=== PATIENT | female | born 1955 | race Hispanic/Latino ===

== ENCOUNTER → 2018-04-14 11:10 | Outpatient (CLI) | payer OTHER, SELFPAY ==
--- NOTE | 2018-04-14 | DI.MG.S_ITS ---
BILATERAL DIGITAL SCREENING MAMMOGRAM 3D/2D WITH CAD: 04/14/2018 CLINICAL: Routine screening. Comparison is made to exams dated: 08/08/2016 mammogram, 01/23/2011 mammogram, and 01/22/2010 mammogram - [facility]. There are scattered fibroglandular elements in both breasts. Current study was also evaluated with a Computer Aided Detection (CAD) system. No significant masses, calcifications, or other findings are seen in either breast. There has been no significant interval change. IMPRESSION: NEGATIVE There is no mammographic evidence of malignancy. A 1 year screening mammogram is recommended. This exam was interpreted at Station ID: [id number]. NOTE: For mammograms, a report in lay terms will be sent to the patient. Approximately 15% of breast malignancies will not be visualized mammographically. In the management of a palpable breast mass, a negative mammogram must not discourage biopsy of a clinically suspicious lesion. Electronically Signed By: Godwin sosa/penrad:04/14/2018 19:35:57 copy to: Henrique Gomes letter sent: Normal Exam ACR BI-RADS Category 1: Negative 3341F
== END ==
PROVIDERS: PCP Family Medicine; Visit Provider Family Medicine
DX: Z12.31 Encounter for screening mammogram for malignant neoplasm of breast (principal)
CPT/HCPCS: 77063; 77067

== ENCOUNTER → 2018-09-22 11:05 | Outpatient (CLI) | payer OTHER, SELFPAY ==
--- NOTE | 2018-09-22 | DI.US.S_ITS ---
ULTRASOUND OF RIGHT AXILLA: 09/22/2018 CLINICAL: Palpable right axilla lump. No prior exams were available for comparison. Ultrasound of the right axilla was performed. Large amounts of lipomatous tissue were seen, but no discrete lipoma. No suspicious lymph nodes or other axillary masses. IMPRESSION: NEGATIVE There is no sonographic evidence of malignancy. Lipomatous tissue corresponds to the patient's abnormality. Clinical followup is recommended. Return to annual mammogram screening schedule is recommended. Findings and recommendations conveyed to the patient. This exam was interpreted at Station ID: [id number]. Electronically Signed By: Donna forde/:09/22/2018 17:08:40 copy to: Henrique Gomes letter sent: Clinical Evaluation Ultrasound BI-RADS: 1 Negative
== END ==
PROVIDERS: PCP Family Medicine; Visit Provider Nurse Practitioner Family
DX: N63.31 Unspecified lump in axillary tail of the right breast (principal)
CPT/HCPCS: 76882

== ENCOUNTER 2018-10-29 09:54 | Day surgery (SDC) | payer OTHER, SELFPAY ==
[2018-10-15 09:27] VITALS: BMI 42.7
--- NOTE | 2018-10-29 | PATH_ITS ---
[facility] Accession Number: [id number] . 01 Material submitted: . breast - ECTOPIC BREAST TISSUE,RIGHT AXILLA . 02 Diagnosis: Ectopic Breast Tissue, Right Axilla (weight 255 grams): Skin with no significant histomorphologic abnormality. Fibroadipose tissue and benign breast parenchyma (13.5 cm in greatest dimension); negative for atypia or malignancy. MRV/11/02/2018 . 02 Electronically signed: . Kandace Osorio MD, Pathologist NPI- [id number] . 01 Gross description: . Received in formalin, labeled ectopic breast tissue right axilla, is an unoriented piece of adipose tissue (255 grams, 13.5 x 12.5 x 2.9 cm) with overlying garza smooth shiny unremarkable skin (12.3 x 8.0 cm). The adipose tissue has a garza-yellow homogeneous cut surface. No nodules, masses or lesions are identified. [employer] tissue submitted in cassettes A1 and A2. ([id number]) /MRV . 02 Pathologist provided ICD-10: D17.9 . 02 CPT . 679202 Performed at: 01 [facility] [address] [facility], [place], [place] [id number] MD Adriano Francois MD Phone: [phone] Performed at: 02 [facility] [address] [place], [place] [id number] MD Elizabet Hanna MD Phone: [phone]
[2018-10-29 10:35] VITALS: BP 147/88; PULSE 83; RESP 16; TEMP 36.7; O2SAT 95; BMI 42.7
[2018-10-29 10:48] VITALS: BMI 42.7
[2018-10-29] MEDS: CEFAZOLIN 2 GM/100 ML FROZ.PIGGY IV (12:30)
--- NOTE | 2018-10-29 12:32 | PM.PREOP ---
Pre-operative Note Interval Note History & Physical reviewed/Exam performed by Physician: Yes Changes to H&P: No H&P completed within 30 days and has changed as indicated here:: Please see office note from visit in September to my office for H&P.
--- NOTE | 2018-10-29 12:50 | SUR.OPER ---
Supine on padded OR bed, head on pillow, arms secured on padded arm boards at <90 degrees abduction, towel roll under scapula, pillow under right arm, legs uncrossed, safety belt at thigh, tape over blanket over lower legs.
[2018-10-29] MEDS: BUPIVACAINE 0.5% W/ EPI (PF) VIAL 30 ML INJ (13:30)
[2018-10-29 13:53] VITALS: BP 120/63; PULSE 79; RESP 10; TEMP 36.3; O2SAT 96
[2018-10-29 14:00] VITALS: BP 119/70; PULSE 88; RESP 17; O2SAT 93
[2018-10-29 14:05] VITALS: BP 116/62; PULSE 86; RESP 17; O2SAT 94
--- NOTE | 2018-10-29 14:09 | P.OP_ITS ---
Operative Date/Time/Diagnoses Date of procedure: 10/29/18 Time of procedure: 14:03 Pre-op diagnosis: LARGE AMOUNT OF RIGHT AXILLARY ECTOPIC BREAST TISSUE Post-op diagnosis: same Procedure & Clinicians Procedure: Excision of ectopic breast tissue Same procedure as scheduled: Yes Indications: Patient with a large amount of ectopic breast tissue in the right axilla. Becoming painful and interfering with movement of her arm. Surgeon: Alan Hopkins Click Yes if Unassisted: Yes Anesthesia Type: General Operative Notes Findings: Large amount of mostly fatty tissue in the right axilla. Measured a pproximately 15 x 10 x 7 cm Closure Type: primary Specimen(s): none sent Applied: drain(s) (7 mm Shabbir-Santos) Estimated Blood Loss (mL): 15 Blood products transfused: none Procedure in detail: Patient is placed supine on the operating table and underwent general LMA anesthesia. Roll was placed in the right flank the arm was supported on a pillow. She was prepped and draped in the usual fashion. Local anesthetic was infiltrated an elliptical incision made over this large mass in her right axilla. Incisions were carried down to the level of the axilla but we never entered the axilla. The tissue was excised. The patient had a Shabbir-Santos drain placed in the base. The deep fat was closed with interrupted 3 Vicryl. The subcu was closed with interrupted 3 0 Vicryl. Skin was closed with hari and a few interrupted 3 0 nylon sutures. Dressing was applied. Patient was awakened, extubated and taken recovery area in good condition. Complications: none Condition: stable Disposition: PACU Plan for aftercare: Follow-up in the office
[2018-10-29 14:10] VITALS: BP 124/68; PULSE 84; RESP 17; O2SAT 93
[2018-10-29 14:30] VITALS: BP 134/78; PULSE 82; RESP 18; TEMP 36.2; O2SAT 95
[2018-10-29] MEDS: HYDROCODONE/ACET 5/325 TABLET 1 TAB PO (14:51)
== END 2018-10-29 15:29 | disposition home or self-care (01) ==
PROVIDERS: PCP Family Medicine; Visit Provider Specialist
PROC: (CPT 19120; principal; 2018-10-29 11:15)
DX: Q83.8 Other congenital malformations of breast (principal)
CPT/HCPCS: 19120; J0690; J1100; J2250; J2405; J2704; J3010

== ENCOUNTER 2019-02-18 07:38 | Day surgery (SDC) | payer OTHER, SELFPAY ==
--- NOTE | 2019-02-18 | PATH_ITS ---
[facility] Accession Number: [id number] . 01 Material submitted: . cecum - CECAL BIOPSY . 02 Diagnosis: Cecum, Biopsy: Active colitis with ischemia-type changes. Please see comment. Negative for granulomas, dysplasia and malignancy. MRV 02/19/2019 1011 Local . 02 Comment: The differential diagnosis of ischemia-type change includes infection (i.e., enterohemorrhagic E. coli, C. difficile, etc.), true vascular ischemia, and trauma/prolapse. . 02 Electronically signed: . Elizabet Hanna MD, Pathologist NPI- [id number] . 01 Gross description: . CECAL BIOPSY: Received in formalin are 3 fragment(s) of garza, soft tissue measuring 0.1 x 0.1 x 0.1 cm to 0.2 x 0.1 x 0.1 cm which is entirely submitted and submitted entirely in 1 cassette(s) /[facility] 02/18/20191956 Local . 02 Pathologist provided ICD-10: K55.9 . 02 CPT . 368549 Performed at: 01 [facility] [address], [place], [place] [id number] MD Adriano Francois MD Phone: [phone] Performed at: 02 [facility] [address] [place], [place] [id number] MD Elizabet Hanna MD Phone: [phone]
[2019-02-18 07:59] VITALS: BMI 42.9
[2019-02-18 08:03] VITALS: BP 124/78; PULSE 73; RESP 20; TEMP 36.3; O2SAT 93
[2019-02-18] MEDS: SODIUM CHLORIDE 0.9% 1,000 ML 200 ML IV (08:09)
--- NOTE | 2019-02-18 08:42 | PM.HP.1 ---
History of Present Illness History of Present Illness Date Patient Seen: 02/18/19 Time Patient Seen: 08:42 Chief complaint: [id number] Narrative: The patient is a woman here for screening colonoscopy. Her last exam was over 10 years ago. No immediate family members with colon cancer though she did have an uncle and a dad side that she discovered recently has from colon cancer. Patient History Medical History (Updated 02/18/19 @ 08:43 by Alan Hopkins MD) Depression (Acute) Ectopic breast tissue (Acute) Surgical History History of (Resolved) Hx of Achilles tendon repair (Resolved ~2004) Family History Father Gallstones Diabetes mellitus Mother Diabetes mellitus Sister Diabetes mellitus Grandfather Heart disease Grandmother Heart disease Brother Heart disease Social History marital status: household members: spouse occupational status: previously employed Smoking Status: Never smoker alcohol intake: current substance use type: does not use Family & Social History Family History Father Gallstones Diabetes mellitus Mother Diabetes mellitus Sister Diabetes mellitus Grandfather Heart disease Grandmother Heart disease Brother Heart disease Social History: household members spouse Tobacco & Substance use: Smoking Status Never smoker alcohol intake current Substance Use Type does not use Meds Home Medications and Allergies Home Medications Medication Instructions Recorded Confirmed Type ibuprofen 600 mg tablet 600 mg PO BID 10/13/18 02/18/19 History Allergies Allergy/AdvReac Type Severity Reaction Status Date / Time codeine AdvReac Unknown Hallucinati Verified 02/18/19 07:58 ons Review of Systems Review of Systems ROS Unobtainable: All systems reviewed & are unremarkable except as noted in HPI and below Respiratory Comments: Has had asthma in the past. No cough at this time. Exam Vital Signs (past 8 hours): - 02/18/19 08:03 Temperature 97.4 F L Pulse Rate 73 Respiratory Rate 20 Blood Pressure 124/78 Pulse Oximetry 93 Oxygen Delivery Method Room Air Narrative Exam Narrative: Pleasant cooperative patient no apparent distress. Lungs are clear to auscultation. No rales or rhonchi. Heart regular rate and rhythm no murmur gallop. Abdomen is soft nontender without mass. No obvious hernias. Patient is alert and oriented x3. Assessment & Plan Assessment & Plan narrative: The patient for a screening colonoscopy. I have discussed the procedure with them. Risks of bleeding, perforation which would necessitate major operation, failure to find remove all lesions, the potential tattoo were all discussed. All questions were answered. They wished to proceed.
--- NOTE | 2019-02-18 08:44 | PM.PREOP ---
Pre-operative Note Interval Note History & Physical reviewed/Exam performed by Physician: Yes Changes to H&P: No ASA Class (for procedural sedation): I
[2019-02-18] MEDS: fentaNYL 250 MCG/5 ML INJ IV (08:49)
[2019-02-18] MEDS: MIDAZOLAM 5 MG/5 ML VIAL IV (08:50)
--- NOTE | 2019-02-18 09:13 | PM.OP.ENDO ---
Operative Date/Time/Diagnoses Date of procedure: 02/18/19 Time of procedure: 09:13 Pre-op diagnosis: Screening exam Post-op diagnosis: same (Inflammation around the appendiceal opening.) Procedure & Clinicians Study performed: Colonoscopy with cold biopsy Same procedure as scheduled: Yes Surgeon: Alan Hopkins Procedure Notes SCOAP/Timeout: Performed Procedure in detail: The patient was placed in the left lateral decubitus position and underwent IV sedation directed by the surgeon consisting of fentanyl and Versed. Digital exam was unremarkable. The scope was inserted and advanced through the rectum into the sigmoid, descending, transverse, and ascending colon. No lesions were seen.. The cecum was reached identified by the ileocecal valve and the appendiceal opening. When I initially entered the cecum the area around the appendix was bulged in as though there were mass and there was inflammation. However as I insufflated and the call cecum gradually expanded this area flattened but it remained inflamed. I took biopsies of the inflamed area. The ileocecal valve was briefly cannulated. The terminal ileum was normal in appearance. The scope was gradually brought out. No Polyps were found. The scope ultimately was retroflexed in the rectum. The appearance was normal go to the end. The scope was removed and the patient tolerated the procedure well. Prep was good. Scope withdrawal time: 8.5 minutes Sedation minutes: 20 Findings: other findings (Inflammation around the appendiceal opening) Specimen(s): other (Cecal biopsies) Post-procedure Recommendations: Colonscopy in 10 years Follow up: as needed Disposition: PACU
[2019-02-18 09:17] VITALS: BP 106/77; PULSE 78; RESP 18; TEMP 36.5; O2SAT 95
[2019-02-18 09:22] VITALS: BP 126/70; PULSE 75; RESP 14; O2SAT 93
[2019-02-18 09:27] VITALS: BP 121/81; PULSE 76; RESP 14; TEMP 36.8; O2SAT 97
[2019-02-18 09:36] VITALS: BP 139/81; PULSE 73; RESP 16; TEMP 36.5; O2SAT 95
== END 2019-02-18 09:55 | disposition home or self-care (01) ==
PROVIDERS: PCP Family Medicine; Visit Provider Specialist
PROC: 0DJD8ZZ Inspection of Lower Intestinal Tract, Via Natural or Artificial Opening Endoscopic (ICD-10-PCS; CPT 45378; principal; 2019-02-18 08:45)
DX: Z12.11 Encounter for screening for malignant neoplasm of colon (principal); K52.89 Other specified noninfective gastroenteritis and colitis
CPT/HCPCS: 45380; 99152; J2250; J3010

== ENCOUNTER → 2020-05-29 11:32 | Outpatient (CLI) | payer OTHER, SELFPAY ==
--- NOTE | 2020-05-29 | DI.MRI.S_ITS ---
PROCEDURE: MR LUMBAR SPINE WO CON INDICATIONS: Monoplegia of lower limb affecting TECHNIQUE: Noncontrast sagittal T1 spin echo and T2 fast echo, sagittal STIR, axial T1 and T2 fast spin echo through the lumbar spine. In cases with scoliosis, additional coronal T2 fast spin echo may be performed. COMPARISON: None. FINDINGS: Image quality: Excellent. Alignment and Curvature: There is normal bony alignment. Bone Marrow: Marrow is of normal overall signal. No acute vertebral body compression fractures. Spinal Cord: Conus medullaris terminates at the L1 level. Visualized cord demonstrates normal signal and size. Paraspinous Soft Tissues: No paravertebral masses. T12-L1: Disc bulge. Mild facet hypertrophy. No canal stenosis or foraminal stenosis. L1-L2: Disc bulge. Facet hypertrophy. No canal stenosis or foraminal stenosis. L2-L3: Disc bulge. Shallow associated minimal posterior disc extrusion behind superior portion of L3 without associated canal stenosis. Bilateral facet hypertrophy, right greater than left. Mild left foraminal narrowing. L3-L4: Moderate diffuse disc bulge. Facet and ligament hypertrophy. Mild canal stenosis. Mild bilateral foraminal stenosis. L4-L5: Moderate disc height loss. Moderate central posterior disc protrusion indenting on the thecal sac. Facet and ligament hypertrophy. Spiy-iu-gbeczyff canal stenosis. Mild left foraminal narrowing. L5-S1: Disc bulge. Bilateral facet hypertrophy. No significant canal stenosis. Mild bilateral foraminal narrowing. IMPRESSION: 1. Diffuse degenerative change. 2. Canal stenosis is mild at L3-L4 and yuel-bn-rreahjje at L4-L5. 3. Multilevel facet arthropathy. Dictated by: Jair Phillips M.D. on 05/29/2020 at 12:12 Approved by: Jair Phillips M.D. on 05/29/2020 at 12:17
== END ==
PROVIDERS: Referring Provider Nurse Practitioner Family; Visit Provider Nurse Practitioner Family
DX: G83.10 Monoplegia of lower limb affecting unspecified side (principal); M47.816 Spondylosis without myelopathy or radiculopathy, lumbar region; M48.061 Spinal stenosis, lumbar region without neurogenic claudication
CPT/HCPCS: 72148

== ENCOUNTER → 2021-03-29 09:09 | Outpatient (CLI) | payer MEDICARE, OTHER, SELFPAY ==
[2021-03-29 10:17] LABS: Add Manual Diff / Slide Review NO; Basophils Absolute Auto 100 /uL (0-100); Basophils Percent Auto 0.7 % (0-2); Eosinophils Absolute Auto 600 /uL (0-450); Eosinophils Percent Auto 7.6 % (2-4); Hematocrit 45.9 % (36-46); Hemoglobin 15.6 g/dL (12.0-16.0); Lymphocytes Absolute Auto 3000 /uL (1100-4500); Lymphocytes Percent Auto 36.8 % (25-40); Mean Corpuscular Hemoglobin 32.4 PG (26-34); Mean Corpuscular Volume 95.3 fL (80-100); Monocytes Absolute Auto 700 /uL (0-900); Neutrophils Absolute Auto 3700 /uL (1500-7000); Neutrophils Percent Auto 45.9 % (50-75); Platelet Count 179 X10^3/uL (150-400); Red Blood Cell Count 4.81 X10^6/uL (4.0-5.2); Red Cell Distribution Width 13.8 % (11.6-14.8); White Blood Cell Count 8.1 X10^3/uL (4.5-11.0)
[2021-03-29 11:02] LABS: Alanine Aminotransferase 57 IU/L (<35); Albumin 4.3 g/dL (3.5-5.0); Albumin Globulin Ratio 1.1 (1.0-2.8); Alkaline Phosphatase 100 U/L (38-126); Aspartate Aminotransferase 69 IU/L (14-36); BUN Creatinine Ratio 22.6 (6-22); Bilirubin Total 1.5 mg/dL (0.2-1.3); Blood Urea Nitrogen 14 mg/dL (7-17); Calcium 9.2 mg/dL (8.4-10.2); Carbon Dioxide 26 mmol/L (22-32); Chloride 107 mmol/L (98-107); Cholesterol 244 mg/dL (140-199); Estimated Glomerular Filt Rate > 60.0 mL/min (>60); Globulin 3.9 g/dL (1.7-4.1); Glucose 115 mg/dL (80-110); HDL Cholesterol 70 mg/dL (40-60); LDL Cholesterol Calculated 147 mg/dL (<100); Potassium 5.3 mmol/L (3.4-5.1); Sodium 141 mmol/L (137-145); Total Protein 8.2 g/dL (6.3-8.2); Triglycerides 133 mg/dL (35-150)
[2021-03-29 11:22] LABS: HEMOLYSIS 273 (0-50)
[2021-03-29 11:44] LABS: TSH w/ Reflex to FT4 4.03 uIU/mL (0.47-4.68)
[2021-03-29 15:59] LABS: Creatinine Urine Random 85.8 mg/dL
[2021-03-29 16:01] LABS: Microalbumin Urine Random < 0.6 mg/dL (0-1.6)
== END ==
PROVIDERS: Family Provider Family Medicine; PCP Family Medicine; Referring Provider Family Medicine; Visit Provider Family Medicine
DX: G89.29 Other chronic pain (principal); I10 Essential (primary) hypertension; M54.50 Low back pain, unspecified; R20.0 Anesthesia of skin
CPT/HCPCS: 36415; 80053; 80061; 82043; 82570; 84443; 85025

== ENCOUNTER → 2021-04-02 12:18 | Outpatient (CLI) | payer MEDICARE, OTHER, SELFPAY ==
--- NOTE | 2021-04-02 12:21 | DI.MRI.S_ITS ---
PROCEDURE: MR LUMBAR SPINE WO CON INDICATIONS: low back pain with left-sided numbness TECHNIQUE: Noncontrast sagittal T1 spin echo and T2 fast echo, sagittal STIR, axial T1 and T2 fast spin echo through the lumbar spine. In cases with scoliosis, additional coronal T2 fast spin echo may be performed. COMPARISON: [facility], , MR LUMBAR SPINE WO CON, 05/29/2020, 11:35. FINDINGS: Image quality: Excellent. Alignment and Curvature: No plain films are available for comparison, for numbering purposes. Thus, for the purposes of this examination, 5 lumbar type vertebral bodies will be presumed, as denoted on the montage panel. This should be confirmed and correlated with plain films, prior to any lumbar spinal intervention. There is mild, grade 1 retrolisthesis of T11 on T12, T12 on L1, L1 on L2, and L2 on L3. Bone Marrow: Marrow is of normal overall signal. No acute vertebral body compression fractures. Mild reactive signal throughout the endplates of the lumbar and lower thoracic spine. Spinal Cord: Conus medullaris terminates at the mid L1 level. Visualized cord demonstrates normal signal and size. Paraspinous Soft Tissues: No paravertebral masses. T12-L1: Moderate disc height loss and desiccation. Mild diffuse disc bulge with small superimposed central protrusion. Mild facet and ligamentum flavum hypertrophy. Mild canal stenosis. Mild bilateral foraminal stenosis. No significant change. L1-L2: Moderate disc height loss and desiccation. Mild diffuse disc bulge with superimposed broad-based left posterolateral protrusion. Mild facet and ligamentum flavum hypertrophy. Mild epidural lipomatosis. Mild canal stenosis. Mild left greater than right foraminal stenosis. No significant change. L2-L3: Moderate disc height loss and desiccation. Mild diffuse disc bulge with superimposed left paracentral disc extrusion which extends inferiorly within the left anterior epidural space, and is unchanged. There is a superimposed broad-based left far lateral protrusion, as before. Mild facet and ligamentum flavum hypertrophy. Mild epidural lipomatosis. Moderate canal stenosis. Mild left greater than right foraminal stenosis. No significant change. L3-L4: Moderate disc height loss and desiccation. Moderate diffuse disc bulge. Mild facet and ligamentum flavum hypertrophy. Mild epidural lipomatosis. Severe canal stenosis. Moderate right and mild left foraminal stenosis. No significant change. L4-L5: Severe disc height loss and desiccation. Moderate diffuse disc bulge with small superimposed central protrusion. Mild facet and ligamentum flavum hypertrophy. Mild epidural lipomatosis. Increased, severe canal stenosis. Increased, moderate bilateral foraminal stenosis. L5-S1: Moderate disc height loss and desiccation. Mild diffuse disc bulge. Mild bilateral facet hypertrophy. Mild canal stenosis. Moderate bilateral foraminal stenosis. No significant change. IMPRESSION: 1. Multilevel degenerative disc and facet disease, as well as ligamentum flavum hypertrophy and epidural lipomatosis. 2. Multilevel canal stenoses, worst at L3-L4 and L4-L5, where there is severe canal stenosis. 3. Multilevel foraminal stenoses, worst at L3-L4, L4-L5, and L5-S1, where there are moderate foraminal stenoses. Dictated by: Sharon Butcher M.D. on 04/02/2021 at 13:52 Approved by: Sharon Butcher M.D. on 04/02/2021 at 14:01
== END ==
PROVIDERS: Family Provider Family Medicine; PCP Family Medicine; Referring Provider Family Medicine; Visit Provider Family Medicine
DX: M51.36 Other intervertebral disc degeneration, lumbar region (principal); M54.50 Low back pain, unspecified; M51.37 Other intervertebral disc degeneration, lumbosacral region; M48.07 Spinal stenosis, lumbosacral region; M48.061 Spinal stenosis, lumbar region without neurogenic claudication; R20.0 Anesthesia of skin; G89.29 Other chronic pain; I10 Essential (primary) hypertension; E88.2 Lipomatosis, not elsewhere classified
CPT/HCPCS: 72148

== ENCOUNTER → 2021-04-12 12:07 | Outpatient (CLI) | payer MEDICARE, OTHER, SELFPAY ==
--- NOTE | 2021-04-12 12:09 | DI.MG.S_ITS ---
BILATERAL DIGITAL SCREENING MAMMOGRAM 3D/2D WITH CAD: 04/12/2021 CLINICAL: Routine screening. Comparison is made to exams dated: 04/14/2018 mammogram, 08/08/2016 mammogram, and 01/23/2011 mammogram - [facility]. There are scattered fibroglandular elements in both breasts. Current study was also evaluated with a Computer Aided Detection (CAD) system. No significant masses, calcifications, or other findings are seen in either breast. There has been no significant interval change. IMPRESSION: NEGATIVE There is no mammographic evidence of malignancy. A 1 year screening mammogram is recommended. This exam was interpreted at Station ID: [id number]. NOTE: For mammograms, a report in lay terms will be sent to the patient. Approximately 15% of breast malignancies will not be visualized mammographically. In the management of a palpable breast mass, a negative mammogram must not discourage biopsy of a clinically suspicious lesion. Electronically Signed By: Chivo Baum M.D. at/oskar:04/12/2021 12:59:47 copy to: Henrique Gomes letter sent: Normal Exam ACR BI-RADS Category 1: Negative 3341F
== END ==
PROVIDERS: Family Provider Family Medicine; PCP Family Medicine; Referring Provider Family Medicine; Visit Provider Family Medicine
DX: Z12.31 Encounter for screening mammogram for malignant neoplasm of breast (principal)
CPT/HCPCS: 77063; 77067

== ENCOUNTER → 2021-04-18 10:07 | Outpatient (CLI) | payer MEDICARE, OTHER, SELFPAY | PROVIDERS: Family Provider Family Medicine; PCP Family Medicine; Referring Provider Family Medicine; Visit Provider Family Medicine | DX: Z78.0 Asymptomatic menopausal state (principal); Z82.62 Family history of osteoporosis; Z13.820 Encounter for screening for osteoporosis; M85.852 Other specified disorders of bone density and structure, left thigh | CPT/HCPCS: 77080 ==

== ENCOUNTER → 2021-10-02 08:07 | Outpatient (CLI) | payer MEDICARE, OTHER, SELFPAY ==
[2021-10-02 09:45] LABS: Alanine Aminotransferase 46 IU/L (<35); Albumin 3.6 g/dL (3.5-5.0); Albumin Globulin Ratio 1.1 (1.0-2.8); Alkaline Phosphatase 118 U/L (38-126); Aspartate Aminotransferase 45 IU/L (14-36); BUN Creatinine Ratio 21.7 (6-22); Bilirubin Total 0.6 mg/dL (0.2-1.3); Blood Urea Nitrogen 15 mg/dL (7-17); Calcium 8.8 mg/dL (8.4-10.2); Carbon Dioxide 27 mmol/L (22-32); Chloride 109 mmol/L (98-107); Estimated Glomerular Filt Rate > 60 mL/min (>60); Globulin 3.3 g/dL (1.7-4.1); Glucose 115 mg/dL (80-110); HEMOLYSIS < 15 (0-50); Potassium 4.3 mmol/L (3.4-5.1); Sodium 141 mmol/L (137-145); Total Protein 6.9 g/dL (6.3-8.2)
== END ==
PROVIDERS: Family Provider Family Medicine; PCP Family Medicine; Referring Provider Family Medicine; Visit Provider Family Medicine
DX: R74.8 Abnormal levels of other serum enzymes (principal)
CPT/HCPCS: 36415; 80053

== ENCOUNTER → 2021-10-15 11:58 | Outpatient (CLI) | payer MEDICARE, OTHER, SELFPAY ==
--- NOTE | 2021-10-15 11:59 | DI.RAD.S_ITS ---
PROCEDURE: XR KNEE RT 3V INDICATIONS: bilateral knee pain TECHNIQUE: 3 views of the knee were acquired. COMPARISON: None. FINDINGS: Bones: No fractures or dislocations. No suspicious bony lesions. Mild medial compartment joint space loss. No osteophytosis. Soft tissues: No joint effusion. No suspicious soft tissue calcifications. IMPRESSION: Mild medial compartment joint space loss. No evidence acute bony abnormality of the right knee. If clinical suspicion and/or symptoms persist, further assessment with repeat plain films, or advanced imaging (e.g., CT, MRI, or bone scan) may be helpful for further assessment. Dictated by: Jair Phillips M.D. on 10/15/2021 at 14:48 Approved by: Jair Phillips M.D. on 10/15/2021 at 14:50
--- NOTE | 2021-10-15 11:59 | DI.RAD.S_ITS ---
PROCEDURE: XR KNEE LT 3V INDICATIONS: bilateral knee pain TECHNIQUE: 3 views of the knee were acquired. COMPARISON: None. FINDINGS: Bones: No fractures or dislocations. No suspicious bony lesions. Mild medial compartment joint space loss without osteophytosis. Soft tissues: No joint effusion. No suspicious soft tissue calcifications. IMPRESSION: Mild medial compartment joint space loss. No evidence acute bony abnormality of the left knee. If clinical suspicion and/or symptoms persist, further assessment with repeat plain films, or advanced imaging (e.g., CT, MRI, or bone scan) may be helpful for further assessment. Dictated by: Jair Phillips M.D. on 10/15/2021 at 14:47 Approved by: Jair Phillips M.D. on 10/15/2021 at 14:48
== END ==
PROVIDERS: Family Provider Family Medicine; PCP Family Medicine; Referring Provider Family Medicine; Visit Provider Family Medicine
DX: M25.561 Pain in right knee (principal); M25.562 Pain in left knee
CPT/HCPCS: 73562

== ENCOUNTER → 2021-12-18 07:45 | Outpatient (CLI) | payer MEDICARE, OTHER, SELFPAY ==
[2021-12-18 10:31] LABS: Alanine Aminotransferase 44 IU/L (<35); Albumin 3.7 g/dL (3.5-5.0); Albumin Globulin Ratio 1.2 (1.0-2.8); Alkaline Phosphatase 110 U/L (38-126); Aspartate Aminotransferase 40 IU/L (14-36); BUN Creatinine Ratio 20.3 (6-22); Bilirubin Total 0.5 mg/dL (0.2-1.3); Blood Urea Nitrogen 14 mg/dL (7-17); Calcium 8.9 mg/dL (8.4-10.2); Carbon Dioxide 26 mmol/L (22-32); Chloride 108 mmol/L (98-107); Estimated Glomerular Filt Rate > 60 mL/min (>60); Globulin 3.2 g/dL (1.7-4.1); Glucose 110 mg/dL (80-110); HEMOLYSIS < 15 (0-50); Potassium 4.4 mmol/L (3.4-5.1); Sodium 141 mmol/L (137-145); Total Protein 6.9 g/dL (6.3-8.2)
[2021-12-18 10:39] LABS: NT-proBNP (BNP-Adult 18+) 98 pg/mL (<125)
== END ==
PROVIDERS: Family Provider Family Medicine; PCP Family Medicine; Referring Provider Family Medicine; Visit Provider Family Medicine
DX: R60.0 Localized edema (principal); R01.1 Cardiac murmur, unspecified; R74.8 Abnormal levels of other serum enzymes
CPT/HCPCS: 36415; 80053; 83880

== ENCOUNTER → 2022-01-17 09:23 | Outpatient (CLI) | payer MEDICARE, OTHER, SELFPAY ==
--- NOTE | 2022-01-17 09:25 | DI.ECHO.S_ITS ---
[facility]---------+ [facility] +---------+ : : [address] : : : : [id number] : : : : Phone: [phone] Echocardiogram Report + + :Name: SAE NAGEL Study Date: 01/17/2022 Height: 60 in : :[facility] ReadingLocation: Weight: 190 lb : : Gender: Female BSA: 1.8 m2 : :: 1955 Age: 66 yrs BP: 156/109 mmHg: :Reason For Study: Murmur : :Ordering Physician: GUILLERMO, : :ANDRESSA Performed By: Fito Jefferson : :Referring: ANDRESSA LI : + + Interpretation Summary The left ventricle is normal in size. Left ventricular systolic function is normal. The ejection fraction is estimated to be 55-60%. There are no focal wall motion abnormalities. Diastolic parameters suggest a relaxation abnormality of the left ventricle, consistent with probable normal filling pressures. The right ventricle is normal in size and function. Pulmonary artery pressures cannot be estimated because of the lack of a measurable TR jet velocity. Both atria are normal in size. There is no significant valvular heart disease. The ascending aorta is mild-moderately enlarged. Procedure: A two-dimensional transthoracic echocardiogram with color flow and Doppler was performed. The study quality was technically adequate. There is no prior echocardiogram noted for this patient. The patient was in normal sinus rhythm during the exam. Left Ventricle: The left ventricle is normal in size. There is borderline concentric left ventricular hypertrophy. Left ventricular systolic function is normal. The ejection fraction is estimated to be 55-60%. There are no focal wall motion abnormalities. Diastolic parameters suggest a relaxation abnormality of the left ventricle, consistent with probable normal filling pressures. Right Ventricle: The right ventricle is normal in size and function. Atria: Both atria are normal in size. The interatrial septum grossly appears intact with no obvious evidence for an atrial septal defect. Mitral Valve: There is mild mitral annular calcification. There is no mitral regurgitation noted. Aortic Valve: The aortic valve is normal in structure and function. No aortic regurgitation is present. Tricuspid Valve: The tricuspid valve is normal in structure and function. There is a trace or physiologic amount of tricuspid regurgitation. Pulmonary artery pressures cannot be estimated because of the lack of a measurable TR jet velocity. Pulmonic Valve: The pulmonic valve is normal in structure and function. There is no pulmonic valvular regurgitation. There is no significant valvular heart disease. Great Vessels: The aortic root is normal size. The ascending aorta is mild- moderately enlarged. The IVC is of normal diameter and collapses greater than 50% with a sniff. This suggests a low right atrial pressure of 3 mm Hg. Pericardium/ Pleura There is no pericardial effusion. There is no pleural effusion. MMode/2D Measurements & Calculations LVIDd: 4.5 cm LVOT diam: 2.0 cm LVIDs: 3.0 cm Ao root diam: 2.9 cm FS: 33.5 % asc Aorta Diam: 4.0 cm IVSd: 1.2 cm LVPWd: 1.0 cm LV guerrero. diameter/BSA (cm/m^2): 2.5 LV sys. diameter/BSA (cm/m^2): 1.6 LA dimension: 3.5 cm RA long axis: 3.8 cm LA A2 area: 18.9 cm2 LA A4 area: 15.1 cm2 LA length (vol): 5.5 cm LA vol: 43.7 ml LA vol index: 23.9 ml/m2 TAPSE_phl: 1.9 cm Doppler Measurements & Calculations Ao V2 max: 175.0 cm/sec LVOT Max Mirza: 121.0 cm/sec Ao V2 mean: 114.0 cm/sec LV V1 max P.9 mmHg Ao max P.0 mmHg LV V1 VTI: 19.4 cm Ao mean P.0 mmHg KATY(I,D): 2.1 cm2 Ao V2 VTI: 28.9 cm KATY(V,D): 2.2 cm2 sev ratio: 0.67 KATY indexed to BSA (cm^2/m^2): 1.2 MV E max mirza: 52.3 cm/sec SV(LVOT): 60.9 ml MV A max mirza: 88.7 cm/sec MV E/A: 0.59 Med Peak E' Mirza: 5.3 cm/sec E/E' med: 9.8 Lat Peak E' Mirza: 8.2 cm/sec E/E' lat: 6.4 E/e' average: 8.1 MV dec time: 0.28 sec AV VR_phl: 0.69 MV P1/2t-pr_phl: 80.0 msec KATY(VTI)/BSA_phl: 1.1 Reading Physician:07:37 PM
== END ==
PROVIDERS: Family Provider Family Medicine; PCP Family Medicine; Referring Provider Family Medicine; Visit Provider Family Medicine
DX: I77.89 Other specified disorders of arteries and arterioles (principal); R01.1 Cardiac murmur, unspecified; R60.0 Localized edema
CPT/HCPCS: 93306

== ENCOUNTER 2022-03-07 14:12 | Outpatient (CLI) | payer MEDICARE, OTHER, SELFPAY ==
[2022-03-07] VITALS (8 sets, daily range): BP systolic 128–166; BP diastolic 63–85; PULSE 64–78; RESP 14–21; TEMP 36.3; O2SAT 95–96
--- NOTE | 2022-03-07 14:14 | DI.RAD.S_ITS ---
PROCEDURE: PAIN L/S TRANSFORAMINAL INJECT INDICATIONS: SPONDYLOSIS COMPARISON: None. FINDINGS: Fluoroscopic spot filming was performed to verify placement of spinal needles at the left L4-L5 level(s), as labeled on the films. IMPRESSION: As labeled on the films, left L4-L5 needle placement. Dictated by: Stuart Maddox M.D. on 03/07/2022 at 17:15 Approved by: Stuart Maddox M.D. on 03/07/2022 at 17:15
[2022-03-07] MEDS: BETAMETHASONE 30 MG/5 ML MDV 6 MG INJ (14:54)
[2022-03-07] MEDS: MIDAZOLAM 2 MG/2 ML VIAL 4 MG IV (14:54)
[2022-03-07] MEDS: BUPIVACAINE 0.25% (PF) VIAL 2 ML INJ (14:54)
[2022-03-07] MEDS: IOPAMIDOL 15 ML VIAL 3 ML INJ (14:54)
[2022-03-07] MEDS: DEXAMETHASONE 10 MG/ML VIAL 20 MG INJ (14:55)
--- NOTE | 2022-03-07 15:09 | P.PCN_ITS ---
Date/Time/Diagnoses Date of procedure: 03/07/22 Time of procedure: 15:09 Pre-procedure diagnosis: 1. FORAMINAL STENOSIS WITH LE SYMPTOMS Post-procedure diagnosis: same Procedure Notes Procedure: 1. FLUOROSCOPICALLY GUIDED CONTRAST CONTROLLED TRANSFORAMINAL EPIDURAL STEROID INJECTION - LEFT L4/5 Indications: Benita is referred by Dr. Menezes for treatment of Foraminal Stenosis with Left LE Symptoms Physician: Xavier Okeefe Total Fluoroscopy time (seconds): 9 Total sedation minutes: 9 Complications: none Procedure in detail & Post-procedure care: FINDINGS Foraminal Nerve Root Compression secondary to disc disease and facet hypertrophy DESCRIPTION OF PROCEDURE Following review of allergy and review of potential side effects and complications, including, but not necessarily limited to, infection, allergic reaction, local tissue breakdown, stroke, temporary or permanent nerve injury, paralysis, and possible , the patient indicated that the patient understood and agreed to proceed. An informed consent document was signed by the patient, witnessed by a nurse, and placed in the patient's chart. Additionally, other treatment options including medications, modalities, and physical therapy were reviewed with the patient. After review of previous anaesthesic history and IV conscious sedation the patient was deemed safe to proceed with today?s procedure with IV conscious sedation as ASA class II designation. Safety time-out was performed to confirm patient ID, procedure to be performed and site of procedure. IV sedation was accomplished with a combination of 4mg of Versed administered by the RN after DO order, titrated to patient comfort during the course of the procedure while the patient remained responsive to all verbal commands In the prone position following sterile prep and drape of the lumbar region, the left L4/5 posterior neuroforamen was identified fluoroscopically. The skin was anesthetized via a 25-gauge 1.5-inch needle with 1% lidocaine solution. At this point, a 22-gauge 5-inch spinal needle was atraumatically introduced and advanced under fluoroscopic guidance through the posterior left L4/5 neuroforamen to approximately the anterior aspect of the canal. Depth was confirmed on lateral view. Following negative aspiration, injection of approximately 1.5 cc of Isovue 200 under live fluoroscopy in the AP view confirmed excellent flow along the nerve root, into the epidural space without vascular or intrathecal uptake observed Radiological data, including multiple fluoroscopic views of the lumbosacral spine, reveal a spinal needle at the left L4/5 posterior neuroforamen. Subsequent views show flow of contrast material flowing superiorly and inferiorly along the nerve root confirming epidural flow. Subsequently, a test dose of 1.5 cc of 1% lidocaine solution was administered and patient was observed for two minutes for signs or symptoms of complications, including abdominal pain, shortness of breath, bilateral upper or lower extremity weakness, nausea and vomiting, prior to steroid injection. At this point, a total of 3cc or 20mg of dexamethasone and 6mg of betamethasone was injected without incident. The procedure tolerated the procedure well without signs or symptoms of complications prior to transfer to the recovery area continued monitoring without incident. The patient was then transferred to the recovery area where they were observed for an appropriate time after the injection. The patient reported a VAS score of 7 prior to the procedure and a post- procedure VAS of 0. POST OP INSTRUCTIONS The patient was provided a Pain Log to continue to record their response to the target-specific procedure prior to follow-up visit with their referring physician. Additionally, specific post-injection care instructions and a contact number to our office were provided if concerns arise regarding possible complications associated with the procedure are suspected.
== END 2022-03-07 15:32 | disposition home or self-care (01) ==
LOC: RAD 14:12
PROVIDERS: Family Provider Family Medicine; PCP Family Medicine; Referring Provider Physical Medicine & Rehabilitation; Visit Provider Physical Medicine & Rehabilitation
DX: M48.061 Spinal stenosis, lumbar region without neurogenic claudication (principal); M51.16 Intervertebral disc disorders with radiculopathy, lumbar region
CPT/HCPCS: 64483; J0702; J1100; J2250; J3490

== ENCOUNTER 2022-06-25 10:38 | Outpatient (CLI) | payer MEDICARE, OTHER, SELFPAY ==
[2022-06-25] VITALS (9 sets, daily range): BP systolic 129–172; BP diastolic 62–101; PULSE 71–88; RESP 16–22; TEMP 36.2; O2SAT 94–100
--- NOTE | 2022-06-25 10:40 | DI.RAD.S_ITS ---
PROCEDURE: PAIN L INTERLAMINAR/CAUDAL INJ INDICATIONS: SPONDYLOSIS COMPARISON: [facility], XA, PAIN L/S TRANSFORAMINAL INJECT, 03/07/2022, 14:54. [facility] [place], CR, XR LUMBAR SPINE WITH OBLIQUES, 04/17/2021, 10:38. FINDINGS: Fluoroscopic spot filming was performed to verify placement of spinal needles at the L4-L5 level(s), as labeled on the films. Appropriate location(s) of the needle tip(s) was confirmed by injection of iodinated contrast. IMPRESSION: Procedural imaging guidance provided. Dictated by: Priyank Cummings M.D. on 06/25/2022 at 12:46 Approved by: Priyank Cummings M.D. on 06/25/2022 at 12:47
[2022-06-25] MEDS: MIDAZOLAM 2 MG/2 ML VIAL IV (11:26)
[2022-06-25] MEDS: BETAMETHASONE 30 MG/5 ML MDV 6 MG INJ (11:31)
[2022-06-25] MEDS: IOPAMIDOL 15 ML VIAL 3 ML INJ (11:31)
[2022-06-25] MEDS: DEXAMETHASONE 10 MG/ML VIAL 20 MG INJ (11:32)
[2022-06-25] MEDS: BUPIVACAINE 0.25% (PF) VIAL 2 ML SUBCUT (11:32)
--- NOTE | 2022-06-25 11:39 | P.PCN_ITS ---
Date/Time/Diagnoses Date of procedure: 06/25/22 Time of procedure: 11:40 Pre-procedure diagnosis: 1. HNP WITH RADICULAR FEATURES, 2. MULTILEVEL CENTRAL STENOSIS, Post-procedure diagnosis: same Procedure Notes Procedure: 1. FLUOROSCOPICALLY GUIDED CONTRAST CONTROLLED INTERLAMINAR EPIDURAL STEROID INJECTION -L4/5 Indications: Benita is referred by Dr. Menezes for treatment of Bilateral Foraminal Stenosis R>L LE symptoms. Physician: Xavier Okeefe Total Fluoroscopy time (seconds): 6 Total sedation minutes: 8 Complications: none Procedure in detail & Post-procedure care: FINDINGS Multilevel Central Spinal Stenosis with Nerve Root Compression DESCRIPTION OF PROCEDURE Fluoroscopically guided, contrast-controlled L4/5 translaminar epidural steroid injection. Following review of allergy and review of potential side effects and complications, including, but not necessarily limited to, infection, allergic reaction, local tissue breakdown, temporary as well as permanent nerve injury, paralysis, stroke and possible , the patient indicated that the patient understood and agreed to proceed. An informed consent document was signed by the patient, witnessed by a nurse, and placed in the patient's chart. Additionally, other treatment options including modalities, medications, and physical therapy were reviewed with the patient. After review of previous anaesthesic history and IV conscious sedation the patient was deemed safe to proceed with today?s procedure with IV conscious sedation as ASA class II designation. Safety time-out was performed to confirm patient ID, procedure to be performed and site of procedure. IV sedation was accomplished with a combination of 2mg of Versed was administered by the RN after DO order, titrated to patient comfort during the course of the procedure while the patient remained responsive to all verbal commands In the prone position, following sterile prep and drape of the lumbar region, the L4/5 translaminar space was identified fluoroscopically. The skin was anesthetized via a 25-gauge, 1.5inch needle with 1% lidocaine solution. At this point, a 22-gauge short bevel spinal needle was atraumatically introduced and ad vanced under fluoroscopic guidance into the region of the L4/5 translaminar space. Depth was confirmed on lateral view. Radiological data, including multiple fluoroscopic views of the lumbar spine, reveal a spinal needle at the L4/5 translaminar space. Lateral views then show placement of the needle in the epidural space. Subsequent views show contrast material flowing superiorly and inferiorly in the epidural space. No vascular or intrathecal uptake is observed. At this point, using loss of resistance technique with saline and air, the epidural space was entered. This was confirmed following negative aspiration with injection of approximately 1.5cc of Isovue 200, showing excellent epidural flow without vascular or intrathecal uptake. At this point, 1cc of 1% lidocaine solution combined with 3cc or 20mg of dexamethasone and 6mg betamethasone was injected without incident. The patient tolerated the procedure well without signs or symptoms of complications prior to transfer to the recovery area continued monitoring without incident. The patient was then transferred to the recovery area where they were observed for an appropriate period of time after the injection. The patient reported a VAS score of 6 prior to the procedure and a post- procedure VAS of 0. POST OP INSTRUCTIONS The patient was provided a Pain Log to continue to record their response to the target-specific procedure prior to follow-up visit with their referring physician. Additionally, specific post-injection care instructions and a contact number to our office were provided if concerns arise regarding possible complications associated with the procedure are suspected.
== END 2022-06-25 12:05 | disposition home or self-care (01) ==
LOC: RAD 10:39
PROVIDERS: Family Provider Family Medicine; PCP Family Medicine; Referring Provider Physical Medicine & Rehabilitation; Visit Provider Physical Medicine & Rehabilitation
DX: M51.16 Intervertebral disc disorders with radiculopathy, lumbar region (principal); M48.061 Spinal stenosis, lumbar region without neurogenic claudication
CPT/HCPCS: 62323; J0702; J1100; J2250; J3490

== ENCOUNTER → 2022-07-17 12:09 | Outpatient (CLI) | payer MEDICARE, OTHER, SELFPAY ==
--- NOTE | 2022-07-17 12:10 | DI.RAD.S_ITS ---
PROCEDURE: XR LUMBAR SPINE MIN 4V INDICATIONS: BACK PAIN TECHNIQUE: 5 views of the lumbar spine were acquired, including bilateral oblique views. COMPARISON: None. FINDINGS: Bones: 5 nonrib-bearing vertebrae are present. Trace retrolisthesis L1 on L2. Severe disc height loss L4-5 and moderate disc height loss at other levels including T12-L1. Mild anterior endplate spurs, most prominent at L4-5. Multilevel facet hypertrophy and sclerosis from L3 through S1. No vertebral body compression fractures. No suspicious bony lesions. Soft tissues: Overlying bowel gas pattern is normal. No suspicious soft tissue calcifications. Oblique images: No pars defects. IMPRESSION: 1. Multilevel spondylosis. 2. Trace spondylolisthesis. Dictated by: Donna Rojas M.D. on 07/17/2022 at 13:15 Approved by: Donna Rojas M.D. on 07/17/2022 at 13:18
== END ==
PROVIDERS: Family Provider Family Medicine; PCP Family Medicine; Referring Provider Physical Medicine & Rehabilitation; Visit Provider Physical Medicine & Rehabilitation
DX: M48.061 Spinal stenosis, lumbar region without neurogenic claudication (principal); M51.16 Intervertebral disc disorders with radiculopathy, lumbar region; M47.26 Other spondylosis with radiculopathy, lumbar region; M47.27 Other spondylosis with radiculopathy, lumbosacral region
CPT/HCPCS: 72110

== ENCOUNTER → 2022-07-29 12:10 | Outpatient (CLI) | payer MEDICARE, OTHER, SELFPAY ==
--- NOTE | 2022-07-29 12:19 | DI.MRI.S_ITS ---
PROCEDURE: MR LUMBAR SPINE WO CON INDICATIONS: progressive Stenosis TECHNIQUE: Noncontrast sagittal T1 spin echo and T2 fast echo, coronal T2, sagittal STIR, and T2 fast spin echo through the lumbar spine. COMPARISON: [facility], MR, MR LUMBAR SPINE WO CON, 04/02/2021, 12:32. [facility], CR, XR LUMBAR SPINE MIN 4V, 07/17/2022, 12:07. FINDINGS: Image quality: Excellent. Alignment and Curvature: 5 lumbar type vertebral bodies are present by plain film. 2 mm of retrolisthesis of T11 on T12, T12 on L1, and L1 on L2. Bone Marrow: Marrow is of normal overall signal. No acute vertebral body compression fractures. Mild reactive signal throughout the endplates of the lumbar and lower thoracic spine. Spinal Cord: Conus medullaris terminates at the L1 level. Visualized cord demonstrates normal signal and size. Paraspinous Soft Tissues: No paravertebral masses. T12-L1: Moderate disc height loss and desiccation. Mild diffuse disc bulge with small superimposed central protrusion. Mild facet and ligamentum flavum hypertrophy. Mild canal stenosis. Mild bilateral foraminal stenosis. No significant change. L1-L2: Moderate disc height loss and desiccation. Mild diffuse disc bulge. Mild facet and ligamentum flavum hypertrophy. Mild epidural lipomatosis. Mild canal stenosis. Mild left greater than right foraminal stenosis. No significant change. L2-L3: Moderate disc height loss and desiccation. Mild diffuse disc bulge with superimposed left paracentral and left far lateral protrusions. Previously seen small left paracentral disc extrusion is unchanged. Mild facet and ligamentum flavum hypertrophy. Mild epidural lipomatosis. There is increased, severe canal stenosis. Increased, moderate left foraminal stenosis. No change in mild right foraminal stenosis. L3-L4: Moderate disc height loss and desiccation. Moderate diffuse disc bulge. Mild facet and ligamentum flavum hypertrophy. Mild epidural lipomatosis. Severe canal stenosis. Increased, moderate to severe right foraminal stenosis with right L3 nerve root compression. No change in mild left foraminal stenosis. L4-L5: Moderate disc height loss and desiccation. Moderate diffuse disc bulge. Moderate facet and ligamentum flavum hypertrophy. Mild epidural lipomatosis. Severe canal stenosis. Moderate bilateral foraminal stenosis. No significant change. L5-S1: Moderate disc height loss and desiccation. Mild diffuse disc bulge. Moderate bilateral facet hypertrophy. No significant canal stenosis. Moderate bilateral foraminal stenosis. No significant change. IMPRESSION: 1. Multilevel degenerative disc and facet disease, as well as ligamentum flavum hypertrophy and epidural lipomatosis. 2. Multilevel canal stenoses, worst at L2-L3, L3-L4, and L4-L5, where there are severe canal stenoses. 3. Multilevel foraminal stenoses, worst at L3-L4 where there is associated intraforaminal nerve root compression. Recommend correlation with clinical symptoms to ascertain relevance of this finding. Dictated by: Sharon Butcher M.D. on 07/29/2022 at 14:12 Transcribed by: FREDO on 07/29/2022 at 14:17 Approved by: Sharon Butcher M.D. on 07/29/2022 at 16:22
== END ==
PROVIDERS: Family Provider Family Medicine; PCP Family Medicine; Referring Provider Physical Medicine & Rehabilitation; Visit Provider Physical Medicine & Rehabilitation
DX: M48.07 Spinal stenosis, lumbosacral region (principal); M48.061 Spinal stenosis, lumbar region without neurogenic claudication; M51.26 Other intervertebral disc displacement, lumbar region; M47.816 Spondylosis without myelopathy or radiculopathy, lumbar region; M47.817 Spondylosis without myelopathy or radiculopathy, lumbosacral region; M51.36 Other intervertebral disc degeneration, lumbar region; M51.37 Other intervertebral disc degeneration, lumbosacral region
CPT/HCPCS: 72148

== ENCOUNTER → 2022-11-11 14:01 | Outpatient (CLI) | payer MEDICARE, OTHER, SELFPAY ==
--- NOTE | 2022-11-11 14:03 | DI.RAD.S_ITS ---
PROCEDURE: XR KNEE LT 3V INDICATIONS: bilateral knee pain TECHNIQUE: 3 views of the knee were acquired. COMPARISON: [facility], CR, XR KNEE LT 3V, 10/15/2021, 11:48. FINDINGS: Bones: No acute fractures or dislocations. No suspicious bony lesions. Moderate joint space narrowing is seen at the medial femorotibial compartment with small marginal osteophytes and subchondral sclerosis. There is mild joint space narrowing at the lateral and anterior compartments. Soft tissues: No joint effusion. Mild chondrocalcinosis. IMPRESSION: 1. 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 2. Chondrocalcinosis. Differential diagnosis includes but is not limited to CPPD, hyperparathyroidism, and hemochromatosis. Approved by: Gerry Johnson M.D. on 11/11/2022 at 16:46
--- NOTE | 2022-11-11 14:03 | DI.RAD.S_ITS ---
PROCEDURE: XR KNEE RT 3V INDICATIONS: bilateral knee pain TECHNIQUE: Three views each of the right and left knee were acquired. COMPARISON: [facility], CR, XR KNEE LT 3V, 10/15/2021, 11:48. FINDINGS: Bones: No acute fractures or dislocations. No suspicious bony lesions. Moderate to severe joint space narrowing is seen at the right medial femorotibial compartment with subchondral sclerosis and marginal osteophyte formation. Mild narrowing of the right lateral compartment and moderate narrowing of the right anterior compartment. Mild tricompartmental joint space narrowing is seen in the left knee. Soft tissues: No joint effusion. No suspicious soft tissue calcifications. IMPRESSION: Bilateral tricompartmental osteoarthrosis is most notable and moderate to severe at the right medial femorotibial compartment. Approved by: Gerry Johnson M.D. on 11/11/2022 at 16:40
== END ==
PROVIDERS: Family Provider Family Medicine; PCP Family Medicine; Referring Provider Family Medicine; Visit Provider Family Medicine
DX: M17.0 Bilateral primary osteoarthritis of knee (principal); M25.561 Pain in right knee; M25.562 Pain in left knee
CPT/HCPCS: 73562

== ENCOUNTER → 2023-03-27 12:41 | Outpatient (CLI) | payer MEDICARE, OTHER, SELFPAY ==
[2023-03-27 13:14] LABS: Add Manual Diff / Slide Review NO; Basophils Absolute Auto 100 /uL (0-100); Eosinophils Absolute Auto 500 /uL (0-450); Eosinophils Percent Auto 5.6 % (2-4); Hematocrit 43.6 % (36-46); Hemoglobin 14.7 g/dL (12.0-16.0); Lymphocytes Absolute Auto 2700 /uL (1100-4500); Lymphocytes Percent Auto 30.3 % (25-40); Mean Corpuscular HGB Conc 33.8 % (30-36); Mean Corpuscular Hemoglobin 33.7 PG (26-34); Mean Corpuscular Volume 99.6 fL (80-100); Monocytes Absolute Auto 800 /uL (0-900); Monocytes Percent Auto 8.7 % (3-14); Neutrophils Absolute Auto 4800 /uL (1500-7000); Neutrophils Percent Auto 54.4 % (50-75); Platelet Count 231 X10^3/uL (150-400); Red Blood Cell Count 4.37 X10^6/uL (4.0-5.2); White Blood Cell Count 8.8 X10^3/uL (4.5-11.0)
[2023-03-27 13:25] LABS: Hemoglobin A1C% w Est Avg Glu 5.6 % (4.0-6.0)
[2023-03-27 13:38] LABS: Blood Urea Nitrogen 11 mg/dL (7-17); Carbon Dioxide 25 mmol/L (22-32); Chloride 106 mmol/L (98-107); Estimated Glomerular Filt Rate > 60 mL/min (>60); Glucose 118 mg/dL (80-110); HEMOLYSIS < 15 (0-50); Potassium 4.1 mmol/L (3.4-5.1); Sodium 138 mmol/L (137-145)
[2023-03-27 13:43] LABS: Prealbumin 19.4 mg/dL (17.6-36.0)
[2023-03-27 15:48] LABS: Vitamin D 25 Hydroxy (D3) < 12.8 ng/mL (30.0-100.0)
[2023-03-27 21:32] LABS: Erythrocyte Sedimentation Rate 40 MM/HR (0-20)
== END ==
PROVIDERS: Family Provider Family Medicine; PCP Family Medicine; Referring Provider Orthopaedic Surgery Adult Reconstructive Orthopaedic Surgery; Visit Provider Orthopaedic Surgery Adult Reconstructive Orthopaedic Surgery
DX: Z01.818 Encounter for other preprocedural examination (principal); E55.9 Vitamin D deficiency, unspecified; R73.9 Hyperglycemia, unspecified; R77.0 Abnormality of albumin; Z01.812 Encounter for preprocedural laboratory examination; R70.0 Elevated erythrocyte sedimentation rate; R79.89 Other specified abnormal findings of blood chemistry
CPT/HCPCS: 36415; 80048; 82040; 82306; 83036; 84134; 85025; 85651; 86140; 93005

== ENCOUNTER 2023-04-18 06:24 | Day surgery (SDC) | payer MEDICARE, OTHER, SELFPAY ==
[2023-04-09 12:46] VITALS: BMI 43.9
[2023-04-18] VITALS (11 sets, daily range): BP systolic 120–164; BP diastolic 62–91; PULSE 46–75; RESP 12–22; TEMP 36.1–37.1; O2SAT 92–97; BMI 43.9
--- NOTE | 2023-04-18 06:00 | DI.RAD.S_ITS ---
PROCEDURE: XR KNEE LT 1TO2V INDICATIONS: TKA LEFT TECHNIQUE: 2 view(s) of the knee acquired. COMPARISON: [facility], CR, XR KNEE ARTHRITIC SERIES BI, 02/26/2023, 13:44. [facility], CR, XR KNEE LT 3V, 11/11/2022, 14:02. [facility], CR, XR KNEE RT 3V, 10/15/2021, 11:48. FINDINGS: Bones: Patient is status post knee joint arthroplasty. Hardware components are in expected positions. Visualized bony structures are intact. Soft tissues: Overlying postoperative changes are noted. IMPRESSION: Expected post-operative appearance of a knee arthroplasty. Dictated by: Kirk Quiroz M.D. on 04/18/2023 at 10:49 Approved by: Kirk Quiroz M.D. on 04/18/2023 at 10:50
[2023-04-18] MEDS: LACTATED RINGERS 1,000 ML 42 ML IV (06:48)
[2023-04-18] MEDS: ACETAMINOPHEN 325 MG TABLET 975 MG PO (06:48)
[2023-04-18] MEDS: MELOXICAM 7.5 MG TABLET PO (06:49)
--- NOTE | 2023-04-18 07:31 | PM.PREOP ---
Pre-operative Note Interval Note History & Physical reviewed/Exam performed by Physician: Yes Changes to H&P: No
--- NOTE | 2023-04-18 07:46 | SUR.PREOP ---
Block start time [0746] . Monitoring initiated and maintained throughout procedure. Oxygen and medications given per anesthesiologist instructions. Patient remained stable throughout procedure, no adverse reactions noted. Block end time [0750].
[2023-04-18] MEDS: TRANEXAMIC ACID 1,000 MG VIAL 1000 MG INJ ×2 (08:20→09:45)
[2023-04-18] MEDS: CEFAZOLIN 2 GM/100 ML PREMIX 100 ML IV (08:20)
--- NOTE | 2023-04-18 08:31 | SUR.OPER ---
Supine on padded OR bed. Pillow under head, arms secured on padded armboards <90 degree abduction. Safety belt across torso. Non-operative leg secured with tape over blanket over lower leg. Operative leg secured in Jay positioner. Foam padded brace at thigh of operative leg.
[2023-04-18] MEDS: ROPIVACAINE/EPI/CLONIDINE/KET 50 ML SYRINGE INJ (08:49)
--- NOTE | 2023-04-18 10:36 | PM.OP.1 ---
Operative Date/Time/Diagnoses Date of procedure: 04/18/23 Pre-op diagnosis: Left knee arthritis Post-op diagnosis: same Procedure & Clinicians Procedure: Left total knee arthroplasty Same procedure as scheduled: Yes Surgeon: Jorge Patton Welt Rougher: Mariposa Fong Anesthesia Type: General, Peripheral nerve block and Local Operative Notes Findings: Grade 3 changes throughout medial compartment with grade 2 changes throughout lateral compartment and meniscal tearing in both compartments. Minimal degenerative changes in the patellofemoral joint Prosthetic devices, grafts, tissues, transplants, or devices: Rc persona size 6 narrow femoral component with size C tibia with 14 by 30 stem extension and 10 mm medial congruent polyethylene insert Procedure in detail: This 67-year-old female patient was evaluated for left knee pain in clinic. She had significant impairment in activities of daily living secondary to her knee pain which correlated to degenerative changes in her knee. Risks and benefits of operative versus nonoperative management were discussed with her at length. She wished to proceed with operative management. She had exhausted prior nonoperative treatment. She used a cane and a walker because of this left knee pain. She was noted to have depression on a preoperative screening protocol and was started on an antidepressant by her primary care provider. Her BMI in clinic was measured at 38. During our check in for surgery her BMI was measured at 44, different by 6 from what we had measured preoperatively. Based on this difference I elected to use an incisional wound VAC as this change in BMI from our preoperative calculation to our day of surgery calculation does elevate her risk for wound complications. She and her family were met in the preoperative holding area. All questions were answered. The operative site was marked. Informed consent was signed. She was brought back to the operating room and general anesthesia was induced. She was given a peripheral nerve block in the form of an adductor canal block by anesthesia under ultrasound guidance. She was transferred to the operating table and prepped and draped in the usual sterile fashion. A time-out procedure was performed. The assistance of a physician business assistant was required throughout the case for soft tissue retraction, positioning, wound closure, room set up. Without the assistance of a skilled practitioner the surgery would have taken significantly longer. The tourniquet was inflated and a medial parapatellar approach to the knee was utilized. Flaps were elevated and the arthrotomy was marked 2 guide closure at the conclusion of the procedure. A medial release was performed off of the tibial joint line. Soft tissue was released from behind the patellar tendon to clear the lateral side of the tibia. The knee was brought into flexion and an opening Reamer was used to open the canal. A intramedullary guide was introduced. A 5 degree resection had been planned based off of the preoperative imaging. She is only 5 ft tall but had a mechanical axis anatomic axis difference of 5?. A +0 cut was planned and intersected the trochlea appropriately. This was resected. The knee was hyperflexed and externally rotated to allow access to the cruciates. These were resected. Retractors were placed on the tibia and a opening Reamer was used to open up the tibial canal. A ayse was introduced down the diaphysis and intramedullary resection for a +4 cut was planned. This was performed and a spacer block with a 10 mm spacer block allowed the knee to come into full extension. A forced cage screw wood pile driver operator was used on the fusion tensioner and the knee was noted to be approximately 3? tighter medially. Returning to flexion, I performed a posterior medial release. After the posterior medial release I returned to extension and found that the knee was 1 degree tighter medially than laterally and opened to 10 mm with 60 lb of force. Coming to flexion I applied 60 lb of force to the tensioner and the tensioner externally rotated to 5?. I pinned this for a 10 mm gap with 60 lb of force and a 5 degree external rotation. I measured the femoral size and it measured to a size 6. I placed the size 6 4 in 1 block and checked the notch point with an Jair wing. It was not going to notch. I placed the fusion block on the 4 in 1 block and opened it was 60 lb of force. This opened to 10 mm and neutral tension across the medial and lateral gaps. Being satisfied with the position of my 4 in 1 block both in terms of gap symmetry and gap balance I performed the 4 in 1 cuts while protecting the soft tissues with soft tissue retractors. The four in 1 block was removed and I sized the tibia. It was a size C. This was pinned in place. I placed a size 6 trial and a 10 mm medial congruent polyethylene. The knee achieved full extension, had minimal opening with either medial or lateral stress, had good passive knee flexion which allowed the heel to rest on the patient's buttock, had good patellar tracking, and had minimal lift-off with external and internal rotation at 90? of flexion. Being satisfied with this trial I planned to move forward with cementation. The tibia and femur were irrigated and dried. The cement was placed down the canal and impacted into the cut tibial surface. The tibial component was covered in cement and placed in the canal as it was guided in by the keel punch. Cement was removed from around the tibial component and a 2nd round of impaction was performed with a 2nd round of cement removal. The knee was flexed and the tibia was subluxed behind the femur. Cement was placed on the femur and the femoral component was impacted into place. Excess cement was removed from around the femur. A 10 mm cruciate retaining polyethylene insert was used for trialing to allow for easier polyethylene insertion and removal. The cement was allowed to cure while the knee remained in full extension. The soft tissues were bathed in a dilute mixture of Betadine and peroxide. The cement was allowed to fully cure and the tourniquet was taken down. Hemostasis was achieved. The knee was again trialed and I elected to move forward with implantation of a 10 mm medial congruent polyethylene. The knee was inspected for excess cement and some was removed. The 10 mm polyethylene was inserted. A dilute mixture of ropivacaine epinephrine clonidine and Toradol was injected throughout the wound including the MCL, posterior capsule on the medial side only, VMO, periosteum medially, periosteum laterally, patellar tendon. The wound was closed using a combination of Vicryl Stratafix and Monocryl sutures. Dermabond was applied. A robert dressing was applied due to the patient's high BMI. The knee was wrapped in an Boyd wrap and ice was applied prior to the patient leaving operating room. The patient was taken to the PACU where she awoke without complication. She was examined in the PACU and had intact plantar flexion and dorsiflexion of her hallux and ankle as well as a palpable DP pulse. Post-operative Plan for aftercare: Weightbearing as tolerated Aspirin 81 twice per day We will send a prescription for cefadroxil twice per day for 7 days given high BMI Prescription have previously been sent including oxycodone for pain control Anticipate mobilization with physical therapy today and discharge home either later today or tomorrow morning Follow up in my clinic in 2 weeks
[2023-04-18] MEDS: IBUPROFEN 600 MG TABLET PO (11:33)
[2023-04-18] MEDS: ACETAMINOPHEN 325 MG TABLET 650 MG PO (11:34)
[2023-04-18] MEDS: LACTATED RINGERS 1,000 ML 100 ML IV (11:34)
[2023-04-18] MEDS: OXYCODONE IR 5 MG TABLET PO ×2 (11:34→16:18)
--- NOTE | 2023-04-18 12:20 | P.PCN_ITS ---
Peripheral Nerve Block Note Pre-Procedure Reason for block: Attending surgeon request/order for post-op pain management Pre-procedure checklist: Patient examined and chart reviewed, Risks, benefits, alternatives of block discussed, questions answered, Verification of anti- coagulation status, Site confirmed, Timeout performed and Standard ASA monitors applied Consent obtained from: Patient Procedure Date of procedure: 04/18/23 Start Time: 07:45 End Time: 07:50 Performed by: Viv Garcia Sedation - enter dose in comment field: IV Midazolam (mg) (2) and IV Fentanyl (mcg) (100) Location: Pre-Op (Left adductor canal nerve block, single shot) Position: Supine Laterality: Left Sterile Technique: Sterile barrier maintained, Sterile gloves, Mask, Sterile drapes and Chloraprep Equipment Single injection - Needle brand, gauge, length: PAJUNK- 21G x 100mm Medications Medications - enter concentration (%) & mL in comment field: Ropivacaine (0.5%, 20mls) Incremental aspiration prior to injection: Yes Ultrasound Reason for Ultrasound: U/S guidance used for needle placement and U/S used to visualize spread of anesthetic Image printed/saved/archived: Yes Limited exam reveals no abnormal findings: Yes Vital signs VS: - 04/18/23 06:36 04/18/23 07:00 04/18/23 07:02 Temperature 97.9 F Pulse Rate 61 Respiratory Rate 22 Blood Pressure 124/70 Pulse Oximetry 96 Oxygen Delivery Method Nasal Cannula Nasal Cannula Room Air Oxygen Flow Rate 04/18/23 07:54 04/18/23 10:20 04/18/23 10:25 Temperature 97.2 F L Pulse Rate 50 L 72 73 Respiratory Rate 16 15 12 Blood Pressure 120/79 151/79 H 164/62 H Pulse Oximetry 92 95 94 Oxygen Delivery Method Nasal Cannula Room Air Room Air Oxygen Flow Rate 3 04/18/23 10:30 04/18/23 10:45 04/18/23 10:50 Temperature 97 F L 98.8 F Pulse Rate 75 71 71 Respiratory Rate 12 12 14 Blood Pressure 150/81 H 150/81 H 148/70 H Pulse Oximetry 94 93 97 Oxygen Delivery Method Room Air Room Air Oxygen Flow Rate 2 04/18/23 10:50 04/18/23 11:20 Temperature 98.8 F 98.5 F Pulse Rate 71 75 Respiratory Rate 14 14 Blood Pressure 148/70 H 151/73 H Pulse Oximetry 97 96 Oxygen Delivery Method Oxygen Flow Rate 2 2 Oxygen Delivery Method Room Air Oxygen Flow Rate 2 Events Nerve Block Events: Procedure uneventful
--- NOTE | 2023-04-18 13:30 | PT.IIE ---
Current Diagnoses Unilateral primary osteoarthritis, left knee (04/18/23) Surgery Performed Operation Date: 04/18/23 07:45 Actual Procedures p Total Knee Arthroplasty(Left) - Jorge Patton MD Surgical History (Last Reviewed 04/18/23 @ 06:47 by Hannah Vaca, RN) Anesthesia History of History of surgery (10/29/18) Hx of Achilles tendon repair (~2004) Medical History (Last Reviewed 04/18/23 @ 06:48 by Hannah Vaca, RN) Ankle pain Asthma Carpal tunnel syndrome Chicken pox Chronic back pain Chronic cough Degenerative joint disease of knee Depression Diabetes insipidus Ectopic breast tissue Elevated liver enzymes Facet arthropathy, lumbar Heavy menstrual period Herniated nucleus pulposus, L4-5 History of COVID-19 (~09/2022) Hypertension Leg numbness Lumbar radiculopathy Lumbar spinal stenosis Lumbar spondylosis Measles Neuroforaminal stenosis of lumbar spine Osteoarthritis Painful menstrual periods Shoulder bursitis Vertigo Physical Therapy Inpatient Evaluation/Re-Eval M1 PT/OT-IP Prior Functional Status Start: 04/18/23 16:23 Freq: NEEDED Status: Discharge Protocol: Document 04/18/23 13:30 AB (Rec: 04/18/23 16:40 AB [email or web address]) Medical Review Prior Functional Status Medical History Reviewed Yes Communication able to make needs known Mobility and Gait pt stated that she was modified independent with all mobilities and ambulation using a SPC Social History Household Members spouse,children Living Arrangements House Number of Floors (Floors) Two Floors Number of Stairs To Enter/Railing? pt stays on the main level of the house pt has a ramp to enter the house Home Environment Standard Height Toilet,Walk in Shower,Ramp Home Equipment Four Wheel Walker,Straight Cane,Shower Seat without Backrest,Grab Bars In Shower Additional Social History Comment pt will have her spouse and daughter to assist her at home M2 PT-IP Current Condition Start: 04/18/23 16:23 Freq: NEEDED Status: Discharge Protocol: Document 04/18/23 13:30 AB (Rec: 04/18/23 16:40 AB [email or web address]) Physical Therapy Current Condition Current Condition Evaluation Date 04/18/23 Treatment Diagnosis s/p L TKA; difficulty in walking Onset Date 04/18/23 M3 PT-IP Subjective Start: 04/18/23 16:23 Freq: NEEDED Status: Discharge Protocol: Document 04/18/23 13:30 AB (Rec: 04/18/23 16:40 AB [email or web address]) Subjective Physical Therapy Visit Type Type Initial Evaluation Visit Start Time 13:30 Visit Stop Time 15:04 Total Visit Minutes 94 Number of SLEEPING CAR PORTER Visits 0 Physical Therapy Visit Comments Patient Comments agreeable to do PT Therapy Pain Assessment Pain When Pain Assessed At Rest Pain Present Pain Present Pain Reported Location L knee Intensity 3 Scale Used Numeric (0 - 10) Pain Management Techniques Apply Cold,Distraction, Modification of Treatment,Re- positioning,Timing of Activity with Medications M4 PT-IP Mobility and Gait Start: 04/18/23 16:23 Freq: NEEDED Status: Discharge Protocol: Document 04/18/23 13:30 AB (Rec: 04/18/23 16:40 AB [email or web address]) PT-Bed Mobility Assessment Supine to Sit Supine to Sit Standby Assistance Sit to Supine Sit to Supine Standby Assistance PT-Transfer Assessment Sit to and From Stand Sit to and from Stand Contact Guard Assistance,1 Person Assistance,Use of Upper Extremities Equipment Transfer Assistive Device Gait Belt,Front Wheeled Walker Orthotic/Prosthetic Devices or Brace: No Transfers Transfer Destination Chair Transfer Technique ambulated Transfer Ability Level of Assist Contact Guard Assistance, Minimal Assistance,1 Person Assistance,Use of Upper Extremities Comments Mobility Comments pt supine in bed. spouse and daughter in room. obtained home set up and PLOF. pt has a 4WW to use and does not have a FWW. informed pt that she might need a FWW. spouse stepped out to buy a FWW for pt. BP in supine: 133/74. O2 sat: 95% at RA. pt completed supine to sit SBA. able to sit on EOB SBA. c/o slight dizziness but dissipated after a few minutes of sitting. BP in sittin/68. pt completed sit to stand min A and cues. able to stand using FWW for support CGA. Pt found to have voided in bed. instructed pt to sit back on EOB. positioned bedside commode next to pt. completed sit to stand CGA and completed step transfer to bedside commode CGA to min A and cues for safety. pt completed sit to stand from the bedside commode CGA and was able to maintain standing CGA while NAC assisted with hygiene care and brief management. pt able to take steps to chair using FWW CGA ~ 2 ft. Caregiver training conducted. educated pt's daughter on use of safety belt and how to assist pt. daughter was able to put safety belt on and assisted pt with sit to stand. daughter was able to assist pt with ambulation in room using FWW CGA ~ 40 ft. pt sat back on the chair. positioned pt on the chair. put ice machine back on knee. call light and table placed within reach. spouse came back and stated that he has brought the FWW back to their house. educated spouse on how to set up and adjust FWW for pt. pt and family without further concerns. nurse informed regarding pt's mobility and d/c. Gait Assessment Gait Gait Assistance Required: Contact Guard Assist Distance (Feet) 40 Able to Maintain Weight Bearing Status Yes During Gait Assistive Devices Assistive Device Gait Belt,Front Wheeled Walker Orthotic/Prosthetic Devices or Brace: No Gait Deviations General Gait Pattern Antalgic,Decreased Stride Length,Decreased Feet Clearance Factors Limiting Gait Function Factors Limiting Gait Function Decreased Activity Tolerance, Decreased Strength,Difficulty Following Directions,Limited Range of Motion,Pain,Poor Balance PT-Balance Assessment Sitting Balance and Reactions Static Sitting Balance Ability Normal Dynamic Sitting Balance Ability Good Standing Balance and Reactions Static Standing Balance Ability Fair Dynamic Standing Balance Ability Fair Device Used FWW M5 PT-IP Objective Assessments Start: 04/18/23 16:23 Freq: NEEDED Status: Discharge Protocol: Document 04/18/23 13:30 AB (Rec: 04/18/23 16:40 AB [email or web address]) Orientation Orientation/Cognition Level of Alertness Alert Orientation Name,Place,Situation Language Function Ability No Deficits Noted Safety Awareness Decreased Safety Awareness Memory Description No Deficits Noted Gross Range of Motion Lower Extremity ROM Assessment Left Impaired Impairments L knee flexion: ~ 60 deg L knee extension: ~ 10 deg less to 0 Strength Lower Extremity Strength Assessment Left Impaired Hip 4-/5 Knee 3+/5 Muscle Tone Muscle Tone WNL Yes M6 PT-IP Treatment Start: 04/18/23 16:23 Freq: NEEDED Status: Discharge Protocol: Document 04/18/23 13:30 AB (Rec: 04/18/23 16:40 AB [email or web address]) Physical Therapy Treatment Education Education Provided Precautions,Weight Bearing Status,Post-Op Packet,Safety M7 PT-IP Assessment and Plan Start: 04/18/23 16:23 Freq: NEEDED Status: Discharge Protocol: Document 04/18/23 13:30 AB (Rec: 04/18/23 16:40 AB [email or web address]) PT Summary Assessment and Plan Potential Rehabilitation Potential Fair Status of Condition at Evaluation Evolving Summary Impairments Pain,ROM,Strength,Balance, Coordination,Sensation,Tone, Cognition,Bed Mobility, Transfers,Gait,Activity Tolerance Assessment Summary pt is a 67 y/o F s/p L TKA POD 0. pt requiring CGA with mobility using FWW. Caregiver training conducted and daughter was able to safely assist pt with mobility. pt has outpt PT set up. Pt plans to go home and family to assist. Goals Bed Mobility Goal Independent Transfer Goal Independent,Front Wheeled Walker Gait Goal Independent,Front Wheel Walker Gait Distance 300 Other Goals improve transfers and ambulation using LRAD >300 ft mod I Days to Meet Goals 5 Frequency of Treatment Frequency Of Treatment Twice a Day Treatment Plan Physical Therapy Treatment Plan Bed Mobility Training,Transfer Training,Gait Training, Therapeutic Exercise,Balance Retraining,Post Op Education, Discharge Planning,Hot or Cold Pack,Neuromuscular Re-ed, Coordination Retraining,Manual Therapy Weight Bearing Status Weight Bearing Status Weight Bear as Tolerated Allowed Weight Bearing Amount (enter % LLE WBAT or #) (%) Recommendations To Nursing Amount of Assist Needed 1 Person Assist Discharge Recommendations PT Discharge Recommendations Home with Assistance, Outpatient PT Transportation Needs at Discharge Private Vehicle
--- NOTE | 2023-04-18 14:04 | PM.PNPO.1 ---
Subjective Subjective Interval history: [facility] inpatient primary joints protocol: ? Above all else the entire care team needs to communicate a clear and consistent message to the patient that this surgery was performed in order to regain motion in their effected leg. Movement represents the best avenue towards early postoperative recovery.??The patient should be encouraged to move their operative limb, spend time in a chair instead of the bed, and ambulate as much as possible ?? As soon as the patient arrives from the PACU on the floor they should immediately change out of their hospital gown into their own clothing? ?? Physical therapy should be conducted as soon as feasibly possible.??If due to logistic reasons a physical therapist is unable to ambulate with the patient following surgery because they are unavailable or the patient arrives on the floor after the physical therapists have left for the day, a CORRESPONDENCE TRANSCRIBER or nursing staff should help the patient ambulate in the halls?on the night of surgery ? The IV should be locked unless it is being used to administer postoperative antibiotics to allow the patient to ambulate without their IV tower. If the patient is ready to ambulate during a time when IV fluids or IV antibiotics are being administered, they can be paused to allow ambulation as ambulation is the most important aspect of their postoperative recovery?? ? All patients undergoing a primary joint replacement will discharge home.??There is very strong evidence indicating that discharge to a shelter facility is an independent risk factor for numerous complications including periprosthetic joint infection.??Discharge to a shelter facility should not be discussed with patients undergoing a primary joint replacement.?? ? Opioids should be limited as much as possible. Many patients will be able to go through their entire postoperative recovery without ever requiring a single dose of opioids.??This includes in the PACU.??Patient should not receive any opioids unless they are complaining of significant pain.??Numerous multimodal strategies are utilized for every patient in order to control their pain.??This includes nerve blocks, injection of local anesthetic throughout the entire surgical site, acetaminophen, NSAIDs, and cryotherapy.?Oxycodone 5 mg is ordered on all patients not on chronic opioids prior to surgery.??No IV opioids are ordered.??If a patient fails to achieve adequate pain control following administration of 5 mg oxycodone, a second 5 mg administration can be utilized but should not be given unless it has been an hour since they had their first dosage. IV opioids are associated with much more severe nausea, constipation, alterations in mental status and respiratory depression and should be avoided.? ?? Cryotherapy is an essential component of pain control.??The small ice bags provided by the hospital do not get the surgical site cold enough to actually provide any analgesic effect.??Patients can either utilize a cryotherapy device which provides continuous cold fluid to the surgical site or a patient-belongings bag can be filled with ice and placed directly on the surgical site.??Solidifier powder can be placed inside of this patient belongings bag to limit the amount of moisture which accumulates around it, however if this is not available then wet sheets are preferable to administering excessive opioids? - Patients should be rapidly mobilized the day of surgery with the intention of discharging home without staying overnight. Not all patients will be able to return home the same day as their procedure, however this is the goal for all patients undergoing a primary joint replacement Exam Vital Signs (past 8 hours): - 04/18/23 06:36 04/18/23 07:00 04/18/23 07:02 Temperature 97.9 F Pulse Rate 61 Respiratory Rate 22 Blood Pressure 124/70 Pulse Oximetry 96 Oxygen Delivery Method Nasal Cannula Nasal Cannula Room Air Oxygen Flow Rate 04/18/23 07:54 04/18/23 10:20 04/18/23 10:25 Temperature 97.2 F L Pulse Rate 50 L 72 73 Respiratory Rate 16 15 12 Blood Pressure 120/79 151/79 H 164/62 H Pulse Oximetry 92 95 94 Oxygen Delivery Method Nasal Cannula Room Air Room Air Oxygen Flow Rate 3 04/18/23 10:30 04/18/23 10:45 04/18/23 10:50 Temperature 97 F L 98.8 F Pulse Rate 75 71 71 Respiratory Rate 12 12 14 Blood Pressure 150/81 H 150/81 H 148/70 H Pulse Oximetry 94 93 97 Oxygen Delivery Method Room Air Room Air Oxygen Flow Rate 2 04/18/23 10:50 04/18/23 11:20 04/18/23 11:50 Temperature 98.8 F 98.5 F 97.8 F Pulse Rate 71 75 46 L Respiratory Rate 14 14 16 Blood Pressure 148/70 H 151/73 H 148/75 H Pulse Oximetry 97 96 93 Oxygen Delivery Method Oxygen Flow Rate 2 2 2 04/18/23 12:20 04/18/23 13:20 Temperature 97.8 F 97.8 F Pulse Rate 75 74 Respiratory Rate 16 16 Blood Pressure 156/91 H 136/75 Pulse Oximetry 94 Oxygen Delivery Method Oxygen Flow Rate 0 Oxygen Delivery Method Room Air Oxygen Flow Rate 0 PFSH Medical History History of COVID-19 (~09/2022) Osteoarthritis Facet arthropathy, lumbar Herniated nucleus pulposus, L4-5 Degenerative joint disease of knee Lumbar radiculopathy Lumbar spinal stenosis Elevated liver enzymes Neuroforaminal stenosis of lumbar spine Lumbar spondylosis Leg numbness Chronic cough Asthma Shoulder bursitis Chronic back pain Carpal tunnel syndrome Ankle pain Measles Chicken pox Vertigo Painful menstrual periods Heavy menstrual period Diabetes insipidus Hypertension Ectopic breast tissue Depression Surgical History History of surgery (10/29/18) Anesthesia Hx of Achilles tendon repair (~2004) History of Family History Father Gallstones Diabetes mellitus Mother Diabetes mellitus Hyperlipidemia Hypertension Mental health problem Sister Diabetes mellitus Heart disease Mental health problem Grandfather Heart disease Grandmother Heart disease Brother Heart disease Diabetes mellitus Hyperlipidemia Hypertension Family/Other Colorectal cancer Brother Cirrhosis Social History marital status: household members: spouse and children occupational status: previously employed Smoking Status: Never smoker alcohol intake: current substance use type: does not use Assessment & Plan Post-op Postoperative Procedures: Procedures Operation Date: 04/18/23 07:45 Actual Procedure Side Surgeon p Total Knee Arthroplasty Left Jorge Patton MD Quality VTE Deep Vein Thrombosis/Pulmonary Embolism Present on Admission: No
--- NOTE | 2023-05-02 10:24 | P.OP_ITS ---
Operative Date/Time/Diagnoses Date of procedure: 05/02/23 Pre-op diagnosis: Left knee arthritis Post-op diagnosis: same Procedure & Clinicians Procedure: Left total knee arthroplasty (CPT 68815) Same procedure as scheduled: Yes Surgeon: Jorge Patton Gas Controller: Mariposa Fong Anesthesia Type: Spinal, Peripheral nerve block and Local Operative Notes Prosthetic devices, grafts, tissues, transplants, or devices: Implants: Rc Persona [Medial Congruent] Total Knee Arthroplasty: - Size 6 narrow Cruciate Retaining Femoral Component - Size D Tibial Component with 14 mm x 30 mm stem extension - Size 14 [Medial Congruent] Polyethylene Insert - 32 mm Patella This patient was evaluated for knee pain which caused significant impairment in activities of daily living and correlated to degenerative changes in the knee. These symptoms were refractory to extensive attempts at nonoperative management. Risks and benefits of operative versus nonoperative management were discussed at length and the patient wished to proceed with operative management. The patient was met in the preoperative holding area. All questions were answered. The operative site was marked. Informed consent was signed. The patient was brought back to the operating room and anesthesia was induced. After being transferred to the operating table, the operative extremity was prepped and draped in the usual sterile fashion. A time-out procedure was performed. The assistance of a physician life enrichment assistant was required throughout the case for soft tissue retraction, positioning, wound closure, room set up. Without the assistance of a skilled practitioner the surgery would have taken significantly longer. The tourniquet was inflated and a medial parapatellar approach to the knee was utilized. Flaps were elevated and the arthrotomy was marked to guide closure at the conclusion of the procedure. A medial release was performed off of the tibial joint line. Soft tissue was released from behind the patellar tendon to clear the lateral side of the tibia. The knee was brought into flexion and an opening reamer was used to open the canal. An intramedullary guide was introduced. A 5 degree resection with a +1 cut had been planned based off of the preoperative imaging and assessment of the patient's preoperative passive knee extension. This was resected. The knee was hyperflexed and externally rotated to allow access to the cruciates. These were resected. Retractors were placed on the medial, posterior and lateral tibia and additional resection at the base of the PCL was used to allow the tibia to sublux anteriorly providing access to the tibia. A opening reamer was used to open up the tibial canal beginning at the ACL insertion. An intramedullary ayse was introduced down the diaphysis and a +4 cut was planned off of the medial side of the tibia. This was performed and the knee was brought back to full extension. A 12 mm spacer block allowed the knee to come into full extension. A force gauge screw route sales delivery drivers supervisor was used on the fusion tensioner and the knee was noted to be well balanced without any soft tissue releases. The knee was brought into flexion and the force gauge screwdriver was used to apply 30 pounds of force which balanced the rotation at 3 degrees. I pinned this in the 12 mm hole and sized using a measured resection sizer. After placing the corresponding 4-in-1 block I again checked the balance of the knee at 90 degrees of flexion with the Jyoti quintana nsioner and found it to be satisfactory. I checked the notch point with an paulo wing. Being satisfied with the position of my 4 in 1 block both in terms of gap symmetry and gap balance I performed the 4 in 1 cuts while protecting the soft tissues with soft tissue retractors. The four in 1 block was removed and corresponding trials were placed including a floating tibia. The knee achieved full extension, had minimal opening with either medial or lateral stress, had good passive knee flexion which allowed the heel to rest on the patient's buttock, had good patellar tracking, and had minimal lift-off with external and internal rotation at 90? of flexion. Being satisfied with this trial I planned to move forward with cementation. The tibia and femur were irrigated and dried. Portions of chamfer cuts were used as cement restrictors in the femur and tibia. The tibia was sized and prepped while cement was mixed. The cement was placed down the canal and pressurized into the cut tibial surface. The tibial component was covered in cement and placed in the canal as it was guided in by the keel punch. Cement was removed from around the tibial component and a second round of impaction was performed with a second round of cement removal. The knee was flexed and the tibia was reduced underneath the femur. Cement was placed on the femur and the femoral component was impacted into place. Excess cement was removed from around the femur. A trial insert was used for the cement curing process. The cement was allowed to cure while the knee remained in full extension with pressure on the heel. A 32 mm patellar insert was cemented in place. The soft tissues were bathed in a dilute mixture of Betadine and peroxide. The cement was allowed to fully cure and the polyethylene trial was removed. The posterior knee was inspected for excess cement and some was removed. The knee was again trialed and I elected to move forward with implantation of a 14 mm medial congruent polyethylene. The correspond polyethylene implant was inserted. The tourniquet was taken down. Hemostasis was achieved. A dilute mixture of ropivacaine epinephrine clonidine and ketorolac was injected throughout the wound including the MCL, posterior capsule on the medial side only, VMO, medial femoral periosteum, lateral femoral periosteum, patellar tendon and adductor canal to provide a low adductor canal block. The wound was closed using a combination of Vicryl Stratafix and Monocryl sutures. Dermabond was applied. A soft dressing was applied. The knee was wrapped in an Boyd wrap and ice was applied prior to the patient leaving operating room. The patient was transferred off of the operating table and taken to the PACU. Plan for aftercare: - Transfer to floor following recovery in PACU - Transition from hospital gown to regular clothing immediately upon arrival on floor - Weightbearing as tolerated - Mobilization as soon as the patient has recovered from anesthesia - [Aspirin 81 twice per day] for DVT prophylaxis - Multimodal pain regimen with no IV opioids ordered - Anticipate mobilization with physical therapy today and discharge home either later today or tomorrow morning - Follow up at [facility] in 2 weeks
== END 2023-04-18 16:25 | disposition home or self-care (01) ==
LOC: OR 06:26 → AC 06:27
PROVIDERS: Family Provider Family Medicine; PCP Family Medicine; Referring Provider Orthopaedic Surgery Adult Reconstructive Orthopaedic Surgery; Visit Provider Orthopaedic Surgery Adult Reconstructive Orthopaedic Surgery
PROC: 0SRD0JZ Replacement of Left Knee Joint with Synthetic Substitute, Open Approach (ICD-10-PCS; CPT 27447; principal; 2023-04-18 07:45)
DX: M17.12 Unilateral primary osteoarthritis, left knee (principal); G89.18 Other acute postprocedural pain
CPT/HCPCS: 27447; 64450; 73560; 97161; 97530; C1776; J0690; J1170; J2250; J2704; J3010

== ENCOUNTER 2023-10-24 13:45 | Outpatient (RCR) | payer MEDICARE, OTHER, SELFPAY ==
[2023-04-18 11:41] VITALS: BMI 43.9
--- NOTE | 2023-04-28 12:56 | PT.OIE ---
Current Diagnoses Unilateral primary osteoarthritis, left knee (04/28/23) Past Medical History (Last Reviewed 04/18/23 @ 06:48 by Hannah Vaca, RN) Ankle pain Asthma Carpal tunnel syndrome Chicken pox Chronic back pain Chronic cough Degenerative joint disease of knee Depression Diabetes insipidus Ectopic breast tissue Elevated liver enzymes Facet arthropathy, lumbar Heavy menstrual period Herniated nucleus pulposus, L4-5 History of COVID-19 (~09/2022) Hypertension Leg numbness Lumbar radiculopathy Lumbar spinal stenosis Lumbar spondylosis Measles Neuroforaminal stenosis of lumbar spine Osteoarthritis Painful menstrual periods Shoulder bursitis Vertigo Past Surgical History (Last Reviewed 04/18/23 @ 06:47 by Hannah Vaca, RN) Anesthesia History of History of surgery (10/29/18) Hx of Achilles tendon repair (~2004) Visit Care Team Role Provider Type Fletcher Menezes MD Family Provider Physician Primary Care Provider Specialty: Family Practice Address: [address] [place] [address], [facility] Email: [email or web address] Jorge Patton MD Attending Provider Physician Referring Provider Specialty: Orthopedics Orthopedic Surgery Address: [address] [place] [address], [id number] Email: [email or web address] Physical Therapy Initial Evaluation PT-OP-A Visit Information Start: 04/28/23 10:41 Freq: Status: Active Protocol: Document 04/28/23 10:42 NM (Rec: 04/28/23 11:40 NM [id number]) Out-Patient Physical Therapy Visit Information Visit Information Visit Type Initial Evaluation Visit Start Time 10:35 Visit Stop Time 11:20 Total Visit Minutes 45 Visit Number 1 Evaluation Information Evaluation Date 04/28/23 Precautions Precautions Post-op 04/18/23 (TKA) Fall risk PT-OP-B Current Condition Start: 04/28/23 10:41 Freq: Status: Active Protocol: Document 04/28/23 10:42 NM (Rec: 04/28/23 11:40 NM [id number]) Current Condition History of Current Condition Onset Date 04/18/23 Current Complaints pain, swelling, sleep History of Current Condition Pt presents to clinic with FWW s/p L TKA on 04/19. She is seeing Dr. Patton for her knee. Currently, pt still has her post-op dressings still on and is WBAT with a FWW. Pt has B knee OA, which led to the replacement. She had no pre-op PT. Prior to surgery, she was able to ambulate up to 1/4 mi due to pain, which is a decrease from her baseline which was 1 mi. She is planning on having the R knee replaced in a few months. Pt has steps leading up to her home which is covered by a ramp. She used a FWW for gait prior to surgery due to feeling like she had poor balance; she also has a spc that she uses occasional (not since surgery). Pt reports compliance with HEP from hospital, performing exercises 1-2x/day. She does report some tingling in her LLE down to her foot, but this was occuring prior to her TKA. Her main compliants are pain, weakness, swelling, stiffness, and poor sleep since her surgery. Future Testing and Treatments Planned Follow up 04/[address] Patton Treatment Goals Patient/Caregiver Goals Decrease pain, improve knee motion and strength, be able to sleep without discomfort Prior Functional Status Baseline Function- ADL's Independent Baseline Function- Mobility Independent Baseline Function- Gait FWW or spc for balance; up to 1/4 mi for gait distance Baseline Function- Recreation/Hobbies Gardening (hands and knees) Baseline Function- Other Stairs (no issue) Current Functional Impairments (Reported) Functional Limitations- Mobility/Gait No stairs due to limited motion and pain, no more than household ambulation Functional Limitations- Recreation/ Unable to garden Hobbies PT-OP-C Subjective Start: 04/28/23 10:41 Freq: Status: Active Protocol: Document 04/28/23 10:42 NM (Rec: 04/28/23 11:40 NM [id number]) Patient Questionnaires Lower Extremity Functional Scale LEFS Score 10/80 LEFS Impairment 80 to 99% Impaired (Score 1-16 ) OP-PT Pain Assessment Pain Assessment Grid Paper Pain Assessment Grid Completed Yes Location L knee Pain Location Details medial and lateral knee pain Intensity 6 Scale Used Numeric (0 - 10) Description Sharp Frequency Constant Radiating Location none Pain Aggravating Factors Position,Changing Position, Activity,Standing,Sitting, Walking Pain Alleviating Factors Cold,Elevation Other Pain Alleviating Factors best 4-10/02 Home Pain Medication Use Pain Medications Used Yes: Tylenol Pain Behaviors Pain Behaviors Facial Grimacing,Guarding, Holding Area PT-OP-D Balance Start: 04/28/23 10:41 Freq: Status: Active Protocol: Document 04/28/23 10:42 NM (Rec: 04/28/23 11:56 NM [id number]) OP-PT Balance Assessment Sitting Balance Static Sitting Balance Ability Normal Dynamic Sitting Balance Ability Normal Standing Balance Static Standing Balance Ability Good Dynamic Standing Balance Ability Fair Device Used FWW Standing Balance Comments Occasional CGA to steady during gait, changing JUVENCIO Denise Fall Scale Copyright Permission PT-OP-E Functional Tests Start: 04/28/23 10:41 Freq: Status: Active Protocol: Document 04/28/23 10:42 NM (Rec: 04/28/23 11:40 NM [id number]) Functional Tests Timed Up and Go (TUG) Score 41.5 sec Comments FWW, SBA PT-OP-F Manual Assessment Start: 04/28/23 10:41 Freq: Status: Active Protocol: Document 04/28/23 10:42 NM (Rec: 04/28/23 11:40 NM [id number]) Manual Assessments Soft Tissue Assessment Soft Tissue Mobility Assessment Soft tissue restrictions of L hamstring. Edema in L ankle, knee and calf. Will need scar mobilization to prevent adhesions once scar is closed and healed. Joint Mobility Assessment Joint Mobility Assessment Empty end feel with PROM, limited mobility PT-OP-G Mobility & Gait Start: 04/28/23 10:41 Freq: Status: Active Protocol: Document 04/28/23 10:42 NM (Rec: 04/28/23 11:40 NM [id number]) OP Gait Assessment Gait Gait Assistance Required: Standby Assistance Distance (Feet) 200 Able to Maintain Weight Bearing Status Yes During Gait Assistive Devices Assistive Device Gait Belt,Straight Cane,Front Wheeled Walker Gait Deviations General Gait Pattern Antalgic,Decreased Stride Length,Step-to Gait Factors Limiting Gait Function Factors Limiting Gait Function Decreased Activity Tolerance, Decreased Strength,Limited Range of Motion,Pain,Poor Balance Comments Gait Comments Primarily uses FWW for gait. Began using FWW for gait prior in Jun 2022 prior to surgery due to poor balance. PT-OP-H Neuro Start: 04/28/23 10:41 Freq: Status: Active Protocol: Document 04/28/23 10:42 NM (Rec: 04/28/23 11:40 NM [id number]) Sensation Evaluation Gross Sensation Gross Sensation WNL Comments Summary Comments LLE intact to light touch sensation in all dermatomes. PT-OP-J Posture/Palpation/Skin Start: 04/28/23 10:41 Freq: Status: Active Protocol: Document 04/28/23 10:42 NM (Rec: 04/28/23 11:40 NM [id number]) Posture Evaluation Position Standing Evaluation View Posterior Pelvis Posture Anteriorly Tilted Weight Distribution Weight Shifted Right,Decreased Wt.Bear on (L) Hip Posture (L) Externally Rotated Knee Posture (L) Genu Valgus,(R) Genu Valgus Patellar Posture (R) Superior Palpation Assessment Location L knee Palpation Location posterior knee, posterior calf , lateral and medial knee Palpation Findings Edema,Soft Tissue Tightness, Tenderness Palpation Details Tenderness and edema along posterior knee and calf. No sign of DVT Tenderness and edema along medial and lateral knee near patella, femoral condyles near joint line Skin Assessment Edema Assessment L ankle Edema Type Non-Pitting Edema Degree 2+ Edema Appearance Discolored,Puffy Circumference Measurement L knee Location 5 cm above patella (60cm), sub patella (51 cm), 10 cm below patella (49 cm) Comments L malleoli (27 cm) with excess on lateral side, at patella ( 56.5 cm) Incisional Assessment Incision Appearance/Comments Bandage is CDI. Still wrapped so could not formally assess incision. No signs of infection around bandage. Will assess further once bandage removed PT-OP-K Range of Motion Start: 04/28/23 10:41 Freq: Status: Active Protocol: Document 04/28/23 10:42 NM (Rec: 04/28/23 11:40 NM [id number]) Knee Goniometric Range of Motion Knee Right Knee ROM WFL No Patient Position Supine Flexion Active (degrees) 120 Flexion Passive (degrees) 125 Extension Active (degrees) 0 Left Knee ROM WFL No Patient Position Supine Flexion Active (degrees) 80 Flexion Passive (degrees) 80 Extension Active (degrees) 10 Comments lacking 10 deg of extension. Pain with knee flex and extension PT-OP-M Strength Start: 04/28/23 10:41 Freq: Status: Active Protocol: Document 04/28/23 10:42 NM (Rec: 04/28/23 11:40 NM [id number]) Hip Strength Hip Manual Muscle Testing Right Flexion (L2) 4- Good- Abduction 4- Good- Adduction 4- Good- External Rotation 3+ Fair+ Internal Rotation 3+ Fair+ Left Flexion (L2) 3+ Fair+ Abduction 3+ Fair+ External Rotation 3+ Fair+ Internal Rotation 3+ Fair+ Comments Assessed in sitting due to knee pain Knee Strength Knee Manual Muscle Testing Right Flexion (S2) 4 Good Extension (L3) 4+ Good+ Left Flexion (S2) 3 Fair Extension (L3) 3 Fair Comments No resistance with MMT due to pain with AROM against gravity . PT-OP-Q Treatments Start: 04/28/23 10:41 Freq: Status: Active Protocol: Document 04/28/23 10:42 NM (Rec: 04/28/23 11:40 NM [id number]) Therapeutic Exercises Supine Exercises Heel slides Side left Reps/Minutes x10 Comments cues for knee flex up to pain free range, 2-5 hold at knee flex ROM Sitting Exercises Knee ext selg-mobilization Sitting Exercise Name heel propped on ground with knee ext as much as possible Side left Equipment Used hand for mobilization at quad Reps/Minutes 5x5-10 as tolerated PT-OP-T Assessment and Plan Start: 04/28/23 10:41 Freq: Status: Active Protocol: Document 04/28/23 10:42 NM (Rec: 04/28/23 11:40 NM [id number]) Physical Therapy Assessment Rehab Potential Rehabilitation Potential Good Evaluation Complexity Number of Personal Factors/Comorbidities 1-2 Number of Body Systems Impaired 1-2 Clinical Presentation at Evaluation Stable Impairments Impairments Activity Tolerance,Balance, Edema,Functional Activities, Functional Mobility,Gait, Integument,Pain,Posture,ROM, Soft Tissue Mobility,Strength, Transfers Goals Seven Impairment gait Impairment Unable to complete 6 MWT at IE Short Term Goal (STG) Pt will be able to complete a 6 MWT using LRAD in order to demo improved gait mechanics and activity tolerance for community ambulation. STG Duration 6 weeks Engineering Technical Writer Goal (LTG) Pt will improve 6 MWT distance by at least 100 ft using LRAD in order to demo improved gait mechanics and activity tolerance for community ambulation. LTG Duration 12 weeks Six Impairment function Impairment LEFS 10/80 Short Term Goal (STG) Pt will improve LEFS score by at least 9 points (MCID) in order to demo improved activity tolerance and strength. STG Duration 6 weeks Engineering Technical Writer Goal (LTG) Pt will improve LEFS score by at least 18 points (2 MCID) in order to demo improved activity tolerance and strength. LTG Duration 12 weeks Five Impairment Balance, function Impairment TUG 41.5 sec wiht FWW Short Term Goal (STG) Pt will decrease TUG score time to at least 30 seconds or less using LRAD in order to demo improved balance during gait and transfers, to decrease fall risk. STG Duration 6 weeks Engineering Technical Writer Goal (LTG) Pt will decrease TUG score time to at least 15 seconds or less using LRAD in order to demo improved balance during gait and transfers, to decrease fall risk. LTG Duration 12 weeks Four Impairment strength Impairment Knee flex 3/5 Short Term Goal (STG) Pt will improve L knee flex strength to at least 4-/5 in order to perform stairs and for propulsion during gait. STG Duration 6 weeks Correction Goal (LTG) Pt will improve L knee flex strength to at least 4+/5 in order to perform stairs and for propulsion during gat. LTG Duration 12 weeks Three Impairment Strength Impairment Knee ext 3/5 Short Term Goal (STG) Pt will improve L knee ext strength to at least 4-/5 in order to demo improved quad control for stability and TKE for gait. STG Duration 6 weeks Correction Goal (LTG) Pt will improve L knee ext strength to at least 4+/5 in order to demo improved quad control for stability and TKE for gait. LTG Duration 12 weeks Two Impairment ROM Impairment Knee ext 10 deg AROM (lacking) Short Term Goal (STG) Pt will improve L knee ext to at least 5 deg AROM in order to reach terminal knee extension during gait and improve knee stability during stairs/gait. STG Duration 6 weeks Engineering Technical Writer Goal (LTG) Pt will improve L knee ext to at least 0 deg in order to reach terminal knee extension during gait and improve knee stabiltiy during stairs/gait. LTG Duration 12 weeks One Impairment ROM Impairment Knee flex 80 deg AROM Short Term Goal (STG) Pt will improve L knee flex to at least 100 deg AROM in order to demo improved knee flex ROM for stairs and gait. STG Duration 6 weeks Correction Goal (LTG) Pt will improve L knee flex to at least 115 deg AROM in order to demo improved knee flex ROM for stairs, gait, and to be comparable to RLE. LTG Duration 12 weeks Assessment Summary Assessment Pt is a 67 y.o. female presenting to clinic s/p L TKA . Surgery date 04/18/23. She is using a FWW and is WBAT. Pt has impairments in L knee ROM and strength. Her knee flexion AROM is most limited at 80 deg; she also has 10 deg of extension. She able to perform active knee flex and extension against gravity, but not against any resistance secondary to pain. Pt demos fair, palpable quad contraction. Her gait is antalgic with decrease L step length and L weight bearing; she also demos decreased quad- adverse gait with poor TKE and decreased knee stability. She is unable to ambulate greater than community distances (200 ft) at this time. Her TUG score is 41.5 sec with a FWW, which indicates decreased balance and a fall risk at this time. She is primarily limited by pain, especially during activity and when trying to sleep. Pt also demos no signs of infection; however, she has extensive edema in the LLE form her calf up to her knee. Pt issued HEP with heel slides and a seated knee ext mobilization to assist with gentle ROM. PT and pt discussed compression socks, ice, and elevation to help decrease knee swelling; PT and pt also discussed POC, tmt, and HEP. Pt would benefit from skilled PT in order to improve L knee ROM and strength, balance, gait mechanics, and endurance in order to return to PLOF, improve safety, decrease fall risk, and to increase activity tolerance. Physical Therapy Plan Frequency and Duration Frequency of Treatment 2x/Week Duration of treatment (weeks) 12 Plan of Care Start Date 04/28/23 Plan of Care End Date 07/21/23 Therapeutic Interventions Therapeutic Interventions Aquatic Therapy,Balance Training,Gait Training,Home Exercise Program,Joint Mobilizations,Manual Therapy, Neuromuscular Re-education, Patient/Caregiver Education, Self-Care/Home Management,Soft Tissue Mobilization,Taping, Therapeutic Activities, Therapeutic Exercises Modalities Cold Pack/Ice Massage,Electric Stimulation,Hot Packs, Iontophoresis,Ultrasound, Vasopneumatic Devices Next Visit Focus/Plan Next Note Type Treatment Note Next Visit Plan Gentle ROM, swelling management, quad control. Short gait distances
--- NOTE | 2023-05-01 11:44 | PT.OTN ---
Current Diagnoses Unilateral primary osteoarthritis, left knee (05/01/23) Physical Therapy Treatment Note PT-OP-A Visit Information Start: 04/28/23 10:41 Freq: Status: Active Protocol: Document 05/01/23 10:40 NM (Rec: 05/01/23 11:44 NM [id number]) Out-Patient Physical Therapy Visit Information Visit Information Visit Type Treatment Note Visit Start Time 10:30 Visit Stop Time 11:15 Total Visit Minutes 45 Visit Number 2 Evaluation Information Evaluation Date 04/28/23 PT-OP-B Current Condition Start: 04/28/23 10:41 Freq: Status: Active Protocol: Document 04/28/23 10:42 NM (Rec: 04/28/23 11:40 NM [id number]) Current Condition History of Current Condition Onset Date 04/18/23 Current Complaints pain, swelling, sleep History of Current Condition Pt presents to clinic with FWW s/p L TKA on 04/19. She is seeing Dr. Patton for her knee. Currently, pt still has her post-op dressings still on and is WBAT with a FWW. Pt has B knee OA, which led to the replacement. She had no pre-op PT. Prior to surgery, she was able to ambulate up to 1/4 mi due to pain, which is a decrease from her baseline which was 1 mi. She is planning on having the R knee replaced in a few months. Pt has steps leading up to her home which is covered by a ramp. She used a FWW for gait prior to surgery due to feeling like she had poor balance; she also has a spc that she uses occasional (not since surgery). Pt reports compliance with HEP from hospital, performing exercises 1-2x/day. She does report some tingling in her LLE down to her foot, but this was occuring prior to her TKA. Her main compliants are pain, weakness, swelling, stiffness, and poor sleep since her surgery. Future Testing and Treatments Planned Follow up 04/[address] Patton Treatment Goals Patient/Caregiver Goals Decrease pain, improve knee motion and strength, be able to sleep without discomfort Prior Functional Status Baseline Function- ADL's Independent Baseline Function- Mobility Independent Baseline Function- Gait FWW or spc for balance; up to 1/4 mi for gait distance Baseline Function- Recreation/Hobbies Gardening (hands and knees) Baseline Function- Other Stairs (no issue) Current Functional Impairments (Reported) Functional Limitations- Mobility/Gait No stairs due to limited motion and pain, no more than household ambulation Functional Limitations- Recreation/ Unable to garden Hobbies PT-OP-C Subjective Start: 04/28/23 10:41 Freq: Status: Active Protocol: Document 05/01/23 10:40 NM (Rec: 05/01/23 11:44 NM [id number]) OP-PT Subjective Patient Comments Patient Comments Pt reports 6/10 pain today in her L knee. She saw her surgeon yesterday who removed her dressings and she states he is pleased with progress so far. She has a follow up in 4 weeks. Pt reports compliance with HEP. PT-OP-D Balance Start: 04/28/23 10:41 Freq: Status: Active Protocol: Document 04/28/23 10:42 NM (Rec: 04/28/23 11:56 NM [id number]) OP-PT Balance Assessment Sitting Balance Static Sitting Balance Ability Normal Dynamic Sitting Balance Ability Normal Standing Balance Static Standing Balance Ability Good Dynamic Standing Balance Ability Fair Device Used FWW Standing Balance Comments Occasional CGA to steady during gait, changing JUVENCIO Denise Fall Scale Copyright Permission PT-OP-E Functional Tests Start: 04/28/23 10:41 Freq: Status: Active Protocol: Document 04/28/23 10:42 NM (Rec: 04/28/23 11:40 NM [id number]) Functional Tests Timed Up and Go (TUG) Score 41.5 sec Comments FWW, SBA PT-OP-F Manual Assessment Start: 04/28/23 10:41 Freq: Status: Active Protocol: Document 04/28/23 10:42 NM (Rec: 04/28/23 11:40 NM [id number]) Manual Assessments Soft Tissue Assessment Soft Tissue Mobility Assessment Soft tissue restrictions of L hamstring. Edema in L ankle, knee and calf. Will need scar mobilization to prevent adhesions once scar is closed and healed. Joint Mobility Assessment Joint Mobility Assessment Empty end feel with PROM, limited mobility PT-OP-G Mobility & Gait Start: 04/28/23 10:41 Freq: Status: Active Protocol: Document 04/28/23 10:42 NM (Rec: 04/28/23 11:40 NM [id number]) OP Gait Assessment Gait Gait Assistance Required: Standby Assistance Distance (Feet) 200 Able to Maintain Weight Bearing Status Yes During Gait Assistive Devices Assistive Device Gait Belt,Straight Cane,Front Wheeled Walker Gait Deviations General Gait Pattern Antalgic,Decreased Stride Length,Step-to Gait Factors Limiting Gait Function Factors Limiting Gait Function Decreased Activity Tolerance, Decreased Strength,Limited Range of Motion,Pain,Poor Balance Comments Gait Comments Primarily uses FWW for gait. Began using FWW for gait prior in Jun 2022 prior to surgery due to poor balance. PT-OP-H Neuro Start: 04/28/23 10:41 Freq: Status: Active Protocol: Document 04/28/23 10:42 NM (Rec: 04/28/23 11:40 NM [id number]) Sensation Evaluation Gross Sensation Gross Sensation WNL Comments Summary Comments LLE intact to light touch sensation in all dermatomes. PT-OP-J Posture/Palpation/Skin Start: 04/28/23 10:41 Freq: Status: Active Protocol: Document 04/28/23 10:42 NM (Rec: 04/28/23 11:40 NM [id number]) Posture Evaluation Position Standing Evaluation View Posterior Pelvis Posture Anteriorly Tilted Weight Distribution Weight Shifted Right,Decreased Wt.Bear on (L) Hip Posture (L) Externally Rotated Knee Posture (L) Genu Valgus,(R) Genu Valgus Patellar Posture (R) Superior Palpation Assessment Location L knee Palpation Location posterior knee, posterior calf , lateral and medial knee Palpation Findings Edema,Soft Tissue Tightness, Tenderness Palpation Details Tenderness and edema along posterior knee and calf. No sign of DVT Tenderness and edema along medial and lateral knee near patella, femoral condyles near joint line Skin Assessment Edema Assessment L ankle Edema Type Non-Pitting Edema Degree 2+ Edema Appearance Discolored,Puffy Circumference Measurement L knee Location 5 cm above patella (60cm), sub patella (51 cm), 10 cm below patella (49 cm) Comments L malleoli (27 cm) with excess on lateral side, at patella ( 56.5 cm) Incisional Assessment Incision Appearance/Comments Bandage is CDI. Still wrapped so could not formally assess incision. No signs of infection around bandage. Will assess further once bandage removed PT-OP-K Range of Motion Start: 04/28/23 10:41 Freq: Status: Active Protocol: Document 04/28/23 10:42 NM (Rec: 04/28/23 11:40 NM [id number]) Knee Goniometric Range of Motion Knee Right Knee ROM WFL No Patient Position Supine Flexion Active (degrees) 120 Flexion Passive (degrees) 125 Extension Active (degrees) 0 Left Knee ROM WFL No Patient Position Supine Flexion Active (degrees) 80 Flexion Passive (degrees) 80 Extension Active (degrees) 10 Comments lacking 10 deg of extension. Pain with knee flex and extension PT-OP-M Strength Start: 04/28/23 10:41 Freq: Status: Active Protocol: Document 04/28/23 10:42 NM (Rec: 04/28/23 11:40 NM [id number]) Hip Strength Hip Manual Muscle Testing Right Flexion (L2) 4- Good- Abduction 4- Good- Adduction 4- Good- External Rotation 3+ Fair+ Internal Rotation 3+ Fair+ Left Flexion (L2) 3+ Fair+ Abduction 3+ Fair+ External Rotation 3+ Fair+ Internal Rotation 3+ Fair+ Comments Assessed in sitting due to knee pain Knee Strength Knee Manual Muscle Testing Right Flexion (S2) 4 Good Extension (L3) 4+ Good+ Left Flexion (S2) 3 Fair Extension (L3) 3 Fair Comments No resistance with MMT due to pain with AROM against gravity . PT-OP-Q Treatments Start: 04/28/23 10:41 Freq: Status: Active Protocol: Document 05/01/23 10:40 NM (Rec: 05/01/23 11:44 NM [id number]) Therapeutic Exercises Supine Exercises Knee ext stretch Supine Exercise Name sustained hold with towel under ankle Side left Reps/Minutes 2 min Quad Set Supine Exercise Name e-stim next time for quad Side left Equipment Used towel under ankle Reps/Minutes 2x5x5 Comments tapping for facilitation of quad ~small activation Heel slides Supine Exercise Name AROM > AAROM Side left Equipment Used strap around foot Reps/Minutes 10x2 Comments Knee flex AROM 1st, then strap assist; up to 90 deg Sitting Exercises Knee Flexion Stretch Sitting Exercise Name sitting with foot on ground, on a pillow case, sliding heel back Side left Reps/Minutes 4 Comments up to 85 deg flex Knee ext selg-mobilization Sitting Exercise Name heel propped on ground with knee ext as much as possible Side left Equipment Used hand for mobilization at quad Reps/Minutes 5x5-10 as tolerated Gait Training Gait Activity Normal Gait Device Used FWW Level of Assistance IND Surface stable Distance/Duration 2x200 ft Treatment Focus normalize gait mechanics, TKE with quad activation, equal step length Comments WBAT about 75% per pt report Beginning of session: demos equal R&L step length, heel> toe, limited TKE, step-through pattern. Does not achieve TKE with L stance. Gait antalgic Manual Therapy Treatment Soft Tissue Mobilization L knee Body Location quads, hamstrings, adductors, lateral knee Mobilization Type Instrument Assisted,Rolling Intensity/Depth Superficial Body Position seated and supine Comments For pain relief and to limit soft tissue restrictions. Used rolling pin and hands. Pt has pain in supine after being in position for > 20 min in session > moved to sitting position to finish soft tissue mob. Self-Care/Home Management Treatment Education Patient Education Home Exercise Program,Pain Management,Safety Other Education HEP: ankle pumps, quad sets, knee ext stretch, supine heel slides, sitting heel slide> knee flex stretch Education: compression socks, frequent icing, gait as tolerated, HEP, sitting posture (no pillows under knee ) PT-OP-T Assessment and Plan Start: 04/28/23 10:41 Freq: Status: Active Protocol: Document 05/01/23 10:40 NM (Rec: 05/01/23 11:44 NM [id number]) Physical Therapy Assessment Rehab Potential Rehabilitation Potential Good Evaluation Complexity Number of Personal Factors/Comorbidities 1-2 Number of Body Systems Impaired 1-2 Clinical Presentation at Evaluation Stable Impairments Impairments Activity Tolerance,Balance, Edema,Functional Activities, Functional Mobility,Gait, Integument,Pain,Posture,ROM, Soft Tissue Mobility,Strength, Transfers Goals Seven Impairment gait Impairment Unable to complete 6 MWT at IE Short Term Goal (STG) Pt will be able to complete a 6 MWT using LRAD in order to demo improved gait mechanics and activity tolerance for community ambulation. STG Duration 6 weeks Care Home Goal (LTG) Pt will improve 6 MWT distance by at least 100 ft using LRAD in order to demo improved gait mechanics and activity tolerance for community ambulation. LTG Duration 12 weeks Six Impairment function Impairment LEFS 10/80 Short Term Goal (STG) Pt will improve LEFS score by at least 9 points (MCID) in order to demo improved activity tolerance and strength. STG Duration 6 weeks Client Analyst Goal (LTG) Pt will improve LEFS score by at least 18 points (2 MCID) in order to demo improved activity tolerance and strength. LTG Duration 12 weeks Five Impairment Balance, function Impairment TUG 41.5 sec with FWW Short Term Goal (STG) Pt will decrease TUG score time to at least 30 seconds or less using LRAD in order to demo improved balance during gait and transfers, to decrease fall risk. STG Duration 6 weeks Client Analyst Goal (LTG) Pt will decrease TUG score time to at least 15 seconds or less using LRAD in order to demo improved balance during gait and transfers, to decrease fall risk. LTG Duration 12 weeks Four Impairment strength Impairment Knee flex 3/5 Short Term Goal (STG) Pt will improve L knee flex strength to at least 4-/5 in order to perform stairs and for propulsion during gait. STG Duration 6 weeks Care Home Goal (LTG) Pt will improve L knee flex strength to at least 4+/5 in order to perform stairs and for propulsion during gat. LTG Duration 12 weeks Three Impairment Strength Impairment Knee ext 3/5 Short Term Goal (STG) Pt will improve L knee ext strength to at least 4-/5 in order to demo improved quad control for stability and TKE for gait. STG Duration 6 weeks Care Home Goal (LTG) Pt will improve L knee ext strength to at least 4+/5 in order to demo improved quad control for stability and TKE for gait. LTG Duration 12 weeks Two Impairment ROM Impairment Knee ext 10 deg AROM (lacking) Short Term Goal (STG) Pt will improve L knee ext to at least 5 deg AROM in order to reach terminal knee extension during gait and improve knee stability during stairs/gait. STG Duration 6 weeks Care Home Goal (LTG) Pt will improve L knee ext to at least 0 deg in order to reach terminal knee extension during gait and improve knee stabiltiy during stairs/gait. LTG Duration 12 weeks One Impairment ROM Impairment Knee flex 80 deg AROM Short Term Goal (STG) Pt will improve L knee flex to at least 100 deg AROM in order to demo improved knee flex ROM for stairs and gait. STG Duration 6 weeks Client Analyst Goal (LTG) Pt will improve L knee flex to at least 115 deg AROM in order to demo improved knee flex ROM for stairs, gait, and to be comparable to RLE. LTG Duration 12 weeks Assessment Summary Assessment Pt tolerated tmt well. Tmt focus today on gentle AROM, gentle stretching, gait mechanics, and initiating quad sets. Initiated seated heel slide> knee flex stretch ( unable to cross RLE over LLE for greater stretch); AROM up to 90 deg, but painful. Knee ext still 10 deg. She has trace quad activation with quad set; will begin e-stim next session to improve quad activation and encourage better knee extension ROM. During gait, she is able to take equal step length between BLE using a step-through pattern, demonstrating heel> toe. She does not achieve TKE and strongly offsets her WB with her UE on the FWW. PT educated pt on elevating LLE with pillows under calf/ankle vs under knee to prevent knee flexion contracture, compression socks, HEP. HEP with heel slides in supine & seated, quad set, knee ext stretch, ankle pumps. Will progress AROM and initiate hip strengthening to tolerance, begin gentle PROM next session . Pt reports tenderness along medial knee. Manual tmt to address soft tissue restrictions meidal/lateral knee, quad, calf, hamstring. She saw her surgeon yesterday, who removed dressings ( incision clean, intact, no infection signs) and has a follow up in 4 weeks. Pt would benefit from skilled PT in order to improve L knee ROM and strength, balance, gait mechanics, and endurance in order to return to PLOF, improve safety, decrease fall risk, and to increase activity tolerance. Physical Therapy Plan Frequency and Duration Frequency of Treatment 2x/Week Duration of treatment (weeks) 12 Plan of Care Start Date 04/28/23 Plan of Care End Date 07/21/23 Therapeutic Interventions Therapeutic Interventions Aquatic Therapy,Balance Training,Gait Training,Home Exercise Program,Joint Mobilizations,Manual Therapy, Neuromuscular Re-education, Patient/Caregiver Education, Self-Care/Home Management,Soft Tissue Mobilization,Taping, Therapeutic Activities, Therapeutic Exercises Modalities Cold Pack/Ice Massage,Electric Stimulation,Hot Packs, Iontophoresis,Ultrasound, Vasopneumatic Devices Next Visit Focus/Plan Next Note Type Treatment Note Next Visit Plan Gentle ROM, swelling mangament , begin e-stim with quad set ( heel elevated) Manual: soft tissue, no scar mgmt yet, gentle PROM Edu: scar tissue formation, sitting posture (no knee flex) - review
--- NOTE | 2023-05-05 13:20 | PT.OTN ---
Current Diagnoses Unilateral primary osteoarthritis, left knee (05/05/23) Physical Therapy Treatment Note PT-OP-A Visit Information Start: 04/28/23 10:41 Freq: Status: Active Protocol: Document 05/05/23 12:20 NM (Rec: 05/05/23 13:04 NM [id number]) Out-Patient Physical Therapy Visit Information Visit Information Visit Type Treatment Note Visit Note DOS: 04/18/23 Visit Start Time 13:18 Visit Stop Time 14:00 Total Visit Minutes 42 Visit Number 3 Evaluation Information Evaluation Date 04/28/23 Precautions Precautions Post-op 04/18/23 (TKA) Fall risk PT-OP-B Current Condition Start: 04/28/23 10:41 Freq: Status: Active Protocol: Document 04/28/23 10:42 NM (Rec: 04/28/23 11:40 NM [id number]) Current Condition History of Current Condition Onset Date 04/18/23 Current Complaints pain, swelling, sleep History of Current Condition Pt presents to clinic with FWW s/p L TKA on 04/19. She is seeing Dr. Patton for her knee. Currently, pt still has her post-op dressings still on and is WBAT with a FWW. Pt has B knee OA, which led to the replacement. She had no pre-op PT. Prior to surgery, she was able to ambulate up to 1/4 mi due to pain, which is a decrease from her baseline which was 1 mi. She is planning on having the R knee replaced in a few months. Pt has steps leading up to her home which is covered by a ramp. She used a FWW for gait prior to surgery due to feeling like she had poor balance; she also has a spc that she uses occasional (not since surgery). Pt reports compliance with HEP from hospital, performing exercises 1-2x/day. She does report some tingling in her LLE down to her foot, but this was occuring prior to her TKA. Her main compliants are pain, weakness, swelling, stiffness, and poor sleep since her surgery. Future Testing and Treatments Planned Follow up 04/[address] Patton Treatment Goals Patient/Caregiver Goals Decrease pain, improve knee motion and strength, be able to sleep without discomfort Prior Functional Status Baseline Function- ADL's Independent Baseline Function- Mobility Independent Baseline Function- Gait FWW or spc for balance; up to 1/4 mi for gait distance Baseline Function- Recreation/Hobbies Gardening (hands and knees) Baseline Function- Other Stairs (no issue) Current Functional Impairments (Reported) Functional Limitations- Mobility/Gait No stairs due to limited motion and pain, no more than household ambulation Functional Limitations- Recreation/ Unable to garden Hobbies PT-OP-C Subjective Start: 04/28/23 10:41 Freq: Status: Active Protocol: Document 05/05/23 12:20 NM (Rec: 05/05/23 13:04 NM [id number]) OP-PT Subjective Patient Comments Patient Comments Pt presents to clinic with 5/ 10 pain, reports soreness in her L knee and that she did not sleep well last night. She states that she feels she has had an improvement in her knee flex range of motion with heel slides. Compliant with HEP. PT-OP-D Balance Start: 04/28/23 10:41 Freq: Status: Active Protocol: Document 04/28/23 10:42 NM (Rec: 04/28/23 11:56 NM [id number]) OP-PT Balance Assessment Sitting Balance Static Sitting Balance Ability Normal Dynamic Sitting Balance Ability Normal Standing Balance Static Standing Balance Ability Good Dynamic Standing Balance Ability Fair Device Used FWW Standing Balance Comments Occasional CGA to steady during gait, changing JUVENCIO Denise Fall Scale Copyright Permission PT-OP-E Functional Tests Start: 04/28/23 10:41 Freq: Status: Active Protocol: Document 04/28/23 10:42 NM (Rec: 04/28/23 11:40 NM [id number]) Functional Tests Timed Up and Go (TUG) Score 41.5 sec Comments FWW, SBA PT-OP-F Manual Assessment Start: 04/28/23 10:41 Freq: Status: Active Protocol: Document 04/28/23 10:42 NM (Rec: 04/28/23 11:40 NM [id number]) Manual Assessments Soft Tissue Assessment Soft Tissue Mobility Assessment Soft tissue restrictions of L hamstring. Edema in L ankle, knee and calf. Will need scar mobilization to prevent adhesions once scar is closed and healed. Joint Mobility Assessment Joint Mobility Assessment Empty end feel with PROM, limited mobility PT-OP-G Mobility & Gait Start: 04/28/23 10:41 Freq: Status: Active Protocol: Document 04/28/23 10:42 NM (Rec: 04/28/23 11:40 NM [id number]) OP Gait Assessment Gait Gait Assistance Required: Standby Assistance Distance (Feet) 200 Able to Maintain Weight Bearing Status Yes During Gait Assistive Devices Assistive Device Gait Belt,Straight Cane,Front Wheeled Walker Gait Deviations General Gait Pattern Antalgic,Decreased Stride Length,Step-to Gait Factors Limiting Gait Function Factors Limiting Gait Function Decreased Activity Tolerance, Decreased Strength,Limited Range of Motion,Pain,Poor Balance Comments Gait Comments Primarily uses FWW for gait. Began using FWW for gait prior in Jun 2022 prior to surgery due to poor balance. PT-OP-H Neuro Start: 04/28/23 10:41 Freq: Status: Active Protocol: Document 04/28/23 10:42 NM (Rec: 04/28/23 11:40 NM [id number]) Sensation Evaluation Gross Sensation Gross Sensation WNL Comments Summary Comments LLE intact to light touch sensation in all dermatomes. PT-OP-J Posture/Palpation/Skin Start: 04/28/23 10:41 Freq: Status: Active Protocol: Document 04/28/23 10:42 NM (Rec: 04/28/23 11:40 NM [id number]) Posture Evaluation Position Standing Evaluation View Posterior Pelvis Posture Anteriorly Tilted Weight Distribution Weight Shifted Right,Decreased Wt.Bear on (L) Hip Posture (L) Externally Rotated Knee Posture (L) Genu Valgus,(R) Genu Valgus Patellar Posture (R) Superior Palpation Assessment Location L knee Palpation Location posterior knee, posterior calf , lateral and medial knee Palpation Findings Edema,Soft Tissue Tightness, Tenderness Palpation Details Tenderness and edema along posterior knee and calf. No sign of DVT Tenderness and edema along medial and lateral knee near patella, femoral condyles near joint line Skin Assessment Edema Assessment L ankle Edema Type Non-Pitting Edema Degree 2+ Edema Appearance Discolored,Puffy Circumference Measurement L knee Location 5 cm above patella (60cm), sub patella (51 cm), 10 cm below patella (49 cm) Comments L malleoli (27 cm) with excess on lateral side, at patella ( 56.5 cm) Incisional Assessment Incision Appearance/Comments Bandage is CDI. Still wrapped so could not formally assess incision. No signs of infection around bandage. Will assess further once bandage removed PT-OP-K Range of Motion Start: 04/28/23 10:41 Freq: Status: Active Protocol: Document 04/28/23 10:42 NM (Rec: 04/28/23 11:40 NM [id number]) Knee Goniometric Range of Motion Knee Right Knee ROM WFL No Patient Position Supine Flexion Active (degrees) 120 Flexion Passive (degrees) 125 Extension Active (degrees) 0 Left Knee ROM WFL No Patient Position Supine Flexion Active (degrees) 80 Flexion Passive (degrees) 80 Extension Active (degrees) 10 Comments lacking 10 deg of extension. Pain with knee flex and extension PT-OP-M Strength Start: 04/28/23 10:41 Freq: Status: Active Protocol: Document 04/28/23 10:42 NM (Rec: 04/28/23 11:40 NM [id number]) Hip Strength Hip Manual Muscle Testing Right Flexion (L2) 4- Good- Abduction 4- Good- Adduction 4- Good- External Rotation 3+ Fair+ Internal Rotation 3+ Fair+ Left Flexion (L2) 3+ Fair+ Abduction 3+ Fair+ External Rotation 3+ Fair+ Internal Rotation 3+ Fair+ Comments Assessed in sitting due to knee pain Knee Strength Knee Manual Muscle Testing Right Flexion (S2) 4 Good Extension (L3) 4+ Good+ Left Flexion (S2) 3 Fair Extension (L3) 3 Fair Comments No resistance with MMT due to pain with AROM against gravity . PT-OP-Q Treatments Start: 04/28/23 10:41 Freq: Status: Active Protocol: Document 05/05/23 12:20 NM (Rec: 05/05/23 13:04 NM [id number]) Therapeutic Exercises Supine Exercises TKE Supine Exercise Name for knee ext Side left Equipment Used teal ball behind knee, between wall Reps/Minutes 5x5 Comments for HEP Short arc quad Supine Exercise Name to improve quad activation, knee ext Side left Equipment Used teal ball under knee (small) Reps/Minutes 8x5 Comments tapping for quad facilitation Knee ext stretch Supine Exercise Name sustained hold with towel under ankle Side left Reps/Minutes 2 min Comments for knee ext Quad Set Supine Exercise Name e-stim next time (quad); move from -8 to -5 Side left Equipment Used towel under ankle Reps/Minutes 10x5 Comments better quad activation, still trace; tapping to facilitate quad Sidelying Exercises Clams Sidelying Exercise Name to begin hip strengthening with short lever arm Side bilateral Reps/Minutes 10x1 Comments cues for neutral hip placement , no rotation Standing Exercises TKE Standing Exercise Name for knee ext Side left Equipment Used teal ball behind knee (small) Reps/Minutes 5x5 Comments at end of session, for HEP Minisquat Standing Exercise Name for knee flex and glute strength Side bilateral Equipment Used //bars, chair behind for target Reps/Minutes 1x15 Manual Therapy Treatment Manual Techniques PROM Body Position Sitting, supine Reps/Duration 30x8 Comments Knee flex, stretching under table. Able to flex passively up to 95 deg before pain. Knee ext in supine, stretching with posterior force on femur and anterior force at L heel with quad contraction PT-OP-T Assessment and Plan Start: 04/28/23 10:41 Freq: Status: Active Protocol: Document 05/05/23 12:20 NM (Rec: 05/05/23 13:04 NM [id number]) Physical Therapy Assessment Goals Seven Impairment gait Impairment Unable to complete 6 MWT at IE Short Term Goal (STG) Pt will be able to complete a 6 MWT using LRAD in order to demo improved gait mechanics and activity tolerance for community ambulation. STG Duration 6 weeks Mcc Goal (LTG) Pt will improve 6 MWT distance by at least 100 ft using LRAD in order to demo improved gait mechanics and activity tolerance for community ambulation. LTG Duration 12 weeks Six Impairment function Impairment LEFS 10/80 Short Term Goal (STG) Pt will improve LEFS score by at least 9 points (MCID) in order to demo improved activity tolerance and strength. STG Duration 6 weeks Mcc Goal (LTG) Pt will improve LEFS score by at least 18 points (2 MCID) in order to demo improved activity tolerance and strength. LTG Duration 12 weeks Five Impairment Balance, function Impairment TUG 41.5 sec with FWW Short Term Goal (STG) Pt will decrease TUG score time to at least 30 seconds or less using LRAD in order to demo improved balance during gait and transfers, to decrease fall risk. STG Duration 6 weeks Painting Department Supervisor Goal (LTG) Pt will decrease TUG score time to at least 15 seconds or less using LRAD in order to demo improved balance during gait and transfers, to decrease fall risk. LTG Duration 12 weeks Four Impairment strength Impairment Knee flex 3/5 Short Term Goal (STG) Pt will improve L knee flex strength to at least 4-/5 in order to perform stairs and for propulsion during gait. STG Duration 6 weeks Mcc Goal (LTG) Pt will improve L knee flex strength to at least 4+/5 in order to perform stairs and for propulsion during gat. LTG Duration 12 weeks Three Impairment Strength Impairment Knee ext 3/5 Short Term Goal (STG) Pt will improve L knee ext strength to at least 4-/5 in order to demo improved quad control for stability and TKE for gait. STG Duration 6 weeks Painting Department Supervisor Goal (LTG) Pt will improve L knee ext strength to at least 4+/5 in order to demo improved quad control for stability and TKE for gait. LTG Duration 12 weeks Two Impairment ROM Impairment Knee ext 10 deg AROM (lacking) Short Term Goal (STG) Pt will improve L knee ext to at least 5 deg AROM in order to reach terminal knee extension during gait and improve knee stability during stairs/gait. STG Duration 6 weeks Painting Department Supervisor Goal (LTG) Pt will improve L knee ext to at least 0 deg in order to reach terminal knee extension during gait and improve knee stabiltiy during stairs/gait. LTG Duration 12 weeks One Impairment ROM Impairment Knee flex 80 deg AROM Short Term Goal (STG) Pt will improve L knee flex to at least 100 deg AROM in order to demo improved knee flex ROM for stairs and gait. STG Duration 6 weeks Mcc Goal (LTG) Pt will improve L knee flex to at least 115 deg AROM in order to demo improved knee flex ROM for stairs, gait, and to be comparable to RLE. LTG Duration 12 weeks Assessment Summary Assessment Pt tolerated tmt well with minimal increases in pain. Tmt focus on restoring knee flex and ext ROM, initiating hip and quad strengthening with clams/SAQs/standing TKE. Began mini-squats today with UE support to a chair in order to promote active knee flex and also strengthen her glutes for better stability during gait/ stairs. Pt has trace activation of L quad but it is improved since last session. PT tapping to facilitate quad during quad sets and SAQ. She is able to ext her L knee from -8 to -5 deg with her heel elevated during active quad contraction. Pt has knee flex to 95 deg passively and 90 deg AROM. Manual PROM to tolerance right now to prevent symptom flare and allow for maximum healing at knee joint. Will initate e-stim of her L quad in next session to maximize quad contraction. HEP issued: SAQ, ball TKE, sidelying clam, supported squats with chair behind. Pt would benefit from skilled PT to increase her L knee ROM and strength, improve gait and balance, manage pain, and decrease swelling in order to return to PLOF and decrease fall risk. Physical Therapy Plan Frequency and Duration Frequency of Treatment 2x/Week Duration of treatment (weeks) 12 Plan of Care Start Date 04/28/23 Plan of Care End Date 07/21/23 Therapeutic Interventions Therapeutic Interventions Aquatic Therapy,Balance Training,Gait Training,Home Exercise Program,Joint Mobilizations,Manual Therapy, Neuromuscular Re-education, Patient/Caregiver Education, Self-Care/Home Management,Soft Tissue Mobilization,Taping, Therapeutic Activities, Therapeutic Exercises Modalities Cold Pack/Ice Massage,Electric Stimulation,Hot Packs, Iontophoresis,Ultrasound, Vasopneumatic Devices Next Visit Focus/Plan Next Note Type Treatment Note Next Visit Plan Gentle ROM, swelling mgmt, begin e-stim with quad set ( heel elevated). Continue hip/ knee strengthening, squat Manual: soft tissue, no scar mgmt yet, gentle PROM with flex/ext Edu: scar tissue formation, sitting posture (no knee flex) - review
--- NOTE | 2023-05-05 13:51 | PT.OTN ---
Current Diagnoses Unilateral primary osteoarthritis, left knee (05/05/23) Physical Therapy Treatment Note PT-OP-A Visit Information Start: 04/28/23 10:41 Freq: Status: Active Protocol: Document 05/05/23 12:20 NM (Rec: 05/05/23 13:04 NM [id number]) Out-Patient Physical Therapy Visit Information Visit Information Visit Type Treatment Note Visit Note DOS: 04/18/23 Visit Start Time 12:18 Visit Stop Time 13:00 Total Visit Minutes 42 Visit Number 3 Evaluation Information Evaluation Date 04/28/23 Precautions Precautions Post-op 04/18/23 (TKA) Fall risk PT-OP-B Current Condition Start: 04/28/23 10:41 Freq: Status: Active Protocol: Document 04/28/23 10:42 NM (Rec: 04/28/23 11:40 NM [id number]) Current Condition History of Current Condition Onset Date 04/18/23 Current Complaints pain, swelling, sleep History of Current Condition Pt presents to clinic with FWW s/p L TKA on 04/19. She is seeing Dr. Patton for her knee. Currently, pt still has her post-op dressings still on and is WBAT with a FWW. Pt has B knee OA, which led to the replacement. She had no pre-op PT. Prior to surgery, she was able to ambulate up to 1/4 mi due to pain, which is a decrease from her baseline which was 1 mi. She is planning on having the R knee replaced in a few months. Pt has steps leading up to her home which is covered by a ramp. She used a FWW for gait prior to surgery due to feeling like she had poor balance; she also has a spc that she uses occasional (not since surgery). Pt reports compliance with HEP from hospital, performing exercises 1-2x/day. She does report some tingling in her LLE down to her foot, but this was occuring prior to her TKA. Her main compliants are pain, weakness, swelling, stiffness, and poor sleep since her surgery. Future Testing and Treatments Planned Follow up 04/[address] Patton Treatment Goals Patient/Caregiver Goals Decrease pain, improve knee motion and strength, be able to sleep without discomfort Prior Functional Status Baseline Function- ADL's Independent Baseline Function- Mobility Independent Baseline Function- Gait FWW or spc for balance; up to 1/4 mi for gait distance Baseline Function- Recreation/Hobbies Gardening (hands and knees) Baseline Function- Other Stairs (no issue) Current Functional Impairments (Reported) Functional Limitations- Mobility/Gait No stairs due to limited motion and pain, no more than household ambulation Functional Limitations- Recreation/ Unable to garden Hobbies PT-OP-C Subjective Start: 04/28/23 10:41 Freq: Status: Active Protocol: Document 05/05/23 12:20 NM (Rec: 05/05/23 13:04 NM [id number]) OP-PT Subjective Patient Comments Patient Comments Pt presents to clinic with 5/ 10 pain, reports soreness in her L knee and that she did not sleep well last night. She states that she feels she has had an improvement in her knee flex range of motion with heel slides. Compliant with HEP. PT-OP-D Balance Start: 04/28/23 10:41 Freq: Status: Active Protocol: Document 04/28/23 10:42 NM (Rec: 04/28/23 11:56 NM [id number]) OP-PT Balance Assessment Sitting Balance Static Sitting Balance Ability Normal Dynamic Sitting Balance Ability Normal Standing Balance Static Standing Balance Ability Good Dynamic Standing Balance Ability Fair Device Used FWW Standing Balance Comments Occasional CGA to steady during gait, changing JUVENCIO Denise Fall Scale Copyright Permission PT-OP-E Functional Tests Start: 04/28/23 10:41 Freq: Status: Active Protocol: Document 04/28/23 10:42 NM (Rec: 04/28/23 11:40 NM [id number]) Functional Tests Timed Up and Go (TUG) Score 41.5 sec Comments FWW, SBA PT-OP-F Manual Assessment Start: 04/28/23 10:41 Freq: Status: Active Protocol: Document 04/28/23 10:42 NM (Rec: 04/28/23 11:40 NM [id number]) Manual Assessments Soft Tissue Assessment Soft Tissue Mobility Assessment Soft tissue restrictions of L hamstring. Edema in L ankle, knee and calf. Will need scar mobilization to prevent adhesions once scar is closed and healed. Joint Mobility Assessment Joint Mobility Assessment Empty end feel with PROM, limited mobility PT-OP-G Mobility & Gait Start: 04/28/23 10:41 Freq: Status: Active Protocol: Document 04/28/23 10:42 NM (Rec: 04/28/23 11:40 NM [id number]) OP Gait Assessment Gait Gait Assistance Required: Standby Assistance Distance (Feet) 200 Able to Maintain Weight Bearing Status Yes During Gait Assistive Devices Assistive Device Gait Belt,Straight Cane,Front Wheeled Walker Gait Deviations General Gait Pattern Antalgic,Decreased Stride Length,Step-to Gait Factors Limiting Gait Function Factors Limiting Gait Function Decreased Activity Tolerance, Decreased Strength,Limited Range of Motion,Pain,Poor Balance Comments Gait Comments Primarily uses FWW for gait. Began using FWW for gait prior in Jun 2022 prior to surgery due to poor balance. PT-OP-H Neuro Start: 04/28/23 10:41 Freq: Status: Active Protocol: Document 04/28/23 10:42 NM (Rec: 04/28/23 11:40 NM [id number]) Sensation Evaluation Gross Sensation Gross Sensation WNL Comments Summary Comments LLE intact to light touch sensation in all dermatomes. PT-OP-J Posture/Palpation/Skin Start: 04/28/23 10:41 Freq: Status: Active Protocol: Document 04/28/23 10:42 NM (Rec: 04/28/23 11:40 NM [id number]) Posture Evaluation Position Standing Evaluation View Posterior Pelvis Posture Anteriorly Tilted Weight Distribution Weight Shifted Right,Decreased Wt.Bear on (L) Hip Posture (L) Externally Rotated Knee Posture (L) Genu Valgus,(R) Genu Valgus Patellar Posture (R) Superior Palpation Assessment Location L knee Palpation Location posterior knee, posterior calf , lateral and medial knee Palpation Findings Edema,Soft Tissue Tightness, Tenderness Palpation Details Tenderness and edema along posterior knee and calf. No sign of DVT Tenderness and edema along medial and lateral knee near patella, femoral condyles near joint line Skin Assessment Edema Assessment L ankle Edema Type Non-Pitting Edema Degree 2+ Edema Appearance Discolored,Puffy Circumference Measurement L knee Location 5 cm above patella (60cm), sub patella (51 cm), 10 cm below patella (49 cm) Comments L malleoli (27 cm) with excess on lateral side, at patella ( 56.5 cm) Incisional Assessment Incision Appearance/Comments Bandage is CDI. Still wrapped so could not formally assess incision. No signs of infection around bandage. Will assess further once bandage removed PT-OP-K Range of Motion Start: 04/28/23 10:41 Freq: Status: Active Protocol: Document 04/28/23 10:42 NM (Rec: 04/28/23 11:40 NM [id number]) Knee Goniometric Range of Motion Knee Right Knee ROM WFL No Patient Position Supine Flexion Active (degrees) 120 Flexion Passive (degrees) 125 Extension Active (degrees) 0 Left Knee ROM WFL No Patient Position Supine Flexion Active (degrees) 80 Flexion Passive (degrees) 80 Extension Active (degrees) 10 Comments lacking 10 deg of extension. Pain with knee flex and extension PT-OP-M Strength Start: 04/28/23 10:41 Freq: Status: Active Protocol: Document 04/28/23 10:42 NM (Rec: 04/28/23 11:40 NM [id number]) Hip Strength Hip Manual Muscle Testing Right Flexion (L2) 4- Good- Abduction 4- Good- Adduction 4- Good- External Rotation 3+ Fair+ Internal Rotation 3+ Fair+ Left Flexion (L2) 3+ Fair+ Abduction 3+ Fair+ External Rotation 3+ Fair+ Internal Rotation 3+ Fair+ Comments Assessed in sitting due to knee pain Knee Strength Knee Manual Muscle Testing Right Flexion (S2) 4 Good Extension (L3) 4+ Good+ Left Flexion (S2) 3 Fair Extension (L3) 3 Fair Comments No resistance with MMT due to pain with AROM against gravity . PT-OP-Q Treatments Start: 04/28/23 10:41 Freq: Status: Active Protocol: Document 05/05/23 12:20 NM (Rec: 05/05/23 13:04 NM [id number]) Therapeutic Exercises Supine Exercises TKE Supine Exercise Name for knee ext Side left Equipment Used teal ball behind knee, between wall Reps/Minutes 5x5 Comments for HEP Short arc quad Supine Exercise Name to improve quad activation, knee ext Side left Equipment Used teal ball under knee (small) Reps/Minutes 8x5 Comments tapping for quad facilitation Knee ext stretch Supine Exercise Name sustained hold with towel under ankle Side left Reps/Minutes 2 min Comments for knee ext Quad Set Supine Exercise Name e-stim next time (quad); move from -8 to -5 Side left Equipment Used towel under ankle Reps/Minutes 10x5 Comments better quad activation, still trace; tapping to facilitate quad Sidelying Exercises Clams Sidelying Exercise Name to begin hip strengthening with short lever arm Side bilateral Reps/Minutes 10x1 Comments cues for neutral hip placement , no rotation Standing Exercises TKE Standing Exercise Name for knee ext Side left Equipment Used teal ball behind knee (small) Reps/Minutes 5x5 Comments at end of session, for HEP Minisquat Standing Exercise Name for knee flex and glute strength Side bilateral Equipment Used //bars, chair behind for target Reps/Minutes 1x15 Manual Therapy Treatment Manual Techniques PROM Body Position Sitting, supine Reps/Duration 30x8 Comments Knee flex, stretching under table. Able to flex passively up to 95 deg before pain. Knee ext in supine, stretching with posterior force on femur and anterior force at L heel with quad contraction PT-OP-T Assessment and Plan Start: 04/28/23 10:41 Freq: Status: Active Protocol: Document 05/05/23 12:20 NM (Rec: 05/05/23 13:04 NM [id number]) Physical Therapy Assessment Goals Seven Impairment gait Impairment Unable to complete 6 MWT at IE Short Term Goal (STG) Pt will be able to complete a 6 MWT using LRAD in order to demo improved gait mechanics and activity tolerance for community ambulation. STG Duration 6 weeks Halfway Goal (LTG) Pt will improve 6 MWT distance by at least 100 ft using LRAD in order to demo improved gait mechanics and activity tolerance for community ambulation. LTG Duration 12 weeks Six Impairment function Impairment LEFS 10/80 Short Term Goal (STG) Pt will improve LEFS score by at least 9 points (MCID) in order to demo improved activity tolerance and strength. STG Duration 6 weeks Halfway Goal (LTG) Pt will improve LEFS score by at least 18 points (2 MCID) in order to demo improved activity tolerance and strength. LTG Duration 12 weeks Five Impairment Balance, function Impairment TUG 41.5 sec with FWW Short Term Goal (STG) Pt will decrease TUG score time to at least 30 seconds or less using LRAD in order to demo improved balance during gait and transfers, to decrease fall risk. STG Duration 6 weeks Support Dba Goal (LTG) Pt will decrease TUG score time to at least 15 seconds or less using LRAD in order to demo improved balance during gait and transfers, to decrease fall risk. LTG Duration 12 weeks Four Impairment strength Impairment Knee flex 3/5 Short Term Goal (STG) Pt will improve L knee flex strength to at least 4-/5 in order to perform stairs and for propulsion during gait. STG Duration 6 weeks Halfway Goal (LTG) Pt will improve L knee flex strength to at least 4+/5 in order to perform stairs and for propulsion during gat. LTG Duration 12 weeks Three Impairment Strength Impairment Knee ext 3/5 Short Term Goal (STG) Pt will improve L knee ext strength to at least 4-/5 in order to demo improved quad control for stability and TKE for gait. STG Duration 6 weeks Support Dba Goal (LTG) Pt will improve L knee ext strength to at least 4+/5 in order to demo improved quad control for stability and TKE for gait. LTG Duration 12 weeks Two Impairment ROM Impairment Knee ext 10 deg AROM (lacking) Short Term Goal (STG) Pt will improve L knee ext to at least 5 deg AROM in order to reach terminal knee extension during gait and improve knee stability during stairs/gait. STG Duration 6 weeks Support Dba Goal (LTG) Pt will improve L knee ext to at least 0 deg in order to reach terminal knee extension during gait and improve knee stabiltiy during stairs/gait. LTG Duration 12 weeks One Impairment ROM Impairment Knee flex 80 deg AROM Short Term Goal (STG) Pt will improve L knee flex to at least 100 deg AROM in order to demo improved knee flex ROM for stairs and gait. STG Duration 6 weeks Halfway Goal (LTG) Pt will improve L knee flex to at least 115 deg AROM in order to demo improved knee flex ROM for stairs, gait, and to be comparable to RLE. LTG Duration 12 weeks Assessment Summary Assessment Pt tolerated tmt well with minimal increases in pain. Tmt focus on restoring knee flex and ext ROM, initiating hip and quad strengthening with clams/SAQs/standing TKE. Began mini-squats today with UE support to a chair in order to promote active knee flex and also strengthen her glutes for better stability during gait/ stairs. Pt has trace activation of L quad but it is improved since last session. PT tapping to facilitate quad during quad sets and SAQ. She is able to ext her L knee from -8 to -5 deg with her heel elevated during active quad contraction. Pt has knee flex to 95 deg passively and 90 deg AROM. Manual PROM to tolerance right now to prevent symptom flare and allow for maximum healing at knee joint. Will initate e-stim of her L quad in next session to maximize quad contraction. HEP issued: SAQ, ball TKE, sidelying clam, supported squats with chair behind. Pt would benefit from skilled PT to increase her L knee ROM and strength, improve gait and balance, manage pain, and decrease swelling in order to return to PLOF and decrease fall risk. Physical Therapy Plan Frequency and Duration Frequency of Treatment 2x/Week Duration of treatment (weeks) 12 Plan of Care Start Date 04/28/23 Plan of Care End Date 07/21/23 Therapeutic Interventions Therapeutic Interventions Aquatic Therapy,Balance Training,Gait Training,Home Exercise Program,Joint Mobilizations,Manual Therapy, Neuromuscular Re-education, Patient/Caregiver Education, Self-Care/Home Management,Soft Tissue Mobilization,Taping, Therapeutic Activities, Therapeutic Exercises Modalities Cold Pack/Ice Massage,Electric Stimulation,Hot Packs, Iontophoresis,Ultrasound, Vasopneumatic Devices Next Visit Focus/Plan Next Note Type Treatment Note Next Visit Plan Gentle ROM, swelling mgmt, begin e-stim with quad set ( heel elevated). Continue hip/ knee strengthening, squat Manual: soft tissue, no scar mgmt yet, gentle PROM with flex/ext Edu: scar tissue formation, sitting posture (no knee flex) - review
--- NOTE | 2023-05-07 16:07 | PT.OTN ---
Current Diagnoses Unilateral primary osteoarthritis, left knee (05/07/23) Physical Therapy Treatment Note PT-OP-A Visit Information Start: 04/28/23 10:41 Freq: Status: Active Protocol: Document 05/07/23 12:15 NM (Rec: 05/07/23 13:02 NM [id number]) Out-Patient Physical Therapy Visit Information Visit Information Visit Type Treatment Note Visit Note DOS: 04/18/23 Visit Start Time 12:13 Visit Stop Time 12:58 Total Visit Minutes 45 Visit Number 4 Evaluation Information Evaluation Date 04/28/23 Precautions Precautions Post-op 04/18/23 (TKA) Fall risk PT-OP-B Current Condition Start: 04/28/23 10:41 Freq: Status: Active Protocol: Document 04/28/23 10:42 NM (Rec: 04/28/23 11:40 NM [id number]) Current Condition History of Current Condition Onset Date 04/18/23 Current Complaints pain, swelling, sleep History of Current Condition Pt presents to clinic with FWW s/p L TKA on 04/19. She is seeing Dr. Patton for her knee. Currently, pt still has her post-op dressings still on and is WBAT with a FWW. Pt has B knee OA, which led to the replacement. She had no pre-op PT. Prior to surgery, she was able to ambulate up to 1/4 mi due to pain, which is a decrease from her baseline which was 1 mi. She is planning on having the R knee replaced in a few months. Pt has steps leading up to her home which is covered by a ramp. She used a FWW for gait prior to surgery due to feeling like she had poor balance; she also has a spc that she uses occasional (not since surgery). Pt reports compliance with HEP from hospital, performing exercises 1-2x/day. She does report some tingling in her LLE down to her foot, but this was occuring prior to her TKA. Her main compliants are pain, weakness, swelling, stiffness, and poor sleep since her surgery. Future Testing and Treatments Planned Follow up 04/[address] Patton Treatment Goals Patient/Caregiver Goals Decrease pain, improve knee motion and strength, be able to sleep without discomfort Prior Functional Status Baseline Function- ADL's Independent Baseline Function- Mobility Independent Baseline Function- Gait FWW or spc for balance; up to 1/4 mi for gait distance Baseline Function- Recreation/Hobbies Gardening (hands and knees) Baseline Function- Other Stairs (no issue) Current Functional Impairments (Reported) Functional Limitations- Mobility/Gait No stairs due to limited motion and pain, no more than household ambulation Functional Limitations- Recreation/ Unable to garden Hobbies PT-OP-C Subjective Start: 04/28/23 10:41 Freq: Status: Active Protocol: Document 05/07/23 12:15 NM (Rec: 05/07/23 13:02 NM [id number]) OP-PT Subjective Patient Comments Patient Comments Pt presents to clinic with 5/ 10 L knee pain. She reports decreased swelling in her L knee and compliance with her exercises at home. She states that she just woke up so she is very tired. PT-OP-D Balance Start: 04/28/23 10:41 Freq: Status: Active Protocol: Document 04/28/23 10:42 NM (Rec: 04/28/23 11:56 NM [id number]) OP-PT Balance Assessment Sitting Balance Static Sitting Balance Ability Normal Dynamic Sitting Balance Ability Normal Standing Balance Static Standing Balance Ability Good Dynamic Standing Balance Ability Fair Device Used FWW Standing Balance Comments Occasional CGA to steady during gait, changing JUVENCIO Denise Fall Scale Copyright Permission PT-OP-E Functional Tests Start: 04/28/23 10:41 Freq: Status: Active Protocol: Document 04/28/23 10:42 NM (Rec: 04/28/23 11:40 NM [id number]) Functional Tests Timed Up and Go (TUG) Score 41.5 sec Comments FWW, SBA PT-OP-F Manual Assessment Start: 04/28/23 10:41 Freq: Status: Active Protocol: Document 04/28/23 10:42 NM (Rec: 04/28/23 11:40 NM [id number]) Manual Assessments Soft Tissue Assessment Soft Tissue Mobility Assessment Soft tissue restrictions of L hamstring. Edema in L ankle, knee and calf. Will need scar mobilization to prevent adhesions once scar is closed and healed. Joint Mobility Assessment Joint Mobility Assessment Empty end feel with PROM, limited mobility PT-OP-G Mobility & Gait Start: 04/28/23 10:41 Freq: Status: Active Protocol: Document 04/28/23 10:42 NM (Rec: 04/28/23 11:40 NM [id number]) OP Gait Assessment Gait Gait Assistance Required: Standby Assistance Distance (Feet) 200 Able to Maintain Weight Bearing Status Yes During Gait Assistive Devices Assistive Device Gait Belt,Straight Cane,Front Wheeled Walker Gait Deviations General Gait Pattern Antalgic,Decreased Stride Length,Step-to Gait Factors Limiting Gait Function Factors Limiting Gait Function Decreased Activity Tolerance, Decreased Strength,Limited Range of Motion,Pain,Poor Balance Comments Gait Comments Primarily uses FWW for gait. Began using FWW for gait prior in Jun 2022 prior to surgery due to poor balance. PT-OP-H Neuro Start: 04/28/23 10:41 Freq: Status: Active Protocol: Document 04/28/23 10:42 NM (Rec: 04/28/23 11:40 NM [id number]) Sensation Evaluation Gross Sensation Gross Sensation WNL Comments Summary Comments LLE intact to light touch sensation in all dermatomes. PT-OP-J Posture/Palpation/Skin Start: 04/28/23 10:41 Freq: Status: Active Protocol: Document 04/28/23 10:42 NM (Rec: 04/28/23 11:40 NM [id number]) Posture Evaluation Position Standing Evaluation View Posterior Pelvis Posture Anteriorly Tilted Weight Distribution Weight Shifted Right,Decreased Wt.Bear on (L) Hip Posture (L) Externally Rotated Knee Posture (L) Genu Valgus,(R) Genu Valgus Patellar Posture (R) Superior Palpation Assessment Location L knee Palpation Location posterior knee, posterior calf , lateral and medial knee Palpation Findings Edema,Soft Tissue Tightness, Tenderness Palpation Details Tenderness and edema along posterior knee and calf. No sign of DVT Tenderness and edema along medial and lateral knee near patella, femoral condyles near joint line Skin Assessment Edema Assessment L ankle Edema Type Non-Pitting Edema Degree 2+ Edema Appearance Discolored,Puffy Circumference Measurement L knee Location 5 cm above patella (60cm), sub patella (51 cm), 10 cm below patella (49 cm) Comments L malleoli (27 cm) with excess on lateral side, at patella ( 56.5 cm) Incisional Assessment Incision Appearance/Comments Bandage is CDI. Still wrapped so could not formally assess incision. No signs of infection around bandage. Will assess further once bandage removed PT-OP-K Range of Motion Start: 04/28/23 10:41 Freq: Status: Active Protocol: Document 04/28/23 10:42 NM (Rec: 04/28/23 11:40 NM [id number]) Knee Goniometric Range of Motion Knee Right Knee ROM WFL No Patient Position Supine Flexion Active (degrees) 120 Flexion Passive (degrees) 125 Extension Active (degrees) 0 Left Knee ROM WFL No Patient Position Supine Flexion Active (degrees) 80 Flexion Passive (degrees) 80 Extension Active (degrees) 10 Comments lacking 10 deg of extension. Pain with knee flex and extension PT-OP-M Strength Start: 04/28/23 10:41 Freq: Status: Active Protocol: Document 04/28/23 10:42 NM (Rec: 04/28/23 11:40 NM [id number]) Hip Strength Hip Manual Muscle Testing Right Flexion (L2) 4- Good- Abduction 4- Good- Adduction 4- Good- External Rotation 3+ Fair+ Internal Rotation 3+ Fair+ Left Flexion (L2) 3+ Fair+ Abduction 3+ Fair+ External Rotation 3+ Fair+ Internal Rotation 3+ Fair+ Comments Assessed in sitting due to knee pain Knee Strength Knee Manual Muscle Testing Right Flexion (S2) 4 Good Extension (L3) 4+ Good+ Left Flexion (S2) 3 Fair Extension (L3) 3 Fair Comments No resistance with MMT due to pain with AROM against gravity . PT-OP-Q Treatments Start: 04/28/23 10:41 Freq: Status: Active Protocol: Document 05/07/23 12:15 NM (Rec: 05/07/23 13:02 NM [id number]) Therapeutic Exercises Supine Exercises Short arc quad Supine Exercise Name to improve quad activation, knee ext Side left Equipment Used teal ball under knee (small) Reps/Minutes 15x5 Comments tapping for quad facilitation Knee ext stretch Supine Exercise Name sustained hold with towel under ankle Side left Reps/Minutes 2 min Comments for knee ext Quad Set Side left Equipment Used towel under knee Reps/Minutes 5x5, 3 sets Comments better quad activation, still trace; tapping to facilitate quad Sitting Exercises Knee flex Sitting Exercise Name AROM Side left Equipment Used elevated over ground, active contraction Reps/Minutes 1x15 Comments up to 85 deg actively Knee ext selg-mobilization Sitting Exercise Name heel propped on ground with knee ext as much as possible Side left Equipment Used hand for mobilization at quad Reps/Minutes 15x5 Standing Exercises Minisquat Standing Exercise Name for knee flex and glute strength Side bilateral Equipment Used //bar, chair behind for target (touching chair with buttocks ) Reps/Minutes 1x20 Comments cues for more hip ext and knee flex; up to 90 deg Manual Therapy Treatment Soft Tissue Mobilization L knee Body Location quads, hamstrings, adductors, lateral knee Mobilization Type Rolling Intensity/Depth Superficial Body Position seated and supine Comments For pain relief and to limit soft tissue restrictions. Joint Mobilizations Patella Direction superior/inferior, medial/ lateral Grade II Body Position Supine Reps/Duration 90 ea direction Comments To improve knee ext mobility Manual Techniques PROM Body Position Sitting, supine Reps/Duration 30x8 Comments Knee flex, stretching under table. Able to flex passively up to 95 deg before pain. Knee ext in supine, stretching with posterior force on femur and tibia with quad contraction to assist in extension mobilization. Able to get up to -4 deg ext PT-OP-T Assessment and Plan Start: 04/28/23 10:41 Freq: Status: Active Protocol: Document 05/07/23 12:15 NM (Rec: 05/07/23 13:02 NM [id number]) Physical Therapy Assessment Goals Seven Impairment gait Impairment Unable to complete 6 MWT at IE Short Term Goal (STG) Pt will be able to complete a 6 MWT using LRAD in order to demo improved gait mechanics and activity tolerance for community ambulation. STG Duration 6 weeks Prison Goal (LTG) Pt will improve 6 MWT distance by at least 100 ft using LRAD in order to demo improved gait mechanics and activity tolerance for community ambulation. LTG Duration 12 weeks Six Impairment function Impairment LEFS 10/80 Short Term Goal (STG) Pt will improve LEFS score by at least 9 points (MCID) in order to demo improved activity tolerance and strength. STG Duration 6 weeks Supply Clerk Goal (LTG) Pt will improve LEFS score by at least 18 points (2 MCID) in order to demo improved activity tolerance and strength. LTG Duration 12 weeks Five Impairment Balance, function Impairment TUG 41.5 sec with FWW Short Term Goal (STG) Pt will decrease TUG score time to at least 30 seconds or less using LRAD in order to demo improved balance during gait and transfers, to decrease fall risk. STG Duration 6 weeks Prison Goal (LTG) Pt will decrease TUG score time to at least 15 seconds or less using LRAD in order to demo improved balance during gait and transfers, to decrease fall risk. LTG Duration 12 weeks Four Impairment strength Impairment Knee flex 3/5 Short Term Goal (STG) Pt will improve L knee flex strength to at least 4-/5 in order to perform stairs and for propulsion during gait. STG Duration 6 weeks Prison Goal (LTG) Pt will improve L knee flex strength to at least 4+/5 in order to perform stairs and for propulsion during gat. LTG Duration 12 weeks Three Impairment Strength Impairment Knee ext 3/5 Short Term Goal (STG) Pt will improve L knee ext strength to at least 4-/5 in order to demo improved quad control for stability and TKE for gait. STG Duration 6 weeks Supply Clerk Goal (LTG) Pt will improve L knee ext strength to at least 4+/5 in order to demo improved quad control for stability and TKE for gait. LTG Duration 12 weeks Two Impairment ROM Impairment Knee ext 10 deg AROM (lacking) Short Term Goal (STG) Pt will improve L knee ext to at least 5 deg AROM in order to reach terminal knee extension during gait and improve knee stability during stairs/gait. STG Duration 6 weeks Supply Clerk Goal (LTG) Pt will improve L knee ext to at least 0 deg in order to reach terminal knee extension during gait and improve knee stabiltiy during stairs/gait. LTG Duration 12 weeks One Impairment ROM Impairment Knee flex 80 deg AROM Short Term Goal (STG) Pt will improve L knee flex to at least 100 deg AROM in order to demo improved knee flex ROM for stairs and gait. STG Duration 6 weeks Supply Clerk Goal (LTG) Pt will improve L knee flex to at least 115 deg AROM in order to demo improved knee flex ROM for stairs, gait, and to be comparable to RLE. LTG Duration 12 weeks Assessment Summary Assessment Pt tolerated tmt well with minimal increases in pain. Continued with TKE, SAQ, quad sets; will progress hip strengthening in next session. She continues to have limitations in active knee ext and activating her L quad. Her active knee ext is -8 deg. In this session, pt has begun to compensate for decreased quad activation with glute contraction. Pt has improved active knee flex, up to 90-95 deg consistently, but this is the most painful motion. She also continues to present with global swelling in her L knee . Manual tmt to focus on soft tissue to decrease edema, patellar mobilizations to improve knee ROM, and gentle knee flex/ext mobilizations to improve ROM without exacerbating pain. Pt tolerated mobilizations well, will continue in future sessions to improve mobility. PT and pt discussed continuing to ice, elevate her knee after PT (she has an iceman at home), and to trial compression socks to assist in swelling reduction. Pt would benefit from skilled PT to improve L knee ROM and strength impairments, gait and balance impairments to decrease fall risk, improve mobility, and return to PLOF. Physical Therapy Plan Frequency and Duration Frequency of Treatment 2x/Week Duration of treatment (weeks) 12 Plan of Care Start Date 04/28/23 Plan of Care End Date 07/21/23 Therapeutic Interventions Therapeutic Interventions Aquatic Therapy,Balance Training,Gait Training,Home Exercise Program,Joint Mobilizations,Manual Therapy, Neuromuscular Re-education, Patient/Caregiver Education, Self-Care/Home Management,Soft Tissue Mobilization,Taping, Therapeutic Activities, Therapeutic Exercises Modalities Cold Pack/Ice Massage,Electric Stimulation,Hot Packs, Iontophoresis,Ultrasound, Vasopneumatic Devices Next Visit Focus/Plan Next Note Type Treatment Note Next Visit Plan Gentle ROM, swelling mgmt, begin e-stim with quad set ( heel elevated). Continue hip/ knee strengthening, squat Manual: soft tissue, no scar mgmt yet, gentle PROM with flex/ext Edu: scar tissue formation, sitting posture (no knee flex) - review
--- NOTE | 2023-05-12 15:42 | PT.OTN ---
Current Diagnoses Unilateral primary osteoarthritis, left knee (05/12/23) Physical Therapy Treatment Note PT-OP-A Visit Information Start: 04/28/23 10:41 Freq: Status: Active Protocol: Document 05/12/23 12:18 NM (Rec: 05/12/23 12:59 NM [id number]) Out-Patient Physical Therapy Visit Information Visit Information Visit Type Treatment Note Visit Note DOS: 04/18/23 Visit Start Time 12:20 Visit Stop Time 13:00 Total Visit Minutes 40 Visit Number 5 Evaluation Information Evaluation Date 04/28/23 Precautions Precautions Post-op 04/18/23 (TKA) Fall risk PT-OP-B Current Condition Start: 04/28/23 10:41 Freq: Status: Active Protocol: Document 04/28/23 10:42 NM (Rec: 04/28/23 11:40 NM [id number]) Current Condition History of Current Condition Onset Date 04/18/23 Current Complaints pain, swelling, sleep History of Current Condition Pt presents to clinic with FWW s/p L TKA on 04/19. She is seeing Dr. Patton for her knee. Currently, pt still has her post-op dressings still on and is WBAT with a FWW. Pt has B knee OA, which led to the replacement. She had no pre-op PT. Prior to surgery, she was able to ambulate up to 1/4 mi due to pain, which is a decrease from her baseline which was 1 mi. She is planning on having the R knee replaced in a few months. Pt has steps leading up to her home which is covered by a ramp. She used a FWW for gait prior to surgery due to feeling like she had poor balance; she also has a spc that she uses occasional (not since surgery). Pt reports compliance with HEP from hospital, performing exercises 1-2x/day. She does report some tingling in her LLE down to her foot, but this was occuring prior to her TKA. Her main compliants are pain, weakness, swelling, stiffness, and poor sleep since her surgery. Future Testing and Treatments Planned Follow up 04/[address] Patton Treatment Goals Patient/Caregiver Goals Decrease pain, improve knee motion and strength, be able to sleep without discomfort Prior Functional Status Baseline Function- ADL's Independent Baseline Function- Mobility Independent Baseline Function- Gait FWW or spc for balance; up to 1/4 mi for gait distance Baseline Function- Recreation/Hobbies Gardening (hands and knees) Baseline Function- Other Stairs (no issue) Current Functional Impairments (Reported) Functional Limitations- Mobility/Gait No stairs due to limited motion and pain, no more than household ambulation Functional Limitations- Recreation/ Unable to garden Hobbies PT-OP-C Subjective Start: 04/28/23 10:41 Freq: Status: Active Protocol: Document 05/12/23 12:18 NM (Rec: 05/12/23 12:59 NM [id number]) OP-PT Subjective Patient Comments Patient Comments Pt presents to clinic with 5/ 10 L knee pain, but decreased swelling since last visit. She reports that she has been wearing compression socks for a couple of hours, which she reports has helped. She also reports that she can feel her quad contract more with her exercises. Patient Reported Progress Improving PT-OP-D Balance Start: 04/28/23 10:41 Freq: Status: Active Protocol: Document 04/28/23 10:42 NM (Rec: 04/28/23 11:56 NM [id number]) OP-PT Balance Assessment Sitting Balance Static Sitting Balance Ability Normal Dynamic Sitting Balance Ability Normal Standing Balance Static Standing Balance Ability Good Dynamic Standing Balance Ability Fair Device Used FWW Standing Balance Comments Occasional CGA to steady during gait, changing JUVENCIO Denise Fall Scale Copyright Permission PT-OP-E Functional Tests Start: 04/28/23 10:41 Freq: Status: Active Protocol: Document 04/28/23 10:42 NM (Rec: 04/28/23 11:40 NM [id number]) Functional Tests Timed Up and Go (TUG) Score 41.5 sec Comments FWW, SBA PT-OP-F Manual Assessment Start: 04/28/23 10:41 Freq: Status: Active Protocol: Document 04/28/23 10:42 NM (Rec: 04/28/23 11:40 NM [id number]) Manual Assessments Soft Tissue Assessment Soft Tissue Mobility Assessment Soft tissue restrictions of L hamstring. Edema in L ankle, knee and calf. Will need scar mobilization to prevent adhesions once scar is closed and healed. Joint Mobility Assessment Joint Mobility Assessment Empty end feel with PROM, limited mobility PT-OP-G Mobility & Gait Start: 04/28/23 10:41 Freq: Status: Active Protocol: Document 04/28/23 10:42 NM (Rec: 04/28/23 11:40 NM [id number]) OP Gait Assessment Gait Gait Assistance Required: Standby Assistance Distance (Feet) 200 Able to Maintain Weight Bearing Status Yes During Gait Assistive Devices Assistive Device Gait Belt,Straight Cane,Front Wheeled Walker Gait Deviations General Gait Pattern Antalgic,Decreased Stride Length,Step-to Gait Factors Limiting Gait Function Factors Limiting Gait Function Decreased Activity Tolerance, Decreased Strength,Limited Range of Motion,Pain,Poor Balance Comments Gait Comments Primarily uses FWW for gait. Began using FWW for gait prior in Jun 2022 prior to surgery due to poor balance. PT-OP-H Neuro Start: 04/28/23 10:41 Freq: Status: Active Protocol: Document 04/28/23 10:42 NM (Rec: 04/28/23 11:40 NM [id number]) Sensation Evaluation Gross Sensation Gross Sensation WNL Comments Summary Comments LLE intact to light touch sensation in all dermatomes. PT-OP-J Posture/Palpation/Skin Start: 04/28/23 10:41 Freq: Status: Active Protocol: Document 04/28/23 10:42 NM (Rec: 04/28/23 11:40 NM [id number]) Posture Evaluation Position Standing Evaluation View Posterior Pelvis Posture Anteriorly Tilted Weight Distribution Weight Shifted Right,Decreased Wt.Bear on (L) Hip Posture (L) Externally Rotated Knee Posture (L) Genu Valgus,(R) Genu Valgus Patellar Posture (R) Superior Palpation Assessment Location L knee Palpation Location posterior knee, posterior calf , lateral and medial knee Palpation Findings Edema,Soft Tissue Tightness, Tenderness Palpation Details Tenderness and edema along posterior knee and calf. No sign of DVT Tenderness and edema along medial and lateral knee near patella, femoral condyles near joint line Skin Assessment Edema Assessment L ankle Edema Type Non-Pitting Edema Degree 2+ Edema Appearance Discolored,Puffy Circumference Measurement L knee Location 5 cm above patella (60cm), sub patella (51 cm), 10 cm below patella (49 cm) Comments L malleoli (27 cm) with excess on lateral side, at patella ( 56.5 cm) Incisional Assessment Incision Appearance/Comments Bandage is CDI. Still wrapped so could not formally assess incision. No signs of infection around bandage. Will assess further once bandage removed PT-OP-K Range of Motion Start: 04/28/23 10:41 Freq: Status: Active Protocol: Document 04/28/23 10:42 NM (Rec: 04/28/23 11:40 NM [id number]) Knee Goniometric Range of Motion Knee Right Knee ROM WFL No Patient Position Supine Flexion Active (degrees) 120 Flexion Passive (degrees) 125 Extension Active (degrees) 0 Left Knee ROM WFL No Patient Position Supine Flexion Active (degrees) 80 Flexion Passive (degrees) 80 Extension Active (degrees) 10 Comments lacking 10 deg of extension. Pain with knee flex and extension PT-OP-M Strength Start: 04/28/23 10:41 Freq: Status: Active Protocol: Document 04/28/23 10:42 NM (Rec: 04/28/23 11:40 NM [id number]) Hip Strength Hip Manual Muscle Testing Right Flexion (L2) 4- Good- Abduction 4- Good- Adduction 4- Good- External Rotation 3+ Fair+ Internal Rotation 3+ Fair+ Left Flexion (L2) 3+ Fair+ Abduction 3+ Fair+ External Rotation 3+ Fair+ Internal Rotation 3+ Fair+ Comments Assessed in sitting due to knee pain Knee Strength Knee Manual Muscle Testing Right Flexion (S2) 4 Good Extension (L3) 4+ Good+ Left Flexion (S2) 3 Fair Extension (L3) 3 Fair Comments No resistance with MMT due to pain with AROM against gravity . PT-OP-Q Treatments Start: 04/28/23 10:41 Freq: Status: Active Protocol: Document 05/12/23 12:18 NM (Rec: 05/12/23 12:59 NM [id number]) Therapeutic Exercises Supine Exercises SLR Supine Exercise Name Trialed Side left Equipment Used pillow under foot (add 1 in) to assist with lift; quad set Reps/Minutes 1x5 Comments demos quad lag; PT assist with eccentric lower bridge Side bilateral Reps/Minutes 1x10x3 Comments cues to put weight through heels; RLE a little closer to buttocks Short arc quad Supine Exercise Name to improve quad activation, knee ext Side left Equipment Used large blue kickball under knee Reps/Minutes 10x3 Comments improved quad contraction Quad Set Side left Equipment Used shoes on Reps/Minutes 10x5 Comments improved quad contraction Sidelying Exercises Hip abduction Sidelying Exercise Name added to HEP Side left Reps/Minutes 1x10 Comments pillow under L leg to decrease distance; cues for toe down Sitting Exercises Knee Flexion Stretch Sitting Exercise Name RLE crossed over LLE to assist with stretch Side left Reps/Minutes 10x10 Comments added to HEP Standing Exercises March Side left Equipment Used //bars for UE support only Reps/Minutes 2x10, 1 pause at top Comments cues for knee flex and DF to promote knee flex Minisquat Standing Exercise Name for knee flex and glute strength Side bilateral Equipment Used //bar, chair behind for target (touching chair with buttocks ) Reps/Minutes 2x15 Comments cues for knee flex, sit back into chair Gait Training Gait Activity Normal Gait Device Used FWW Level of Assistance IND Surface stable Distance/Duration 500 ft Treatment Focus for normal gait mechanics Comments Pt cued to put more weight onto LLE and TKE, more knee flex with swing phase. Pt reports that she feels like she is almost at 100% WB on her LLE. Able to demo good heel strike, loading response. Continues to be limited in last few degrees of TKE. Decreased knee flex overall. Manual Therapy Treatment Joint Mobilizations Patella Direction superior/inferior, medial/ lateral Grade II Body Position Supine Reps/Duration 90 ea direction Comments To improve knee ext mobility Manual Techniques PROM Body Position Sitting, supine Reps/Duration 30x8 Comments Knee flex, stretching under table. Able to flex passively up to 95 deg before pain. Knee ext in supine, stretching with posterior force on femur and tibia with quad contraction to assist in extension mobilization. Able to get up to -4 deg ext PT-OP-T Assessment and Plan Start: 04/28/23 10:41 Freq: Status: Active Protocol: Document 05/12/23 12:18 NM (Rec: 05/12/23 12:59 NM [id number]) Physical Therapy Assessment Goals Seven Impairment gait Impairment Unable to complete 6 MWT at IE Short Term Goal (STG) Pt will be able to complete a 6 MWT using LRAD in order to demo improved gait mechanics and activity tolerance for community ambulation. STG Duration 6 weeks Longterm Goal (LTG) Pt will improve 6 MWT distance by at least 100 ft using LRAD in order to demo improved gait mechanics and activity tolerance for community ambulation. LTG Duration 12 weeks Six Impairment function Impairment LEFS 10/80 Short Term Goal (STG) Pt will improve LEFS score by at least 9 points (MCID) in order to demo improved activity tolerance and strength. STG Duration 6 weeks Longterm Goal (LTG) Pt will improve LEFS score by at least 18 points (2 MCID) in order to demo improved activity tolerance and strength. LTG Duration 12 weeks Five Impairment Balance, function Impairment TUG 41.5 sec with FWW Short Term Goal (STG) Pt will decrease TUG score time to at least 30 seconds or less using LRAD in order to demo improved balance during gait and transfers, to decrease fall risk. STG Duration 6 weeks Folded Towel Machine Operator Goal (LTG) Pt will decrease TUG score time to at least 15 seconds or less using LRAD in order to demo improved balance during gait and transfers, to decrease fall risk. LTG Duration 12 weeks Four Impairment strength Impairment Knee flex 3/5 Short Term Goal (STG) Pt will improve L knee flex strength to at least 4-/5 in order to perform stairs and for propulsion during gait. STG Duration 6 weeks Folded Towel Machine Operator Goal (LTG) Pt will improve L knee flex strength to at least 4+/5 in order to perform stairs and for propulsion during gat. LTG Duration 12 weeks Three Impairment Strength Impairment Knee ext 3/5 Short Term Goal (STG) Pt will improve L knee ext strength to at least 4-/5 in order to demo improved quad control for stability and TKE for gait. STG Duration 6 weeks Longterm Goal (LTG) Pt will improve L knee ext strength to at least 4+/5 in order to demo improved quad control for stability and TKE for gait. LTG Duration 12 weeks Two Impairment ROM Impairment Knee ext 10 deg AROM (lacking) Short Term Goal (STG) Pt will improve L knee ext to at least 5 deg AROM in order to reach terminal knee extension during gait and improve knee stability during stairs/gait. STG Duration 6 weeks Longterm Goal (LTG) Pt will improve L knee ext to at least 0 deg in order to reach terminal knee extension during gait and improve knee stabiltiy during stairs/gait. LTG Duration 12 weeks One Impairment ROM Impairment Knee flex 80 deg AROM Short Term Goal (STG) Pt will improve L knee flex to at least 100 deg AROM in order to demo improved knee flex ROM for stairs and gait. STG Duration 6 weeks Longterm Goal (LTG) Pt will improve L knee flex to at least 115 deg AROM in order to demo improved knee flex ROM for stairs, gait, and to be comparable to RLE. LTG Duration 12 weeks Assessment Summary Assessment Pt presents with decreased swelling in LLE compared to previous sessions. During gait , pt cued to put more weight onto LLE and TKE, more knee flex with swing phase. Pt reports that she feels like she is almost at 100% WB on her LLE. Added standing L hip/ knee flex, seated knee flex stretch, bridge, sidelying abduction. Added all to HEP. Progressed SAQ to larger ball to encourage more quad involvement and continued with squat (pt up to 90 deg knee flex); pt demos improved quad activation today compared to previous sessions. Will continue to progress LLE strengthening and ROM as tolerated. Manual tmt consisted of patellar glides, PROM knee flex and ext. Pt is able to actively reach -5 deg knee ext and 95 deg knee flex; will continue to address ROM in future sessions. Pt would benefit from skilled PT to address impairments in L knee ROM, strength, gait, balance, and endurance in order to return to PLOF. Physical Therapy Plan Frequency and Duration Frequency of Treatment 2x/Week Duration of treatment (weeks) 12 Plan of Care Start Date 04/28/23 Plan of Care End Date 07/21/23 Therapeutic Interventions Therapeutic Interventions Aquatic Therapy,Balance Training,Gait Training,Home Exercise Program,Joint Mobilizations,Manual Therapy, Neuromuscular Re-education, Patient/Caregiver Education, Self-Care/Home Management,Soft Tissue Mobilization,Taping, Therapeutic Activities, Therapeutic Exercises Modalities Cold Pack/Ice Massage,Electric Stimulation,Hot Packs, Iontophoresis,Ultrasound, Vasopneumatic Devices Next Visit Focus/Plan Next Note Type Treatment Note Next Visit Plan Gentle ROM, swelling mgmt, begin e-stim with quad set. Continue hip/knee strengthening, squat. Trial bike Manual: soft tissue, no scar mgmt yet, gentle PROM with flex/ext Edu: scar tissue formation, sitting posture (no knee flex) - review
--- NOTE | 2023-05-15 11:48 | PT.OTN ---
Current Diagnoses Unilateral primary osteoarthritis, left knee (05/15/23) Physical Therapy Treatment Note PT-OP-A Visit Information Start: 04/28/23 10:41 Freq: Status: Active Protocol: Document 05/15/23 10:35 NM (Rec: 05/15/23 11:46 NM [id number]) Out-Patient Physical Therapy Visit Information Visit Information Visit Type Treatment Note Visit Note DOS: 04/18/23 Visit Start Time 10:30 Visit Stop Time 11:15 Total Visit Minutes 45 Visit Number 6 Evaluation Information Evaluation Date 04/28/23 Precautions Precautions Post-op 04/18/23 (TKA) Fall risk PT-OP-B Current Condition Start: 04/28/23 10:41 Freq: Status: Active Protocol: Document 04/28/23 10:42 NM (Rec: 04/28/23 11:40 NM [id number]) Current Condition History of Current Condition Onset Date 04/18/23 Current Complaints pain, swelling, sleep History of Current Condition Pt presents to clinic with FWW s/p L TKA on 04/19. She is seeing Dr. Patton for her knee. Currently, pt still has her post-op dressings still on and is WBAT with a FWW. Pt has B knee OA, which led to the replacement. She had no pre-op PT. Prior to surgery, she was able to ambulate up to 1/4 mi due to pain, which is a decrease from her baseline which was 1 mi. She is planning on having the R knee replaced in a few months. Pt has steps leading up to her home which is covered by a ramp. She used a FWW for gait prior to surgery due to feeling like she had poor balance; she also has a spc that she uses occasional (not since surgery). Pt reports compliance with HEP from hospital, performing exercises 1-2x/day. She does report some tingling in her LLE down to her foot, but this was occuring prior to her TKA. Her main compliants are pain, weakness, swelling, stiffness, and poor sleep since her surgery. Future Testing and Treatments Planned Follow up 04/[address] Patton Treatment Goals Patient/Caregiver Goals Decrease pain, improve knee motion and strength, be able to sleep without discomfort Prior Functional Status Baseline Function- ADL's Independent Baseline Function- Mobility Independent Baseline Function- Gait FWW or spc for balance; up to 1/4 mi for gait distance Baseline Function- Recreation/Hobbies Gardening (hands and knees) Baseline Function- Other Stairs (no issue) Current Functional Impairments (Reported) Functional Limitations- Mobility/Gait No stairs due to limited motion and pain, no more than household ambulation Functional Limitations- Recreation/ Unable to garden Hobbies PT-OP-C Subjective Start: 04/28/23 10:41 Freq: Status: Active Protocol: Document 05/15/23 10:35 NM (Rec: 05/15/23 11:46 NM [id number]) OP-PT Subjective Patient Comments Patient Comments Pt presents with 5-6/10 L knee pain. She is having more soreness on medial to incision . Presents with more swelling than in previous sessions, but pt reports that she moved a lot in her sleep last night. She is now 4 weeks post op. PT-OP-D Balance Start: 04/28/23 10:41 Freq: Status: Active Protocol: Document 04/28/23 10:42 NM (Rec: 04/28/23 11:56 NM [id number]) OP-PT Balance Assessment Sitting Balance Static Sitting Balance Ability Normal Dynamic Sitting Balance Ability Normal Standing Balance Static Standing Balance Ability Good Dynamic Standing Balance Ability Fair Device Used FWW Standing Balance Comments Occasional CGA to steady during gait, changing JUVENCIO Denise Fall Scale Copyright Permission PT-OP-E Functional Tests Start: 04/28/23 10:41 Freq: Status: Active Protocol: Document 04/28/23 10:42 NM (Rec: 04/28/23 11:40 NM [id number]) Functional Tests Timed Up and Go (TUG) Score 41.5 sec Comments FWW, SBA PT-OP-F Manual Assessment Start: 04/28/23 10:41 Freq: Status: Active Protocol: Document 04/28/23 10:42 NM (Rec: 04/28/23 11:40 NM [id number]) Manual Assessments Soft Tissue Assessment Soft Tissue Mobility Assessment Soft tissue restrictions of L hamstring. Edema in L ankle, knee and calf. Will need scar mobilization to prevent adhesions once scar is closed and healed. Joint Mobility Assessment Joint Mobility Assessment Empty end feel with PROM, limited mobility PT-OP-G Mobility & Gait Start: 04/28/23 10:41 Freq: Status: Active Protocol: Document 04/28/23 10:42 NM (Rec: 04/28/23 11:40 NM [id number]) OP Gait Assessment Gait Gait Assistance Required: Standby Assistance Distance (Feet) 200 Able to Maintain Weight Bearing Status Yes During Gait Assistive Devices Assistive Device Gait Belt,Straight Cane,Front Wheeled Walker Gait Deviations General Gait Pattern Antalgic,Decreased Stride Length,Step-to Gait Factors Limiting Gait Function Factors Limiting Gait Function Decreased Activity Tolerance, Decreased Strength,Limited Range of Motion,Pain,Poor Balance Comments Gait Comments Primarily uses FWW for gait. Began using FWW for gait prior in Jun 2022 prior to surgery due to poor balance. PT-OP-H Neuro Start: 04/28/23 10:41 Freq: Status: Active Protocol: Document 04/28/23 10:42 NM (Rec: 04/28/23 11:40 NM [id number]) Sensation Evaluation Gross Sensation Gross Sensation WNL Comments Summary Comments LLE intact to light touch sensation in all dermatomes. PT-OP-J Posture/Palpation/Skin Start: 04/28/23 10:41 Freq: Status: Active Protocol: Document 04/28/23 10:42 NM (Rec: 04/28/23 11:40 NM [id number]) Posture Evaluation Position Standing Evaluation View Posterior Pelvis Posture Anteriorly Tilted Weight Distribution Weight Shifted Right,Decreased Wt.Bear on (L) Hip Posture (L) Externally Rotated Knee Posture (L) Genu Valgus,(R) Genu Valgus Patellar Posture (R) Superior Palpation Assessment Location L knee Palpation Location posterior knee, posterior calf , lateral and medial knee Palpation Findings Edema,Soft Tissue Tightness, Tenderness Palpation Details Tenderness and edema along posterior knee and calf. No sign of DVT Tenderness and edema along medial and lateral knee near patella, femoral condyles near joint line Skin Assessment Edema Assessment L ankle Edema Type Non-Pitting Edema Degree 2+ Edema Appearance Discolored,Puffy Circumference Measurement L knee Location 5 cm above patella (60cm), sub patella (51 cm), 10 cm below patella (49 cm) Comments L malleoli (27 cm) with excess on lateral side, at patella ( 56.5 cm) Incisional Assessment Incision Appearance/Comments Bandage is CDI. Still wrapped so could not formally assess incision. No signs of infection around bandage. Will assess further once bandage removed PT-OP-K Range of Motion Start: 04/28/23 10:41 Freq: Status: Active Protocol: Document 04/28/23 10:42 NM (Rec: 04/28/23 11:40 NM [id number]) Knee Goniometric Range of Motion Knee Right Knee ROM WFL No Patient Position Supine Flexion Active (degrees) 120 Flexion Passive (degrees) 125 Extension Active (degrees) 0 Left Knee ROM WFL No Patient Position Supine Flexion Active (degrees) 80 Flexion Passive (degrees) 80 Extension Active (degrees) 10 Comments lacking 10 deg of extension. Pain with knee flex and extension PT-OP-M Strength Start: 04/28/23 10:41 Freq: Status: Active Protocol: Document 04/28/23 10:42 NM (Rec: 04/28/23 11:40 NM [id number]) Hip Strength Hip Manual Muscle Testing Right Flexion (L2) 4- Good- Abduction 4- Good- Adduction 4- Good- External Rotation 3+ Fair+ Internal Rotation 3+ Fair+ Left Flexion (L2) 3+ Fair+ Abduction 3+ Fair+ External Rotation 3+ Fair+ Internal Rotation 3+ Fair+ Comments Assessed in sitting due to knee pain Knee Strength Knee Manual Muscle Testing Right Flexion (S2) 4 Good Extension (L3) 4+ Good+ Left Flexion (S2) 3 Fair Extension (L3) 3 Fair Comments No resistance with MMT due to pain with AROM against gravity . PT-OP-Q Treatments Start: 04/28/23 10:41 Freq: Status: Active Protocol: Document 05/15/23 10:35 NM (Rec: 05/15/23 11:46 NM [id number]) Cardio Equipment Recumbent Bicycle Duration (Minutes) 5 Resistance 0 Seat Position 5 Other full cycle, moves hip into ER to complete cycle; cues to prevent hip ER Therapeutic Exercises Supine Exercises bridge Side bilateral Reps/Minutes 2x10x3 Comments cues to put weight through heels; RLE a little closer to buttocks Quad Set Side left Equipment Used shoes off Reps/Minutes 10x5 Comments improved quad contraction; manual cue into PT hand Sitting Exercises LAQ Sitting Exercise Name Trialed Side left Reps/Minutes 1x10x2 Comments unable to reach TKE Knee Flexion Stretch Sitting Exercise Name RLE crossed over LLE to assist with stretch Side left Reps/Minutes 10x10 Comments added to HEP Manual Therapy Treatment Soft Tissue Mobilization Scar mobilization Body Location anterior knee Mobilization Type Cross-Friction,Myofascial Release,Rolling,Strumming Intensity/Depth Moderate Body Position sitting, supine Comments Mod scar adhesions to underlying skin and fascia. Scar mobilization with lifting , rolling, vertical/horizontal along scar, and twisting. PT instructed pt on use of lotion ., mobilizing at home. Joint Mobilizations Patella Direction superior/inferior, medial/ lateral Grade III Body Position Supine Reps/Duration 90 ea direction Comments To improve knee ext and flex mobility Manual Techniques PROM Body Position Supine Reps/Duration 30x8 Comments Knee flex in supine. Able to flex passively up to 110 deg, pt able to flex 100 actively. Knee ext in supine, stretching with posterior force on femur and tibia with quad contraction to assist in extension mobilization. Able to get up to -4 deg ext. Due to swelling, unable to ext further at this time. Pt able to tolerate with min-mod pain (<5/10) PT-OP-T Assessment and Plan Start: 04/28/23 10:41 Freq: Status: Active Protocol: Document 05/15/23 10:35 NM (Rec: 05/15/23 11:46 NM [id number]) Physical Therapy Assessment Goals Seven Impairment gait Impairment Unable to complete 6 MWT at IE Short Term Goal (STG) Pt will be able to complete a 6 MWT using LRAD in order to demo improved gait mechanics and activity tolerance for community ambulation. STG Duration 6 weeks Grain Sampler Goal (LTG) Pt will improve 6 MWT distance by at least 100 ft using LRAD in order to demo improved gait mechanics and activity tolerance for community ambulation. LTG Duration 12 weeks Six Impairment function Impairment LEFS 10/80 Short Term Goal (STG) Pt will improve LEFS score by at least 9 points (MCID) in order to demo improved activity tolerance and strength. STG Duration 6 weeks Grain Sampler Goal (LTG) Pt will improve LEFS score by at least 18 points (2 MCID) in order to demo improved activity tolerance and strength. LTG Duration 12 weeks Five Impairment Balance, function Impairment TUG 41.5 sec with FWW Short Term Goal (STG) Pt will decrease TUG score time to at least 30 seconds or less using LRAD in order to demo improved balance during gait and transfers, to decrease fall risk. STG Duration 6 weeks Grain Sampler Goal (LTG) Pt will decrease TUG score time to at least 15 seconds or less using LRAD in order to demo improved balance during gait and transfers, to decrease fall risk. LTG Duration 12 weeks Four Impairment strength Impairment Knee flex 3/5 Short Term Goal (STG) Pt will improve L knee flex strength to at least 4-/5 in order to perform stairs and for propulsion during gait. STG Duration 6 weeks Grain Sampler Goal (LTG) Pt will improve L knee flex strength to at least 4+/5 in order to perform stairs and for propulsion during gat. LTG Duration 12 weeks Three Impairment Strength Impairment Knee ext 3/5 Short Term Goal (STG) Pt will improve L knee ext strength to at least 4-/5 in order to demo improved quad control for stability and TKE for gait. STG Duration 6 weeks Snf Goal (LTG) Pt will improve L knee ext strength to at least 4+/5 in order to demo improved quad control for stability and TKE for gait. LTG Duration 12 weeks Two Impairment ROM Impairment Knee ext 10 deg AROM (lacking) Short Term Goal (STG) Pt will improve L knee ext to at least 5 deg AROM in order to reach terminal knee extension during gait and improve knee stability during stairs/gait. STG Duration 6 weeks Snf Goal (LTG) Pt will improve L knee ext to at least 0 deg in order to reach terminal knee extension during gait and improve knee stabiltiy during stairs/gait. LTG Duration 12 weeks One Impairment ROM Impairment Knee flex 80 deg AROM Short Term Goal (STG) Pt will improve L knee flex to at least 100 deg AROM in order to demo improved knee flex ROM for stairs and gait. STG Duration 6 weeks Snf Goal (LTG) Pt will improve L knee flex to at least 115 deg AROM in order to demo improved knee flex ROM for stairs, gait, and to be comparable to RLE. LTG Duration 12 weeks Assessment Summary Assessment Pt is now 4 weeks post-op. Compared to previous session, pt with increased swelling in L knee (patellar 51.5 cm, mid calf 47 cm, mid thigh 55 cm). She reports not sleeping well and tossing during the night. No increased redness, increased temperature, tenderness in post calf or thigh, or other signs of DVT. Pt educated again on DVT signs /symptoms and instructed to seek emergency care of symptoms appear. In last session, increased number of exercises and intensity, which may also contribute to increased swelling. Pt educated on elevating LLE under calf/foot, continued icing, compression socks during day to decreased swelling; pt reports that she just bought compression socks and will try them today. Trialed recumbent bike today; pt able to make full cycle with knee flex, however she ER at hip and was cued to keep hip in neutral. Also trialed LAQ, but pt demos ext lag due to decreased quad activation. Continued with bridges and reviewed seated knee flex stretch. Will continue to progress knee strength and ROM as tolerated. Majority of tmt session consisted of scar mobilization, patellar mobilization, and AROM/PROM into knee flex/ext. Pt with mod scar adhesions; educated on scar mobilization at home ( pt declined HO). She is able to actively reach 100 deg knee flex with pain, 110 deg passively with 5/10 pain; still -4 deg knee ext with quad activation. Pt would benefit from skilled PT to address impairments in L knee strength, ROM, endurance, gait , and balance in order to decrease fall risk, improve QOL, decrease pain symptoms, and return to PLOF. Physical Therapy Plan Frequency and Duration Frequency of Treatment 2x/Week Duration of treatment (weeks) 12 Plan of Care Start Date 04/28/23 Plan of Care End Date 07/21/23 Therapeutic Interventions Therapeutic Interventions Aquatic Therapy,Balance Training,Gait Training,Home Exercise Program,Joint Mobilizations,Manual Therapy, Neuromuscular Re-education, Patient/Caregiver Education, Self-Care/Home Management,Soft Tissue Mobilization,Taping, Therapeutic Activities, Therapeutic Exercises Modalities Cold Pack/Ice Massage,Electric Stimulation,Hot Packs, Iontophoresis,Ultrasound, Vasopneumatic Devices Next Visit Focus/Plan Next Note Type Treatment Note Next Visit Plan Gentle ROM, swelling mgmt, begin e-stim with quad set. Continue hip/knee strengthening, squat. Continue bike. Initiate gait with spc as tolerated Manual: soft tissue, no scar mgmt yet, gentle PROM with flex/ext Edu: scar tissue formation, sitting posture (no knee flex) - review
--- NOTE | 2023-05-21 12:13 | PT.OTN ---
Current Diagnoses Unilateral primary osteoarthritis, left knee (05/21/23) Physical Therapy Treatment Note PT-OP-A Visit Information Start: 04/28/23 10:41 Freq: Status: Active Protocol: Document 05/21/23 10:35 SW (Rec: 05/21/23 11:33 SW [id number]) Out-Patient Physical Therapy Visit Information Visit Information Visit Type Treatment Note Visit Note DOS: 04/18/23 Visit Start Time 10:32 Visit Stop Time 11:16 Total Visit Minutes 44 Visit Number 7 Number of DRAWER WAXER Visits 1 Precautions Precautions Post-op 04/18/23 (TKA) Fall risk PT-OP-B Current Condition Start: 04/28/23 10:41 Freq: Status: Active Protocol: Document 04/28/23 10:42 NM (Rec: 04/28/23 11:40 NM [id number]) Current Condition History of Current Condition Onset Date 04/18/23 Current Complaints pain, swelling, sleep History of Current Condition Pt presents to clinic with FWW s/p L TKA on 04/19. She is seeing Dr. Patton for her knee. Currently, pt still has her post-op dressings still on and is WBAT with a FWW. Pt has B knee OA, which led to the replacement. She had no pre-op PT. Prior to surgery, she was able to ambulate up to 1/4 mi due to pain, which is a decrease from her baseline which was 1 mi. She is planning on having the R knee replaced in a few months. Pt has steps leading up to her home which is covered by a ramp. She used a FWW for gait prior to surgery due to feeling like she had poor balance; she also has a spc that she uses occasional (not since surgery). Pt reports compliance with HEP from hospital, performing exercises 1-2x/day. She does report some tingling in her LLE down to her foot, but this was occuring prior to her TKA. Her main compliants are pain, weakness, swelling, stiffness, and poor sleep since her surgery. Future Testing and Treatments Planned Follow up 04/[address] Patton Treatment Goals Patient/Caregiver Goals Decrease pain, improve knee motion and strength, be able to sleep without discomfort Prior Functional Status Baseline Function- ADL's Independent Baseline Function- Mobility Independent Baseline Function- Gait FWW or spc for balance; up to 1/4 mi for gait distance Baseline Function- Recreation/Hobbies Gardening (hands and knees) Baseline Function- Other Stairs (no issue) Current Functional Impairments (Reported) Functional Limitations- Mobility/Gait No stairs due to limited motion and pain, no more than household ambulation Functional Limitations- Recreation/ Unable to garden Hobbies PT-OP-C Subjective Start: 04/28/23 10:41 Freq: Status: Active Protocol: Document 05/21/23 10:35 SW (Rec: 05/21/23 11:33 SW [id number]) OP-PT Subjective Patient Comments Patient Comments Pt reports about 95% weight bearing into L knee, a little bit of fear and a little bit of pain preventing the full weight bearing. pn 09/02 currently. PT-OP-D Balance Start: 04/28/23 10:41 Freq: Status: Active Protocol: Document 04/28/23 10:42 NM (Rec: 04/28/23 11:56 NM [id number]) OP-PT Balance Assessment Sitting Balance Static Sitting Balance Ability Normal Dynamic Sitting Balance Ability Normal Standing Balance Static Standing Balance Ability Good Dynamic Standing Balance Ability Fair Device Used FWW Standing Balance Comments Occasional CGA to steady during gait, changing JUVENCIO Denise Fall Scale Copyright Permission PT-OP-E Functional Tests Start: 04/28/23 10:41 Freq: Status: Active Protocol: Document 04/28/23 10:42 NM (Rec: 04/28/23 11:40 NM [id number]) Functional Tests Timed Up and Go (TUG) Score 41.5 sec Comments FWW, SBA PT-OP-F Manual Assessment Start: 04/28/23 10:41 Freq: Status: Active Protocol: Document 04/28/23 10:42 NM (Rec: 04/28/23 11:40 NM [id number]) Manual Assessments Soft Tissue Assessment Soft Tissue Mobility Assessment Soft tissue restrictions of L hamstring. Edema in L ankle, knee and calf. Will need scar mobilization to prevent adhesions once scar is closed and healed. Joint Mobility Assessment Joint Mobility Assessment Empty end feel with PROM, limited mobility PT-OP-G Mobility & Gait Start: 04/28/23 10:41 Freq: Status: Active Protocol: Document 04/28/23 10:42 NM (Rec: 04/28/23 11:40 NM [id number]) OP Gait Assessment Gait Gait Assistance Required: Standby Assistance Distance (Feet) 200 Able to Maintain Weight Bearing Status Yes During Gait Assistive Devices Assistive Device Gait Belt,Straight Cane,Front Wheeled Walker Gait Deviations General Gait Pattern Antalgic,Decreased Stride Length,Step-to Gait Factors Limiting Gait Function Factors Limiting Gait Function Decreased Activity Tolerance, Decreased Strength,Limited Range of Motion,Pain,Poor Balance Comments Gait Comments Primarily uses FWW for gait. Began using FWW for gait prior in Jun 2022 prior to surgery due to poor balance. PT-OP-H Neuro Start: 04/28/23 10:41 Freq: Status: Active Protocol: Document 04/28/23 10:42 NM (Rec: 04/28/23 11:40 NM [id number]) Sensation Evaluation Gross Sensation Gross Sensation WNL Comments Summary Comments LLE intact to light touch sensation in all dermatomes. PT-OP-J Posture/Palpation/Skin Start: 04/28/23 10:41 Freq: Status: Active Protocol: Document 04/28/23 10:42 NM (Rec: 04/28/23 11:40 NM [id number]) Posture Evaluation Position Standing Evaluation View Posterior Pelvis Posture Anteriorly Tilted Weight Distribution Weight Shifted Right,Decreased Wt.Bear on (L) Hip Posture (L) Externally Rotated Knee Posture (L) Genu Valgus,(R) Genu Valgus Patellar Posture (R) Superior Palpation Assessment Location L knee Palpation Location posterior knee, posterior calf , lateral and medial knee Palpation Findings Edema,Soft Tissue Tightness, Tenderness Palpation Details Tenderness and edema along posterior knee and calf. No sign of DVT Tenderness and edema along medial and lateral knee near patella, femoral condyles near joint line Skin Assessment Edema Assessment L ankle Edema Type Non-Pitting Edema Degree 2+ Edema Appearance Discolored,Puffy Circumference Measurement L knee Location 5 cm above patella (60cm), sub patella (51 cm), 10 cm below patella (49 cm) Comments L malleoli (27 cm) with excess on lateral side, at patella ( 56.5 cm) Incisional Assessment Incision Appearance/Comments Bandage is CDI. Still wrapped so could not formally assess incision. No signs of infection around bandage. Will assess further once bandage removed PT-OP-K Range of Motion Start: 04/28/23 10:41 Freq: Status: Active Protocol: Document 04/28/23 10:42 NM (Rec: 04/28/23 11:40 NM [id number]) Knee Goniometric Range of Motion Knee Right Knee ROM WFL No Patient Position Supine Flexion Active (degrees) 120 Flexion Passive (degrees) 125 Extension Active (degrees) 0 Left Knee ROM WFL No Patient Position Supine Flexion Active (degrees) 80 Flexion Passive (degrees) 80 Extension Active (degrees) 10 Comments lacking 10 deg of extension. Pain with knee flex and extension PT-OP-M Strength Start: 04/28/23 10:41 Freq: Status: Active Protocol: Document 04/28/23 10:42 NM (Rec: 04/28/23 11:40 NM [id number]) Hip Strength Hip Manual Muscle Testing Right Flexion (L2) 4- Good- Abduction 4- Good- Adduction 4- Good- External Rotation 3+ Fair+ Internal Rotation 3+ Fair+ Left Flexion (L2) 3+ Fair+ Abduction 3+ Fair+ External Rotation 3+ Fair+ Internal Rotation 3+ Fair+ Comments Assessed in sitting due to knee pain Knee Strength Knee Manual Muscle Testing Right Flexion (S2) 4 Good Extension (L3) 4+ Good+ Left Flexion (S2) 3 Fair Extension (L3) 3 Fair Comments No resistance with MMT due to pain with AROM against gravity . PT-OP-Q Treatments Start: 04/28/23 10:41 Freq: Status: Active Protocol: Document 05/21/23 10:35 SW (Rec: 05/21/23 11:33 SW [id number]) Cardio Equipment Recumbent Bicycle Duration (Minutes) 5 Resistance 0 Seat Position 5 Other back and forth; cues to push into max knee flex, prevent hip ER Therapeutic Exercises Supine Exercises SLR Side left Equipment Used pillow under foot (add 1 in) to assist with lift; quad set Reps/Minutes 1x10 bridge Side bilateral Reps/Minutes 2x10x3 Comments cues to put weight through heels; RLE a little closer to buttocks Short arc quad Supine Exercise Name to improve quad activation, knee ext Side left Equipment Used large blue kickball under knee Reps/Minutes 10x3 Comments improved quad contraction Knee ext stretch Supine Exercise Name sustained hold with bolster under ankle Side left Resistance 5# Equipment Used bolster under ankle Reps/Minutes 2 min Comments for knee ext Quad Set Side left Equipment Used heel propped on wedge Reps/Minutes 10x5 Comments improved quad contraction; tactile facilitation Sitting Exercises Knee Flexion Stretch Sitting Exercise Name Scoot into increased flexion Side left Reps/Minutes 3x30 Comments cues to breath into stretch for tissue relaxation Standing Exercises Step up Standing Exercise Name Step Up Side bilateral Equipment Used 4 step, [employer] Reps/Minutes x10 ea Comments cues for mechanics, weight bearing Manual Therapy Treatment Soft Tissue Mobilization Scar mobilization Body Location anterior knee Mobilization Type Cross-Friction,Myofascial Release,Rolling,Strumming Intensity/Depth Moderate Body Position sitting, supine Comments Mod scar adhesions to underlying skin and fascia. Scar mobilization with lifting , rolling, vertical/horizontal along scar, and twisting. PT instructed pt on use of lotion ., mobilizing at home. Joint Mobilizations Patella Direction superior/inferior, medial/ lateral Grade III Body Position Supine Reps/Duration 90 ea direction Comments To improve knee ext and flex mobility Self-Care/Home Management Treatment Education Patient Education Safety Caregiver Education Educated pt on Stability vs mobility with AD, and on pt safety to prevent fall. PT-OP-T Assessment and Plan Start: 04/28/23 10:41 Freq: Status: Active Protocol: Document 05/21/23 10:35 (Rec: 05/21/23 12:01 [id number]) Physical Therapy Assessment Goals Seven Impairment gait Impairment Unable to complete 6 MWT at IE Short Term Goal (STG) Pt will be able to complete a 6 MWT using LRAD in order to demo improved gait mechanics and activity tolerance for community ambulation. STG Duration 6 weeks Mcc Goal (LTG) Pt will improve 6 MWT distance by at least 100 ft using LRAD in order to demo improved gait mechanics and activity tolerance for community ambulation. LTG Duration 12 weeks Six Impairment function Impairment LEFS 10/80 Short Term Goal (STG) Pt will improve LEFS score by at least 9 points (MCID) in order to demo improved activity tolerance and strength. STG Duration 6 weeks Mcc Goal (LTG) Pt will improve LEFS score by at least 18 points (2 MCID) in order to demo improved activity tolerance and strength. LTG Duration 12 weeks Five Impairment Balance, function Impairment TUG 41.5 sec with FWW Short Term Goal (STG) Pt will decrease TUG score time to at least 30 seconds or less using LRAD in order to demo improved balance during gait and transfers, to decrease fall risk. STG Duration 6 weeks Senior Executive Compensation Analyst Goal (LTG) Pt will decrease TUG score time to at least 15 seconds or less using LRAD in order to demo improved balance during gait and transfers, to decrease fall risk. LTG Duration 12 weeks Four Impairment strength Impairment Knee flex 3/5 Short Term Goal (STG) Pt will improve L knee flex strength to at least 4-/5 in order to perform stairs and for propulsion during gait. STG Duration 6 weeks Senior Executive Compensation Analyst Goal (LTG) Pt will improve L knee flex strength to at least 4+/5 in order to perform stairs and for propulsion during gat. LTG Duration 12 weeks Three Impairment Strength Impairment Knee ext 3/5 Short Term Goal (STG) Pt will improve L knee ext strength to at least 4-/5 in order to demo improved quad control for stability and TKE for gait. STG Duration 6 weeks Senior Executive Compensation Analyst Goal (LTG) Pt will improve L knee ext strength to at least 4+/5 in order to demo improved quad control for stability and TKE for gait. LTG Duration 12 weeks Two Impairment ROM Impairment Knee ext 10 deg AROM (lacking) Short Term Goal (STG) Pt will improve L knee ext to at least 5 deg AROM in order to reach terminal knee extension during gait and improve knee stability during stairs/gait. STG Duration 6 weeks Senior Executive Compensation Analyst Goal (LTG) Pt will improve L knee ext to at least 0 deg in order to reach terminal knee extension during gait and improve knee stabiltiy during stairs/gait. LTG Duration 12 weeks One Impairment ROM Impairment Knee flex 80 deg AROM Short Term Goal (STG) Pt will improve L knee flex to at least 100 deg AROM in order to demo improved knee flex ROM for stairs and gait. STG Duration 6 weeks Senior Executive Compensation Analyst Goal (LTG) Pt will improve L knee flex to at least 115 deg AROM in order to demo improved knee flex ROM for stairs, gait, and to be comparable to RLE. LTG Duration 12 weeks Assessment Summary Assessment Continued scar mobilization to decrease adhesions and increase mobility. Pt unable to complete a full revolution on bike without hip ER compensation, switched to back and forth pushing into maximum knee flexion without compensation. Added step ups on 4 step today in PT to assist with functional strengthening in LLE, [employer] prn, close SBA, pt hesitant at first but improved mechanics with decreased fear with repetition, gait belt donned. Discussed stability vs mobility with AD, pt inquiring about 4ww at EOS today, may benefit from gait training next session to assess pt safety with AD. Pt tolerated session well, with decreased symptoms post therapeutic exercises. Pt plans to ice post PT session today to assist with swelling. Physical Therapy Plan Frequency and Duration Frequency of Treatment 2x/Week Duration of treatment (weeks) 12 Plan of Care Start Date 04/28/23 Plan of Care End Date 07/21/23 Therapeutic Interventions Therapeutic Interventions Aquatic Therapy,Balance Training,Gait Training,Home Exercise Program,Joint Mobilizations,Manual Therapy, Neuromuscular Re-education, Patient/Caregiver Education, Self-Care/Home Management,Soft Tissue Mobilization,Taping, Therapeutic Activities, Therapeutic Exercises Modalities Cold Pack/Ice Massage,Electric Stimulation,Hot Packs, Iontophoresis,Ultrasound, Vasopneumatic Devices Next Visit Focus/Plan Next Note Type Treatment Note Next Visit Plan Gentle ROM, swelling mgmt, begin e-stim with quad set. Continue hip/knee strengthening, squat. Continue bike. Initiate gait with spc as tolerated Manual: soft tissue, no scar mgmt yet, gentle PROM with flex/ext Edu: scar tissue formation, sitting posture (no knee flex) - review
--- NOTE | 2023-05-28 15:58 | PT.OTN ---
Current Diagnoses Unilateral primary osteoarthritis, left knee (05/28/23) Physical Therapy Treatment Note PT-OP-A Visit Information Start: 04/28/23 10:41 Freq: Status: Active Protocol: Document 05/28/23 12:58 SW (Rec: 05/28/23 13:47 SW [id number]) Out-Patient Physical Therapy Visit Information Visit Information Visit Type Treatment Note Visit Note DOS: 04/18/23 Visit Start Time 13:01 Visit Stop Time 13:45 Total Visit Minutes 44 Visit Number 8 Number of TIP TESTER Visits 2 Precautions Precautions Post-op 04/18/23 (TKA) Fall risk PT-OP-B Current Condition Start: 04/28/23 10:41 Freq: Status: Active Protocol: Document 04/28/23 10:42 NM (Rec: 04/28/23 11:40 NM [id number]) Current Condition History of Current Condition Onset Date 04/18/23 Current Complaints pain, swelling, sleep History of Current Condition Pt presents to clinic with FWW s/p L TKA on 04/19. She is seeing Dr. Patton for her knee. Currently, pt still has her post-op dressings still on and is WBAT with a FWW. Pt has B knee OA, which led to the replacement. She had no pre-op PT. Prior to surgery, she was able to ambulate up to 1/4 mi due to pain, which is a decrease from her baseline which was 1 mi. She is planning on having the R knee replaced in a few months. Pt has steps leading up to her home which is covered by a ramp. She used a FWW for gait prior to surgery due to feeling like she had poor balance; she also has a spc that she uses occasional (not since surgery). Pt reports compliance with HEP from hospital, performing exercises 1-2x/day. She does report some tingling in her LLE down to her foot, but this was occuring prior to her TKA. Her main compliants are pain, weakness, swelling, stiffness, and poor sleep since her surgery. Future Testing and Treatments Planned Follow up 04/[address] Patton Treatment Goals Patient/Caregiver Goals Decrease pain, improve knee motion and strength, be able to sleep without discomfort Prior Functional Status Baseline Function- ADL's Independent Baseline Function- Mobility Independent Baseline Function- Gait FWW or spc for balance; up to 1/4 mi for gait distance Baseline Function- Recreation/Hobbies Gardening (hands and knees) Baseline Function- Other Stairs (no issue) Current Functional Impairments (Reported) Functional Limitations- Mobility/Gait No stairs due to limited motion and pain, no more than household ambulation Functional Limitations- Recreation/ Unable to garden Hobbies PT-OP-C Subjective Start: 04/28/23 10:41 Freq: Status: Active Protocol: Document 05/28/23 12:58 SW (Rec: 05/28/23 13:47 SW [id number]) OP-PT Subjective Patient Comments Patient Comments Pt reports being able to turn over at night, less painful more uncomfortable. Pt reports able to get into house with two steps, easier going up then getting down. PT-OP-D Balance Start: 04/28/23 10:41 Freq: Status: Active Protocol: Document 04/28/23 10:42 NM (Rec: 04/28/23 11:56 NM [id number]) OP-PT Balance Assessment Sitting Balance Static Sitting Balance Ability Normal Dynamic Sitting Balance Ability Normal Standing Balance Static Standing Balance Ability Good Dynamic Standing Balance Ability Fair Device Used FWW Standing Balance Comments Occasional CGA to steady during gait, changing JUVENCIO Denise Fall Scale Copyright Permission PT-OP-E Functional Tests Start: 04/28/23 10:41 Freq: Status: Active Protocol: Document 04/28/23 10:42 NM (Rec: 04/28/23 11:40 NM [id number]) Functional Tests Timed Up and Go (TUG) Score 41.5 sec Comments FWW, SBA PT-OP-F Manual Assessment Start: 04/28/23 10:41 Freq: Status: Active Protocol: Document 04/28/23 10:42 NM (Rec: 04/28/23 11:40 NM [id number]) Manual Assessments Soft Tissue Assessment Soft Tissue Mobility Assessment Soft tissue restrictions of L hamstring. Edema in L ankle, knee and calf. Will need scar mobilization to prevent adhesions once scar is closed and healed. Joint Mobility Assessment Joint Mobility Assessment Empty end feel with PROM, limited mobility PT-OP-G Mobility & Gait Start: 04/28/23 10:41 Freq: Status: Active Protocol: Document 04/28/23 10:42 NM (Rec: 04/28/23 11:40 NM [id number]) OP Gait Assessment Gait Gait Assistance Required: Standby Assistance Distance (Feet) 200 Able to Maintain Weight Bearing Status Yes During Gait Assistive Devices Assistive Device Gait Belt,Straight Cane,Front Wheeled Walker Gait Deviations General Gait Pattern Antalgic,Decreased Stride Length,Step-to Gait Factors Limiting Gait Function Factors Limiting Gait Function Decreased Activity Tolerance, Decreased Strength,Limited Range of Motion,Pain,Poor Balance Comments Gait Comments Primarily uses FWW for gait. Began using FWW for gait prior in Jun 2022 prior to surgery due to poor balance. PT-OP-H Neuro Start: 04/28/23 10:41 Freq: Status: Active Protocol: Document 04/28/23 10:42 NM (Rec: 04/28/23 11:40 NM [id number]) Sensation Evaluation Gross Sensation Gross Sensation WNL Comments Summary Comments LLE intact to light touch sensation in all dermatomes. PT-OP-J Posture/Palpation/Skin Start: 04/28/23 10:41 Freq: Status: Active Protocol: Document 04/28/23 10:42 NM (Rec: 04/28/23 11:40 NM [id number]) Posture Evaluation Position Standing Evaluation View Posterior Pelvis Posture Anteriorly Tilted Weight Distribution Weight Shifted Right,Decreased Wt.Bear on (L) Hip Posture (L) Externally Rotated Knee Posture (L) Genu Valgus,(R) Genu Valgus Patellar Posture (R) Superior Palpation Assessment Location L knee Palpation Location posterior knee, posterior calf , lateral and medial knee Palpation Findings Edema,Soft Tissue Tightness, Tenderness Palpation Details Tenderness and edema along posterior knee and calf. No sign of DVT Tenderness and edema along medial and lateral knee near patella, femoral condyles near joint line Skin Assessment Edema Assessment L ankle Edema Type Non-Pitting Edema Degree 2+ Edema Appearance Discolored,Puffy Circumference Measurement L knee Location 5 cm above patella (60cm), sub patella (51 cm), 10 cm below patella (49 cm) Comments L malleoli (27 cm) with excess on lateral side, at patella ( 56.5 cm) Incisional Assessment Incision Appearance/Comments Bandage is CDI. Still wrapped so could not formally assess incision. No signs of infection around bandage. Will assess further once bandage removed PT-OP-K Range of Motion Start: 04/28/23 10:41 Freq: Status: Active Protocol: Document 04/28/23 10:42 NM (Rec: 04/28/23 11:40 NM [id number]) Knee Goniometric Range of Motion Knee Right Knee ROM WFL No Patient Position Supine Flexion Active (degrees) 120 Flexion Passive (degrees) 125 Extension Active (degrees) 0 Left Knee ROM WFL No Patient Position Supine Flexion Active (degrees) 80 Flexion Passive (degrees) 80 Extension Active (degrees) 10 Comments lacking 10 deg of extension. Pain with knee flex and extension PT-OP-M Strength Start: 04/28/23 10:41 Freq: Status: Active Protocol: Document 04/28/23 10:42 NM (Rec: 04/28/23 11:40 NM [id number]) Hip Strength Hip Manual Muscle Testing Right Flexion (L2) 4- Good- Abduction 4- Good- Adduction 4- Good- External Rotation 3+ Fair+ Internal Rotation 3+ Fair+ Left Flexion (L2) 3+ Fair+ Abduction 3+ Fair+ External Rotation 3+ Fair+ Internal Rotation 3+ Fair+ Comments Assessed in sitting due to knee pain Knee Strength Knee Manual Muscle Testing Right Flexion (S2) 4 Good Extension (L3) 4+ Good+ Left Flexion (S2) 3 Fair Extension (L3) 3 Fair Comments No resistance with MMT due to pain with AROM against gravity . PT-OP-Q Treatments Start: 04/28/23 10:41 Freq: Status: Active Protocol: Document 05/28/23 12:58 SW (Rec: 05/28/23 13:47 SW [id number]) Cardio Equipment Recumbent Bicycle Duration (Minutes) 5 Resistance 0 Seat Position 5 Other back and forth; cues to push into max knee flex, prevent hip ER Therapeutic Exercises Supine Exercises Short arc quad Supine Exercise Name to improve quad activation, knee ext Side left Equipment Used large blue kickball under knee Reps/Minutes 10x3 Comments improved quad contraction Knee ext stretch Supine Exercise Name sustained hold with bolster under ankle Side left Equipment Used bolster under ankle Reps/Minutes 2 min Comments for knee ext Quad Set Side left Equipment Used heel propped on wedge Reps/Minutes 10x5 Comments improved quad contraction; tactile facilitation Sitting Exercises LAQ Sitting Exercise Name Trialed Side left Reps/Minutes 1x10x2 Comments unable to reach TKE Knee Flexion Stretch Sitting Exercise Name Scoot into increased flexion Side left Reps/Minutes 3x30 Comments cues to breath into stretch for tissue relaxation Standing Exercises Step up Standing Exercise Name Step Up Side bilateral Equipment Used 6 step, COLD ROLL CATCHER Reps/Minutes x10 ea Comments cues for mechanics, weight bearing Other Exercises Sit to stand Other Exercise Name sit to stand- strengthening Gait Training Gait Activity FWW Description FWW>SPC Device Used FWW, SPC Level of Assistance SBA Surface Carpet Treatment Focus normalizing gait mechanics, AD training Manual Therapy Treatment Manual Techniques PROM Body Position Supine Reps/Duration 30x8 Comments Knee flex in supine. Knee ext in supine, stretching with posterior force on femur and tibia with quad contraction to assist in extension mobilization. PT-OP-T Assessment and Plan Start: 04/28/23 10:41 Freq: Status: Active Protocol: Document 05/28/23 12:58 SW (Rec: 05/28/23 13:47 SW [id number]) Physical Therapy Assessment Goals Seven Impairment gait Impairment Unable to complete 6 MWT at IE Short Term Goal (STG) Pt will be able to complete a 6 MWT using LRAD in order to demo improved gait mechanics and activity tolerance for community ambulation. STG Duration 6 weeks Physician Gynecologist Goal (LTG) Pt will improve 6 MWT distance by at least 100 ft using LRAD in order to demo improved gait mechanics and activity tolerance for community ambulation. LTG Duration 12 weeks Six Impairment function Impairment LEFS 10/80 Short Term Goal (STG) Pt will improve LEFS score by at least 9 points (MCID) in order to demo improved activity tolerance and strength. STG Duration 6 weeks Physician Gynecologist Goal (LTG) Pt will improve LEFS score by at least 18 points (2 MCID) in order to demo improved activity tolerance and strength. LTG Duration 12 weeks Five Impairment Balance, function Impairment TUG 41.5 sec with FWW Short Term Goal (STG) Pt will decrease TUG score time to at least 30 seconds or less using LRAD in order to demo improved balance during gait and transfers, to decrease fall risk. STG Duration 6 weeks Physician Gynecologist Goal (LTG) Pt will decrease TUG score time to at least 15 seconds or less using LRAD in order to demo improved balance during gait and transfers, to decrease fall risk. LTG Duration 12 weeks Four Impairment strength Impairment Knee flex 3/5 Short Term Goal (STG) Pt will improve L knee flex strength to at least 4-/5 in order to perform stairs and for propulsion during gait. STG Duration 6 weeks Physician Gynecologist Goal (LTG) Pt will improve L knee flex strength to at least 4+/5 in order to perform stairs and for propulsion during gat. LTG Duration 12 weeks Three Impairment Strength Impairment Knee ext 3/5 Short Term Goal (STG) Pt will improve L knee ext strength to at least 4-/5 in order to demo improved quad control for stability and TKE for gait. STG Duration 6 weeks Correction Goal (LTG) Pt will improve L knee ext strength to at least 4+/5 in order to demo improved quad control for stability and TKE for gait. LTG Duration 12 weeks Two Impairment ROM Impairment Knee ext 10 deg AROM (lacking) Short Term Goal (STG) Pt will improve L knee ext to at least 5 deg AROM in order to reach terminal knee extension during gait and improve knee stability during stairs/gait. STG Duration 6 weeks Physician Gynecologist Goal (LTG) Pt will improve L knee ext to at least 0 deg in order to reach terminal knee extension during gait and improve knee stabiltiy during stairs/gait. LTG Duration 12 weeks One Impairment ROM Impairment Knee flex 80 deg AROM Short Term Goal (STG) Pt will improve L knee flex to at least 100 deg AROM in order to demo improved knee flex ROM for stairs and gait. STG Duration 6 weeks Physician Gynecologist Goal (LTG) Pt will improve L knee flex to at least 115 deg AROM in order to demo improved knee flex ROM for stairs, gait, and to be comparable to RLE. LTG Duration 12 weeks Assessment Summary Assessment Progressed pt with sit to stands to address strengthening goals in a functional way. Continued stair training today to increase pt strength, pt now needs to ascend x 2 standard steps to get into home. Pt ambulated with improved gait mechanics with decreased reliance on FWW today, progressed pt with trial of gait with SPC, difficulty coordinating moving, antaligic gait present recommended pt continue to use walker for stability d/t lack of coordination and antalgic gait present with SPC and safety concern. Physical Therapy Plan Frequency and Duration Frequency of Treatment 2x/Week Duration of treatment (weeks) 12 Plan of Care Start Date 04/28/23 Plan of Care End Date 07/21/23 Therapeutic Interventions Therapeutic Interventions Aquatic Therapy,Balance Training,Gait Training,Home Exercise Program,Joint Mobilizations,Manual Therapy, Neuromuscular Re-education, Patient/Caregiver Education, Self-Care/Home Management,Soft Tissue Mobilization,Taping, Therapeutic Activities, Therapeutic Exercises Modalities Cold Pack/Ice Massage,Electric Stimulation,Hot Packs, Iontophoresis,Ultrasound, Vasopneumatic Devices Next Visit Focus/Plan Next Note Type Treatment Note Next Visit Plan Gentle ROM, swelling mgmt, begin e-stim with quad set. Continue hip/knee strengthening, squat. Continue bike. Initiate gait with spc as tolerated Manual: soft tissue, no scar mgmt yet, gentle PROM with flex/ext Edu: scar tissue formation, sitting posture (no knee flex) - review
--- NOTE | 2023-05-30 15:20 | PT.OTN ---
Current Diagnoses Unilateral primary osteoarthritis, left knee (05/30/23) Physical Therapy Treatment Note PT-OP-A Visit Information Start: 04/28/23 10:41 Freq: Status: Active Protocol: Document 05/30/23 13:54 NM (Rec: 05/30/23 15:00 NM [id number]) Out-Patient Physical Therapy Visit Information Visit Information Visit Type Progress Note Visit Note DOS: 04/18/23 Visit Start Time 13:45 Visit Stop Time 14:30 Total Visit Minutes 45 Visit Number 9 Evaluation Information Evaluation Date 04/28/23 Precautions Precautions Post-op 04/18/23 (TKA) Fall risk PT-OP-B Current Condition Start: 04/28/23 10:41 Freq: Status: Active Protocol: Document 04/28/23 10:42 NM (Rec: 04/28/23 11:40 NM [id number]) Current Condition History of Current Condition Onset Date 04/18/23 Current Complaints pain, swelling, sleep History of Current Condition Pt presents to clinic with FWW s/p L TKA on 04/19. She is seeing Dr. Patton for her knee. Currently, pt still has her post-op dressings still on and is WBAT with a FWW. Pt has B knee OA, which led to the replacement. She had no pre-op PT. Prior to surgery, she was able to ambulate up to 1/4 mi due to pain, which is a decrease from her baseline which was 1 mi. She is planning on having the R knee replaced in a few months. Pt has steps leading up to her home which is covered by a ramp. She used a FWW for gait prior to surgery due to feeling like she had poor balance; she also has a spc that she uses occasional (not since surgery). Pt reports compliance with HEP from hospital, performing exercises 1-2x/day. She does report some tingling in her LLE down to her foot, but this was occuring prior to her TKA. Her main compliants are pain, weakness, swelling, stiffness, and poor sleep since her surgery. Future Testing and Treatments Planned Follow up 04/[address] Patton Treatment Goals Patient/Caregiver Goals Decrease pain, improve knee motion and strength, be able to sleep without discomfort Prior Functional Status Baseline Function- ADL's Independent Baseline Function- Mobility Independent Baseline Function- Gait FWW or spc for balance; up to 1/4 mi for gait distance Baseline Function- Recreation/Hobbies Gardening (hands and knees) Baseline Function- Other Stairs (no issue) Current Functional Impairments (Reported) Functional Limitations- Mobility/Gait No stairs due to limited motion and pain, no more than household ambulation Functional Limitations- Recreation/ Unable to garden Hobbies PT-OP-C Subjective Start: 04/28/23 10:41 Freq: Status: Active Protocol: Document 05/30/23 13:54 NM (Rec: 05/30/23 15:00 NM [id number]) OP-PT Subjective Patient Comments Patient Comments Pt reports 3/10 L knee pain. She reports more soreness than pain. She has been compliant with HEP and scar massage. She sees her surgeon again on . PT-OP-D Balance Start: 04/28/23 10:41 Freq: Status: Active Protocol: Document 04/28/23 10:42 NM (Rec: 04/28/23 11:56 NM [id number]) OP-PT Balance Assessment Sitting Balance Static Sitting Balance Ability Normal Dynamic Sitting Balance Ability Normal Standing Balance Static Standing Balance Ability Good Dynamic Standing Balance Ability Fair Device Used FWW Standing Balance Comments Occasional CGA to steady during gait, changing JUVENCIO Denise Fall Scale Copyright Permission PT-OP-E Functional Tests Start: 04/28/23 10:41 Freq: Status: Active Protocol: Document 04/28/23 10:42 NM (Rec: 04/28/23 11:40 NM [id number]) Functional Tests Timed Up and Go (TUG) Score 41.5 sec Comments FWW, SBA PT-OP-F Manual Assessment Start: 04/28/23 10:41 Freq: Status: Active Protocol: Document 04/28/23 10:42 NM (Rec: 04/28/23 11:40 NM [id number]) Manual Assessments Soft Tissue Assessment Soft Tissue Mobility Assessment Soft tissue restrictions of L hamstring. Edema in L ankle, knee and calf. Will need scar mobilization to prevent adhesions once scar is closed and healed. Joint Mobility Assessment Joint Mobility Assessment Empty end feel with PROM, limited mobility PT-OP-G Mobility & Gait Start: 04/28/23 10:41 Freq: Status: Active Protocol: Document 04/28/23 10:42 NM (Rec: 04/28/23 11:40 NM [id number]) OP Gait Assessment Gait Gait Assistance Required: Standby Assistance Distance (Feet) 200 Able to Maintain Weight Bearing Status Yes During Gait Assistive Devices Assistive Device Gait Belt,Straight Cane,Front Wheeled Walker Gait Deviations General Gait Pattern Antalgic,Decreased Stride Length,Step-to Gait Factors Limiting Gait Function Factors Limiting Gait Function Decreased Activity Tolerance, Decreased Strength,Limited Range of Motion,Pain,Poor Balance Comments Gait Comments Primarily uses FWW for gait. Began using FWW for gait prior in Jun 2022 prior to surgery due to poor balance. PT-OP-H Neuro Start: 04/28/23 10:41 Freq: Status: Active Protocol: Document 04/28/23 10:42 NM (Rec: 04/28/23 11:40 NM [id number]) Sensation Evaluation Gross Sensation Gross Sensation WNL Comments Summary Comments LLE intact to light touch sensation in all dermatomes. PT-OP-J Posture/Palpation/Skin Start: 04/28/23 10:41 Freq: Status: Active Protocol: Document 04/28/23 10:42 NM (Rec: 04/28/23 11:40 NM [id number]) Posture Evaluation Position Standing Evaluation View Posterior Pelvis Posture Anteriorly Tilted Weight Distribution Weight Shifted Right,Decreased Wt.Bear on (L) Hip Posture (L) Externally Rotated Knee Posture (L) Genu Valgus,(R) Genu Valgus Patellar Posture (R) Superior Palpation Assessment Location L knee Palpation Location posterior knee, posterior calf , lateral and medial knee Palpation Findings Edema,Soft Tissue Tightness, Tenderness Palpation Details Tenderness and edema along posterior knee and calf. No sign of DVT Tenderness and edema along medial and lateral knee near patella, femoral condyles near joint line Skin Assessment Edema Assessment L ankle Edema Type Non-Pitting Edema Degree 2+ Edema Appearance Discolored,Puffy Circumference Measurement L knee Location 5 cm above patella (60cm), sub patella (51 cm), 10 cm below patella (49 cm) Comments L malleoli (27 cm) with excess on lateral side, at patella ( 56.5 cm) Incisional Assessment Incision Appearance/Comments Bandage is CDI. Still wrapped so could not formally assess incision. No signs of infection around bandage. Will assess further once bandage removed PT-OP-K Range of Motion Start: 04/28/23 10:41 Freq: Status: Active Protocol: Document 05/30/23 13:54 NM (Rec: 05/30/23 15:00 NM [id number]) Knee Goniometric Range of Motion Knee Left Knee ROM WFL No Patient Position Supine Flexion Active (degrees) 110 Flexion Passive (degrees) 112 Extension Active (degrees) 5 Extension Passive (degrees) 4 Comments 05/30/23: lacking 5 deg ext with active quad contraction @IE: flex 80 deg ext -10 deg PT-OP-M Strength Start: 04/28/23 10:41 Freq: Status: Active Protocol: Document 05/30/23 13:54 NM (Rec: 05/30/23 15:00 NM [id number]) Knee Strength Knee Manual Muscle Testing Left Flexion (S2) 4 Good Extension (L3) 4- Good- Comments @ IE: flex and ext 3/5 PT-OP-Q Treatments Start: 04/28/23 10:41 Freq: Status: Active Protocol: Document 05/30/23 13:54 NM (Rec: 05/30/23 15:00 NM [id number]) Therapeutic Exercises Supine Exercises Short arc quad Supine Exercise Name to improve quad activation, knee ext- during e-stim Side left Equipment Used large blue kickball under knee Reps/Minutes 2x12 with 5 hold Comments improved quad contraction Knee ext stretch Supine Exercise Name sustained hold with bolster under ankle Side left Equipment Used bolster under ankle Reps/Minutes 2 min Comments for knee ext Quad Set Supine Exercise Name with e-stim Side left Equipment Used small towel behind knee Reps/Minutes 2x12 with 5 hold Comments improved quad facilitation Sitting Exercises LAQ Sitting Exercise Name with e-stim Side left Resistance AROM Equipment Used sitting EOB Reps/Minutes 2x12 with 5 hold (2 min) Comments difficulty with TKE but improved quad contraction Knee Flexion Stretch Sitting Exercise Name Scoot into increased flexion Side left Reps/Minutes 3x30 Comments cues to breath into stretch for tissue relaxation Other Exercises Sit to stand Other Exercise Name no UE support from 20 plinth height Side bilateral Equipment Used FWW in front Reps/Minutes 2x8, rest between sets Comments cues for TKE in stance, fwd weight shift; demos improved glute strength Gait Training Gait Activity 6 MWT Device Used FWW Level of Assistance IND Surface stable- carpet, tile Distance/Duration 798 ft Treatment Focus endurance, nml gait, TKE Comments 1st attempt since IE. At beginning, demos decreased reliance on UE support using FWW, only for gait. Pt demos good heel > toe, available TKE , foot clearance. As pt fatigues, requires cues for equal step length, longer stance time LLE and L TKE. Normal Gait Device Used 4WW Level of Assistance close SBA Surface stable-carpet Distance/Duration 100 ft Treatment Focus decreased stability with AD ( trial) Comments Cues to keep 4WW closer to pt, also reminders to lock breaks prior to sit/stand for increased stability. Cont in future sessions Neuro Re-Education Treatment Other Activities TUG Details 21 seconds Comments using FWW PT-OP-R Modalities Start: 05/30/23 15:01 Freq: Status: Active Protocol: Document 05/30/23 13:54 NM (Rec: 05/30/23 15:07 NM [id number]) Electric Stimulation Electric Stimulation Biphasic Body Location L quad Duration (Minutes) 10 Intensity 18 Frequency 50 Pulse Width 300 Contraction Type Normal Ramp 1.0 Comments 5/5 cycle due to time to maximize contractions Performed in sitting (LAQ), supine (quad sets, SAQ). Skin normal color, intact/dry before, during, after tmt. Skin check after 3 min and at end of session. PT-OP-T Assessment and Plan Start: 04/28/23 10:41 Freq: Status: Active Protocol: Document 05/30/23 13:54 NM (Rec: 05/30/23 15:00 NM [id number]) Physical Therapy Assessment Goals Seven Impairment gait Impairment Unable to complete 6 MWT at IE Short Term Goal (STG) Pt will be able to complete a 6 MWT using LRAD in order to demo improved gait mechanics and activity tolerance for community ambulation. 05/30/23: 798 ft with FWW STG Duration 6 weeks MET Halfway Goal (LTG) Pt will improve 6 MWT distance by at least 100 ft using LRAD in order to demo improved gait mechanics and activity tolerance for community ambulation. LTG Duration 12 weeks Six Impairment function Impairment LEFS 1080 Short Term Goal (STG) Pt will improve LEFS score by at least 9 points (MCID) in order to demo improved activity tolerance and strength. 05/30/23: 53/80 STG Duration 6 weeks MET Hourly Sign Language Interpreter Goal (LTG) Pt will improve LEFS score by at least 18 points (2 MCID) in order to demo improved activity tolerance and strength. 05/30/23: 53/80 LTG Duration 12 weeks MET Five Impairment Balance, function Impairment TUG 41.5 sec with FWW Short Term Goal (STG) Pt will decrease TUG score time to at least 30 seconds or less using LRAD in order to demo improved balance during gait and transfers, to decrease fall risk. 05/30/23: 21 sec STG Duration 6 weeks MET Hourly Sign Language Interpreter Goal (LTG) Pt will decrease TUG score time to at least 15 seconds or less using LRAD in order to demo improved balance during gait and transfers, to decrease fall risk. LTG Duration 12 weeks Four Impairment strength Impairment Knee flex 3/5 Short Term Goal (STG) Pt will improve L knee flex strength to at least 4-/5 in order to perform stairs and for propulsion during gait. 05/30/23: 4/5 knee flex STG Duration 6 weeks MET Hourly Sign Language Interpreter Goal (LTG) Pt will improve L knee flex strength to at least 4+/5 in order to perform stairs and for propulsion during gat. LTG Duration 12 weeks Three Impairment Strength Impairment Knee ext 3/5 Short Term Goal (STG) Pt will improve L knee ext strength to at least 4-/5 in order to demo improved quad control for stability and TKE for gait. 05/30/23: 4-/5 MMT STG Duration 6 weeks MET Halfway Goal (LTG) Pt will improve L knee ext strength to at least 4+/5 in order to demo improved quad control for stability and TKE for gait. LTG Duration 12 weeks Two Impairment ROM Impairment Knee ext 10 deg AROM (lacking) Short Term Goal (STG) Pt will improve L knee ext to at least 5 deg AROM in order to reach terminal knee extension during gait and improve knee stability during stairs/gait. 05/30/23: -5 deg knee ext but demos decreased quad activation STG Duration 6 weeks MET Hourly Sign Language Interpreter Goal (LTG) Pt will improve L knee ext to at least 0 deg in order to reach terminal knee extension during gait and improve knee stabiltiy during stairs/gait. LTG Duration 12 weeks One Impairment ROM Impairment Knee flex 80 deg AROM Short Term Goal (STG) Pt will improve L knee flex to at least 100 deg AROM in order to demo improved knee flex ROM for stairs and gait. 05/30/23: 110 deg flex AROM STG Duration 6 weeks MET Halfway Goal (LTG) Pt will improve L knee flex to at least 115 deg AROM in order to demo improved knee flex ROM for stairs, gait, and to be comparable to RLE. LTG Duration 12 weeks Progress Towards Goals Progress Towards Goals Progressing Toward Goals Assessment Summary Assessment Continued with quad, glute, and hip strengthening. Trialed ambulating with 4WW today; pt demos good stability but requires cues to keep 4WW closer to body and reminders about using brakes. Pt able to complete 6MWT using FWW for 798 feet and decreased her TUG score by 20 sec. Pt knee flex AROM consistently 110 deg, but still lacking 5 deg of extension even with quad contraction. Trialed biphasic NMES today to improve quad contraction during quad sets, SAQ, LAQ. HEP: sit to stand from chair without UE support, LAQ AROM. Pt continues to have swelling in L knee. Pt has attended 8 sessions since IE. She is progressing toward her LTG, and has met several STG. She reports improvement in her ability to perform ADLs/IADLs. She continues to lack full knee flex/ext ROM and strength, but demos significant improvement since IE. Pt would benefit from skilled PT to address impairments in BLE strength and ROM, gait, balance, and endurance in order to decrease fall risk, improve functional strengthening, and return to PLOF. Physical Therapy Plan Frequency and Duration Frequency of Treatment 2x/Week Duration of treatment (weeks) 12 Plan of Care Start Date 04/28/23 Plan of Care End Date 07/21/23 Therapeutic Interventions Therapeutic Interventions Aquatic Therapy,Balance Training,Gait Training,Home Exercise Program,Joint Mobilizations,Manual Therapy, Neuromuscular Re-education, Patient/Caregiver Education, Self-Care/Home Management,Soft Tissue Mobilization,Taping, Therapeutic Activities, Therapeutic Exercises Modalities Cold Pack/Ice Massage,Electric Stimulation,Hot Packs, Iontophoresis,Ultrasound, Vasopneumatic Devices Next Visit Focus/Plan Next Note Type Treatment Note Next Visit Plan Next session: E-stim with quad set, SAQ, LAQ, SLR. Continue hip/knee strengthening, squat, stair training. Continue bike . Initiate gait with 4WW and spc as tolerated Manual: soft tissue, no scar mgmt yet, gentle PROM with flex/ext Edu: scar tissue formation, sitting posture (no knee flex) - review
--- NOTE | 2023-06-09 16:05 | PT.OTN ---
Current Diagnoses Unilateral primary osteoarthritis, left knee (06/09/23) Physical Therapy Treatment Note PT-OP-A Visit Information Start: 04/28/23 10:41 Freq: Status: Active Protocol: Document 06/09/23 12:17 NM (Rec: 06/09/23 13:01 NM [id number]) Out-Patient Physical Therapy Visit Information Visit Information Visit Type Treatment Note Visit Note DOS: 04/18/23 Visit Start Time 12:17 Visit Stop Time 13:00 Total Visit Minutes 43 Visit Number 10 Evaluation Information Evaluation Date 04/28/23 PT-OP-B Current Condition Start: 04/28/23 10:41 Freq: Status: Active Protocol: Document 04/28/23 10:42 NM (Rec: 04/28/23 11:40 NM [id number]) Current Condition History of Current Condition Onset Date 04/18/23 Current Complaints pain, swelling, sleep History of Current Condition Pt presents to clinic with FWW s/p L TKA on 04/19. She is seeing Dr. Patton for her knee. Currently, pt still has her post-op dressings still on and is WBAT with a FWW. Pt has B knee OA, which led to the replacement. She had no pre-op PT. Prior to surgery, she was able to ambulate up to 1/4 mi due to pain, which is a decrease from her baseline which was 1 mi. She is planning on having the R knee replaced in a few months. Pt has steps leading up to her home which is covered by a ramp. She used a FWW for gait prior to surgery due to feeling like she had poor balance; she also has a spc that she uses occasional (not since surgery). Pt reports compliance with HEP from hospital, performing exercises 1-2x/day. She does report some tingling in her LLE down to her foot, but this was occuring prior to her TKA. Her main compliants are pain, weakness, swelling, stiffness, and poor sleep since her surgery. Future Testing and Treatments Planned Follow up 04/[address] Patton Treatment Goals Patient/Caregiver Goals Decrease pain, improve knee motion and strength, be able to sleep without discomfort Prior Functional Status Baseline Function- ADL's Independent Baseline Function- Mobility Independent Baseline Function- Gait FWW or spc for balance; up to 1/4 mi for gait distance Baseline Function- Recreation/Hobbies Gardening (hands and knees) Baseline Function- Other Stairs (no issue) Current Functional Impairments (Reported) Functional Limitations- Mobility/Gait No stairs due to limited motion and pain, no more than household ambulation Functional Limitations- Recreation/ Unable to garden Hobbies PT-OP-C Subjective Start: 04/28/23 10:41 Freq: Status: Active Protocol: Document 06/09/23 12:17 NM (Rec: 06/09/23 13:01 NM [id number]) OP-PT Subjective Patient Comments Patient Comments Pt reports no knee pain, just soreness. She saw Dr. Patton on , and she reports that he is pleased with her ROM. She presents with FWW as she does not feel safe enough to attempt 4WW at home. PT-OP-D Balance Start: 04/28/23 10:41 Freq: Status: Active Protocol: Document 04/28/23 10:42 NM (Rec: 04/28/23 11:56 NM [id number]) OP-PT Balance Assessment Sitting Balance Static Sitting Balance Ability Normal Dynamic Sitting Balance Ability Normal Standing Balance Static Standing Balance Ability Good Dynamic Standing Balance Ability Fair Device Used FWW Standing Balance Comments Occasional CGA to steady during gait, changing JUVENCIO Denise Fall Scale Copyright Permission PT-OP-E Functional Tests Start: 04/28/23 10:41 Freq: Status: Active Protocol: Document 04/28/23 10:42 NM (Rec: 04/28/23 11:40 NM [id number]) Functional Tests Timed Up and Go (TUG) Score 41.5 sec Comments FWW, SBA PT-OP-F Manual Assessment Start: 04/28/23 10:41 Freq: Status: Active Protocol: Document 04/28/23 10:42 NM (Rec: 04/28/23 11:40 NM [id number]) Manual Assessments Soft Tissue Assessment Soft Tissue Mobility Assessment Soft tissue restrictions of L hamstring. Edema in L ankle, knee and calf. Will need scar mobilization to prevent adhesions once scar is closed and healed. Joint Mobility Assessment Joint Mobility Assessment Empty end feel with PROM, limited mobility PT-OP-G Mobility & Gait Start: 04/28/23 10:41 Freq: Status: Active Protocol: Document 04/28/23 10:42 NM (Rec: 04/28/23 11:40 NM [id number]) OP Gait Assessment Gait Gait Assistance Required: Standby Assistance Distance (Feet) 200 Able to Maintain Weight Bearing Status Yes During Gait Assistive Devices Assistive Device Gait Belt,Straight Cane,Front Wheeled Walker Gait Deviations General Gait Pattern Antalgic,Decreased Stride Length,Step-to Gait Factors Limiting Gait Function Factors Limiting Gait Function Decreased Activity Tolerance, Decreased Strength,Limited Range of Motion,Pain,Poor Balance Comments Gait Comments Primarily uses FWW for gait. Began using FWW for gait prior in Jun 2022 prior to surgery due to poor balance. PT-OP-H Neuro Start: 04/28/23 10:41 Freq: Status: Active Protocol: Document 04/28/23 10:42 NM (Rec: 04/28/23 11:40 NM [id number]) Sensation Evaluation Gross Sensation Gross Sensation WNL Comments Summary Comments LLE intact to light touch sensation in all dermatomes. PT-OP-J Posture/Palpation/Skin Start: 04/28/23 10:41 Freq: Status: Active Protocol: Document 04/28/23 10:42 NM (Rec: 04/28/23 11:40 NM [id number]) Posture Evaluation Position Standing Evaluation View Posterior Pelvis Posture Anteriorly Tilted Weight Distribution Weight Shifted Right,Decreased Wt.Bear on (L) Hip Posture (L) Externally Rotated Knee Posture (L) Genu Valgus,(R) Genu Valgus Patellar Posture (R) Superior Palpation Assessment Location L knee Palpation Location posterior knee, posterior calf , lateral and medial knee Palpation Findings Edema,Soft Tissue Tightness, Tenderness Palpation Details Tenderness and edema along posterior knee and calf. No sign of DVT Tenderness and edema along medial and lateral knee near patella, femoral condyles near joint line Skin Assessment Edema Assessment L ankle Edema Type Non-Pitting Edema Degree 2+ Edema Appearance Discolored,Puffy Circumference Measurement L knee Location 5 cm above patella (60cm), sub patella (51 cm), 10 cm below patella (49 cm) Comments L malleoli (27 cm) with excess on lateral side, at patella ( 56.5 cm) Incisional Assessment Incision Appearance/Comments Bandage is CDI. Still wrapped so could not formally assess incision. No signs of infection around bandage. Will assess further once bandage removed PT-OP-K Range of Motion Start: 04/28/23 10:41 Freq: Status: Active Protocol: Document 05/30/23 13:54 NM (Rec: 05/30/23 15:00 NM [id number]) Knee Goniometric Range of Motion Knee Left Knee ROM WFL No Patient Position Supine Flexion Active (degrees) 110 Flexion Passive (degrees) 112 Extension Active (degrees) 5 Extension Passive (degrees) 4 Comments 05/30/23: lacking 5 deg ext with active quad contraction @IE: flex 80 deg ext -10 deg PT-OP-M Strength Start: 04/28/23 10:41 Freq: Status: Active Protocol: Document 05/30/23 13:54 NM (Rec: 05/30/23 15:00 NM [id number]) Knee Strength Knee Manual Muscle Testing Left Flexion (S2) 4 Good Extension (L3) 4- Good- Comments @ IE: flex and ext 3/5 PT-OP-Q Treatments Start: 04/28/23 10:41 Freq: Status: Active Protocol: Document 06/09/23 12:17 NM (Rec: 06/09/23 13:01 NM [id number]) Cardio Equipment Recumbent Bicycle Duration (Minutes) 4 Resistance 0 Seat Position 5 Other full cycle; cues to prevent hip ER/abd with knee flex Therapeutic Exercises Supine Exercises SLR Supine Exercise Name trialed- with quad set Side left Reps/Minutes 1x10 Comments slight extensor lag; cued for quad contraction throughout ROM Sidelying Exercises Hip abduction Sidelying Exercise Name reviewed HEP Side left Reps/Minutes 2x8 Comments cues to prevent bwd trunk/hip rotation; hip IR Sitting Exercises LAQ Sitting Exercise Name 1. with 2# ankle weight, 2. 2# plus teal band Side left Resistance 2#, lvl 2 teal band Equipment Used sitting EOB Reps/Minutes 2x10 with2 hold at top Comments improved TKE; reports good activation of quad Knee flex Sitting Exercise Name HSC Side left Resistance 2# ankle weight with tb band Equipment Used sitting EOB Reps/Minutes 2x10 Comments reports good feedback of hamstrings Other Exercises Sit to stand Other Exercise Name no UE support from 20 plinth height Side bilateral Equipment Used FWW in front Reps/Minutes 1x12 Comments cues for TKE in stance, fwd weight shift; demos improved glute strength Manual Therapy Treatment Soft Tissue Mobilization Scar mobilization Body Location anterior knee Mobilization Type Cross-Friction,Myofascial Release,Rolling,Strumming Intensity/Depth Moderate Body Position sitting, supine Comments Mod scar adhesions to underlying skin and fascia. Scar mobilization with lifting , rolling, vertical/horizontal along scar, and twisting. PT instructed pt on use of lotion ., mobilizing at home. Joint Mobilizations L knee Joint A-P on tibia for ext, P-A on tibia for flex Grade III Body Position Supine Reps/Duration 1x10 ea Comments Grade III mobilizations to increase knee flex and knee ext ROM. Knee flex 112 deg, knee ext to -3 deg with quad set Patella Direction superior/inferior, medial/ lateral Grade III Body Position Supine Reps/Duration 90 ea direction Comments To improve knee ext and flex mobility Manual Techniques PROM Type L knee flex Body Position Sidelying Reps/Duration 15x3 Comments sidelying quad stretch and hip flexor stretch. Also seated knee flexion stretch under table, up to 110 deg PT-OP-R Modalities Start: 05/30/23 15:01 Freq: Status: Active Protocol: Document 05/30/23 13:54 NM (Rec: 05/30/23 15:07 NM [id number]) Electric Stimulation Electric Stimulation Biphasic Body Location L quad Duration (Minutes) 10 Intensity 18 Frequency 50 Pulse Width 300 Contraction Type Normal Ramp 1.0 Comments 5/5 cycle due to time to maximize contractions Performed in sitting (LAQ), supine (quad sets, SAQ). Skin normal color, intact/dry before, during, after tmt. Skin check after 3 min and at end of session. PT-OP-T Assessment and Plan Start: 04/28/23 10:41 Freq: Status: Active Protocol: Document 06/09/23 12:17 NM (Rec: 06/09/23 13:01 NM [id number]) Physical Therapy Assessment Goals Seven Impairment gait Impairment Unable to complete 6 MWT at IE Short Term Goal (STG) Pt will be able to complete a 6 MWT using LRAD in order to demo improved gait mechanics and activity tolerance for community ambulation. 05/30/23: 798 ft with FWW STG Duration 6 weeks [facility] Goal (LTG) Pt will improve 6 MWT distance by at least 100 ft using LRAD in order to demo improved gait mechanics and activity tolerance for community ambulation. LTG Duration 12 weeks Six Impairment function Impairment LEFS 10/80 Short Term Goal (STG) Pt will improve LEFS score by at least 9 points (MCID) in order to demo improved activity tolerance and strength. 05/30/23: 53/80 STG Duration 6 weeks [facility] Goal (LTG) Pt will improve LEFS score by at least 18 points (2 MCID) in order to demo improved activity tolerance and strength. 05/30/23: 53/80 LTG Duration 12 weeks MET Five Impairment Balance, function Impairment TUG 41.5 sec with FWW Short Term Goal (STG) Pt will decrease TUG score time to at least 30 seconds or less using LRAD in order to demo improved balance during gait and transfers, to decrease fall risk. 05/30/23: 21 sec STG Duration 6 weeks [facility] Goal (LTG) Pt will decrease TUG score time to at least 15 seconds or less using LRAD in order to demo improved balance during gait and transfers, to decrease fall risk. LTG Duration 12 weeks Four Impairment strength Impairment Knee flex 3/5 Short Term Goal (STG) Pt will improve L knee flex strength to at least 4-/5 in order to perform stairs and for propulsion during gait. 05/30/23: 4/5 knee flex STG Duration 6 weeks [facility] Goal (LTG) Pt will improve L knee flex strength to at least 4+/5 in order to perform stairs and for propulsion during gat. LTG Duration 12 weeks Three Impairment Strength Impairment Knee ext 3/5 Short Term Goal (STG) Pt will improve L knee ext strength to at least 4-/5 in order to demo improved quad control for stability and TKE for gait. 05/30/23: 4-/5 MMT STG Duration 6 weeks [facility] Goal (LTG) Pt will improve L knee ext strength to at least 4+/5 in order to demo improved quad control for stability and TKE for gait. LTG Duration 12 weeks Two Impairment ROM Impairment Knee ext 10 deg AROM (lacking) Short Term Goal (STG) Pt will improve L knee ext to at least 5 deg AROM in order to reach terminal knee extension during gait and improve knee stability during stairs/gait. 05/30/23: -5 deg knee ext but demos decreased quad activation STG Duration 6 weeks [facility] Goal (LTG) Pt will improve L knee ext to at least 0 deg in order to reach terminal knee extension during gait and improve knee stabiltiy during stairs/gait. LTG Duration 12 weeks One Impairment ROM Impairment Knee flex 80 deg AROM Short Term Goal (STG) Pt will improve L knee flex to at least 100 deg AROM in order to demo improved knee flex ROM for stairs and gait. 05/30/23: 110 deg flex AROM STG Duration 6 weeks [facility] Goal (LTG) Pt will improve L knee flex to at least 115 deg AROM in order to demo improved knee flex ROM for stairs, gait, and to be comparable to RLE. LTG Duration 12 weeks Assessment Summary Assessment Pt is currently 7.5 weeks post -op. Just had follow up with Dr. Patton last week. Treatment focus on targeting quads and glutes, progressively loading. Initiated resisted LAQ and HSC to address knee weakness. Improved sit to stand, stronger glute contraction and knee ext, with hip abduction band around thighs to prevent knee valgus. Requires cues for terminal knee ext. Also initiated straight leg raise; PT facilitating quad for better quad contraction, verbal cues to maintain quad set through entire ROM. Demos slight quad lag. During manual treatment, added sidelying quad stretch, patellar, and tibiofemoral mobilizations to promote increased knee ROM. Pt tolerates well without increased pain. Pt demos improved ROM, now to -3 deg ext, 112 deg flex after mobilization; limited due to pain. Scar mobility is improved since last treatment session. Pt would benefit from skilled PT to progressively strengthen LLE, increase L knee ROM, gait and balance training with a less stable AD in order to improve activity tolerance and mobility, in addition to QOL. Physical Therapy Plan Frequency and Duration Frequency of Treatment 2x/Week Duration of treatment (weeks) 12 Plan of Care Start Date 04/28/23 Plan of Care End Date 07/21/23 Therapeutic Interventions Therapeutic Interventions Aquatic Therapy,Balance Training,Gait Training,Home Exercise Program,Joint Mobilizations,Manual Therapy, Neuromuscular Re-education, Patient/Caregiver Education, Self-Care/Home Management,Soft Tissue Mobilization,Taping, Therapeutic Activities, Therapeutic Exercises Modalities Cold Pack/Ice Massage,Electric Stimulation,Hot Packs, Iontophoresis,Ultrasound, Vasopneumatic Devices Next Visit Focus/Plan Next Note Type Treatment Note Next Visit Plan Next session: Possibly e-stim Continue hip/knee strengthening, squat, stair training. Continue bike. Initiate gait with 4WW and spc as tolerated Manual: soft tissue, no scar mgmt yet, gentle PROM with flex/ext Edu: scar tissue formation, sitting posture (no knee flex) - review
--- NOTE | 2023-06-16 15:05 | PT.OTN ---
Current Diagnoses Unilateral primary osteoarthritis, left knee (06/16/23) Physical Therapy Treatment Note PT-OP-A Visit Information Start: 04/28/23 10:41 Freq: Status: Active Protocol: Document 06/16/23 12:20 NM (Rec: 06/16/23 13:04 NM [id number]) Out-Patient Physical Therapy Visit Information Visit Information Visit Type Treatment Note Visit Note DOS: 04/18/23 2 visits post PN Visit Start Time 12:16 Visit Stop Time 13:00 Total Visit Minutes 44 Visit Number 11 Evaluation Information Evaluation Date 04/28/23 Precautions Precautions Post-op 04/18/23 (TKA) Fall risk PT-OP-B Current Condition Start: 04/28/23 10:41 Freq: Status: Active Protocol: Document 04/28/23 10:42 NM (Rec: 04/28/23 11:40 NM [id number]) Current Condition History of Current Condition Onset Date 04/18/23 Current Complaints pain, swelling, sleep History of Current Condition Pt presents to clinic with FWW s/p L TKA on 04/19. She is seeing Dr. Patton for her knee. Currently, pt still has her post-op dressings still on and is WBAT with a FWW. Pt has B knee OA, which led to the replacement. She had no pre-op PT. Prior to surgery, she was able to ambulate up to 1/4 mi due to pain, which is a decrease from her baseline which was 1 mi. She is planning on having the R knee replaced in a few months. Pt has steps leading up to her home which is covered by a ramp. She used a FWW for gait prior to surgery due to feeling like she had poor balance; she also has a spc that she uses occasional (not since surgery). Pt reports compliance with HEP from hospital, performing exercises 1-2x/day. She does report some tingling in her LLE down to her foot, but this was occuring prior to her TKA. Her main compliants are pain, weakness, swelling, stiffness, and poor sleep since her surgery. Future Testing and Treatments Planned Follow up 04/[address] Patton Treatment Goals Patient/Caregiver Goals Decrease pain, improve knee motion and strength, be able to sleep without discomfort Prior Functional Status Baseline Function- ADL's Independent Baseline Function- Mobility Independent Baseline Function- Gait FWW or spc for balance; up to 1/4 mi for gait distance Baseline Function- Recreation/Hobbies Gardening (hands and knees) Baseline Function- Other Stairs (no issue) Current Functional Impairments (Reported) Functional Limitations- Mobility/Gait No stairs due to limited motion and pain, no more than household ambulation Functional Limitations- Recreation/ Unable to garden Hobbies PT-OP-C Subjective Start: 04/28/23 10:41 Freq: Status: Active Protocol: Document 06/16/23 12:20 NM (Rec: 06/16/23 13:04 NM [id number]) OP-PT Subjective Patient Comments Patient Comments Pt reports no knee pain today in her L knee. She is seeing Dr. Patton later this week for an injection on her R knee due to pain. She presents with FWW. Her is currently using the 4WW due to a fall. PT-OP-D Balance Start: 04/28/23 10:41 Freq: Status: Active Protocol: Document 04/28/23 10:42 NM (Rec: 04/28/23 11:56 NM [id number]) OP-PT Balance Assessment Sitting Balance Static Sitting Balance Ability Normal Dynamic Sitting Balance Ability Normal Standing Balance Static Standing Balance Ability Good Dynamic Standing Balance Ability Fair Device Used FWW Standing Balance Comments Occasional CGA to steady during gait, changing JUVENCIO Denise Fall Scale Copyright Permission PT-OP-E Functional Tests Start: 04/28/23 10:41 Freq: Status: Active Protocol: Document 04/28/23 10:42 NM (Rec: 04/28/23 11:40 NM [id number]) Functional Tests Timed Up and Go (TUG) Score 41.5 sec Comments FWW, SBA PT-OP-F Manual Assessment Start: 04/28/23 10:41 Freq: Status: Active Protocol: Document 04/28/23 10:42 NM (Rec: 04/28/23 11:40 NM [id number]) Manual Assessments Soft Tissue Assessment Soft Tissue Mobility Assessment Soft tissue restrictions of L hamstring. Edema in L ankle, knee and calf. Will need scar mobilization to prevent adhesions once scar is closed and healed. Joint Mobility Assessment Joint Mobility Assessment Empty end feel with PROM, limited mobility PT-OP-G Mobility & Gait Start: 04/28/23 10:41 Freq: Status: Active Protocol: Document 04/28/23 10:42 NM (Rec: 12/04/23 11:40 NM [id number]) OP Gait Assessment Gait Gait Assistance Required: Standby Assistance Distance (Feet) 200 Able to Maintain Weight Bearing Status Yes During Gait Assistive Devices Assistive Device Gait Belt,Straight Cane,Front Wheeled Walker Gait Deviations General Gait Pattern Antalgic,Decreased Stride Length,Step-to Gait Factors Limiting Gait Function Factors Limiting Gait Function Decreased Activity Tolerance, Decreased Strength,Limited Range of Motion,Pain,Poor Balance Comments Gait Comments Primarily uses FWW for gait. Began using FWW for gait prior in Jun 2022 prior to surgery due to poor balance. PT-OP-H Neuro Start: 04/28/23 10:41 Freq: Status: Active Protocol: Document 04/28/23 10:42 NM (Rec: 04/28/23 11:40 NM [id number]) Sensation Evaluation Gross Sensation Gross Sensation WNL Comments Summary Comments LLE intact to light touch sensation in all dermatomes. PT-OP-J Posture/Palpation/Skin Start: 04/28/23 10:41 Freq: Status: Active Protocol: Document 04/28/23 10:42 NM (Rec: 04/28/23 11:40 NM [id number]) Posture Evaluation Position Standing Evaluation View Posterior Pelvis Posture Anteriorly Tilted Weight Distribution Weight Shifted Right,Decreased Wt.Bear on (L) Hip Posture (L) Externally Rotated Knee Posture (L) Genu Valgus,(R) Genu Valgus Patellar Posture (R) Superior Palpation Assessment Location L knee Palpation Location posterior knee, posterior calf , lateral and medial knee Palpation Findings Edema,Soft Tissue Tightness, Tenderness Palpation Details Tenderness and edema along posterior knee and calf. No sign of DVT Tenderness and edema along medial and lateral knee near patella, femoral condyles near joint line Skin Assessment Edema Assessment L ankle Edema Type Non-Pitting Edema Degree 2+ Edema Appearance Discolored,Puffy Circumference Measurement L knee Location 5 cm above patella (60cm), sub patella (51 cm), 10 cm below patella (49 cm) Comments L malleoli (27 cm) with excess on lateral side, at patella ( 56.5 cm) Incisional Assessment Incision Appearance/Comments Bandage is CDI. Still wrapped so could not formally assess incision. No signs of infection around bandage. Will assess further once bandage removed PT-OP-K Range of Motion Start: 04/28/23 10:41 Freq: Status: Active Protocol: Document 05/30/23 13:54 NM (Rec: 05/30/23 15:00 NM [id number]) Knee Goniometric Range of Motion Knee Left Knee ROM WFL No Patient Position Supine Flexion Active (degrees) 110 Flexion Passive (degrees) 112 Extension Active (degrees) 5 Extension Passive (degrees) 4 Comments 05/30/23: lacking 5 deg ext with active quad contraction @IE: flex 80 deg ext -10 deg PT-OP-M Strength Start: 04/28/23 10:41 Freq: Status: Active Protocol: Document 05/30/23 13:54 NM (Rec: 05/30/23 15:00 NM [id number]) Knee Strength Knee Manual Muscle Testing Left Flexion (S2) 4 Good Extension (L3) 4- Good- Comments @ IE: flex and ext 3/5 PT-OP-Q Treatments Start: 04/28/23 10:41 Freq: Status: Active Protocol: Document 06/16/23 12:20 NM (Rec: 06/16/23 13:04 NM [id number]) Cardio Equipment Recumbent Bicycle Duration (Minutes) 4 Resistance 0 Seat Position 3 Other full cycle; cues to prevent hip ER at end range knee flex Therapeutic Exercises Supine Exercises SLR Supine Exercise Name with quad set Side left Equipment Used improved quad control/TKE but still lacking full ext Reps/Minutes 1x10 Comments slight extensor lag; cued for quad contraction throughout ROM Sitting Exercises LAQ Side left Resistance 2#, lvl 3 [place] band Equipment Used sitting EOB Reps/Minutes 2x10 with 3 hold Comments improved TKE; cue for good quad contraction with knee ext Standing Exercises Side steps Standing Exercise Name trial next time Step up Standing Exercise Name 1. 4 step, 2. 6 step Side left Equipment Used L hand rail used; L foot up, stay on step, R down first Reps/Minutes 1. 1x10 ea, 2. 1x5 (difficult- requires 2 hand UE) Comments cued for less UE support on stairs; for knee flex ROM, strengthening Other Exercises Sit to stand Other Exercise Name no UE support from 20 plinth height Side bilateral Equipment Used 4WW in front Reps/Minutes 1x12 Comments cues for TKE in stance, fwd weight shift; demos improved glute strength Gait Training Gait Activity 4WW Device Used 4WW Level of Assistance SBA with prn CGA for cues/to steady when outside Surface stable, unstable, curb, sidewalk, tile, carpet Treatment Focus normal gait mechanics, decreased stability with gait Comments Cue for heel>toe LLE, knee flex for increased foot clearance and to promote improved knee flex ROM during swing. Gait slightly antalgic, likely due to RLE pain. PT-OP-R Modalities Start: 05/30/23 15:01 Freq: Status: Active Protocol: Document 05/30/23 13:54 NM (Rec: 05/30/23 15:07 NM [id number]) Electric Stimulation Electric Stimulation Biphasic Body Location L quad Duration (Minutes) 10 Intensity 18 Frequency 50 Pulse Width 300 Contraction Type Normal Ramp 1.0 Comments 5/5 cycle due to time to maximize contractions Performed in sitting (LAQ), supine (quad sets, SAQ). Skin normal color, intact/dry before, during, after tmt. Skin check after 3 min and at end of session. PT-OP-T Assessment and Plan Start: 04/28/23 10:41 Freq: Status: Active Protocol: Document 06/16/23 12:20 NM (Rec: 06/16/23 13:04 NM [id number]) Physical Therapy Assessment Goals Seven Impairment gait Impairment Unable to complete 6 MWT at IE Short Term Goal (STG) Pt will be able to complete a 6 MWT using LRAD in order to demo improved gait mechanics and activity tolerance for community ambulation. 05/30/23: 798 ft with FWW STG Duration 6 weeks [facility] [employer]ded Software Developer Goal (LTG) Pt will improve 6 MWT distance by at least 100 ft using LRAD in order to demo improved gait mechanics and activity tolerance for community ambulation. LTG Duration 12 weeks Six Impairment function Impairment LEFS 10 Short Term Goal (STG) Pt will improve LEFS score by at least 9 points (MCID) in order to demo improved activity tolerance and strength. 05/30/23: 5380 STG Duration 6 weeks [facility] [employer] Goal (LTG) Pt will improve LEFS score by at least 18 points (2 MCID) in order to demo improved activity tolerance and strength. 05/30/23: 5380 LTG Duration 12 weeks MET Five Impairment Balance, function Impairment TUG 41.5 sec with FWW Short Term Goal (STG) Pt will decrease TUG score time to at least 30 seconds or less using LRAD in order to demo improved balance during gait and transfers, to decrease fall risk. 05/30/23: 21 sec STG Duration 6 weeks [facility] Goal (LTG) Pt will decrease TUG score time to at least 15 seconds or less using LRAD in order to demo improved balance during gait and transfers, to decrease fall risk. LTG Duration 12 weeks Four Impairment strength Impairment Knee flex 3/5 Short Term Goal (STG) Pt will improve L knee flex strength to at least 4-/5 in order to perform stairs and for propulsion during gait. 05/30/23: 4/5 knee flex STG Duration 6 weeks [employer] Software Developer Goal (LTG) Pt will improve L knee flex strength to at least 4+/5 in order to perform stairs and for propulsion during gat. LTG Duration 12 weeks Three Impairment Strength Impairment Knee ext 3/5 Short Term Goal (STG) Pt will improve L knee ext strength to at least 4-/5 in order to demo improved quad control for stability and TKE for gait. 05/30/23: 4-/5 MMT STG Duration 6 weeks [facility] Goal (LTG) Pt will improve L knee ext strength to at least 4+/5 in order to demo improved quad control for stability and TKE for gait. LTG Duration 12 weeks Two Impairment ROM Impairment Knee ext 10 deg AROM (lacking) Short Term Goal (STG) Pt will improve L knee ext to at least 5 deg AROM in order to reach terminal knee extension during gait and improve knee stability during stairs/gait. 05/30/23: -5 deg knee ext but demos decreased quad activation STG Duration 6 weeks [facility] [employer] Software Developer Goal (LTG) Pt will improve L knee ext to at least 0 deg in order to reach terminal knee extension during gait and improve knee stabiltiy during stairs/gait. LTG Duration 12 weeks One Impairment ROM Impairment Knee flex 80 deg AROM Short Term Goal (STG) Pt will improve L knee flex to at least 100 deg AROM in order to demo improved knee flex ROM for stairs and gait. 06/16/23: 115 deg flex AROM 05/30/23: 110 deg flex AROM STG Duration 6 weeks [employer] Software Developer Goal (LTG) Pt will improve L knee flex to at least 115 deg AROM in order to demo improved knee flex ROM for stairs, gait, and to be comparable to RLE. LTG Duration 12 weeks Assessment Summary Assessment Pt currently 8.5 weeks post-op . PT educated pt on improving knee flexion ROM, alex with riding bike; continues to require moderate cues to prevent hip ER compensation when performing knee flexion at her end range. Pt has been practicing with 4WW at home, so performed gait training with 4WW inside/outside. Pt able to perform over curbs, sidewalk, and changing surfaces with SBA and occasional CGA to cue for safety/steady for curbs. PT and pt discussed using 4WW at home, progressing to using in community as pt feels more comfortable. Progressed LAQ band resistance as pt demos improved TKE and quad activation during knee ext without facilitation. During straight leg raise, continues to have slight extensor lag but better control compared to previous attempt; pt cued to reset quad between reps in order to maximize quad activation. During step ups, able to perform on 4 step wtih 1 handrail assist for balance; requires 2 rails for 6 due to quad/glute weakness, pt using max UE assist to step up and CGA to balance. Cues for hip and knee flexion for foot clearance onto step. Currently 115 AROM knee flex, lacking 5 deg knee ext but is comparable to RLE. Pt would benefit from skilled PT for further BLE strengthening, R knee mobility, gait/stair/ balance training in order to improve activity tolerance, decrease fall risk, and return to PLOF. Physical Therapy Plan Frequency and Duration Frequency of Treatment 2x/Week Duration of treatment (weeks) 12 Plan of Care Start Date 04/28/23 Plan of Care End Date 07/21/23 Therapeutic Interventions Therapeutic Interventions Aquatic Therapy,Balance Training,Gait Training,Home Exercise Program,Joint Mobilizations,Manual Therapy, Neuromuscular Re-education, Patient/Caregiver Education, Self-Care/Home Management,Soft Tissue Mobilization,Taping, Therapeutic Activities, Therapeutic Exercises Modalities Cold Pack/Ice Massage,Electric Stimulation,Hot Packs, Iontophoresis,Ultrasound, Vasopneumatic Devices Next Visit Focus/Plan Next Note Type Treatment Note Next Visit Plan Next session: LAQ with 4# ankle wt vs cables, add knee flex mob with leg on step, trial mini-lunge and side steps; squat, step 4 with progress to 6. Continue bike if time. Review gait with 4WW and spc as tolerated Manual: soft tissue, no scar mgmt yet, gentle PROM with flex/ext Edu: scar tissue formation, sitting posture (no knee flex) - review
--- NOTE | 2023-06-19 12:16 | PT.OTN ---
Current Diagnoses Unilateral primary osteoarthritis, left knee (06/19/23) Physical Therapy Treatment Note PT-OP-A Visit Information Start: 04/28/23 10:41 Freq: Status: Active Protocol: Document 06/19/23 11:21 SW (Rec: 06/19/23 12:15 SW [id number]) Out-Patient Physical Therapy Visit Information Visit Information Visit Type Treatment Note Visit Note DOS: 04/18/23 2 visits post PN Visit Start Time 11:18 Visit Stop Time 11:59 Visit Number 12 PT-OP-B Current Condition Start: 04/28/23 10:41 Freq: Status: Active Protocol: Document 04/28/23 10:42 NM (Rec: 04/28/23 11:40 NM [id number]) Current Condition History of Current Condition Onset Date 04/18/23 Current Complaints pain, swelling, sleep History of Current Condition Pt presents to clinic with FWW s/p L TKA on 04/19. She is seeing Dr. Patton for her knee. Currently, pt still has her post-op dressings still on and is WBAT with a FWW. Pt has B knee OA, which led to the replacement. She had no pre-op PT. Prior to surgery, she was able to ambulate up to 1/4 mi due to pain, which is a decrease from her baseline which was 1 mi. She is planning on having the R knee replaced in a few months. Pt has steps leading up to her home which is covered by a ramp. She used a FWW for gait prior to surgery due to feeling like she had poor balance; she also has a spc that she uses occasional (not since surgery). Pt reports compliance with HEP from hospital, performing exercises 1-2x/day. She does report some tingling in her LLE down to her foot, but this was occuring prior to her TKA. Her main compliants are pain, weakness, swelling, stiffness, and poor sleep since her surgery. Future Testing and Treatments Planned Follow up 04/[address] Patton Treatment Goals Patient/Caregiver Goals Decrease pain, improve knee motion and strength, be able to sleep without discomfort Prior Functional Status Baseline Function- ADL's Independent Baseline Function- Mobility Independent Baseline Function- Gait FWW or spc for balance; up to 1/4 mi for gait distance Baseline Function- Recreation/Hobbies Gardening (hands and knees) Baseline Function- Other Stairs (no issue) Current Functional Impairments (Reported) Functional Limitations- Mobility/Gait No stairs due to limited motion and pain, no more than household ambulation Functional Limitations- Recreation/ Unable to garden Hobbies PT-OP-C Subjective Start: 04/28/23 10:41 Freq: Status: Active Protocol: Document 06/19/23 11:21 SW (Rec: 06/19/23 12:15 SW [id number]) OP-PT Subjective Patient Comments Patient Comments Pt reports doing pretty well, seeing doctor today, possibly getting shot in R knee for pain. Pt reports sore more in the L quad than in the knee, soreness has been present since surgery. PT-OP-D Balance Start: 04/28/23 10:41 Freq: Status: Active Protocol: Document 04/28/23 10:42 NM (Rec: 04/28/23 11:56 NM [id number]) OP-PT Balance Assessment Sitting Balance Static Sitting Balance Ability Normal Dynamic Sitting Balance Ability Normal Standing Balance Static Standing Balance Ability Good Dynamic Standing Balance Ability Fair Device Used FWW Standing Balance Comments Occasional CGA to steady during gait, changing JUVENCIO Denise Fall Scale Copyright Permission PT-OP-E Functional Tests Start: 04/28/23 10:41 Freq: Status: Active Protocol: Document 04/28/23 10:42 NM (Rec: 04/28/23 11:40 NM [id number]) Functional Tests Timed Up and Go (TUG) Score 41.5 sec Comments FWW, SBA PT-OP-F Manual Assessment Start: 04/28/23 10:41 Freq: Status: Active Protocol: Document 04/28/23 10:42 NM (Rec: 04/28/23 11:40 NM [id number]) Manual Assessments Soft Tissue Assessment Soft Tissue Mobility Assessment Soft tissue restrictions of L hamstring. Edema in L ankle, knee and calf. Will need scar mobilization to prevent adhesions once scar is closed and healed. Joint Mobility Assessment Joint Mobility Assessment Empty end feel with PROM, limited mobility PT-OP-G Mobility & Gait Start: 04/28/23 10:41 Freq: Status: Active Protocol: Document 04/28/23 10:42 NM (Rec: 04/28/23 11:40 NM [id number]) OP Gait Assessment Gait Gait Assistance Required: Standby Assistance Distance (Feet) 200 Able to Maintain Weight Bearing Status Yes During Gait Assistive Devices Assistive Device Gait Belt,Straight Cane,Front Wheeled Walker Gait Deviations General Gait Pattern Antalgic,Decreased Stride Length,Step-to Gait Factors Limiting Gait Function Factors Limiting Gait Function Decreased Activity Tolerance, Decreased Strength,Limited Range of Motion,Pain,Poor Balance Comments Gait Comments Primarily uses FWW for gait. Began using FWW for gait prior in Jun 2022 prior to surgery due to poor balance. PT-OP-H Neuro Start: 04/28/23 10:41 Freq: Status: Active Protocol: Document 04/28/23 10:42 NM (Rec: 04/28/23 11:40 NM [id number]) Sensation Evaluation Gross Sensation Gross Sensation WNL Comments Summary Comments LLE intact to light touch sensation in all dermatomes. PT-OP-J Posture/Palpation/Skin Start: 04/28/23 10:41 Freq: Status: Active Protocol: Document 04/28/23 10:42 NM (Rec: 04/28/23 11:40 NM [id number]) Posture Evaluation Position Standing Evaluation View Posterior Pelvis Posture Anteriorly Tilted Weight Distribution Weight Shifted Right,Decreased Wt.Bear on (L) Hip Posture (L) Externally Rotated Knee Posture (L) Genu Valgus,(R) Genu Valgus Patellar Posture (R) Superior Palpation Assessment Location L knee Palpation Location posterior knee, posterior calf , lateral and medial knee Palpation Findings Edema,Soft Tissue Tightness, Tenderness Palpation Details Tenderness and edema along posterior knee and calf. No sign of DVT Tenderness and edema along medial and lateral knee near patella, femoral condyles near joint line Skin Assessment Edema Assessment L ankle Edema Type Non-Pitting Edema Degree 2+ Edema Appearance Discolored,Puffy Circumference Measurement L knee Location 5 cm above patella (60cm), sub patella (51 cm), 10 cm below patella (49 cm) Comments L malleoli (27 cm) with excess on lateral side, at patella ( 56.5 cm) Incisional Assessment Incision Appearance/Comments Bandage is CDI. Still wrapped so could not formally assess incision. No signs of infection around bandage. Will assess further once bandage removed PT-OP-K Range of Motion Start: 04/28/23 10:41 Freq: Status: Active Protocol: Document 05/30/23 13:54 NM (Rec: 05/30/23 15:00 NM [id number]) Knee Goniometric Range of Motion Knee Left Knee ROM WFL No Patient Position Supine Flexion Active (degrees) 110 Flexion Passive (degrees) 112 Extension Active (degrees) 5 Extension Passive (degrees) 4 Comments 05/30/23: lacking 5 deg ext with active quad contraction @IE: flex 80 deg ext -10 deg PT-OP-M Strength Start: 04/28/23 10:41 Freq: Status: Active Protocol: Document 05/30/23 13:54 NM (Rec: 05/30/23 15:00 NM [id number]) Knee Strength Knee Manual Muscle Testing Left Flexion (S2) 4 Good Extension (L3) 4- Good- Comments @ IE: flex and ext 3/5 PT-OP-Q Treatments Start: 04/28/23 10:41 Freq: Status: Active Protocol: Document 06/19/23 11:21 SW (Rec: 06/19/23 12:15 SW [id number]) Cardio Equipment Recumbent Bicycle Duration (Minutes) 4 Resistance 0 Seat Position 3 Other full cycle; cues to prevent hip ER at end range knee flex Therapeutic Exercises Supine Exercises SLR Supine Exercise Name with quad set Side left Equipment Used improved quad control/TKE but still lacking full ext Reps/Minutes 1x10 Comments slight extensor lag; cued for quad contraction throughout ROM Sitting Exercises LAQ Sitting Exercise Name LAQ w/ mm tapping/min assist Side left Resistance lvl 3 ely [place] green band Equipment Used sitting EOB Reps/Minutes 2x10 with 3 hold Comments improved TKE; cue for good quad contraction with knee ext Standing Exercises Side steps Standing Exercise Name Side steps Side bilateral Resistance green TB Equipment Used ballet bar Reps/Minutes 2 ea x 20 ft Step up Standing Exercise Name 1. 4 step Side bilateral Equipment Used L handrail used; Reciprocal ascend; Descend R lead step to L lead reciproca Reps/Minutes x2 ascend/descend Comments cued for less UE support on stairs; for knee flex ROM, strengthening PT-OP-R Modalities Start: 05/30/23 15:01 Freq: Status: Active Protocol: Document 05/30/23 13:54 NM (Rec: 05/30/23 15:07 NM [id number]) Electric Stimulation Electric Stimulation Biphasic Body Location L quad Duration (Minutes) 10 Intensity 18 Frequency 50 Pulse Width 300 Contraction Type Normal Ramp 1.0 Comments 5/5 cycle due to time to maximize contractions Performed in sitting (LAQ), supine (quad sets, SAQ). Skin normal color, intact/dry before, during, after tmt. Skin check after 3 min and at end of session. PT-OP-T Assessment and Plan Start: 04/28/23 10:41 Freq: Status: Active Protocol: Document 06/19/23 11:21 SW (Rec: 06/19/23 12:15 SW [id number]) Physical Therapy Assessment Goals Seven Impairment gait Impairment Unable to complete 6 MWT at IE Short Term Goal (STG) Pt will be able to complete a 6 MWT using LRAD in order to demo improved gait mechanics and activity tolerance for community ambulation. 05/30/23: 798 ft with FWW STG Duration 6 weeks MET Ward Assistant Goal (LTG) Pt will improve 6 MWT distance by at least 100 ft using LRAD in order to demo improved gait mechanics and activity tolerance for community ambulation. LTG Duration 12 weeks Six Impairment function Impairment LEFS 10 Short Term Goal (STG) Pt will improve LEFS score by at least 9 points (MCID) in order to demo improved activity tolerance and strength. 05/30/23: 53/80 STG Duration 6 weeks MET Ward Assistant Goal (LTG) Pt will improve LEFS score by at least 18 points (2 MCID) in order to demo improved activity tolerance and strength. 05/30/23: 53/80 LTG Duration 12 weeks MET Five Impairment Balance, function Impairment TUG 41.5 sec with FWW Short Term Goal (STG) Pt will decrease TUG score time to at least 30 seconds or less using LRAD in order to demo improved balance during gait and transfers, to decrease fall risk. 05/30/23: 21 sec STG Duration 6 weeks MET [facility] Goal (LTG) Pt will decrease TUG score time to at least 15 seconds or less using LRAD in order to demo improved balance during gait and transfers, to decrease fall risk. LTG Duration 12 weeks Four Impairment strength Impairment Knee flex 3/5 Short Term Goal (STG) Pt will improve L knee flex strength to at least 4-/5 in order to perform stairs and for propulsion during gait. 05/30/23: 4/5 knee flex STG Duration 6 weeks [facility] Goal (LTG) Pt will improve L knee flex strength to at least 4+/5 in order to perform stairs and for propulsion during gat. LTG Duration 12 weeks Three Impairment Strength Impairment Knee ext 3/5 Short Term Goal (STG) Pt will improve L knee ext strength to at least 4-/5 in order to demo improved quad control for stability and TKE for gait. 05/30/23: 4-/5 MMT STG Duration 6 weeks [facility] Goal (LTG) Pt will improve L knee ext strength to at least 4+/5 in order to demo improved quad control for stability and TKE for gait. LTG Duration 12 weeks Two Impairment ROM Impairment Knee ext 10 deg AROM (lacking) Short Term Goal (STG) Pt will improve L knee ext to at least 5 deg AROM in order to reach terminal knee extension during gait and improve knee stability during stairs/gait. 05/30/23: -5 deg knee ext but demos decreased quad activation STG Duration 6 weeks MET [facility] Assistant Goal (LTG) Pt will improve L knee ext to at least 0 deg in order to reach terminal knee extension during gait and improve knee stabiltiy during stairs/gait. LTG Duration 12 weeks One Impairment ROM Impairment Knee flex 80 deg AROM Short Term Goal (STG) Pt will improve L knee flex to at least 100 deg AROM in order to demo improved knee flex ROM for stairs and gait. 06/16/23: 115 deg flex AROM 05/30/23: 110 deg flex AROM STG Duration 6 weeks MET Ward Assistant Goal (LTG) Pt will improve L knee flex to at least 115 deg AROM in order to demo improved knee flex ROM for stairs, gait, and to be comparable to RLE. LTG Duration 12 weeks Assessment Summary Assessment Continued LAQ, gentle assist and addition of mm tapping at end range to facilitate quad activation. Initiated side stepping for strengthening in hips toward patient balance and gait goals. Minimal cueing for L knee flexion and accepting weight into LLE. Pt improved knee flexion with revolutions on bike, minimal cues for hip compensation, good carryover. Physical Therapy Plan Frequency and Duration Frequency of Treatment 2x/Week Duration of treatment (weeks) 12 Plan of Care Start Date 04/28/23 Plan of Care End Date 07/21/23 Therapeutic Interventions Therapeutic Interventions Aquatic Therapy,Balance Training,Gait Training,Home Exercise Program,Joint Mobilizations,Manual Therapy, Neuromuscular Re-education, Patient/Caregiver Education, Self-Care/Home Management,Soft Tissue Mobilization,Taping, Therapeutic Activities, Therapeutic Exercises Modalities Cold Pack/Ice Massage,Electric Stimulation,Hot Packs, Iontophoresis,Ultrasound, Vasopneumatic Devices Next Visit Focus/Plan Next Note Type Treatment Note Next Visit Plan Next session: LAQ with 4# ankle wt vs cables, add knee flex mob with leg on step, trial mini-lunge and side steps; squat, step 4 with progress to 6. Continue bike if time. Review gait with 4WW and spc as tolerated Manual: soft tissue, no scar mgmt yet, gentle PROM with flex/ext Edu: scar tissue formation, sitting posture (no knee flex) - review
--- NOTE | 2023-06-23 11:35 | PT-OP ANOTE ---
Pt called late am to cancel pm appt, sick and unable to attend.
--- NOTE | 2023-06-26 13:14 | PT.OTN ---
Current Diagnoses Unilateral primary osteoarthritis, left knee (06/26/23) Physical Therapy Treatment Note PT-OP-A Visit Information Start: 04/28/23 10:41 Freq: Status: Active Protocol: Document 06/26/23 12:14 NM (Rec: 06/26/23 13:01 NM [id number]) Out-Patient Physical Therapy Visit Information Visit Information Visit Type Treatment Note Visit Note DOS: 04/18/23 4 visits post PN Visit Start Time 12:17 Visit Stop Time 12:57 Visit Number 13 Evaluation Information Evaluation Date 04/28/23 Precautions Precautions Post-op 04/18/23 (TKA) Fall risk PT-OP-B Current Condition Start: 04/28/23 10:41 Freq: Status: Active Protocol: Document 04/28/23 10:42 NM (Rec: 04/28/23 11:40 NM [id number]) Current Condition History of Current Condition Onset Date 04/18/23 Current Complaints pain, swelling, sleep History of Current Condition Pt presents to clinic with FWW s/p L TKA on 04/19. She is seeing Dr. Patton for her knee. Currently, pt still has her post-op dressings still on and is WBAT with a FWW. Pt has B knee OA, which led to the replacement. She had no pre-op PT. Prior to surgery, she was able to ambulate up to 1/4 mi due to pain, which is a decrease from her baseline which was 1 mi. She is planning on having the R knee replaced in a few months. Pt has steps leading up to her home which is covered by a ramp. She used a FWW for gait prior to surgery due to feeling like she had poor balance; she also has a spc that she uses occasional (not since surgery). Pt reports compliance with HEP from hospital, performing exercises 1-2x/day. She does report some tingling in her LLE down to her foot, but this was occuring prior to her TKA. Her main compliants are pain, weakness, swelling, stiffness, and poor sleep since her surgery. Future Testing and Treatments Planned Follow up 04/[address] Patton Treatment Goals Patient/Caregiver Goals Decrease pain, improve knee motion and strength, be able to sleep without discomfort Prior Functional Status Baseline Function- ADL's Independent Baseline Function- Mobility Independent Baseline Function- Gait FWW or spc for balance; up to 1/4 mi for gait distance Baseline Function- Recreation/Hobbies Gardening (hands and knees) Baseline Function- Other Stairs (no issue) Current Functional Impairments (Reported) Functional Limitations- Mobility/Gait No stairs due to limited motion and pain, no more than household ambulation Functional Limitations- Recreation/ Unable to garden Hobbies PT-OP-C Subjective Start: 04/28/23 10:41 Freq: Status: Active Protocol: Document 06/26/23 12:14 NM (Rec: 06/26/23 13:01 NM [id number]) OP-PT Subjective Patient Comments Patient Comments Pt reports that she is having some L quad tightness but no pain. Reports compliance with HEP PT-OP-D Balance Start: 04/28/23 10:41 Freq: Status: Active Protocol: Document 04/28/23 10:42 NM (Rec: 04/28/23 11:56 NM [id number]) OP-PT Balance Assessment Sitting Balance Static Sitting Balance Ability Normal Dynamic Sitting Balance Ability Normal Standing Balance Static Standing Balance Ability Good Dynamic Standing Balance Ability Fair Device Used FWW Standing Balance Comments Occasional CGA to steady during gait, changing JUVENCIO Denise Fall Scale Copyright Permission PT-OP-E Functional Tests Start: 04/28/23 10:41 Freq: Status: Active Protocol: Document 04/28/23 10:42 NM (Rec: 04/28/23 11:40 NM [id number]) Functional Tests Timed Up and Go (TUG) Score 41.5 sec Comments FWW, SBA PT-OP-F Manual Assessment Start: 04/28/23 10:41 Freq: Status: Active Protocol: Document 04/28/23 10:42 NM (Rec: 04/28/23 11:40 NM [id number]) Manual Assessments Soft Tissue Assessment Soft Tissue Mobility Assessment Soft tissue restrictions of L hamstring. Edema in L ankle, knee and calf. Will need scar mobilization to prevent adhesions once scar is closed and healed. Joint Mobility Assessment Joint Mobility Assessment Empty end feel with PROM, limited mobility PT-OP-G Mobility & Gait Start: 04/28/23 10:41 Freq: Status: Active Protocol: Document 04/28/23 10:42 NM (Rec: 04/28/23 11:40 NM [id number]) OP Gait Assessment Gait Gait Assistance Required: Standby Assistance Distance (Feet) 200 Able to Maintain Weight Bearing Status Yes During Gait Assistive Devices Assistive Device Gait Belt,Straight Cane,Front Wheeled Walker Gait Deviations General Gait Pattern Antalgic,Decreased Stride Length,Step-to Gait Factors Limiting Gait Function Factors Limiting Gait Function Decreased Activity Tolerance, Decreased Strength,Limited Range of Motion,Pain,Poor Balance Comments Gait Comments Primarily uses FWW for gait. Began using FWW for gait prior in Jun 2022 prior to surgery due to poor balance. PT-OP-H Neuro Start: 04/28/23 10:41 Freq: Status: Active Protocol: Document 04/28/23 10:42 NM (Rec: 04/28/23 11:40 NM [id number]) Sensation Evaluation Gross Sensation Gross Sensation WNL Comments Summary Comments LLE intact to light touch sensation in all dermatomes. PT-OP-J Posture/Palpation/Skin Start: 04/28/23 10:41 Freq: Status: Active Protocol: Document 04/28/23 10:42 NM (Rec: 04/28/23 11:40 NM [id number]) Posture Evaluation Position Standing Evaluation View Posterior Pelvis Posture Anteriorly Tilted Weight Distribution Weight Shifted Right,Decreased Wt.Bear on (L) Hip Posture (L) Externally Rotated Knee Posture (L) Genu Valgus,(R) Genu Valgus Patellar Posture (R) Superior Palpation Assessment Location L knee Palpation Location posterior knee, posterior calf , lateral and medial knee Palpation Findings Edema,Soft Tissue Tightness, Tenderness Palpation Details Tenderness and edema along posterior knee and calf. No sign of DVT Tenderness and edema along medial and lateral knee near patella, femoral condyles near joint line Skin Assessment Edema Assessment L ankle Edema Type Non-Pitting Edema Degree 2+ Edema Appearance Discolored,Puffy Circumference Measurement L knee Location 5 cm above patella (60cm), sub patella (51 cm), 10 cm below patella (49 cm) Comments L malleoli (27 cm) with excess on lateral side, at patella ( 56.5 cm) Incisional Assessment Incision Appearance/Comments Bandage is CDI. Still wrapped so could not formally assess incision. No signs of infection around bandage. Will assess further once bandage removed PT-OP-K Range of Motion Start: 04/28/23 10:41 Freq: Status: Active Protocol: Document 05/30/23 13:54 NM (Rec: 05/30/23 15:00 NM [id number]) Knee Goniometric Range of Motion Knee Left Knee ROM WFL No Patient Position Supine Flexion Active (degrees) 110 Flexion Passive (degrees) 112 Extension Active (degrees) 5 Extension Passive (degrees) 4 Comments 05/30/23: lacking 5 deg ext with active quad contraction @IE: flex 80 deg ext -10 deg PT-OP-M Strength Start: 04/28/23 10:41 Freq: Status: Active Protocol: Document 05/30/23 13:54 NM (Rec: 05/30/23 15:00 NM [id number]) Knee Strength Knee Manual Muscle Testing Left Flexion (S2) 4 Good Extension (L3) 4- Good- Comments @ IE: flex and ext 3/5 PT-OP-Q Treatments Start: 04/28/23 10:41 Freq: Status: Active Protocol: Document 06/26/23 12:14 NM (Rec: 06/26/23 13:01 NM [id number]) Therapeutic Exercises Standing Exercises HSC Side left Resistance 4# ankle weight Equipment Used //bar for UE support Reps/Minutes 2x10 Comments cue for no trunk flex, kick your butt Knee flexion mobilization/stretch Standing Exercise Name LLE elevated on 6 step, then fwd into knee flex stretch Side left Equipment Used 2nd step, B hand rail use Reps/Minutes 5x15 Comments cue for form; up to 120 deg knee flex Side steps Standing Exercise Name Side steps Side bilateral Resistance green TB Equipment Used //bar Reps/Minutes 3x10 ft Comments cued slight knee flex, bigger steps Step up Standing Exercise Name 4 step Side left Equipment Used L hand rail used, LLE leading; flat L hand on rail Reps/Minutes 2x10 Comments cued no R hip drop, less UE support Manual Therapy Treatment Soft Tissue Mobilization L knee Body Location quad, TFL Mobilization Type Instrument Assisted,Rolling, Sustained Pressure,Trigger Point Release Intensity/Depth Superficial Body Position Supine Comments For pain relief and to limit soft tissue restrictions. TFL/ RF very tender, trigger point at lateral quad near TFL. Decreased with sustained pressure. Instructed pt in rolling, massage, trigger point release for HEP Joint Mobilizations L knee Joint A-P on tibia for ext, P-A on tibia for flex Grade III Body Position Supine Reps/Duration 2x30 Comments Grade III mobilizations to increase knee flex and knee ext ROM. Knee flex 115 deg AROM, 118 deg after mobilization, knee ext to -1 deg with quad set Patella Direction superior/inferior, medial/ lateral Grade III Body Position Supine Reps/Duration 90 ea direction Comments To improve knee ext and flex mobility. Performed in various deg of knee flex Manual Techniques PROM Type L knee flex Body Position Supine Reps/Duration 10x10 Comments Supine quad stretch to pt tolerance (up to 120 deg, 118 deg consistently) Self-Care/Home Management Treatment Education Patient Education Home Exercise Program Other Education HEP: standing knee flexion stretch on stairs with family near and UE support, standing hamstring curl at counter with family near (add ankle wt). Educated on rolling/soft tissue mobilization to decrease soreness of L quad/ TFL; use of 4ww more frequently at home PT-OP-R Modalities Start: 05/30/23 15:01 Freq: Status: Active Protocol: Document 05/30/23 13:54 NM (Rec: 05/30/23 15:07 NM [id number]) Electric Stimulation Electric Stimulation Biphasic Body Location L quad Duration (Minutes) 10 Intensity 18 Frequency 50 Pulse Width 300 Contraction Type Normal Ramp 1.0 Comments 5/5 cycle due to time to maximize contractions Performed in sitting (LAQ), supine (quad sets, SAQ). Skin normal color, intact/dry before, during, after tmt. Skin check after 3 min and at end of session. PT-OP-T Assessment and Plan Start: 04/28/23 10:41 Freq: Status: Active Protocol: Document 06/26/23 12:14 NM (Rec: 06/26/23 13:01 NM [id number]) Physical Therapy Assessment Goals Seven Impairment gait Impairment Unable to complete 6 MWT at IE Short Term Goal (STG) Pt will be able to complete a 6 MWT using LRAD in order to demo improved gait mechanics and activity tolerance for community ambulation. 05/30/23: 798 ft with FWW STG Duration 6 weeks MET Halfway Goal (LTG) Pt will improve 6 MWT distance by at least 100 ft using LRAD in order to demo improved gait mechanics and activity tolerance for community ambulation. LTG Duration 12 weeks Six Impairment function Impairment LEFS 10 Short Term Goal (STG) Pt will improve LEFS score by at least 9 points (MCID) in order to demo improved activity tolerance and strength. 05/30/23: 53/80 STG Duration 6 weeks MET Halfway Goal (LTG) Pt will improve LEFS score by at least 18 points (2 MCID) in order to demo improved activity tolerance and strength. 05/30/23: 53/80 LTG Duration 12 weeks MET Five Impairment Balance, function Impairment TUG 41.5 sec with FWW Short Term Goal (STG) Pt will decrease TUG score time to at least 30 seconds or less using LRAD in order to demo improved balance during gait and transfers, to decrease fall risk. 05/30/23: 21 sec STG Duration 6 weeks MET Youth Accommodation Support Worker Goal (LTG) Pt will decrease TUG score time to at least 15 seconds or less using LRAD in order to demo improved balance during gait and transfers, to decrease fall risk. LTG Duration 12 weeks Four Impairment strength Impairment Knee flex 3/5 Short Term Goal (STG) Pt will improve L knee flex strength to at least 4-/5 in order to perform stairs and for propulsion during gait. 05/30/23: 4/5 knee flex STG Duration 6 weeks MET [employer]ommodation Support Worker Goal (LTG) Pt will improve L knee flex strength to at least 4+/5 in order to perform stairs and for propulsion during gat. LTG Duration 12 weeks Three Impairment Strength Impairment Knee ext 3/5 Short Term Goal (STG) Pt will improve L knee ext strength to at least 4-/5 in order to demo improved quad control for stability and TKE for gait. 05/30/23: 4-/5 MMT STG Duration 6 weeks MET Halfway Goal (LTG) Pt will improve L knee ext strength to at least 4+/5 in order to demo improved quad control for stability and TKE for gait. LTG Duration 12 weeks Two Impairment ROM Impairment Knee ext 10 deg AROM (lacking) Short Term Goal (STG) Pt will improve L knee ext to at least 5 deg AROM in order to reach terminal knee extension during gait and improve knee stability during stairs/gait. 05/30/23: -5 deg knee ext but demos decreased quad activation STG Duration 6 weeks MET [employer]ommodation Support Worker Goal (LTG) Pt will improve L knee ext to at least 0 deg in order to reach terminal knee extension during gait and improve knee stabiltiy during stairs/gait. 06/26/23: 1 deg with quad set, heel elevated due to calf LTG Duration 12 weeks One Impairment ROM Impairment Knee flex 80 deg AROM Short Term Goal (STG) Pt will improve L knee flex to at least 100 deg AROM in order to demo improved knee flex ROM for stairs and gait. 06/16/23: 115 deg flex AROM 05/30/23: 110 deg flex AROM STG Duration 6 weeks MET [employer]ommodation Support Worker Goal (LTG) Pt will improve L knee flex to at least 115 deg AROM in order to demo improved knee flex ROM for stairs, gait, and to be comparable to RLE. 06/26/23: MET- 115 deg AROM pre- mob 118 post-mob LTG Duration 12 weeks Assessment Summary Assessment Pt continues to have limitations in L knee flex mobility; however, consistently 115 deg AROM prior to mobilization, 118 post mobilization. Initiated standing knee flexion stretch, up to 120 deg knee flex. Manual treatment to address pt reports of tissue restriction of L quad and TFL; relaxed with trigger point release. Initiated standing hamstring curl and continued with 4 step ups; verbal cues to prevent opposite hip drop and prevent trunk flexion compensation. Pt has increased dependence on BUE for support , alex with standing exercises. She demos improved tolerance for exercise compared to previous sessions. Pt would benefit from skilled PT for L knee mobility and progressive strengthening, gait and balance training in order to improve activity tolerance and return to PLOF. Physical Therapy Plan Frequency and Duration Frequency of Treatment 2x/Week Duration of treatment (weeks) 12 Plan of Care Start Date 04/28/23 Plan of Care End Date 07/21/23 Therapeutic Interventions Therapeutic Interventions Aquatic Therapy,Balance Training,Gait Training,Home Exercise Program,Joint Mobilizations,Manual Therapy, Neuromuscular Re-education, Patient/Caregiver Education, Self-Care/Home Management,Soft Tissue Mobilization,Taping, Therapeutic Activities, Therapeutic Exercises Modalities Cold Pack/Ice Massage,Electric Stimulation,Hot Packs, Iontophoresis,Ultrasound, Vasopneumatic Devices Next Visit Focus/Plan Next Note Type Treatment Note Next Visit Plan Next session: gait training with cane, 4 step up, squat without UE, standing knee flex mob; LAQ with 4# ankle wt vs cables, add knee flex mob with leg on step, trial mini-lunge and side steps; squat, step 4 with progress to 6. Continue bike if time. Review gait with 4WW and spc as tolerated Manual: soft tissue, no scar mgmt yet, gentle PROM with flex/ext PN in 2 visits
--- NOTE | 2023-07-02 16:19 | PT.OTN ---
Current Diagnoses Unilateral primary osteoarthritis, left knee (07/02/23) Physical Therapy Treatment Note PT-OP-A Visit Information Start: 04/28/23 10:41 Freq: Status: Active Protocol: Document 07/02/23 13:02 SW (Rec: 07/02/23 13:46 SW [id number]) Out-Patient Physical Therapy Visit Information Visit Information Visit Type Treatment Note Visit Note DOS: 04/18/23 4 visits post PN Pt Late Visit Start Time 13:11 Visit Stop Time 14:40 Visit Number 14 PT-OP-B Current Condition Start: 04/28/23 10:41 Freq: Status: Active Protocol: Document 04/28/23 10:42 NM (Rec: 04/28/23 11:40 NM [id number]) Current Condition History of Current Condition Onset Date 04/18/23 Current Complaints pain, swelling, sleep History of Current Condition Pt presents to clinic with FWW s/p L TKA on 04/19. She is seeing Dr. Patton for her knee. Currently, pt still has her post-op dressings still on and is WBAT with a FWW. Pt has B knee OA, which led to the replacement. She had no pre-op PT. Prior to surgery, she was able to ambulate up to 1/4 mi due to pain, which is a decrease from her baseline which was 1 mi. She is planning on having the R knee replaced in a few months. Pt has steps leading up to her home which is covered by a ramp. She used a FWW for gait prior to surgery due to feeling like she had poor balance; she also has a spc that she uses occasional (not since surgery). Pt reports compliance with HEP from hospital, performing exercises 1-2x/day. She does report some tingling in her LLE down to her foot, but this was occuring prior to her TKA. Her main compliants are pain, weakness, swelling, stiffness, and poor sleep since her surgery. Future Testing and Treatments Planned Follow up 04/[address] Patton Treatment Goals Patient/Caregiver Goals Decrease pain, improve knee motion and strength, be able to sleep without discomfort Prior Functional Status Baseline Function- ADL's Independent Baseline Function- Mobility Independent Baseline Function- Gait FWW or spc for balance; up to 1/4 mi for gait distance Baseline Function- Recreation/Hobbies Gardening (hands and knees) Baseline Function- Other Stairs (no issue) Current Functional Impairments (Reported) Functional Limitations- Mobility/Gait No stairs due to limited motion and pain, no more than household ambulation Functional Limitations- Recreation/ Unable to garden Hobbies PT-OP-C Subjective Start: 04/28/23 10:41 Freq: Status: Active Protocol: Document 07/02/23 13:02 SW (Rec: 07/02/23 16:19 SW [id number]) OP-PT Subjective Patient Comments Patient Comments Pt reports has tried using 4ww more, but has not used today. PT-OP-D Balance Start: 04/28/23 10:41 Freq: Status: Active Protocol: Document 04/28/23 10:42 NM (Rec: 04/28/23 11:56 NM [id number]) OP-PT Balance Assessment Sitting Balance Static Sitting Balance Ability Normal Dynamic Sitting Balance Ability Normal Standing Balance Static Standing Balance Ability Good Dynamic Standing Balance Ability Fair Device Used FWW Standing Balance Comments Occasional CGA to steady during gait, changing JUVENCIO Denise Fall Scale Copyright Permission PT-OP-E Functional Tests Start: 04/28/23 10:41 Freq: Status: Active Protocol: Document 04/28/23 10:42 NM (Rec: 04/28/23 11:40 NM [id number]) Functional Tests Timed Up and Go (TUG) Score 41.5 sec Comments FWW, SBA PT-OP-F Manual Assessment Start: 04/28/23 10:41 Freq: Status: Active Protocol: Document 04/28/23 10:42 NM (Rec: 04/28/23 11:40 NM [id number]) Manual Assessments Soft Tissue Assessment Soft Tissue Mobility Assessment Soft tissue restrictions of L hamstring. Edema in L ankle, knee and calf. Will need scar mobilization to prevent adhesions once scar is closed and healed. Joint Mobility Assessment Joint Mobility Assessment Empty end feel with PROM, limited mobility PT-OP-G Mobility & Gait Start: 04/28/23 10:41 Freq: Status: Active Protocol: Document 04/28/23 10:42 NM (Rec: 04/28/23 11:40 NM [id number]) OP Gait Assessment Gait Gait Assistance Required: Standby Assistance Distance (Feet) 200 Able to Maintain Weight Bearing Status Yes During Gait Assistive Devices Assistive Device Gait Belt,Straight Cane,Front Wheeled Walker Gait Deviations General Gait Pattern Antalgic,Decreased Stride Length,Step-to Gait Factors Limiting Gait Function Factors Limiting Gait Function Decreased Activity Tolerance, Decreased Strength,Limited Range of Motion,Pain,Poor Balance Comments Gait Comments Primarily uses FWW for gait. Began using FWW for gait prior in Jun 2022 prior to surgery due to poor balance. PT-OP-H Neuro Start: 04/28/23 10:41 Freq: Status: Active Protocol: Document 04/28/23 10:42 NM (Rec: 04/28/23 11:40 NM [id number]) Sensation Evaluation Gross Sensation Gross Sensation WNL Comments Summary Comments LLE intact to light touch sensation in all dermatomes. PT-OP-J Posture/Palpation/Skin Start: 04/28/23 10:41 Freq: Status: Active Protocol: Document 04/28/23 10:42 NM (Rec: 04/28/23 11:40 NM [id number]) Posture Evaluation Position Standing Evaluation View Posterior Pelvis Posture Anteriorly Tilted Weight Distribution Weight Shifted Right,Decreased Wt.Bear on (L) Hip Posture (L) Externally Rotated Knee Posture (L) Genu Valgus,(R) Genu Valgus Patellar Posture (R) Superior Palpation Assessment Location L knee Palpation Location posterior knee, posterior calf , lateral and medial knee Palpation Findings Edema,Soft Tissue Tightness, Tenderness Palpation Details Tenderness and edema along posterior knee and calf. No sign of DVT Tenderness and edema along medial and lateral knee near patella, femoral condyles near joint line Skin Assessment Edema Assessment L ankle Edema Type Non-Pitting Edema Degree 2+ Edema Appearance Discolored,Puffy Circumference Measurement L knee Location 5 cm above patella (60cm), sub patella (51 cm), 10 cm below patella (49 cm) Comments L malleoli (27 cm) with excess on lateral side, at patella ( 56.5 cm) Incisional Assessment Incision Appearance/Comments Bandage is CDI. Still wrapped so could not formally assess incision. No signs of infection around bandage. Will assess further once bandage removed PT-OP-K Range of Motion Start: 04/28/23 10:41 Freq: Status: Active Protocol: Document 05/30/23 13:54 NM (Rec: 05/30/23 15:00 NM [id number]) Knee Goniometric Range of Motion Knee Left Knee ROM WFL No Patient Position Supine Flexion Active (degrees) 110 Flexion Passive (degrees) 112 Extension Active (degrees) 5 Extension Passive (degrees) 4 Comments 05/30/23: lacking 5 deg ext with active quad contraction @IE: flex 80 deg ext -10 deg PT-OP-M Strength Start: 04/28/23 10:41 Freq: Status: Active Protocol: Document 05/30/23 13:54 NM (Rec: 05/30/23 15:00 NM [id number]) Knee Strength Knee Manual Muscle Testing Left Flexion (S2) 4 Good Extension (L3) 4- Good- Comments @ IE: flex and ext 3/5 PT-OP-Q Treatments Start: 04/28/23 10:41 Freq: Status: Active Protocol: Document 07/02/23 13:02 SW (Rec: 07/02/23 13:46 SW [id number]) Therapeutic Exercises Standing Exercises HSC Side left Resistance 4# ankle weight Equipment Used Elevated mat table for UE support Reps/Minutes 2x10 Comments cue for no trunk flex, kick your butt Knee flexion mobilization/stretch Standing Exercise Name LLE elevated on 6 step, then fwd into knee flex stretch Side left Equipment Used 2nd step, B hand rail use Reps/Minutes 5x15 Comments cue for form; up to 120 deg knee flex Step up Standing Exercise Name 4 step Side left Equipment Used L hand rail used, LLE leading; flat L hand on rail Reps/Minutes 2x10 Comments cued no R hip drop, less UE support Gait Training Gait Activity SPC Description Gait Device Used SPC Level of Assistance close SBA Surface stable Distance/Duration 2 x 120 ft Treatment Focus gait mechanics with AD Comments fit SPC to pt, good coordination after initial cues, cues for equal step, weight bearing into LLE Manual Therapy Treatment Soft Tissue Mobilization L knee Body Location quad, TFL Mobilization Type Instrument Assisted,Rolling, Sustained Pressure,Trigger Point Release Intensity/Depth Superficial Body Position Supine Comments For pain relief and to limit soft tissue restrictions. TFL/ RF very tender, trigger point at lateral quad near TFL. Decreased with sustained pressure. Instructed pt in rolling, massage, trigger point release for HEP PT-OP-R Modalities Start: 05/30/23 15:01 Freq: Status: Active Protocol: Document 05/30/23 13:54 NM (Rec: 05/30/23 15:07 NM [id number]) Electric Stimulation Electric Stimulation Biphasic Body Location L quad Duration (Minutes) 10 Intensity 18 Frequency 50 Pulse Width 300 Contraction Type Normal Ramp 1.0 Comments 5/5 cycle due to time to maximize contractions Performed in sitting (LAQ), supine (quad sets, SAQ). Skin normal color, intact/dry before, during, after tmt. Skin check after 3 min and at end of session. PT-OP-T Assessment and Plan Start: 04/28/23 10:41 Freq: Status: Active Protocol: Document 07/02/23 13:02 SW (Rec: 07/02/23 13:46 SW [id number]) Physical Therapy Assessment Goals Seven Impairment gait Impairment Unable to complete 6 MWT at IE Short Term Goal (STG) Pt will be able to complete a 6 MWT using LRAD in order to demo improved gait mechanics and activity tolerance for community ambulation. 05/30/23: 798 ft with FWW STG Duration 6 weeks MET Assisted Goal (LTG) Pt will improve 6 MWT distance by at least 100 ft using LRAD in order to demo improved gait mechanics and activity tolerance for community ambulation. LTG Duration 12 weeks Six Impairment function Impairment LEFS 1080 Short Term Goal (STG) Pt will improve LEFS score by at least 9 points (MCID) in order to demo improved activity tolerance and strength. 05/30/23: 53/80 STG Duration 6 weeks MET Assisted Goal (LTG) Pt will improve LEFS score by at least 18 points (2 MCID) in order to demo improved activity tolerance and strength. 05/30/23: 53/80 LTG Duration 12 weeks MET Five Impairment Balance, function Impairment TUG 41.5 sec with FWW Short Term Goal (STG) Pt will decrease TUG score time to at least 30 seconds or less using LRAD in order to demo improved balance during gait and transfers, to decrease fall risk. 05/30/23: 21 sec STG Duration 6 weeks MET Assisted Goal (LTG) Pt will decrease TUG score time to at least 15 seconds or less using LRAD in order to demo improved balance during gait and transfers, to decrease fall risk. LTG Duration 12 weeks Four Impairment strength Impairment Knee flex 3/5 Short Term Goal (STG) Pt will improve L knee flex strength to at least 4-/5 in order to perform stairs and for propulsion during gait. 05/30/23: 4/5 knee flex STG Duration 6 weeks MET Business Analyst Goal (LTG) Pt will improve L knee flex strength to at least 4+/5 in order to perform stairs and for propulsion during gat. LTG Duration 12 weeks Three Impairment Strength Impairment Knee ext 3/5 Short Term Goal (STG) Pt will improve L knee ext strength to at least 4-/5 in order to demo improved quad control for stability and TKE for gait. 05/30/23: 4-/5 MMT STG Duration 6 weeks MET Assisted Goal (LTG) Pt will improve L knee ext strength to at least 4+/5 in order to demo improved quad control for stability and TKE for gait. LTG Duration 12 weeks Two Impairment ROM Impairment Knee ext 10 deg AROM (lacking) Short Term Goal (STG) Pt will improve L knee ext to at least 5 deg AROM in order to reach terminal knee extension during gait and improve knee stability during stairs/gait. 05/30/23: -5 deg knee ext but demos decreased quad activation STG Duration 6 weeks MET Assisted Goal (LTG) Pt will improve L knee ext to at least 0 deg in order to reach terminal knee extension during gait and improve knee stabiltiy during stairs/gait. 06/26/23: 1 deg with quad set, heel elevated due to calf LTG Duration 12 weeks One Impairment ROM Impairment Knee flex 80 deg AROM Short Term Goal (STG) Pt will improve L knee flex to at least 100 deg AROM in order to demo improved knee flex ROM for stairs and gait. 06/16/23: 115 deg flex AROM 05/30/23: 110 deg flex AROM STG Duration 6 weeks MET Assisted Goal (LTG) Pt will improve L knee flex to at least 115 deg AROM in order to demo improved knee flex ROM for stairs, gait, and to be comparable to RLE. 06/26/23: MET- 115 deg AROM pre- mob 118 post-mob LTG Duration 12 weeks Assessment Summary Assessment Initiated gait training this session with SPC, pt able to coordinate AD well after initial cues, cues for equal weight bearing in LLE and equal stepping, pt continues ambulating with antalgic gait and would benefit from continued gait training next session. Physical Therapy Plan Frequency and Duration Frequency of Treatment 2x/Week Duration of treatment (weeks) 12 Plan of Care Start Date 04/28/23 Plan of Care End Date 07/21/23 Therapeutic Interventions Therapeutic Interventions Aquatic Therapy,Balance Training,Gait Training,Home Exercise Program,Joint Mobilizations,Manual Therapy, Neuromuscular Re-education, Patient/Caregiver Education, Self-Care/Home Management,Soft Tissue Mobilization,Taping, Therapeutic Activities, Therapeutic Exercises Modalities Cold Pack/Ice Massage,Electric Stimulation,Hot Packs, Iontophoresis,Ultrasound, Vasopneumatic Devices Next Visit Focus/Plan Next Note Type Treatment Note Next Visit Plan Next session: gait training with cane, 4 step up, squat without UE, standing knee flex mob; LAQ with 4# ankle wt vs cables, add knee flex mob with leg on step, trial mini-lunge and side steps; squat, step 4 with progress to 6. Continue bike if time. Review gait with 4WW and spc as tolerated Manual: soft tissue, no scar mgmt yet, gentle PROM with flex/ext PN in 2 visits
--- NOTE | 2023-07-04 13:31 | PT.OTN ---
Current Diagnoses Unilateral primary osteoarthritis, left knee (07/04/23) Physical Therapy Treatment Note PT-OP-A Visit Information Start: 04/28/23 10:41 Freq: Status: Active Protocol: Document 07/04/23 12:16 NM (Rec: 07/04/23 13:28 NM [id number]) Out-Patient Physical Therapy Visit Information Visit Information Visit Type Progress Note Visit Note DOS: 04/18/23 Visit Start Time 12:16 Visit Stop Time 13:01 Visit Number 15 Evaluation Information Evaluation Date 04/28/23 Precautions Precautions Post-op 04/18/23 (TKA) Fall risk PT-OP-B Current Condition Start: 04/28/23 10:41 Freq: Status: Active Protocol: Document 04/28/23 10:42 NM (Rec: 04/28/23 11:40 NM [id number]) Current Condition History of Current Condition Onset Date 04/18/23 Current Complaints pain, swelling, sleep History of Current Condition Pt presents to clinic with FWW s/p L TKA on 04/19. She is seeing Dr. Patton for her knee. Currently, pt still has her post-op dressings still on and is WBAT with a FWW. Pt has B knee OA, which led to the replacement. She had no pre-op PT. Prior to surgery, she was able to ambulate up to 1/4 mi due to pain, which is a decrease from her baseline which was 1 mi. She is planning on having the R knee replaced in a few months. Pt has steps leading up to her home which is covered by a ramp. She used a FWW for gait prior to surgery due to feeling like she had poor balance; she also has a spc that she uses occasional (not since surgery). Pt reports compliance with HEP from hospital, performing exercises 1-2x/day. She does report some tingling in her LLE down to her foot, but this was occuring prior to her TKA. Her main compliants are pain, weakness, swelling, stiffness, and poor sleep since her surgery. Future Testing and Treatments Planned Follow up 04/[address] Patton Treatment Goals Patient/Caregiver Goals Decrease pain, improve knee motion and strength, be able to sleep without discomfort Prior Functional Status Baseline Function- ADL's Independent Baseline Function- Mobility Independent Baseline Function- Gait FWW or spc for balance; up to 1/4 mi for gait distance Baseline Function- Recreation/Hobbies Gardening (hands and knees) Baseline Function- Other Stairs (no issue) Current Functional Impairments (Reported) Functional Limitations- Mobility/Gait No stairs due to limited motion and pain, no more than household ambulation Functional Limitations- Recreation/ Unable to garden Hobbies PT-OP-C Subjective Start: 04/28/23 10:41 Freq: Status: Active Protocol: Document 07/04/23 12:16 NM (Rec: 07/04/23 13:28 NM [id number]) OP-PT Subjective Patient Comments Patient Comments Presents without any pain, just L knee soreness. She has been trying 4ww at home, but is scared to perform outside of the house due to fear it will move away too fast. She also reports tenderness along L lateral quad. Has been rolling out PT-OP-D Balance Start: 04/28/23 10:41 Freq: Status: Active Protocol: Document 04/28/23 10:42 NM (Rec: 04/28/23 11:56 NM [id number]) OP-PT Balance Assessment Sitting Balance Static Sitting Balance Ability Normal Dynamic Sitting Balance Ability Normal Standing Balance Static Standing Balance Ability Good Dynamic Standing Balance Ability Fair Device Used FWW Standing Balance Comments Occasional CGA to steady during gait, changing JUVENCIO Denise Fall Scale Copyright Permission PT-OP-E Functional Tests Start: 04/28/23 10:41 Freq: Status: Active Protocol: Document 04/28/23 10:42 NM (Rec: 04/28/23 11:40 NM [id number]) Functional Tests Timed Up and Go (TUG) Score 41.5 sec Comments FWW, SBA PT-OP-F Manual Assessment Start: 04/28/23 10:41 Freq: Status: Active Protocol: Document 04/28/23 10:42 NM (Rec: 04/28/23 11:40 NM [id number]) Manual Assessments Soft Tissue Assessment Soft Tissue Mobility Assessment Soft tissue restrictions of L hamstring. Edema in L ankle, knee and calf. Will need scar mobilization to prevent adhesions once scar is closed and healed. Joint Mobility Assessment Joint Mobility Assessment Empty end feel with PROM, limited mobility PT-OP-G Mobility & Gait Start: 04/28/23 10:41 Freq: Status: Active Protocol: Document 04/28/23 10:42 NM (Rec: 04/28/23 11:40 NM [id number]) OP Gait Assessment Gait Gait Assistance Required: Standby Assistance Distance (Feet) 200 Able to Maintain Weight Bearing Status Yes During Gait Assistive Devices Assistive Device Gait Belt,Straight Cane,Front Wheeled Walker Gait Deviations General Gait Pattern Antalgic,Decreased Stride Length,Step-to Gait Factors Limiting Gait Function Factors Limiting Gait Function Decreased Activity Tolerance, Decreased Strength,Limited Range of Motion,Pain,Poor Balance Comments Gait Comments Primarily uses FWW for gait. Began using FWW for gait prior in Jun 2022 prior to surgery due to poor balance. PT-OP-H Neuro Start: 04/28/23 10:41 Freq: Status: Active Protocol: Document 04/28/23 10:42 NM (Rec: 04/28/23 11:40 NM [id number]) Sensation Evaluation Gross Sensation Gross Sensation WNL Comments Summary Comments LLE intact to light touch sensation in all dermatomes. PT-OP-J Posture/Palpation/Skin Start: 04/28/23 10:41 Freq: Status: Active Protocol: Document 04/28/23 10:42 NM (Rec: 04/28/23 11:40 NM [id number]) Posture Evaluation Position Standing Evaluation View Posterior Pelvis Posture Anteriorly Tilted Weight Distribution Weight Shifted Right,Decreased Wt.Bear on (L) Hip Posture (L) Externally Rotated Knee Posture (L) Genu Valgus,(R) Genu Valgus Patellar Posture (R) Superior Palpation Assessment Location L knee Palpation Location posterior knee, posterior calf , lateral and medial knee Palpation Findings Edema,Soft Tissue Tightness, Tenderness Palpation Details Tenderness and edema along posterior knee and calf. No sign of DVT Tenderness and edema along medial and lateral knee near patella, femoral condyles near joint line Skin Assessment Edema Assessment L ankle Edema Type Non-Pitting Edema Degree 2+ Edema Appearance Discolored,Puffy Circumference Measurement L knee Location 5 cm above patella (60cm), sub patella (51 cm), 10 cm below patella (49 cm) Comments L malleoli (27 cm) with excess on lateral side, at patella ( 56.5 cm) Incisional Assessment Incision Appearance/Comments Bandage is CDI. Still wrapped so could not formally assess incision. No signs of infection around bandage. Will assess further once bandage removed PT-OP-K Range of Motion Start: 04/28/23 10:41 Freq: Status: Active Protocol: Document 07/04/23 12:16 NM (Rec: 07/04/23 13:28 NM [id number]) Knee Goniometric Range of Motion Knee Left Knee ROM WFL No Patient Position Supine Flexion Active (degrees) 110 Flexion Passive (degrees) 112 Extension Active (degrees) 5 Extension Passive (degrees) 4 Comments 07/04/23: lacks 3 deg ext with active quad contraction; 115 AROM knee flex 05/30/23: lacking 5 deg ext with active quad contraction @IE: flex 80 deg ext -10 deg PT-OP-M Strength Start: 04/28/23 10:41 Freq: Status: Active Protocol: Document 07/04/23 12:16 NM (Rec: 07/04/23 13:28 NM [id number]) Hip Strength Hip Manual Muscle Testing Right Flexion (L2) 4- Good- Abduction 4- Good- Adduction 4- Good- External Rotation 3+ Fair+ Internal Rotation 3+ Fair+ Left Flexion (L2) 3+ Fair+ Abduction 3+ Fair+ External Rotation 3+ Fair+ Internal Rotation 3+ Fair+ Comments Assessed in sitting due to knee pain 07/04/23: 4-/5 for all motions, no pain Knee Strength Knee Manual Muscle Testing Left Flexion (S2) 4 Good Extension (L3) 4- Good- Comments 07/24/23: 4/5 @ IE: flex and ext 3/5 PT-OP-Q Treatments Start: 04/28/23 10:41 Freq: Status: Active Protocol: Document 07/04/23 12:16 NM (Rec: 07/04/23 13:28 NM [id number]) Therapeutic Exercises Standing Exercises Lunge Standing Exercise Name Mini lunge (both knees flexing ) Side bilateral Resistance AROM Equipment Used ballet bar 1 UE support for balance Reps/Minutes 2x8 ea Comments fatiguing; cued for L knee flex Knee flexion mobilization/stretch Standing Exercise Name LLE elevated on 6 step, then fwd into knee flex stretch Side left Equipment Used 2nd step, B hand rail use Reps/Minutes 3x10 Comments cue for form; up to 120 deg knee flex Step up Standing Exercise Name 4 step, 6 step (re-trialed) Side left Equipment Used L flat hand rail Reps/Minutes 2x8, 1x5 on 6 step Comments cont to require inc UE support on 6; improved level hips 4 Gait Training Gait Activity SPC Description Gait Device Used SPC Level of Assistance close SBA Surface stable Distance/Duration 250 ft Treatment Focus gait mechanics with AD Comments Using spc, pt ambulating around gym to normalize mechanics. Demos R trunk lean with L stance, quad avoidant stance phase on LLE. Cued for soft knee during L stance for improved stability, heel strike to promote knee flex during swing and allow for improved weight acceptance. Performs 2 pt pattern with minimal cues for coordination Manual Therapy Treatment Soft Tissue Mobilization L knee Body Location quad, TFL Mobilization Type Instrument Assisted,Myofascial Release,Rolling,Sustained Pressure,Trigger Point Release Intensity/Depth Superficial Body Position Supine Comments For pain relief and to limit soft tissue restrictions. TFL very tender, trigger point at lateral quad. Decreased with sustained pressure, instrument assisted myofascial release. Pt reports improvement in symptoms s/p manual treatment. Instructed pt to trial heat at area for muscle relaxation Joint Mobilizations L knee Joint A-P on tibia for ext, P-A on tibia for flex Grade III Body Position Supine Reps/Duration 2x30 Comments Grade III mobilizations to increase knee flex and knee ext ROM. Knee flex 115 deg AROM, 118 deg after mobilization, knee ext to -1 deg with quad set Patella Direction superior/inferior, medial/ lateral Grade III Body Position Supine Reps/Duration 90 ea direction Comments To improve knee ext and flex mobility. Performed in various deg of knee flex Manual Techniques PROM Type L knee flex Body Position Supine Reps/Duration 10x10 Comments Supine quad stretch to pt tolerance (up to 120 deg, 118 deg consistently) Neuro Re-Education Treatment Balance Activities Narrow JUVENCIO Details no UE support Surface stable surface Comments Stance for time, 2x30 Other Activities TUG Details IND, using FWW Reps/Duration 1 rep Comments 18.4 seconds Self-Care/Home Management Treatment Education Patient Education Home Exercise Program Other Education HEP: lunge with UE support, STS with weight (light) PT-OP-R Modalities Start: 05/30/23 15:01 Freq: Status: Active Protocol: Document 05/30/23 13:54 NM (Rec: 05/30/23 15:07 NM [id number]) Electric Stimulation Electric Stimulation Biphasic Body Location L quad Duration (Minutes) 10 Intensity 18 Frequency 50 Pulse Width 300 Contraction Type Normal Ramp 1.0 Comments 5/5 cycle due to time to maximize contractions Performed in sitting (LAQ), supine (quad sets, SAQ). Skin normal color, intact/dry before, during, after tmt. Skin check after 3 min and at end of session. PT-OP-T Assessment and Plan Start: 04/28/23 10:41 Freq: Status: Active Protocol: Document 07/04/23 12:16 NM (Rec: 07/04/23 13:28 NM [id number]) Physical Therapy Assessment Goals Seven Impairment gait Impairment Unable to complete 6 MWT at IE Short Term Goal (STG) Pt will be able to complete a 6 MWT using LRAD in order to demo improved gait mechanics and activity tolerance for community ambulation. 05/30/23: 798 ft with FWW STG Duration 6 weeks MET [employer] Goal (LTG) Pt will improve 6 MWT distance by at least 100 ft using LRAD in order to demo improved gait mechanics and activity tolerance for community ambulation. LTG Duration 12 weeks Six Impairment function Impairment LEFS 10 Short Term Goal (STG) Pt will improve LEFS score by at least 9 points (MCID) in order to demo improved activity tolerance and strength. 05/30/23: 53/80 STG Duration 6 weeks MET Care Home Goal (LTG) Pt will improve LEFS score by at least 18 points (2 MCID) in order to demo improved activity tolerance and strength. 05/30/23: 53/80 LTG Duration 12 weeks MET Five Impairment Balance, function Impairment TUG 41.5 sec with FWW Short Term Goal (STG) Pt will decrease TUG score time to at least 30 seconds or less using LRAD in order to demo improved balance during gait and transfers, to decrease fall risk. 07/04/23: 18.4 sec 05/30/23: 21 sec STG Duration 6 weeks MET [employer] Goal (LTG) Pt will decrease TUG score time to at least 15 seconds or less using LRAD in order to demo improved balance during gait and transfers, to decrease fall risk. 07/04/23: 18.4 sec LTG Duration 12 weeks PROGRESSING Four Impairment strength Impairment Knee flex 3/5 Short Term Goal (STG) Pt will improve L knee flex strength to at least 4-/5 in order to perform stairs and for propulsion during gait. 05/30/23: 4/5 knee flex STG Duration 6 weeks MET [employer] Goal (LTG) Pt will improve L knee flex strength to at least 4+/5 in order to perform stairs and for propulsion during gait. 07/04/23: 4/5 knee flex MMT LTG Duration 12 weeks PROGRESSING Three Impairment Strength Impairment Knee ext 3/5 Short Term Goal (STG) Pt will improve L knee ext strength to at least 4-/5 in order to demo improved quad control for stability and TKE for gait. 05/30/23: 4-/5 MMT STG Duration 6 weeks MET Care Home Goal (LTG) Pt will improve L knee ext strength to at least 4+/5 in order to demo improved quad control for stability and TKE for gait. 07/04/24: 4/5 knee ext MMT LTG Duration 12 weeks PROGRESSING Two Impairment ROM Impairment Knee ext 10 deg AROM (lacking) Short Term Goal (STG) Pt will improve L knee ext to at least 5 deg AROM in order to reach terminal knee extension during gait and improve knee stability during stairs/gait. 05/30/23: -5 deg knee ext but demos decreased quad activation STG Duration 6 weeks MET [employer] Goal (LTG) Pt will improve L knee ext to at least 0 deg in order to reach terminal knee extension during gait and improve knee stabiltiy during stairs/gait. 07/04/23: 3 with quad set 06/26/23: 1 deg with quad set, heel elevated due to calf LTG Duration 12 weeks PROGRESSING One Impairment ROM Impairment Knee flex 80 deg AROM Short Term Goal (STG) Pt will improve L knee flex to at least 100 deg AROM in order to demo improved knee flex ROM for stairs and gait. 06/16/23: 115 deg flex AROM 05/30/23: 110 deg flex AROM STG Duration 6 weeks MET [employer] Goal (LTG) Pt will improve L knee flex to at least 115 deg AROM in order to demo improved knee flex ROM for stairs, gait, and to be comparable to RLE. 07/04/23: 115 AROM 06/26/23: MET- 115 deg AROM pre- mob 118 post-mob LTG Duration 12 weeks MET Progress Towards Goals Progress Towards Goals Progressing Toward Goals,Goals Met Progress Comments Progressing toward ROM, gait, strength, balance goals. Met STGs for ROM, strength. Assessment Summary Assessment Pt is consistently using FWW for ambulation, tries using the 4ww at home but does not feel comfortable using for community ambulation yet. PT and pt discussed having pt transition more fully to 4ww over next few weeks as pt begins to become more comfortable and with further gait training. During session, pt using spc with 2 pt gait pattern and close SBA. Demos R trunk lean due to poor weight acceptance on LLE during stance, quicker stance time. Pt cued for normal mechanics, smaller step to allow for longer L stance. Pt decreased TUG time to 18 seconds using fww. Initiated standing minilunges with UE support to promote knee flexion and improve quad/glute strength. Pt continues to be most limited in quad and glute strength, which affects her ability to ambulate using less stable AD or perform stairs. Manual treatment to decrease pain symptoms at L lateral quad near TFL. Pt compliant with HEP and progressing toward strength goals. Pt has been seen since April 2023 s/p L TKA. She is progressing toward goals and continues to demonstrate improvements in L knee ROM and strength. Currently 115 deg knee flexion consistently. Progressing at 4/5 L knee flex MMT. She has decreased her TUG time, but continues to use FWW despite ability to safely use 4ww. Pt will be progressed safely to 4ww then spc as tolerated. She would benefit from further LLE strengthening, balance and gait training to improve activity tolerance, decrease fall risk, and return to PLOF. Physical Therapy Plan Frequency and Duration Frequency of Treatment 2x/Week Duration of treatment (weeks) 12 Plan of Care Start Date 04/28/23 Plan of Care End Date 07/21/23 Therapeutic Interventions Therapeutic Interventions Aquatic Therapy,Balance Training,Gait Training,Home Exercise Program,Joint Mobilizations,Manual Therapy, Neuromuscular Re-education, Patient/Caregiver Education, Self-Care/Home Management,Soft Tissue Mobilization,Taping, Therapeutic Activities, Therapeutic Exercises Modalities Cold Pack/Ice Massage,Electric Stimulation,Hot Packs, Iontophoresis,Ultrasound, Vasopneumatic Devices Next Visit Focus/Plan Next Note Type Treatment Note Next Visit Plan Next session: gait training with cane, 4 step up, Leg press, standing knee flex mob; progress LAQ with 4# ankle wt vs cables, add knee flex mob with leg on step, trial mini- lunge and side steps; squat, step 4 with progress to 6. Continue bike if time. Review gait with 4WW and spc as tolerated Manual: soft tissue, no scar mgmt yet, gentle PROM with flex/ext PN in on 07/14
--- NOTE | 2023-07-08 13:00 | PT.OTN ---
Current Diagnoses Unilateral primary osteoarthritis, left knee (07/08/23) Physical Therapy Treatment Note PT-OP-A Visit Information Start: 04/28/23 10:41 Freq: Status: Active Protocol: Document 07/08/23 12:16 SP (Rec: 07/08/23 13:04 SP [id number]) Out-Patient Physical Therapy Visit Information Visit Information Visit Type Treatment Note Visit Note DOS: 04/18/23 2/10 post PN Visit Start Time 12:16 Visit Stop Time 13:00 Visit Number 16 Number of NUT STEAMER Visits 1 Evaluation Information Evaluation Date 04/28/23 Precautions Precautions Post-op 04/18/23 (TKA) Fall risk PT-OP-B Current Condition Start: 04/28/23 10:41 Freq: Status: Active Protocol: Document 04/28/23 10:42 NM (Rec: 04/28/23 11:40 NM [id number]) Current Condition History of Current Condition Onset Date 04/18/23 Current Complaints pain, swelling, sleep History of Current Condition Pt presents to clinic with FWW s/p L TKA on 04/19. She is seeing Dr. Patton for her knee. Currently, pt still has her post-op dressings still on and is WBAT with a FWW. Pt has B knee OA, which led to the replacement. She had no pre-op PT. Prior to surgery, she was able to ambulate up to 1/4 mi due to pain, which is a decrease from her baseline which was 1 mi. She is planning on having the R knee replaced in a few months. Pt has steps leading up to her home which is covered by a ramp. She used a FWW for gait prior to surgery due to feeling like she had poor balance; she also has a spc that she uses occasional (not since surgery). Pt reports compliance with HEP from hospital, performing exercises 1-2x/day. She does report some tingling in her LLE down to her foot, but this was occuring prior to her TKA. Her main compliants are pain, weakness, swelling, stiffness, and poor sleep since her surgery. Future Testing and Treatments Planned Follow up 04/[address] Patton Treatment Goals Patient/Caregiver Goals Decrease pain, improve knee motion and strength, be able to sleep without discomfort Prior Functional Status Baseline Function- ADL's Independent Baseline Function- Mobility Independent Baseline Function- Gait FWW or spc for balance; up to 1/4 mi for gait distance Baseline Function- Recreation/Hobbies Gardening (hands and knees) Baseline Function- Other Stairs (no issue) Current Functional Impairments (Reported) Functional Limitations- Mobility/Gait No stairs due to limited motion and pain, no more than household ambulation Functional Limitations- Recreation/ Unable to garden Hobbies PT-OP-C Subjective Start: 04/28/23 10:41 Freq: Status: Active Protocol: Document 07/08/23 12:16 SP (Rec: 07/08/23 13:04 SP [id number]) OP-PT Subjective Patient Comments Patient Comments Pt reports felt good after last tx working on use of SPC. PT-OP-D Balance Start: 04/28/23 10:41 Freq: Status: Active Protocol: Document 04/28/23 10:42 NM (Rec: 04/28/23 11:56 NM [id number]) OP-PT Balance Assessment Sitting Balance Static Sitting Balance Ability Normal Dynamic Sitting Balance Ability Normal Standing Balance Static Standing Balance Ability Good Dynamic Standing Balance Ability Fair Device Used FWW Standing Balance Comments Occasional CGA to steady during gait, changing JUVENCIO Denise Fall Scale Copyright Permission PT-OP-E Functional Tests Start: 04/28/23 10:41 Freq: Status: Active Protocol: Document 04/28/23 10:42 NM (Rec: 04/28/23 11:40 NM [id number]) Functional Tests Timed Up and Go (TUG) Score 41.5 sec Comments FWW, SBA PT-OP-F Manual Assessment Start: 04/28/23 10:41 Freq: Status: Active Protocol: Document 04/28/23 10:42 NM (Rec: 04/28/23 11:40 NM [id number]) Manual Assessments Soft Tissue Assessment Soft Tissue Mobility Assessment Soft tissue restrictions of L hamstring. Edema in L ankle, knee and calf. Will need scar mobilization to prevent adhesions once scar is closed and healed. Joint Mobility Assessment Joint Mobility Assessment Empty end feel with PROM, limited mobility PT-OP-G Mobility & Gait Start: 04/28/23 10:41 Freq: Status: Active Protocol: Document 04/28/23 10:42 NM (Rec: 04/28/23 11:40 NM [id number]) OP Gait Assessment Gait Gait Assistance Required: Standby Assistance Distance (Feet) 200 Able to Maintain Weight Bearing Status Yes During Gait Assistive Devices Assistive Device Gait Belt,Straight Cane,Front Wheeled Walker Gait Deviations General Gait Pattern Antalgic,Decreased Stride Length,Step-to Gait Factors Limiting Gait Function Factors Limiting Gait Function Decreased Activity Tolerance, Decreased Strength,Limited Range of Motion,Pain,Poor Balance Comments Gait Comments Primarily uses FWW for gait. Began using FWW for gait prior in Jun 2022 prior to surgery due to poor balance. PT-OP-H Neuro Start: 04/28/23 10:41 Freq: Status: Active Protocol: Document 04/28/23 10:42 NM (Rec: 04/28/23 11:40 NM [id number]) Sensation Evaluation Gross Sensation Gross Sensation WNL Comments Summary Comments LLE intact to light touch sensation in all dermatomes. PT-OP-J Posture/Palpation/Skin Start: 04/28/23 10:41 Freq: Status: Active Protocol: Document 04/28/23 10:42 NM (Rec: 04/28/23 11:40 NM [id number]) Posture Evaluation Position Standing Evaluation View Posterior Pelvis Posture Anteriorly Tilted Weight Distribution Weight Shifted Right,Decreased Wt.Bear on (L) Hip Posture (L) Externally Rotated Knee Posture (L) Genu Valgus,(R) Genu Valgus Patellar Posture (R) Superior Palpation Assessment Location L knee Palpation Location posterior knee, posterior calf , lateral and medial knee Palpation Findings Edema,Soft Tissue Tightness, Tenderness Palpation Details Tenderness and edema along posterior knee and calf. No sign of DVT Tenderness and edema along medial and lateral knee near patella, femoral condyles near joint line Skin Assessment Edema Assessment L ankle Edema Type Non-Pitting Edema Degree 2+ Edema Appearance Discolored,Puffy Circumference Measurement L knee Location 5 cm above patella (60cm), sub patella (51 cm), 10 cm below patella (49 cm) Comments L malleoli (27 cm) with excess on lateral side, at patella ( 56.5 cm) Incisional Assessment Incision Appearance/Comments Bandage is CDI. Still wrapped so could not formally assess incision. No signs of infection around bandage. Will assess further once bandage removed PT-OP-K Range of Motion Start: 04/28/23 10:41 Freq: Status: Active Protocol: Document 07/04/23 12:16 NM (Rec: 07/04/23 13:28 NM [id number]) Knee Goniometric Range of Motion Knee Left Knee ROM WFL No Patient Position Supine Flexion Active (degrees) 110 Flexion Passive (degrees) 112 Extension Active (degrees) 5 Extension Passive (degrees) 4 Comments 07/04/23: lacks 3 deg ext with active quad contraction; 115 AROM knee flex 05/30/23: lacking 5 deg ext with active quad contraction @IE: flex 80 deg ext -10 deg PT-OP-M Strength Start: 04/28/23 10:41 Freq: Status: Active Protocol: Document 07/04/23 12:16 NM (Rec: 07/04/23 13:28 NM [id number]) Hip Strength Hip Manual Muscle Testing Right Flexion (L2) 4- Good- Abduction 4- Good- Adduction 4- Good- External Rotation 3+ Fair+ Internal Rotation 3+ Fair+ Left Flexion (L2) 3+ Fair+ Abduction 3+ Fair+ External Rotation 3+ Fair+ Internal Rotation 3+ Fair+ Comments Assessed in sitting due to knee pain 07/04/23: 4-/5 for all motions, no pain Knee Strength Knee Manual Muscle Testing Left Flexion (S2) 4 Good Extension (L3) 4- Good- Comments 07/24/23: 4/5 @ IE: flex and ext 3/5 PT-OP-Q Treatments Start: 04/28/23 10:41 Freq: Status: Active Protocol: Document 07/08/23 12:16 SP (Rec: 07/08/23 13:04 SP [id number]) Cardio Equipment Recumbent Bicycle Duration (Minutes) 5 Resistance 3 Seat Position in 3 (feels perfect)- warm up Other full cycle; cues to allow ankle ROM- 0.93 miles Gym Equipment Shuttle Recovery Unilateral Squats Details uni squat Resistance 50 # 2 teal bands Shuttle Recovery Platform Stable Reps/Time L 12, 15, R 15 Bilateral Squats Details B squats- 104* (sled can't go further down at wedge pos) Resistance 87#> 75 teal bands Shuttle Recovery Platform Stable Reps/Time x20 Gait Training Gait Activity SPC Description Gait Device Used SPC Level of Assistance close SBA Surface stable Distance/Duration 80 ft Treatment Focus gait mechanics with SPC Comments Using spc in RUE 2pt gait, pt ambulating around gym to normalize mechanics. cued L foot DF clearance, slower R heel strike for core/ L hip abd graded albert walking. Manual Therapy Treatment Soft Tissue Mobilization Scar mobilization Body Location scar Mobilization Type Cross-Friction,Myofascial Release Intensity/Depth Moderate Body Position shuttle recovery Comments good feedback but sensitiving multidirectional L knee Body Location quad, ITB Mobilization Type Cross-Friction,Myofascial Release Intensity/Depth Moderate Body Position shuttle recovery Comments MF glide superiorly Neuro Re-Education Treatment Balance Activities hurdles Details fwd 2 laps ,lateral 1 lap Surface floor Equipment near rail: prn x3 Reps/Duration 6 hurdles Comments cued elongation, rhomboid fac, wt shift over stance LE PT-OP-R Modalities Start: 05/30/23 15:01 Freq: Status: Active Protocol: Document 05/30/23 13:54 NM (Rec: 05/30/23 15:07 NM [id number]) Electric Stimulation Electric Stimulation Biphasic Body Location L quad Duration (Minutes) 10 Intensity 18 Frequency 50 Pulse Width 300 Contraction Type Normal Ramp 1.0 Comments 5/5 cycle due to time to maximize contractions Performed in sitting (LAQ), supine (quad sets, SAQ). Skin normal color, intact/dry before, during, after tmt. Skin check after 3 min and at end of session. PT-OP-T Assessment and Plan Start: 04/28/23 10:41 Freq: Status: Active Protocol: Document 07/08/23 12:16 SP (Rec: 07/08/23 13:04 SP [id number]) Physical Therapy Assessment Goals Seven Impairment gait Impairment Unable to complete 6 MWT at IE Short Term Goal (STG) Pt will be able to complete a 6 MWT using LRAD in order to demo improved gait mechanics and activity tolerance for community ambulation. 05/30/23: 798 ft with FWW STG Duration 6 weeks MET Sand Mill Grinder Goal (LTG) Pt will improve 6 MWT distance by at least 100 ft using LRAD in order to demo improved gait mechanics and activity tolerance for community ambulation. LTG Duration 12 weeks Six Impairment function Impairment LEFS 10 Short Term Goal (STG) Pt will improve LEFS score by at least 9 points (MCID) in order to demo improved activity tolerance and strength. 05/30/23: 53/80 STG Duration 6 weeks MET [employer]inder Goal (LTG) Pt will improve LEFS score by at least 18 points (2 MCID) in order to demo improved activity tolerance and strength. 05/30/23: 53/80 LTG Duration 12 weeks MET Five Impairment Balance, function Impairment TUG 41.5 sec with FWW Short Term Goal (STG) Pt will decrease TUG score time to at least 30 seconds or less using LRAD in order to demo improved balance during gait and transfers, to decrease fall risk. 07/04/23: 18.4 sec 05/30/23: 21 sec STG Duration 6 weeks MET [employer]inder Goal (LTG) Pt will decrease TUG score time to at least 15 seconds or less using LRAD in order to demo improved balance during gait and transfers, to decrease fall risk. 07/04/23: 18.4 sec LTG Duration 12 weeks PROGRESSING Four Impairment strength Impairment Knee flex 3/5 Short Term Goal (STG) Pt will improve L knee flex strength to at least 4-/5 in order to perform stairs and for propulsion during gait. 05/30/23: 4/5 knee flex STG Duration 6 weeks MET [employer]inder Goal (LTG) Pt will improve L knee flex strength to at least 4+/5 in order to perform stairs and for propulsion during gait. 07/04/23: 4/5 knee flex MMT LTG Duration 12 weeks PROGRESSING Three Impairment Strength Impairment Knee ext 3/5 Short Term Goal (STG) Pt will improve L knee ext strength to at least 4-/5 in order to demo improved quad control for stability and TKE for gait. 05/30/23: 4-/5 MMT STG Duration 6 weeks MET [employer]inder Goal (LTG) Pt will improve L knee ext strength to at least 4+/5 in order to demo improved quad control for stability and TKE for gait. 07/04/24: 4/5 knee ext MMT LTG Duration 12 weeks PROGRESSING Two Impairment ROM Impairment Knee ext 10 deg AROM (lacking) Short Term Goal (STG) Pt will improve L knee ext to at least 5 deg AROM in order to reach terminal knee extension during gait and improve knee stability during stairs/gait. 05/30/23: -5 deg knee ext but demos decreased quad activation STG Duration 6 weeks MET [employer]inder Goal (LTG) Pt will improve L knee ext to at least 0 deg in order to reach terminal knee extension during gait and improve knee stabiltiy during stairs/gait. 07/04/23: 3 with quad set 06/26/23: 1 deg with quad set, heel elevated due to calf LTG Duration 12 weeks PROGRESSING One Impairment ROM Impairment Knee flex 80 deg AROM Short Term Goal (STG) Pt will improve L knee flex to at least 100 deg AROM in order to demo improved knee flex ROM for stairs and gait. 06/16/23: 115 deg flex AROM 05/30/23: 110 deg flex AROM STG Duration 6 weeks MET [employer]inder Goal (LTG) Pt will improve L knee flex to at least 115 deg AROM in order to demo improved knee flex ROM for stairs, gait, and to be comparable to RLE. 07/04/23: 115 AROM 06/26/23: MET- 115 deg AROM pre- mob 118 post-mob LTG Duration 12 weeks MET Assessment Summary Assessment Pt improved more L knee flexion and eccentric RLE heel strike even albert post hurdles and cues during gait / c SPC for normalizing gait phases. Physical Therapy Plan Frequency and Duration Frequency of Treatment 2x/Week Duration of treatment (weeks) 12 Plan of Care Start Date 04/28/23 Plan of Care End Date 07/21/23 Therapeutic Interventions Therapeutic Interventions Aquatic Therapy,Balance Training,Gait Training,Home Exercise Program,Joint Mobilizations,Manual Therapy, Neuromuscular Re-education, Patient/Caregiver Education, Self-Care/Home Management,Soft Tissue Mobilization,Taping, Therapeutic Activities, Therapeutic Exercises Modalities Cold Pack/Ice Massage,Electric Stimulation,Hot Packs, Iontophoresis,Ultrasound, Vasopneumatic Devices Next Visit Focus/Plan Next Note Type Treatment Note Next Visit Plan Next session: gait training with cane, 4 step up, Leg press, standing knee flex mob; progress LAQ with 4# ankle wt vs cables, add knee flex mob with leg on step, trial mini- lunge and side steps; squat, step 4 with progress to 6. Continue bike if time. Review gait with 4WW and spc as tolerated Manual: soft tissue, no scar mgmt yet, gentle PROM with flex/ext PN in on 07/14
--- NOTE | 2023-07-10 16:27 | PT.OTN ---
Current Diagnoses Unilateral primary osteoarthritis, left knee (07/10/23) Physical Therapy Treatment Note PT-OP-A Visit Information Start: 04/28/23 10:41 Freq: Status: Active Protocol: Document 07/10/23 13:07 SW (Rec: 07/10/23 13:47 SW [id number]) Out-Patient Physical Therapy Visit Information Visit Information Visit Type Treatment Note Visit Note DOS: 04/18/23 3/10 post PN Visit Start Time 13:03 Visit Stop Time 13:43 Visit Number 17 Number of [employer] Visits 2 Precautions Precautions Post-op 04/18/23 (TKA) Fall risk PT-OP-B Current Condition Start: 04/28/23 10:41 Freq: Status: Active Protocol: Document 04/28/23 10:42 NM (Rec: 04/28/23 11:40 NM [id number]) Current Condition History of Current Condition Onset Date 04/18/23 Current Complaints pain, swelling, sleep History of Current Condition Pt presents to clinic with FWW s/p L TKA on 04/19. She is seeing Dr. Patton for her knee. Currently, pt still has her post-op dressings still on and is WBAT with a FWW. Pt has B knee OA, which led to the replacement. She had no pre-op PT. Prior to surgery, she was able to ambulate up to 1/4 mi due to pain, which is a decrease from her baseline which was 1 mi. She is planning on having the R knee replaced in a few months. Pt has steps leading up to her home which is covered by a ramp. She used a FWW for gait prior to surgery due to feeling like she had poor balance; she also has a spc that she uses occasional (not since surgery). Pt reports compliance with HEP from hospital, performing exercises 1-2x/day. She does report some tingling in her LLE down to her foot, but this was occuring prior to her TKA. Her main compliants are pain, weakness, swelling, stiffness, and poor sleep since her surgery. Future Testing and Treatments Planned Follow up 04/[address] Patton Treatment Goals Patient/Caregiver Goals Decrease pain, improve knee motion and strength, be able to sleep without discomfort Prior Functional Status Baseline Function- ADL's Independent Baseline Function- Mobility Independent Baseline Function- Gait FWW or spc for balance; up to 1/4 mi for gait distance Baseline Function- Recreation/Hobbies Gardening (hands and knees) Baseline Function- Other Stairs (no issue) Current Functional Impairments (Reported) Functional Limitations- Mobility/Gait No stairs due to limited motion and pain, no more than household ambulation Functional Limitations- Recreation/ Unable to garden Hobbies PT-OP-C Subjective Start: 04/28/23 10:41 Freq: Status: Active Protocol: Document 07/10/23 13:07 SW (Rec: 07/10/23 13:47 SW [id number]) OP-PT Subjective Patient Comments Patient Comments Pt reports sore after last session. Pt reports still discomfort in L quad. Pt worried about numbness and tingling from hip to ankle that has been present from prior to surgery. PT-OP-D Balance Start: 04/28/23 10:41 Freq: Status: Active Protocol: Document 04/28/23 10:42 NM (Rec: 04/28/23 11:56 NM [id number]) OP-PT Balance Assessment Sitting Balance Static Sitting Balance Ability Normal Dynamic Sitting Balance Ability Normal Standing Balance Static Standing Balance Ability Good Dynamic Standing Balance Ability Fair Device Used FWW Standing Balance Comments Occasional CGA to steady during gait, changing JUVENCIO Denise Fall Scale Copyright Permission PT-OP-E Functional Tests Start: 04/28/23 10:41 Freq: Status: Active Protocol: Document 04/28/23 10:42 NM (Rec: 04/28/23 11:40 NM [id number]) Functional Tests Timed Up and Go (TUG) Score 41.5 sec Comments FWW, SBA PT-OP-F Manual Assessment Start: 04/28/23 10:41 Freq: Status: Active Protocol: Document 04/28/23 10:42 NM (Rec: 04/28/23 11:40 NM [id number]) Manual Assessments Soft Tissue Assessment Soft Tissue Mobility Assessment Soft tissue restrictions of L hamstring. Edema in L ankle, knee and calf. Will need scar mobilization to prevent adhesions once scar is closed and healed. Joint Mobility Assessment Joint Mobility Assessment Empty end feel with PROM, limited mobility PT-OP-G Mobility & Gait Start: 04/28/23 10:41 Freq: Status: Active Protocol: Document 04/28/23 10:42 NM (Rec: 04/28/23 11:40 NM [id number]) OP Gait Assessment Gait Gait Assistance Required: Standby Assistance Distance (Feet) 200 Able to Maintain Weight Bearing Status Yes During Gait Assistive Devices Assistive Device Gait Belt,Straight Cane,Front Wheeled Walker Gait Deviations General Gait Pattern Antalgic,Decreased Stride Length,Step-to Gait Factors Limiting Gait Function Factors Limiting Gait Function Decreased Activity Tolerance, Decreased Strength,Limited Range of Motion,Pain,Poor Balance Comments Gait Comments Primarily uses FWW for gait. Began using FWW for gait prior in Jun 2022 prior to surgery due to poor balance. PT-OP-H Neuro Start: 04/28/23 10:41 Freq: Status: Active Protocol: Document 04/28/23 10:42 NM (Rec: 04/28/23 11:40 NM [id number]) Sensation Evaluation Gross Sensation Gross Sensation WNL Comments Summary Comments LLE intact to light touch sensation in all dermatomes. PT-OP-J Posture/Palpation/Skin Start: 04/28/23 10:41 Freq: Status: Active Protocol: Document 04/28/23 10:42 NM (Rec: 04/28/23 11:40 NM [id number]) Posture Evaluation Position Standing Evaluation View Posterior Pelvis Posture Anteriorly Tilted Weight Distribution Weight Shifted Right,Decreased Wt.Bear on (L) Hip Posture (L) Externally Rotated Knee Posture (L) Genu Valgus,(R) Genu Valgus Patellar Posture (R) Superior Palpation Assessment Location L knee Palpation Location posterior knee, posterior calf , lateral and medial knee Palpation Findings Edema,Soft Tissue Tightness, Tenderness Palpation Details Tenderness and edema along posterior knee and calf. No sign of DVT Tenderness and edema along medial and lateral knee near patella, femoral condyles near joint line Skin Assessment Edema Assessment L ankle Edema Type Non-Pitting Edema Degree 2+ Edema Appearance Discolored,Puffy Circumference Measurement L knee Location 5 cm above patella (60cm), sub patella (51 cm), 10 cm below patella (49 cm) Comments L malleoli (27 cm) with excess on lateral side, at patella ( 56.5 cm) Incisional Assessment Incision Appearance/Comments Bandage is CDI. Still wrapped so could not formally assess incision. No signs of infection around bandage. Will assess further once bandage removed PT-OP-K Range of Motion Start: 04/28/23 10:41 Freq: Status: Active Protocol: Document 07/04/23 12:16 NM (Rec: 07/04/23 13:28 NM [id number]) Knee Goniometric Range of Motion Knee Left Knee ROM WFL No Patient Position Supine Flexion Active (degrees) 110 Flexion Passive (degrees) 112 Extension Active (degrees) 5 Extension Passive (degrees) 4 Comments 07/04/23: lacks 3 deg ext with active quad contraction; 115 AROM knee flex 05/30/23: lacking 5 deg ext with active quad contraction @IE: flex 80 deg ext -10 deg PT-OP-M Strength Start: 04/28/23 10:41 Freq: Status: Active Protocol: Document 07/04/23 12:16 NM (Rec: 07/04/23 13:28 NM [id number]) Hip Strength Hip Manual Muscle Testing Right Flexion (L2) 4- Good- Abduction 4- Good- Adduction 4- Good- External Rotation 3+ Fair+ Internal Rotation 3+ Fair+ Left Flexion (L2) 3+ Fair+ Abduction 3+ Fair+ External Rotation 3+ Fair+ Internal Rotation 3+ Fair+ Comments Assessed in sitting due to knee pain 07/04/23: 4-/5 for all motions, no pain Knee Strength Knee Manual Muscle Testing Left Flexion (S2) 4 Good Extension (L3) 4- Good- Comments 07/24/23: 4/5 @ IE: flex and ext 3/5 PT-OP-Q Treatments Start: 04/28/23 10:41 Freq: Status: Active Protocol: Document 07/10/23 13:07 SW (Rec: 07/10/23 13:47 SW [id number]) Cardio Equipment Recumbent Bicycle Duration (Minutes) 5 Resistance 3 Seat Position 4 warm up Other full cycle; cues to allow ankle ROM- 0.93 miles Therapeutic Exercises Sitting Exercises LAQ Sitting Exercise Name LAQ Side left Resistance 4# ankle weight Equipment Used sitting Reps/Minutes 3x10 Comments improved TKE; cue for good quad contraction with knee ext Standing Exercises Lunge Standing Exercise Name Mini lunge (both knees flexing ) Side bilateral Resistance AROM Equipment Used ballet bar 1 UE support for balance Reps/Minutes 2x8 ea Comments fatiguing; cued for L knee flex Knee flexion mobilization/stretch Standing Exercise Name LLE elevated on 6 step, then fwd into knee flex stretch Side left Equipment Used 2nd step, B hand rail use Reps/Minutes 3x10 Comments cue for form; up to 120 deg knee flex Gait Training Gait Activity SPC Description Gait Device Used SPC Level of Assistance close SBA Surface stable Distance/Duration 80 ft Treatment Focus gait mechanics with SPC, endurance, strength Comments Using spc in RUE 2pt gait, pt ambulating around gym to normalize mechanics. cued L foot DF clearance, slower R heel strike for core/ L hip abd graded albert walking. Manual Therapy Treatment Soft Tissue Mobilization Scar mobilization Body Location scar Mobilization Type Cross-Friction,Myofascial Release Intensity/Depth Moderate Body Position shuttle recovery Comments good feedback but sensitiving multidirectional L knee Body Location quad, ITB Mobilization Type Cross-Friction,Myofascial Release Intensity/Depth Moderate Body Position Supine Joint Mobilizations Patella Direction superior/inferior, medial/ lateral Grade III Body Position Supine Reps/Duration 90 ea direction Comments To improve knee ext and flex mobility. Performed in various deg of knee flex PT-OP-R Modalities Start: 05/30/23 15:01 Freq: Status: Active Protocol: Document 05/30/23 13:54 NM (Rec: 05/30/23 15:07 NM [id number]) Electric Stimulation Electric Stimulation Biphasic Body Location L quad Duration (Minutes) 10 Intensity 18 Frequency 50 Pulse Width 300 Contraction Type Normal Ramp 1.0 Comments 5/5 cycle due to time to maximize contractions Performed in sitting (LAQ), supine (quad sets, SAQ). Skin normal color, intact/dry before, during, after tmt. Skin check after 3 min and at end of session. PT-OP-T Assessment and Plan Start: 04/28/23 10:41 Freq: Status: Active Protocol: Document 07/10/23 13:07 SW (Rec: 07/10/23 13:47 SW [id number]) Physical Therapy Assessment Goals Seven Impairment gait Impairment Unable to complete 6 MWT at IE Short Term Goal (STG) Pt will be able to complete a 6 MWT using LRAD in order to demo improved gait mechanics and activity tolerance for community ambulation. 05/30/23: 798 ft with FWW STG Duration 6 weeks MET Prison Goal (LTG) Pt will improve 6 MWT distance by at least 100 ft using LRAD in order to demo improved gait mechanics and activity tolerance for community ambulation. LTG Duration 12 weeks Six Impairment function Impairment LEFS 10/80 Short Term Goal (STG) Pt will improve LEFS score by at least 9 points (MCID) in order to demo improved activity tolerance and strength. 05/30/23: 53/80 STG Duration 6 weeks MET Preflight Mechanic Goal (LTG) Pt will improve LEFS score by at least 18 points (2 MCID) in order to demo improved activity tolerance and strength. 05/30/23: 53/80 LTG Duration 12 weeks MET Five Impairment Balance, function Impairment TUG 41.5 sec with FWW Short Term Goal (STG) Pt will decrease TUG score time to at least 30 seconds or less using LRAD in order to demo improved balance during gait and transfers, to decrease fall risk. 07/04/23: 18.4 sec 05/30/23: 21 sec STG Duration 6 weeks MET Preflight Mechanic Goal (LTG) Pt will decrease TUG score time to at least 15 seconds or less using LRAD in order to demo improved balance during gait and transfers, to decrease fall risk. 07/04/23: 18.4 sec LTG Duration 12 weeks PROGRESSING Four Impairment strength Impairment Knee flex 3/5 Short Term Goal (STG) Pt will improve L knee flex strength to at least 4-/5 in order to perform stairs and for propulsion during gait. 05/30/23: 4/5 knee flex STG Duration 6 weeks MET Preflight Mechanic Goal (LTG) Pt will improve L knee flex strength to at least 4+/5 in order to perform stairs and for propulsion during gait. 07/04/23: 4/5 knee flex MMT LTG Duration 12 weeks PROGRESSING Three Impairment Strength Impairment Knee ext 3/5 Short Term Goal (STG) Pt will improve L knee ext strength to at least 4-/5 in order to demo improved quad control for stability and TKE for gait. 05/30/23: 4-/5 MMT STG Duration 6 weeks MET Prison Goal (LTG) Pt will improve L knee ext strength to at least 4+/5 in order to demo improved quad control for stability and TKE for gait. 07/04/24: 4/5 knee ext MMT LTG Duration 12 weeks PROGRESSING Two Impairment ROM Impairment Knee ext 10 deg AROM (lacking) Short Term Goal (STG) Pt will improve L knee ext to at least 5 deg AROM in order to reach terminal knee extension during gait and improve knee stability during stairs/gait. 05/30/23: -5 deg knee ext but demos decreased quad activation STG Duration 6 weeks MET Preflight Mechanic Goal (LTG) Pt will improve L knee ext to at least 0 deg in order to reach terminal knee extension during gait and improve knee stabiltiy during stairs/gait. 07/04/23: 3 with quad set 06/26/23: 1 deg with quad set, heel elevated due to calf LTG Duration 12 weeks PROGRESSING One Impairment ROM Impairment Knee flex 80 deg AROM Short Term Goal (STG) Pt will improve L knee flex to at least 100 deg AROM in order to demo improved knee flex ROM for stairs and gait. 06/16/23: 115 deg flex AROM 05/30/23: 110 deg flex AROM STG Duration 6 weeks MET Preflight Mechanic Goal (LTG) Pt will improve L knee flex to at least 115 deg AROM in order to demo improved knee flex ROM for stairs, gait, and to be comparable to RLE. 07/04/23: 115 AROM 06/26/23: MET- 115 deg AROM pre- mob 118 post-mob LTG Duration 12 weeks MET Assessment Summary Assessment Pt quick to fatigue in R quad this session, rest breaks between strength. Progressed pt with weight with LAQ tolerated well able to reach TKE, instructed pt to increase reps at home with the head trimmer weight pt has to progress strength in the left quad. Pt had increased difficulty on bike today during warm up, increased hip ER cued pt for neutral alignment, improved with revolutions but had to move seat back 1 position today. Continued focus on gait training with SPC, decreased stance time on LLE and lateral trunk lean with onset of fatigue, improved with cues, though continued to compensate with increased faitgue. Physical Therapy Plan Frequency and Duration Frequency of Treatment 2x/Week Duration of treatment (weeks) 12 Plan of Care Start Date 04/28/23 Plan of Care End Date 07/21/23 Therapeutic Interventions Therapeutic Interventions Aquatic Therapy,Balance Training,Gait Training,Home Exercise Program,Joint Mobilizations,Manual Therapy, Neuromuscular Re-education, Patient/Caregiver Education, Self-Care/Home Management,Soft Tissue Mobilization,Taping, Therapeutic Activities, Therapeutic Exercises Modalities Cold Pack/Ice Massage,Electric Stimulation,Hot Packs, Iontophoresis,Ultrasound, Vasopneumatic Devices Next Visit Focus/Plan Next Note Type Treatment Note Next Visit Plan Next session: gait training with cane, 4 step up, Leg press, standing knee flex mob; progress LAQ with 4# ankle wt vs cables, add knee flex mob with leg on step, trial mini- lunge and side steps; squat, step 4 with progress to 6. Continue bike if time. Review gait with 4WW and spc as tolerated Manual: soft tissue, no scar mgmt yet, gentle PROM with flex/ext PN in on 07/14
--- NOTE | 2023-07-14 16:45 | PT.OTN ---
Current Diagnoses Unilateral primary osteoarthritis, left knee (07/14/23) Physical Therapy Treatment Note PT-OP-A Visit Information Start: 04/28/23 10:41 Freq: Status: Active Protocol: Document 07/14/23 12:21 NM (Rec: 07/14/23 13:01 NM [id number]) Out-Patient Physical Therapy Visit Information Visit Information Visit Type Progress Note Visit Note DOS: 04/18/23 extend POC Visit Start Time 12:17 Visit Stop Time 13:00 Visit Number 18 Evaluation Information Evaluation Date 04/28/23 Precautions Precautions Post-op 04/18/23 (TKA) Fall risk PT-OP-B Current Condition Start: 04/28/23 10:41 Freq: Status: Active Protocol: Document 04/28/23 10:42 NM (Rec: 04/28/23 11:40 NM [id number]) Current Condition History of Current Condition Onset Date 04/18/23 Current Complaints pain, swelling, sleep History of Current Condition Pt presents to clinic with FWW s/p L TKA on 04/19. She is seeing Dr. Patton for her knee. Currently, pt still has her post-op dressings still on and is WBAT with a FWW. Pt has B knee OA, which led to the replacement. She had no pre-op PT. Prior to surgery, she was able to ambulate up to 1/4 mi due to pain, which is a decrease from her baseline which was 1 mi. She is planning on having the R knee replaced in a few months. Pt has steps leading up to her home which is covered by a ramp. She used a FWW for gait prior to surgery due to feeling like she had poor balance; she also has a spc that she uses occasional (not since surgery). Pt reports compliance with HEP from hospital, performing exercises 1-2x/day. She does report some tingling in her LLE down to her foot, but this was occuring prior to her TKA. Her main compliants are pain, weakness, swelling, stiffness, and poor sleep since her surgery. Future Testing and Treatments Planned Follow up 04/[address] Patton Treatment Goals Patient/Caregiver Goals Decrease pain, improve knee motion and strength, be able to sleep without discomfort Prior Functional Status Baseline Function- ADL's Independent Baseline Function- Mobility Independent Baseline Function- Gait FWW or spc for balance; up to 1/4 mi for gait distance Baseline Function- Recreation/Hobbies Gardening (hands and knees) Baseline Function- Other Stairs (no issue) Current Functional Impairments (Reported) Functional Limitations- Mobility/Gait No stairs due to limited motion and pain, no more than household ambulation Functional Limitations- Recreation/ Unable to garden Hobbies PT-OP-C Subjective Start: 04/28/23 10:41 Freq: Status: Active Protocol: Document 07/14/23 12:21 NM (Rec: 07/14/23 13:01 NM [id number]) OP-PT Subjective Patient Comments Patient Comments Pt reports no L knee pain. She was very sore in her quads after using the leg press last session. She has been using heat on her L quad. She presents with the FWW but has been trying the spc and her 4ww at home more frequently PT-OP-D Balance Start: 04/28/23 10:41 Freq: Status: Active Protocol: Document 04/28/23 10:42 NM (Rec: 04/28/23 11:56 NM [id number]) OP-PT Balance Assessment Sitting Balance Static Sitting Balance Ability Normal Dynamic Sitting Balance Ability Normal Standing Balance Static Standing Balance Ability Good Dynamic Standing Balance Ability Fair Device Used FWW Standing Balance Comments Occasional CGA to steady during gait, changing JUVENCIO Denise Fall Scale Copyright Permission PT-OP-E Functional Tests Start: 04/28/23 10:41 Freq: Status: Active Protocol: Document 04/28/23 10:42 NM (Rec: 04/28/23 11:40 NM [id number]) Functional Tests Timed Up and Go (TUG) Score 41.5 sec Comments FWW, SBA PT-OP-F Manual Assessment Start: 04/28/23 10:41 Freq: Status: Active Protocol: Document 04/28/23 10:42 NM (Rec: 04/28/23 11:40 NM [id number]) Manual Assessments Soft Tissue Assessment Soft Tissue Mobility Assessment Soft tissue restrictions of L hamstring. Edema in L ankle, knee and calf. Will need scar mobilization to prevent adhesions once scar is closed and healed. Joint Mobility Assessment Joint Mobility Assessment Empty end feel with PROM, limited mobility PT-OP-G Mobility & Gait Start: 04/28/23 10:41 Freq: Status: Active Protocol: Document 04/28/23 10:42 NM (Rec: 04/28/23 11:40 NM [id number]) OP Gait Assessment Gait Gait Assistance Required: Standby Assistance Distance (Feet) 200 Able to Maintain Weight Bearing Status Yes During Gait Assistive Devices Assistive Device Gait Belt,Straight Cane,Front Wheeled Walker Gait Deviations General Gait Pattern Antalgic,Decreased Stride Length,Step-to Gait Factors Limiting Gait Function Factors Limiting Gait Function Decreased Activity Tolerance, Decreased Strength,Limited Range of Motion,Pain,Poor Balance Comments Gait Comments Primarily uses FWW for gait. Began using FWW for gait prior in Jun 2022 prior to surgery due to poor balance. PT-OP-H Neuro Start: 04/28/23 10:41 Freq: Status: Active Protocol: Document 04/28/23 10:42 NM (Rec: 04/28/23 11:40 NM [id number]) Sensation Evaluation Gross Sensation Gross Sensation WNL Comments Summary Comments LLE intact to light touch sensation in all dermatomes. PT-OP-J Posture/Palpation/Skin Start: 04/28/23 10:41 Freq: Status: Active Protocol: Document 04/28/23 10:42 NM (Rec: 04/28/23 11:40 NM [id number]) Posture Evaluation Position Standing Evaluation View Posterior Pelvis Posture Anteriorly Tilted Weight Distribution Weight Shifted Right,Decreased Wt.Bear on (L) Hip Posture (L) Externally Rotated Knee Posture (L) Genu Valgus,(R) Genu Valgus Patellar Posture (R) Superior Palpation Assessment Location L knee Palpation Location posterior knee, posterior calf , lateral and medial knee Palpation Findings Edema,Soft Tissue Tightness, Tenderness Palpation Details Tenderness and edema along posterior knee and calf. No sign of DVT Tenderness and edema along medial and lateral knee near patella, femoral condyles near joint line Skin Assessment Edema Assessment L ankle Edema Type Non-Pitting Edema Degree 2+ Edema Appearance Discolored,Puffy Circumference Measurement L knee Location 5 cm above patella (60cm), sub patella (51 cm), 10 cm below patella (49 cm) Comments L malleoli (27 cm) with excess on lateral side, at patella ( 56.5 cm) Incisional Assessment Incision Appearance/Comments Bandage is CDI. Still wrapped so could not formally assess incision. No signs of infection around bandage. Will assess further once bandage removed PT-OP-K Range of Motion Start: 12/04/23 10:41 Freq: Status: Active Protocol: Document 07/14/23 12:21 NM (Rec: 07/14/23 13:01 NM [id number]) Knee Goniometric Range of Motion Knee Left Knee ROM WFL No Patient Position Supine Flexion Active (degrees) 115 Flexion Passive (degrees) 115 Extension Active (degrees) 2 Extension Passive (degrees) 1 Comments 07/14/23: 115 deg flex, 2 deg ext lacking 07/04/23: lacks 3 deg ext with active quad contraction; 115 AROM knee flex 05/30/23: 110 deg flex AROM, 5 deg ext AROM 05/30/23: lacking 5 deg ext with active quad contraction @IE: flex 80 deg ext -10 deg PT-OP-M Strength Start: 04/28/23 10:41 Freq: Status: Active Protocol: Document 07/14/23 12:21 NM (Rec: 07/14/23 13:01 NM [id number]) Hip Strength Hip Manual Muscle Testing Left Flexion (L2) 3+ Fair+ Abduction 3+ Fair+ External Rotation 3+ Fair+ Internal Rotation 3+ Fair+ Comments Assessed in sitting due to knee pain 07/14/23, 07/04/23: 4-/5 for all motions, no pain Knee Strength Knee Manual Muscle Testing Left Flexion (S2) 4 Good Extension (L3) 4 Good Comments 07/04/23: 4/5, no pain with resisted motion 05/30/23: 4/5 flex, 4-/5 ext @ IE: flex and ext 3/5 PT-OP-Q Treatments Start: 04/28/23 10:41 Freq: Status: Active Protocol: Document 07/14/23 12:21 NM (Rec: 07/14/23 13:01 NM [id number]) Therapeutic Exercises Standing Exercises lateral lunge Standing Exercise Name trialed: mini-lateral lunge Side bilateral Resistance AROM Equipment Used 2 hand support (flat hands) on ballet bar for balance Reps/Minutes 2x8 Comments cued for knee flex, execution Lunge Standing Exercise Name Mini lunge (both knees flexing ) Side bilateral Resistance AROM Equipment Used ballet bar 1 UE support for balance Reps/Minutes 2x8 ea Comments fatiguing; cued for L knee flex TKE Standing Exercise Name for knee ext Side left Resistance [place] tb lvl 3 Equipment Used PT holding band, cueing for only knee flex Reps/Minutes 2x10 with 3 hold Comments at end of session, for HEP with band Other Exercises Sit to stand Other Exercise Name no UE support from 20 plinth height Side bilateral Equipment Used 4WW in front Reps/Minutes 2x5 Comments cues for TKE in stance, fwd weight shift; demos improved glute strength Gait Training Gait Activity SPC Description Gait Device Used SPC Level of Assistance close SBA Surface stable, outside sidewalk, curb Distance/Duration 150 ft, various distances around clinic Treatment Focus gait mechanics with SPC, endurance, strength Comments 2pt gait pattern. Trialed outdoor ambulation as pt wanting to transition toward spc more frequently. Hesistant with stepping down curb. PT cueing for correct execution, CGA>min A to steady while stepping down, x2 reps. Cued for correct execution when stepping up on curb, CGA to steady. Overall, cued for heel >toe, soft L knee stance as fatigues 6 MWT Device Used spc Level of Assistance close SBA Surface stable- carpet, tile Distance/Duration 646 ft Treatment Focus endurance, nml gait, TKE Comments Cued heel > toe, increased toe off into swing, soft L knee into stance. As pt fatigues, demos decreased gait speed, stiffer L stance. Requires 2 standing rest breaks up to 10 sec. Very fatigued by end of test Neuro Re-Education Treatment Other Activities TUG Comments 1. FWW, IND- 16 sec 2. spc, close SBA - 18 sec Self-Care/Home Management Treatment Education Patient Education Home Exercise Program,Joint Protection,Safety Other Education 8 minutes- Educated on use of AD at home, transitioning to less stable AD in order to decrease UE reliance and increase BLE use/strength/ balance. Pt to bring spc and 4ww to sessions with goal of transitioning toward spc as able. HEP: lunges with UE support, TKE using with UE support. Instructed to get assistance to set up band for TKE, use stable surfaces for balance. Discussed Pt POC, extending for continued strengthening and balance training PT-OP-R Modalities Start: 05/30/23 15:01 Freq: Status: Active Protocol: Document 05/30/23 13:54 NM (Rec: 05/30/23 15:07 NM [id number]) Electric Stimulation Electric Stimulation Biphasic Body Location L quad Duration (Minutes) 10 Intensity 18 Frequency 50 Pulse Width 300 Contraction Type Normal Ramp 1.0 Comments 5/5 cycle due to time to maximize contractions Performed in sitting (LAQ), supine (quad sets, SAQ). Skin normal color, intact/dry before, during, after tmt. Skin check after 3 min and at end of session. PT-OP-T Assessment and Plan Start: 04/28/23 10:41 Freq: Status: Active Protocol: Document 07/14/23 12:21 NM (Rec: 07/14/23 13:01 NM [id number]) Physical Therapy Assessment Goals Seven Impairment gait Impairment Unable to complete 6 MWT at IE Short Term Goal (STG) Pt will be able to complete a 6 MWT using LRAD in order to demo improved gait mechanics and activity tolerance for community ambulation. 05/30/23: 798 ft with FWW STG Duration 6 weeks MET Geoscience Technician Goal (LTG) Pt will improve 6 MWT distance by at least 100 ft using LRAD in order to demo improved gait mechanics and activity tolerance for community ambulation. 07/14/23: 646 ft with spc, 2 standing rest breaks LTG Duration 12 weeks PROGRESSING, NOT MET Six Impairment function Impairment LEFS 1080 Short Term Goal (STG) Pt will improve LEFS score by at least 9 points (MCID) in order to demo improved activity tolerance and strength. 05/30/23: 53/80 STG Duration 6 weeks MET Custodial Goal (LTG) Pt will improve LEFS score by at least 18 points (2 MCID) in order to demo improved activity tolerance and strength. 05/30/23: 53/80 LTG Duration 12 weeks MET Five Impairment Balance, function Impairment TUG 41.5 sec with FWW Short Term Goal (STG) Pt will decrease TUG score time to at least 30 seconds or less using LRAD in order to demo improved balance during gait and transfers, to decrease fall risk. 07/04/23: 18.4 sec 05/30/23: 21 sec STG Duration 6 weeks MET Geoscience Technician Goal (LTG) Pt will decrease TUG score time to at least 15 seconds or less using LRAD in order to demo improved balance during gait and transfers, to decrease fall risk. 07/14/23: 16 sec FWW, 18 sec spc 07/04/23: 18.4 sec LTG Duration 12 weeks PROGRESSING, NOT MET Four Impairment strength Impairment Knee flex 3/5 Short Term Goal (STG) Pt will improve L knee flex strength to at least 4-/5 in order to perform stairs and for propulsion during gait. 05/30/23: 4/5 knee flex STG Duration 6 weeks MET Geoscience Technician Goal (LTG) Pt will improve L knee flex strength to at least 4+/5 in order to perform stairs and for propulsion during gait. 07/14/23, 07/04/23: 4/5 knee flex MMT LTG Duration 12 weeks PROGRESSING, NOT MET Three Impairment Strength Impairment Knee ext 3/5 Short Term Goal (STG) Pt will improve L knee ext strength to at least 4-/5 in order to demo improved quad control for stability and TKE for gait. 05/30/23: 4-/5 MMT STG Duration 6 weeks MET Geoscience Technician Goal (LTG) Pt will improve L knee ext strength to at least 4+/5 in order to demo improved quad control for stability and TKE for gait. 07/14/23, 07/04/24: 4/5 knee ext MMT; functionally limited during step up, squat LTG Duration 12 weeks PROGRESSING, NOT MET Two Impairment ROM Impairment Knee ext 10 deg AROM (lacking) Short Term Goal (STG) Pt will improve L knee ext to at least 5 deg AROM in order to reach terminal knee extension during gait and improve knee stability during stairs/gait. 05/30/23: -5 deg knee ext but demos decreased quad activation STG Duration 6 weeks MET Custodial Goal (LTG) Pt will improve L knee ext to at least 1 deg in order to reach terminal knee extension during gait and improve knee stabiltiy during stairs/gait. 07/14/23: lacking 2 deg ext with quad set, heel elevated 07/04/23: 3 with quad set 06/26/23: 1 deg with quad set, heel elevated due to calf LTG Duration 12 weeks PROGRESSING; goal updated One Impairment ROM Impairment Knee flex 80 deg AROM Short Term Goal (STG) Pt will improve L knee flex to at least 100 deg AROM in order to demo improved knee flex ROM for stairs and gait. 06/16/23: 115 deg flex AROM 05/30/23: 110 deg flex AROM STG Duration 6 weeks MET Custodial Goal (LTG) Pt will improve L knee flex to > 115 deg AROM in order to demo improved knee flex ROM for stairs, gait, and to be comparable to RLE. 07/04/23: 115 AROM MET; updated to > 115 deg 06/26/23: MET- 115 deg AROM pre- mob 118 post-mob LTG Duration 12 weeks MET; goal updated Progress Towards Goals Progress Towards Goals Progressing Toward Goals,Goals Met Progress Comments Pt progressing toward LLE strength goals, gait goals. Met AROM goals; goals updated. Assessment Summary Assessment Pt fatigues quickly, but reports no knee pain with activity. Performed 6 MWT using spc, ambulating 646 ft. PT cued pt for soft L knee during stance and spc placement more in front of pt. Requires 2 standing rest breaks as pt has decreased activity tolerance. Pt demos improved sequencing and gait mechanics with repetitions, but is used to relying on UE support with FWW for gait. Pt wanting to transition to spc, so PT and pt discussed transitioning to fww then spc. Gait training using spc outside. Pt challenged by 4 curb with spc, requiring CGA with moderate cuing for correct execution in addition to cues for safety. Demos decreased TUG times. Continued with glute/quad strengthening using lunges and TKE with band. Initiated lateral lunges for hip abductor activation. PT educated pt on HEP, safety during AD use at home, goal to transition to less stable AD as pt progresses, and exam findings. Pt and PT in agreement about extending POC. Pt has been seen since April 2023 s/p L TKA. She is currently 12.5 weeks post- op. Pt continues to lack a few degrees of L knee extension, currently 115 deg L knee flexion AROM. Pt currently 4/5 for L hip and knee strength on MMT. Functionally, pt continues to struggle with step up, squat, lunge, and movements requiring increased glute and quad activation. Pt progressing toward strength goals, 6 MWT distance goals, balance goals. Pt also progressing with TUG testing using both FWW and spc, but has not met goals. Pt reports that she continues to have limitations in ability to participate in ADL/IADL, although she has had significant improvement since IE. Pt would benefit from skilled PT for further LLE strengthening, gait and balance training in order to progress to less stable AD, improve activity tolerance, L knee AROM, and QOL in order to return to PLOF. Physical Therapy Plan Frequency and Duration Frequency of Treatment 2x/Week Duration of treatment (weeks) 8 Plan of Care Start Date 07/14/23 Plan of Care End Date 09/12/23 Therapeutic Interventions Therapeutic Interventions Aquatic Therapy,Balance Training,Gait Training,Home Exercise Program,Joint Mobilizations,Manual Therapy, Neuromuscular Re-education, Patient/Caregiver Education, Self-Care/Home Management,Soft Tissue Mobilization,Taping, Therapeutic Activities, Therapeutic Exercises Modalities Cold Pack/Ice Massage,Electric Stimulation,Hot Packs, Iontophoresis,Ultrasound, Vasopneumatic Devices Next Visit Focus/Plan Next Note Type Treatment Note Next Visit Plan Next session: gait training with cane and use of 4ww if not spc, continue step up, leg press, strengthening hip abd/ glutes/quad. Balance training Continue bike if time. Manual: soft tissue, no scar mgmt yet, gentle PROM with flex/ext
--- NOTE | 2023-07-14 16:47 | PT.OPPOC ---
Physical, Occupational & Speech Therapy At [facility] Current Diagnoses Unilateral primary osteoarthritis, left knee (07/14/23) Visit Care Team Role Provider Type Fletcher Menezes MD Family Provider Physician Primary Care Provider Specialty: Family Practice Address: [address] [place] [address], [id number] Email: [email or web address] Jorge Patton MD Attending Provider Physician Referring Provider Specialty: Orthopedics Orthopedic Surgery Address: [address] [place] [address], [id number] Email: [email or web address] Plan Of Care PT-OP-T Assessment and Plan Start: 04/28/23 10:41 Freq: Status: Active Protocol: Document 07/14/23 12:21 NM (Rec: 07/14/23 13:01 NM [id number]) Physical Therapy Assessment Goals Seven Impairment gait Impairment Unable to complete 6 MWT at IE Short Term Goal (STG) Pt will be able to complete a 6 MWT using LRAD in order to demo improved gait mechanics and activity tolerance for community ambulation. 05/30/23: 798 ft with FWW STG Duration 6 weeks MET College Sports Coach Goal (LTG) Pt will improve 6 MWT distance by at least 100 ft using LRAD in order to demo improved gait mechanics and activity tolerance for community ambulation. 07/14/23: 646 ft with spc, 2 standing rest breaks LTG Duration 12 weeks PROGRESSING, NOT MET Six Impairment function Impairment LEFS 10/80 Short Term Goal (STG) Pt will improve LEFS score by at least 9 points (MCID) in order to demo improved activity tolerance and strength. 05/30/23: 53/80 STG Duration 6 weeks MET College Sports Coach Goal (LTG) Pt will improve LEFS score by at least 18 points (2 MCID) in order to demo improved activity tolerance and strength. 05/30/23: 53/80 LTG Duration 12 weeks MET Five Impairment Balance, function Impairment TUG 41.5 sec with FWW Short Term Goal (STG) Pt will decrease TUG score time to at least 30 seconds or less using LRAD in order to demo improved balance during gait and transfers, to decrease fall risk. 07/04/23: 18.4 sec 05/30/23: 21 sec STG Duration 6 weeks MET College Sports Coach Goal (LTG) Pt will decrease TUG score time to at least 15 seconds or less using LRAD in order to demo improved balance during gait and transfers, to decrease fall risk. 07/14/23: 16 sec FWW, 18 sec spc 07/04/23: 18.4 sec LTG Duration 12 weeks PROGRESSING, NOT MET Four Impairment strength Impairment Knee flex 3/5 Short Term Goal (STG) Pt will improve L knee flex strength to at least 4-/5 in order to perform stairs and for propulsion during gait. 05/30/23: 4/5 knee flex STG Duration 6 weeks MET College Sports Coach Goal (LTG) Pt will improve L knee flex strength to at least 4+/5 in order to perform stairs and for propulsion during gait. 07/14/23, 07/04/23: 4/5 knee flex MMT LTG Duration 12 weeks PROGRESSING, NOT MET Three Impairment Strength Impairment Knee ext 3/5 Short Term Goal (STG) Pt will improve L knee ext strength to at least 4-/5 in order to demo improved quad control for stability and TKE for gait. 05/30/23: 4-/5 MMT STG Duration 6 weeks MET Senior Living Goal (LTG) Pt will improve L knee ext strength to at least 4+/5 in order to demo improved quad control for stability and TKE for gait. 07/14/23, 07/04/24: 4/5 knee ext MMT; functionally limited during step up, squat LTG Duration 12 weeks PROGRESSING, NOT MET Two Impairment ROM Impairment Knee ext 10 deg AROM (lacking) Short Term Goal (STG) Pt will improve L knee ext to at least 5 deg AROM in order to reach terminal knee extension during gait and improve knee stability during stairs/gait. 05/30/23: -5 deg knee ext but demos decreased quad activation STG Duration 6 weeks MET College Sports Coach Goal (LTG) Pt will improve L knee ext to at least 1 deg in order to reach terminal knee extension during gait and improve knee stabiltiy during stairs/gait. 07/14/23: lacking 2 deg ext with quad set, heel elevated 07/04/23: 3 with quad set 06/26/23: 1 deg with quad set, heel elevated due to calf LTG Duration 12 weeks PROGRESSING; goal updated One Impairment ROM Impairment Knee flex 80 deg AROM Short Term Goal (STG) Pt will improve L knee flex to at least 100 deg AROM in order to demo improved knee flex ROM for stairs and gait. 06/16/23: 115 deg flex AROM 05/30/23: 110 deg flex AROM STG Duration 6 weeks MET College Sports Coach Goal (LTG) Pt will improve L knee flex to > 115 deg AROM in order to demo improved knee flex ROM for stairs, gait, and to be comparable to RLE. 07/04/23: 115 AROM MET; updated to > 115 deg 06/26/23: MET- 115 deg AROM pre- mob 118 post-mob LTG Duration 12 weeks MET; goal updated Progress Towards Goals Progress Towards Goals Progressing Toward Goals,Goals Met Progress Comments Pt progressing toward LLE strength goals, gait goals. Met AROM goals; goals updated. Assessment Summary Assessment Pt fatigues quickly, but reports no knee pain with activity. Performed 6 MWT using spc, ambulating 646 ft. PT cued pt for soft L knee during stance and spc placement more in front of pt. Requires 2 standing rest breaks as pt has decreased activity tolerance. Pt demos improved sequencing and gait mechanics with repetitions, but is used to relying on UE support with FWW for gait. Pt wanting to transition to spc, so PT and pt discussed transitioning to fww then spc. Gait training using spc outside. Pt challenged by 4 curb with spc, requiring CGA with moderate cuing for correct execution in addition to cues for safety. Demos decreased TUG times. Continued with glute/quad strengthening using lunges and TKE with band. Initiated lateral lunges for hip abductor activation. PT educated pt on HEP, safety during AD use at home, goal to transition to less stable AD as pt progresses, and exam findings. Pt and PT in agreement about extending POC. Pt has been seen since April 2023 s/p L TKA. She is currently 12.5 weeks post- op. Pt continues to lack a few degrees of L knee extension, currently 115 deg L knee flexion AROM. Pt currently 4/5 for L hip and knee strength on MMT. Functionally, pt continues to struggle with step up, squat, lunge, and movements requiring increased glute and quad activation. Pt progressing toward strength goals, 6 MWT distance goals, balance goals. Pt also progressing with TUG testing using both FWW and spc, but has not met goals. Pt reports that she continues to have limitations in ability to participate in ADL/IADL, although she has had significant improvement since IE. Pt would benefit from skilled PT for further LLE strengthening, gait and balance training in order to progress to less stable AD, improve activity tolerance, L knee AROM, and QOL in order to return to PLOF. Physical Therapy Plan Frequency and Duration Frequency of Treatment 2x/Week Duration of treatment (weeks) 8 Plan of Care Start Date 07/14/23 Plan of Care End Date 09/12/23 Therapeutic Interventions Therapeutic Interventions Aquatic Therapy,Balance Training,Gait Training,Home Exercise Program,Joint Mobilizations,Manual Therapy, Neuromuscular Re-education, Patient/Caregiver Education, Self-Care/Home Management,Soft Tissue Mobilization,Taping, Therapeutic Activities, Therapeutic Exercises Modalities Cold Pack/Ice Massage,Electric Stimulation,Hot Packs, Iontophoresis,Ultrasound, Vasopneumatic Devices Next Visit Focus/Plan Next Note Type Treatment Note Next Visit Plan Next session: gait training with cane and use of 4ww if not spc, continue step up, leg press, strengthening hip abd/ glutes/quad. Balance training Continue bike if time. Manual: soft tissue, no scar mgmt yet, gentle PROM with flex/ext Plan of Care Dates Plan of Care Start Date 07/14/23 Plan of Care End Date 09/12/23 Electronically Signed by: Enid Cunningham, PT 07/14/23 [id number] If you are in agreement with this Plan of Care, please return a signed and dated copy. I have reviewed this Plan of Care and certify that the skilled therapy services above are required to meet the patient?s needs. Physician Signature Date Printed Name and Credentials Clinical Instructor Signature Printed Name and Credentials
--- NOTE | 2023-07-23 16:22 | PT.OTN ---
Current Diagnoses Unilateral primary osteoarthritis, left knee (07/23/23) Physical Therapy Treatment Note PT-OP-A Visit Information Start: 04/28/23 10:41 Freq: Status: Active Protocol: Document 07/23/23 12:57 SW (Rec: 07/23/23 13:50 SW [id number]) Out-Patient Physical Therapy Visit Information Visit Information Visit Type Treatment Note Visit Note DOS: 04/18/23 Visit Start Time 13:00 Visit Stop Time 13:40 Visit Number 19 Number of GRAVURE PRINTING MACHINIST Visits 1 Precautions Precautions Post-op 04/18/23 (TKA) Fall risk PT-OP-B Current Condition Start: 04/28/23 10:41 Freq: Status: Active Protocol: Document 04/28/23 10:42 NM (Rec: 04/28/23 11:40 NM [id number]) Current Condition History of Current Condition Onset Date 04/18/23 Current Complaints pain, swelling, sleep History of Current Condition Pt presents to clinic with FWW s/p L TKA on 04/19. She is seeing Dr. Patton for her knee. Currently, pt still has her post-op dressings still on and is WBAT with a FWW. Pt has B knee OA, which led to the replacement. She had no pre-op PT. Prior to surgery, she was able to ambulate up to 1/4 mi due to pain, which is a decrease from her baseline which was 1 mi. She is planning on having the R knee replaced in a few months. Pt has steps leading up to her home which is covered by a ramp. She used a FWW for gait prior to surgery due to feeling like she had poor balance; she also has a spc that she uses occasional (not since surgery). Pt reports compliance with HEP from hospital, performing exercises 1-2x/day. She does report some tingling in her LLE down to her foot, but this was occuring prior to her TKA. Her main compliants are pain, weakness, swelling, stiffness, and poor sleep since her surgery. Future Testing and Treatments Planned Follow up 04/[address] Patton Treatment Goals Patient/Caregiver Goals Decrease pain, improve knee motion and strength, be able to sleep without discomfort Prior Functional Status Baseline Function- ADL's Independent Baseline Function- Mobility Independent Baseline Function- Gait FWW or spc for balance; up to 1/4 mi for gait distance Baseline Function- Recreation/Hobbies Gardening (hands and knees) Baseline Function- Other Stairs (no issue) Current Functional Impairments (Reported) Functional Limitations- Mobility/Gait No stairs due to limited motion and pain, no more than household ambulation Functional Limitations- Recreation/ Unable to garden Hobbies PT-OP-C Subjective Start: 04/28/23 10:41 Freq: Status: Active Protocol: Document 07/23/23 12:57 SW (Rec: 07/23/23 13:50 SW [id number]) OP-PT Subjective Patient Comments Patient Comments Pt reports not feeling well last session, had to cancel, reports doing much better now but feels weaker from being sick. PT-OP-D Balance Start: 04/28/23 10:41 Freq: Status: Active Protocol: Document 04/28/23 10:42 NM (Rec: 04/28/23 11:56 NM [id number]) OP-PT Balance Assessment Sitting Balance Static Sitting Balance Ability Normal Dynamic Sitting Balance Ability Normal Standing Balance Static Standing Balance Ability Good Dynamic Standing Balance Ability Fair Device Used FWW Standing Balance Comments Occasional CGA to steady during gait, changing JUVENCIO Denise Fall Scale Copyright Permission PT-OP-E Functional Tests Start: 04/28/23 10:41 Freq: Status: Active Protocol: Document 04/28/23 10:42 NM (Rec: 04/28/23 11:40 NM [id number]) Functional Tests Timed Up and Go (TUG) Score 41.5 sec Comments FWW, SBA PT-OP-F Manual Assessment Start: 04/28/23 10:41 Freq: Status: Active Protocol: Document 04/28/23 10:42 NM (Rec: 04/28/23 11:40 NM [id number]) Manual Assessments Soft Tissue Assessment Soft Tissue Mobility Assessment Soft tissue restrictions of L hamstring. Edema in L ankle, knee and calf. Will need scar mobilization to prevent adhesions once scar is closed and healed. Joint Mobility Assessment Joint Mobility Assessment Empty end feel with PROM, limited mobility PT-OP-G Mobility & Gait Start: 04/28/23 10:41 Freq: Status: Active Protocol: Document 04/28/23 10:42 NM (Rec: 04/28/23 11:40 NM [id number]) OP Gait Assessment Gait Gait Assistance Required: Standby Assistance Distance (Feet) 200 Able to Maintain Weight Bearing Status Yes During Gait Assistive Devices Assistive Device Gait Belt,Straight Cane,Front Wheeled Walker Gait Deviations General Gait Pattern Antalgic,Decreased Stride Length,Step-to Gait Factors Limiting Gait Function Factors Limiting Gait Function Decreased Activity Tolerance, Decreased Strength,Limited Range of Motion,Pain,Poor Balance Comments Gait Comments Primarily uses FWW for gait. Began using FWW for gait prior in Jun 2022 prior to surgery due to poor balance. PT-OP-H Neuro Start: 04/28/23 10:41 Freq: Status: Active Protocol: Document 04/28/23 10:42 NM (Rec: 04/28/23 11:40 NM [id number]) Sensation Evaluation Gross Sensation Gross Sensation WNL Comments Summary Comments LLE intact to light touch sensation in all dermatomes. PT-OP-J Posture/Palpation/Skin Start: 04/28/23 10:41 Freq: Status: Active Protocol: Document 04/28/23 10:42 NM (Rec: 04/28/23 11:40 NM [id number]) Posture Evaluation Position Standing Evaluation View Posterior Pelvis Posture Anteriorly Tilted Weight Distribution Weight Shifted Right,Decreased Wt.Bear on (L) Hip Posture (L) Externally Rotated Knee Posture (L) Genu Valgus,(R) Genu Valgus Patellar Posture (R) Superior Palpation Assessment Location L knee Palpation Location posterior knee, posterior calf , lateral and medial knee Palpation Findings Edema,Soft Tissue Tightness, Tenderness Palpation Details Tenderness and edema along posterior knee and calf. No sign of DVT Tenderness and edema along medial and lateral knee near patella, femoral condyles near joint line Skin Assessment Edema Assessment L ankle Edema Type Non-Pitting Edema Degree 2+ Edema Appearance Discolored,Puffy Circumference Measurement L knee Location 5 cm above patella (60cm), sub patella (51 cm), 10 cm below patella (49 cm) Comments L malleoli (27 cm) with excess on lateral side, at patella ( 56.5 cm) Incisional Assessment Incision Appearance/Comments Bandage is CDI. Still wrapped so could not formally assess incision. No signs of infection around bandage. Will assess further once bandage removed PT-OP-K Range of Motion Start: 04/28/23 10:41 Freq: Status: Active Protocol: Document 07/14/23 12:21 NM (Rec: 07/14/23 13:01 NM [id number]) Knee Goniometric Range of Motion Knee Left Knee ROM WFL No Patient Position Supine Flexion Active (degrees) 115 Flexion Passive (degrees) 115 Extension Active (degrees) 2 Extension Passive (degrees) 1 Comments 07/14/23: 115 deg flex, 2 deg ext lacking 07/04/23: lacks 3 deg ext with active quad contraction; 115 AROM knee flex 05/30/23: 110 deg flex AROM, 5 deg ext AROM 05/30/23: lacking 5 deg ext with active quad contraction @IE: flex 80 deg ext -10 deg PT-OP-M Strength Start: 04/28/23 10:41 Freq: Status: Active Protocol: Document 07/14/23 12:21 NM (Rec: 07/14/23 13:01 NM [id number]) Hip Strength Hip Manual Muscle Testing Left Flexion (L2) 3+ Fair+ Abduction 3+ Fair+ External Rotation 3+ Fair+ Internal Rotation 3+ Fair+ Comments Assessed in sitting due to knee pain 07/14/23, 07/04/23: 4-/5 for all motions, no pain Knee Strength Knee Manual Muscle Testing Left Flexion (S2) 4 Good Extension (L3) 4 Good Comments 07/04/23: 4/5, no pain with resisted motion 05/30/23: 4/5 flex, 4-/5 ext @ IE: flex and ext 3/5 PT-OP-Q Treatments Start: 04/28/23 10:41 Freq: Status: Active Protocol: Document 07/23/23 12:57 SW (Rec: 07/23/23 13:50 SW [id number]) Therapeutic Exercises Standing Exercises Hip Extension Standing Exercise Name Standing hip extension Side bilateral Resistance blue TB Equipment Used @ rail Reps/Minutes 2 x 10 lateral lunge Standing Exercise Name mini-lateral lunge Side bilateral Resistance AROM Equipment Used 2 hand support (flat hands) on ballet bar for balance Reps/Minutes 2x8 Comments cued for knee flex, execution Lunge Standing Exercise Name Mini lunge (both knees flexing ) Side bilateral Resistance AROM Equipment Used ballet bar 1 UE support for balance Reps/Minutes x10 Comments fatiguing; cued for L knee flex Step up Standing Exercise Name 4 Handrail>SPC (trialed 6, heavy compensation BUE) Side left Equipment Used L flat hand rail>SPC Reps/Minutes 2x8, 1x5 on 6 step Comments cont to require inc UE support on 6; improved level hips 4 TKE Standing Exercise Name for knee ext Side left Resistance tanana green tb lvl 3 Equipment Used PT holding band, cueing for only knee flex Reps/Minutes 2x10 with 3 hold Comments at end of session, for HEP with band Other Exercises Sit to stand Other Exercise Name chair Side bilateral Equipment Used 4WW in front Reps/Minutes x15 Comments cues for TKE in stance, fwd weight shift; demos improved glute strength Gait Training Gait Activity SPC Description Gait Device Used SPC Level of Assistance close SBA Surface stable, outside sidewalk, curb Distance/Duration 150 ft, various distances around clinic Treatment Focus gait mechanics with SPC, endurance, strength Comments 2pt gait pattern. Trialed outdoor ambulation as pt wanting to transition toward spc more frequently. Hesistant with stepping down curb. PT cueing for correct execution, CGA>min A to steady while stepping down, x2 reps. Cued for correct execution when stepping up on curb, CGA to steady. Overall, cued for heel >toe, soft L knee stance as fatigues PT-OP-R Modalities Start: 05/30/23 15:01 Freq: Status: Active Protocol: Document 05/30/23 13:54 NM (Rec: 05/30/23 15:07 NM [id number]) Electric Stimulation Electric Stimulation Biphasic Body Location L quad Duration (Minutes) 10 Intensity 18 Frequency 50 Pulse Width 300 Contraction Type Normal Ramp 1.0 Comments 5/5 cycle due to time to maximize contractions Performed in sitting (LAQ), supine (quad sets, SAQ). Skin normal color, intact/dry before, during, after tmt. Skin check after 3 min and at end of session. PT-OP-T Assessment and Plan Start: 04/28/23 10:41 Freq: Status: Active Protocol: Document 07/23/23 12:57 SW (Rec: 07/23/23 13:50 SW [id number]) Physical Therapy Assessment Goals Seven Impairment gait Impairment Unable to complete 6 MWT at IE Short Term Goal (STG) Pt will be able to complete a 6 MWT using LRAD in order to demo improved gait mechanics and activity tolerance for community ambulation. 05/30/23: 798 ft with FWW STG Duration 6 weeks MET Fiber Worker Goal (LTG) Pt will improve 6 MWT distance by at least 100 ft using LRAD in order to demo improved gait mechanics and activity tolerance for community ambulation. 07/14/23: 646 ft with spc, 2 standing rest breaks LTG Duration 12 weeks PROGRESSING Six Impairment function Impairment LEFS 1080 Short Term Goal (STG) Pt will improve LEFS score by at least 9 points (MCID) in order to demo improved activity tolerance and strength. 05/30/23: 53/80 STG Duration 6 weeks MET Fiber Worker Goal (LTG) Pt will improve LEFS score by at least 18 points (2 MCID) in order to demo improved activity tolerance and strength. 05/30/23: 53/80 LTG Duration 12 weeks MET Five Impairment Balance, function Impairment TUG 41.5 sec with FWW Short Term Goal (STG) Pt will decrease TUG score time to at least 30 seconds or less using LRAD in order to demo improved balance during gait and transfers, to decrease fall risk. 07/04/23: 18.4 sec 05/30/23: 21 sec STG Duration 6 weeks MET Fiber Worker Goal (LTG) Pt will decrease TUG score time to at least 15 seconds or less using LRAD in order to demo improved balance during gait and transfers, to decrease fall risk. 07/14/23: 16 sec FWW, 18 sec spc 07/04/23: 18.4 sec LTG Duration 12 weeks PROGRESSING Four Impairment strength Impairment Knee flex 3/5 Short Term Goal (STG) Pt will improve L knee flex strength to at least 4-/5 in order to perform stairs and for propulsion during gait. 05/30/23: 4/5 knee flex STG Duration 6 weeks MET Detention Goal (LTG) Pt will improve L knee flex strength to at least 4+/5 in order to perform stairs and for propulsion during gait. 07/14/23, 07/04/23: 4/5 knee flex MMT LTG Duration 12 weeks PROGRESSING Three Impairment Strength Impairment Knee ext 3/5 Short Term Goal (STG) Pt will improve L knee ext strength to at least 4-/5 in order to demo improved quad control for stability and TKE for gait. 05/30/23: 4-/5 MMT STG Duration 6 weeks MET Fiber Worker Goal (LTG) Pt will improve L knee ext strength to at least 4+/5 in order to demo improved quad control for stability and TKE for gait. 07/14/23, 07/04/24: 4/5 knee ext MMT; functionally limited during step up, squat LTG Duration 12 weeks PROGRESSING Two Impairment ROM Impairment Knee ext 10 deg AROM (lacking) Short Term Goal (STG) Pt will improve L knee ext to at least 5 deg AROM in order to reach terminal knee extension during gait and improve knee stability during stairs/gait. 05/30/23: -5 deg knee ext but demos decreased quad activation STG Duration 6 weeks MET Detention Goal (LTG) Pt will improve L knee ext to at least 1 deg in order to reach terminal knee extension during gait and improve knee stabiltiy during stairs/gait. 07/14/23: lacking 2 deg ext with quad set, heel elevated 07/04/23: 3 with quad set 06/26/23: 1 deg with quad set, heel elevated due to calf LTG Duration 12 weeks PROGRESSING; goal updated One Impairment ROM Impairment Knee flex 80 deg AROM Short Term Goal (STG) Pt will improve L knee flex to at least 100 deg AROM in order to demo improved knee flex ROM for stairs and gait. 06/16/23: 115 deg flex AROM 05/30/23: 110 deg flex AROM STG Duration 6 weeks MET Detention Goal (LTG) Pt will improve L knee flex to > 115 deg AROM in order to demo improved knee flex ROM for stairs, gait, and to be comparable to RLE. 07/04/23: 115 AROM MET; updated to > 115 deg 06/26/23: MET- 115 deg AROM pre- mob 118 post-mob LTG Duration 12 weeks MET; goal updated Assessment Summary Assessment Pt ambulated into session today with 4WW, pt has now discontinued FWW and is now using 4WW for community ambulation and home, using SPC intermittently at home only. Continued SPC ambulation around gym today, pt continues to compensate with onset of fatgue, though improved with self corrections with distance . Initiated Step up onto large 4 step using SPC, pt quick to fatigue, heavy compensation with UE into SPC, cued for flexion and increased weight bearing into LLE, pt may benefit from continued stair training to progress strength and increase pt confidence with AD. Physical Therapy Plan Frequency and Duration Frequency of Treatment 2x/Week Duration of treatment (weeks) 8 Plan of Care Start Date 07/14/23 Plan of Care End Date 09/12/23 Therapeutic Interventions Therapeutic Interventions Aquatic Therapy,Balance Training,Gait Training,Home Exercise Program,Joint Mobilizations,Manual Therapy, Neuromuscular Re-education, Patient/Caregiver Education, Self-Care/Home Management,Soft Tissue Mobilization,Taping, Therapeutic Activities, Therapeutic Exercises Modalities Cold Pack/Ice Massage,Electric Stimulation,Hot Packs, Iontophoresis,Ultrasound, Vasopneumatic Devices Next Visit Focus/Plan Next Note Type Treatment Note Next Visit Plan Next session: gait training with cane and use of 4ww if not spc, continue step up, leg press, strengthening hip abd/ glutes/quad. Balance training Continue bike if time. Manual: soft tissue, no scar mgmt yet, gentle PROM with flex/ext
--- NOTE | 2023-07-29 11:16 | PT.OTN ---
Current Diagnoses Unilateral primary osteoarthritis, left knee (07/29/23) Physical Therapy Treatment Note PT-OP-A Visit Information Start: 04/28/23 10:41 Freq: Status: Active Protocol: Document 07/29/23 10:41 SP (Rec: 07/29/23 11:18 SP [id number]) Out-Patient Physical Therapy Visit Information Visit Information Visit Type Treatment Note Visit Note DOS: 04/18/23 3/10 post PN Visit Start Time 10:41 Visit Stop Time 11:16 Visit Number 20 Number of DATA PROCESSING CONTROL CLERK Visits 2 Evaluation Information Evaluation Date 04/28/23 Precautions Precautions Post-op 04/18/23 (TKA) Fall risk PT-OP-B Current Condition Start: 04/28/23 10:41 Freq: Status: Active Protocol: Document 04/28/23 10:42 NM (Rec: 04/28/23 11:40 NM [id number]) Current Condition History of Current Condition Onset Date 04/18/23 Current Complaints pain, swelling, sleep History of Current Condition Pt presents to clinic with FWW s/p L TKA on 04/19. She is seeing Dr. Patton for her knee. Currently, pt still has her post-op dressings still on and is WBAT with a FWW. Pt has B knee OA, which led to the replacement. She had no pre-op PT. Prior to surgery, she was able to ambulate up to 1/4 mi due to pain, which is a decrease from her baseline which was 1 mi. She is planning on having the R knee replaced in a few months. Pt has steps leading up to her home which is covered by a ramp. She used a FWW for gait prior to surgery due to feeling like she had poor balance; she also has a spc that she uses occasional (not since surgery). Pt reports compliance with HEP from hospital, performing exercises 1-2x/day. She does report some tingling in her LLE down to her foot, but this was occuring prior to her TKA. Her main compliants are pain, weakness, swelling, stiffness, and poor sleep since her surgery. Future Testing and Treatments Planned Follow up 04/[address] Patton Treatment Goals Patient/Caregiver Goals Decrease pain, improve knee motion and strength, be able to sleep without discomfort Prior Functional Status Baseline Function- ADL's Independent Baseline Function- Mobility Independent Baseline Function- Gait FWW or spc for balance; up to 1/4 mi for gait distance Baseline Function- Recreation/Hobbies Gardening (hands and knees) Baseline Function- Other Stairs (no issue) Current Functional Impairments (Reported) Functional Limitations- Mobility/Gait No stairs due to limited motion and pain, no more than household ambulation Functional Limitations- Recreation/ Unable to garden Hobbies PT-OP-C Subjective Start: 04/28/23 10:41 Freq: Status: Active Protocol: Document 07/29/23 10:41 SP (Rec: 07/29/23 11:18 SP [id number]) OP-PT Subjective Patient Comments Patient Comments Pt reports sees Dr Patton on 08/06. She reports using SPC around home now. PT-OP-D Balance Start: 04/28/23 10:41 Freq: Status: Active Protocol: Document 04/28/23 10:42 NM (Rec: 04/28/23 11:56 NM [id number]) OP-PT Balance Assessment Sitting Balance Static Sitting Balance Ability Normal Dynamic Sitting Balance Ability Normal Standing Balance Static Standing Balance Ability Good Dynamic Standing Balance Ability Fair Device Used FWW Standing Balance Comments Occasional CGA to steady during gait, changing JUVENCIO Denise Fall Scale Copyright Permission PT-OP-E Functional Tests Start: 04/28/23 10:41 Freq: Status: Active Protocol: Document 04/28/23 10:42 NM (Rec: 04/28/23 11:40 NM [id number]) Functional Tests Timed Up and Go (TUG) Score 41.5 sec Comments FWW, SBA PT-OP-F Manual Assessment Start: 04/28/23 10:41 Freq: Status: Active Protocol: Document 04/28/23 10:42 NM (Rec: 04/28/23 11:40 NM [id number]) Manual Assessments Soft Tissue Assessment Soft Tissue Mobility Assessment Soft tissue restrictions of L hamstring. Edema in L ankle, knee and calf. Will need scar mobilization to prevent adhesions once scar is closed and healed. Joint Mobility Assessment Joint Mobility Assessment Empty end feel with PROM, limited mobility PT-OP-G Mobility & Gait Start: 04/28/23 10:41 Freq: Status: Active Protocol: Document 04/28/23 10:42 NM (Rec: 04/28/23 11:40 NM [id number]) OP Gait Assessment Gait Gait Assistance Required: Standby Assistance Distance (Feet) 200 Able to Maintain Weight Bearing Status Yes During Gait Assistive Devices Assistive Device Gait Belt,Straight Cane,Front Wheeled Walker Gait Deviations General Gait Pattern Antalgic,Decreased Stride Length,Step-to Gait Factors Limiting Gait Function Factors Limiting Gait Function Decreased Activity Tolerance, Decreased Strength,Limited Range of Motion,Pain,Poor Balance Comments Gait Comments Primarily uses FWW for gait. Began using FWW for gait prior in Jun 2022 prior to surgery due to poor balance. PT-OP-H Neuro Start: 04/28/23 10:41 Freq: Status: Active Protocol: Document 04/28/23 10:42 NM (Rec: 04/28/23 11:40 NM [id number]) Sensation Evaluation Gross Sensation Gross Sensation WNL Comments Summary Comments LLE intact to light touch sensation in all dermatomes. PT-OP-J Posture/Palpation/Skin Start: 04/28/23 10:41 Freq: Status: Active Protocol: Document 04/28/23 10:42 NM (Rec: 04/28/23 11:40 NM [id number]) Posture Evaluation Position Standing Evaluation View Posterior Pelvis Posture Anteriorly Tilted Weight Distribution Weight Shifted Right,Decreased Wt.Bear on (L) Hip Posture (L) Externally Rotated Knee Posture (L) Genu Valgus,(R) Genu Valgus Patellar Posture (R) Superior Palpation Assessment Location L knee Palpation Location posterior knee, posterior calf , lateral and medial knee Palpation Findings Edema,Soft Tissue Tightness, Tenderness Palpation Details Tenderness and edema along posterior knee and calf. No sign of DVT Tenderness and edema along medial and lateral knee near patella, femoral condyles near joint line Skin Assessment Edema Assessment L ankle Edema Type Non-Pitting Edema Degree 2+ Edema Appearance Discolored,Puffy Circumference Measurement L knee Location 5 cm above patella (60cm), sub patella (51 cm), 10 cm below patella (49 cm) Comments L malleoli (27 cm) with excess on lateral side, at patella ( 56.5 cm) Incisional Assessment Incision Appearance/Comments Bandage is CDI. Still wrapped so could not formally assess incision. No signs of infection around bandage. Will assess further once bandage removed PT-OP-K Range of Motion Start: 04/28/23 10:41 Freq: Status: Active Protocol: Document 07/14/23 12:21 NM (Rec: 07/14/23 13:01 NM [id number]) Knee Goniometric Range of Motion Knee Left Knee ROM WFL No Patient Position Supine Flexion Active (degrees) 115 Flexion Passive (degrees) 115 Extension Active (degrees) 2 Extension Passive (degrees) 1 Comments 07/14/23: 115 deg flex, 2 deg ext lacking 07/04/23: lacks 3 deg ext with active quad contraction; 115 AROM knee flex 05/30/23: 110 deg flex AROM, 5 deg ext AROM 05/30/23: lacking 5 deg ext with active quad contraction @IE: flex 80 deg ext -10 deg PT-OP-M Strength Start: 04/28/23 10:41 Freq: Status: Active Protocol: Document 07/14/23 12:21 NM (Rec: 07/14/23 13:01 NM [id number]) Hip Strength Hip Manual Muscle Testing Left Flexion (L2) 3+ Fair+ Abduction 3+ Fair+ External Rotation 3+ Fair+ Internal Rotation 3+ Fair+ Comments Assessed in sitting due to knee pain 07/14/23, 07/04/23: 4-/5 for all motions, no pain Knee Strength Knee Manual Muscle Testing Left Flexion (S2) 4 Good Extension (L3) 4 Good Comments 07/04/23: 4/5, no pain with resisted motion 05/30/23: 4/5 flex, 4-/5 ext @ IE: flex and ext 3/5 PT-OP-Q Treatments Start: 04/28/23 10:41 Freq: Status: Active Protocol: Document 07/29/23 10:41 SP (Rec: 07/29/23 11:18 SP [id number]) Gym Equipment Shuttle Recovery Unilateral Squats Details uni squat (116*) 7 wedge from top/heel 1 off bottom platform Resistance 50 # 2 teal bands Shuttle Recovery Platform Stable Reps/Time L 10, ; R 20 then ROM measurements Bilateral Squats Details B squats- 104* (sled can't go further down at wedge pos) Resistance 75 teal bands Shuttle Recovery Platform Stable Reps/Time x20 Therapeutic Exercises Standing Exercises Lunge Standing Exercise Name Mini lunge (both knees flexing ) Side bilateral Resistance AROM ( Equipment Used ballet bar 1 UE support for balance/opp LE fwd Reps/Minutes x12 R ft bwd, 8 reps L ft bwd Comments fatiguing; cued for L knee flex in back position Other Exercises Sit to stand Other Exercise Name 1. STS 2. eccentric taps Side bilateral Equipment Used 4WW in front, mesh chair Reps/Minutes 5 reps each Comments good form, slight R knee twinge last rep coming to stand Gait Training Gait Activity SPC Description Gait Device Used SPC Level of Assistance close SBA Surface stable, outside sidewalk, curb Distance/Duration 150 ft Treatment Focus gait mechanics with SPC, endurance, strength Comments 2pt gait pattern. Hesistant with stepping down curb. PT cueing for correct execution, CGA>min A to steady while stepping down, x2 reps. Cued for correct execution when stepping up on curb, CGA to steady. Overall, cued for heel >toe, soft L knee stance as fatigues Normal Gait Description fwd/bwd front mirror Device Used 0. light contact either elbow Distance/Duration 20 ft Comments cued rhomboid fac Neuro Re-Education Treatment Balance Activities hurdles Equipment 6 hurdles, //bar 1support Comments 1. Fwd/bwd ROM- light contact rail 2. step to 2 lengthe (15% per pt ) 3. step over step PT-OP-R Modalities Start: 05/30/23 15:01 Freq: Status: Active Protocol: Document 05/30/23 13:54 NM (Rec: 05/30/23 15:07 NM [id number]) Electric Stimulation Electric Stimulation Biphasic Body Location L quad Duration (Minutes) 10 Intensity 18 Frequency 50 Pulse Width 300 Contraction Type Normal Ramp 1.0 Comments 5/5 cycle due to time to maximize contractions Performed in sitting (LAQ), supine (quad sets, SAQ). Skin normal color, intact/dry before, during, after tmt. Skin check after 3 min and at end of session. PT-OP-T Assessment and Plan Start: 04/28/23 10:41 Freq: Status: Active Protocol: Document 07/29/23 10:41 SP (Rec: 07/29/23 11:18 SP [id number]) Physical Therapy Assessment Goals Seven Impairment gait Impairment Unable to complete 6 MWT at IE Short Term Goal (STG) Pt will be able to complete a 6 MWT using LRAD in order to demo improved gait mechanics and activity tolerance for community ambulation. 05/30/23: 798 ft with FWW STG Duration 6 weeks MET Snf Goal (LTG) Pt will improve 6 MWT distance by at least 100 ft using LRAD in order to demo improved gait mechanics and activity tolerance for community ambulation. 07/14/23: 646 ft with spc, 2 standing rest breaks LTG Duration 12 weeks PROGRESSING Six Impairment function Impairment LEFS 10/80 Short Term Goal (STG) Pt will improve LEFS score by at least 9 points (MCID) in order to demo improved activity tolerance and strength. 05/30/23: 53/80 STG Duration 6 weeks MET Snf Goal (LTG) Pt will improve LEFS score by at least 18 points (2 MCID) in order to demo improved activity tolerance and strength. 05/30/23: 53/80 LTG Duration 12 weeks MET Five Impairment Balance, function Impairment TUG 41.5 sec with FWW Short Term Goal (STG) Pt will decrease TUG score time to at least 30 seconds or less using LRAD in order to demo improved balance during gait and transfers, to decrease fall risk. 07/04/23: 18.4 sec 05/30/23: 21 sec STG Duration 6 weeks MET Ob Tech Goal (LTG) Pt will decrease TUG score time to at least 15 seconds or less using LRAD in order to demo improved balance during gait and transfers, to decrease fall risk. 07/14/23: 16 sec FWW, 18 sec spc 07/04/23: 18.4 sec LTG Duration 12 weeks PROGRESSING Four Impairment strength Impairment Knee flex 3/5 Short Term Goal (STG) Pt will improve L knee flex strength to at least 4-/5 in order to perform stairs and for propulsion during gait. 05/30/23: 4/5 knee flex STG Duration 6 weeks MET Ob Tech Goal (LTG) Pt will improve L knee flex strength to at least 4+/5 in order to perform stairs and for propulsion during gait. 07/14/23, 07/04/23: 4/5 knee flex MMT LTG Duration 12 weeks PROGRESSING Three Impairment Strength Impairment Knee ext 3/5 Short Term Goal (STG) Pt will improve L knee ext strength to at least 4-/5 in order to demo improved quad control for stability and TKE for gait. 05/30/23: 4-/5 MMT STG Duration 6 weeks MET Snf Goal (LTG) Pt will improve L knee ext strength to at least 4+/5 in order to demo improved quad control for stability and TKE for gait. 07/14/23, 07/04/24: 4/5 knee ext MMT; functionally limited during step up, squat LTG Duration 12 weeks PROGRESSING Two Impairment ROM Impairment Knee ext 10 deg AROM (lacking) Short Term Goal (STG) Pt will improve L knee ext to at least 5 deg AROM in order to reach terminal knee extension during gait and improve knee stability during stairs/gait. 05/30/23: -5 deg knee ext but demos decreased quad activation STG Duration 6 weeks MET Ob Tech Goal (LTG) Pt will improve L knee ext to at least 1 deg in order to reach terminal knee extension during gait and improve knee stabiltiy during stairs/gait. 07/14/23: lacking 2 deg ext with quad set, heel elevated 07/04/23: 3 with quad set 06/26/23: 1 deg with quad set, heel elevated due to calf LTG Duration 12 weeks PROGRESSING; goal updated One Impairment ROM Impairment Knee flex 80 deg AROM Short Term Goal (STG) Pt will improve L knee flex to at least 100 deg AROM in order to demo improved knee flex ROM for stairs and gait. 06/16/23: 115 deg flex AROM 05/30/23: 110 deg flex AROM STG Duration 6 weeks MET Snf Goal (LTG) Pt will improve L knee flex to > 115 deg AROM in order to demo improved knee flex ROM for stairs, gait, and to be comparable to RLE. 07/04/23: 115 AROM MET; updated to > 115 deg 06/26/23: MET- 115 deg AROM pre- mob 118 post-mob LTG Duration 12 weeks MET; goal updated Assessment Summary Assessment Pt improved more midline trunk front mirror during gait no AD with cues for tall/rhomboid fac, awareness of LLE TKE during midstance phase able to complete fwd/bwd close SBA- light CGA as needed. Ed for WB RUE on SPC needed carryover to allow progression into stability and strengthening L LE stance time gait, reduce concern L knee buckling. Pt good form ther ex lunges and sit/stand chair taps without UE support today. Improved L knee ROM use hurdles, able receiprocal stepping with very light hand glide on rail, trail foot caught at times but self recovery on rail. Physical Therapy Plan Frequency and Duration Frequency of Treatment 2x/Week Duration of treatment (weeks) 8 Plan of Care Start Date 07/14/23 Plan of Care End Date 09/12/23 Therapeutic Interventions Therapeutic Interventions Aquatic Therapy,Balance Training,Gait Training,Home Exercise Program,Joint Mobilizations,Manual Therapy, Neuromuscular Re-education, Patient/Caregiver Education, Self-Care/Home Management,Soft Tissue Mobilization,Taping, Therapeutic Activities, Therapeutic Exercises Modalities Cold Pack/Ice Massage,Electric Stimulation,Hot Packs, Iontophoresis,Ultrasound, Vasopneumatic Devices Next Visit Focus/Plan Next Note Type Treatment Note Next Visit Plan Next session: gait training with cane continue step up, leg press, strengthening hip abd/glutes/quad. Balance training. Continue bike if time. Initiate knee/ankle mobility on step for gain self AAROM LAndrae Hurdles with SPC vs //bar. Manual: soft tissue, no scar mgmt yet, gentle PROM with flex/ext
--- NOTE | 2023-08-05 16:20 | PT.OTN ---
Current Diagnoses Unilateral primary osteoarthritis, left knee (08/05/23) Physical Therapy Treatment Note PT-OP-A Visit Information Start: 04/28/23 10:41 Freq: Status: Active Protocol: Document 08/05/23 12:55 SW (Rec: 08/05/23 13:46 SW [id number]) Out-Patient Physical Therapy Visit Information Visit Information Visit Type Treatment Note Visit Note DOS: 04/18/23 4/10 post PN Visit Start Time 13:00 Visit Stop Time 13:40 Visit Number 21 Number of CONTINUOUS MINER Visits 3 Precautions Precautions Post-op 04/18/23 (TKA) Fall risk PT-OP-B Current Condition Start: 04/28/23 10:41 Freq: Status: Active Protocol: Document 04/28/23 10:42 NM (Rec: 04/28/23 11:40 NM [id number]) Current Condition History of Current Condition Onset Date 04/18/23 Current Complaints pain, swelling, sleep History of Current Condition Pt presents to clinic with FWW s/p L TKA on 04/19. She is seeing Dr. Patton for her knee. Currently, pt still has her post-op dressings still on and is WBAT with a FWW. Pt has B knee OA, which led to the replacement. She had no pre-op PT. Prior to surgery, she was able to ambulate up to 1/4 mi due to pain, which is a decrease from her baseline which was 1 mi. She is planning on having the R knee replaced in a few months. Pt has steps leading up to her home which is covered by a ramp. She used a FWW for gait prior to surgery due to feeling like she had poor balance; she also has a spc that she uses occasional (not since surgery). Pt reports compliance with HEP from hospital, performing exercises 1-2x/day. She does report some tingling in her LLE down to her foot, but this was occuring prior to her TKA. Her main compliants are pain, weakness, swelling, stiffness, and poor sleep since her surgery. Future Testing and Treatments Planned Follow up 04/[address] Patton Treatment Goals Patient/Caregiver Goals Decrease pain, improve knee motion and strength, be able to sleep without discomfort Prior Functional Status Baseline Function- ADL's Independent Baseline Function- Mobility Independent Baseline Function- Gait FWW or spc for balance; up to 1/4 mi for gait distance Baseline Function- Recreation/Hobbies Gardening (hands and knees) Baseline Function- Other Stairs (no issue) Current Functional Impairments (Reported) Functional Limitations- Mobility/Gait No stairs due to limited motion and pain, no more than household ambulation Functional Limitations- Recreation/ Unable to garden Hobbies PT-OP-C Subjective Start: 04/28/23 10:41 Freq: Status: Active Protocol: Document 08/05/23 12:55 SW (Rec: 08/05/23 13:46 SW [id number]) OP-PT Subjective Patient Comments Patient Comments Pt reports feeling more confident, using SPC more at home. Pt repots pulling in L hip/LB are during sitting and with some motions. PT-OP-D Balance Start: 04/28/23 10:41 Freq: Status: Active Protocol: Document 04/28/23 10:42 NM (Rec: 04/28/23 11:56 NM [id number]) OP-PT Balance Assessment Sitting Balance Static Sitting Balance Ability Normal Dynamic Sitting Balance Ability Normal Standing Balance Static Standing Balance Ability Good Dynamic Standing Balance Ability Fair Device Used FWW Standing Balance Comments Occasional CGA to steady during gait, changing JUVENCIO Denise Fall Scale Copyright Permission PT-OP-E Functional Tests Start: 04/28/23 10:41 Freq: Status: Active Protocol: Document 04/28/23 10:42 NM (Rec: 04/28/23 11:40 NM [id number]) Functional Tests Timed Up and Go (TUG) Score 41.5 sec Comments FWW, SBA PT-OP-F Manual Assessment Start: 04/28/23 10:41 Freq: Status: Active Protocol: Document 04/28/23 10:42 NM (Rec: 04/28/23 11:40 NM [id number]) Manual Assessments Soft Tissue Assessment Soft Tissue Mobility Assessment Soft tissue restrictions of L hamstring. Edema in L ankle, knee and calf. Will need scar mobilization to prevent adhesions once scar is closed and healed. Joint Mobility Assessment Joint Mobility Assessment Empty end feel with PROM, limited mobility PT-OP-G Mobility & Gait Start: 04/28/23 10:41 Freq: Status: Active Protocol: Document 04/28/23 10:42 NM (Rec: 04/28/23 11:40 NM [id number]) OP Gait Assessment Gait Gait Assistance Required: Standby Assistance Distance (Feet) 200 Able to Maintain Weight Bearing Status Yes During Gait Assistive Devices Assistive Device Gait Belt,Straight Cane,Front Wheeled Walker Gait Deviations General Gait Pattern Antalgic,Decreased Stride Length,Step-to Gait Factors Limiting Gait Function Factors Limiting Gait Function Decreased Activity Tolerance, Decreased Strength,Limited Range of Motion,Pain,Poor Balance Comments Gait Comments Primarily uses FWW for gait. Began using FWW for gait prior in Jun 2022 prior to surgery due to poor balance. PT-OP-H Neuro Start: 04/28/23 10:41 Freq: Status: Active Protocol: Document 04/28/23 10:42 NM (Rec: 04/28/23 11:40 NM [id number]) Sensation Evaluation Gross Sensation Gross Sensation WNL Comments Summary Comments LLE intact to light touch sensation in all dermatomes. PT-OP-J Posture/Palpation/Skin Start: 04/28/23 10:41 Freq: Status: Active Protocol: Document 04/28/23 10:42 NM (Rec: 04/28/23 11:40 NM [id number]) Posture Evaluation Position Standing Evaluation View Posterior Pelvis Posture Anteriorly Tilted Weight Distribution Weight Shifted Right,Decreased Wt.Bear on (L) Hip Posture (L) Externally Rotated Knee Posture (L) Genu Valgus,(R) Genu Valgus Patellar Posture (R) Superior Palpation Assessment Location L knee Palpation Location posterior knee, posterior calf , lateral and medial knee Palpation Findings Edema,Soft Tissue Tightness, Tenderness Palpation Details Tenderness and edema along posterior knee and calf. No sign of DVT Tenderness and edema along medial and lateral knee near patella, femoral condyles near joint line Skin Assessment Edema Assessment L ankle Edema Type Non-Pitting Edema Degree 2+ Edema Appearance Discolored,Puffy Circumference Measurement L knee Location 5 cm above patella (60cm), sub patella (51 cm), 10 cm below patella (49 cm) Comments L malleoli (27 cm) with excess on lateral side, at patella ( 56.5 cm) Incisional Assessment Incision Appearance/Comments Bandage is CDI. Still wrapped so could not formally assess incision. No signs of infection around bandage. Will assess further once bandage removed PT-OP-K Range of Motion Start: 04/28/23 10:41 Freq: Status: Active Protocol: Document 07/14/23 12:21 NM (Rec: 07/14/23 13:01 NM [id number]) Knee Goniometric Range of Motion Knee Left Knee ROM WFL No Patient Position Supine Flexion Active (degrees) 115 Flexion Passive (degrees) 115 Extension Active (degrees) 2 Extension Passive (degrees) 1 Comments 07/14/23: 115 deg flex, 2 deg ext lacking 07/04/23: lacks 3 deg ext with active quad contraction; 115 AROM knee flex 05/30/23: 110 deg flex AROM, 5 deg ext AROM 05/30/23: lacking 5 deg ext with active quad contraction @IE: flex 80 deg ext -10 deg PT-OP-M Strength Start: 04/28/23 10:41 Freq: Status: Active Protocol: Document 07/14/23 12:21 NM (Rec: 07/14/23 13:01 NM [id number]) Hip Strength Hip Manual Muscle Testing Left Flexion (L2) 3+ Fair+ Abduction 3+ Fair+ External Rotation 3+ Fair+ Internal Rotation 3+ Fair+ Comments Assessed in sitting due to knee pain 07/14/23, 07/04/23: 4-/5 for all motions, no pain Knee Strength Knee Manual Muscle Testing Left Flexion (S2) 4 Good Extension (L3) 4 Good Comments 07/04/23: 4/5, no pain with resisted motion 05/30/23: 4/5 flex, 4-/5 ext @ IE: flex and ext 3/5 PT-OP-Q Treatments Start: 04/28/23 10:41 Freq: Status: Active Protocol: Document 08/05/23 12:55 SW (Rec: 08/05/23 13:46 SW [id number]) Gym Equipment Shuttle Recovery Unilateral Squats Details uni squat (116*) 7 wedge from top/heel 1 off bottom platform Resistance 50 # 2 teal bands Shuttle Recovery Platform Stable Reps/Time Left 2x10 Bilateral Squats Details B squats- (118*) Resistance 75 teal bands Shuttle Recovery Platform Stable Reps/Time 2x15 Therapeutic Exercises Standing Exercises Gastroc stretch Standing Exercise Name Standing gastroc stretch> sitting (issued HEP) Equipment Used @ rail Reps/Minutes 3 x 30 lateral lunge Standing Exercise Name lateral lunge Side bilateral Resistance AROM Equipment Used 2 hand support (flat hands) on ballet bar for balance Reps/Minutes 2x10 Comments cued for knee flex, execution Lunge Standing Exercise Name Mini lunge (both knees flexing ) Side bilateral Resistance AROM ( Equipment Used ballet bar 1 UE support for balance/opp LE fwd Reps/Minutes x10 R ft bwd, x10 reps L ft bwd Comments fatiguing; cued for L knee flex in back position Other Exercises Sit to stand Other Exercise Name 1. STS 2. eccentric taps Side bilateral Equipment Used 4WW in front, mesh chair Reps/Minutes x5, 2x10 Comments good form, slight R knee twinge last rep coming to stand Gait Training Gait Activity SPC Description Gait Device Used SPC Level of Assistance close SBA Surface stable Distance/Duration 120 ft Treatment Focus gait mechanics with SPC, endurance, strength Comments 2pt gait pattern. Heel>toe strike, mechanics PT-OP-R Modalities Start: 05/30/23 15:01 Freq: Status: Active Protocol: Document 05/30/23 13:54 NM (Rec: 05/30/23 15:07 NM [id number]) Electric Stimulation Electric Stimulation Biphasic Body Location L quad Duration (Minutes) 10 Intensity 18 Frequency 50 Pulse Width 300 Contraction Type Normal Ramp 1.0 Comments 5/5 cycle due to time to maximize contractions Performed in sitting (LAQ), supine (quad sets, SAQ). Skin normal color, intact/dry before, during, after tmt. Skin check after 3 min and at end of session. PT-OP-T Assessment and Plan Start: 04/28/23 10:41 Freq: Status: Active Protocol: Document 08/05/23 12:55 SW (Rec: 08/05/23 13:46 SW [id number]) Physical Therapy Assessment Goals Seven Impairment gait Impairment Unable to complete 6 MWT at IE Short Term Goal (STG) Pt will be able to complete a 6 MWT using LRAD in order to demo improved gait mechanics and activity tolerance for community ambulation. 05/30/23: 798 ft with FWW STG Duration 6 weeks MET Credit Risk Associate Goal (LTG) Pt will improve 6 MWT distance by at least 100 ft using LRAD in order to demo improved gait mechanics and activity tolerance for community ambulation. 07/14/23: 646 ft with spc, 2 standing rest breaks LTG Duration 12 weeks PROGRESSING Six Impairment function Impairment LEFS 10/80 Short Term Goal (STG) Pt will improve LEFS score by at least 9 points (MCID) in order to demo improved activity tolerance and strength. 05/30/23: 53/80 STG Duration 6 weeks MET Residential Goal (LTG) Pt will improve LEFS score by at least 18 points (2 MCID) in order to demo improved activity tolerance and strength. 05/30/23: 53/80 LTG Duration 12 weeks MET Five Impairment Balance, function Impairment TUG 41.5 sec with FWW Short Term Goal (STG) Pt will decrease TUG score time to at least 30 seconds or less using LRAD in order to demo improved balance during gait and transfers, to decrease fall risk. 07/04/23: 18.4 sec 05/30/23: 21 sec STG Duration 6 weeks MET Credit Risk Associate Goal (LTG) Pt will decrease TUG score time to at least 15 seconds or less using LRAD in order to demo improved balance during gait and transfers, to decrease fall risk. 07/14/23: 16 sec FWW, 18 sec spc 07/04/23: 18.4 sec LTG Duration 12 weeks PROGRESSING Four Impairment strength Impairment Knee flex 3/5 Short Term Goal (STG) Pt will improve L knee flex strength to at least 4-/5 in order to perform stairs and for propulsion during gait. 05/30/23: 4/5 knee flex STG Duration 6 weeks MET Credit Risk Associate Goal (LTG) Pt will improve L knee flex strength to at least 4+/5 in order to perform stairs and for propulsion during gait. 07/14/23, 07/04/23: 4/5 knee flex MMT LTG Duration 12 weeks PROGRESSING Three Impairment Strength Impairment Knee ext 3/5 Short Term Goal (STG) Pt will improve L knee ext strength to at least 4-/5 in order to demo improved quad control for stability and TKE for gait. 05/30/23: 4-/5 MMT STG Duration 6 weeks MET Residential Goal (LTG) Pt will improve L knee ext strength to at least 4+/5 in order to demo improved quad control for stability and TKE for gait. 07/14/23, 07/04/24: 4/5 knee ext MMT; functionally limited during step up, squat LTG Duration 12 weeks PROGRESSING Two Impairment ROM Impairment Knee ext 10 deg AROM (lacking) Short Term Goal (STG) Pt will improve L knee ext to at least 5 deg AROM in order to reach terminal knee extension during gait and improve knee stability during stairs/gait. 05/30/23: -5 deg knee ext but demos decreased quad activation STG Duration 6 weeks MET Residential Goal (LTG) Pt will improve L knee ext to at least 1 deg in order to reach terminal knee extension during gait and improve knee stabiltiy during stairs/gait. 07/14/23: lacking 2 deg ext with quad set, heel elevated 07/04/23: 3 with quad set 06/26/23: 1 deg with quad set, heel elevated due to calf LTG Duration 12 weeks PROGRESSING; goal updated One Impairment ROM Impairment Knee flex 80 deg AROM Short Term Goal (STG) Pt will improve L knee flex to at least 100 deg AROM in order to demo improved knee flex ROM for stairs and gait. 06/16/23: 115 deg flex AROM 05/30/23: 110 deg flex AROM STG Duration 6 weeks MET Residential Goal (LTG) Pt will improve L knee flex to > 115 deg AROM in order to demo improved knee flex ROM for stairs, gait, and to be comparable to RLE. 07/04/23: 115 AROM MET; updated to > 115 deg 06/26/23: MET- 115 deg AROM pre- mob 118 post-mob LTG Duration 12 weeks MET; goal updated Assessment Summary Assessment Progressed pt with increased reps during strengthening exercises this session, pt fatigued by EOS, tolerated well with no discomfort reported. Initiated and issued HEP HO for gastrocnemius stretch to assist with L knee extension. Pt is now using SPC at home more, and reports feeling more confident. Physical Therapy Plan Frequency and Duration Frequency of Treatment 2x/Week Duration of treatment (weeks) 8 Plan of Care Start Date 07/14/23 Plan of Care End Date 09/12/23 Therapeutic Interventions Therapeutic Interventions Aquatic Therapy,Balance Training,Gait Training,Home Exercise Program,Joint Mobilizations,Manual Therapy, Neuromuscular Re-education, Patient/Caregiver Education, Self-Care/Home Management,Soft Tissue Mobilization,Taping, Therapeutic Activities, Therapeutic Exercises Modalities Cold Pack/Ice Massage,Electric Stimulation,Hot Packs, Iontophoresis,Ultrasound, Vasopneumatic Devices Next Visit Focus/Plan Next Note Type Treatment Note Next Visit Plan Next session: gait training with cane continue step up, leg press, strengthening hip abd/glutes/quad. Balance training. Continue bike if time. Initiate knee/ankle mobility on step for gain self AAROM L. Hurdles with SPC vs //bar. Manual: soft tissue, no scar mgmt yet, gentle PROM with flex/ext
--- NOTE | 2023-08-13 12:16 | PT.OTN ---
Current Diagnoses Unilateral primary osteoarthritis, left knee (08/13/23) Physical Therapy Treatment Note PT-OP-A Visit Information Start: 04/28/23 10:41 Freq: Status: Active Protocol: Document 08/13/23 11:17 NM (Rec: 08/13/23 12:16 NM [id number]) Out-Patient Physical Therapy Visit Information Visit Information Visit Type Progress Note Visit Note DOS: 04/18/23 Visit Start Time 11:17 Visit Stop Time 12:00 Visit Number 22 Evaluation Information Evaluation Date 04/28/23 Precautions Precautions Post-op 04/18/23 (TKA) Fall risk PT-OP-B Current Condition Start: 04/28/23 10:41 Freq: Status: Active Protocol: Document 04/28/23 10:42 NM (Rec: 04/28/23 11:40 NM [id number]) Current Condition History of Current Condition Onset Date 04/18/23 Current Complaints pain, swelling, sleep History of Current Condition Pt presents to clinic with FWW s/p L TKA on 04/19. She is seeing Dr. Patton for her knee. Currently, pt still has her post-op dressings still on and is WBAT with a FWW. Pt has B knee OA, which led to the replacement. She had no pre-op PT. Prior to surgery, she was able to ambulate up to 1/4 mi due to pain, which is a decrease from her baseline which was 1 mi. She is planning on having the R knee replaced in a few months. Pt has steps leading up to her home which is covered by a ramp. She used a FWW for gait prior to surgery due to feeling like she had poor balance; she also has a spc that she uses occasional (not since surgery). Pt reports compliance with HEP from hospital, performing exercises 1-2x/day. She does report some tingling in her LLE down to her foot, but this was occuring prior to her TKA. Her main compliants are pain, weakness, swelling, stiffness, and poor sleep since her surgery. Future Testing and Treatments Planned Follow up 04/[address] Patton Treatment Goals Patient/Caregiver Goals Decrease pain, improve knee motion and strength, be able to sleep without discomfort Prior Functional Status Baseline Function- ADL's Independent Baseline Function- Mobility Independent Baseline Function- Gait FWW or spc for balance; up to 1/4 mi for gait distance Baseline Function- Recreation/Hobbies Gardening (hands and knees) Baseline Function- Other Stairs (no issue) Current Functional Impairments (Reported) Functional Limitations- Mobility/Gait No stairs due to limited motion and pain, no more than household ambulation Functional Limitations- Recreation/ Unable to garden Hobbies PT-OP-C Subjective Start: 04/28/23 10:41 Freq: Status: Active Protocol: Document 08/13/23 11:17 NM (Rec: 08/13/23 12:16 NM [id number]) OP-PT Subjective Patient Comments Patient Comments Pt reports that she has occasionally L stiffness and quad discomfort. PT-OP-D Balance Start: 04/28/23 10:41 Freq: Status: Active Protocol: Document 04/28/23 10:42 NM (Rec: 04/28/23 11:56 NM [id number]) OP-PT Balance Assessment Sitting Balance Static Sitting Balance Ability Normal Dynamic Sitting Balance Ability Normal Standing Balance Static Standing Balance Ability Good Dynamic Standing Balance Ability Fair Device Used FWW Standing Balance Comments Occasional CGA to steady during gait, changing JUVENCIO Denise Fall Scale Copyright Permission PT-OP-E Functional Tests Start: 04/28/23 10:41 Freq: Status: Active Protocol: Document 04/28/23 10:42 NM (Rec: 04/28/23 11:40 NM [id number]) Functional Tests Timed Up and Go (TUG) Score 41.5 sec Comments FWW, SBA PT-OP-F Manual Assessment Start: 04/28/23 10:41 Freq: Status: Active Protocol: Document 04/28/23 10:42 NM (Rec: 04/28/23 11:40 NM [id number]) Manual Assessments Soft Tissue Assessment Soft Tissue Mobility Assessment Soft tissue restrictions of L hamstring. Edema in L ankle, knee and calf. Will need scar mobilization to prevent adhesions once scar is closed and healed. Joint Mobility Assessment Joint Mobility Assessment Empty end feel with PROM, limited mobility PT-OP-G Mobility & Gait Start: 04/28/23 10:41 Freq: Status: Active Protocol: Document 04/28/23 10:42 NM (Rec: 04/28/23 11:40 NM [id number]) OP Gait Assessment Gait Gait Assistance Required: Standby Assistance Distance (Feet) 200 Able to Maintain Weight Bearing Status Yes During Gait Assistive Devices Assistive Device Gait Belt,Straight Cane,Front Wheeled Walker Gait Deviations General Gait Pattern Antalgic,Decreased Stride Length,Step-to Gait Factors Limiting Gait Function Factors Limiting Gait Function Decreased Activity Tolerance, Decreased Strength,Limited Range of Motion,Pain,Poor Balance Comments Gait Comments Primarily uses FWW for gait. Began using FWW for gait prior in Jun 2022 prior to surgery due to poor balance. PT-OP-H Neuro Start: 04/28/23 10:41 Freq: Status: Active Protocol: Document 04/28/23 10:42 NM (Rec: 04/28/23 11:40 NM [id number]) Sensation Evaluation Gross Sensation Gross Sensation WNL Comments Summary Comments LLE intact to light touch sensation in all dermatomes. PT-OP-J Posture/Palpation/Skin Start: 04/28/23 10:41 Freq: Status: Active Protocol: Document 04/28/23 10:42 NM (Rec: 04/28/23 11:40 NM [id number]) Posture Evaluation Position Standing Evaluation View Posterior Pelvis Posture Anteriorly Tilted Weight Distribution Weight Shifted Right,Decreased Wt.Bear on (L) Hip Posture (L) Externally Rotated Knee Posture (L) Genu Valgus,(R) Genu Valgus Patellar Posture (R) Superior Palpation Assessment Location L knee Palpation Location posterior knee, posterior calf , lateral and medial knee Palpation Findings Edema,Soft Tissue Tightness, Tenderness Palpation Details Tenderness and edema along posterior knee and calf. No sign of DVT Tenderness and edema along medial and lateral knee near patella, femoral condyles near joint line Skin Assessment Edema Assessment L ankle Edema Type Non-Pitting Edema Degree 2+ Edema Appearance Discolored,Puffy Circumference Measurement L knee Location 5 cm above patella (60cm), sub patella (51 cm), 10 cm below patella (49 cm) Comments L malleoli (27 cm) with excess on lateral side, at patella ( 56.5 cm) Incisional Assessment Incision Appearance/Comments Bandage is CDI. Still wrapped so could not formally assess incision. No signs of infection around bandage. Will assess further once bandage removed PT-OP-K Range of Motion Start: 04/28/23 10:41 Freq: Status: Active Protocol: Document 08/13/23 11:17 NM (Rec: 08/13/23 12:16 NM [id number]) Knee Goniometric Range of Motion Knee Left Knee ROM WFL No Patient Position Supine Flexion Active (degrees) 115 Flexion Passive (degrees) 115 Extension Active (degrees) 2 Extension Passive (degrees) 1 Comments 08/13/23: 116 flexion, 0 deg extension 07/14/23: 115 deg flex, 2 deg ext lacking 07/04/23: lacks 3 deg ext with active quad contraction; 115 AROM knee flex 05/30/23: 110 deg flex AROM, 5 deg ext AROM 05/30/23: lacking 5 deg ext with active quad contraction @IE: flex 80 deg ext -10 deg PT-OP-M Strength Start: 04/28/23 10:41 Freq: Status: Active Protocol: Document 08/13/23 11:17 NM (Rec: 08/13/23 12:16 NM [id number]) Hip Strength Hip Manual Muscle Testing Left Flexion (L2) 3+ Fair+ Abduction 3+ Fair+ External Rotation 3+ Fair+ Internal Rotation 3+ Fair+ Comments Assessed in sitting due to knee pain 08/13/23: 4/5 for all 07/14/23, 07/04/23: 4-/5 for all motions, no pain Knee Strength Knee Manual Muscle Testing Left Flexion (S2) 4 Good Extension (L3) 4 Good Comments 08/13/23: 4+/5 for flex, 4/5 ext 07/04/23: 4/5, no pain with resisted motion 05/30/23: 4/5 flex, 4-/5 ext @ IE: flex and ext 3/5 PT-OP-Q Treatments Start: 04/28/23 10:41 Freq: Status: Active Protocol: Document 08/13/23 11:17 NM (Rec: 08/13/23 12:16 NM [id number]) Therapeutic Exercises Sitting Exercises hip abduction Sitting Exercise Name 1. seated, 2. isometric Side bilateral Resistance lvl 3 [place] tb Equipment Used feet flat Reps/Minutes 1. 2x10, 2. 1x60 Comments I like how this feels, good feedback for Standing Exercises Lunge Standing Exercise Name Mini lunge (both knees flexing ) Side bilateral Resistance AROM ( Equipment Used ballet bar 1 UE flat support for balance/opp LE fwd Reps/Minutes 1x10 ea Comments improved B knee flex, cued neutral toes Side steps Standing Exercise Name Side steps Side bilateral Resistance green TB at ankles Equipment Used ballet bar Reps/Minutes 2x10 ft Comments cued slight knee flex, bigger steps Step up Standing Exercise Name 6 steps Side left Equipment Used 1 rail use, flat hand Reps/Minutes 1x5, end of session Comments fatiguing; cue limit fwd trunk flex, use strong glute for step Gait Training Gait Activity SPC Description Gait Device Used SPC Level of Assistance close SBA Surface stable Distance/Duration 200 ft Treatment Focus gait mechanics with SPC, endurance, strength Comments 2pt gait pattern. Heel>toe strike, mechanics, knee flexion during swing phase with improved weight acceptance using quad over locking L knee, spc placement closer to body 6 MWT Device Used spc Level of Assistance close SBA Surface stable- carpet, tile Distance/Duration 588 ft Treatment Focus endurance, nml gait, TKE Comments Cued heel > toe, increased toe off into swing, soft L knee into stance. As pt fatigues, demos decreased gait speed, stiffer L stance. Requires 2 standing rest breaks up to 10 sec. Very fatigued by end of test Manual Therapy Treatment Joint Mobilizations L knee Joint P-A on tibia for flex Grade III Body Position Supine Reps/Duration 2x30 Comments Grade III mobilizations to increase knee flex ROM, no pain with mobilization Patella Direction superior/inferior, medial/ lateral Grade III Body Position Supine Reps/Duration 1x10 ea direction Comments To improve knee flex mobility. Performed in various deg of knee flex Manual Techniques PROM Type L knee flex Body Position Supine Reps/Duration 10x10 Comments Supine quad stretch to pt tolerance PT-OP-R Modalities Start: 05/30/23 15:01 Freq: Status: Active Protocol: Document 05/30/23 13:54 NM (Rec: 05/30/23 15:07 NM [id number]) Electric Stimulation Electric Stimulation Biphasic Body Location L quad Duration (Minutes) 10 Intensity 18 Frequency 50 Pulse Width 300 Contraction Type Normal Ramp 1.0 Comments 5/5 cycle due to time to maximize contractions Performed in sitting (LAQ), supine (quad sets, SAQ). Skin normal color, intact/dry before, during, after tmt. Skin check after 3 min and at end of session. PT-OP-T Assessment and Plan Start: 04/28/23 10:41 Freq: Status: Active Protocol: Document 08/13/23 11:17 NM (Rec: 08/13/23 12:16 NM [id number]) Physical Therapy Assessment Goals Seven Impairment gait Impairment Unable to complete 6 MWT at IE Short Term Goal (STG) Pt will be able to complete a 6 MWT using LRAD in order to demo improved gait mechanics and activity tolerance for community ambulation. 05/30/23: 798 ft with FWW STG Duration 6 weeks MET Shelter Goal (LTG) Pt will improve 6 MWT distance by at least 100 ft using LRAD in order to demo improved gait mechanics and activity tolerance for community ambulation. 07/14/23: 646 ft with spc, 2 standing rest breaks 08/13/23: 588 ft with spc, reports feels more stiff LTG Duration 12 weeks PROGRESSING Six Impairment function Impairment LEFS Short Term Goal (STG) Pt will improve LEFS score by at least 9 points (MCID) in order to demo improved activity tolerance and strength. 05/30/23: 53 STG Duration 6 weeks MET Farm Mechanic Goal (LTG) Pt will improve LEFS score by at least 18 points (2 MCID) in order to demo improved activity tolerance and strength. 05/30/23: 5380 LTG Duration 12 weeks MET Five Impairment Balance, function Impairment TUG 41.5 sec with FWW Short Term Goal (STG) Pt will decrease TUG score time to at least 30 seconds or less using LRAD in order to demo improved balance during gait and transfers, to decrease fall risk. 07/04/23: 18.4 sec 05/30/23: 21 sec STG Duration 6 weeks MET Shelter Goal (LTG) Pt will decrease TUG score time to at least 15 seconds or less using LRAD in order to demo improved balance during gait and transfers, to decrease fall risk. 08/13/23: 18 sec, 17 sec, 16 sec 07/14/23: 16 sec FWW, 18 sec spc 07/04/23: 18.4 sec LTG Duration 12 weeks PROGRESSING Four Impairment strength Impairment Knee flex 07/28 Short Term Goal (STG) Pt will improve L knee flex strength to at least 4-/5 in order to perform stairs and for propulsion during gait. 05/30/23: 4/5 knee flex STG Duration 6 weeks MET Shelter Goal (LTG) Pt will improve L knee flex strength to at least 4+/5 in order to perform stairs and for propulsion during gait. 08/13/23: 4+/5 knee flexion 07/14/23, 07/04/23: 4/5 knee flex MMT LTG Duration 12 weeks MET Three Impairment Strength Impairment Knee ext 3/5 Short Term Goal (STG) Pt will improve L knee ext strength to at least 4-/5 in order to demo improved quad control for stability and TKE for gait. 05/30/23: 4-/5 MMT STG Duration 6 weeks MET Shelter Goal (LTG) Pt will improve L knee ext strength to at least 4+/5 in order to demo improved quad control for stability and TKE for gait. 08/13/23: 4/5 knee extension 07/14/23, 07/04/24: 4/5 knee ext MMT; functionally limited during step up, squat LTG Duration 12 weeks PROGRESSING Two Impairment ROM Impairment Knee ext 10 deg AROM (lacking) Short Term Goal (STG) Pt will improve L knee ext to at least 5 deg AROM in order to reach terminal knee extension during gait and improve knee stability during stairs/gait. 05/30/23: -5 deg knee ext but demos decreased quad activation STG Duration 6 weeks MET Shelter Goal (LTG) Pt will improve L knee ext to at least 1 deg in order to reach terminal knee extension during gait and improve knee stabiltiy during stairs/gait. 08/13/23: 0 deg extension 07/14/23: lacking 2 deg ext with quad set, heel elevated 07/04/23: 3 with quad set 06/26/23: 1 deg with quad set, heel elevated due to calf LTG Duration 12 weeks MET One Impairment ROM Impairment Knee flex 80 deg AROM Short Term Goal (STG) Pt will improve L knee flex to at least 100 deg AROM in order to demo improved knee flex ROM for stairs and gait. 06/16/23: 115 deg flex AROM 05/30/23: 110 deg flex AROM STG Duration 6 weeks MET Shelter Goal (LTG) Pt will improve L knee flex to > 115 deg AROM in order to demo improved knee flex ROM for stairs, gait, and to be comparable to RLE. 08/13/23: 116 deg knee flexion 07/04/23: 115 AROM MET; updated to > 115 deg 06/26/23: MET- 115 deg AROM pre- mob 118 post-mob LTG Duration 12 weeks MET; goal updated Progress Towards Goals Progress Towards Goals Progressing Toward Goals,Slow Progress due to Activity Tolerance,Slow Progress due to Attendance Issues Assessment Summary Assessment Pt tolerated treatment well but continues to be limited by poor activity tolerance. Pt has not been able to attend many PT sessions, so did not make as much progress toward goals since last PN. Continued with gait training using spc. Pt with improved sequencing with spc during 6MWT, but decreased distance. Requires cues for spc placement closer to body and for gait mechanics as pt continues to limit quad use during gait. Added hip abduction in sitting and increased resistance with side steps in order improve glute medius strength for increased stability in gait and stairs. Pt continues to lack glute and quad strength needed for step up onto 6 step, relying extensively on UE support to assist onto step. Pt is now 3.5 months post L TKA. Pt is now using spc and 4ww for balance, similar to pre TKA. However, she continues to rely extensively on UE for support due to decrease quad and glute strength. Pt is progressing toward goals related to balance, gait, and strength. Her L knee extension is full and R knee flexion AROM is now 116 deg. She is progressing with 6 MWT distance and TUG time, but has not met either goal. However, demos improvements. Pt would benefit from skilled PT for L knee strength and mobility, in addition to gait training in order to improve activity tolerance. Physical Therapy Plan Frequency and Duration Frequency of Treatment 2x/Week Duration of treatment (weeks) 8 Plan of Care Start Date 07/14/23 Plan of Care End Date 09/12/23 Therapeutic Interventions Therapeutic Interventions Aquatic Therapy,Balance Training,Gait Training,Home Exercise Program,Joint Mobilizations,Manual Therapy, Neuromuscular Re-education, Patient/Caregiver Education, Self-Care/Home Management,Soft Tissue Mobilization,Taping, Therapeutic Activities, Therapeutic Exercises Modalities Cold Pack/Ice Massage,Electric Stimulation,Hot Packs, Iontophoresis,Ultrasound, Vasopneumatic Devices Next Visit Focus/Plan Next Note Type Treatment Note Next Visit Plan Next session: gait training with cane, continue 4-6 step up, leg press, strengthening hip abd/glutes/quad with band. Balance training. Initiate knee/ankle mobility on step for gain self AAROM L. Hurdles with SPC vs //bar. Manual: soft tissue, no scar mgmt yet, gentle PROM with flex/ext
--- NOTE | 2023-08-18 16:06 | PT.OTN ---
Current Diagnoses Unilateral primary osteoarthritis, left knee (08/18/23) Physical Therapy Treatment Note PT-OP-A Visit Information Start: 04/28/23 10:41 Freq: Status: Active Protocol: Document 08/18/23 12:59 NM (Rec: 08/18/23 13:45 NM [id number]) Out-Patient Physical Therapy Visit Information Visit Information Visit Type Treatment Note Visit Note DOS: 04/18/23 Visit Start Time 13:00 Visit Stop Time 13:43 Visit Number 23 Evaluation Information Evaluation Date 04/28/23 Precautions Precautions Post-op 04/18/23 (TKA) Fall risk PT-OP-B Current Condition Start: 04/28/23 10:41 Freq: Status: Active Protocol: Document 04/28/23 10:42 NM (Rec: 04/28/23 11:40 NM [id number]) Current Condition History of Current Condition Onset Date 04/18/23 Current Complaints pain, swelling, sleep History of Current Condition Pt presents to clinic with FWW s/p L TKA on 04/19. She is seeing Dr. Patton for her knee. Currently, pt still has her post-op dressings still on and is WBAT with a FWW. Pt has B knee OA, which led to the replacement. She had no pre-op PT. Prior to surgery, she was able to ambulate up to 1/4 mi due to pain, which is a decrease from her baseline which was 1 mi. She is planning on having the R knee replaced in a few months. Pt has steps leading up to her home which is covered by a ramp. She used a FWW for gait prior to surgery due to feeling like she had poor balance; she also has a spc that she uses occasional (not since surgery). Pt reports compliance with HEP from hospital, performing exercises 1-2x/day. She does report some tingling in her LLE down to her foot, but this was occuring prior to her TKA. Her main compliants are pain, weakness, swelling, stiffness, and poor sleep since her surgery. Future Testing and Treatments Planned Follow up 04/[address] Patton Treatment Goals Patient/Caregiver Goals Decrease pain, improve knee motion and strength, be able to sleep without discomfort Prior Functional Status Baseline Function- ADL's Independent Baseline Function- Mobility Independent Baseline Function- Gait FWW or spc for balance; up to 1/4 mi for gait distance Baseline Function- Recreation/Hobbies Gardening (hands and knees) Baseline Function- Other Stairs (no issue) Current Functional Impairments (Reported) Functional Limitations- Mobility/Gait No stairs due to limited motion and pain, no more than household ambulation Functional Limitations- Recreation/ Unable to garden Hobbies PT-OP-C Subjective Start: 04/28/23 10:41 Freq: Status: Active Protocol: Document 08/18/23 12:59 NM (Rec: 08/18/23 13:45 NM [id number]) OP-PT Subjective Patient Comments Patient Comments Pt reports that she feels stiff today, has L quad discomfort PT-OP-D Balance Start: 04/28/23 10:41 Freq: Status: Active Protocol: Document 04/28/23 10:42 NM (Rec: 04/28/23 11:56 NM [id number]) OP-PT Balance Assessment Sitting Balance Static Sitting Balance Ability Normal Dynamic Sitting Balance Ability Normal Standing Balance Static Standing Balance Ability Good Dynamic Standing Balance Ability Fair Device Used FWW Standing Balance Comments Occasional CGA to steady during gait, changing JUVENCIO Denise Fall Scale Copyright Permission PT-OP-E Functional Tests Start: 04/28/23 10:41 Freq: Status: Active Protocol: Document 04/28/23 10:42 NM (Rec: 04/28/23 11:40 NM [id number]) Functional Tests Timed Up and Go (TUG) Score 41.5 sec Comments FWW, SBA PT-OP-F Manual Assessment Start: 04/28/23 10:41 Freq: Status: Active Protocol: Document 04/28/23 10:42 NM (Rec: 04/28/23 11:40 NM [id number]) Manual Assessments Soft Tissue Assessment Soft Tissue Mobility Assessment Soft tissue restrictions of L hamstring. Edema in L ankle, knee and calf. Will need scar mobilization to prevent adhesions once scar is closed and healed. Joint Mobility Assessment Joint Mobility Assessment Empty end feel with PROM, limited mobility PT-OP-G Mobility & Gait Start: 04/28/23 10:41 Freq: Status: Active Protocol: Document 04/28/23 10:42 NM (Rec: 04/28/23 11:40 NM [id number]) OP Gait Assessment Gait Gait Assistance Required: Standby Assistance Distance (Feet) 200 Able to Maintain Weight Bearing Status Yes During Gait Assistive Devices Assistive Device Gait Belt,Straight Cane,Front Wheeled Walker Gait Deviations General Gait Pattern Antalgic,Decreased Stride Length,Step-to Gait Factors Limiting Gait Function Factors Limiting Gait Function Decreased Activity Tolerance, Decreased Strength,Limited Range of Motion,Pain,Poor Balance Comments Gait Comments Primarily uses FWW for gait. Began using FWW for gait prior in Jun 2022 prior to surgery due to poor balance. PT-OP-H Neuro Start: 04/28/23 10:41 Freq: Status: Active Protocol: Document 04/28/23 10:42 NM (Rec: 04/28/23 11:40 NM [id number]) Sensation Evaluation Gross Sensation Gross Sensation WNL Comments Summary Comments LLE intact to light touch sensation in all dermatomes. PT-OP-J Posture/Palpation/Skin Start: 04/28/23 10:41 Freq: Status: Active Protocol: Document 04/28/23 10:42 NM (Rec: 04/28/23 11:40 NM [id number]) Posture Evaluation Position Standing Evaluation View Posterior Pelvis Posture Anteriorly Tilted Weight Distribution Weight Shifted Right,Decreased Wt.Bear on (L) Hip Posture (L) Externally Rotated Knee Posture (L) Genu Valgus,(R) Genu Valgus Patellar Posture (R) Superior Palpation Assessment Location L knee Palpation Location posterior knee, posterior calf , lateral and medial knee Palpation Findings Edema,Soft Tissue Tightness, Tenderness Palpation Details Tenderness and edema along posterior knee and calf. No sign of DVT Tenderness and edema along medial and lateral knee near patella, femoral condyles near joint line Skin Assessment Edema Assessment L ankle Edema Type Non-Pitting Edema Degree 2+ Edema Appearance Discolored,Puffy Circumference Measurement L knee Location 5 cm above patella (60cm), sub patella (51 cm), 10 cm below patella (49 cm) Comments L malleoli (27 cm) with excess on lateral side, at patella ( 56.5 cm) Incisional Assessment Incision Appearance/Comments Bandage is CDI. Still wrapped so could not formally assess incision. No signs of infection around bandage. Will assess further once bandage removed PT-OP-K Range of Motion Start: 04/28/23 10:41 Freq: Status: Active Protocol: Document 08/13/23 11:17 NM (Rec: 08/13/23 12:16 NM [id number]) Knee Goniometric Range of Motion Knee Left Knee ROM WFL No Patient Position Supine Flexion Active (degrees) 115 Flexion Passive (degrees) 115 Extension Active (degrees) 2 Extension Passive (degrees) 1 Comments 08/13/23: 116 flexion, 0 deg extension 07/14/23: 115 deg flex, 2 deg ext lacking 07/04/23: lacks 3 deg ext with active quad contraction; 115 AROM knee flex 05/30/23: 110 deg flex AROM, 5 deg ext AROM 05/30/23: lacking 5 deg ext with active quad contraction @IE: flex 80 deg ext -10 deg PT-OP-M Strength Start: 04/28/23 10:41 Freq: Status: Active Protocol: Document 08/13/23 11:17 NM (Rec: 08/13/23 12:16 NM [id number]) Hip Strength Hip Manual Muscle Testing Left Flexion (L2) 3+ Fair+ Abduction 3+ Fair+ External Rotation 3+ Fair+ Internal Rotation 3+ Fair+ Comments Assessed in sitting due to knee pain 08/13/23: 4/5 for all 07/14/23, 07/04/23: 4-/5 for all motions, no pain Knee Strength Knee Manual Muscle Testing Left Flexion (S2) 4 Good Extension (L3) 4 Good Comments 08/13/23: 4+/5 for flex, 4/5 ext 07/04/23: 4/5, no pain with resisted motion 05/30/23: 4/5 flex, 4-/5 ext @ IE: flex and ext 3/5 PT-OP-Q Treatments Start: 04/28/23 10:41 Freq: Status: Active Protocol: Document 08/18/23 12:59 NM (Rec: 08/18/23 13:45 NM [id number]) Cardio Equipment Recumbent Bicycle Duration (Minutes) 3 Resistance 0 Seat Position 2 Other warm up to decrease stiffness; demos no hip ER compensation Gym Equipment Shuttle Recovery Bilateral Squats Details B squats Resistance 75# (2 navy) Shuttle Recovery Platform Stable Reps/Time 2x15 Therapeutic Exercises Sitting Exercises LAQ Sitting Exercise Name LAQ Side left Resistance 4# ankle weight Equipment Used sitting Reps/Minutes 2x10 Comments good TKE, following manual Standing Exercises side step up Standing Exercise Name 4 step Side left Equipment Used 1 flat hand support on rail Reps/Minutes 2x5 Comments cued no opp hip drop, strong glute/quad, min RLE assist Knee flexion mobilization/stretch Standing Exercise Name LLE elevated on 6 step, then fwd into knee flex stretch Side left Equipment Used 2nd step, B hand rail use Reps/Minutes 1x10 w/ brief hold Step up Standing Exercise Name 6 steps Side left Equipment Used 1 rail use, flat hand Reps/Minutes 1x5, 1x10, 1x10 Comments cued for hip hinge, strong glute/quad, DF on RLE, full step on LLE Other Exercises Sit to stand Other Exercise Name eccentric taps Side bilateral Equipment Used 4WW in front for stability prn Reps/Minutes 2x12 Comments cued for hip hinge Manual Therapy Treatment Soft Tissue Mobilization L knee Body Location quad, hip flexors Mobilization Type Instrument Assisted,Rolling Intensity/Depth Moderate Body Position Sidelying Comments To decrease tenderness along L quad, hip flexors. Reports decrease in tightness, tenderness with rolling. Manual Techniques PROM Type L knee flexion Body Position Sidelying Reps/Duration 4x30 Comments reports relief with stretch Self-Care/Home Management Treatment Education Patient Education Home Exercise Program Caregiver Education Educate on how to perform sidelying quad stretch Other Education HEP: chair taps, step up with rail for balance, sidelying quad stretch. Educated on L quad: soft tissue mobilization , stretching, and strengthening progression for pain reduction and to improve strneght for mechanics PT-OP-R Modalities Start: 05/30/23 15:01 Freq: Status: Active Protocol: Document 05/30/23 13:54 NM (Rec: 05/30/23 15:07 NM [id number]) Electric Stimulation Electric Stimulation Biphasic Body Location L quad Duration (Minutes) 10 Intensity 18 Frequency 50 Pulse Width 300 Contraction Type Normal Ramp 1.0 Comments 5/5 cycle due to time to maximize contractions Performed in sitting (LAQ), supine (quad sets, SAQ). Skin normal color, intact/dry before, during, after tmt. Skin check after 3 min and at end of session. PT-OP-T Assessment and Plan Start: 04/28/23 10:41 Freq: Status: Active Protocol: Document 08/18/23 12:59 NM (Rec: 08/18/23 13:45 NM [id number]) Physical Therapy Assessment Goals Seven Impairment gait Impairment Unable to complete 6 MWT at IE Short Term Goal (STG) Pt will be able to complete a 6 MWT using LRAD in order to demo improved gait mechanics and activity tolerance for community ambulation. 05/30/23: 798 ft with FWW STG Duration 6 weeks MET Engine Lathe Tender Goal (LTG) Pt will improve 6 MWT distance by at least 100 ft using LRAD in order to demo improved gait mechanics and activity tolerance for community ambulation. 07/14/23: 646 ft with spc, 2 standing rest breaks 08/13/23: 588 ft with spc, reports feels more stiff LTG Duration 12 weeks PROGRESSING Six Impairment function Impairment LEFS Short Term Goal (STG) Pt will improve LEFS score by at least 9 points (MCID) in order to demo improved activity tolerance and strength. 05/30/23: STG Duration 6 weeks MET Half-Way Goal (LTG) Pt will improve LEFS score by at least 18 points (2 MCID) in order to demo improved activity tolerance and strength. 05/30/23: 53 LTG Duration 12 weeks MET Five Impairment Balance, function Impairment TUG 41.5 sec with FWW Short Term Goal (STG) Pt will decrease TUG score time to at least 30 seconds or less using LRAD in order to demo improved balance during gait and transfers, to decrease fall risk. 07/04/23: 18.4 sec 05/30/23: 21 sec STG Duration 6 weeks MET Engine Lathe Tender Goal (LTG) Pt will decrease TUG score time to at least 15 seconds or less using LRAD in order to demo improved balance during gait and transfers, to decrease fall risk. 08/13/23: 18 sec, 17 sec, 16 sec 07/14/23: 16 sec FWW, 18 sec spc 07/04/23: 18.4 sec LTG Duration 12 weeks PROGRESSING Four Impairment strength Impairment Knee flex 3/5 Short Term Goal (STG) Pt will improve L knee flex strength to at least 4-/5 in order to perform stairs and for propulsion during gait. 05/30/23: 4/5 knee flex STG Duration 6 weeks MET Engine Lathe Tender Goal (LTG) Pt will improve L knee flex strength to at least 4+/5 in order to perform stairs and for propulsion during gait. 08/13/23: 4+/5 knee flexion 07/14/23, 07/04/23: 4/5 knee flex MMT LTG Duration 12 weeks MET Three Impairment Strength Impairment Knee ext 3/5 Short Term Goal (STG) Pt will improve L knee ext strength to at least 4-/5 in order to demo improved quad control for stability and TKE for gait. 05/30/23: 4-/5 MMT STG Duration 6 weeks MET Engine Lathe Tender Goal (LTG) Pt will improve L knee ext strength to at least 4+/5 in order to demo improved quad control for stability and TKE for gait. 08/13/23: 4/5 knee extension 07/14/23, 07/04/24: 4/5 knee ext MMT; functionally limited during step up, squat LTG Duration 12 weeks PROGRESSING Two Impairment ROM Impairment Knee ext 10 deg AROM (lacking) Short Term Goal (STG) Pt will improve L knee ext to at least 5 deg AROM in order to reach terminal knee extension during gait and improve knee stability during stairs/gait. 05/30/23: -5 deg knee ext but demos decreased quad activation STG Duration 6 weeks MET Engine Lathe Tender Goal (LTG) Pt will improve L knee ext to at least 1 deg in order to reach terminal knee extension during gait and improve knee stabiltiy during stairs/gait. 08/13/23: 0 deg extension 07/14/23: lacking 2 deg ext with quad set, heel elevated 07/04/23: 3 with quad set 06/26/23: 1 deg with quad set, heel elevated due to calf LTG Duration 12 weeks MET One Impairment ROM Impairment Knee flex 80 deg AROM Short Term Goal (STG) Pt will improve L knee flex to at least 100 deg AROM in order to demo improved knee flex ROM for stairs and gait. 06/16/23: 115 deg flex AROM 05/30/23: 110 deg flex AROM STG Duration 6 weeks MET Engine Lathe Tender Goal (LTG) Pt will improve L knee flex to > 115 deg AROM in order to demo improved knee flex ROM for stairs, gait, and to be comparable to RLE. 08/13/23: 116 deg knee flexion 07/04/23: 115 AROM MET; updated to > 115 deg 06/26/23: MET- 115 deg AROM pre- mob 118 post-mob LTG Duration 12 weeks MET; goal updated Assessment Summary Assessment Pt tolerated treatment well. She continues to have L quad discomfort and presents with increased stiffness. Manual treatment to decrease L quad restrictions; pain reduction with soft tissue mobilization, stretching, and strengthening . Pt reports significant improvement in symptoms post manual treatment. Pt progressed both resistance and number of reps on leg press for B squat. Pt demos improved fwd step up ontp 6 step today with cueing for hip hinge and ankle dorsiflexion, requiring less assist from UE and RLE. She continues to demonstrate quad and glute weakness with trunk compensations; however, pt demos improvement in stability and control with hip hinge. Initiated lateral step up on 4 for increased hip abduction strengthening and knee stabilization within new plane . Pt is using spc more frequently, but continues to rely on 4WW for gait outside of household ambulation. Pt would benefit from skilled PT for progressive BLE hip/knee strengthening, gait and balance training in order to improve activity tolerance and QOL. Physical Therapy Plan Frequency and Duration Frequency of Treatment 2x/Week Duration of treatment (weeks) 8 Plan of Care Start Date 07/14/23 Plan of Care End Date 09/12/23 Therapeutic Interventions Therapeutic Interventions Aquatic Therapy,Balance Training,Gait Training,Home Exercise Program,Joint Mobilizations,Manual Therapy, Neuromuscular Re-education, Patient/Caregiver Education, Self-Care/Home Management,Soft Tissue Mobilization,Taping, Therapeutic Activities, Therapeutic Exercises Modalities Cold Pack/Ice Massage,Electric Stimulation,Hot Packs, Iontophoresis,Ultrasound, Vasopneumatic Devices Next Visit Focus/Plan Next Note Type Treatment Note Next Visit Plan Next session: gait training with cane, continue 6 step up with hinge and lateral, leg press, strengthening hip abd/ glutes/quad with band. Balance training. Initiate knee/ankle mobility on step for gain self AAROM L. Hurdles with SPC vs //bar. Manual: soft tissue of quad
--- NOTE | 2023-08-20 16:36 | PT.OTN ---
Current Diagnoses Unilateral primary osteoarthritis, left knee (08/20/23) Physical Therapy Treatment Note PT-OP-A Visit Information Start: 04/28/23 10:41 Freq: Status: Active Protocol: Document 08/20/23 12:53 AB (Rec: 08/20/23 14:32 AB [id number]) Out-Patient Physical Therapy Visit Information Visit Information Visit Type Treatment Note Visit Note DOS: 04/18/23 Visit Start Time 13:48 Visit Stop Time 14:30 Visit Number 24 Number of SPRING INTERN Visits 1 Precautions Precautions Post-op 04/18/23 (TKA) Fall risk PT-OP-B Current Condition Start: 04/28/23 10:41 Freq: Status: Active Protocol: Document 04/28/23 10:42 NM (Rec: 04/28/23 11:40 NM [id number]) Current Condition History of Current Condition Onset Date 04/18/23 Current Complaints pain, swelling, sleep History of Current Condition Pt presents to clinic with FWW s/p L TKA on 04/19. She is seeing Dr. Patton for her knee. Currently, pt still has her post-op dressings still on and is WBAT with a FWW. Pt has B knee OA, which led to the replacement. She had no pre-op PT. Prior to surgery, she was able to ambulate up to 1/4 mi due to pain, which is a decrease from her baseline which was 1 mi. She is planning on having the R knee replaced in a few months. Pt has steps leading up to her home which is covered by a ramp. She used a FWW for gait prior to surgery due to feeling like she had poor balance; she also has a spc that she uses occasional (not since surgery). Pt reports compliance with HEP from hospital, performing exercises 1-2x/day. She does report some tingling in her LLE down to her foot, but this was occuring prior to her TKA. Her main compliants are pain, weakness, swelling, stiffness, and poor sleep since her surgery. Future Testing and Treatments Planned Follow up 04/[address] Patton Treatment Goals Patient/Caregiver Goals Decrease pain, improve knee motion and strength, be able to sleep without discomfort Prior Functional Status Baseline Function- ADL's Independent Baseline Function- Mobility Independent Baseline Function- Gait FWW or spc for balance; up to 1/4 mi for gait distance Baseline Function- Recreation/Hobbies Gardening (hands and knees) Baseline Function- Other Stairs (no issue) Current Functional Impairments (Reported) Functional Limitations- Mobility/Gait No stairs due to limited motion and pain, no more than household ambulation Functional Limitations- Recreation/ Unable to garden Hobbies PT-OP-C Subjective Start: 04/28/23 10:41 Freq: Status: Active Protocol: Document 08/20/23 12:53 AB (Rec: 08/20/23 14:32 AB [id number]) OP-PT Subjective Patient Comments Patient Comments Patient reports she is pretty much the same, reports the exercises are going ok. SLS 2 seconds start of session left LE. PT-OP-D Balance Start: 04/28/23 10:41 Freq: Status: Active Protocol: Document 04/28/23 10:42 NM (Rec: 04/28/23 11:56 NM [id number]) OP-PT Balance Assessment Sitting Balance Static Sitting Balance Ability Normal Dynamic Sitting Balance Ability Normal Standing Balance Static Standing Balance Ability Good Dynamic Standing Balance Ability Fair Device Used FWW Standing Balance Comments Occasional CGA to steady during gait, changing JUVENCIO Denise Fall Scale Copyright Permission PT-OP-E Functional Tests Start: 04/28/23 10:41 Freq: Status: Active Protocol: Document 04/28/23 10:42 NM (Rec: 04/28/23 11:40 NM [id number]) Functional Tests Timed Up and Go (TUG) Score 41.5 sec Comments FWW, SBA PT-OP-F Manual Assessment Start: 04/28/23 10:41 Freq: Status: Active Protocol: Document 04/28/23 10:42 NM (Rec: 04/28/23 11:40 NM [id number]) Manual Assessments Soft Tissue Assessment Soft Tissue Mobility Assessment Soft tissue restrictions of L hamstring. Edema in L ankle, knee and calf. Will need scar mobilization to prevent adhesions once scar is closed and healed. Joint Mobility Assessment Joint Mobility Assessment Empty end feel with PROM, limited mobility PT-OP-G Mobility & Gait Start: 04/28/23 10:41 Freq: Status: Active Protocol: Document 04/28/23 10:42 NM (Rec: 04/28/23 11:40 NM [id number]) OP Gait Assessment Gait Gait Assistance Required: Standby Assistance Distance (Feet) 200 Able to Maintain Weight Bearing Status Yes During Gait Assistive Devices Assistive Device Gait Belt,Straight Cane,Front Wheeled Walker Gait Deviations General Gait Pattern Antalgic,Decreased Stride Length,Step-to Gait Factors Limiting Gait Function Factors Limiting Gait Function Decreased Activity Tolerance, Decreased Strength,Limited Range of Motion,Pain,Poor Balance Comments Gait Comments Primarily uses FWW for gait. Began using FWW for gait prior in Jun 2022 prior to surgery due to poor balance. PT-OP-H Neuro Start: 04/28/23 10:41 Freq: Status: Active Protocol: Document 04/28/23 10:42 NM (Rec: 04/28/23 11:40 NM [id number]) Sensation Evaluation Gross Sensation Gross Sensation WNL Comments Summary Comments LLE intact to light touch sensation in all dermatomes. PT-OP-J Posture/Palpation/Skin Start: 04/28/23 10:41 Freq: Status: Active Protocol: Document 04/28/23 10:42 NM (Rec: 04/28/23 11:40 NM [id number]) Posture Evaluation Position Standing Evaluation View Posterior Pelvis Posture Anteriorly Tilted Weight Distribution Weight Shifted Right,Decreased Wt.Bear on (L) Hip Posture (L) Externally Rotated Knee Posture (L) Genu Valgus,(R) Genu Valgus Patellar Posture (R) Superior Palpation Assessment Location L knee Palpation Location posterior knee, posterior calf , lateral and medial knee Palpation Findings Edema,Soft Tissue Tightness, Tenderness Palpation Details Tenderness and edema along posterior knee and calf. No sign of DVT Tenderness and edema along medial and lateral knee near patella, femoral condyles near joint line Skin Assessment Edema Assessment L ankle Edema Type Non-Pitting Edema Degree 2+ Edema Appearance Discolored,Puffy Circumference Measurement L knee Location 5 cm above patella (60cm), sub patella (51 cm), 10 cm below patella (49 cm) Comments L malleoli (27 cm) with excess on lateral side, at patella ( 56.5 cm) Incisional Assessment Incision Appearance/Comments Bandage is CDI. Still wrapped so could not formally assess incision. No signs of infection around bandage. Will assess further once bandage removed PT-OP-K Range of Motion Start: 04/28/23 10:41 Freq: Status: Active Protocol: Document 08/13/23 11:17 NM (Rec: 08/13/23 12:16 NM [id number]) Knee Goniometric Range of Motion Knee Left Knee ROM WFL No Patient Position Supine Flexion Active (degrees) 115 Flexion Passive (degrees) 115 Extension Active (degrees) 2 Extension Passive (degrees) 1 Comments 08/13/23: 116 flexion, 0 deg extension 07/14/23: 115 deg flex, 2 deg ext lacking 07/04/23: lacks 3 deg ext with active quad contraction; 115 AROM knee flex 05/30/23: 110 deg flex AROM, 5 deg ext AROM 05/30/23: lacking 5 deg ext with active quad contraction @IE: flex 80 deg ext -10 deg PT-OP-M Strength Start: 04/28/23 10:41 Freq: Status: Active Protocol: Document 08/13/23 11:17 NM (Rec: 08/13/23 12:16 NM [id number]) Hip Strength Hip Manual Muscle Testing Left Flexion (L2) 3+ Fair+ Abduction 3+ Fair+ External Rotation 3+ Fair+ Internal Rotation 3+ Fair+ Comments Assessed in sitting due to knee pain 08/13/23: 4/5 for all 07/14/23, 07/04/23: 4-/5 for all motions, no pain Knee Strength Knee Manual Muscle Testing Left Flexion (S2) 4 Good Extension (L3) 4 Good Comments 08/13/23: 4+/5 for flex, 4/5 ext 07/04/23: 4/5, no pain with resisted motion 05/30/23: 4/5 flex, 4-/5 ext @ IE: flex and ext 3/5 PT-OP-Q Treatments Start: 04/28/23 10:41 Freq: Status: Active Protocol: Document 08/20/23 12:53 AB (Rec: 08/20/23 14:32 AB [id number]) Therapeutic Exercises Supine Exercises long arc quad Side left Reps/Minutes 2X10 hamstring stretch with strap Side left Reps/Minutes 60 seconds X 2 Comments verbal cues knee flexion with feet on ball Reps/Minutes 2 min Comments post manual therapy Sidelying Exercises Hip abduction Sidelying Exercise Name reviewed HEP Side left Reps/Minutes 2x8 Comments cues to prevent bwd trunk/hip rotation; hip IR Clams Sidelying Exercise Name to begin hip strengthening with short lever arm Side bilateral Reps/Minutes 10x1 Comments cues for neutral hip placement , no rotation Sitting Exercises hip abduction Sitting Exercise Name 1. seated, 2. isometric Side bilateral Resistance lvl 3 [place] [facility] Equipment Used feet flat Reps/Minutes 1. 2x10, 2. 1x60 Comments Pt ed rationale of one minute hold for activation LAQ Side left Reps/Minutes 2X10 Manual Therapy Treatment Soft Tissue Mobilization Scar mobilization Body Location scar Mobilization Type Cross-Friction,Other Intensity/Depth Moderate Body Position Hooklying Comments good feedback but sensitiving multidirectional L knee Body Location quad for swelling, hip flexors Mobilization Type Cross-Friction,Rolling Intensity/Depth Moderate Body Position Sidelying Neuro Re-Education Treatment Balance Activities SLS left LE Surface floor Reps/Duration X6 Comments CGA Self-Care/Home Management Treatment Activities Self-Care/Home Management Activities calf stretch with strap seated changed to hamstring stretch hooklying with strap to allow for calf and hamstring stretch in one stretch. PT-OP-R Modalities Start: 05/30/23 15:01 Freq: Status: Active Protocol: Document 05/30/23 13:54 NM (Rec: 05/30/23 15:07 NM [id number]) Electric Stimulation Electric Stimulation Biphasic Body Location L quad Duration (Minutes) 10 Intensity 18 Frequency 50 Pulse Width 300 Contraction Type Normal Ramp 1.0 Comments 5/5 cycle due to time to maximize contractions Performed in sitting (LAQ), supine (quad sets, SAQ). Skin normal color, intact/dry before, during, after tmt. Skin check after 3 min and at end of session. PT-OP-T Assessment and Plan Start: 04/28/23 10:41 Freq: Status: Active Protocol: Document 08/20/23 12:53 AB (Rec: 08/20/23 14:32 AB [id number]) Physical Therapy Assessment Goals Seven Impairment gait Impairment Unable to complete 6 MWT at IE Short Term Goal (STG) Pt will be able to complete a 6 MWT using LRAD in order to demo improved gait mechanics and activity tolerance for community ambulation. 05/30/23: 798 ft with FWW STG Duration 6 weeks MET Residential Goal (LTG) Pt will improve 6 MWT distance by at least 100 ft using LRAD in order to demo improved gait mechanics and activity tolerance for community ambulation. 07/14/23: 646 ft with spc, 2 standing rest breaks 08/13/23: 588 ft with spc, reports feels more stiff LTG Duration 12 weeks PROGRESSING Six Impairment function Impairment LEFS Short Term Goal (STG) Pt will improve LEFS score by at least 9 points (MCID) in order to demo improved activity tolerance and strength. 05/30/23: 5380 STG Duration 6 weeks MET Residential Goal (LTG) Pt will improve LEFS score by at least 18 points (2 MCID) in order to demo improved activity tolerance and strength. 05/30/23: 53 LTG Duration 12 weeks MET Five Impairment Balance, function Impairment TUG 41.5 sec with FWW Short Term Goal (STG) Pt will decrease TUG score time to at least 30 seconds or less using LRAD in order to demo improved balance during gait and transfers, to decrease fall risk. 07/04/23: 18.4 sec 05/30/23: 21 sec STG Duration 6 weeks MET Residential Goal (LTG) Pt will decrease TUG score time to at least 15 seconds or less using LRAD in order to demo improved balance during gait and transfers, to decrease fall risk. 08/13/23: 18 sec, 17 sec, 16 sec 07/14/23: 16 sec FWW, 18 sec spc 07/04/23: 18.4 sec LTG Duration 12 weeks PROGRESSING Four Impairment strength Impairment Knee flex 3 Short Term Goal (STG) Pt will improve L knee flex strength to at least 4-/5 in order to perform stairs and for propulsion during gait. 05/30/23: 4/5 knee flex STG Duration 6 weeks MET Superintendent Goal (LTG) Pt will improve L knee flex strength to at least 4+/5 in order to perform stairs and for propulsion during gait. 08/13/23: 4+/5 knee flexion 07/14/23, 07/04/23: 4/5 knee flex MMT LTG Duration 12 weeks MET Three Impairment Strength Impairment Knee ext 3 Short Term Goal (STG) Pt will improve L knee ext strength to at least 4-/5 in order to demo improved quad control for stability and TKE for gait. 05/30/23: 4-/5 MMT STG Duration 6 weeks MET Residential Goal (LTG) Pt will improve L knee ext strength to at least 4+/5 in order to demo improved quad control for stability and TKE for gait. 08/13/23: 4/5 knee extension 07/14/23, 07/04/24: 4/5 knee ext MMT; functionally limited during step up, squat LTG Duration 12 weeks PROGRESSING Two Impairment ROM Impairment Knee ext 10 deg AROM (lacking) Short Term Goal (STG) Pt will improve L knee ext to at least 5 deg AROM in order to reach terminal knee extension during gait and improve knee stability during stairs/gait. 05/30/23: -5 deg knee ext but demos decreased quad activation STG Duration 6 weeks MET Superintendent Goal (LTG) Pt will improve L knee ext to at least 1 deg in order to reach terminal knee extension during gait and improve knee stabiltiy during stairs/gait. 08/13/23: 0 deg extension 07/14/23: lacking 2 deg ext with quad set, heel elevated 07/04/23: 3 with quad set 06/26/23: 1 deg with quad set, heel elevated due to calf LTG Duration 12 weeks MET One Impairment ROM Impairment Knee flex 80 deg AROM Short Term Goal (STG) Pt will improve L knee flex to at least 100 deg AROM in order to demo improved knee flex ROM for stairs and gait. 06/16/23: 115 deg flex AROM 05/30/23: 110 deg flex AROM STG Duration 6 weeks MET Residential Goal (LTG) Pt will improve L knee flex to > 115 deg AROM in order to demo improved knee flex ROM for stairs, gait, and to be comparable to RLE. 08/13/23: 116 deg knee flexion 07/04/23: 115 AROM MET; updated to > 115 deg 06/26/23: MET- 115 deg AROM pre- mob 118 post-mob LTG Duration 12 weeks MET; goal updated Assessment Summary Assessment SLS left LE without UE use incresed to 4-5 seconds post manual therapy and exercise/ end of session. Patient with good return demonstration for exercises this session and comments she will make sure to perform the glute med activation daily. Physical Therapy Plan Frequency and Duration Frequency of Treatment 2x/Week Duration of treatment (weeks) 8 Plan of Care Start Date 07/14/23 Plan of Care End Date 09/12/23 Next Visit Focus/Plan Next Visit Plan Next session: gait training with cane, continue 6 step up with hinge and lateral, leg press, strengthening hip abd/ glutes/quad with band. Balance training. Initiate knee/ankle mobility on step for gain self DA Mojicas with SPC vs //bar. Manual: soft tissue of quad
--- NOTE | 2023-08-27 16:08 | PT.OTN ---
Current Diagnoses Unilateral primary osteoarthritis, left knee (08/27/23) Physical Therapy Treatment Note PT-OP-A Visit Information Start: 04/28/23 10:41 Freq: Status: Active Protocol: Document 08/27/23 13:00 NM (Rec: 08/27/23 13:47 NM [id number]) Out-Patient Physical Therapy Visit Information Visit Information Visit Type Treatment Note Visit Note DOS: 04/18/23 Visit Start Time 13:00 Visit Stop Time 13:40 Visit Number 25 PT-OP-B Current Condition Start: 04/28/23 10:41 Freq: Status: Active Protocol: Document 04/28/23 10:42 NM (Rec: 04/28/23 11:40 NM [id number]) Current Condition History of Current Condition Onset Date 04/18/23 Current Complaints pain, swelling, sleep History of Current Condition Pt presents to clinic with FWW s/p L TKA on 04/19. She is seeing Dr. Patton for her knee. Currently, pt still has her post-op dressings still on and is WBAT with a FWW. Pt has B knee OA, which led to the replacement. She had no pre-op PT. Prior to surgery, she was able to ambulate up to 1/4 mi due to pain, which is a decrease from her baseline which was 1 mi. She is planning on having the R knee replaced in a few months. Pt has steps leading up to her home which is covered by a ramp. She used a FWW for gait prior to surgery due to feeling like she had poor balance; she also has a spc that she uses occasional (not since surgery). Pt reports compliance with HEP from hospital, performing exercises 1-2x/day. She does report some tingling in her LLE down to her foot, but this was occuring prior to her TKA. Her main compliants are pain, weakness, swelling, stiffness, and poor sleep since her surgery. Future Testing and Treatments Planned Follow up 04/[address] Patton Treatment Goals Patient/Caregiver Goals Decrease pain, improve knee motion and strength, be able to sleep without discomfort Prior Functional Status Baseline Function- ADL's Independent Baseline Function- Mobility Independent Baseline Function- Gait FWW or spc for balance; up to 1/4 mi for gait distance Baseline Function- Recreation/Hobbies Gardening (hands and knees) Baseline Function- Other Stairs (no issue) Current Functional Impairments (Reported) Functional Limitations- Mobility/Gait No stairs due to limited motion and pain, no more than household ambulation Functional Limitations- Recreation/ Unable to garden Hobbies PT-OP-C Subjective Start: 04/28/23 10:41 Freq: Status: Active Protocol: Document 08/27/23 13:00 NM (Rec: 08/27/23 13:47 NM [id number]) OP-PT Subjective Patient Comments Patient Comments Pt reports that she is having a lot of L quad tenderness, soreness. It is impacting her gait, standing. She sees Dr. Patton on 09/07. PT-OP-D Balance Start: 04/28/23 10:41 Freq: Status: Active Protocol: Document 04/28/23 10:42 NM (Rec: 04/28/23 11:56 NM [id number]) OP-PT Balance Assessment Sitting Balance Static Sitting Balance Ability Normal Dynamic Sitting Balance Ability Normal Standing Balance Static Standing Balance Ability Good Dynamic Standing Balance Ability Fair Device Used FWW Standing Balance Comments Occasional CGA to steady during gait, changing JUVENCIO Denise Fall Scale Copyright Permission PT-OP-E Functional Tests Start: 04/28/23 10:41 Freq: Status: Active Protocol: Document 04/28/23 10:42 NM (Rec: 04/28/23 11:40 NM [id number]) Functional Tests Timed Up and Go (TUG) Score 41.5 sec Comments FWW, SBA PT-OP-F Manual Assessment Start: 04/28/23 10:41 Freq: Status: Active Protocol: Document 04/28/23 10:42 NM (Rec: 04/28/23 11:40 NM [id number]) Manual Assessments Soft Tissue Assessment Soft Tissue Mobility Assessment Soft tissue restrictions of L hamstring. Edema in L ankle, knee and calf. Will need scar mobilization to prevent adhesions once scar is closed and healed. Joint Mobility Assessment Joint Mobility Assessment Empty end feel with PROM, limited mobility PT-OP-G Mobility & Gait Start: 04/28/23 10:41 Freq: Status: Active Protocol: Document 04/28/23 10:42 NM (Rec: 04/28/23 11:40 NM [id number]) OP Gait Assessment Gait Gait Assistance Required: Standby Assistance Distance (Feet) 200 Able to Maintain Weight Bearing Status Yes During Gait Assistive Devices Assistive Device Gait Belt,Straight Cane,Front Wheeled Walker Gait Deviations General Gait Pattern Antalgic,Decreased Stride Length,Step-to Gait Factors Limiting Gait Function Factors Limiting Gait Function Decreased Activity Tolerance, Decreased Strength,Limited Range of Motion,Pain,Poor Balance Comments Gait Comments Primarily uses FWW for gait. Began using FWW for gait prior in Jun 2022 prior to surgery due to poor balance. PT-OP-H Neuro Start: 04/28/23 10:41 Freq: Status: Active Protocol: Document 04/28/23 10:42 NM (Rec: 04/28/23 11:40 NM [id number]) Sensation Evaluation Gross Sensation Gross Sensation WNL Comments Summary Comments LLE intact to light touch sensation in all dermatomes. PT-OP-J Posture/Palpation/Skin Start: 04/28/23 10:41 Freq: Status: Active Protocol: Document 04/28/23 10:42 NM (Rec: 04/28/23 11:40 NM [id number]) Posture Evaluation Position Standing Evaluation View Posterior Pelvis Posture Anteriorly Tilted Weight Distribution Weight Shifted Right,Decreased Wt.Bear on (L) Hip Posture (L) Externally Rotated Knee Posture (L) Genu Valgus,(R) Genu Valgus Patellar Posture (R) Superior Palpation Assessment Location L knee Palpation Location posterior knee, posterior calf , lateral and medial knee Palpation Findings Edema,Soft Tissue Tightness, Tenderness Palpation Details Tenderness and edema along posterior knee and calf. No sign of DVT Tenderness and edema along medial and lateral knee near patella, femoral condyles near joint line Skin Assessment Edema Assessment L ankle Edema Type Non-Pitting Edema Degree 2+ Edema Appearance Discolored,Puffy Circumference Measurement L knee Location 5 cm above patella (60cm), sub patella (51 cm), 10 cm below patella (49 cm) Comments L malleoli (27 cm) with excess on lateral side, at patella ( 56.5 cm) Incisional Assessment Incision Appearance/Comments Bandage is CDI. Still wrapped so could not formally assess incision. No signs of infection around bandage. Will assess further once bandage removed PT-OP-K Range of Motion Start: 04/28/23 10:41 Freq: Status: Active Protocol: Document 08/13/23 11:17 NM (Rec: 08/13/23 12:16 NM [id number]) Knee Goniometric Range of Motion Knee Left Knee ROM WFL No Patient Position Supine Flexion Active (degrees) 115 Flexion Passive (degrees) 115 Extension Active (degrees) 2 Extension Passive (degrees) 1 Comments 08/13/23: 116 flexion, 0 deg extension 07/14/23: 115 deg flex, 2 deg ext lacking 07/04/23: lacks 3 deg ext with active quad contraction; 115 AROM knee flex 05/30/23: 110 deg flex AROM, 5 deg ext AROM 05/30/23: lacking 5 deg ext with active quad contraction @IE: flex 80 deg ext -10 deg PT-OP-M Strength Start: 04/28/23 10:41 Freq: Status: Active Protocol: Document 08/13/23 11:17 NM (Rec: 08/13/23 12:16 NM [id number]) Hip Strength Hip Manual Muscle Testing Left Flexion (L2) 3+ Fair+ Abduction 3+ Fair+ External Rotation 3+ Fair+ Internal Rotation 3+ Fair+ Comments Assessed in sitting due to knee pain 08/13/23: 4/5 for all 07/14/23, 07/04/23: 4-/5 for all motions, no pain Knee Strength Knee Manual Muscle Testing Left Flexion (S2) 4 Good Extension (L3) 4 Good Comments 08/13/23: 4+/5 for flex, 4/5 ext 07/04/23: 4/5, no pain with resisted motion 05/30/23: 4/5 flex, 4-/5 ext @ IE: flex and ext 3/5 PT-OP-Q Treatments Start: 04/28/23 10:41 Freq: Status: Active Protocol: Document 08/27/23 13:00 NM (Rec: 08/27/23 13:47 NM [id number]) Therapeutic Exercises Supine Exercises SLR Supine Exercise Name with hip IR for TFL Side left Resistance AROM Reps/Minutes 1x8 Comments post manual; pain free, but difficult Sitting Exercises LAQ Sitting Exercise Name LAQ Side left Resistance 5# ankle weight Reps/Minutes 2x10 Comments post manual treatment; good TKE, pain free Standing Exercises Step up Standing Exercise Name 6 step up Side left Equipment Used 1 rail use, flat hand Reps/Minutes 1x12 Comments cued for hip hinge, strong glute/quad, DF on RLE, full step on LLE Gait Training Gait Activity stairs Device Used 1 hand rail (R), flat hand Level of Assistance CGA Distance/Duration 2 sets x 4 stairs Treatment Focus reciprocal pattern, knee flexion, foot clearance Comments cued for DF for foot clearance , hip hinge for glute. No pain with descent but hesitant to descend. 1 instance of knee flex, not buckle or LOB but decreased stability. Requires increased time SPC Description Gait Device Used SPC Level of Assistance close SBA Surface stable Distance/Duration 500 ft Treatment Focus gait mechanics with SPC, endurance, strength Comments 2pt gait pattern. Heel>toe strike with good push off, mechanics, knee flexion during swing phase with improved weight acceptance using quad over locking L knee, spc placement closer to body. Appears stiff with gait, lateral lean L Manual Therapy Treatment Soft Tissue Mobilization L knee Body Location hip flexors, ADD, quad, HS, TFL, ITB, sartorius Mobilization Type Rolling,Strumming Intensity/Depth Moderate Body Position Sidelying Comments Tenderness of entire L thigh, alex quad and sartorius. Manual rolling, strumming muscles. Improved soft tissue tenderness, less restriction post mobilization and stretching Manual Techniques manual stretch Comments 1. quad in sidelying, 1x60. PT blocking at hip, with knee flex to pt tolerance 2. contract-relax with HS, 1x60 total with 5 contraction, pt knee on PT shoulder Improved muscle length, pt reported muscle relaxation after, alex quad. No pain with stretching PT-OP-R Modalities Start: 05/30/23 15:01 Freq: Status: Active Protocol: Document 05/30/23 13:54 NM (Rec: 05/30/23 15:07 NM [id number]) Electric Stimulation Electric Stimulation Biphasic Body Location L quad Duration (Minutes) 10 Intensity 18 Frequency 50 Pulse Width 300 Contraction Type Normal Ramp 1.0 Comments 5/5 cycle due to time to maximize contractions Performed in sitting (LAQ), supine (quad sets, SAQ). Skin normal color, intact/dry before, during, after tmt. Skin check after 3 min and at end of session. PT-OP-T Assessment and Plan Start: 04/28/23 10:41 Freq: Status: Active Protocol: Document 08/27/23 13:00 NM (Rec: 08/27/23 13:47 NM [id number]) Physical Therapy Assessment Goals Seven Impairment gait Impairment Unable to complete 6 MWT at IE Short Term Goal (STG) Pt will be able to complete a 6 MWT using LRAD in order to demo improved gait mechanics and activity tolerance for community ambulation. 05/30/23: 798 ft with FWW STG Duration 6 weeks MET Mcfp Goal (LTG) Pt will improve 6 MWT distance by at least 100 ft using LRAD in order to demo improved gait mechanics and activity tolerance for community ambulation. 07/14/23: 646 ft with spc, 2 standing rest breaks 08/13/23: 588 ft with spc, reports feels more stiff LTG Duration 12 weeks PROGRESSING Six Impairment function Impairment LEFS Short Term Goal (STG) Pt will improve LEFS score by at least 9 points (MCID) in order to demo improved activity tolerance and strength. 05/30/23: 53 STG Duration 6 weeks MET Mcfp Goal (LTG) Pt will improve LEFS score by at least 18 points (2 MCID) in order to demo improved activity tolerance and strength. 05/30/23: 53 LTG Duration 12 weeks MET Five Impairment Balance, function Impairment TUG 41.5 sec with FWW Short Term Goal (STG) Pt will decrease TUG score time to at least 30 seconds or less using LRAD in order to demo improved balance during gait and transfers, to decrease fall risk. 07/04/23: 18.4 sec 05/30/23: 21 sec STG Duration 6 weeks MET Branch [employer]ental Manager Goal (LTG) Pt will decrease TUG score time to at least 15 seconds or less using LRAD in order to demo improved balance during gait and transfers, to decrease fall risk. 08/13/23: 18 sec, 17 sec, 16 sec 07/14/23: 16 sec FWW, 18 sec spc 07/04/23: 18.4 sec LTG Duration 12 weeks PROGRESSING Four Impairment strength Impairment Knee flex 3/5 Short Term Goal (STG) Pt will improve L knee flex strength to at least 4-/5 in order to perform stairs and for propulsion during gait. 05/30/23: 4/5 knee flex STG Duration 6 weeks MET Mcfp Goal (LTG) Pt will improve L knee flex strength to at least 4+/5 in order to perform stairs and for propulsion during gait. 08/13/23: 4+/5 knee flexion 07/14/23, 07/04/23: 4/5 knee flex MMT LTG Duration 12 weeks MET Three Impairment Strength Impairment Knee ext 3/5 Short Term Goal (STG) Pt will improve L knee ext strength to at least 4-/5 in order to demo improved quad control for stability and TKE for gait. 05/30/23: 4-/5 MMT STG Duration 6 weeks MET Mcfp Goal (LTG) Pt will improve L knee ext strength to at least 4+/5 in order to demo improved quad control for stability and TKE for gait. 08/13/23: 4/5 knee extension 07/14/23, 07/04/24: 4/5 knee ext MMT; functionally limited during step up, squat LTG Duration 12 weeks PROGRESSING Two Impairment ROM Impairment Knee ext 10 deg AROM (lacking) Short Term Goal (STG) Pt will improve L knee ext to at least 5 deg AROM in order to reach terminal knee extension during gait and improve knee stability during stairs/gait. 05/30/23: -5 deg knee ext but demos decreased quad activation STG Duration 6 weeks MET [employer]ental Manager Goal (LTG) Pt will improve L knee ext to at least 1 deg in order to reach terminal knee extension during gait and improve knee stabiltiy during stairs/gait. 08/13/23: 0 deg extension 07/14/23: lacking 2 deg ext with quad set, heel elevated 07/04/23: 3 with quad set 06/26/23: 1 deg with quad set, heel elevated due to calf LTG Duration 12 weeks MET One Impairment ROM Impairment Knee flex 80 deg AROM Short Term Goal (STG) Pt will improve L knee flex to at least 100 deg AROM in order to demo improved knee flex ROM for stairs and gait. 06/16/23: 115 deg flex AROM 05/30/23: 110 deg flex AROM STG Duration 6 weeks MET Branch Rental Manager Goal (LTG) Pt will improve L knee flex to > 115 deg AROM in order to demo improved knee flex ROM for stairs, gait, and to be comparable to RLE. 08/13/23: 116 deg knee flexion 07/04/23: 115 AROM MET; updated to > 115 deg 06/26/23: MET- 115 deg AROM pre- mob 118 post-mob LTG Duration 12 weeks MET; goal updated Assessment Summary Assessment Pt with improved pain levels in L quad post session. Emphasis on gait training with spc to improve weight acceptance, foot clearance, propulsion, and 2pt pattern. Pt cued extensively for SPC placement nearer body, corrected height of AD. Demos quad avoidance, stiffness with gait even with cueing. Educated pt to continue with 4ww at home for safety. Trialed stairs with 1 hand rail use; demos increased UE reliance and hesitation upon descent, cued for hip hinge to facilitate stronger glute. Demos full knee flexion, but lack glute/quad strength to safely control descent. Requires increased time for stairs, gait, activity. Pt currently also has lumbar stenosis and R knee pain, which likely affects activity tolerance as well. Continued with manual stretching, soft tissue mobilization of L quad/ hip flexors to improve soft tissue length and decrease pain symptoms; reports complete relief post manual treatment. Pt educated on stretching, self soft tissue mobilization at home to limit tightness; she verbalizes agreement. Pt would benefit from skilled PT for L knee strengthening/mobility in order to improve activity tolerance and decrease fall risk during gait/ADLs. Physical Therapy Plan Frequency and Duration Frequency of Treatment 2x/Week Duration of treatment (weeks) 8 Plan of Care Start Date 07/14/23 Plan of Care End Date 09/12/23 Therapeutic Interventions Therapeutic Interventions Aquatic Therapy,Balance Training,Gait Training,Home Exercise Program,Joint Mobilizations,Manual Therapy, Neuromuscular Re-education, Patient/Caregiver Education, Self-Care/Home Management,Soft Tissue Mobilization,Taping, Therapeutic Activities, Therapeutic Exercises Modalities Cold Pack/Ice Massage,Electric Stimulation,Hot Packs, Iontophoresis,Ultrasound, Vasopneumatic Devices Next Visit Focus/Plan Next Note Type Treatment Note Next Visit Plan Next session: gait training with cane, continue 6 step up with hinge and lateral, leg press, strengthening hip abd/ glutes/quad with band. Balance training. Manual: soft tissue of quad, joint mobilizations prn, check ROM (knee flex) update HEP
--- NOTE | 2023-09-01 15:11 | PT.OTN ---
Current Diagnoses Unilateral primary osteoarthritis, left knee (09/01/23) Physical Therapy Treatment Note PT-OP-A Visit Information Start: 04/28/23 10:41 Freq: Status: Active Protocol: Document 09/01/23 13:01 NM (Rec: 09/01/23 13:46 NM [id number]) Out-Patient Physical Therapy Visit Information Visit Information Visit Type Treatment Note Visit Start Time 13:02 Visit Stop Time 13:45 Visit Number 26 Evaluation Information Evaluation Date 04/28/23 Precautions Precautions Post-op 04/18/23 (TKA) Fall risk PT-OP-B Current Condition Start: 04/28/23 10:41 Freq: Status: Active Protocol: Document 04/28/23 10:42 NM (Rec: 04/28/23 11:40 NM [id number]) Current Condition History of Current Condition Onset Date 04/18/23 Current Complaints pain, swelling, sleep History of Current Condition Pt presents to clinic with FWW s/p L TKA on 04/19. She is seeing Dr. Patton for her knee. Currently, pt still has her post-op dressings still on and is WBAT with a FWW. Pt has B knee OA, which led to the replacement. She had no pre-op PT. Prior to surgery, she was able to ambulate up to 1/4 mi due to pain, which is a decrease from her baseline which was 1 mi. She is planning on having the R knee replaced in a few months. Pt has steps leading up to her home which is covered by a ramp. She used a FWW for gait prior to surgery due to feeling like she had poor balance; she also has a spc that she uses occasional (not since surgery). Pt reports compliance with HEP from hospital, performing exercises 1-2x/day. She does report some tingling in her LLE down to her foot, but this was occuring prior to her TKA. Her main compliants are pain, weakness, swelling, stiffness, and poor sleep since her surgery. Future Testing and Treatments Planned Follow up 04/[address] Patton Treatment Goals Patient/Caregiver Goals Decrease pain, improve knee motion and strength, be able to sleep without discomfort Prior Functional Status Baseline Function- ADL's Independent Baseline Function- Mobility Independent Baseline Function- Gait FWW or spc for balance; up to 1/4 mi for gait distance Baseline Function- Recreation/Hobbies Gardening (hands and knees) Baseline Function- Other Stairs (no issue) Current Functional Impairments (Reported) Functional Limitations- Mobility/Gait No stairs due to limited motion and pain, no more than household ambulation Functional Limitations- Recreation/ Unable to garden Hobbies PT-OP-C Subjective Start: 04/28/23 10:41 Freq: Status: Active Protocol: Document 09/01/23 13:01 NM (Rec: 09/01/23 13:46 NM [id number]) OP-PT Subjective Patient Comments Patient Comments Pt sees Dr. Saavedra tomorrow for back pain, numbness of L thigh (new symptom- has lumbar stenosis), possible injection. She follows up with Dr. Patton for R knee next week. she reports compliance with HEP PT-OP-D Balance Start: 04/28/23 10:41 Freq: Status: Active Protocol: Document 04/28/23 10:42 NM (Rec: 04/28/23 11:56 NM [id number]) OP-PT Balance Assessment Sitting Balance Static Sitting Balance Ability Normal Dynamic Sitting Balance Ability Normal Standing Balance Static Standing Balance Ability Good Dynamic Standing Balance Ability Fair Device Used FWW Standing Balance Comments Occasional CGA to steady during gait, changing JUVENCIO Denise Fall Scale Copyright Permission PT-OP-E Functional Tests Start: 04/28/23 10:41 Freq: Status: Active Protocol: Document 04/28/23 10:42 NM (Rec: 04/28/23 11:40 NM [id number]) Functional Tests Timed Up and Go (TUG) Score 41.5 sec Comments FWW, SBA PT-OP-F Manual Assessment Start: 04/28/23 10:41 Freq: Status: Active Protocol: Document 04/28/23 10:42 NM (Rec: 04/28/23 11:40 NM [id number]) Manual Assessments Soft Tissue Assessment Soft Tissue Mobility Assessment Soft tissue restrictions of L hamstring. Edema in L ankle, knee and calf. Will need scar mobilization to prevent adhesions once scar is closed and healed. Joint Mobility Assessment Joint Mobility Assessment Empty end feel with PROM, limited mobility PT-OP-G Mobility & Gait Start: 04/28/23 10:41 Freq: Status: Active Protocol: Document 04/28/23 10:42 NM (Rec: 04/28/23 11:40 NM [id number]) OP Gait Assessment Gait Gait Assistance Required: Standby Assistance Distance (Feet) 200 Able to Maintain Weight Bearing Status Yes During Gait Assistive Devices Assistive Device Gait Belt,Straight Cane,Front Wheeled Walker Gait Deviations General Gait Pattern Antalgic,Decreased Stride Length,Step-to Gait Factors Limiting Gait Function Factors Limiting Gait Function Decreased Activity Tolerance, Decreased Strength,Limited Range of Motion,Pain,Poor Balance Comments Gait Comments Primarily uses FWW for gait. Began using FWW for gait prior in Jun 2022 prior to surgery due to poor balance. PT-OP-H Neuro Start: 04/28/23 10:41 Freq: Status: Active Protocol: Document 04/28/23 10:42 NM (Rec: 04/28/23 11:40 NM [id number]) Sensation Evaluation Gross Sensation Gross Sensation WNL Comments Summary Comments LLE intact to light touch sensation in all dermatomes. PT-OP-J Posture/Palpation/Skin Start: 04/28/23 10:41 Freq: Status: Active Protocol: Document 04/28/23 10:42 NM (Rec: 04/28/23 11:40 NM [id number]) Posture Evaluation Position Standing Evaluation View Posterior Pelvis Posture Anteriorly Tilted Weight Distribution Weight Shifted Right,Decreased Wt.Bear on (L) Hip Posture (L) Externally Rotated Knee Posture (L) Genu Valgus,(R) Genu Valgus Patellar Posture (R) Superior Palpation Assessment Location L knee Palpation Location posterior knee, posterior calf , lateral and medial knee Palpation Findings Edema,Soft Tissue Tightness, Tenderness Palpation Details Tenderness and edema along posterior knee and calf. No sign of DVT Tenderness and edema along medial and lateral knee near patella, femoral condyles near joint line Skin Assessment Edema Assessment L ankle Edema Type Non-Pitting Edema Degree 2+ Edema Appearance Discolored,Puffy Circumference Measurement L knee Location 5 cm above patella (60cm), sub patella (51 cm), 10 cm below patella (49 cm) Comments L malleoli (27 cm) with excess on lateral side, at patella ( 56.5 cm) Incisional Assessment Incision Appearance/Comments Bandage is CDI. Still wrapped so could not formally assess incision. No signs of infection around bandage. Will assess further once bandage removed PT-OP-K Range of Motion Start: 04/28/23 10:41 Freq: Status: Active Protocol: Document 08/13/23 11:17 NM (Rec: 08/13/23 12:16 NM [id number]) Knee Goniometric Range of Motion Knee Left Knee ROM WFL No Patient Position Supine Flexion Active (degrees) 115 Flexion Passive (degrees) 115 Extension Active (degrees) 2 Extension Passive (degrees) 1 Comments 08/13/23: 116 flexion, 0 deg extension 07/14/23: 115 deg flex, 2 deg ext lacking 07/04/23: lacks 3 deg ext with active quad contraction; 115 AROM knee flex 05/30/23: 110 deg flex AROM, 5 deg ext AROM 05/30/23: lacking 5 deg ext with active quad contraction @IE: flex 80 deg ext -10 deg PT-OP-M Strength Start: 04/28/23 10:41 Freq: Status: Active Protocol: Document 08/13/23 11:17 NM (Rec: 08/13/23 12:16 NM [id number]) Hip Strength Hip Manual Muscle Testing Left Flexion (L2) 3+ Fair+ Abduction 3+ Fair+ External Rotation 3+ Fair+ Internal Rotation 3+ Fair+ Comments Assessed in sitting due to knee pain 08/13/23: 4/5 for all 07/14/23, 07/04/23: 4-/5 for all motions, no pain Knee Strength Knee Manual Muscle Testing Left Flexion (S2) 4 Good Extension (L3) 4 Good Comments 08/13/23: 4+/5 for flex, 4/5 ext 07/04/23: 4/5, no pain with resisted motion 05/30/23: 4/5 flex, 4-/5 ext @ IE: flex and ext 3/5 PT-OP-Q Treatments Start: 04/28/23 10:41 Freq: Status: Active Protocol: Document 09/01/23 13:01 NM (Rec: 09/01/23 13:46 NM [id number]) Gym Equipment Shuttle Recovery Bilateral Squats Details B squats Resistance 75# (2 navy) Shuttle Recovery Platform Stable Reps/Time 3x10 Therapeutic Exercises Standing Exercises hip 3 way Side bilateral Resistance lvl 2 teal tb around thighs Equipment Used 1 hand support on //bar for balance Reps/Minutes 1x8 ea Comments fatiguing; pain free but requires increased time; cued heel tap Lunge Standing Exercise Name lunge (both knees flexing) Side bilateral Resistance AROM Equipment Used ballet bar 1 UE flat support for balance/opp LE fwd Reps/Minutes 1x12 ea Comments improved B knee flex, cued neutral toes; requires increased time Gait Training Gait Activity stairs Device Used 1 hand rail (R), flat hand Level of Assistance CGA (almost SBA) Distance/Duration 3 sets x 4 stairs Treatment Focus reciprocal pattern, knee flexion, foot clearance Comments cued for DF for foot clearance , hip hinge for glute. No pain with descent due to knee flexion, less hesitantancy to descend today with cueing for spc. Cued spc sequencing. Improved stepping up, less reliant on UE to ascend SPC Description Gait Device Used SPC Level of Assistance close SBA Surface stable Distance/Duration around clinic Treatment Focus gait mechanics with SPC, endurance, strength, toe off Comments 2pt gait pattern. Cued Heel> toe strike with good push off, mechanics, knee flexion with ankle DF during swing phase, less leaning laterally with spc compared to previous but slower gait and fatiguing 6 MWT Device Used spc Level of Assistance close SBA Surface stable- carpet, tile Distance/Duration 640 ft Treatment Focus endurance, nml gait, TKE Comments Cued heel > toe, increased toe off into swing, softer L knee into stance to reduce stiffness. As pt fatigues, demos decreased gait speed, stiffer L stance. Requires 1 standing rest break ~5 seconds . Very fatigued by end of test Manual Therapy Treatment Soft Tissue Mobilization L knee Body Location hip flexors, ADD, quad, HS, TFL, ITB, sartorius Mobilization Type Instrument Assisted,Rolling, Strumming Intensity/Depth Moderate Body Position Sidelying Comments Tenderness of entire L thigh, alex quad and sartorius. Manual rolling, strumming muscles. Less TFL tenderness but still contains palpable tender nodule. Improved soft tissue tenderness, less restriction post mobilization and stretching Joint Mobilizations L knee Joint P-A on tibia for flex Grade III Body Position Supine Reps/Duration 2x30 Comments Grade III mobilizations to increase knee flex ROM, no pain with mobilization. 120 deg flex post mobilization Manual Techniques manual stretch Comments quad in sidelying, 1x60. PT blocking at hip, with knee flex to pt tolerance Improved muscle length, pt reported muscle relaxation after, alex quad. No pain with stretching PT-OP-R Modalities Start: 05/30/23 15:01 Freq: Status: Active Protocol: Document 05/30/23 13:54 NM (Rec: 05/30/23 15:07 NM [id number]) Electric Stimulation Electric Stimulation Biphasic Body Location L quad Duration (Minutes) 10 Intensity 18 Frequency 50 Pulse Width 300 Contraction Type Normal Ramp 1.0 Comments 5/5 cycle due to time to maximize contractions Performed in sitting (LAQ), supine (quad sets, SAQ). Skin normal color, intact/dry before, during, after tmt. Skin check after 3 min and at end of session. PT-OP-T Assessment and Plan Start: 04/28/23 10:41 Freq: Status: Active Protocol: Document 09/01/23 13:01 NM (Rec: 09/01/23 13:46 NM [id number]) Physical Therapy Assessment Goals Seven Impairment gait Impairment Unable to complete 6 MWT at IE Short Term Goal (STG) Pt will be able to complete a 6 MWT using LRAD in order to demo improved gait mechanics and activity tolerance for community ambulation. 05/30/23: 798 ft with FWW STG Duration 6 weeks MET Bore Miner Operator Goal (LTG) Pt will improve 6 MWT distance by at least 100 ft using LRAD in order to demo improved gait mechanics and activity tolerance for community ambulation. 07/14/23: 646 ft with spc, 2 standing rest breaks 08/13/23: 588 ft with spc, reports feels more stiff 09/01/23: 640 ft with spc, 1 standing rest break LTG Duration 12 weeks PROGRESSING Six Impairment function Impairment LEFS 10/80 Short Term Goal (STG) Pt will improve LEFS score by at least 9 points (MCID) in order to demo improved activity tolerance and strength. 05/30/23: 53/80 STG Duration 6 weeks MET Skilled Nursing Goal (LTG) Pt will improve LEFS score by at least 18 points (2 MCID) in order to demo improved activity tolerance and strength. 05/30/23: 53/80 LTG Duration 12 weeks MET Five Impairment Balance, function Impairment TUG 41.5 sec with FWW Short Term Goal (STG) Pt will decrease TUG score time to at least 30 seconds or less using LRAD in order to demo improved balance during gait and transfers, to decrease fall risk. 07/04/23: 18.4 sec 05/30/23: 21 sec STG Duration 6 weeks MET Bore Miner Operator Goal (LTG) Pt will decrease TUG score time to at least 15 seconds or less using LRAD in order to demo improved balance during gait and transfers, to decrease fall risk. 08/13/23: 18 sec, 17 sec, 16 sec 07/14/23: 16 sec FWW, 18 sec spc 07/04/23: 18.4 sec LTG Duration 12 weeks PROGRESSING Four Impairment strength Impairment Knee flex 3/5 Short Term Goal (STG) Pt will improve L knee flex strength to at least 4-/5 in order to perform stairs and for propulsion during gait. 05/30/23: 4/5 knee flex STG Duration 6 weeks MET Skilled Nursing Goal (LTG) Pt will improve L knee flex strength to at least 4+/5 in order to perform stairs and for propulsion during gait. 08/13/23: 4+/5 knee flexion 07/14/23, 07/04/23: 4/5 knee flex MMT LTG Duration 12 weeks MET Three Impairment Strength Impairment Knee ext 3/5 Short Term Goal (STG) Pt will improve L knee ext strength to at least 4-/5 in order to demo improved quad control for stability and TKE for gait. 05/30/23: 4-/5 MMT STG Duration 6 weeks MET Bore Miner Operator Goal (LTG) Pt will improve L knee ext strength to at least 4+/5 in order to demo improved quad control for stability and TKE for gait. 08/13/23: 4/5 knee extension 07/14/23, 07/04/24: 4/5 knee ext MMT; functionally limited during step up, squat LTG Duration 12 weeks PROGRESSING Two Impairment ROM Impairment Knee ext 10 deg AROM (lacking) Short Term Goal (STG) Pt will improve L knee ext to at least 5 deg AROM in order to reach terminal knee extension during gait and improve knee stability during stairs/gait. 05/30/23: -5 deg knee ext but demos decreased quad activation STG Duration 6 weeks MET Skilled Nursing Goal (LTG) Pt will improve L knee ext to at least 1 deg in order to reach terminal knee extension during gait and improve knee stabiltiy during stairs/gait. 08/13/23: 0 deg extension 07/14/23: lacking 2 deg ext with quad set, heel elevated 07/04/23: 3 with quad set 06/26/23: 1 deg with quad set, heel elevated due to calf LTG Duration 12 weeks MET One Impairment ROM Impairment Knee flex 80 deg AROM Short Term Goal (STG) Pt will improve L knee flex to at least 100 deg AROM in order to demo improved knee flex ROM for stairs and gait. 06/16/23: 115 deg flex AROM 05/30/23: 110 deg flex AROM STG Duration 6 weeks MET Skilled Nursing Goal (LTG) Pt will improve L knee flex to > 115 deg AROM in order to demo improved knee flex ROM for stairs, gait, and to be comparable to RLE. 08/13/23: 116 deg knee flexion 07/04/23: 115 AROM MET; updated to > 115 deg 06/26/23: MET- 115 deg AROM pre- mob 118 post-mob LTG Duration 12 weeks MET; goal updated Assessment Summary Assessment Pt tolerated session well but demos decreased activity tolerance. She continues to lack L quad/glute strength during gait and functional tasks (e.g. stairs). During 6 MWT distance, pt able to perform 640 ft with spc; demos decreased toe off, knee flexion into swing. Pt less stiff when weight bearing on LLE, but continues to fatigue quickly and ambulates at slower speed. Further gait training during session to improve propulsion with LLE. Initiated hip [address] for continued hip strengthening; cued heel tap to promote greater glute activation, 1 hand only for balance to decrease UE reliance. Improved B knee flexion with leg press and lunges; unable to progress resistance or reps as pt requires increased time with activity and fatigues quickly. Pt tolerated well without pain; cued for hip hinge, limit UE assistance. Educated on use of spc at home more frequently to improve confidence and mobility. Continued stair training with spc, PT providing cues for sequencing with spc and safety . She demos less hesitancy during descent compared to previous sessions, but does not perform stairs smoothly and heavily relies on upper extremity support to maintain stability. Pt has less quad tenderness and soft tissue restrictions limiting knee flexion this session. Continues to have tenderness of R quad near TFL. Educated on heat, soft tissue mobilization, stretching, and strengthening progression to assist with pain reduction. Pt would benefit from skilled PT for L quad/glute strengthening, gait and balance training in order to improve activity tolerance and return to PLOF. Physical Therapy Plan Frequency and Duration Frequency of Treatment 2x/Week Duration of treatment (weeks) 8 Plan of Care Start Date 07/14/23 Plan of Care End Date 09/12/23 Therapeutic Interventions Therapeutic Interventions Aquatic Therapy,Balance Training,Gait Training,Home Exercise Program,Joint Mobilizations,Manual Therapy, Neuromuscular Re-education, Patient/Caregiver Education, Self-Care/Home Management,Soft Tissue Mobilization,Taping, Therapeutic Activities, Therapeutic Exercises Modalities Cold Pack/Ice Massage,Electric Stimulation,Hot Packs, Iontophoresis,Ultrasound, Vasopneumatic Devices Next Visit Focus/Plan Next Note Type Treatment Note Next Visit Plan Next session: step ups 6, squats, lunges, LAQ (cables), HSC, leg press POC: gait training with cane prn (hurdles), continue 6 step up with hinge and lateral , leg press, strengthening hip abd/glutes/quad with band. Balance training. Manual: soft tissue of quad, joint mobilizations prn, check ROM (knee flex) update HEP PN to extend POC on 09/08 update poc 09/08
--- NOTE | 2023-09-04 15:08 | PT.OTN ---
Current Diagnoses Unilateral primary osteoarthritis, left knee (09/04/23) Physical Therapy Treatment Note PT-OP-A Visit Information Start: 04/28/23 10:41 Freq: Status: Active Protocol: Document 09/04/23 09:40 AB (Rec: 09/04/23 12:59 AB [id number]) Out-Patient Physical Therapy Visit Information Visit Information Visit Type Treatment Note Visit Note DOS: 04/18/23 Access Code [email or web address] Visit Start Time 10:34 Visit Stop Time 11:17 Visit Number 27 Number of MACHINERY RIGGER Visits 1 Evaluation Information Evaluation Date 04/28/23 Precautions Precautions Post-op 04/18/23 (TKA) Fall risk PT-OP-B Current Condition Start: 04/28/23 10:41 Freq: Status: Active Protocol: Document 04/28/23 10:42 NM (Rec: 04/28/23 11:40 NM [id number]) Current Condition History of Current Condition Onset Date 04/18/23 Current Complaints pain, swelling, sleep History of Current Condition Pt presents to clinic with FWW s/p L TKA on 04/19. She is seeing Dr. Patton for her knee. Currently, pt still has her post-op dressings still on and is WBAT with a FWW. Pt has B knee OA, which led to the replacement. She had no pre-op PT. Prior to surgery, she was able to ambulate up to 1/4 mi due to pain, which is a decrease from her baseline which was 1 mi. She is planning on having the R knee replaced in a few months. Pt has steps leading up to her home which is covered by a ramp. She used a FWW for gait prior to surgery due to feeling like she had poor balance; she also has a spc that she uses occasional (not since surgery). Pt reports compliance with HEP from hospital, performing exercises 1-2x/day. She does report some tingling in her LLE down to her foot, but this was occuring prior to her TKA. Her main compliants are pain, weakness, swelling, stiffness, and poor sleep since her surgery. Future Testing and Treatments Planned Follow up 04/[address] Patton Treatment Goals Patient/Caregiver Goals Decrease pain, improve knee motion and strength, be able to sleep without discomfort Prior Functional Status Baseline Function- ADL's Independent Baseline Function- Mobility Independent Baseline Function- Gait FWW or spc for balance; up to 1/4 mi for gait distance Baseline Function- Recreation/Hobbies Gardening (hands and knees) Baseline Function- Other Stairs (no issue) Current Functional Impairments (Reported) Functional Limitations- Mobility/Gait No stairs due to limited motion and pain, no more than household ambulation Functional Limitations- Recreation/ Unable to garden Hobbies PT-OP-C Subjective Start: 04/28/23 10:41 Freq: Status: Active Protocol: Document 09/04/23 09:40 AB (Rec: 09/04/23 12:59 AB [id number]) OP-PT Subjective Patient Comments Patient Comments Patient reports she is going injection for her back, but will not know date for 7-10 days. Patient reports her appointment for the knee is . 2,2,2 seconds SLS left LE without UE use start of session PT-OP-D Balance Start: 04/28/23 10:41 Freq: Status: Active Protocol: Document 04/28/23 10:42 NM (Rec: 04/28/23 11:56 NM [id number]) OP-PT Balance Assessment Sitting Balance Static Sitting Balance Ability Normal Dynamic Sitting Balance Ability Normal Standing Balance Static Standing Balance Ability Good Dynamic Standing Balance Ability Fair Device Used FWW Standing Balance Comments Occasional CGA to steady during gait, changing JUVENCIO Denise Fall Scale Copyright Permission PT-OP-E Functional Tests Start: 04/28/23 10:41 Freq: Status: Active Protocol: Document 04/28/23 10:42 NM (Rec: 04/28/23 11:40 NM [id number]) Functional Tests Timed Up and Go (TUG) Score 41.5 sec Comments FWW, SBA PT-OP-F Manual Assessment Start: 04/28/23 10:41 Freq: Status: Active Protocol: Document 04/28/23 10:42 NM (Rec: 04/28/23 11:40 NM [id number]) Manual Assessments Soft Tissue Assessment Soft Tissue Mobility Assessment Soft tissue restrictions of L hamstring. Edema in L ankle, knee and calf. Will need scar mobilization to prevent adhesions once scar is closed and healed. Joint Mobility Assessment Joint Mobility Assessment Empty end feel with PROM, limited mobility PT-OP-G Mobility & Gait Start: 04/28/23 10:41 Freq: Status: Active Protocol: Document 04/28/23 10:42 NM (Rec: 04/28/23 11:40 NM [id number]) OP Gait Assessment Gait Gait Assistance Required: Standby Assistance Distance (Feet) 200 Able to Maintain Weight Bearing Status Yes During Gait Assistive Devices Assistive Device Gait Belt,Straight Cane,Front Wheeled Walker Gait Deviations General Gait Pattern Antalgic,Decreased Stride Length,Step-to Gait Factors Limiting Gait Function Factors Limiting Gait Function Decreased Activity Tolerance, Decreased Strength,Limited Range of Motion,Pain,Poor Balance Comments Gait Comments Primarily uses FWW for gait. Began using FWW for gait prior in Jun 2022 prior to surgery due to poor balance. PT-OP-H Neuro Start: 04/28/23 10:41 Freq: Status: Active Protocol: Document 04/28/23 10:42 NM (Rec: 04/28/23 11:40 NM [id number]) Sensation Evaluation Gross Sensation Gross Sensation WNL Comments Summary Comments LLE intact to light touch sensation in all dermatomes. PT-OP-J Posture/Palpation/Skin Start: 04/28/23 10:41 Freq: Status: Active Protocol: Document 04/28/23 10:42 NM (Rec: 04/28/23 11:40 NM [id number]) Posture Evaluation Position Standing Evaluation View Posterior Pelvis Posture Anteriorly Tilted Weight Distribution Weight Shifted Right,Decreased Wt.Bear on (L) Hip Posture (L) Externally Rotated Knee Posture (L) Genu Valgus,(R) Genu Valgus Patellar Posture (R) Superior Palpation Assessment Location L knee Palpation Location posterior knee, posterior calf , lateral and medial knee Palpation Findings Edema,Soft Tissue Tightness, Tenderness Palpation Details Tenderness and edema along posterior knee and calf. No sign of DVT Tenderness and edema along medial and lateral knee near patella, femoral condyles near joint line Skin Assessment Edema Assessment L ankle Edema Type Non-Pitting Edema Degree 2+ Edema Appearance Discolored,Puffy Circumference Measurement L knee Location 5 cm above patella (60cm), sub patella (51 cm), 10 cm below patella (49 cm) Comments L malleoli (27 cm) with excess on lateral side, at patella ( 56.5 cm) Incisional Assessment Incision Appearance/Comments Bandage is CDI. Still wrapped so could not formally assess incision. No signs of infection around bandage. Will assess further once bandage removed PT-OP-K Range of Motion Start: 04/28/23 10:41 Freq: Status: Active Protocol: Document 08/13/23 11:17 NM (Rec: 08/13/23 12:16 NM [id number]) Knee Goniometric Range of Motion Knee Left Knee ROM WFL No Patient Position Supine Flexion Active (degrees) 115 Flexion Passive (degrees) 115 Extension Active (degrees) 2 Extension Passive (degrees) 1 Comments 08/13/23: 116 flexion, 0 deg extension 07/14/23: 115 deg flex, 2 deg ext lacking 07/04/23: lacks 3 deg ext with active quad contraction; 115 AROM knee flex 05/30/23: 110 deg flex AROM, 5 deg ext AROM 05/30/23: lacking 5 deg ext with active quad contraction @IE: flex 80 deg ext -10 deg PT-OP-M Strength Start: 04/28/23 10:41 Freq: Status: Active Protocol: Document 08/13/23 11:17 NM (Rec: 08/13/23 12:16 NM [id number]) Hip Strength Hip Manual Muscle Testing Left Flexion (L2) 3+ Fair+ Abduction 3+ Fair+ External Rotation 3+ Fair+ Internal Rotation 3+ Fair+ Comments Assessed in sitting due to knee pain 08/13/23: 4/5 for all 07/14/23, 07/04/23: 4-/5 for all motions, no pain Knee Strength Knee Manual Muscle Testing Left Flexion (S2) 4 Good Extension (L3) 4 Good Comments 08/13/23: 4+/5 for flex, 4/5 ext 07/04/23: 4/5, no pain with resisted motion 05/30/23: 4/5 flex, 4-/5 ext @ IE: flex and ext 3/5 PT-OP-Q Treatments Start: 04/28/23 10:41 Freq: Status: Active Protocol: Document 09/04/23 09:40 AB (Rec: 09/04/23 12:59 AB [id number]) Therapeutic Exercises Supine Exercises Heel slides Side left Reps/Minutes 10 Comments post manual therapy Sitting Exercises hip abduction Sitting Exercise Name 1. seated, 2. isometric Side bilateral Resistance lvl 3 [place] tb (level one and 3 for one minute holds Equipment Used feet flat Reps/Minutes 1. 2x10, 2. 2x60 Comments Pt ed rationale of one minute hold for activation Standing Exercises bilateral heel raise Standing Exercise Name with UE support Reps/Minutes 2X[address] Side bilateral Resistance lvl 2 teal tb around thighs Equipment Used 1 hand support on //bar for balance Reps/Minutes 1x8 ea Comments fatiguing; pain free but requires increased time; cued heel tap Step up Standing Exercise Name 6 step up Side left Equipment Used 1 rail use, flat hand Reps/Minutes 1x12 Comments cued for hip hinge, strong glute/quad, DF on RLE, full step on LLE Manual Therapy Treatment Soft Tissue Mobilization left knee Body Location for swelling and to areas of increased density peripatllar and lateral Scar mobilization Body Location scar Mobilization Type Cross-Friction,Other Intensity/Depth Moderate Body Position Hooklying Comments good feedback but sensitiving multidirectional L knee Body Location quad, peripatellar area and for swelling Mobilization Type Cross-Friction,Rolling,Other Intensity/Depth Moderate Body Position Hooklying Neuro Re-Education Treatment Balance Activities step up taps Details hands above parallel bars Reps/Duration X10 Comments CGA marching on blue cushion Details hands above parallel bars Reps/Duration X12 Comments CGA retro stepping Details hands above parallel bars Reps/Duration X10 X 3 tandem stepping Details hands above parallel bars Reps/Duration 10 feet X3 Comments CGA SLS left LE Details hands above parallel bars Surface floor Reps/Duration X5 Comments CGA PT-OP-R Modalities Start: 05/30/23 15:01 Freq: Status: Active Protocol: Document 05/30/23 13:54 NM (Rec: 05/30/23 15:07 NM [id number]) Electric Stimulation Electric Stimulation Biphasic Body Location L quad Duration (Minutes) 10 Intensity 18 Frequency 50 Pulse Width 300 Contraction Type Normal Ramp 1.0 Comments 5/5 cycle due to time to maximize contractions Performed in sitting (LAQ), supine (quad sets, SAQ). Skin normal color, intact/dry before, during, after tmt. Skin check after 3 min and at end of session. PT-OP-T Assessment and Plan Start: 04/28/23 10:41 Freq: Status: Active Protocol: Document 09/04/23 09:40 AB (Rec: 09/04/23 12:59 AB [id number]) Physical Therapy Assessment Goals Seven Impairment gait Impairment Unable to complete 6 MWT at IE Short Term Goal (STG) Pt will be able to complete a 6 MWT using LRAD in order to demo improved gait mechanics and activity tolerance for community ambulation. 05/30/23: 798 ft with FWW STG Duration 6 weeks MET Rn Camp Goal (LTG) Pt will improve 6 MWT distance by at least 100 ft using LRAD in order to demo improved gait mechanics and activity tolerance for community ambulation. 07/14/23: 646 ft with spc, 2 standing rest breaks 08/13/23: 588 ft with spc, reports feels more stiff 09/01/23: 640 ft with spc, 1 standing rest break LTG Duration 12 weeks PROGRESSING Six Impairment function Impairment LEFS Short Term Goal (STG) Pt will improve LEFS score by at least 9 points (MCID) in order to demo improved activity tolerance and strength. 05/30/23: 53 STG Duration 6 weeks MET Halfway Goal (LTG) Pt will improve LEFS score by at least 18 points (2 MCID) in order to demo improved activity tolerance and strength. 05/30/23: 53 LTG Duration 12 weeks MET Five Impairment Balance, function Impairment TUG 41.5 sec with FWW Short Term Goal (STG) Pt will decrease TUG score time to at least 30 seconds or less using LRAD in order to demo improved balance during gait and transfers, to decrease fall risk. 07/04/23: 18.4 sec 05/30/23: 21 sec STG Duration 6 weeks MET Halfway Goal (LTG) Pt will decrease TUG score time to at least 15 seconds or less using LRAD in order to demo improved balance during gait and transfers, to decrease fall risk. 08/13/23: 18 sec, 17 sec, 16 sec 07/14/23: 16 sec FWW, 18 sec spc 07/04/23: 18.4 sec LTG Duration 12 weeks PROGRESSING Four Impairment strength Impairment Knee flex 07/28 Short Term Goal (STG) Pt will improve L knee flex strength to at least 4-/5 in order to perform stairs and for propulsion during gait. 05/30/23: 4/5 knee flex STG Duration 6 weeks MET Rn Camp Goal (LTG) Pt will improve L knee flex strength to at least 4+/5 in order to perform stairs and for propulsion during gait. 08/13/23: 4+/5 knee flexion 07/14/23, 07/04/23: 4/5 knee flex MMT LTG Duration 12 weeks MET Three Impairment Strength Impairment Knee ext 3 Short Term Goal (STG) Pt will improve L knee ext strength to at least 4-/5 in order to demo improved quad control for stability and TKE for gait. 05/30/23: 4-/5 MMT STG Duration 6 weeks MET Rn Camp Goal (LTG) Pt will improve L knee ext strength to at least 4+/5 in order to demo improved quad control for stability and TKE for gait. 08/13/23: 4/5 knee extension 07/14/23, 07/04/24: 4/5 knee ext MMT; functionally limited during step up, squat LTG Duration 12 weeks PROGRESSING Two Impairment ROM Impairment Knee ext 10 deg AROM (lacking) Short Term Goal (STG) Pt will improve L knee ext to at least 5 deg AROM in order to reach terminal knee extension during gait and improve knee stability during stairs/gait. 05/30/23: -5 deg knee ext but demos decreased quad activation STG Duration 6 weeks MET Halfway Goal (LTG) Pt will improve L knee ext to at least 1 deg in order to reach terminal knee extension during gait and improve knee stabiltiy during stairs/gait. 08/13/23: 0 deg extension 07/14/23: lacking 2 deg ext with quad set, heel elevated 07/04/23: 3 with quad set 06/26/23: 1 deg with quad set, heel elevated due to calf LTG Duration 12 weeks MET One Impairment ROM Impairment Knee flex 80 deg AROM Short Term Goal (STG) Pt will improve L knee flex to at least 100 deg AROM in order to demo improved knee flex ROM for stairs and gait. 06/16/23: 115 deg flex AROM 05/30/23: 110 deg flex AROM STG Duration 6 weeks MET Rn Camp Goal (LTG) Pt will improve L knee flex to > 115 deg AROM in order to demo improved knee flex ROM for stairs, gait, and to be comparable to RLE. 08/13/23: 116 deg knee flexion 07/04/23: 115 AROM MET; updated to > 115 deg 06/26/23: MET- 115 deg AROM pre- mob 118 post-mob LTG Duration 12 weeks MET; goal updated Assessment Summary Assessment left ankle AROM 111 deg flexion post balance and strengthening exercises, to 113 deg flexion, reports the knee feels pretty good end of session. Physical Therapy Plan Frequency and Duration Frequency of Treatment 2x/Week Duration of treatment (weeks) 8 Plan of Care Start Date 07/14/23 Plan of Care End Date 09/12/23 Next Visit Focus/Plan Next Note Type Progress Note Next Visit Plan Next session: step ups 6, squats, lunges, LAQ (cables), HSC, leg press POC: gait training with cane prn (hurdles), continue 6 step up with hinge and lateral , leg press, strengthening hip abd/glutes/quad with band. Balance training. Manual: soft tissue of quad, joint mobilizations prn, check ROM (knee flex) update HEP PN to extend POC on 09/08 update poc 09/08
--- NOTE | 2023-09-09 15:25 | PT.OTN ---
Current Diagnoses Unilateral primary osteoarthritis, left knee (09/09/23) Physical Therapy Treatment Note PT-OP-A Visit Information Start: 04/28/23 10:41 Freq: Status: Active Protocol: Document 09/09/23 11:18 NM (Rec: 09/09/23 12:06 NM [id number]) Out-Patient Physical Therapy Visit Information Visit Information Visit Type Progress Note Visit Start Time 11:18 Visit Stop Time 12:00 Visit Number 28 Evaluation Information Evaluation Date 04/28/23 Precautions Precautions Post-op 04/18/23 (TKA) Fall risk PT-OP-B Current Condition Start: 04/28/23 10:41 Freq: Status: Active Protocol: Document 04/28/23 10:42 NM (Rec: 04/28/23 11:40 NM [id number]) Current Condition History of Current Condition Onset Date 04/18/23 Current Complaints pain, swelling, sleep History of Current Condition Pt presents to clinic with FWW s/p L TKA on 04/19. She is seeing Dr. Patton for her knee. Currently, pt still has her post-op dressings still on and is WBAT with a FWW. Pt has B knee OA, which led to the replacement. She had no pre-op PT. Prior to surgery, she was able to ambulate up to 1/4 mi due to pain, which is a decrease from her baseline which was 1 mi. She is planning on having the R knee replaced in a few months. Pt has steps leading up to her home which is covered by a ramp. She used a FWW for gait prior to surgery due to feeling like she had poor balance; she also has a spc that she uses occasional (not since surgery). Pt reports compliance with HEP from hospital, performing exercises 1-2x/day. She does report some tingling in her LLE down to her foot, but this was occuring prior to her TKA. Her main compliants are pain, weakness, swelling, stiffness, and poor sleep since her surgery. Future Testing and Treatments Planned Follow up 04/[address] Patton Treatment Goals Patient/Caregiver Goals Decrease pain, improve knee motion and strength, be able to sleep without discomfort Prior Functional Status Baseline Function- ADL's Independent Baseline Function- Mobility Independent Baseline Function- Gait FWW or spc for balance; up to 1/4 mi for gait distance Baseline Function- Recreation/Hobbies Gardening (hands and knees) Baseline Function- Other Stairs (no issue) Current Functional Impairments (Reported) Functional Limitations- Mobility/Gait No stairs due to limited motion and pain, no more than household ambulation Functional Limitations- Recreation/ Unable to garden Hobbies PT-OP-C Subjective Start: 04/28/23 10:41 Freq: Status: Active Protocol: Document 09/09/23 11:18 NM (Rec: 09/09/23 12:06 NM [id number]) OP-PT Subjective Patient Comments Patient Comments Pt reports L quad soreness but no knee pain. Had R knee injection yesterday and is in 5/10 pain, having difficulty with walking. Pt reports improvements in L knee strength, mobility, and ability to perform ADLs. However, she is still switching between spc and 4ww, as she does not feel safe or balanced to ambulate with spc in community similar to PLOF due to decreased strength and balance PT-OP-D Balance Start: 04/28/23 10:41 Freq: Status: Active Protocol: Document 04/28/23 10:42 NM (Rec: 04/28/23 11:56 NM [id number]) OP-PT Balance Assessment Sitting Balance Static Sitting Balance Ability Normal Dynamic Sitting Balance Ability Normal Standing Balance Static Standing Balance Ability Good Dynamic Standing Balance Ability Fair Device Used FWW Standing Balance Comments Occasional CGA to steady during gait, changing JUVENCIO Denise Fall Scale Copyright Permission PT-OP-E Functional Tests Start: 04/28/23 10:41 Freq: Status: Active Protocol: Document 04/28/23 10:42 NM (Rec: 04/28/23 11:40 NM [id number]) Functional Tests Timed Up and Go (TUG) Score 41.5 sec Comments FWW, SBA PT-OP-F Manual Assessment Start: 04/28/23 10:41 Freq: Status: Active Protocol: Document 04/28/23 10:42 NM (Rec: 04/28/23 11:40 NM [id number]) Manual Assessments Soft Tissue Assessment Soft Tissue Mobility Assessment Soft tissue restrictions of L hamstring. Edema in L ankle, knee and calf. Will need scar mobilization to prevent adhesions once scar is closed and healed. Joint Mobility Assessment Joint Mobility Assessment Empty end feel with PROM, limited mobility PT-OP-G Mobility & Gait Start: 12/04/23 10:41 Freq: Status: Active Protocol: Document 04/28/23 10:42 NM (Rec: 04/28/23 11:40 NM [id number]) OP Gait Assessment Gait Gait Assistance Required: Standby Assistance Distance (Feet) 200 Able to Maintain Weight Bearing Status Yes During Gait Assistive Devices Assistive Device Gait Belt,Straight Cane,Front Wheeled Walker Gait Deviations General Gait Pattern Antalgic,Decreased Stride Length,Step-to Gait Factors Limiting Gait Function Factors Limiting Gait Function Decreased Activity Tolerance, Decreased Strength,Limited Range of Motion,Pain,Poor Balance Comments Gait Comments Primarily uses FWW for gait. Began using FWW for gait prior in Jun 2022 prior to surgery due to poor balance. PT-OP-H Neuro Start: 04/28/23 10:41 Freq: Status: Active Protocol: Document 04/28/23 10:42 NM (Rec: 04/28/23 11:40 NM [id number]) Sensation Evaluation Gross Sensation Gross Sensation WNL Comments Summary Comments LLE intact to light touch sensation in all dermatomes. PT-OP-J Posture/Palpation/Skin Start: 04/28/23 10:41 Freq: Status: Active Protocol: Document 04/28/23 10:42 NM (Rec: 04/28/23 11:40 NM [id number]) Posture Evaluation Position Standing Evaluation View Posterior Pelvis Posture Anteriorly Tilted Weight Distribution Weight Shifted Right,Decreased Wt.Bear on (L) Hip Posture (L) Externally Rotated Knee Posture (L) Genu Valgus,(R) Genu Valgus Patellar Posture (R) Superior Palpation Assessment Location L knee Palpation Location posterior knee, posterior calf , lateral and medial knee Palpation Findings Edema,Soft Tissue Tightness, Tenderness Palpation Details Tenderness and edema along posterior knee and calf. No sign of DVT Tenderness and edema along medial and lateral knee near patella, femoral condyles near joint line Skin Assessment Edema Assessment L ankle Edema Type Non-Pitting Edema Degree 2+ Edema Appearance Discolored,Puffy Circumference Measurement L knee Location 5 cm above patella (60cm), sub patella (51 cm), 10 cm below patella (49 cm) Comments L malleoli (27 cm) with excess on lateral side, at patella ( 56.5 cm) Incisional Assessment Incision Appearance/Comments Bandage is CDI. Still wrapped so could not formally assess incision. No signs of infection around bandage. Will assess further once bandage removed PT-OP-K Range of Motion Start: 04/28/23 10:41 Freq: Status: Active Protocol: Document 09/09/23 11:18 NM (Rec: 09/09/23 16:14 NM [id number]) Knee Goniometric Range of Motion Knee Left Knee ROM WFL No Patient Position Supine Flexion Active (degrees) 115 Flexion Passive (degrees) 115 Extension Active (degrees) 2 Extension Passive (degrees) 1 Comments 09/09/23: 118 deg flexion 08/13/23: 116 flexion, 0 deg extension 07/14/23: 115 deg flex, 2 deg ext lacking 07/04/23: lacks 3 deg ext with active quad contraction; 115 AROM knee flex 05/30/23: 110 deg flex AROM, 5 deg ext AROM 05/30/23: lacking 5 deg ext with active quad contraction @IE: flex 80 deg ext -10 deg PT-OP-M Strength Start: 04/28/23 10:41 Freq: Status: Active Protocol: Document 09/09/23 11:18 NM (Rec: 09/09/23 16:14 NM [id number]) Knee Strength Knee Manual Muscle Testing Left Flexion (S2) 4+ Good+ Extension (L3) 4 Good Comments 09/09/23: 4/5 knee ext, 4+/5 knee flex 08/13/23: 4+/5 for flex, 4/5 ext 07/04/23: 4/5, no pain with resisted motion 05/30/23: 4/5 flex, 4-/5 ext @ IE: flex and ext 3/5 PT-OP-Q Treatments Start: 04/28/23 10:41 Freq: Status: Active Protocol: Document 09/09/23 11:18 NM (Rec: 09/09/23 12:06 NM [id number]) Gym Equipment Cable Column (Body Solid) knee extension Details L only; challenging Resistance 1 plate Reps/Time 2x10 HS curl Details L only; challenging Resistance 2 plate Reps/Time 2x10 Shuttle Recovery Unilateral Squats Details L knee Resistance 50 # 2 navy Shuttle Recovery Platform Stable Reps/Time 2x15 Bilateral Squats Details B squats Resistance 75# (3 navy) Shuttle Recovery Platform Stable Reps/Time 2x15; medium hard Therapeutic Exercises Standing Exercises hip 3 way Side bilateral Resistance lvl 2 teal tb around thighs Equipment Used 1 hand support on //bar for balance Reps/Minutes 1x10 ea Comments pain free; added to HEP Gait Training Gait Activity 6 MWT Device Used 4WW Level of Assistance close SBA Surface stable- carpet, tile Distance/Duration 796 ft Treatment Focus endurance, nml gait, TKE Comments Cued heel > toe, increased toe off into swing, softer L knee into stance to reduce stiffness. As pt fatigues, demos decreased gait speed, stiffer L stance. Requires 1 standing rest break ~5 seconds . Very fatigued by end of test Self-Care/Home Management Treatment Education Patient Education Home Exercise Program Other Education HEP: 3 way hip with support, LAQ PT-OP-R Modalities Start: 05/30/23 15:01 Freq: Status: Active Protocol: Document 05/30/23 13:54 NM (Rec: 05/30/23 15:07 NM [id number]) Electric Stimulation Electric Stimulation Biphasic Body Location L quad Duration (Minutes) 10 Intensity 18 Frequency 50 Pulse Width 300 Contraction Type Normal Ramp 1.0 Comments 5/5 cycle due to time to maximize contractions Performed in sitting (LAQ), supine (quad sets, SAQ). Skin normal color, intact/dry before, during, after tmt. Skin check after 3 min and at end of session. PT-OP-T Assessment and Plan Start: 04/28/23 10:41 Freq: Status: Active Protocol: Document 09/09/23 11:18 NM (Rec: 09/09/23 12:06 NM [id number]) Physical Therapy Assessment Goals Seven Impairment gait Impairment Unable to complete 6 MWT at IE Short Term Goal (STG) Pt will be able to complete a 6 MWT using LRAD in order to demo improved gait mechanics and activity tolerance for community ambulation. 05/30/23: 798 ft with FWW STG Duration 6 weeks MET Client Services Vice President Goal (LTG) Pt will improve 6 MWT distance >800 ft using LRAD in order to demo improved gait mechanics and activity tolerance for community ambulation. 07/14/23: 646 ft with spc, 2 standing rest breaks 08/13/23: 588 ft with spc, reports feels more stiff 09/01/23: 640 ft with spc, 1 standing rest break 09/08/23: 796 ft 4WW, no rest breaks LTG Duration 12 weeks NOT MET; goal updated Six Impairment function Impairment LEFS Short Term Goal (STG) Pt will improve LEFS score by at least 9 points (MCID) in order to demo improved activity tolerance and strength. 05/30/23: 5380 STG Duration 6 weeks MET Client Services Vice President Goal (LTG) Pt will improve LEFS score by at least 18 points (2 MCID) in order to demo improved activity tolerance and strength. 05/30/23: 5309/09/23: 50/80 LTG Duration 12 weeks MET Five Impairment Balance, function Impairment TUG 41.5 sec with FWW Short Term Goal (STG) Pt will decrease TUG score time to at least 30 seconds or less using LRAD in order to demo improved balance during gait and transfers, to decrease fall risk. 07/04/23: 18.4 sec 05/30/23: 21 sec STG Duration 6 weeks MET Client Services Vice President Goal (LTG) Pt will decrease TUG score time to at least 15 seconds or less using LRAD in order to demo improved balance during gait and transfers, to decrease fall risk. 08/13/23: 18 sec, 17 sec, 16 sec 07/14/23: 16 sec FWW, 18 sec spc 07/04/23: 18.4 sec 09/09/23: 15.8 and 13.6 sec with 4WW, 18 and 16 and 15 sec with spc LTG Duration 12 weeks MET Four Impairment strength Impairment Knee flex 3/5 Short Term Goal (STG) Pt will improve L knee flex strength to at least 4-/5 in order to perform stairs and for propulsion during gait. 05/30/23: 4/5 knee flex STG Duration 6 weeks MET Long-Term Goal (LTG) Pt will improve L knee flex strength to at least 4+/5 in order to perform stairs and for propulsion during gait. 08/13/23: 4+/5 knee flexion 07/14/23, 07/04/23: 4/5 knee flex MMT LTG Duration 12 weeks MET Three Impairment Strength Impairment Knee ext 3/5 Short Term Goal (STG) Pt will improve L knee ext strength to at least 4-/5 in order to demo improved quad control for stability and TKE for gait. 05/30/23: 4-/5 MMT STG Duration 6 weeks MET Client Services Vice President Goal (LTG) Pt will improve L knee ext strength to at least 4+/5 in order to demo improved quad control for stability and TKE for gait. 09/09/23: 4/5 knee extension MMT 08/13/23: 4/5 knee extension 07/14/23, 07/04/24: 4/5 knee ext MMT; functionally limited during step up, squat LTG Duration 12 weeks PROGRESSING, NOT MET Two Impairment ROM Impairment Knee ext 10 deg AROM (lacking) Short Term Goal (STG) Pt will improve L knee ext to at least 5 deg AROM in order to reach terminal knee extension during gait and improve knee stability during stairs/gait. 05/30/23: -5 deg knee ext but demos decreased quad activation STG Duration 6 weeks MET Client Services Vice President Goal (LTG) Pt will improve L knee ext to at least 1 deg in order to reach terminal knee extension during gait and improve knee stabiltiy during stairs/gait. 08/13/23: 0 deg extension 07/14/23: lacking 2 deg ext with quad set, heel elevated 07/04/23: 3 with quad set 06/26/23: 1 deg with quad set, heel elevated due to calf LTG Duration 12 weeks MET One Impairment ROM Impairment Knee flex 80 deg AROM Short Term Goal (STG) Pt will improve L knee flex to at least 100 deg AROM in order to demo improved knee flex ROM for stairs and gait. 06/16/23: 115 deg flex AROM 05/30/23: 110 deg flex AROM STG Duration 6 weeks MET Long-Term Goal (LTG) Pt will improve L knee flex to > 115 deg AROM in order to demo improved knee flex ROM for stairs, gait, and to be comparable to RLE. 09/09/23:; 118 deg flexion 08/13/23: 116 deg knee flexion 07/04/23: 115 AROM MET; updated to > 115 deg 06/26/23: MET- 115 deg AROM pre- mob 118 post-mob LTG Duration 12 weeks MET; goal updated Progress Towards Goals Progress Towards Goals Progressing Toward Goals,Goals Met Progress Comments Met all goals except 6 MWT distance (updated), knee extension strength. Reports decreased 50/80 vs last measured 53/80 LEFS score Assessment Summary Assessment Pt tolerated session well despite increased R knee pain post injection and L quad soreness. Her 6 MWT distance with 4ww is 796 ft, a slightly lower amount since last tested with 4WW in May. Continued with glute and L knee strengthening. Pt able to progress resistance of leg press, LAQ and HSC to cables. Pt demos improved balance and ability to take larger step with hip 3 way into all directions compared to previous session, relying less on trunk to compensate. Pt demos improved ability to perform TUG using both spc and 4ww, meeting goal using both devices with multiple reps. However, still demos increased trunk sway with turns and when using spc vs 4ww. Physical Therapy Plan Frequency and Duration Frequency of Treatment 2x/Week Duration of treatment (weeks) 8 Plan of Care Start Date 09/09/23 Plan of Care End Date 11/07/23 Therapeutic Interventions Therapeutic Interventions Aquatic Therapy,Balance Training,Gait Training,Home Exercise Program,Joint Mobilizations,Manual Therapy, Neuromuscular Re-education, Patient/Caregiver Education, Self-Care/Home Management,Soft Tissue Mobilization,Taping, Therapeutic Activities, Therapeutic Exercises Modalities Cold Pack/Ice Massage,Electric Stimulation,Hot Packs, Iontophoresis,Ultrasound, Vasopneumatic Devices Next Visit Focus/Plan Next Note Type Treatment Note Next Visit Plan cable LAQ (L only), standing HSC, hip 3 way update HEP Next session: step ups 6, squats, lunges, LAQ (cables), HSC, leg press POC: gait training with cane prn (hurdles), continue 6 step up with hinge and lateral , leg press, strengthening hip abd/glutes/quad with band. Balance training. Manual: soft tissue of quad, joint mobilizations prn, check ROM (knee flex) update HEP PN to extend POC on 09/08 update poc 09/08
--- NOTE | 2023-09-09 15:27 | PT.OPPOC ---
Physical, Occupational & Speech Therapy At [facility] Current Diagnoses Unilateral primary osteoarthritis, left knee (09/09/23) Visit Care Team Role Provider Type Fletcher Menezes MD Family Provider Physician Primary Care Provider Specialty: Family Practice Address: [address] [place] [address], [id number] Email: [email or web address] Jorge Patton MD Attending Provider Physician Referring Provider Specialty: Orthopedics Orthopedic Surgery Address: [address] [place] [address], [id number] Email: [email or web address] Plan Of Care PT-OP-T Assessment and Plan Start: 04/28/23 10:41 Freq: Status: Active Protocol: Document 09/09/23 11:18 NM (Rec: 09/09/23 12:06 NM [id number]) Physical Therapy Assessment Goals Seven Impairment gait Impairment Unable to complete 6 MWT at IE Short Term Goal (STG) Pt will be able to complete a 6 MWT using LRAD in order to demo improved gait mechanics and activity tolerance for community ambulation. 05/30/23: 798 ft with FWW STG Duration 6 weeks MET Hydroelectric Plant Maintainer Goal (LTG) Pt will improve 6 MWT distance >800 ft using LRAD in order to demo improved gait mechanics and activity tolerance for community ambulation. 07/14/23: 646 ft with spc, 2 standing rest breaks 08/13/23: 588 ft with spc, reports feels more stiff 09/01/23: 640 ft with spc, 1 standing rest break 09/08/23: 796 ft 4WW, no rest breaks LTG Duration 12 weeks NOT MET; goal updated Six Impairment function Impairment LEFS 10 Short Term Goal (STG) Pt will improve LEFS score by at least 9 points (MCID) in order to demo improved activity tolerance and strength. 05/30/23: 53/80 STG Duration 6 weeks MET Retirement Goal (LTG) Pt will improve LEFS score by at least 18 points (2 MCID) in order to demo improved activity tolerance and strength. 05/30/23: 53/80 09/09/23: 50/80 LTG Duration 12 weeks MET Five Impairment Balance, function Impairment TUG 41.5 sec with FWW Short Term Goal (STG) Pt will decrease TUG score time to at least 30 seconds or less using LRAD in order to demo improved balance during gait and transfers, to decrease fall risk. 07/04/23: 18.4 sec 05/30/23: 21 sec STG Duration 6 weeks MET Hydroelectric Plant Maintainer Goal (LTG) Pt will decrease TUG score time to at least 15 seconds or less using LRAD in order to demo improved balance during gait and transfers, to decrease fall risk. 08/13/23: 18 sec, 17 sec, 16 sec 07/14/23: 16 sec FWW, 18 sec spc 07/04/23: 18.4 sec 09/09/23: 15.8 and 13.6 sec with 4WW, 18 and 16 and 15 sec with spc LTG Duration 12 weeks MET Four Impairment strength Impairment Knee flex 3/5 Short Term Goal (STG) Pt will improve L knee flex strength to at least 4-/5 in order to perform stairs and for propulsion during gait. 05/30/23: 4/5 knee flex STG Duration 6 weeks MET Hydroelectric Plant Maintainer Goal (LTG) Pt will improve L knee flex strength to at least 4+/5 in order to perform stairs and for propulsion during gait. 08/13/23: 4+/5 knee flexion 07/14/23, 07/04/23: 4/5 knee flex MMT LTG Duration 12 weeks MET Three Impairment Strength Impairment Knee ext 3/5 Short Term Goal (STG) Pt will improve L knee ext strength to at least 4-/5 in order to demo improved quad control for stability and TKE for gait. 05/30/23: 4-/5 MMT STG Duration 6 weeks MET Hydroelectric Plant Maintainer Goal (LTG) Pt will improve L knee ext strength to at least 4+/5 in order to demo improved quad control for stability and TKE for gait. 09/09/23: 4/5 knee extension MMT 08/13/23: 4/5 knee extension 07/14/23, 07/04/24: 4/5 knee ext MMT; functionally limited during step up, squat LTG Duration 12 weeks PROGRESSING, NOT MET Two Impairment ROM Impairment Knee ext 10 deg AROM (lacking) Short Term Goal (STG) Pt will improve L knee ext to at least 5 deg AROM in order to reach terminal knee extension during gait and improve knee stability during stairs/gait. 05/30/23: -5 deg knee ext but demos decreased quad activation STG Duration 6 weeks MET Retirement Goal (LTG) Pt will improve L knee ext to at least 1 deg in order to reach terminal knee extension during gait and improve knee stabiltiy during stairs/gait. 08/13/23: 0 deg extension 07/14/23: lacking 2 deg ext with quad set, heel elevated 07/04/23: 3 with quad set 06/26/23: 1 deg with quad set, heel elevated due to calf LTG Duration 12 weeks MET One Impairment ROM Impairment Knee flex 80 deg AROM Short Term Goal (STG) Pt will improve L knee flex to at least 100 deg AROM in order to demo improved knee flex ROM for stairs and gait. 06/16/23: 115 deg flex AROM 05/30/23: 110 deg flex AROM STG Duration 6 weeks MET Hydroelectric Plant Maintainer Goal (LTG) Pt will improve L knee flex to > 115 deg AROM in order to demo improved knee flex ROM for stairs, gait, and to be comparable to RLE. 09/09/23:; 118 deg flexion 08/13/23: 116 deg knee flexion 07/04/23: 115 AROM MET; updated to > 115 deg 06/26/23: MET- 115 deg AROM pre- mob 118 post-mob LTG Duration 12 weeks MET; goal updated Progress Towards Goals Progress Towards Goals Progressing Toward Goals,Goals Met Progress Comments Met all goals except 6 MWT distance (updated), knee extension strength. Reports decreased 50/80 vs last measured 53/80 LEFS score Assessment Summary Assessment Pt has been seen April 2023 s/p L TKA. She is currently 4 .5 months post op. Pt continues to make improvments in B knee and hip strength. Her current knee flexion AROM is 118 deg; has full knee extension. Pt continues to be limited in ability to ambulate with less UE assistance when using 4ww or spc. Her 6 MWT distance is below both age and gender related norms (1765 ft ); pt able to ambulate faster and further with 4ww than spc, and is more stable. Her balance has improved, with a TUG score <15 seconds, indicating decreased fall risk . However, pt demonstrates poor single leg balance and strength with gait and stairs, indicating continued need for functional balance training. Pt continues to demonstrate limitations in BLE strength, particularly glute strength and knee extension. Pt has recently been having low back pain and has history of stenosis, which may be impacting her strength further . Pt would benefit from additional skilled PT for progressive BLE strengthening, gait and balance training in order to maximize independence , decrease fall risk, and improve ability to perform ADLs. Physical Therapy Plan Frequency and Duration Frequency of Treatment 2x/Week Duration of treatment (weeks) 8 Plan of Care Start Date 09/09/23 Plan of Care End Date 11/07/23 Therapeutic Interventions Therapeutic Interventions Aquatic Therapy,Balance Training,Gait Training,Home Exercise Program,Joint Mobilizations,Manual Therapy, Neuromuscular Re-education, Patient/Caregiver Education, Self-Care/Home Management,Soft Tissue Mobilization,Taping, Therapeutic Activities, Therapeutic Exercises Modalities Cold Pack/Ice Massage,Electric Stimulation,Hot Packs, Iontophoresis,Ultrasound, Vasopneumatic Devices Next Visit Focus/Plan Next Note Type Treatment Note Next Visit Plan cable LAQ (L only), standing HSC, hip 3 way update HEP Next session: step ups 6, squats, lunges, LAQ (cables), HSC, leg press POC: gait training with cane prn (hurdles), continue 6 step up with hinge and lateral , leg press, strengthening hip abd/glutes/quad with band. Balance training. Manual: soft tissue of quad, joint mobilizations prn, check ROM (knee flex) update HEP PN to extend POC on 09/08 update poc 09/08 Plan of Care Dates Plan of Care Start Date 09/09/23 Plan of Care End Date 11/07/23 Electronically Signed by: Enid Cunningham, PT 09/10/23 0939 If you are in agreement with this Plan of Care, please return a signed and dated copy. I have reviewed this Plan of Care and certify that the skilled therapy services above are required to meet the patient?s needs. Physician Signature Date Printed Name and Credentials Clinical Instructor Signature Printed Name and Credentials
--- NOTE | 2023-09-11 16:19 | PT.OTN ---
Current Diagnoses Unilateral primary osteoarthritis, left knee (09/11/23) Physical Therapy Treatment Note PT-OP-A Visit Information Start: 04/28/23 10:41 Freq: Status: Active Protocol: Document 09/11/23 13:04 SW (Rec: 09/11/23 13:53 SW [id number]) Out-Patient Physical Therapy Visit Information Visit Information Visit Start Time 13:02 Visit Stop Time 13:42 Visit Number 29 Number of ADMINISTRATIVE AIDE Visits 1 PT-OP-B Current Condition Start: 04/28/23 10:41 Freq: Status: Active Protocol: Document 04/28/23 10:42 NM (Rec: 04/28/23 11:40 NM [id number]) Current Condition History of Current Condition Onset Date 04/18/23 Current Complaints pain, swelling, sleep History of Current Condition Pt presents to clinic with FWW s/p L TKA on 04/19. She is seeing Dr. Patton for her knee. Currently, pt still has her post-op dressings still on and is WBAT with a FWW. Pt has B knee OA, which led to the replacement. She had no pre-op PT. Prior to surgery, she was able to ambulate up to 1/4 mi due to pain, which is a decrease from her baseline which was 1 mi. She is planning on having the R knee replaced in a few months. Pt has steps leading up to her home which is covered by a ramp. She used a FWW for gait prior to surgery due to feeling like she had poor balance; she also has a spc that she uses occasional (not since surgery). Pt reports compliance with HEP from hospital, performing exercises 1-2x/day. She does report some tingling in her LLE down to her foot, but this was occuring prior to her TKA. Her main compliants are pain, weakness, swelling, stiffness, and poor sleep since her surgery. Future Testing and Treatments Planned Follow up 04/[address] Patton Treatment Goals Patient/Caregiver Goals Decrease pain, improve knee motion and strength, be able to sleep without discomfort Prior Functional Status Baseline Function- ADL's Independent Baseline Function- Mobility Independent Baseline Function- Gait FWW or spc for balance; up to 1/4 mi for gait distance Baseline Function- Recreation/Hobbies Gardening (hands and knees) Baseline Function- Other Stairs (no issue) Current Functional Impairments (Reported) Functional Limitations- Mobility/Gait No stairs due to limited motion and pain, no more than household ambulation Functional Limitations- Recreation/ Unable to garden Hobbies PT-OP-C Subjective Start: 04/28/23 10:41 Freq: Status: Active Protocol: Document 09/11/23 13:04 SW (Rec: 09/11/23 13:53 SW [id number]) OP-PT Subjective Patient Comments Patient Comments Pt reports seeing doctor for injection in R knee, helped some. Pt saw Dr. Freedman about getting injection in back for numbness. Pain still present in L quad. PT-OP-D Balance Start: 04/28/23 10:41 Freq: Status: Active Protocol: Document 04/28/23 10:42 NM (Rec: 04/28/23 11:56 NM [id number]) OP-PT Balance Assessment Sitting Balance Static Sitting Balance Ability Normal Dynamic Sitting Balance Ability Normal Standing Balance Static Standing Balance Ability Good Dynamic Standing Balance Ability Fair Device Used FWW Standing Balance Comments Occasional CGA to steady during gait, changing JUVENCIO Denise Fall Scale Copyright Permission PT-OP-E Functional Tests Start: 04/28/23 10:41 Freq: Status: Active Protocol: Document 04/28/23 10:42 NM (Rec: 04/28/23 11:40 NM [id number]) Functional Tests Timed Up and Go (TUG) Score 41.5 sec Comments FWW, SBA PT-OP-F Manual Assessment Start: 04/28/23 10:41 Freq: Status: Active Protocol: Document 04/28/23 10:42 NM (Rec: 04/28/23 11:40 NM [id number]) Manual Assessments Soft Tissue Assessment Soft Tissue Mobility Assessment Soft tissue restrictions of L hamstring. Edema in L ankle, knee and calf. Will need scar mobilization to prevent adhesions once scar is closed and healed. Joint Mobility Assessment Joint Mobility Assessment Empty end feel with PROM, limited mobility PT-OP-G Mobility & Gait Start: 04/28/23 10:41 Freq: Status: Active Protocol: Document 04/28/23 10:42 NM (Rec: 04/28/23 11:40 NM [id number]) OP Gait Assessment Gait Gait Assistance Required: Standby Assistance Distance (Feet) 200 Able to Maintain Weight Bearing Status Yes During Gait Assistive Devices Assistive Device Gait Belt,Straight Cane,Front Wheeled Walker Gait Deviations General Gait Pattern Antalgic,Decreased Stride Length,Step-to Gait Factors Limiting Gait Function Factors Limiting Gait Function Decreased Activity Tolerance, Decreased Strength,Limited Range of Motion,Pain,Poor Balance Comments Gait Comments Primarily uses FWW for gait. Began using FWW for gait prior in Jun 2022 prior to surgery due to poor balance. PT-OP-H Neuro Start: 04/28/23 10:41 Freq: Status: Active Protocol: Document 04/28/23 10:42 NM (Rec: 04/28/23 11:40 NM [id number]) Sensation Evaluation Gross Sensation Gross Sensation WNL Comments Summary Comments LLE intact to light touch sensation in all dermatomes. PT-OP-J Posture/Palpation/Skin Start: 04/28/23 10:41 Freq: Status: Active Protocol: Document 04/28/23 10:42 NM (Rec: 04/28/23 11:40 NM [id number]) Posture Evaluation Position Standing Evaluation View Posterior Pelvis Posture Anteriorly Tilted Weight Distribution Weight Shifted Right,Decreased Wt.Bear on (L) Hip Posture (L) Externally Rotated Knee Posture (L) Genu Valgus,(R) Genu Valgus Patellar Posture (R) Superior Palpation Assessment Location L knee Palpation Location posterior knee, posterior calf , lateral and medial knee Palpation Findings Edema,Soft Tissue Tightness, Tenderness Palpation Details Tenderness and edema along posterior knee and calf. No sign of DVT Tenderness and edema along medial and lateral knee near patella, femoral condyles near joint line Skin Assessment Edema Assessment L ankle Edema Type Non-Pitting Edema Degree 2+ Edema Appearance Discolored,Puffy Circumference Measurement L knee Location 5 cm above patella (60cm), sub patella (51 cm), 10 cm below patella (49 cm) Comments L malleoli (27 cm) with excess on lateral side, at patella ( 56.5 cm) Incisional Assessment Incision Appearance/Comments Bandage is CDI. Still wrapped so could not formally assess incision. No signs of infection around bandage. Will assess further once bandage removed PT-OP-K Range of Motion Start: 04/28/23 10:41 Freq: Status: Active Protocol: Document 09/09/23 11:18 NM (Rec: 09/09/23 16:14 NM [id number]) Knee Goniometric Range of Motion Knee Left Knee ROM WFL No Patient Position Supine Flexion Active (degrees) 115 Flexion Passive (degrees) 115 Extension Active (degrees) 2 Extension Passive (degrees) 1 Comments 09/09/23: 118 deg flexion 08/13/23: 116 flexion, 0 deg extension 07/14/23: 115 deg flex, 2 deg ext lacking 07/04/23: lacks 3 deg ext with active quad contraction; 115 AROM knee flex 05/30/23: 110 deg flex AROM, 5 deg ext AROM 05/30/23: lacking 5 deg ext with active quad contraction @IE: flex 80 deg ext -10 deg PT-OP-M Strength Start: 04/28/23 10:41 Freq: Status: Active Protocol: Document 09/09/23 11:18 NM (Rec: 09/09/23 16:14 NM [id number]) Knee Strength Knee Manual Muscle Testing Left Flexion (S2) 4+ Good+ Extension (L3) 4 Good Comments 09/09/23: 4/5 knee ext, 4+/5 knee flex 08/13/23: 4+/5 for flex, 4/5 ext 07/04/23: 4/5, no pain with resisted motion 05/30/23: 4/5 flex, 4-/5 ext @ IE: flex and ext 3/5 PT-OP-Q Treatments Start: 04/28/23 10:41 Freq: Status: Active Protocol: Document 09/11/23 13:04 SW (Rec: 09/11/23 13:53 SW [id number]) Gym Equipment Cable Column (Body Solid) knee extension Details L only; challenging Resistance 1 plate Reps/Time 2x10 HS curl Details L only; challenging Resistance 2 plate Reps/Time 2x10 Shuttle Recovery Unilateral Squats Details L knee Resistance 50 # 2 navy Shuttle Recovery Platform Stable Reps/Time 2x15 Bilateral Squats Details B squats Resistance 75# (3 navy) Shuttle Recovery Platform Stable Reps/Time 2x15; medium hard Therapeutic Exercises Standing Exercises hip 3 way Side bilateral Resistance lvl 2 teal tb around thighs Equipment Used 1 hand support on //bar for balance Reps/Minutes 1x10 ea Comments pain free; added to HEP Neuro Re-Education Treatment Balance Activities Foam ambulation Equipment Foam pads, w/ airex at end and black theraband pad at end Comments Foam Ambulation, balance on foam EC at end, marching w/ arms across chest marching on blue cushion Details hands above parallel bars Reps/Duration X12 Comments CGA tandem stepping Details hands above parallel bars Reps/Duration 10 feet X3 Comments CGA SLS left LE Details hands above parallel bars Surface floor Reps/Duration X5 Comments CGA PT-OP-R Modalities Start: 05/30/23 15:01 Freq: Status: Active Protocol: Document 05/30/23 13:54 NM (Rec: 05/30/23 15:07 NM [id number]) Electric Stimulation Electric Stimulation Biphasic Body Location L quad Duration (Minutes) 10 Intensity 18 Frequency 50 Pulse Width 300 Contraction Type Normal Ramp 1.0 Comments 5/5 cycle due to time to maximize contractions Performed in sitting (LAQ), supine (quad sets, SAQ). Skin normal color, intact/dry before, during, after tmt. Skin check after 3 min and at end of session. PT-OP-T Assessment and Plan Start: 04/28/23 10:41 Freq: Status: Active Protocol: Document 09/11/23 13:04 SW (Rec: 09/11/23 13:53 SW [id number]) Physical Therapy Assessment Goals Seven Impairment gait Impairment Unable to complete 6 MWT at IE Short Term Goal (STG) Pt will be able to complete a 6 MWT using LRAD in order to demo improved gait mechanics and activity tolerance for community ambulation. 05/30/23: 798 ft with FWW STG Duration 6 weeks MET Auditing Control Clerk Goal (LTG) Pt will improve 6 MWT distance >800 ft using LRAD in order to demo improved gait mechanics and activity tolerance for community ambulation. 07/14/23: 646 ft with spc, 2 standing rest breaks 08/13/23: 588 ft with spc, reports feels more stiff 09/01/23: 640 ft with spc, 1 standing rest break 09/08/23: 796 ft 4WW, no rest breaks LTG Duration 12 weeks NOT MET; goal updated Six Impairment function Impairment LEFS Short Term Goal (STG) Pt will improve LEFS score by at least 9 points (MCID) in order to demo improved activity tolerance and strength. 05/30/23: 53/80 STG Duration 6 weeks MET [facility] Living Goal (LTG) Pt will improve LEFS score by at least 18 points (2 MCID) in order to demo improved activity tolerance and strength. 05/30/23: 53/80 09/09/23: 50/80 LTG Duration 12 weeks MET Five Impairment Balance, function Impairment TUG 41.5 sec with FWW Short Term Goal (STG) Pt will decrease TUG score time to at least 30 seconds or less using LRAD in order to demo improved balance during gait and transfers, to decrease fall risk. 07/04/23: 18.4 sec 05/30/23: 21 sec STG Duration 6 weeks MET Auditing Control Clerk Goal (LTG) Pt will decrease TUG score time to at least 15 seconds or less using LRAD in order to demo improved balance during gait and transfers, to decrease fall risk. 08/13/23: 18 sec, 17 sec, 16 sec 07/14/23: 16 sec FWW, 18 sec spc 07/04/23: 18.4 sec 09/09/23: 15.8 and 13.6 sec with 4WW, 18 and 16 and 15 sec with spc LTG Duration 12 weeks MET Four Impairment strength Impairment Knee flex 35 Short Term Goal (STG) Pt will improve L knee flex strength to at least 4-/5 in order to perform stairs and for propulsion during gait. 05/30/23: 4/5 knee flex STG Duration 6 weeks MET [facility] Goal (LTG) Pt will improve L knee flex strength to at least 4+/5 in order to perform stairs and for propulsion during gait. 08/13/23: 4+/5 knee flexion 07/14/23, 07/04/23: 4/5 knee flex MMT LTG Duration 12 weeks MET Three Impairment Strength Impairment Knee ext 3/5 Short Term Goal (STG) Pt will improve L knee ext strength to at least 4-/5 in order to demo improved quad control for stability and TKE for gait. 05/30/23: 4-/5 MMT STG Duration 6 weeks MET Auditing Control Clerk Goal (LTG) Pt will improve L knee ext strength to at least 4+/5 in order to demo improved quad control for stability and TKE for gait. 09/09/23: 4/5 knee extension MMT 08/13/23: 4/5 knee extension 07/14/23, 07/04/24: 4/5 knee ext MMT; functionally limited during step up, squat LTG Duration 12 weeks PROGRESSING, NOT MET Two Impairment ROM Impairment Knee ext 10 deg AROM (lacking) Short Term Goal (STG) Pt will improve L knee ext to at least 5 deg AROM in order to reach terminal knee extension during gait and improve knee stability during stairs/gait. 05/30/23: -5 deg knee ext but demos decreased quad activation STG Duration 6 weeks MET [facility] Goal (LTG) Pt will improve L knee ext to at least 1 deg in order to reach terminal knee extension during gait and improve knee stabiltiy during stairs/gait. 08/13/23: 0 deg extension 07/14/23: lacking 2 deg ext with quad set, heel elevated 07/04/23: 3 with quad set 06/26/23: 1 deg with quad set, heel elevated due to calf LTG Duration 12 weeks MET One Impairment ROM Impairment Knee flex 80 deg AROM Short Term Goal (STG) Pt will improve L knee flex to at least 100 deg AROM in order to demo improved knee flex ROM for stairs and gait. 06/16/23: 115 deg flex AROM 05/30/23: 110 deg flex AROM STG Duration 6 weeks MET [facility] Living Goal (LTG) Pt will improve L knee flex to > 115 deg AROM in order to demo improved knee flex ROM for stairs, gait, and to be comparable to RLE. 09/09/23:; 118 deg flexion 08/13/23: 116 deg knee flexion 07/04/23: 115 AROM MET; updated to > 115 deg 06/26/23: MET- 115 deg AROM pre- mob 118 post-mo LTG Duration 12 weeks MET; goal updated Assessment Summary Assessment Continued focus on strengthening this session, pt continues to be challenged with cable and leg press strength, denies pain. Pt quick to fatigue, seat rest breaks for mm recovery throughout session. Pt continues to have pain in L quad, pt continues to do STM with rolling pin at home, reports it helps a little, but not alot. Patient tolerated session well, pt reports feeling better and looser post session. Physical Therapy Plan Frequency and Duration Frequency of Treatment 2x/Week Duration of treatment (weeks) 8 Plan of Care Start Date 09/09/23 Plan of Care End Date 11/07/23 Therapeutic Interventions Therapeutic Interventions Aquatic Therapy,Balance Training,Gait Training,Home Exercise Program,Joint Mobilizations,Manual Therapy, Neuromuscular Re-education, Patient/Caregiver Education, Self-Care/Home Management,Soft Tissue Mobilization,Taping, Therapeutic Activities, Therapeutic Exercises Modalities Cold Pack/Ice Massage,Electric Stimulation,Hot Packs, Iontophoresis,Ultrasound, Vasopneumatic Devices Next Visit Focus/Plan Next Note Type Treatment Note Next Visit Plan cable LAQ (L only), standing HSC, hip 3 way update HEP Next session: step ups 6, squats, lunges, LAQ (cables), HSC, leg press POC: gait training with cane prn (hurdles), continue 6 step up with hinge and lateral , leg press, strengthening hip abd/glutes/quad with band. Balance training. Manual: soft tissue of quad, joint mobilizations prn, check ROM (knee flex) update HEP PN to extend POC on 09/08 update poc 09/08
--- NOTE | 2023-09-15 15:33 | PT.OTN ---
Current Diagnoses Unilateral primary osteoarthritis, left knee (09/15/23) Physical Therapy Treatment Note PT-OP-A Visit Information Start: 04/28/23 10:41 Freq: Status: Active Protocol: Document 09/15/23 14:29 NM (Rec: 09/15/23 15:33 NM [id number]) Out-Patient Physical Therapy Visit Information Visit Information Visit Type Treatment Note Visit Start Time 14:30 Visit Stop Time 15:15 Visit Number 30 Evaluation Information Evaluation Date 04/28/23 PT-OP-B Current Condition Start: 04/28/23 10:41 Freq: Status: Active Protocol: Document 04/28/23 10:42 NM (Rec: 04/28/23 11:40 NM [id number]) Current Condition History of Current Condition Onset Date 04/18/23 Current Complaints pain, swelling, sleep History of Current Condition Pt presents to clinic with FWW s/p L TKA on 04/19. She is seeing Dr. Patton for her knee. Currently, pt still has her post-op dressings still on and is WBAT with a FWW. Pt has B knee OA, which led to the replacement. She had no pre-op PT. Prior to surgery, she was able to ambulate up to 1/4 mi due to pain, which is a decrease from her baseline which was 1 mi. She is planning on having the R knee replaced in a few months. Pt has steps leading up to her home which is covered by a ramp. She used a FWW for gait prior to surgery due to feeling like she had poor balance; she also has a spc that she uses occasional (not since surgery). Pt reports compliance with HEP from hospital, performing exercises 1-2x/day. She does report some tingling in her LLE down to her foot, but this was occuring prior to her TKA. Her main compliants are pain, weakness, swelling, stiffness, and poor sleep since her surgery. Future Testing and Treatments Planned Follow up 04/[address] Patton Treatment Goals Patient/Caregiver Goals Decrease pain, improve knee motion and strength, be able to sleep without discomfort Prior Functional Status Baseline Function- ADL's Independent Baseline Function- Mobility Independent Baseline Function- Gait FWW or spc for balance; up to 1/4 mi for gait distance Baseline Function- Recreation/Hobbies Gardening (hands and knees) Baseline Function- Other Stairs (no issue) Current Functional Impairments (Reported) Functional Limitations- Mobility/Gait No stairs due to limited motion and pain, no more than household ambulation Functional Limitations- Recreation/ Unable to garden Hobbies PT-OP-C Subjective Start: 04/28/23 10:41 Freq: Status: Active Protocol: Document 09/15/23 14:29 NM (Rec: 09/15/23 15:33 NM [id number]) OP-PT Subjective Patient Comments Patient Comments Pt reports L quad is still tight, sore. States waiting to see Dr. Saavedra for back injection. Continues to have numbness/tingling LLE (entire leg). Performing HEP without issues PT-OP-D Balance Start: 04/28/23 10:41 Freq: Status: Active Protocol: Document 04/28/23 10:42 NM (Rec: 04/28/23 11:56 NM [id number]) OP-PT Balance Assessment Sitting Balance Static Sitting Balance Ability Normal Dynamic Sitting Balance Ability Normal Standing Balance Static Standing Balance Ability Good Dynamic Standing Balance Ability Fair Device Used FWW Standing Balance Comments Occasional CGA to steady during gait, changing JUVENCIO Denise Fall Scale Copyright Permission PT-OP-E Functional Tests Start: 04/28/23 10:41 Freq: Status: Active Protocol: Document 04/28/23 10:42 NM (Rec: 04/28/23 11:40 NM [id number]) Functional Tests Timed Up and Go (TUG) Score 41.5 sec Comments FWW, SBA PT-OP-F Manual Assessment Start: 04/28/23 10:41 Freq: Status: Active Protocol: Document 04/28/23 10:42 NM (Rec: 04/28/23 11:40 NM [id number]) Manual Assessments Soft Tissue Assessment Soft Tissue Mobility Assessment Soft tissue restrictions of L hamstring. Edema in L ankle, knee and calf. Will need scar mobilization to prevent adhesions once scar is closed and healed. Joint Mobility Assessment Joint Mobility Assessment Empty end feel with PROM, limited mobility PT-OP-G Mobility & Gait Start: 04/28/23 10:41 Freq: Status: Active Protocol: Document 04/28/23 10:42 NM (Rec: 04/28/23 11:40 NM [id number]) OP Gait Assessment Gait Gait Assistance Required: Standby Assistance Distance (Feet) 200 Able to Maintain Weight Bearing Status Yes During Gait Assistive Devices Assistive Device Gait Belt,Straight Cane,Front Wheeled Walker Gait Deviations General Gait Pattern Antalgic,Decreased Stride Length,Step-to Gait Factors Limiting Gait Function Factors Limiting Gait Function Decreased Activity Tolerance, Decreased Strength,Limited Range of Motion,Pain,Poor Balance Comments Gait Comments Primarily uses FWW for gait. Began using FWW for gait prior in Jun 2022 prior to surgery due to poor balance. PT-OP-H Neuro Start: 04/28/23 10:41 Freq: Status: Active Protocol: Document 04/28/23 10:42 NM (Rec: 04/28/23 11:40 NM [id number]) Sensation Evaluation Gross Sensation Gross Sensation WNL Comments Summary Comments LLE intact to light touch sensation in all dermatomes. PT-OP-J Posture/Palpation/Skin Start: 04/28/23 10:41 Freq: Status: Active Protocol: Document 04/28/23 10:42 NM (Rec: 04/28/23 11:40 NM [id number]) Posture Evaluation Position Standing Evaluation View Posterior Pelvis Posture Anteriorly Tilted Weight Distribution Weight Shifted Right,Decreased Wt.Bear on (L) Hip Posture (L) Externally Rotated Knee Posture (L) Genu Valgus,(R) Genu Valgus Patellar Posture (R) Superior Palpation Assessment Location L knee Palpation Location posterior knee, posterior calf , lateral and medial knee Palpation Findings Edema,Soft Tissue Tightness, Tenderness Palpation Details Tenderness and edema along posterior knee and calf. No sign of DVT Tenderness and edema along medial and lateral knee near patella, femoral condyles near joint line Skin Assessment Edema Assessment L ankle Edema Type Non-Pitting Edema Degree 2+ Edema Appearance Discolored,Puffy Circumference Measurement L knee Location 5 cm above patella (60cm), sub patella (51 cm), 10 cm below patella (49 cm) Comments L malleoli (27 cm) with excess on lateral side, at patella ( 56.5 cm) Incisional Assessment Incision Appearance/Comments Bandage is CDI. Still wrapped so could not formally assess incision. No signs of infection around bandage. Will assess further once bandage removed PT-OP-K Range of Motion Start: 04/28/23 10:41 Freq: Status: Active Protocol: Document 09/09/23 11:18 NM (Rec: 09/09/23 16:14 NM [id number]) Knee Goniometric Range of Motion Knee Left Knee ROM WFL No Patient Position Supine Flexion Active (degrees) 115 Flexion Passive (degrees) 115 Extension Active (degrees) 2 Extension Passive (degrees) 1 Comments 09/09/23: 118 deg flexion 08/13/23: 116 flexion, 0 deg extension 07/14/23: 115 deg flex, 2 deg ext lacking 07/04/23: lacks 3 deg ext with active quad contraction; 115 AROM knee flex 05/30/23: 110 deg flex AROM, 5 deg ext AROM 05/30/23: lacking 5 deg ext with active quad contraction @IE: flex 80 deg ext -10 deg PT-OP-M Strength Start: 04/28/23 10:41 Freq: Status: Active Protocol: Document 09/09/23 11:18 NM (Rec: 09/09/23 16:14 NM [id number]) Knee Strength Knee Manual Muscle Testing Left Flexion (S2) 4+ Good+ Extension (L3) 4 Good Comments 09/09/23: 4/5 knee ext, 4+/5 knee flex 08/13/23: 4+/5 for flex, 4/5 ext 07/04/23: 4/5, no pain with resisted motion 05/30/23: 4/5 flex, 4-/5 ext @ IE: flex and ext 3/5 PT-OP-Q Treatments Start: 04/28/23 10:41 Freq: Status: Active Protocol: Document 09/15/23 14:29 NM (Rec: 09/15/23 15:33 NM [id number]) Cardio Equipment Recumbent Bicycle Duration (Minutes) 4 Resistance 0 Seat Position 2 Other warm up Gym Equipment Shuttle Recovery Bilateral Squats Details B squats Resistance 87# (3 navy) Shuttle Recovery Platform Stable Reps/Time 3x10; medium-hard Therapeutic Exercises Standing Exercises Lunge Standing Exercise Name moving lunge (both knees flexing) Side bilateral Resistance AROM Equipment Used ballet bar 1 UE flat support for balance/opp LE fwd Reps/Minutes 1x10 ea Comments improved B knee flex, cued neutral toes Step up Standing Exercise Name 1. 6 step up fwd/bwd, 2. 4 lateral step up Side left Equipment Used 1 rail use, flat hand R Reps/Minutes 2x10 ea Comments cued for hip hinge, strong glute/quad, DF on RLE, full step on LLE Manual Therapy Treatment Soft Tissue Mobilization L knee Body Location quad, peripatellar area and for swelling Mobilization Type Cross-Friction,Rolling,Other Intensity/Depth Moderate Body Position Hooklying Comments Decreased tenderness of quad/ hip flexors, compared to previous sessions. 120 deg knee flexion after stretching quad Manual Techniques manual stretch Comments Quad in sidelying, 2x60. PT blocking at hip, with knee flex to pt tolerance. Pain free, reports feels good Neuro Re-Education Treatment Balance Activities squats Details close SBA Equipment airex pad Reps/Duration 2 finger support ea hand Comments 1x10 Pain free, requires increased time. Cued more hip hinge and knee flexion lateral lunge Details close SBA Surface moving LE onto foam pad Equipment airex pad Reps/Duration 2 hand support (flat hand) Comments 1x10 ea Pain free. Cued more hip hinge , step on/off marching on blue cushion Details hands above parallel bars Equipment foam airex pad Reps/Duration 1x12 ea Comments CGA Challenged with weight shift onto stance LE while maintaining JUVENCIO PT-OP-R Modalities Start: 05/30/23 15:01 Freq: Status: Active Protocol: Document 05/30/23 13:54 NM (Rec: 05/30/23 15:07 NM [id number]) Electric Stimulation Electric Stimulation Biphasic Body Location L quad Duration (Minutes) 10 Intensity 18 Frequency 50 Pulse Width 300 Contraction Type Normal Ramp 1.0 Comments 5/5 cycle due to time to maximize contractions Performed in sitting (LAQ), supine (quad sets, SAQ). Skin normal color, intact/dry before, during, after tmt. Skin check after 3 min and at end of session. PT-OP-T Assessment and Plan Start: 04/28/23 10:41 Freq: Status: Active Protocol: Document 09/15/23 14:29 NM (Rec: 09/15/23 15:33 NM [id number]) Physical Therapy Assessment Goals Seven Impairment gait Impairment Unable to complete 6 MWT at IE Short Term Goal (STG) Pt will be able to complete a 6 MWT using LRAD in order to demo improved gait mechanics and activity tolerance for community ambulation. 05/30/23: 798 ft with FWW STG Duration 6 weeks MET Fdc Goal (LTG) Pt will improve 6 MWT distance >800 ft using LRAD in order to demo improved gait mechanics and activity tolerance for community ambulation. 07/14/23: 646 ft with spc, 2 standing rest breaks 08/13/23: 588 ft with spc, reports feels more stiff 09/01/23: 640 ft with spc, 1 standing rest break 09/08/23: 796 ft 4WW, no rest breaks LTG Duration 12 weeks NOT MET; goal updated Six Impairment function Impairment LEFS Short Term Goal (STG) Pt will improve LEFS score by at least 9 points (MCID) in order to demo improved activity tolerance and strength. 05/30/23: 5380 STG Duration 6 weeks MET Fdc Goal (LTG) Pt will improve LEFS score by at least 18 points (2 MCID) in order to demo improved activity tolerance and strength. 05/30/23: 5309/09/23: 50/80 LTG Duration 12 weeks MET Five Impairment Balance, function Impairment TUG 41.5 sec with FWW Short Term Goal (STG) Pt will decrease TUG score time to at least 30 seconds or less using LRAD in order to demo improved balance during gait and transfers, to decrease fall risk. 07/04/23: 18.4 sec 05/30/23: 21 sec STG Duration 6 weeks MET Fdc Goal (LTG) Pt will decrease TUG score time to at least 15 seconds or less using LRAD in order to demo improved balance during gait and transfers, to decrease fall risk. 08/13/23: 18 sec, 17 sec, 16 sec 07/14/23: 16 sec FWW, 18 sec spc 07/04/23: 18.4 sec 09/09/23: 15.8 and 13.6 sec with 4WW, 18 and 16 and 15 sec with spc LTG Duration 12 weeks MET Four Impairment strength Impairment Knee flex 3/5 Short Term Goal (STG) Pt will improve L knee flex strength to at least 4-/5 in order to perform stairs and for propulsion during gait. 05/30/23: 4/5 knee flex STG Duration 6 weeks MET Resource Engineer Goal (LTG) Pt will improve L knee flex strength to at least 4+/5 in order to perform stairs and for propulsion during gait. 08/13/23: 4+/5 knee flexion 07/14/23, 07/04/23: 4/5 knee flex MMT LTG Duration 12 weeks MET Three Impairment Strength Impairment Knee ext 3/5 Short Term Goal (STG) Pt will improve L knee ext strength to at least 4-/5 in order to demo improved quad control for stability and TKE for gait. 05/30/23: 4-/5 MMT STG Duration 6 weeks MET Fdc Goal (LTG) Pt will improve L knee ext strength to at least 4+/5 in order to demo improved quad control for stability and TKE for gait. 09/09/23: 4/5 knee extension MMT 08/13/23: 4/5 knee extension 07/14/23, 07/04/24: 4/5 knee ext MMT; functionally limited during step up, squat LTG Duration 12 weeks PROGRESSING, NOT MET Two Impairment ROM Impairment Knee ext 10 deg AROM (lacking) Short Term Goal (STG) Pt will improve L knee ext to at least 5 deg AROM in order to reach terminal knee extension during gait and improve knee stability during stairs/gait. 05/30/23: -5 deg knee ext but demos decreased quad activation STG Duration 6 weeks MET Fdc Goal (LTG) Pt will improve L knee ext to at least 1 deg in order to reach terminal knee extension during gait and improve knee stabiltiy during stairs/gait. 08/13/23: 0 deg extension 07/14/23: lacking 2 deg ext with quad set, heel elevated 07/04/23: 3 with quad set 06/26/23: 1 deg with quad set, heel elevated due to calf LTG Duration 12 weeks MET One Impairment ROM Impairment Knee flex 80 deg AROM Short Term Goal (STG) Pt will improve L knee flex to at least 100 deg AROM in order to demo improved knee flex ROM for stairs and gait. 06/16/23: 115 deg flex AROM 05/30/23: 110 deg flex AROM STG Duration 6 weeks MET Fdc Goal (LTG) Pt will improve L knee flex to > 115 deg AROM in order to demo improved knee flex ROM for stairs, gait, and to be comparable to RLE. 09/15/23: 120 deg flexion 09/09/23:; 118 deg flexion 08/13/23: 116 deg knee flexion 07/04/23: 115 AROM MET; updated to > 115 deg 06/26/23: MET- 115 deg AROM pre- mob 118 post-mo LTG Duration 12 weeks MET; goal updated Assessment Summary Assessment Pt with good effort and activity tolerance this session. Requires increased time with activity. Currently, L knee flexion 120 deg. Pt continues to report improvement in L quad tightness and tenderness with stretching and soft tissue mobilization. Trialed standing hip flexor stretch at stairs for further stretching of hip flexors as part of HEP. Progressed B squat resistance on leg press and number of reps; pt tolerated well without any increased LLE discomfort. Progressed to stepping forward lunge for both balance progression and hip/quad strengthening. Pt continues to require at least 1 hand assistance with lunge or step up. However, demos improved glute strength, upright posture, and less UE assistance with 6 step up and 4 lateral step up. Cued less UE support, hip hinge for glute activation. During balance training, pt challenged by unstable surface and performing weight shifts while maintaining stable JUVENCIO. Able to perform squats and lateral lunges with unstable surface and moving JUVENCIO with close SBA only and UE support. PT and pt discussed pt using spc more frequently at home vs 4ww as that is her goal to return to during ambulation and she feels safe. Pt would benefit from skilled PT for progressive BLE strengthening, balance, and gait training in order to improve activity tolerance, decrease fall risk, and improve ability to perform ADLs. Physical Therapy Plan Frequency and Duration Frequency of Treatment 2x/Week Duration of treatment (weeks) 8 Plan of Care Start Date 09/09/23 Plan of Care End Date 11/07/23 Therapeutic Interventions Therapeutic Interventions Aquatic Therapy,Balance Training,Gait Training,Home Exercise Program,Joint Mobilizations,Manual Therapy, Neuromuscular Re-education, Patient/Caregiver Education, Self-Care/Home Management,Soft Tissue Mobilization,Taping, Therapeutic Activities, Therapeutic Exercises Modalities Cold Pack/Ice Massage,Electric Stimulation,Hot Packs, Iontophoresis,Ultrasound, Vasopneumatic Devices Next Visit Focus/Plan Next Note Type Treatment Note Next Visit Plan Plan of care: continue with glute/quad strengthening and functional balance. Progress exercises and update HEP. Goal - independent and confident with spc, stairs Continue: leg press, cable LAQ (L only), hip 3 way (trial foam or slider), 6 step up, lateral 4 step up, functional balance training. Manual STM/ mobilization prn POC: gait training with cane prn (hurdles), continue 6 step up with hinge and lateral , leg press, strengthening hip abd/glutes/quad with band. Balance training.
--- NOTE | 2023-09-19 16:52 | PT.OTN ---
Current Diagnoses Unilateral primary osteoarthritis, left knee (09/19/23) Physical Therapy Treatment Note PT-OP-A Visit Information Start: 04/28/23 10:41 Freq: Status: Active Protocol: Document 09/19/23 15:22 NBM (Rec: 09/19/23 16:52 NBM [id number]) Out-Patient Physical Therapy Visit Information Visit Information Visit Type Treatment Note Visit Start Time 15:22 Visit Stop Time 16:02 Visit Number 31 Number of EMPLOYEE BENEFITS INSURANCE AGENT Visits 1 Evaluation Information Evaluation Date 04/28/23 PT-OP-B Current Condition Start: 04/28/23 10:41 Freq: Status: Active Protocol: Document 04/28/23 10:42 NM (Rec: 04/28/23 11:40 NM [id number]) Current Condition History of Current Condition Onset Date 04/18/23 Current Complaints pain, swelling, sleep History of Current Condition Pt presents to clinic with FWW s/p L TKA on 04/19. She is seeing Dr. Patton for her knee. Currently, pt still has her post-op dressings still on and is WBAT with a FWW. Pt has B knee OA, which led to the replacement. She had no pre-op PT. Prior to surgery, she was able to ambulate up to 1/4 mi due to pain, which is a decrease from her baseline which was 1 mi. She is planning on having the R knee replaced in a few months. Pt has steps leading up to her home which is covered by a ramp. She used a FWW for gait prior to surgery due to feeling like she had poor balance; she also has a spc that she uses occasional (not since surgery). Pt reports compliance with HEP from hospital, performing exercises 1-2x/day. She does report some tingling in her LLE down to her foot, but this was occuring prior to her TKA. Her main compliants are pain, weakness, swelling, stiffness, and poor sleep since her surgery. Future Testing and Treatments Planned Follow up 04/[address] Patton Treatment Goals Patient/Caregiver Goals Decrease pain, improve knee motion and strength, be able to sleep without discomfort Prior Functional Status Baseline Function- ADL's Independent Baseline Function- Mobility Independent Baseline Function- Gait FWW or spc for balance; up to 1/4 mi for gait distance Baseline Function- Recreation/Hobbies Gardening (hands and knees) Baseline Function- Other Stairs (no issue) Current Functional Impairments (Reported) Functional Limitations- Mobility/Gait No stairs due to limited motion and pain, no more than household ambulation Functional Limitations- Recreation/ Unable to garden Hobbies PT-OP-C Subjective Start: 04/28/23 10:41 Freq: Status: Active Protocol: Document 09/19/23 15:22 NBM (Rec: 09/19/23 16:52 NBM [id number]) OP-PT Subjective Patient Comments Patient Comments Benita reports she's had L thigh pain for about a month that feels constant, tight and heavy. She's getting a steroid injection to spine . Knee is really feeling better and she suspects the L leg pain is related to the spinal stenosis. She did ex's today and helps with rolling pin and quad stretch. She thinks the STM is very helpful. PT-OP-D Balance Start: 04/28/23 10:41 Freq: Status: Active Protocol: Document 04/28/23 10:42 NM (Rec: 04/28/23 11:56 NM [id number]) OP-PT Balance Assessment Sitting Balance Static Sitting Balance Ability Normal Dynamic Sitting Balance Ability Normal Standing Balance Static Standing Balance Ability Good Dynamic Standing Balance Ability Fair Device Used FWW Standing Balance Comments Occasional CGA to steady during gait, changing JUVENCIO Denise Fall Scale Copyright Permission PT-OP-E Functional Tests Start: 04/28/23 10:41 Freq: Status: Active Protocol: Document 04/28/23 10:42 NM (Rec: 04/28/23 11:40 NM [id number]) Functional Tests Timed Up and Go (TUG) Score 41.5 sec Comments FWW, SBA PT-OP-F Manual Assessment Start: 04/28/23 10:41 Freq: Status: Active Protocol: Document 04/28/23 10:42 NM (Rec: 04/28/23 11:40 NM [id number]) Manual Assessments Soft Tissue Assessment Soft Tissue Mobility Assessment Soft tissue restrictions of L hamstring. Edema in L ankle, knee and calf. Will need scar mobilization to prevent adhesions once scar is closed and healed. Joint Mobility Assessment Joint Mobility Assessment Empty end feel with PROM, limited mobility PT-OP-G Mobility & Gait Start: 04/28/23 10:41 Freq: Status: Active Protocol: Document 04/28/23 10:42 NM (Rec: 04/28/23 11:40 NM [id number]) OP Gait Assessment Gait Gait Assistance Required: Standby Assistance Distance (Feet) 200 Able to Maintain Weight Bearing Status Yes During Gait Assistive Devices Assistive Device Gait Belt,Straight Cane,Front Wheeled Walker Gait Deviations General Gait Pattern Antalgic,Decreased Stride Length,Step-to Gait Factors Limiting Gait Function Factors Limiting Gait Function Decreased Activity Tolerance, Decreased Strength,Limited Range of Motion,Pain,Poor Balance Comments Gait Comments Primarily uses FWW for gait. Began using FWW for gait prior in Jun 2022 prior to surgery due to poor balance. PT-OP-H Neuro Start: 04/28/23 10:41 Freq: Status: Active Protocol: Document 04/28/23 10:42 NM (Rec: 04/28/23 11:40 NM [id number]) Sensation Evaluation Gross Sensation Gross Sensation WNL Comments Summary Comments LLE intact to light touch sensation in all dermatomes. PT-OP-J Posture/Palpation/Skin Start: 04/28/23 10:41 Freq: Status: Active Protocol: Document 04/28/23 10:42 NM (Rec: 04/28/23 11:40 NM [id number]) Posture Evaluation Position Standing Evaluation View Posterior Pelvis Posture Anteriorly Tilted Weight Distribution Weight Shifted Right,Decreased Wt.Bear on (L) Hip Posture (L) Externally Rotated Knee Posture (L) Genu Valgus,(R) Genu Valgus Patellar Posture (R) Superior Palpation Assessment Location L knee Palpation Location posterior knee, posterior calf , lateral and medial knee Palpation Findings Edema,Soft Tissue Tightness, Tenderness Palpation Details Tenderness and edema along posterior knee and calf. No sign of DVT Tenderness and edema along medial and lateral knee near patella, femoral condyles near joint line Skin Assessment Edema Assessment L ankle Edema Type Non-Pitting Edema Degree 2+ Edema Appearance Discolored,Puffy Circumference Measurement L knee Location 5 cm above patella (60cm), sub patella (51 cm), 10 cm below patella (49 cm) Comments L malleoli (27 cm) with excess on lateral side, at patella ( 56.5 cm) Incisional Assessment Incision Appearance/Comments Bandage is CDI. Still wrapped so could not formally assess incision. No signs of infection around bandage. Will assess further once bandage removed PT-OP-K Range of Motion Start: 04/28/23 10:41 Freq: Status: Active Protocol: Document 09/09/23 11:18 NM (Rec: 09/09/23 16:14 NM [id number]) Knee Goniometric Range of Motion Knee Left Knee ROM WFL No Patient Position Supine Flexion Active (degrees) 115 Flexion Passive (degrees) 115 Extension Active (degrees) 2 Extension Passive (degrees) 1 Comments 09/09/23: 118 deg flexion 08/13/23: 116 flexion, 0 deg extension 07/14/23: 115 deg flex, 2 deg ext lacking 07/04/23: lacks 3 deg ext with active quad contraction; 115 AROM knee flex 05/30/23: 110 deg flex AROM, 5 deg ext AROM 05/30/23: lacking 5 deg ext with active quad contraction @IE: flex 80 deg ext -10 deg PT-OP-M Strength Start: 04/28/23 10:41 Freq: Status: Active Protocol: Document 09/09/23 11:18 NM (Rec: 09/09/23 16:14 NM [id number]) Knee Strength Knee Manual Muscle Testing Left Flexion (S2) 4+ Good+ Extension (L3) 4 Good Comments 09/09/23: 4/5 knee ext, 4+/5 knee flex 08/13/23: 4+/5 for flex, 4/5 ext 07/04/23: 4/5, no pain with resisted motion 05/30/23: 4/5 flex, 4-/5 ext @ IE: flex and ext 3/5 PT-OP-Q Treatments Start: 04/28/23 10:41 Freq: Status: Active Protocol: Document 09/19/23 15:22 NBM (Rec: 09/19/23 16:52 NBM [id number]) Cardio Equipment Recumbent Bicycle Duration (Minutes) 4 Resistance 0 Seat Position 2 Other warm up Therapeutic Exercises Standing Exercises hip 3 way Standing Exercise Name HEP review Side bilateral Resistance lvl 2 teal tb below knees Equipment Used UE support on plinth Reps/Minutes 1x10 ea Comments pain free; cues for form Other Exercises Sit to stand Other Exercise Name eccentric taps Side bilateral Equipment Used 4WW in front for stability prn Reps/Minutes 2x10 Comments cued for hip hinge, slower pacing, full range w/ fatigue Manual Therapy Treatment Soft Tissue Mobilization L knee Body Location quad, peripatellar area and Mobilization Type Cross-Friction,Instrument Assisted,Rolling,Other Intensity/Depth Moderate Body Position Hooklying Comments -Cupping to proximal scar, distal quads and TFL. -light edema massage for knee swelling -Decreased tenderness of quad Manual Techniques manual stretch Type w/ breathwork Comments Quad in sidelying, 2x60. PT blocking at hip, with knee flex to pt tolerance. Pain free, reports feels really good PT-OP-R Modalities Start: 05/30/23 15:01 Freq: Status: Active Protocol: Document 05/30/23 13:54 NM (Rec: 05/30/23 15:07 NM [id number]) Electric Stimulation Electric Stimulation Biphasic Body Location L quad Duration (Minutes) 10 Intensity 18 Frequency 50 Pulse Width 300 Contraction Type Normal Ramp 1.0 Comments 5/5 cycle due to time to maximize contractions Performed in sitting (LAQ), supine (quad sets, SAQ). Skin normal color, intact/dry before, during, after tmt. Skin check after 3 min and at end of session. PT-OP-T Assessment and Plan Start: 04/28/23 10:41 Freq: Status: Active Protocol: Document 09/19/23 15:22 NBM (Rec: 09/19/23 16:52 NBM [id number]) Physical Therapy Assessment Goals Seven Impairment gait Impairment Unable to complete 6 MWT at IE Short Term Goal (STG) Pt will be able to complete a 6 MWT using LRAD in order to demo improved gait mechanics and activity tolerance for community ambulation. 05/30/23: 798 ft with FWW STG Duration 6 weeks MET Accounting Technician Goal (LTG) Pt will improve 6 MWT distance >800 ft using LRAD in order to demo improved gait mechanics and activity tolerance for community ambulation. 07/14/23: 646 ft with spc, 2 standing rest breaks 08/13/23: 588 ft with spc, reports feels more stiff 09/01/23: 640 ft with spc, 1 standing rest break 09/08/23: 796 ft 4WW, no rest breaks LTG Duration 12 weeks NOT MET; goal updated Six Impairment function Impairment LEFS Short Term Goal (STG) Pt will improve LEFS score by at least 9 points (MCID) in order to demo improved activity tolerance and strength. 05/30/23: 53/80 STG Duration 6 weeks MET Care Home Goal (LTG) Pt will improve LEFS score by at least 18 points (2 MCID) in order to demo improved activity tolerance and strength. 05/30/23: 53/80 09/09/23: 50/80 LTG Duration 12 weeks MET Five Impairment Balance, function Impairment TUG 41.5 sec with FWW Short Term Goal (STG) Pt will decrease TUG score time to at least 30 seconds or less using LRAD in order to demo improved balance during gait and transfers, to decrease fall risk. 07/04/23: 18.4 sec 05/30/23: 21 sec STG Duration 6 weeks MET Accounting Technician Goal (LTG) Pt will decrease TUG score time to at least 15 seconds or less using LRAD in order to demo improved balance during gait and transfers, to decrease fall risk. 08/13/23: 18 sec, 17 sec, 16 sec 07/14/23: 16 sec FWW, 18 sec spc 07/04/23: 18.4 sec 09/09/23: 15.8 and 13.6 sec with 4WW, 18 and 16 and 15 sec with spc LTG Duration 12 weeks MET Four Impairment strength Impairment Knee flex 3 Short Term Goal (STG) Pt will improve L knee flex strength to at least 4-/5 in order to perform stairs and for propulsion during gait. 05/30/23: 4/5 knee flex STG Duration 6 weeks MET Care Home Goal (LTG) Pt will improve L knee flex strength to at least 4+/5 in order to perform stairs and for propulsion during gait. 08/13/23: 4+/5 knee flexion 07/14/23, 07/04/23: 4/5 knee flex MMT LTG Duration 12 weeks MET Three Impairment Strength Impairment Knee ext 3/5 Short Term Goal (STG) Pt will improve L knee ext strength to at least 4-/5 in order to demo improved quad control for stability and TKE for gait. 05/30/23: 4-/5 MMT STG Duration 6 weeks MET Care Home Goal (LTG) Pt will improve L knee ext strength to at least 4+/5 in order to demo improved quad control for stability and TKE for gait. 09/09/23: 4/5 knee extension MMT 08/13/23: 4/5 knee extension 07/14/23, 07/04/24: 4/5 knee ext MMT; functionally limited during step up, squat LTG Duration 12 weeks PROGRESSING, NOT MET Two Impairment ROM Impairment Knee ext 10 deg AROM (lacking) Short Term Goal (STG) Pt will improve L knee ext to at least 5 deg AROM in order to reach terminal knee extension during gait and improve knee stability during stairs/gait. 05/30/23: -5 deg knee ext but demos decreased quad activation STG Duration 6 weeks MET Accounting Technician Goal (LTG) Pt will improve L knee ext to at least 1 deg in order to reach terminal knee extension during gait and improve knee stabiltiy during stairs/gait. 08/13/23: 0 deg extension 07/14/23: lacking 2 deg ext with quad set, heel elevated 07/04/23: 3 with quad set 06/26/23: 1 deg with quad set, heel elevated due to calf LTG Duration 12 weeks MET One Impairment ROM Impairment Knee flex 80 deg AROM Short Term Goal (STG) Pt will improve L knee flex to at least 100 deg AROM in order to demo improved knee flex ROM for stairs and gait. 06/16/23: 115 deg flex AROM 05/30/23: 110 deg flex AROM STG Duration 6 weeks MET Accounting Technician Goal (LTG) Pt will improve L knee flex to > 115 deg AROM in order to demo improved knee flex ROM for stairs, gait, and to be comparable to RLE. 09/15/23: 120 deg flexion 09/09/23:; 118 deg flexion 08/13/23: 116 deg knee flexion 07/04/23: 115 AROM MET; updated to > 115 deg 06/26/23: MET- 115 deg AROM pre- mob 118 post-mo LTG Duration 12 weeks MET; goal updated Assessment Summary Assessment Treatment focus on HEP review and STM. Benita requires cues w / 3-way hip ex for form and small range to reduce trunk compensations, and cues for hip hinge and slower pacing w/ fatigue for chair taps, and demos improved form and self- awareness w/ cueing and repetition for each. Palpable tension in L knee proximal scar, distal quads and TFL improves w/ STM focus and cupping. Physical Therapy Plan Frequency and Duration Frequency of Treatment 2x/Week Duration of treatment (weeks) 8 Plan of Care Start Date 09/09/23 Plan of Care End Date 11/07/23 Therapeutic Interventions Therapeutic Interventions Aquatic Therapy,Balance Training,Gait Training,Home Exercise Program,Joint Mobilizations,Manual Therapy, Neuromuscular Re-education, Patient/Caregiver Education, Self-Care/Home Management,Soft Tissue Mobilization,Taping, Therapeutic Activities, Therapeutic Exercises Modalities Cold Pack/Ice Massage,Electric Stimulation,Hot Packs, Iontophoresis,Ultrasound, Vasopneumatic Devices Next Visit Focus/Plan Next Note Type Treatment Note Next Visit Plan Assess response to cupping. Plan of care: continue with glute/quad strengthening and functional balance. Progress exercises and update HEP. Goal - independent and confident with spc, stairs Continue: leg press, cable LAQ (L only), hip 3 way (trial foam or slider), 6 step up, lateral 4 step up, functional balance training. Manual STM/ mobilization prn POC: gait training with cane prn (hurdles), continue 6 step up with hinge and lateral , leg press, strengthening hip abd/glutes/quad with band. Balance training.
--- NOTE | 2023-10-09 16:16 | PT.OTN ---
Current Diagnoses Unilateral primary osteoarthritis, left knee (10/09/23) Physical Therapy Treatment Note PT-OP-A Visit Information Start: 04/28/23 10:41 Freq: Status: Active Protocol: Document 10/09/23 12:08 AB (Rec: 10/09/23 14:31 AB [id number]) Out-Patient Physical Therapy Visit Information Visit Information Visit Type Treatment Note Visit Start Time 13:49 Visit Stop Time 14:30 Visit Number 33 Number of DISTRICT SUPERVISOR Visits 3 Evaluation Information Evaluation Date 04/28/23 Precautions Precautions Post-op 04/18/23 (TKA) Fall risk PT-OP-B Current Condition Start: 04/28/23 10:41 Freq: Status: Active Protocol: Document 04/28/23 10:42 NM (Rec: 04/28/23 11:40 NM [id number]) Current Condition History of Current Condition Onset Date 04/18/23 Current Complaints pain, swelling, sleep History of Current Condition Pt presents to clinic with FWW s/p L TKA on 04/19. She is seeing Dr. Patton for her knee. Currently, pt still has her post-op dressings still on and is WBAT with a FWW. Pt has B knee OA, which led to the replacement. She had no pre-op PT. Prior to surgery, she was able to ambulate up to 1/4 mi due to pain, which is a decrease from her baseline which was 1 mi. She is planning on having the R knee replaced in a few months. Pt has steps leading up to her home which is covered by a ramp. She used a FWW for gait prior to surgery due to feeling like she had poor balance; she also has a spc that she uses occasional (not since surgery). Pt reports compliance with HEP from hospital, performing exercises 1-2x/day. She does report some tingling in her LLE down to her foot, but this was occuring prior to her TKA. Her main compliants are pain, weakness, swelling, stiffness, and poor sleep since her surgery. Future Testing and Treatments Planned Follow up 04/[address] Patton Treatment Goals Patient/Caregiver Goals Decrease pain, improve knee motion and strength, be able to sleep without discomfort Prior Functional Status Baseline Function- ADL's Independent Baseline Function- Mobility Independent Baseline Function- Gait FWW or spc for balance; up to 1/4 mi for gait distance Baseline Function- Recreation/Hobbies Gardening (hands and knees) Baseline Function- Other Stairs (no issue) Current Functional Impairments (Reported) Functional Limitations- Mobility/Gait No stairs due to limited motion and pain, no more than household ambulation Functional Limitations- Recreation/ Unable to garden Hobbies PT-OP-C Subjective Start: 04/28/23 10:41 Freq: Status: Active Protocol: Document 10/09/23 12:08 AB (Rec: 10/09/23 14:31 AB [id number]) OP-PT Subjective Patient Comments Patient Comments Benita reports she was sore for a day and a half post cupping , comments she would like to try with larger cups. Pt reports she will be getting an injection in her back as the quad is numb and tingling. Patient reports the knee joint has been good. Patient reports her knee is stiff and painful when she is getting started, but better when she warms up. Benita complains of knee feeling heavy when she gets out of bed in the morning . Patient reports the exercises are going well. lacking 10 deg extension to 113 deg flexion. PT-OP-D Balance Start: 04/28/23 10:41 Freq: Status: Active Protocol: Document 04/28/23 10:42 NM (Rec: 04/28/23 11:56 NM [id number]) OP-PT Balance Assessment Sitting Balance Static Sitting Balance Ability Normal Dynamic Sitting Balance Ability Normal Standing Balance Static Standing Balance Ability Good Dynamic Standing Balance Ability Fair Device Used FWW Standing Balance Comments Occasional CGA to steady during gait, changing JUVENCIO Denise Fall Scale Copyright Permission PT-OP-E Functional Tests Start: 04/28/23 10:41 Freq: Status: Active Protocol: Document 04/28/23 10:42 NM (Rec: 04/28/23 11:40 NM [id number]) Functional Tests Timed Up and Go (TUG) Score 41.5 sec Comments FWW, SBA PT-OP-F Manual Assessment Start: 04/28/23 10:41 Freq: Status: Active Protocol: Document 04/28/23 10:42 NM (Rec: 04/28/23 11:40 NM [id number]) Manual Assessments Soft Tissue Assessment Soft Tissue Mobility Assessment Soft tissue restrictions of L hamstring. Edema in L ankle, knee and calf. Will need scar mobilization to prevent adhesions once scar is closed and healed. Joint Mobility Assessment Joint Mobility Assessment Empty end feel with PROM, limited mobility PT-OP-G Mobility & Gait Start: 04/28/23 10:41 Freq: Status: Active Protocol: Document 04/28/23 10:42 NM (Rec: 04/28/23 11:40 NM [id number]) OP Gait Assessment Gait Gait Assistance Required: Standby Assistance Distance (Feet) 200 Able to Maintain Weight Bearing Status Yes During Gait Assistive Devices Assistive Device Gait Belt,Straight Cane,Front Wheeled Walker Gait Deviations General Gait Pattern Antalgic,Decreased Stride Length,Step-to Gait Factors Limiting Gait Function Factors Limiting Gait Function Decreased Activity Tolerance, Decreased Strength,Limited Range of Motion,Pain,Poor Balance Comments Gait Comments Primarily uses FWW for gait. Began using FWW for gait prior in Jun 2022 prior to surgery due to poor balance. PT-OP-H Neuro Start: 04/28/23 10:41 Freq: Status: Active Protocol: Document 04/28/23 10:42 NM (Rec: 04/28/23 11:40 NM [id number]) Sensation Evaluation Gross Sensation Gross Sensation WNL Comments Summary Comments LLE intact to light touch sensation in all dermatomes. PT-OP-J Posture/Palpation/Skin Start: 04/28/23 10:41 Freq: Status: Active Protocol: Document 04/28/23 10:42 NM (Rec: 04/28/23 11:40 NM [id number]) Posture Evaluation Position Standing Evaluation View Posterior Pelvis Posture Anteriorly Tilted Weight Distribution Weight Shifted Right,Decreased Wt.Bear on (L) Hip Posture (L) Externally Rotated Knee Posture (L) Genu Valgus,(R) Genu Valgus Patellar Posture (R) Superior Palpation Assessment Location L knee Palpation Location posterior knee, posterior calf , lateral and medial knee Palpation Findings Edema,Soft Tissue Tightness, Tenderness Palpation Details Tenderness and edema along posterior knee and calf. No sign of DVT Tenderness and edema along medial and lateral knee near patella, femoral condyles near joint line Skin Assessment Edema Assessment L ankle Edema Type Non-Pitting Edema Degree 2+ Edema Appearance Discolored,Puffy Circumference Measurement L knee Location 5 cm above patella (60cm), sub patella (51 cm), 10 cm below patella (49 cm) Comments L malleoli (27 cm) with excess on lateral side, at patella ( 56.5 cm) Incisional Assessment Incision Appearance/Comments Bandage is CDI. Still wrapped so could not formally assess incision. No signs of infection around bandage. Will assess further once bandage removed PT-OP-K Range of Motion Start: 04/28/23 10:41 Freq: Status: Active Protocol: Document 09/09/23 11:18 NM (Rec: 09/09/23 16:14 NM [id number]) Knee Goniometric Range of Motion Knee Left Knee ROM WFL No Patient Position Supine Flexion Active (degrees) 115 Flexion Passive (degrees) 115 Extension Active (degrees) 2 Extension Passive (degrees) 1 Comments 09/09/23: 118 deg flexion 08/13/23: 116 flexion, 0 deg extension 07/14/23: 115 deg flex, 2 deg ext lacking 07/04/23: lacks 3 deg ext with active quad contraction; 115 AROM knee flex 05/30/23: 110 deg flex AROM, 5 deg ext AROM 05/30/23: lacking 5 deg ext with active quad contraction @IE: flex 80 deg ext -10 deg PT-OP-M Strength Start: 04/28/23 10:41 Freq: Status: Active Protocol: Document 09/09/23 11:18 NM (Rec: 09/09/23 16:14 NM [id number]) Knee Strength Knee Manual Muscle Testing Left Flexion (S2) 4+ Good+ Extension (L3) 4 Good Comments 09/09/23: 4/5 knee ext, 4+/5 knee flex 08/13/23: 4+/5 for flex, 4/5 ext 07/04/23: 4/5, no pain with resisted motion 05/30/23: 4/5 flex, 4-/5 ext @ IE: flex and ext 3/5 PT-OP-Q Treatments Start: 04/28/23 10:41 Freq: Status: Active Protocol: Document 10/09/23 12:08 AB (Rec: 10/09/23 14:31 AB [id number]) Therapeutic Exercises Supine Exercises hamstring stretch from hooklying Side left Reps/Minutes 60 sec X 3 SLR Side left Resistance AROM Reps/Minutes X10 post hamstring stretch Quad Set Side left Equipment Used small towel behind knee Reps/Minutes X5 with 5 hold Heel slides Side left Reps/Minutes 10 Comments post manual therapy Standing Exercises Knee flexion mobilization/stretch Standing Exercise Name LLE elevated on 6 step, then fwd into knee flex stretch Side left Equipment Used 2nd step, B hand rail use Reps/Minutes 60 seconds hold X 3 Step up Standing Exercise Name 6 inch step Side left Equipment Used 1 rail use, flat hand R Reps/Minutes 2x10 ea Comments post hamstring stretch Manual Therapy Treatment Soft Tissue Mobilization left knee Body Location quad, hamstring, peropatellar, med and lat left knee Joint Mobilizations Patella Direction superior/inferior, medial/ lateral, CW and CCW Grade III Body Position Supine Reps/Duration 1x10 ea direction Comments To improve knee flex mobility. Performed in various deg of knee flex PT-OP-R Modalities Start: 05/30/23 15:01 Freq: Status: Active Protocol: Document 05/30/23 13:54 NM (Rec: 05/30/23 15:07 NM [id number]) Electric Stimulation Electric Stimulation Biphasic Body Location L quad Duration (Minutes) 10 Intensity 18 Frequency 50 Pulse Width 300 Contraction Type Normal Ramp 1.0 Comments 5/5 cycle due to time to maximize contractions Performed in sitting (LAQ), supine (quad sets, SAQ). Skin normal color, intact/dry before, during, after tmt. Skin check after 3 min and at end of session. PT-OP-T Assessment and Plan Start: 04/28/23 10:41 Freq: Status: Active Protocol: Document 10/09/23 12:08 AB (Rec: 10/09/23 14:31 AB [id number]) Physical Therapy Assessment Goals Seven Impairment gait Impairment Unable to complete 6 MWT at IE Short Term Goal (STG) Pt will be able to complete a 6 MWT using LRAD in order to demo improved gait mechanics and activity tolerance for community ambulation. 05/30/23: 798 ft with FWW STG Duration 6 weeks MET Turnaround Planner Goal (LTG) Pt will improve 6 MWT distance >800 ft using LRAD in order to demo improved gait mechanics and activity tolerance for community ambulation. 07/14/23: 646 ft with spc, 2 standing rest breaks 08/13/23: 588 ft with spc, reports feels more stiff 09/01/23: 640 ft with spc, 1 standing rest break 09/08/23: 796 ft 4WW, no rest breaks LTG Duration 12 weeks NOT MET; goal updated Six Impairment function Impairment LEFS Short Term Goal (STG) Pt will improve LEFS score by at least 9 points (MCID) in order to demo improved activity tolerance and strength. 05/30/23: 5380 STG Duration 6 weeks MET Turnaround Planner Goal (LTG) Pt will improve LEFS score by at least 18 points (2 MCID) in order to demo improved activity tolerance and strength. 05/30/23: 5309/09/23: 50/80 LTG Duration 12 weeks MET Five Impairment Balance, function Impairment TUG 41.5 sec with FWW Short Term Goal (STG) Pt will decrease TUG score time to at least 30 seconds or less using LRAD in order to demo improved balance during gait and transfers, to decrease fall risk. 07/04/23: 18.4 sec 05/30/23: 21 sec STG Duration 6 weeks MET Turnaround Planner Goal (LTG) Pt will decrease TUG score time to at least 15 seconds or less using LRAD in order to demo improved balance during gait and transfers, to decrease fall risk. 08/13/23: 18 sec, 17 sec, 16 sec 07/14/23: 16 sec FWW, 18 sec spc 07/04/23: 18.4 sec 09/09/23: 15.8 and 13.6 sec with 4WW, 18 and 16 and 15 sec with spc LTG Duration 12 weeks MET Four Impairment strength Impairment Knee flex 3/5 Short Term Goal (STG) Pt will improve L knee flex strength to at least 4-/5 in order to perform stairs and for propulsion during gait. 05/30/23: 4/5 knee flex STG Duration 6 weeks MET Correction Goal (LTG) Pt will improve L knee flex strength to at least 4+/5 in order to perform stairs and for propulsion during gait. 08/13/23: 4+/5 knee flexion 07/14/23, 07/04/23: 4/5 knee flex MMT LTG Duration 12 weeks MET Three Impairment Strength Impairment Knee ext 3/5 Short Term Goal (STG) Pt will improve L knee ext strength to at least 4-/5 in order to demo improved quad control for stability and TKE for gait. 05/30/23: 4-/5 MMT STG Duration 6 weeks MET Turnaround Planner Goal (LTG) Pt will improve L knee ext strength to at least 4+/5 in order to demo improved quad control for stability and TKE for gait. 09/09/23: 4/5 knee extension MMT 08/13/23: 4/5 knee extension 07/14/23, 07/04/24: 4/5 knee ext MMT; functionally limited during step up, squat LTG Duration 12 weeks PROGRESSING, NOT MET Two Impairment ROM Impairment Knee ext 10 deg AROM (lacking) Short Term Goal (STG) Pt will improve L knee ext to at least 5 deg AROM in order to reach terminal knee extension during gait and improve knee stability during stairs/gait. 05/30/23: -5 deg knee ext but demos decreased quad activation STG Duration 6 weeks MET Correction Goal (LTG) Pt will improve L knee ext to at least 1 deg in order to reach terminal knee extension during gait and improve knee stabiltiy during stairs/gait. 08/13/23: 0 deg extension 07/14/23: lacking 2 deg ext with quad set, heel elevated 07/04/23: 3 with quad set 06/26/23: 1 deg with quad set, heel elevated due to calf LTG Duration 12 weeks MET One Impairment ROM Impairment Knee flex 80 deg AROM Short Term Goal (STG) Pt will improve L knee flex to at least 100 deg AROM in order to demo improved knee flex ROM for stairs and gait. 06/16/23: 115 deg flex AROM 05/30/23: 110 deg flex AROM STG Duration 6 weeks MET Correction Goal (LTG) Pt will improve L knee flex to > 115 deg AROM in order to demo improved knee flex ROM for stairs, gait, and to be comparable to RLE. 09/15/23: 120 deg flexion 09/09/23:; 118 deg flexion 08/13/23: 116 deg knee flexion 07/04/23: 115 AROM MET; updated to > 115 deg 06/26/23: MET- 115 deg AROM pre- mob 118 post-mo LTG Duration 12 weeks MET; goal updated Assessment Summary Assessment lacking 6 deg ext to 115 AROM left knee end of session with patient commenting the knee feels fine, but the groin feels tight on the right. Physical Therapy Plan Frequency and Duration Frequency of Treatment 2x/Week Duration of treatment (weeks) 8 Plan of Care Start Date 09/09/23 Plan of Care End Date 11/07/23 Next Visit Focus/Plan Next Note Type Treatment Note Next Visit Plan Plan of care:Balance, continue with glute/quad strengthening and functional balance. Progress exercises and update HEP. Goal- independent and confident with spc, stairs Continue: leg press, cable LAQ (L only), hip 3 way (trial foam or slider), 6 step up, lateral 4 step up, functional balance training. Manual STM/ mobilization prn POC: gait training with cane prn (hurdles), continue 6 step up with hinge and lateral , leg press, strengthening hip abd/glutes/quad with band. Balance training.
--- NOTE | 2023-10-16 15:51 | PT.OTN ---
Current Diagnoses Unilateral primary osteoarthritis, left knee (10/16/23) Physical Therapy Treatment Note PT-OP-A Visit Information Start: 04/28/23 10:41 Freq: Status: Active Protocol: Document 10/16/23 13:50 NM (Rec: 10/16/23 14:33 NM [id number]) Out-Patient Physical Therapy Visit Information Visit Information Visit Type Progress Note Visit Start Time 13:50 Visit Stop Time 14:30 Visit Number [id number] Evaluation Information Evaluation Date 04/28/23 PT-OP-B Current Condition Start: 04/28/23 10:41 Freq: Status: Active Protocol: Document 04/28/23 10:42 NM (Rec: 04/28/23 11:40 NM [id number]) Current Condition History of Current Condition Onset Date 04/18/23 Current Complaints pain, swelling, sleep History of Current Condition Pt presents to clinic with FWW s/p L TKA on 04/19. She is seeing Dr. Patton for her knee. Currently, pt still has her post-op dressings still on and is WBAT with a FWW. Pt has B knee OA, which led to the replacement. She had no pre-op PT. Prior to surgery, she was able to ambulate up to 1/4 mi due to pain, which is a decrease from her baseline which was 1 mi. She is planning on having the R knee replaced in a few months. Pt has steps leading up to her home which is covered by a ramp. She used a FWW for gait prior to surgery due to feeling like she had poor balance; she also has a spc that she uses occasional (not since surgery). Pt reports compliance with HEP from hospital, performing exercises 1-2x/day. She does report some tingling in her LLE down to her foot, but this was occuring prior to her TKA. Her main compliants are pain, weakness, swelling, stiffness, and poor sleep since her surgery. Future Testing and Treatments Planned Follow up 04/[address] Patton Treatment Goals Patient/Caregiver Goals Decrease pain, improve knee motion and strength, be able to sleep without discomfort Prior Functional Status Baseline Function- ADL's Independent Baseline Function- Mobility Independent Baseline Function- Gait FWW or spc for balance; up to 1/4 mi for gait distance Baseline Function- Recreation/Hobbies Gardening (hands and knees) Baseline Function- Other Stairs (no issue) Current Functional Impairments (Reported) Functional Limitations- Mobility/Gait No stairs due to limited motion and pain, no more than household ambulation Functional Limitations- Recreation/ Unable to garden Hobbies PT-OP-C Subjective Start: 04/28/23 10:41 Freq: Status: Active Protocol: Document 10/16/23 13:50 NM (Rec: 10/16/23 14:33 NM [id number]) OP-PT Subjective Patient Comments Patient Comments Pt reports that she got an injection, which helps her L leg and quad considerably. She reports that she is doing better with the cane and only uses walker prn. Her is experiencing more health problems that will take priority soon, so pt is wanting to discharge to maintenance HEP in several sessions as she feels she is doing much better and has been compliant with HEP PT-OP-D Balance Start: 04/28/23 10:41 Freq: Status: Active Protocol: Document 04/28/23 10:42 NM (Rec: 04/28/23 11:56 NM [id number]) OP-PT Balance Assessment Sitting Balance Static Sitting Balance Ability Normal Dynamic Sitting Balance Ability Normal Standing Balance Static Standing Balance Ability Good Dynamic Standing Balance Ability Fair Device Used FWW Standing Balance Comments Occasional CGA to steady during gait, changing JUVENCIO Denise Fall Scale Copyright Permission PT-OP-E Functional Tests Start: 04/28/23 10:41 Freq: Status: Active Protocol: Document 04/28/23 10:42 NM (Rec: 04/28/23 11:40 NM [id number]) Functional Tests Timed Up and Go (TUG) Score 41.5 sec Comments FWW, SBA PT-OP-F Manual Assessment Start: 04/28/23 10:41 Freq: Status: Active Protocol: Document 04/28/23 10:42 NM (Rec: 04/28/23 11:40 NM [id number]) Manual Assessments Soft Tissue Assessment Soft Tissue Mobility Assessment Soft tissue restrictions of L hamstring. Edema in L ankle, knee and calf. Will need scar mobilization to prevent adhesions once scar is closed and healed. Joint Mobility Assessment Joint Mobility Assessment Empty end feel with PROM, limited mobility PT-OP-G Mobility & Gait Start: 04/28/23 10:41 Freq: Status: Active Protocol: Document 04/28/23 10:42 NM (Rec: 04/28/23 11:40 NM [id number]) OP Gait Assessment Gait Gait Assistance Required: Standby Assistance Distance (Feet) 200 Able to Maintain Weight Bearing Status Yes During Gait Assistive Devices Assistive Device Gait Belt,Straight Cane,Front Wheeled Walker Gait Deviations General Gait Pattern Antalgic,Decreased Stride Length,Step-to Gait Factors Limiting Gait Function Factors Limiting Gait Function Decreased Activity Tolerance, Decreased Strength,Limited Range of Motion,Pain,Poor Balance Comments Gait Comments Primarily uses FWW for gait. Began using FWW for gait prior in Jun 2022 prior to surgery due to poor balance. PT-OP-H Neuro Start: 04/28/23 10:41 Freq: Status: Active Protocol: Document 04/28/23 10:42 NM (Rec: 04/28/23 11:40 NM [id number]) Sensation Evaluation Gross Sensation Gross Sensation WNL Comments Summary Comments LLE intact to light touch sensation in all dermatomes. PT-OP-J Posture/Palpation/Skin Start: 04/28/23 10:41 Freq: Status: Active Protocol: Document 04/28/23 10:42 NM (Rec: 04/28/23 11:40 NM [id number]) Posture Evaluation Position Standing Evaluation View Posterior Pelvis Posture Anteriorly Tilted Weight Distribution Weight Shifted Right,Decreased Wt.Bear on (L) Hip Posture (L) Externally Rotated Knee Posture (L) Genu Valgus,(R) Genu Valgus Patellar Posture (R) Superior Palpation Assessment Location L knee Palpation Location posterior knee, posterior calf , lateral and medial knee Palpation Findings Edema,Soft Tissue Tightness, Tenderness Palpation Details Tenderness and edema along posterior knee and calf. No sign of DVT Tenderness and edema along medial and lateral knee near patella, femoral condyles near joint line Skin Assessment Edema Assessment L ankle Edema Type Non-Pitting Edema Degree 2+ Edema Appearance Discolored,Puffy Circumference Measurement L knee Location 5 cm above patella (60cm), sub patella (51 cm), 10 cm below patella (49 cm) Comments L malleoli (27 cm) with excess on lateral side, at patella ( 56.5 cm) Incisional Assessment Incision Appearance/Comments Bandage is CDI. Still wrapped so could not formally assess incision. No signs of infection around bandage. Will assess further once bandage removed PT-OP-K Range of Motion Start: 04/28/23 10:41 Freq: Status: Active Protocol: Document 10/16/23 13:50 NM (Rec: 10/16/23 14:33 NM [id number]) Knee Goniometric Range of Motion Knee Left Knee ROM WFL No Patient Position Supine Flexion Active (degrees) 118 Flexion Passive (degrees) 120 Extension Active (degrees) 2 Extension Passive (degrees) 1 Comments 10/16/23: 118 deg flexion, -2 deg ext 09/09/23: 118 deg flexion 08/13/23: 116 flexion, 0 deg extension 07/14/23: 115 deg flex, 2 deg ext lacking 07/04/23: lacks 3 deg ext with active quad contraction; 115 AROM knee flex 05/30/23: 110 deg flex AROM, 5 deg ext AROM 05/30/23: lacking 5 deg ext with active quad contraction @IE: flex 80 deg, ext -10 deg PT-OP-M Strength Start: 04/28/23 10:41 Freq: Status: Active Protocol: Document 10/16/23 13:50 NM (Rec: 10/16/23 14:33 NM [id number]) Hip Strength Hip Manual Muscle Testing Left Flexion (L2) 4 Good Extension (S1) 4+ Good+ Abduction 4+ Good+ External Rotation 4+ Good+ Internal Rotation 4+ Good+ Comments Assessed in sitting due to knee pain 10/16/23: 4+/5 for flex/ext, 4/ 5 for flex 08/13/23: 4/5 for all 07/14/23, 07/04/23: 4-/5 for all motions, no pain IE: 3+/5 for all Knee Strength Knee Manual Muscle Testing Left Flexion (S2) 4+ Good+ Extension (L3) 4+ Good+ Comments 10/16/23: 4+/5 09/09/23: 4/5 knee ext, 4+/5 knee flex 08/13/23: 4+/5 for flex, 4/5 ext 07/04/23: 4/5, no pain with resisted motion 05/30/23: 4/5 flex, 4-/5 ext @ IE: flex and ext 3/5 PT-OP-Q Treatments Start: 04/28/23 10:41 Freq: Status: Active Protocol: Document 10/16/23 13:50 NM (Rec: 10/16/23 14:33 NM [id number]) Therapeutic Exercises Supine Exercises knee flexion mobilization Supine Exercise Name self mob with towel Side left Reps/Minutes 2x10 Comments hip flex assist with lvl 5 tband; reports feels good Heel slides Supine Exercise Name AROM Side left Reps/Minutes 2x10 Comments post manual therapy Standing Exercises lateral lunge Standing Exercise Name foot elevatd on 4 step Side bilateral Equipment Used 1 hand support on rail for balance Reps/Minutes 1x10 ea Comments increased knee flex, Feels good Lunge Standing Exercise Name front foot elevated 4 step Side bilateral Equipment Used 1 hand support on rail for balance Reps/Minutes 1x10 ea Comments improved L knee flex; cued knee over toe Gait Training Gait Activity stairs Level of Assistance 2 flat hands on B rails Distance/Duration 2 sets x 4 stairs Treatment Focus endurance, form, knee flexion Comments Reports feels good but fatiguing. Demos improved knee flex with descent, no valgus but limited ankle DF 6 MWT Device Used spc Level of Assistance IND Surface stable Distance/Duration 818 ft Treatment Focus endurance, speed Comments No rest breaks. Cued for strong LLE propulsion, relax L shoulder. Improved gait speed and endurance Manual Therapy Treatment Joint Mobilizations L knee Direction A-P Grade III Comments for knee flexion, pain free; improved from 115 deg to 118 deg post mobilization Patella Direction inferior Grade III Body Position Supine Comments with knee flexion mobilization PT-OP-R Modalities Start: 05/30/23 15:01 Freq: Status: Active Protocol: Document 05/30/23 13:54 NM (Rec: 05/30/23 15:07 NM [id number]) Electric Stimulation Electric Stimulation Biphasic Body Location L quad Duration (Minutes) 10 Intensity 18 Frequency 50 Pulse Width 300 Contraction Type Normal Ramp 1.0 Comments 5/5 cycle due to time to maximize contractions Performed in sitting (LAQ), supine (quad sets, SAQ). Skin normal color, intact/dry before, during, after tmt. Skin check after 3 min and at end of session. PT-OP-T Assessment and Plan Start: 04/28/23 10:41 Freq: Status: Active Protocol: Document 10/16/23 13:50 NM (Rec: 10/16/23 14:33 NM [id number]) Physical Therapy Assessment Goals Seven Impairment gait Impairment Unable to complete 6 MWT at IE Short Term Goal (STG) Pt will be able to complete a 6 MWT using LRAD in order to demo improved gait mechanics and activity tolerance for community ambulation. 05/30/23: 798 ft with FWW STG Duration 6 weeks MET [employer] Member Goal (LTG) Pt will improve 6 MWT distance >800 ft using LRAD in order to demo improved gait mechanics and activity tolerance for community ambulation. 07/14/23: 646 ft with spc, 2 standing rest breaks 08/13/23: 588 ft with spc, reports feels more stiff 09/01/23: 640 ft with spc, 1 standing rest break 09/08/23: 796 ft 4WW, no rest breaks 10/16/23: 818 ft with spc LTG Duration 12 weeks MET updated goal 10/15 Six Impairment function Impairment LEFS Short Term Goal (STG) Pt will improve LEFS score by at least 9 points (MCID) in order to demo improved activity tolerance and strength. 05/30/23: 53/80 STG Duration 6 weeks MET Jail Goal (LTG) Pt will improve LEFS score by at least 18 points (2 MCID) in order to demo improved activity tolerance and strength. 05/30/23: 53/80 09/09/23: 50/80 LTG Duration 12 weeks MET Five Impairment Balance, function Impairment TUG 41.5 sec with FWW Short Term Goal (STG) Pt will decrease TUG score time to at least 30 seconds or less using LRAD in order to demo improved balance during gait and transfers, to decrease fall risk. 07/04/23: 18.4 sec 05/30/23: 21 sec STG Duration 6 weeks MET [employer] Goal (LTG) Pt will decrease TUG score time to at least 15 seconds or less using LRAD in order to demo improved balance during gait and transfers, to decrease fall risk. 08/13/23: 18 sec, 17 sec, 16 sec 07/14/23: 16 sec FWW, 18 sec spc 07/04/23: 18.4 sec 09/09/23: 15.8 and 13.6 sec with 4WW, 18 and 16 and 15 sec with spc LTG Duration 12 weeks MET Four Impairment strength Impairment Knee flex 3 Short Term Goal (STG) Pt will improve L knee flex strength to at least 4-/5 in order to perform stairs and for propulsion during gait. 05/30/23: 4/5 knee flex STG Duration 6 weeks MET [employer] Goal (LTG) Pt will improve L knee flex strength to at least 4+/5 in order to perform stairs and for propulsion during gait. 08/13/23: 4+/5 knee flexion 07/14/23, 07/04/23: 4/5 knee flex MMT LTG Duration 12 weeks MET Three Impairment Strength Impairment Knee ext 3/5 Short Term Goal (STG) Pt will improve L knee ext strength to at least 4-/5 in order to demo improved quad control for stability and TKE for gait. 05/30/23: 4-/5 MMT STG Duration 6 weeks MET [employer] Goal (LTG) Pt will improve L knee ext strength to at least 4+/5 in order to demo improved quad control for stability and TKE for gait. 10/16/23: 4+/5 09/09/23: 4/5 knee extension MMT 08/13/23: 4/5 knee extension 07/14/23, 07/04/24: 4/5 knee ext MMT; functionally limited during step up, squat LTG Duration 12 weeks MET Two Impairment ROM Impairment Knee ext 10 deg AROM (lacking) Short Term Goal (STG) Pt will improve L knee ext to at least 5 deg AROM in order to reach terminal knee extension during gait and improve knee stability during stairs/gait. 05/30/23: -5 deg knee ext but demos decreased quad activation STG Duration 6 weeks MET Jail Goal (LTG) Pt will improve L knee ext to at least 1 deg in order to reach terminal knee extension during gait and improve knee stabiltiy during stairs/gait. 10/16/23: -2 deg ext 08/13/23: 0 deg extension 07/14/23: lacking 2 deg ext with quad set, heel elevated 07/04/23: 3 with quad set 06/26/23: 1 deg with quad set, heel elevated due to calf LTG Duration 12 weeks MET One Impairment ROM Impairment Knee flex 80 deg AROM Short Term Goal (STG) Pt will improve L knee flex to at least 100 deg AROM in order to demo improved knee flex ROM for stairs and gait. 06/16/23: 115 deg flex AROM 05/30/23: 110 deg flex AROM STG Duration 6 weeks MET [employer] Goal (LTG) Pt will improve L knee flex to > 115 deg AROM in order to demo improved knee flex ROM for stairs, gait, and to be comparable to RLE. 10/16/23: 115 premamual to 118 deg post manual 09/15/23: 120 deg flexion 09/09/23:; 118 deg flexion 08/13/23: 116 deg knee flexion 07/04/23: 115 AROM MET; updated to > 115 deg 06/26/23: MET- 115 deg AROM pre- mob 118 post-mo LTG Duration 12 weeks MET; goal updated Progress Towards Goals Progress Towards Goals Progressing Toward Goals,Goals Met Assessment Summary Assessment Pt tolerated session well, demonstrating improvement in both endurance during gait and knee extension ROM. She recently had injection in her lumbar spine, which has significantly improved her pain levels, LLE strength, and overall mobility. During gait , pt continues to require cues for L propulsion during toe off and relax shoulder with spc in order to improve overall quality of gait; demos improved gait speed, mechanics without rest breaks. Improved form with stairs, hand support only for balance today; pt less dependent on use of UE to assist with ascent. Progressed lunges to onto 4 step to improve knee flexion. Manual therapy emphasis on improving L knee flexion. Pt tends to maximize ROM at 118 deg Physical Therapy Plan Frequency and Duration Frequency of Treatment 2x/Week Duration of treatment (weeks) 8 Plan of Care Start Date 09/09/23 Plan of Care End Date 11/07/23 Therapeutic Interventions Therapeutic Interventions Aquatic Therapy,Balance Training,Gait Training,Home Exercise Program,Joint Mobilizations,Manual Therapy, Neuromuscular Re-education, Patient/Caregiver Education, Self-Care/Home Management,Soft Tissue Mobilization,Taping, Therapeutic Activities, Therapeutic Exercises Modalities Cold Pack/Ice Massage,Electric Stimulation,Hot Packs, Iontophoresis,Ultrasound, Vasopneumatic Devices Next Visit Focus/Plan Next Note Type Treatment Note Next Visit Plan Next session: balance and HEP review for maintenance program . planned D/c in 2 visits Plan of care:Balance, continue with glute/quad strengthening and functional balance. Progress exercises and update HEP. Goal- independent and confident with spc, stairs Continue: leg press, cable LAQ (L only), hip 3 way (trial foam or slider), 6 step up, lateral 4 step up, functional balance training. Manual STM/ mobilization prn POC: gait training with cane prn (hurdles), continue 6 step up with hinge and lateral , leg press, strengthening hip abd/glutes/quad with band. Balance training.
--- NOTE | 2023-10-21 14:30 | PT.OTN ---
Current Diagnoses Unilateral primary osteoarthritis, left knee (10/21/23) Physical Therapy Treatment Note PT-OP-A Visit Information Start: 04/28/23 10:41 Freq: Status: Active Protocol: Document 10/21/23 12:57 AB (Rec: 10/21/23 14:30 AB [id number]) Out-Patient Physical Therapy Visit Information Visit Information Visit Type Treatment Note Visit Start Time 13:48 Visit Stop Time 14:28 Visit Number 35 Number of OFFICE ADMINISTRATOR Visits 1 Evaluation Information Evaluation Date 04/28/23 Precautions Precautions Post-op 04/18/23 (TKA) Fall risk PT-OP-B Current Condition Start: 04/28/23 10:41 Freq: Status: Active Protocol: Document 04/28/23 10:42 NM (Rec: 04/28/23 11:40 NM [id number]) Current Condition History of Current Condition Onset Date 04/18/23 Current Complaints pain, swelling, sleep History of Current Condition Pt presents to clinic with FWW s/p L TKA on 04/19. She is seeing Dr. Patton for her knee. Currently, pt still has her post-op dressings still on and is WBAT with a FWW. Pt has B knee OA, which led to the replacement. She had no pre-op PT. Prior to surgery, she was able to ambulate up to 1/4 mi due to pain, which is a decrease from her baseline which was 1 mi. She is planning on having the R knee replaced in a few months. Pt has steps leading up to her home which is covered by a ramp. She used a FWW for gait prior to surgery due to feeling like she had poor balance; she also has a spc that she uses occasional (not since surgery). Pt reports compliance with HEP from hospital, performing exercises 1-2x/day. She does report some tingling in her LLE down to her foot, but this was occuring prior to her TKA. Her main compliants are pain, weakness, swelling, stiffness, and poor sleep since her surgery. Future Testing and Treatments Planned Follow up 04/[address] Patton Treatment Goals Patient/Caregiver Goals Decrease pain, improve knee motion and strength, be able to sleep without discomfort Prior Functional Status Baseline Function- ADL's Independent Baseline Function- Mobility Independent Baseline Function- Gait FWW or spc for balance; up to 1/4 mi for gait distance Baseline Function- Recreation/Hobbies Gardening (hands and knees) Baseline Function- Other Stairs (no issue) Current Functional Impairments (Reported) Functional Limitations- Mobility/Gait No stairs due to limited motion and pain, no more than household ambulation Functional Limitations- Recreation/ Unable to garden Hobbies PT-OP-C Subjective Start: 04/28/23 10:41 Freq: Status: Active Protocol: Document 10/21/23 12:57 AB (Rec: 10/21/23 14:30 AB [id number]) OP-PT Subjective Patient Comments Patient Comments Patient reports having no pain start of session, reports the knee is getting better, but she doesn't have all her motion. Lacking 4 deg extension to 118 deg AROM left knee post warm up exercises start of session. PT-OP-D Balance Start: 04/28/23 10:41 Freq: Status: Active Protocol: Document 04/28/23 10:42 NM (Rec: 04/28/23 11:56 NM [id number]) OP-PT Balance Assessment Sitting Balance Static Sitting Balance Ability Normal Dynamic Sitting Balance Ability Normal Standing Balance Static Standing Balance Ability Good Dynamic Standing Balance Ability Fair Device Used FWW Standing Balance Comments Occasional CGA to steady during gait, changing JUVENCIO Denise Fall Scale Copyright Permission PT-OP-E Functional Tests Start: 04/28/23 10:41 Freq: Status: Active Protocol: Document 04/28/23 10:42 NM (Rec: 04/28/23 11:40 NM [id number]) Functional Tests Timed Up and Go (TUG) Score 41.5 sec Comments FWW, SBA PT-OP-F Manual Assessment Start: 04/28/23 10:41 Freq: Status: Active Protocol: Document 04/28/23 10:42 NM (Rec: 04/28/23 11:40 NM [id number]) Manual Assessments Soft Tissue Assessment Soft Tissue Mobility Assessment Soft tissue restrictions of L hamstring. Edema in L ankle, knee and calf. Will need scar mobilization to prevent adhesions once scar is closed and healed. Joint Mobility Assessment Joint Mobility Assessment Empty end feel with PROM, limited mobility PT-OP-G Mobility & Gait Start: 04/28/23 10:41 Freq: Status: Active Protocol: Document 04/28/23 10:42 NM (Rec: 04/28/23 11:40 NM [id number]) OP Gait Assessment Gait Gait Assistance Required: Standby Assistance Distance (Feet) 200 Able to Maintain Weight Bearing Status Yes During Gait Assistive Devices Assistive Device Gait Belt,Straight Cane,Front Wheeled Walker Gait Deviations General Gait Pattern Antalgic,Decreased Stride Length,Step-to Gait Factors Limiting Gait Function Factors Limiting Gait Function Decreased Activity Tolerance, Decreased Strength,Limited Range of Motion,Pain,Poor Balance Comments Gait Comments Primarily uses FWW for gait. Began using FWW for gait prior in Jun 2022 prior to surgery due to poor balance. PT-OP-H Neuro Start: 04/28/23 10:41 Freq: Status: Active Protocol: Document 04/28/23 10:42 NM (Rec: 04/28/23 11:40 NM [id number]) Sensation Evaluation Gross Sensation Gross Sensation WNL Comments Summary Comments LLE intact to light touch sensation in all dermatomes. PT-OP-J Posture/Palpation/Skin Start: 04/28/23 10:41 Freq: Status: Active Protocol: Document 04/28/23 10:42 NM (Rec: 04/28/23 11:40 NM [id number]) Posture Evaluation Position Standing Evaluation View Posterior Pelvis Posture Anteriorly Tilted Weight Distribution Weight Shifted Right,Decreased Wt.Bear on (L) Hip Posture (L) Externally Rotated Knee Posture (L) Genu Valgus,(R) Genu Valgus Patellar Posture (R) Superior Palpation Assessment Location L knee Palpation Location posterior knee, posterior calf , lateral and medial knee Palpation Findings Edema,Soft Tissue Tightness, Tenderness Palpation Details Tenderness and edema along posterior knee and calf. No sign of DVT Tenderness and edema along medial and lateral knee near patella, femoral condyles near joint line Skin Assessment Edema Assessment L ankle Edema Type Non-Pitting Edema Degree 2+ Edema Appearance Discolored,Puffy Circumference Measurement L knee Location 5 cm above patella (60cm), sub patella (51 cm), 10 cm below patella (49 cm) Comments L malleoli (27 cm) with excess on lateral side, at patella ( 56.5 cm) Incisional Assessment Incision Appearance/Comments Bandage is CDI. Still wrapped so could not formally assess incision. No signs of infection around bandage. Will assess further once bandage removed PT-OP-K Range of Motion Start: 04/28/23 10:41 Freq: Status: Active Protocol: Document 10/16/23 13:50 NM (Rec: 10/16/23 14:33 NM [id number]) Knee Goniometric Range of Motion Knee Left Knee ROM WFL No Patient Position Supine Flexion Active (degrees) 118 Flexion Passive (degrees) 120 Extension Active (degrees) 2 Extension Passive (degrees) 1 Comments 10/16/23: 118 deg flexion, -2 deg ext 09/09/23: 118 deg flexion 08/13/23: 116 flexion, 0 deg extension 07/14/23: 115 deg flex, 2 deg ext lacking 07/04/23: lacks 3 deg ext with active quad contraction; 115 AROM knee flex 05/30/23: 110 deg flex AROM, 5 deg ext AROM 05/30/23: lacking 5 deg ext with active quad contraction @IE: flex 80 deg, ext -10 deg PT-OP-M Strength Start: 04/28/23 10:41 Freq: Status: Active Protocol: Document 10/16/23 13:50 NM (Rec: 10/16/23 14:33 NM [id number]) Hip Strength Hip Manual Muscle Testing Left Flexion (L2) 4 Good Extension (S1) 4+ Good+ Abduction 4+ Good+ External Rotation 4+ Good+ Internal Rotation 4+ Good+ Comments Assessed in sitting due to knee pain 10/16/23: 4+/5 for flex/ext, 4/ 5 for flex 08/13/23: 4/5 for all 07/14/23, 07/04/23: 4-/5 for all motions, no pain IE: 3+/5 for all Knee Strength Knee Manual Muscle Testing Left Flexion (S2) 4+ Good+ Extension (L3) 4+ Good+ Comments 10/16/23: 4+/5 09/09/23: 4/5 knee ext, 4+/5 knee flex 08/13/23: 4+/5 for flex, 4/5 ext 07/04/23: 4/5, no pain with resisted motion 05/30/23: 4/5 flex, 4-/5 ext @ IE: flex and ext 3/5 PT-OP-Q Treatments Start: 04/28/23 10:41 Freq: Status: Active Protocol: Document 10/21/23 12:57 AB (Rec: 10/21/23 14:30 AB [id number]) Cardio Equipment Recumbent Elliptical ([email or web address]) Duration (Minutes) 7 Resistance 5 Seat Position 6 Other LE and UE: Gym Equipment Shuttle Balance red Details 4's and stagger stance positions Reps/Duration 3 min Comments with and without visual scanning and head turns Therapeutic Exercises Supine Exercises long arc quad Side left Reps/Minutes 2X10 hamstring stretch with strap Supine Exercise Name from hooklying no strap Side left Reps/Minutes 60 seconds X 2 Comments verbal cues SLR Side left Resistance AROM Reps/Minutes X10 post hamstring stretch Heel slides Supine Exercise Name AROM Side left Reps/Minutes 10 Comments post manual therapy Sitting Exercises hip abduction Sitting Exercise Name 1. seated, 2. isometric Side bilateral Resistance level 4 blue band Equipment Used feet flat Reps/Minutes 1. 2x10, 2. 2x60 Comments Pt ed rationale of one minute hold for activation Standing Exercises Knee flexion mobilization/stretch Standing Exercise Name LLE elevated on 6 step, then fwd into knee flex stretch Side left Equipment Used 2nd step, B hand rail use Reps/Minutes 60 seconds hold X 3 Neuro Re-Education Treatment Balance Activities step up taps Details hands above parallel bars Reps/Duration X12 Comments CGA marching on blue cushion Details hands above parallel bars Equipment foam airex pad Reps/Duration 1x12 ea Comments CGA tandem stepping Details hands above parallel bars Reps/Duration 10 feet X6 Comments CGA PT-OP-R Modalities Start: 05/30/23 15:01 Freq: Status: Active Protocol: Document 05/30/23 13:54 NM (Rec: 05/30/23 15:07 NM [id number]) Electric Stimulation Electric Stimulation Biphasic Body Location L quad Duration (Minutes) 10 Intensity 18 Frequency 50 Pulse Width 300 Contraction Type Normal Ramp 1.0 Comments 5/5 cycle due to time to maximize contractions Performed in sitting (LAQ), supine (quad sets, SAQ). Skin normal color, intact/dry before, during, after tmt. Skin check after 3 min and at end of session. PT-OP-T Assessment and Plan Start: 04/28/23 10:41 Freq: Status: Active Protocol: Document 10/21/23 12:57 AB (Rec: 10/21/23 14:30 AB [id number]) Physical Therapy Assessment Goals Seven Impairment gait Impairment Unable to complete 6 MWT at IE Short Term Goal (STG) Pt will be able to complete a 6 MWT using LRAD in order to demo improved gait mechanics and activity tolerance for community ambulation. 05/30/23: 798 ft with FWW STG Duration 6 weeks MET Flight Engineer Instructor Goal (LTG) Pt will improve 6 MWT distance >800 ft using LRAD in order to demo improved gait mechanics and activity tolerance for community ambulation. 07/14/23: 646 ft with spc, 2 standing rest breaks 08/13/23: 588 ft with spc, reports feels more stiff 09/01/23: 640 ft with spc, 1 standing rest break 09/08/23: 796 ft 4WW, no rest breaks 10/16/23: 818 ft with spc LTG Duration 12 weeks MET updated goal 10/15 Six Impairment function Impairment LEFS Short Term Goal (STG) Pt will improve LEFS score by at least 9 points (MCID) in order to demo improved activity tolerance and strength. 05/30/23: 53/80 STG Duration 6 weeks MET Flight Engineer Instructor Goal (LTG) Pt will improve LEFS score by at least 18 points (2 MCID) in order to demo improved activity tolerance and strength. 05/30/23: 53/80 09/09/23: 50/80 LTG Duration 12 weeks MET Five Impairment Balance, function Impairment TUG 41.5 sec with FWW Short Term Goal (STG) Pt will decrease TUG score time to at least 30 seconds or less using LRAD in order to demo improved balance during gait and transfers, to decrease fall risk. 07/04/23: 18.4 sec 05/30/23: 21 sec STG Duration 6 weeks MET Flight Engineer Instructor Goal (LTG) Pt will decrease TUG score time to at least 15 seconds or less using LRAD in order to demo improved balance during gait and transfers, to decrease fall risk. 08/13/23: 18 sec, 17 sec, 16 sec 07/14/23: 16 sec FWW, 18 sec spc 07/04/23: 18.4 sec 09/09/23: 15.8 and 13.6 sec with 4WW, 18 and 16 and 15 sec with spc LTG Duration 12 weeks MET Four Impairment strength Impairment Knee flex 3 Short Term Goal (STG) Pt will improve L knee flex strength to at least 4-/5 in order to perform stairs and for propulsion during gait. 05/30/23: 4/5 knee flex STG Duration 6 weeks MET Flight Engineer Instructor Goal (LTG) Pt will improve L knee flex strength to at least 4+/5 in order to perform stairs and for propulsion during gait. 08/13/23: 4+/5 knee flexion 07/14/23, 07/04/23: 4/5 knee flex MMT LTG Duration 12 weeks MET Three Impairment Strength Impairment Knee ext 3/5 Short Term Goal (STG) Pt will improve L knee ext strength to at least 4-/5 in order to demo improved quad control for stability and TKE for gait. 05/30/23: 4-/5 MMT STG Duration 6 weeks MET Retirement Goal (LTG) Pt will improve L knee ext strength to at least 4+/5 in order to demo improved quad control for stability and TKE for gait. 10/16/23: 4+/5 09/09/23: 4/5 knee extension MMT 08/13/23: 4/5 knee extension 07/14/23, 07/04/24: 4/5 knee ext MMT; functionally limited during step up, squat LTG Duration 12 weeks MET Two Impairment ROM Impairment Knee ext 10 deg AROM (lacking) Short Term Goal (STG) Pt will improve L knee ext to at least 5 deg AROM in order to reach terminal knee extension during gait and improve knee stability during stairs/gait. 05/30/23: -5 deg knee ext but demos decreased quad activation STG Duration 6 weeks MET Retirement Goal (LTG) Pt will improve L knee ext to at least 1 deg in order to reach terminal knee extension during gait and improve knee stabiltiy during stairs/gait. 10/16/23: -2 deg ext 08/13/23: 0 deg extension 07/14/23: lacking 2 deg ext with quad set, heel elevated 07/04/23: 3 with quad set 06/26/23: 1 deg with quad set, heel elevated due to calf LTG Duration 12 weeks MET One Impairment ROM Impairment Knee flex 80 deg AROM Short Term Goal (STG) Pt will improve L knee flex to at least 100 deg AROM in order to demo improved knee flex ROM for stairs and gait. 06/16/23: 115 deg flex AROM 05/30/23: 110 deg flex AROM STG Duration 6 weeks MET Flight Engineer Instructor Goal (LTG) Pt will improve L knee flex to > 115 deg AROM in order to demo improved knee flex ROM for stairs, gait, and to be comparable to RLE. 10/16/23: 115 premamual to 118 deg post manual 09/15/23: 120 deg flexion 09/09/23:; 118 deg flexion 08/13/23: 116 deg knee flexion 07/04/23: 115 AROM MET; updated to > 115 deg 06/26/23: MET- 115 deg AROM pre- mob 118 post-mo LTG Duration 12 weeks MET; goal updated Assessment Summary Assessment Issued level blue band/sandeep level 4 blue band for seated hip abduction. Patient advised trial of every other day for HEP. Patient reports it feels good end of session. Physical Therapy Plan Frequency and Duration Frequency of Treatment 2x/Week Duration of treatment (weeks) 8 Plan of Care Start Date 09/09/23 Plan of Care End Date 11/07/23 Next Visit Focus/Plan Next Note Type Discharge Summary Next Visit Plan Next session: balance and HEP review for maintenance program . planned D/c in 1 visit Plan of care:Balance, continue with glute/quad strengthening and functional balance. Progress exercises and update HEP. Goal- independent and confident with spc, stairs Continue: leg press, cable LAQ (L only), hip 3 way (trial foam or slider), 6 step up, lateral 4 step up, functional balance training. Manual STM/ mobilization prn POC: gait training with cane prn (hurdles), continue 6 step up with hinge and lateral , leg press, strengthening quad with band. Balance training.
--- NOTE | 2023-10-24 14:52 | PT.OTN ---
Current Diagnoses Unilateral primary osteoarthritis, left knee (10/24/23) Physical Therapy Treatment Note PT-OP-A Visit Information Start: 04/28/23 10:41 Freq: Status: Active Protocol: Document 10/24/23 13:50 NM (Rec: 10/24/23 14:51 NM [id number]) Out-Patient Physical Therapy Visit Information Visit Information Visit Type Discharge Summary Visit Start Time 13:50 Visit Stop Time 14:30 Visit Number [id number] Evaluation Information Evaluation Date 04/28/23 PT-OP-B Current Condition Start: 04/28/23 10:41 Freq: Status: Active Protocol: Document 04/28/23 10:42 NM (Rec: 04/28/23 11:40 NM [id number]) Current Condition History of Current Condition Onset Date 04/18/23 Current Complaints pain, swelling, sleep History of Current Condition Pt presents to clinic with FWW s/p L TKA on 04/19. She is seeing Dr. Patton for her knee. Currently, pt still has her post-op dressings still on and is WBAT with a FWW. Pt has B knee OA, which led to the replacement. She had no pre-op PT. Prior to surgery, she was able to ambulate up to 1/4 mi due to pain, which is a decrease from her baseline which was 1 mi. She is planning on having the R knee replaced in a few months. Pt has steps leading up to her home which is covered by a ramp. She used a FWW for gait prior to surgery due to feeling like she had poor balance; she also has a spc that she uses occasional (not since surgery). Pt reports compliance with HEP from hospital, performing exercises 1-2x/day. She does report some tingling in her LLE down to her foot, but this was occuring prior to her TKA. Her main compliants are pain, weakness, swelling, stiffness, and poor sleep since her surgery. Future Testing and Treatments Planned Follow up 04/[address] Patton Treatment Goals Patient/Caregiver Goals Decrease pain, improve knee motion and strength, be able to sleep without discomfort Prior Functional Status Baseline Function- ADL's Independent Baseline Function- Mobility Independent Baseline Function- Gait FWW or spc for balance; up to 1/4 mi for gait distance Baseline Function- Recreation/Hobbies Gardening (hands and knees) Baseline Function- Other Stairs (no issue) Current Functional Impairments (Reported) Functional Limitations- Mobility/Gait No stairs due to limited motion and pain, no more than household ambulation Functional Limitations- Recreation/ Unable to garden Hobbies PT-OP-C Subjective Start: 04/28/23 10:41 Freq: Status: Active Protocol: Document 10/24/23 13:50 NM (Rec: 10/24/23 14:51 NM [id number]) OP-PT Subjective Patient Comments Patient Comments Pt reports that she is feeling very well and is wanting to discharge today. Reports she feels much stronger. She states she will miss PT. PT-OP-D Balance Start: 04/28/23 10:41 Freq: Status: Active Protocol: Document 04/28/23 10:42 NM (Rec: 04/28/23 11:56 NM [id number]) OP-PT Balance Assessment Sitting Balance Static Sitting Balance Ability Normal Dynamic Sitting Balance Ability Normal Standing Balance Static Standing Balance Ability Good Dynamic Standing Balance Ability Fair Device Used FWW Standing Balance Comments Occasional CGA to steady during gait, changing JUVENCIO Denise Fall Scale Copyright Permission PT-OP-E Functional Tests Start: 04/28/23 10:41 Freq: Status: Active Protocol: Document 04/28/23 10:42 NM (Rec: 04/28/23 11:40 NM [id number]) Functional Tests Timed Up and Go (TUG) Score 41.5 sec Comments FWW, SBA PT-OP-F Manual Assessment Start: 04/28/23 10:41 Freq: Status: Active Protocol: Document 04/28/23 10:42 NM (Rec: 04/28/23 11:40 NM [id number]) Manual Assessments Soft Tissue Assessment Soft Tissue Mobility Assessment Soft tissue restrictions of L hamstring. Edema in L ankle, knee and calf. Will need scar mobilization to prevent adhesions once scar is closed and healed. Joint Mobility Assessment Joint Mobility Assessment Empty end feel with PROM, limited mobility PT-OP-G Mobility & Gait Start: 04/28/23 10:41 Freq: Status: Active Protocol: Document 04/28/23 10:42 NM (Rec: 04/28/23 11:40 NM [id number]) OP Gait Assessment Gait Gait Assistance Required: Standby Assistance Distance (Feet) 200 Able to Maintain Weight Bearing Status Yes During Gait Assistive Devices Assistive Device Gait Belt,Straight Cane,Front Wheeled Walker Gait Deviations General Gait Pattern Antalgic,Decreased Stride Length,Step-to Gait Factors Limiting Gait Function Factors Limiting Gait Function Decreased Activity Tolerance, Decreased Strength,Limited Range of Motion,Pain,Poor Balance Comments Gait Comments Primarily uses FWW for gait. Began using FWW for gait prior in Jun 2022 prior to surgery due to poor balance. PT-OP-H Neuro Start: 04/28/23 10:41 Freq: Status: Active Protocol: Document 04/28/23 10:42 NM (Rec: 04/28/23 11:40 NM [id number]) Sensation Evaluation Gross Sensation Gross Sensation WNL Comments Summary Comments LLE intact to light touch sensation in all dermatomes. PT-OP-J Posture/Palpation/Skin Start: 04/28/23 10:41 Freq: Status: Active Protocol: Document 04/28/23 10:42 NM (Rec: 04/28/23 11:40 NM [id number]) Posture Evaluation Position Standing Evaluation View Posterior Pelvis Posture Anteriorly Tilted Weight Distribution Weight Shifted Right,Decreased Wt.Bear on (L) Hip Posture (L) Externally Rotated Knee Posture (L) Genu Valgus,(R) Genu Valgus Patellar Posture (R) Superior Palpation Assessment Location L knee Palpation Location posterior knee, posterior calf , lateral and medial knee Palpation Findings Edema,Soft Tissue Tightness, Tenderness Palpation Details Tenderness and edema along posterior knee and calf. No sign of DVT Tenderness and edema along medial and lateral knee near patella, femoral condyles near joint line Skin Assessment Edema Assessment L ankle Edema Type Non-Pitting Edema Degree 2+ Edema Appearance Discolored,Puffy Circumference Measurement L knee Location 5 cm above patella (60cm), sub patella (51 cm), 10 cm below patella (49 cm) Comments L malleoli (27 cm) with excess on lateral side, at patella ( 56.5 cm) Incisional Assessment Incision Appearance/Comments Bandage is CDI. Still wrapped so could not formally assess incision. No signs of infection around bandage. Will assess further once bandage removed PT-OP-K Range of Motion Start: 04/28/23 10:41 Freq: Status: Active Protocol: Document 10/24/23 13:50 NM (Rec: 10/24/23 14:51 NM [id number]) Knee Goniometric Range of Motion Knee Left Knee ROM WFL No Patient Position Supine Flexion Active (degrees) 118 Flexion Passive (degrees) 120 Extension Active (degrees) 2 Extension Passive (degrees) 1 Comments 10/24/23: -2 deg ext, 119 deg flex 10/16/23: 118 deg flexion, -2 deg ext 09/09/23: 118 deg flexion 08/13/23: 116 flexion, 0 deg extension 07/14/23: 115 deg flex, 2 deg ext lacking 07/04/23: lacks 3 deg ext with active quad contraction; 115 AROM knee flex 05/30/23: 110 deg flex AROM, 5 deg ext AROM 05/30/23: lacking 5 deg ext with active quad contraction @IE: flex 80 deg, ext -10 deg PT-OP-M Strength Start: 04/28/23 10:41 Freq: Status: Active Protocol: Document 10/24/23 13:50 NM (Rec: 10/24/23 14:51 NM [id number]) Hip Strength Hip Manual Muscle Testing Left Flexion (L2) 4 Good Extension (S1) 4+ Good+ Abduction 4+ Good+ External Rotation 4+ Good+ Internal Rotation 4+ Good+ Comments Assessed in sitting due to knee pain 10/24/23, 10/16/23: 4+/5 for flex/ext, 4/5 for flex 08/13/23: 4/5 for all 07/14/23, 07/04/23: 4-/5 for all motions, no pain IE: 3+/5 for all Knee Strength Knee Manual Muscle Testing Left Flexion (S2) 4+ Good+ Extension (L3) 4+ Good+ Comments 10/24/23, 10/16/23: 4+/5 09/09/23: 4/5 knee ext, 4+/5 knee flex 08/13/23: 4+/5 for flex, 4/5 ext 07/04/23: 4/5, no pain with resisted motion 05/30/23: 4/5 flex, 4-/5 ext @ IE: flex and ext 35 PT-OP-Q Treatments Start: 04/28/23 10:41 Freq: Status: Active Protocol: Document 10/24/23 13:50 NM (Rec: 10/24/23 14:51 NM [id number]) Gym Equipment Shuttle Recovery Bilateral Squats Details B squats Resistance 87# (3 navy) Shuttle Recovery Platform Stable Reps/Time 3x12; medium-hard Therapeutic Exercises Supine Exercises Heel slides Supine Exercise Name AROM Side left Reps/Minutes 2x10 Comments post manual therapy Standing Exercises hip 3 way Side bilateral Resistance lvl 2 band around thighs Equipment Used close SBA Reps/Minutes 1x10 ea Comments pain free, end of session, requires increased time Step up Standing Exercise Name 6 inch step Side left Equipment Used 1 rail use, flat hand R Reps/Minutes 2x10 ea Manual Therapy Treatment Soft Tissue Mobilization left knee Body Location quad Mobilization Type Rolling Intensity/Depth Moderate Body Position Hooklying Joint Mobilizations L knee Direction A-P with small tibial distraction Grade III Reps/Duration 6x30 Comments for knee flexion, pain free. Pt reports I really like this one 115 pre, 119 deg post Manual Techniques manual stretch Type w/ breathwork Comments Quad in sidelying, 1x60. PT blocking at hip, with knee flex to pt tolerance. Pain free, reports feels really good Neuro Re-Education Treatment Balance Activities hurdles Equipment 6 hurdles Reps/Duration prn hand support for balance Comments 1. fwd with 2 feet between ea chanel, 2 sets 2. lateral with 2 feet between ea chanel, 2 sets 3. fwd and bwd step overs, 10 rep ea foor CGA with 1 instance of min A to assist to prevent fall. Challenging for pt. Cued to maintain ankle DF for foot clearance Narrow JUVENCIO Details carioca Surface stable Equipment prn hand support for balance Reps/Duration 2x10 ft Comments Coordination challenging. More difficult for crossing leg in front vs behind pt Self-Care/Home Management Treatment Education Patient Education Home Exercise Program Other Education HEP: reviewed maintenance HEP, established ambulation program 3-5x/wk PT-OP-R Modalities Start: 05/30/23 15:01 Freq: Status: Active Protocol: Document 05/30/23 13:54 NM (Rec: 05/30/23 15:07 NM [id number]) Electric Stimulation Electric Stimulation Biphasic Body Location L quad Duration (Minutes) 10 Intensity 18 Frequency 50 Pulse Width 300 Contraction Type Normal Ramp 1.0 Comments 5/5 cycle due to time to maximize contractions Performed in sitting (LAQ), supine (quad sets, SAQ). Skin normal color, intact/dry before, during, after tmt. Skin check after 3 min and at end of session. PT-OP-T Assessment and Plan Start: 04/28/23 10:41 Freq: Status: Active Protocol: Document 10/24/23 13:50 NM (Rec: 10/24/23 14:51 NM [id number]) Physical Therapy Assessment Goals Seven Impairment gait Impairment Unable to complete 6 MWT at IE Short Term Goal (STG) Pt will be able to complete a 6 MWT using LRAD in order to demo improved gait mechanics and activity tolerance for community ambulation. 05/30/23: 798 ft with FWW STG Duration 6 weeks MET Nursing Home Goal (LTG) Pt will improve 6 MWT distance >800 ft using LRAD in order to demo improved gait mechanics and activity tolerance for community ambulation. 07/14/23: 646 ft with spc, 2 standing rest breaks 08/13/23: 588 ft with spc, reports feels more stiff 09/01/23: 640 ft with spc, 1 standing rest break 09/08/23: 796 ft 4WW, no rest breaks 10/16/23: 818 ft with spc LTG Duration 12 weeks MET updated goal 10/15 Six Impairment function Impairment LEFS 10 Short Term Goal (STG) Pt will improve LEFS score by at least 9 points (MCID) in order to demo improved activity tolerance and strength. 05/30/23: 53/80 STG Duration 6 weeks MET [facility] Goal (LTG) Pt will improve LEFS score by at least 18 points (2 MCID) in order to demo improved activity tolerance and strength. 05/30/23: 53/80 09/09/23: 50/80 10/24/23: 58/80 LTG Duration 12 weeks MET Five Impairment Balance, function Impairment TUG 41.5 sec with FWW Short Term Goal (STG) Pt will decrease TUG score time to at least 30 seconds or less using LRAD in order to demo improved balance during gait and transfers, to decrease fall risk. 07/04/23: 18.4 sec 05/30/23: 21 sec STG Duration 6 weeks MET Nursing Home Goal (LTG) Pt will decrease TUG score time to at least 15 seconds or less using LRAD in order to demo improved balance during gait and transfers, to decrease fall risk. 08/13/23: 18 sec, 17 sec, 16 sec 07/14/23: 16 sec FWW, 18 sec spc 07/04/23: 18.4 sec 09/09/23: 15.8 and 13.6 sec with 4WW, 18 and 16 and 15 sec with spc LTG Duration 12 weeks MET Four Impairment strength Impairment Knee flex 3/5 Short Term Goal (STG) Pt will improve L knee flex strength to at least 4-/5 in order to perform stairs and for propulsion during gait. 05/30/23: 4/5 knee flex STG Duration 6 weeks MET [facility] Goal (LTG) Pt will improve L knee flex strength to at least 4+/5 in order to perform stairs and for propulsion during gait. 08/13/23: 4+/5 knee flexion 07/14/23, 07/04/23: 4/5 knee flex MMT LTG Duration 12 weeks MET Three Impairment Strength Impairment Knee ext 3/5 Short Term Goal (STG) Pt will improve L knee ext strength to at least 4-/5 in order to demo improved quad control for stability and TKE for gait. 05/30/23: 4-/5 MMT STG Duration 6 weeks MET [facility] Goal (LTG) Pt will improve L knee ext strength to at least 4+/5 in order to demo improved quad control for stability and TKE for gait. 10/16/23: 4+/5 09/09/23: 4/5 knee extension MMT 08/13/23: 4/5 knee extension 07/14/23, 07/04/24: 4/5 knee ext MMT; functionally limited during step up, squat LTG Duration 12 weeks MET Two Impairment ROM Impairment Knee ext 10 deg AROM (lacking) Short Term Goal (STG) Pt will improve L knee ext to at least 5 deg AROM in order to reach terminal knee extension during gait and improve knee stability during stairs/gait. 05/30/23: -5 deg knee ext but demos decreased quad activation STG Duration 6 weeks MET Nursing Home Goal (LTG) Pt will improve L knee ext to at least 1 deg in order to reach terminal knee extension during gait and improve knee stabiltiy during stairs/gait. 10/16/23: -2 deg ext 08/13/23: 0 deg extension 07/14/23: lacking 2 deg ext with quad set, heel elevated 07/04/23: 3 with quad set 06/26/23: 1 deg with quad set, heel elevated due to calf LTG Duration 12 weeks MET One Impairment ROM Impairment Knee flex 80 deg AROM Short Term Goal (STG) Pt will improve L knee flex to at least 100 deg AROM in order to demo improved knee flex ROM for stairs and gait. 06/16/23: 115 deg flex AROM 05/30/23: 110 deg flex AROM STG Duration 6 weeks MET [facility] Goal (LTG) Pt will improve L knee flex to > 115 deg AROM in order to demo improved knee flex ROM for stairs, gait, and to be comparable to RLE. 10/16/23: 115 premamual to 118 deg post manual 09/15/23: 120 deg flexion 09/09/23:; 118 deg flexion 08/13/23: 116 deg knee flexion 07/04/23: 115 AROM MET; updated to > 115 deg 06/26/23: MET- 115 deg AROM pre- mob 118 post-mo LTG Duration 12 weeks MET; goal updated Progress Towards Goals Progress Towards Goals Goals Met Assessment Summary Assessment Pt tolerated session well. Session emphasis on reviewing and establishing maintenance HEP. Pt able to progress number of reps on leg press with improved form and tolerance. Pt significantly less discomfort in L quad for several sessions, but continues to have some tightness. Quad tightness reduced with soft tissue mobilization, stretching, and heel slides. Left knee flexion improved from 115 to 119 deg post manual treatment. During hurdles for balance training, pt is CGA with 1 instance of min A to prevent fall. Pt able to catch self after catching toes on chanel. Cued extensively for ankle dorsiflexion for improved foot clearance. Physical Therapy Plan Frequency and Duration Frequency of Treatment 2x/Week Duration of treatment (weeks) 8 Plan of Care Start Date 09/09/23 Plan of Care End Date 11/07/23 Therapeutic Interventions Therapeutic Interventions Aquatic Therapy,Balance Training,Gait Training,Home Exercise Program,Joint Mobilizations,Manual Therapy, Neuromuscular Re-education, Patient/Caregiver Education, Self-Care/Home Management,Soft Tissue Mobilization,Taping, Therapeutic Activities, Therapeutic Exercises Modalities Cold Pack/Ice Massage,Electric Stimulation,Hot Packs, Iontophoresis,Ultrasound, Vasopneumatic Devices Discharge Physical Therapy Discharge Reasons Goals Met Discharge Comments Pt has met all PT goals. She is requesting to discharge to [facility] due to good progression recently and her 's health issues. PT in agreement Next Visit Focus/Plan Next Visit Plan Discharge from PT
== END 2023-10-27 13:58 | disposition home or self-care (01) ==
LOC: PHYS 13:45
PROVIDERS: Family Provider Family Medicine; PCP Family Medicine; Referring Provider Orthopaedic Surgery Adult Reconstructive Orthopaedic Surgery; Visit Provider Orthopaedic Surgery Adult Reconstructive Orthopaedic Surgery
DX: M17.12 Unilateral primary osteoarthritis, left knee (principal)
CPT/HCPCS: 97032; 97110; 97112; 97116; 97140; 97161; 97535

== ENCOUNTER → 2024-04-13 14:39 | Outpatient (CLI) | payer MEDICARE, OTHER, SELFPAY ==
[2023-04-18 11:41] VITALS: BMI 43.9
--- NOTE | 2024-04-13 14:41 | DI.MG.S_ITS ---
BILATERAL DIGITAL SCREENING MAMMOGRAM 3D/2D WITH CAD: 04/13/2024 CLINICAL: Routine screening. Comparison is made to exams dated: 04/12/2021 mammogram, 04/14/2018 mammogram, and 08/08/2016 mammogram - [facility]. There are scattered areas of fibroglandular density (category b / 25%-50% glandular tissue). Current study was also evaluated with a Computer Aided Detection (CAD) system. No significant masses, calcifications, or other findings are seen in either breast. There has been no significant interval change. IMPRESSION: NEGATIVE There is no mammographic evidence of malignancy. A 1 year screening mammogram is recommended. Based on the Tyrer Cuzick model (a risk assessment model) the patient's lifetime risk is 5.1% and her 10 year risk is 2.8%. According to the ACR, ACS, and NCCN guidelines, an annual breast MRI exam along with mammogram is recommended if the patient's lifetime risk is 20% or greater. This exam was interpreted at Station ID: [id number]. NOTE: For mammograms, a report in lay terms will be sent to the patient. Approximately 15% of breast malignancies will not be visualized mammographically. In the management of a palpable breast mass, a negative mammogram must not discourage biopsy of a clinically suspicious lesion. Electronically Signed By: Jennifer Urbina M.D., Ph.D. andressa/oskar:04/15/2024 22:08:05 copy to: Henrique Gomes letter sent: Normal Exam ACR BI-RADS Category 1: Negative
== END ==
LOC: MAMMO 14:40
PROVIDERS: Family Provider Family Medicine; PCP Family Medicine; Referring Provider Family Medicine; Visit Provider Family Medicine
DX: Z12.31 Encounter for screening mammogram for malignant neoplasm of breast (principal)
CPT/HCPCS: 77063; 77067

== ENCOUNTER → 2024-05-28 09:12 | Outpatient (CLI) | payer MEDICARE, OTHER, SELFPAY ==
[2023-04-18 11:41] VITALS: BMI 43.9
[2024-05-28 09:58] LABS: Influenza A - CEPHEID Flu A NEGATIVE (NEGATIVE); Influenza B - CEPHEID Flu B NEGATIVE (NEGATIVE); Respiratory Syncytial Virus POSITIVE (Negative)
[2024-05-28 10:01] LABS: COVID-19 CEPHEID 4-PLEX PCR Negative (Negative)
== END ==
PROVIDERS: Family Provider Family Medicine; PCP Family Medicine; Visit Provider Nurse Practitioner Family
DX: R05.9 Cough, unspecified (principal)
CPT/HCPCS: 0241U

== ENCOUNTER 2024-11-05 13:21 | Inpatient (IN) | payer MEDICARE, SELFPAY ==
[2023-04-18 11:41] VITALS: BMI 43.9
[2024-11-05] VITALS (14 sets, daily range): BP systolic 104–146; BP diastolic 56–77; PULSE 52–87; RESP 19–342; TEMP 36.2–37; O2SAT 91–97; BMI 37.0
--- NOTE | 2024-11-05 13:33 | DI.RAD.S_ITS ---
PROCEDURE: XR CHEST 1V INDICATIONS: Shortness of breath TECHNIQUE: One view of the chest was acquired. COMPARISON: None. FINDINGS: Surgical changes and devices: None. Lungs and pleura: Extensive airspace opacity are noted scattered in right hemithorax. Small right pleural effusion is also likely present. No pneumothorax. Left lung is clear. Mediastinum: Mediastinal contours appear normal. Heart size is normal. Bones and chest wall: No suspicious bony lesions. Overlying soft tissues appear unremarkable. IMPRESSION: Finding is suggestive of extensive right-sided pulmonary infiltrates and small right pleural effusion. No pneumothorax. Dictated by: Pineda Reddy M.D. on 11/05/2024 at 14:16 Approved by: Pineda Reddy M.D. on 11/05/2024 at 14:16
--- NOTE | 2024-11-05 13:42 | EKG_ITS ---
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
--- NOTE | 2024-11-05 13:56 | PC.NURSE ---
lower extremity swelling with mild pitting edema. Pt reports heart is healthy and no issues. pt states she has had slight mucus when she coughs but states she feels like it is getting caught in her throat. diminished breath sounds posteriorly. pt on 2L NC satting approx 91% in ER. States she is not on oxygen at home. Pt states she was seen at [facility] and states breathing treatments felt like they helped. Pt reports she has no cp.
[2024-11-05 14:00] LABS: Add Manual Diff / Slide Review NO; Basophils Absolute Auto 100 /uL (0-100); Basophils Percent Auto 1.1 % (0-2); Eosinophils Absolute Auto 200 /uL (0-450); Eosinophils Percent Auto 1.8 % (2-4); Hematocrit 44.7 % (36-46); Hemoglobin 15.1 g/dL (12.0-16.0); Lymphocytes Absolute Auto 1100 /uL (1100-4500); Lymphocytes Percent Auto 8.9 % (25-40); Mean Corpuscular HGB Conc 33.9 % (30-36); Mean Corpuscular Hemoglobin 32.2 PG (26-34); Mean Corpuscular Volume 95.1 fL (80-100); Monocytes Absolute Auto 600 /uL (0-900); Monocytes Percent Auto 4.7 % (3-14); Neutrophils Absolute Auto 10600 /uL (1500-7000); Neutrophils Percent Auto 83.5 % (50-75); Platelet Count 308 X10^3/uL (150-400); Red Cell Distribution Width 15.2 % (11.6-14.8); White Blood Cell Count 12.7 X10^3/uL (4.5-11.0)
[2024-11-05 14:06] LABS: INR 1.2 (0.9-1.3); Prothrombin Time 13.9 SECONDS (9.4-12.5)
[2024-11-05 14:11] LABS: Alanine Aminotransferase 25 IU/L (<35); Albumin 2.9 g/dL (3.5-5.0); Albumin Globulin Ratio 0.7 (1.0-2.8); Alkaline Phosphatase 288 U/L (38-126); Aspartate Aminotransferase 52 IU/L (14-36); BUN Creatinine Ratio 25.5 (6-22); Bilirubin Total 0.7 mg/dL (0.2-1.3); Blood Urea Nitrogen 13 mg/dL (7-17); Calcium 8.5 mg/dL (8.4-10.2); Carbon Dioxide 24 mmol/L (22-32); Chloride 106 mmol/L (98-107); Estimated Glomerular Filt Rate > 60 mL/min (>60); Glucose 125 mg/dL (70-99); HEMOLYSIS < 15 (0-50); Lactate (Lactic Acid) 3.2 mmol/L (0.7-2.1); Potassium 3.5 mmol/L (3.4-5.1); Sodium 139 mmol/L (137-145); Total Protein 6.9 g/dL (6.3-8.2)
[2024-11-05 14:23] LABS: NT-proBNP (BNP-Adult 18+) 465 pg/mL (<125); Troponin I < 0.012 ng/mL (0.01-0.034)
--- NOTE | 2024-11-05 14:59 | ED_ITS ---
HPI - SOB/Dyspnea General Chief Complaint: Shortness of Breath/Dyspnea Stated Complaint: SOB low oxygen cough sent by walk in Time Seen by Provider: 11/05/24 14:29 Source: patient, RN notes reviewed and old records reviewed Mode of arrival: Wheelchair Limitations: no limitations History of Present Illness HPI Narrative: 69-year-old female history of depression denies any other medical issues states for the past week and a half developed initially little bit of a cough that has been nonproductive and then became increasingly short of breath initially with exertion and now even at rest. Patient states no chest pain but it was has a little tightness. She states cough has not become productive. No hemoptysis. She was felt flushed at times but no fevers that she was aware. She states little bit of nasal congestion. Denies any abdominal back or flank pain. No issues with bowel movements such as diarrhea or constipation. No new swelling in extremities. No new urinary symptoms. Patient states he takes medication for depression and sometimes CBD pills for pain secondary to a prior knee replacement. States no hypertension, no diabetes, no dyslipidemia no prior strokes or heart attacks. States her knee surgery was a year and a half ago. No tobacco, has a 1 or 2 beers daily, no recreational drugs. Dr. Menezes is her primary care physician. Patient states no long distance travel. No estrogen. Related Data Previous Rx's ?Medication ?Instructions ?Recorded cholecalciferol (vitamin D3) 125 125 mcg PO DAILY #90 tabs 04/01/23 mcg (5,000 unit) tablet sertraline 50 mg tablet (Zoloft) 75 mg (1.5 x 50 mg) P O DAILY #135 01/07/24 tabs benzonatate 200 mg capsule 200 mg PO TID #30 caps 01/17 Allergies Allergy/AdvReac Type Severity Reaction Status Date / Time codeine AdvReac Intermediate Hallucinati Verified 11/05/24 13:24 ons hyaluronate sodium, AdvReac Mild made me Verified 11/05/24 13:24 stabilized freak out Review of Systems Review of Systems ROS Unobtainable: All systems reviewed & are unremarkable except as noted in HPI and below Patient History Medical History History of COVID-19 (~09/2022) Osteoarthritis Facet arthropathy, lumbar Herniated nucleus pulposus, L4-5 Degenerative joint disease of knee Lumbar radiculopathy Lumbar spinal stenosis Elevated liver enzymes Neuroforaminal stenosis of lumbar spine Lumbar spondylosis Leg numbness Chronic cough Asthma Shoulder bursitis Chronic back pain Carpal tunnel syndrome Ankle pain Measles Chicken pox Vertigo Painful menstrual periods Heavy menstrual period Diabetes insipidus Hypertension Ectopic breast tissue Depression Surgical History History of surgery (10/29/18) Anesthesia Hx of Achilles tendon repair (~2004) History of Family History Father Gallstones Diabetes mellitus Mother Diabetes mellitus Hyperlipidemia Hypertension Mental health problem Sister Diabetes mellitus Heart disease Mental health problem Grandfather Heart disease Grandmother Heart disease Brother Heart disease Diabetes mellitus Hyperlipidemia Hypertension Family/Other Colorectal cancer Brother Cirrhosis Social History marital status: household members: spouse and children occupational status: previously employed Smoking Status: Never smoker alcohol intake: current substance use type: does not use Smoking Status: Never smoker alcohol intake frequency: a few times a week Exam Narrative Exam Narrative: GENERAL: Alert and oriented x three, female in bvle-tl-bopmjaes distress. HEENT: Head normocephalic, atraumatic, EOMI, pupils reactive, face symmetric, moist mucous membranes NECK: Supple, full range of motion CARDIOVASCULAR: Regular rate and rhythm without murmurs, rubs or gallops. No JVD. No edema bilateral lower extremities. RESPIRATORY: Breath sounds equal bilaterally, no wheeze on exam, patient was crackles in the right, less appreciated in the left. Mild tachypnea. No accessory muscle use. Patient is on 2 L nasal cannula which he states has been very helpful. ABDOMEN: Soft, nontender. Normoactive bowel sounds all 4 quadrants. No guarding or rebound, rigidity, no mass : No CVA tenderness EXTREMITIES: Normal range of motion, no clubbing or edema. Neurovascularly intact NEUROLOGICAL: Cranial nerves II through XII grossly intact. Moving all extremities SKIN: Warm, dry, no petechiae, no rashes or lesions. Initial Vital Signs Initial Vital Signs: Vital Signs Temperature 98.6 F 11/05/24 13:24 Pulse Rate 79 11/05/24 13:24 Respiratory Rate 24 11/05/24 13:24 Blood Pressure 112/58 L 11/05/24 13:24 Pulse Oximetry 91 11/05/24 13:24 Oxygen Delivery Method Nasal Cannula 11/05/24 13:24 Oxygen Flow Rate 2 11/05/24 13:24 Course Orders Ordered: ED Orders 11/05/24 13:33 XR chest 1V Stat EKG-12 Lead Stat Measure peak expiratory flow STAT RT Consult Eval and Treat STAT 11/05/24 13:47 Complete Blood Count AUTO DIFF Stat Comprehensive Metabolic Panel Stat Lactate (Lactic Acid) Stat NT-proBNP (BNP-Adult 18+) Stat Prothrombin Time INR Stat Troponin I Stat Acetaminophen (Acetaminophen 325 Mg Tablet) 650 mg PO Q6H PRN PRN Reason: Fever/Mild Pain (1-3) Bisacodyl (Bisacodyl 10 Mg Supp) 10 mg TX DAILY PRN PRN Reason: Constipation Heparin Sodium (Porcine) (Heparin 5,000 Unit/Ml Vial) 5,000 unit SUBCUT BID LYUBOV Piperacillin Sod/Tazobactam (Sod 4.5 gm/ Sodium Chloride) 100 mls @ 25 mls/hr IV Q8H LYUBOV Magnesium Hydroxide (Magnesium Hydroxide 30 Ml Udc) 30 ml PO DAILY PRN PRN Reason: Constipation Naloxone HCl (Naloxone 0.4 Mg/Ml Vial) 0.2 mg IV Q2MIN PRN PRN Reason: Opiate Reversal Ondansetron HCl (Ondansetron 4 Mg/2 Ml Inj) 4 mg IV Q8HR PRN PRN Reason: Nausea And Vomiting Discontinued Medications Ceftriaxone Sodium 1,000 mg/ (Sodium Chloride) 100 mls @ 200 mls/hr IV NOW ONE Stop: 11/05/24 15:08 Last Admin: 11/05/24 15:23 Dose: 200 mls/hr Azithromycin 500 mg/ Dextrose 250 mls @ 250 mls/hr IV NOW ONE Stop: 11/05/24 15:08 Vital Signs Vital signs: Vital Signs - 8 hr 11/05/24 13:24 11/05/24 13:43 11/05/24 13:50 Temperature 98.6 F Pulse Rate 79 78 Respiratory Rate 24 Blood Pressure 112/58 L 138/76 Pulse Oximetry 91 93 Oxygen Delivery Method Nasal Cannula Oxygen Flow Rate 2 11/05/24 13:50 11/05/24 14:00 11/05/24 14:00 Temperature Pulse Rate 79 70 Respiratory Rate 342 H 24 Blood Pressure 128/61 Pulse Oximetry 93 92 Oxygen Delivery Method Oxygen Flow Rate 11/05/24 14:30 11/05/24 14:30 Temperature Pulse Rate 64 Respiratory Rate 20 Blood Pressure 128/62 Pulse Oximetry 93 Oxygen Delivery Method Oxygen Flow Rate MDM - SOB/Dyspnea Lab Data 11/05/24 13:47 11/05/24 13:47 Labs: Lab Results 11/05/24 Range/Units 13:47 WBC 12.7 H (4.5-11.0) X10^3/uL RBC 4.70 (4.0-5.2) X10^6/uL Hgb 15.1 (12.0-16.0) g/dL Hct 44.7 (36-46) % MCV 95.1 (80-100) fL MCH 32.2 (26-34) PG MCHC 33.9 (30-36) % RDW 15.2 H (11.6-14.8) % Plt Count 308 (150-400) X10^3/uL Neut % (Auto) 83.5 H (50-75) % Lymph % (Auto) 8.9 L (25-40) % [place] % (Auto) 4.7 (3-14) % Eos % (Auto) 1.8 L (2-4) % Baso % (Auto) 1.1 (0-2) % Neut # (Auto) 04169 H (5586-9893) /uL Lymph # (Auto) 1100 (2716-1246) /uL [place] # (Auto) 600 (0-900) /uL Eos # (Auto) 200 (0-450) /uL Baso # (Auto) 100 (0-100) /uL PT 13.9 H (9.4-12.5) SECONDS INR 1.2 (0.9-1.3) Sodium 139 (137-145) mmol/L Potassium 3.5 (3.4-5.1) mmol/L Chloride 106 (98-107) mmol/L Carbon Dioxide 24 (22-32) mmol/L BUN 13 (7-17) mg/dL Creatinine 0.51 L (0.52-1.04) mg/dL Estimated GFR > 60 (>60) mL/min BUN/Creatinine Ratio 25.5 H (6-22) Glucose 125 H (70-99) mg/dL Lactate 3.2 H (0.7-2.1) mmol/L Calcium 8.5 (8.4-10.2) mg/dL Total Bilirubin 0.7 (0.2-1.3) mg/dL AST 52 H (14-36) IU/L ALT 25 (<35) IU/L Alkaline Phosphatase 288 H (38-126) U/L Troponin I < 0.012 (0.01-0.034) ng/mL NT-Pro-B Natriuret Pep 465 H (<125) pg/mL Total Protein 6.9 (6.3-8.2) g/dL Albumin 2.9 L (3.5-5.0) g/dL Globulin 4.0 (1.7-4.1) g/dL Albumin/Globulin Ratio 0.7 L (1.0-2.8) ECG Data Attestation: I personally reviewed and interpreted this ECG as follows: Interpretation: Sinus rhythm rate of 78 TX 168 QRS [address] No acute [address] elevation or depression. Patient was prior from 03/27/2023 which shows sinus rhythm, no acute ST changes appreciated. [facility] Narrative Medical decision making narrative: EKG sinus rhythm no acute ST changes appears similar to prior White count of 12 7 hemoglobin of 15 platelets of 308, INR is 1.2 electrolytes are normal BUN and creatinine are normal, glucose is 125 lactate is 3 2 troponins less than 0.012 with a BNP of 465, LFTs are negative. Chest x-ray shows extensive right-sided pulmonary infiltrate small right pleural effusion. Patient's history is workup concerning for community-acquired pneumonia, was started on IV antibiotics. Based on age, patient does not appear to meet septic criteria did not receive a 30 cc/kilos bolus. Spoke with the hospitalist Dr. Lunsford at [phone] accepts for admission. Discharge Plan Departure Patient Disposition: Admitted As Inpatient Clinical Impression: Pneumonia, Acute hypoxemic respiratory failure Admit Date/Time: 11/05/24 15:27 Admit Provider: Porter Lunsford
[2024-11-05] MEDS: cefTRIAXone 1,000 MG in SODIUM CHLORIDE 0.9% 100 ML 200 MG IV (15:23)
[2024-11-05 15:29] LABS: Reflexed Lactate in 2 Hours Y
[2024-11-05] MEDS: AZITHROMYCIN 500 MG in DEXTROSE 5% IN WATER 250 ML 250 MG IV (16:14)
[2024-11-05 16:18] LABS: Lactate 2HR (Lactic Acid Rflx) 1.6 mmol/L (0.7-2.1)
--- NOTE | 2024-11-05 17:52 | P.HP_ITS ---
History of Present Illness History of Present Illness Date Patient Seen: 11/05/24 Chief complaint: SOB low oxygen cough sent by walk in Narrative: Chief complaint: Cough dyspnea on exertion and hypoxic respiratory failure secondary to right- sided pneumonia with lactic acidosis History of present illness: 11/05: 69-year-old female history of depression denies any other medical issues states for the past week and a half developed initially little bit of a cough that has been nonproductive and then became increasingly short of breath initially with exertion and now even at rest. Patient states no chest pain but it was has a little tightness. She states cough has not become productive. No hemoptysis. She was felt flushed at times but no fevers that she was aware. She states little bit of nasal congestion. Denies any abdominal back or flank pain. No issues with bowel movements such as diarrhea or constipation. No new swelling in extremities. No new urinary symptoms. Patient states he takes medication for depression and sometimes CBD pills for pain secondary to a prior knee replacement. States no hypertension, no diabetes, no dyslipidemia no prior strokes or heart attacks. States her knee surgery was a year and a half ago. No tobacco, has a 1 or 2 beers daily, no recreational drugs. Dr. Menezes is her primary care physician. Patient states no long distance travel. No estrogen. Past medical, past surgical, family, social history, medications please see bottom of the note Review of systems: No headache diplopia blurred vision No chest pains palpitations No nausea vomiting diarrhea No urinary symptoms Physical exam: Elderly female very pleasant HEENT unremarkable Lungs with coarse rales throughout right lung field left is clear Heart sounds distant no murmurs appreciated Abdomen nondistended nontender Extremities no edema Neuro nonfocal Objective lab and imaging please see bottom of the note Assessment and plan: Extensive right-sided pneumonia with leukocytosis and lactic acidosis and acute hypoxic respiratory failure * Blood culture, sputum culture, initial antibiotics Zosyn consider deescalating depending on further history to high-dose ceftriaxone and azithromycin * Supplemental oxygen * Pulmonary toilet * IV fluid resuscitation and serial lactic acid DVT prophylaxis * Subcutaneous heparin Code status: * Full code [facility] Medical History History of COVID-19 (~09/2022) Osteoarthritis Facet arthropathy, lumbar Herniated nucleus pulposus, L4-5 Degenerative joint disease of knee Lumbar radiculopathy Lumbar spinal stenosis Elevated liver enzymes Neuroforaminal stenosis of lumbar spine Lumbar spondylosis Leg numbness Chronic cough Asthma Shoulder bursitis Chronic back pain Carpal tunnel syndrome Ankle pain Measles Chicken pox Vertigo Painful menstrual periods Heavy menstrual period Diabetes insipidus Hypertension Ectopic breast tissue Depression Surgical History History of surgery (10/29/18) Anesthesia Hx of Achilles tendon repair (~2004) History of Family History Father Gallstones Diabetes mellitus Mother Diabetes mellitus Hyperlipidemia Hypertension Mental health problem Sister Diabetes mellitus Heart disease Mental health problem Grandfather Heart disease Grandmother Heart disease Brother Heart disease Diabetes mellitus Hyperlipidemia Hypertension Family/Other Colorectal cancer Brother Cirrhosis Social History marital status: household members: spouse and children occupational status: previously employed Smoking Status: Never smoker alcohol intake: current substance use type: does not use Meds Home Medications and Allergies Home Medications ?Medication ?Instructions ?Recorded ?Confirmed ?Type cholecalciferol (vitamin D3) 125 125 mcg PO DAILY #90 tabs 04/01/23 11/05/24 Rx mcg (5,000 unit) tablet sertraline 50 mg tablet (Zoloft) 75 mg (1.5 x 50 mg) P O DAILY #135 01/07/24 11/05/24 Rx tabs ibuprofen 600 mg tablet (IBU) 600 mg PO Q6-8H PRN feve r or pain 11/05/24 11/05/24 History Allergies Allergy/AdvReac Type Severity Reaction Status Date / Time codeine AdvReac Intermediate Hallucinati Verified 11/05/24 13:24 ons hyaluronate sodium, AdvReac Mild made me Verified 11/05/24 13:24 stabilized freak out Exam Vital Signs (past 8 hours): - 11/05/24 13:24 11/05/24 13:43 11/05/24 13:50 Temperature 98.6 F Pulse Rate 79 78 Respiratory Rate 24 Blood Pressure 112/58 L 138/76 Pulse Oximetry 91 93 Oxygen Delivery Method Nasal Cannula Oxygen Flow Rate 2 11/05/24 13:50 11/05/24 14:00 11/05/24 14:00 Temperature Pulse Rate 79 70 Respiratory Rate 342 H 24 Blood Pressure 128/61 Pulse Oximetry 93 92 Oxygen Delivery Method Oxygen Flow Rate 11/05/24 14:30 11/05/24 14:30 11/05/24 15:00 Temperature Pulse Rate 64 61 Respiratory Rate 20 26 H Blood Pressure 128/62 Pulse Oximetry 93 93 Oxygen Delivery Method Nasal Cannula Oxygen Flow Rate 2 11/05/24 15:01 11/05/24 15:01 11/05/24 15:30 Temperature Pulse Rate 59 L Respiratory Rate 25 H Blood Pressure 118/56 L 128/69 Pulse Oximetry 93 Oxygen Delivery Method Oxygen Flow Rate 11/05/24 15:30 11/05/24 16:00 11/05/24 16:00 Temperature Pulse Rate 69 70 Respiratory Rate 30 H 28 H Blood Pressure 134/67 Pulse Oximetry 93 93 Oxygen Delivery Method Nasal Cannula Oxygen Flow Rate 2 11/05/24 16:30 11/05/24 16:30 Temperature Pulse Rate 62 Respiratory Rate 25 H Blood Pressure 119/57 L Pulse Oximetry 93 Oxygen Delivery Method Nasal Cannula Oxygen Flow Rate 2 Oxygen Delivery Method Nasal Cannula Oxygen Flow Rate 2 Objective Labs 11/05/24 13:47 11/05/24 13:47 Labs: Laboratory Results - last 24 hr 11/05/24 11/05/24 13:47 16:00 WBC 12.7 H RBC 4.70 Hgb 15.1 Hct 44.7 MCV 95.1 MCH 32.2 MCHC 33.9 RDW 15.2 H Plt Count 308 Neut % (Auto) 83.5 H Lymph % (Auto) 8.9 L [place] % (Auto) 4.7 Eos % (Auto) 1.8 L Baso % (Auto) 1.1 Neut # (Auto) 52924 H Lymph # (Auto) 1100 [place] # (Auto) 600 Eos # (Auto) 200 Baso # (Auto) 100 PT 13.9 H INR 1.2 Sodium 139 Potassium 3.5 Chloride 106 Carbon Dioxide 24 BUN 13 Creatinine 0.51 L Estimated GFR > 60 BUN/Creatinine Ratio 25.5 H Glucose 125 H Lactate 3.2 H 1.6 Calcium 8.5 Total Bilirubin 0.7 AST 52 H ALT 25 Alkaline Phosphatase 288 H Troponin I < 0.012 NT-Pro-B Natriuret Pep 465 H Total Protein 6.9 Albumin 2.9 L Globulin 4.0 Albumin/Globulin Ratio 0.7 L Assessment & Plan Time-Based Coding :: 55 minutes spent with patient and on the chart (including review of chart, obtaining history, exam, reviewing outside data, placing orders, documenting exam and treatment plan, and counseling patient). Quality VTE Deep Vein Thrombosis/Pulmonary Embolism Present on Admission: No MIPS - Admit I confirm the patient?s Advance Care Plan is present, Code status is documented, Surrogate decision maker is in patient?s record [If Yes, STOP here]: Yes MIPS - Meds 'Current medications' to include all prescriptions, [id number] products, herbals, cannabis/cannabidiol products, and vitamin/mineral/dietary (nutritional) supplements. I have utilized all available resources to obtain, update, or review the patient?s current medications. [If Yes, STOP here]: Yes
[2024-11-05] MEDS: LACTATED RINGERS 861.83 ML IV (18:00)
[2024-11-05] MEDS: ACETAMINOPHEN 325 MG TABLET 650 MG PO (18:07)
[2024-11-05] MEDS: PIPERACILLIN/TAZO 4.5 GM in SODIUM CHLORIDE 0.9% 100 ML IV (18:12)
[2024-11-05] MEDS: HEPARIN 5,000 UNIT/ML VIAL 5000 UNIT SUBCUT (20:36)
[2024-11-05 23:42] LABS: Lactate (Lactic Acid) 1.6 mmol/L (0.7-2.1)
[2024-11-06] MEDS: PIPERACILLIN/TAZO 4.5 GM in SODIUM CHLORIDE 0.9% 100 ML IV ×4 (00:12→23:57)
[2024-11-06 00:32] VITALS: BP 128/64; PULSE 53; RESP 16; TEMP 36.5; O2SAT 92
[2024-11-06 06:00] VITALS: BP 128/87; PULSE 73; RESP 19; TEMP 36.7; O2SAT 90
[2024-11-06] MEDS: ACETAMINOPHEN 325 MG TABLET 650 MG PO ×2 (07:57→20:32)
[2024-11-06] MEDS: HEPARIN 5,000 UNIT/ML VIAL 5000 UNIT SUBCUT ×2 (08:33→20:31)
[2024-11-06] MEDS: CHOLECALCIFEROL (VITAMIN D3) 5,000 UNIT TABLET 5000 UNIT PO (08:33)
[2024-11-06] MEDS: SERTRALINE 50 MG TABLET 75 MG PO (08:34)
--- NOTE | 2024-11-06 09:00 | CM.DANOTE ---
Initial DCP Assessment Visit Note Reviewed EMR and team rounds for pt's medical status and updates. Met with pt at bedside to introduce self and role, pt was found to be alert/oriented, able to share her plan for home d/c with spouse's assistance once she's medically stable. Pt resides modified independently with spouse in their own home in [place]. Her spouse will transport her home at d/c. No CM d/c assistance or resource needs are indicated at this time. Payor: [employer] PCP: Dr. Menezes Pt is a 69 year-old F who presented to the ED yesterday afternoon with c/o worsening cough/SOB over the last week. Chest x-ray confirmed extensive R-sided pneumonia and effusion. She was started on IV antibiotics and admitted for further tx and evaluation. DCP will continue to monitor for any further d/c resource or assistance needs. Discharge Planning/Care Management CM Discharge Assessment Start: 11/05/24 16:56 Freq: Status: Active Protocol: Document 11/06/24 08:56 DPL (Rec: 11/06/24 08:59 DPL [id number]) Discharge Planning Assessment Assigned Discharge ISA Zuniga [employer] Advance Directives? No History Provided By Patient,Medical Record Has Patient been No admitted in last 30 days? Prior Living House Arrangements Household Members spouse,children Type of Drives own vehicle transporation used prior to admit Independent with ADL No: modified independent with walker or cane 's Is patient alert and Yes oriented? DME Already Rented / FWW / Walker,Cane Owned Comment No identified home d/c needs at this time. Barriers to No Discharge Discharge Plan Home Referrals Initiated None needed Whiteboard Updated Yes in Patient Room with name and ext. # of [employer] Specialist Review Status In Process Please Provide Date 11/06/24 Initial DC Assessment Was Performed
[2024-11-06 12:00] VITALS: BP 132/66; PULSE 62; RESP 18; TEMP 36.1; O2SAT 90
[2024-11-06 13:32] LABS: Add Manual Diff / Slide Review NO; Basophils Absolute Auto 100 /uL (0-100); Basophils Percent Auto 0.6 % (0-2); Eosinophils Absolute Auto 100 /uL (0-450); Eosinophils Percent Auto 1.1 % (2-4); Hematocrit 39.6 % (36-46); Hemoglobin 13.6 g/dL (12.0-16.0); Lymphocytes Absolute Auto 1300 /uL (1100-4500); Lymphocytes Percent Auto 12.9 % (25-40); Mean Corpuscular HGB Conc 34.3 % (30-36); Mean Corpuscular Hemoglobin 32.6 PG (26-34); Mean Corpuscular Volume 95.1 fL (80-100); Monocytes Absolute Auto 600 /uL (0-900); Monocytes Percent Auto 6.3 % (3-14); Neutrophils Absolute Auto 8000 /uL (1500-7000); Neutrophils Percent Auto 79.1 % (50-75); Platelet Count 253 X10^3/uL (150-400); Red Blood Cell Count 4.16 X10^6/uL (4.0-5.2); White Blood Cell Count 10.2 X10^3/uL (4.5-11.0)
--- NOTE | 2024-11-06 16:04 | P.PN_ITS ---
Subjective Subjective Date Patient Seen: 11/06/24 Interval history: Chief complaint: Cough dyspnea on exertion and hypoxic respiratory failure secondary to right- sided pneumonia with lactic acidosis History of present illness: 11/05: 69-year-old female history of depression denies any other medical issues states for the past week and a half developed initially little bit of a cough that has been nonproductive and then became increasingly short of breath initially with exertion and now even at rest. Patient states no chest pain but it was has a little tightness. She states cough has not become productive. No hemoptysis. She was felt flushed at times but no fevers that she was aware. She states little bit of nasal congestion. Denies any abdominal back or flank pain. No issues with bowel movements such as diarrhea or constipation. No new swelling in extremities. No new urinary symptoms. Patient states he takes medication for depression and sometimes CBD pills for pain secondary to a prior knee replacement. States no hypertension, no diabetes, no dyslipidemia no prior strokes or heart attacks. States her knee surgery was a year and a half ago. No tobacco, has a 1 or 2 beers daily, no recreational drugs. Dr. Menezes is her primary care physician. Patient states no long distance travel. No estrogen. Hospital course: 11/06: Patient is slept fairly well still feeling short of breath and not feeling quite well still coughing sputum is nonproductive poor appetite oxygen requirement as unchanged Review of systems: No headache diplopia blurred vision No chest pains palpitations No nausea vomiting diarrhea No urinary symptoms Physical exam: Elderly female very pleasant HEENT unremarkable Lungs with coarse rales throughout right lung field left is clear Heart sounds distant no murmurs appreciated Abdomen nondistended nontender Extremities no edema Neuro nonfocal Objective lab and imaging please see bottom of the note Assessment and plan: Extensive right-sided pneumonia with leukocytosis and lactic acidosis and acute hypoxic respiratory failure * Blood culture, sputum culture, initial antibiotics Zosyn consider deescalating depending on further history to high-dose ceftriaxone and azithromycin * Supplemental oxygen * Pulmonary toilet * IV fluid resuscitation and serial lactic acid DVT prophylaxis * Subcutaneous heparin Code status: * Full code Time-Based Coding :: 35 minutes spent with patient and on the chart (including review of chart, obtaining history, exam, reviewing outside data, placing orders, documenting exam and treatment plan, and counseling patient). Exam Vital Signs (past 8 hours): - 11/06/24 12:00 Temperature 97 F L Pulse Rate 62 Respiratory Rate 18 Blood Pressure 132/66 Pulse Oximetry 90 L Oxygen Flow Rate 2 Oxygen Delivery Method Nasal Cannula Oxygen Flow Rate 2 Objective Labs 11/06/24 12:53 11/05/24 13:47 Labs: Laboratory Results - last 24 hr 11/05/24 11/05/24 11/06/24 16:00 23:15 12:53 WBC 10.2 RBC 4.16 Hgb 13.6 Hct 39.6 MCV 95.1 MCH 32.6 MCHC 34.3 RDW 15.0 H Plt Count 253 Neut % (Auto) 79.1 H Lymph % (Auto) 12.9 L [place] % (Auto) 6.3 Eos % (Auto) 1.1 L Baso % (Auto) 0.6 Neut # (Auto) 8000 H Lymph # (Auto) 1300 [place] # (Auto) 600 Eos # (Auto) 100 Baso # (Auto) 100 Lactate 1.6 1.6 PFSH Medical History History of COVID-19 (~09/2022) Osteoarthritis Facet arthropathy, lumbar Herniated nucleus pulposus, L4-5 Degenerative joint disease of knee Lumbar radiculopathy Lumbar spinal stenosis Elevated liver enzymes Neuroforaminal stenosis of lumbar spine Lumbar spondylosis Leg numbness Chronic cough Asthma Shoulder bursitis Chronic back pain Carpal tunnel syndrome Ankle pain Measles Chicken pox Vertigo Painful menstrual periods Heavy menstrual period Diabetes insipidus Hypertension Ectopic breast tissue Depression Surgical History History of surgery (10/29/18) Anesthesia Hx of Achilles tendon repair (~2004) History of Family History Father Gallstones Diabetes mellitus Mother Diabetes mellitus Hyperlipidemia Hypertension Mental health problem Sister Diabetes mellitus Heart disease Mental health problem Grandfather Heart disease Grandmother Heart disease Brother Heart disease Diabetes mellitus Hyperlipidemia Hypertension Family/Other Colorectal cancer Brother Cirrhosis Social History marital status: household members: spouse and children occupational status: previously employed Smoking Status: Never smoker alcohol intake: current substance use type: does not use Assessment & Plan Time-Based Coding :: [TOTAL MINUTES] spent with patient and on the chart (including review of chart, obtaining history, exam, reviewing outside data, placing orders, documenting exam and treatment plan, and counseling patient) on [DATE]. Quality VTE Deep Vein Thrombosis/Pulmonary Embolism Present on Admission: No
[2024-11-06 18:00] VITALS: BP 128/65; PULSE 68; RESP 18; TEMP 36.6; O2SAT 91
[2024-11-06 18:21] LABS: Add Manual Diff / Slide Review NO; Basophils Absolute Auto 100 /uL (0-100); Eosinophils Absolute Auto 200 /uL (0-450); Hematocrit 41.2 % (36-46); Hemoglobin 13.8 g/dL (12.0-16.0); Lymphocytes Absolute Auto 1900 /uL (1100-4500); Mean Corpuscular HGB Conc 33.5 % (30-36); Mean Corpuscular Hemoglobin 32.4 PG (26-34); Mean Corpuscular Volume 96.7 fL (80-100); Monocytes Absolute Auto 800 /uL (0-900); Monocytes Percent Auto 7.9 % (3-14); Neutrophils Absolute Auto 6700 /uL (1500-7000); Neutrophils Percent Auto 69.1 % (50-75); Platelet Count 275 X10^3/uL (150-400); Red Blood Cell Count 4.26 X10^6/uL (4.0-5.2); Red Cell Distribution Width 15.4 % (11.6-14.8); White Blood Cell Count 9.7 X10^3/uL (4.5-11.0)
[2024-11-06 18:27] LABS: Alanine Aminotransferase 22 IU/L (<35); Albumin 2.5 g/dL (3.5-5.0); Albumin Globulin Ratio 0.7 (1.0-2.8); Alkaline Phosphatase 252 U/L (38-126); Aspartate Aminotransferase 49 IU/L (14-36); Bilirubin Total 0.5 mg/dL (0.2-1.3); Blood Urea Nitrogen 12 mg/dL (7-17); Calcium 8.1 mg/dL (8.4-10.2); Carbon Dioxide 33 mmol/L (22-32); Chloride 106 mmol/L (98-107); Estimated Glomerular Filt Rate > 60 mL/min (>60); Globulin 3.7 g/dL (1.7-4.1); Glucose 119 mg/dL (70-99); HEMOLYSIS < 15 (0-50); Potassium 3.9 mmol/L (3.4-5.1); Sodium 140 mmol/L (137-145); Total Protein 6.2 g/dL (6.3-8.2)
[2024-11-06 20:45] VITALS: O2SAT 98
[2024-11-07] VITALS: BP 132/53; PULSE 69; RESP 20; TEMP 36.7; O2SAT 91
[2024-11-07 06:00] VITALS: BP 120/66; PULSE 53; RESP 21; TEMP 36.4; O2SAT 90
[2024-11-07] MEDS: PIPERACILLIN/TAZO 3.375 GM in SODIUM CHLORIDE 0.9% 100 ML IV (07:37)
[2024-11-07] MEDS: HEPARIN 5,000 UNIT/ML VIAL 5000 UNIT SUBCUT ×2 (08:52→21:53)
[2024-11-07] MEDS: SERTRALINE 50 MG TABLET 75 MG PO (08:52)
[2024-11-07 08:59] LABS: Add Manual Diff / Slide Review NO; Basophils Absolute Auto 100 /uL (0-100); Eosinophils Absolute Auto 200 /uL (0-450); Eosinophils Percent Auto 1.6 % (2-4); Hematocrit 38.7 % (36-46); Hemoglobin 13.2 g/dL (12.0-16.0); Lymphocytes Absolute Auto 1400 /uL (1100-4500); Lymphocytes Percent Auto 14.9 % (25-40); Mean Corpuscular HGB Conc 34.2 % (30-36); Mean Corpuscular Hemoglobin 32.4 PG (26-34); Mean Corpuscular Volume 94.9 fL (80-100); Monocytes Absolute Auto 600 /uL (0-900); Monocytes Percent Auto 6.6 % (3-14); Neutrophils Absolute Auto 7300 /uL (1500-7000); Neutrophils Percent Auto 75.9 % (50-75); Platelet Count 260 X10^3/uL (150-400); Red Blood Cell Count 4.07 X10^6/uL (4.0-5.2); Red Cell Distribution Width 15.4 % (11.6-14.8); White Blood Cell Count 9.6 X10^3/uL (4.5-11.0)
--- NOTE | 2024-11-07 09:14 | P.PN_ITS ---
Subjective Subjective Date Patient Seen: 11/07/24 Interval history: Chief complaint: Cough dyspnea on exertion and hypoxic respiratory failure secondary to right- sided pneumonia, RSV positive and possible superinfection bacteria with lactic acidosis History of present illness: 11/05: 69-year-old female history of depression denies any other medical issues states for the past week and a half developed initially little bit of a cough that has been nonproductive and then became increasingly short of breath initially with exertion and now even at rest. Patient states no chest pain but it was has a little tightness. She states cough has not become productive. No hemoptysis. She was felt flushed at times but no fevers that she was aware. She states little bit of nasal congestion. Denies any abdominal back or flank pain. No issues with bowel movements such as diarrhea or constipation. No new swelling in extremities. No new urinary symptoms. Patient states he takes medication for depression and sometimes CBD pills for pain secondary to a prior knee replacement. States no hypertension, no diabetes, no dyslipidemia no prior strokes or heart attacks. States her knee surgery was a year and a half ago. No tobacco, has a 1 or 2 beers daily, no recreational drugs. Dr. Menezes is her primary care physician. Patient states no long distance travel. No estrogen. Hospital course: 11/06: Patient is slept fairly well still feeling short of breath and not feeling quite well still coughing sputum is nonproductive poor appetite oxygen requirement as unchanged 11/07: RSV screening came back positive. Patient is feeling better less short of breath slept well overnight no fevers or chills lungs have better air movement today and better vesicular breath sounds bilaterally placed on droplet and contact precautions Review of systems: No headache diplopia blurred vision No chest pains palpitations No nausea vomiting diarrhea No urinary symptoms Physical exam: Elderly female very pleasant HEENT unremarkable Lungs with light rales throughout right lung with better air movement field left is clear Heart sounds distant no murmurs appreciated Abdomen nondistended nontender Extremities no edema Neuro nonfocal Objective lab and imaging please see bottom of the note Assessment and plan: Extensive right-sided pneumonia RSV positive and possible superinfection with bacteria with leukocytosis and lactic acidosis and acute hypoxic respiratory failure * Blood culture, sputum culture, initial antibiotics Zosyn 11/07 deescalating to high-dose ceftriaxone and azithromycin 11/07 * Supplemental oxygen * Pulmonary toilet * IV fluid resuscitation and serial lactic acid completed and resolved * Droplet and contact precautions DVT prophylaxis * Subcutaneous heparin Code status: * Full code Time-Based Coding :: 35 minutes spent with patient and on the chart (including review of chart, obtaining history, exam, reviewing outside data, placing orders, documenting exam and treatment plan, and counseling patient). Exam Vital Signs (past 8 hours): - 11/07/24 06:00 Temperature 97.6 F Pulse Rate 53 L Respiratory Rate 21 Blood Pressure 120/66 Pulse Oximetry 90 L Oxygen Flow Rate 2 Fraction of Inspired Oxygen 28 SaO2/FiO2 Ratio 350 Oxygen Delivery Method Nasal Cannula Oxygen Flow Rate 2 Objective Labs 11/07/24 08:47 11/06/24 18:08 Labs: Laboratory Results - last 24 hr 11/06/24 11/06/24 11/07/24 12:53 18:08 08:47 WBC 10.2 9.7 9.6 RBC 4.16 4.26 4.07 Hgb 13.6 13.8 13.2 Hct 39.6 41.2 38.7 MCV 95.1 96.7 94.9 MCH 32.6 32.4 32.4 MCHC 34.3 33.5 34.2 RDW 15.0 H 15.4 H 15.4 H Plt Count 253 275 260 Neut % (Auto) 79.1 H 69.1 75.9 H Lymph % (Auto) 12.9 L 20.0 L 14.9 L Dent % (Auto) 6.3 7.9 6.6 Eos % (Auto) 1.1 L 2.0 1.6 L Baso % (Auto) 0.6 1.0 1.0 Neut # (Auto) 8000 H 6700 7300 H Lymph # (Auto) 1300 1900 1400 Dent # (Auto) 600 800 600 Eos # (Auto) 100 200 200 Baso # (Auto) 100 100 100 Sodium 140 Potassium 3.9 Chloride 106 Carbon Dioxide 33 H BUN 12 Creatinine 0.60 Estimated GFR > 60 BUN/Creatinine Ratio 20.0 Glucose 119 H Calcium 8.1 L Total Bilirubin 0.5 AST 49 H ALT 22 Alkaline Phosphatase 252 H Total Protein 6.2 L Albumin 2.5 L Globulin 3.7 Albumin/Globulin Ratio 0.7 L [facility] Medical History History of COVID-19 (~09/2022) Osteoarthritis Facet arthropathy, lumbar Herniated nucleus pulposus, L4-5 Degenerative joint disease of knee Lumbar radiculopathy Lumbar spinal stenosis Elevated liver enzymes Neuroforaminal stenosis of lumbar spine Lumbar spondylosis Leg numbness Chronic cough Asthma Shoulder bursitis Chronic back pain Carpal tunnel syndrome Ankle pain Measles Chicken pox Vertigo Painful menstrual periods Heavy menstrual period Diabetes insipidus Hypertension Ectopic breast tissue Depression Surgical History History of surgery (10/29/18) Anesthesia Hx of Achilles tendon repair (~2004) History of Family History Father Gallstones Diabetes mellitus Mother Diabetes mellitus Hyperlipidemia Hypertension Mental health problem Sister Diabetes mellitus Heart disease Mental health problem Grandfather Heart disease Grandmother Heart disease Brother Heart disease Diabetes mellitus Hyperlipidemia Hypertension Family/Other Colorectal cancer Brother Cirrhosis Social History marital status: household members: spouse and children occupational status: previously employed Smoking Status: Never smoker alcohol intake: current substance use type: does not use Assessment & Plan Time-Based Coding :: [TOTAL MINUTES] spent with patient and on the chart (including review of chart, obtaining history, exam, reviewing outside data, placing orders, documenting exam and treatment plan, and counseling patient) on [DATE]. Quality VTE Deep Vein Thrombosis/Pulmonary Embolism Present on Admission: No
[2024-11-07] MEDS: CHOLECALCIFEROL (VITAMIN D3) 5,000 UNIT TABLET 5000 UNIT PO (09:20)
[2024-11-07] MEDS: AZITHROMYCIN 250 MG TABLET 500 MG PO (09:39)
[2024-11-07] MEDS: cefTRIAXone 2,000 MG in SODIUM CHLORIDE 0.9% 100 ML 200 MG IV (10:02)
--- NOTE | 2024-11-07 10:57 | CM.DPC ---
DCP Cont: Per MD, pt RSV+ and to have chest xray and anticipate another 2-3 days for improvement before discharge. Per RN, pt currently on 2LO2 and SBA in room and no concerns currently noted. ISA Tee
[2024-11-07 12:00] VITALS: BP 117/69; PULSE 66; RESP 17; TEMP 36.4; O2SAT 92
--- NOTE | 2024-11-07 15:36 | PC.NURSE ---
Pt resting at intervals T/O day/ Lungs w/ exp wheeze noted bilaterally. Bases decreased bilaterally O2 2L per cannula Denies discomfort. Call light w/in reach, pt calls appropriately for needs. Continue w/plan of care.
[2024-11-07 18:00] VITALS: BP 130/61; PULSE 59; RESP 17; TEMP 36.3; O2SAT 90
[2024-11-07 18:05] LABS: Add Manual Diff / Slide Review NO; Basophils Absolute Auto 0 /uL (0-100); Basophils Percent Auto 0.6 % (0-2); Eosinophils Absolute Auto 200 /uL (0-450); Eosinophils Percent Auto 1.8 % (2-4); Lymphocytes Absolute Auto 1500 /uL (1100-4500); Lymphocytes Percent Auto 17.2 % (25-40); Mean Corpuscular HGB Conc 33.4 % (30-36); Mean Corpuscular Volume 95.7 fL (80-100); Monocytes Absolute Auto 800 /uL (0-900); Monocytes Percent Auto 9.3 % (3-14); Neutrophils Absolute Auto 6100 /uL (1500-7000); Neutrophils Percent Auto 71.1 % (50-75); Platelet Count 254 X10^3/uL (150-400); Red Blood Cell Count 4.07 X10^6/uL (4.0-5.2); Red Cell Distribution Width 15.4 % (11.6-14.8); White Blood Cell Count 8.5 X10^3/uL (4.5-11.0)
[2024-11-07 18:17] LABS: Alanine Aminotransferase 22 IU/L (<35); Albumin 2.5 g/dL (3.5-5.0); Albumin Globulin Ratio 0.7 (1.0-2.8); Alkaline Phosphatase 268 U/L (38-126); Aspartate Aminotransferase 48 IU/L (14-36); Bilirubin Total 0.4 mg/dL (0.2-1.3); Blood Urea Nitrogen 12 mg/dL (7-17); Calcium 8.1 mg/dL (8.4-10.2); Carbon Dioxide 30 mmol/L (22-32); Chloride 106 mmol/L (98-107); Estimated Glomerular Filt Rate > 60 mL/min (>60); Globulin 3.7 g/dL (1.7-4.1); Glucose 152 mg/dL (70-99); HEMOLYSIS < 15 (0-50); Potassium 3.8 mmol/L (3.4-5.1); Sodium 138 mmol/L (137-145); Total Protein 6.2 g/dL (6.3-8.2)
[2024-11-08] VITALS (9 sets, daily range): BP systolic 118–137; BP diastolic 58–80; PULSE 56–74; RESP 18–21; TEMP 36.6–37.2; O2SAT 85–92
[2024-11-08] MEDS: ACETAMINOPHEN 325 MG TABLET 650 MG PO (06:34)
[2024-11-08 08:36] LABS: Add Manual Diff / Slide Review NO; Basophils Absolute Auto 100 /uL (0-100); Basophils Percent Auto 0.8 % (0-2); Eosinophils Absolute Auto 100 /uL (0-450); Eosinophils Percent Auto 1.5 % (2-4); Hematocrit 38.7 % (36-46); Lymphocytes Absolute Auto 1600 /uL (1100-4500); Lymphocytes Percent Auto 18.5 % (25-40); Mean Corpuscular HGB Conc 33.6 % (30-36); Mean Corpuscular Hemoglobin 32.1 PG (26-34); Mean Corpuscular Volume 95.5 fL (80-100); Monocytes Absolute Auto 900 /uL (0-900); Monocytes Percent Auto 10.5 % (3-14); Neutrophils Absolute Auto 5900 /uL (1500-7000); Neutrophils Percent Auto 68.7 % (50-75); Platelet Count 255 X10^3/uL (150-400); Red Blood Cell Count 4.05 X10^6/uL (4.0-5.2); Red Cell Distribution Width 15.5 % (11.6-14.8); White Blood Cell Count 8.5 X10^3/uL (4.5-11.0)
[2024-11-08] MEDS: cefTRIAXone 2,000 MG in SODIUM CHLORIDE 0.9% 100 ML 200 MG IV (09:37)
[2024-11-08] MEDS: HEPARIN 5,000 UNIT/ML VIAL 5000 UNIT SUBCUT ×2 (09:38→20:45)
[2024-11-08] MEDS: SERTRALINE 50 MG TABLET 75 MG PO (09:38)
[2024-11-08] MEDS: AZITHROMYCIN 250 MG TABLET 500 MG PO (09:38)
[2024-11-08] MEDS: CHOLECALCIFEROL (VITAMIN D3) 5,000 UNIT TABLET 5000 UNIT PO (09:49)
--- NOTE | 2024-11-08 14:55 | P.PN_ITS ---
Subjective Subjective Date Patient Seen: 11/08/24 Interval history: Chief complaint: Cough dyspnea on exertion and hypoxic respiratory failure secondary to right- sided pneumonia, RSV positive and possible superinfection bacteria with lactic acidosis History of present illness: 11/05: 69-year-old female history of depression denies any other medical issues states for the past week and a half developed initially little bit of a cough that has been nonproductive and then became increasingly short of breath initially with exertion and now even at rest. Patient states no chest pain but it was has a little tightness. She states cough has not become productive. No hemoptysis. She was felt flushed at times but no fevers that she was aware. She states little bit of nasal congestion. Denies any abdominal back or flank pain. No issues with bowel movements such as diarrhea or constipation. No new swelling in extremities. No new urinary symptoms. Patient states he takes medication for depression and sometimes CBD pills for pain secondary to a prior knee replacement. States no hypertension, no diabetes, no dyslipidemia no prior strokes or heart attacks. States her knee surgery was a year and a half ago. No tobacco, has a 1 or 2 beers daily, no recreational drugs. Dr. Menezes is her primary care physician. Patient states no long distance travel. No estrogen. Hospital course: 11/06: Patient is slept fairly well still feeling short of breath and not feeling quite well still coughing sputum is nonproductive poor appetite oxygen requirement as unchanged 11/07: RSV screening came back positive. Patient is feeling better less short of breath slept well overnight no fevers or chills lungs have better air movement today and better vesicular breath sounds bilaterally placed on droplet and contact precautions 11/08: Patient is still having significant respiratory symptoms nonproductive cough dyspnea with any type of activity she is still having mildly labored respirations today Review of systems: No headache diplopia blurred vision No chest pains palpitations No nausea vomiting diarrhea No urinary symptoms Physical exam: Elderly female very pleasant HEENT unremarkable Lungs shortened inspiratory and expiratory phases with tight wheezing with light rales throughout right lung with better air movement field left is clear Heart sounds distant no murmurs appreciated Abdomen nondistended nontender Extremities no edema Neuro nonfocal Objective lab and imaging please see bottom of the note Assessment and plan: Extensive right-sided pneumonia RSV positive and possible superinfection with bacteria with leukocytosis and lactic acidosis and acute hypoxic respiratory failure * Blood culture, sputum culture, initial antibiotics Zosyn 11/07 deescalated to high-dose ceftriaxone and azithromycin 11/07 * Supplemental oxygen * Pulmonary toilet * IV fluid resuscitation and serial lactic acid completed and resolved * Droplet and contact precautions * Solu-Medrol 125 x 1 and 40 mg IV Q 8 hours DVT prophylaxis * Subcutaneous heparin Code status: * Full code Time-Based Coding :: 35 minutes spent with patient and on the chart (including review of chart, obtaining history, exam, reviewing outside data, placing orders, documenting exam and treatment plan, and counseling patient). Exam Vital Signs (past 8 hours): - 11/08/24 12:00 Temperature 97.8 F Pulse Rate 56 L Respiratory Rate 18 Blood Pressure 118/58 L Pulse Oximetry 92 Oxygen Flow Rate 2 Fraction of Inspired Oxygen 28 SaO2/FiO2 Ratio 350 Oxygen Delivery Method Nasal Cannula Oxygen Flow Rate 2 Objective Labs 11/08/24 08:21 11/07/24 18:00 Labs: Laboratory Results - last 24 hr 11/07/24 11/08/24 18:00 08:21 WBC 8.5 8.5 RBC 4.07 4.05 Hgb 13.0 13.0 Hct 39.0 38.7 MCV 95.7 95.5 MCH 32.0 32.1 MCHC 33.4 33.6 RDW 15.4 H 15.5 H Plt Count 254 255 Neut % (Auto) 71.1 68.7 Lymph % (Auto) 17.2 L 18.5 L Mcdonald % (Auto) 9.3 10.5 Eos % (Auto) 1.8 L 1.5 L Baso % (Auto) 0.6 0.8 Neut # (Auto) 6100 5900 Lymph # (Auto) 1500 1600 Mcdonald # (Auto) 800 900 Eos # (Auto) 200 100 Baso # (Auto) 0 100 Sodium 138 Potassium 3.8 Chloride 106 Carbon Dioxide 30 BUN 12 Creatinine 0.48 L Estimated GFR > 60 BUN/Creatinine Ratio 25.0 H Glucose 152 H Calcium 8.1 L Total Bilirubin 0.4 AST 48 H ALT 22 Alkaline Phosphatase 268 H Total Protein 6.2 L Albumin 2.5 L Globulin 3.7 Albumin/Globulin Ratio 0.7 L [facility] Medical History History of COVID-19 (~09/2022) Osteoarthritis Facet arthropathy, lumbar Herniated nucleus pulposus, L4-5 Degenerative joint disease of knee Lumbar radiculopathy Lumbar spinal stenosis Elevated liver enzymes Neuroforaminal stenosis of lumbar spine Lumbar spondylosis Leg numbness Chronic cough Asthma Shoulder bursitis Chronic back pain Carpal tunnel syndrome Ankle pain Measles Chicken pox Vertigo Painful menstrual periods Heavy menstrual period Diabetes insipidus Hypertension Ectopic breast tissue Depression Surgical History History of surgery (10/29/18) Anesthesia Hx of Achilles tendon repair (~2004) History of Family History Father Gallstones Diabetes mellitus Mother Diabetes mellitus Hyperlipidemia Hypertension Mental health problem Sister Diabetes mellitus Heart disease Mental health problem Grandfather Heart disease Grandmother Heart disease Brother Heart disease Diabetes mellitus Hyperlipidemia Hypertension Family/Other Colorectal cancer Brother Cirrhosis Social History marital status: household members: spouse and children occupational status: previously employed Smoking Status: Never smoker alcohol intake: current substance use type: does not use Assessment & Plan Time-Based Coding :: [TOTAL MINUTES] spent with patient and on the chart (including review of chart, obtaining history, exam, reviewing outside data, placing orders, documenting exam and treatment plan, and counseling patient) on [DATE]. Quality VTE Deep Vein Thrombosis/Pulmonary Embolism Present on Admission: No
--- NOTE | 2024-11-08 14:58 | DI.RAD.S_ITS ---
PROCEDURE: XR CHEST 1V INDICATIONS: Pneumonia TECHNIQUE: One view of the chest was acquired. COMPARISON: [facility], CR, XR CHEST 1V, 11/05/2024, 13:32. FINDINGS: Surgical changes and devices: None. Lungs and pleura: Moderate right pleural effusion increased compared to previous study. Hazy airspace opacities are noted throughout right hemithorax. Left lung is clear. No pneumothorax. Mediastinum: Mediastinal contours appear normal. Heart size is normal. Bones and chest wall: No suspicious bony lesions. Overlying soft tissues appear unremarkable. IMPRESSION: Finding is suggestive of moderate right pleural effusion and extensive right- sided pulmonary infiltrates. No pneumothorax. Left lung is clear. Dictated by: Pineda Reddy M.D. on 11/08/2024 at 16:41 Approved by: Pineda Reddy M.D. on 11/08/2024 at 16:47
[2024-11-08] MEDS: methylPREDNISolone 125 MG/2 ML VIAL IV (16:29)
[2024-11-08] MEDS: CEFEPIME 2 GM in SODIUM CHLORIDE 0.9% 100 ML IV (16:29)
[2024-11-08] MEDS: FUROSEMIDE 40 MG/4 ML VIAL 20 MG IV (16:29)
[2024-11-08 18:31] LABS: Add Manual Diff / Slide Review NO; Basophils Absolute Auto 100 /uL (0-100); Basophils Percent Auto 0.8 % (0-2); Eosinophils Absolute Auto 100 /uL (0-450); Eosinophils Percent Auto 1.4 % (2-4); Hematocrit 39.3 % (36-46); Hemoglobin 13.5 g/dL (12.0-16.0); Lymphocytes Absolute Auto 900 /uL (1100-4500); Lymphocytes Percent Auto 10.3 % (25-40); Mean Corpuscular HGB Conc 34.5 % (30-36); Mean Corpuscular Hemoglobin 32.6 PG (26-34); Mean Corpuscular Volume 94.6 fL (80-100); Monocytes Absolute Auto 600 /uL (0-900); Monocytes Percent Auto 6.5 % (3-14); Neutrophils Absolute Auto 7100 /uL (1500-7000); Platelet Count 266 X10^3/uL (150-400); Red Blood Cell Count 4.15 X10^6/uL (4.0-5.2); Red Cell Distribution Width 15.5 % (11.6-14.8); White Blood Cell Count 8.8 X10^3/uL (4.5-11.0)
[2024-11-08 18:45] LABS: Alanine Aminotransferase 24 IU/L (<35); Albumin 2.7 g/dL (3.5-5.0); Albumin Globulin Ratio 0.7 (1.0-2.8); Alkaline Phosphatase 281 U/L (38-126); Aspartate Aminotransferase 51 IU/L (14-36); BUN Creatinine Ratio 18.4 (6-22); Bilirubin Total 0.5 mg/dL (0.2-1.3); Blood Urea Nitrogen 9 mg/dL (7-17); Calcium 8.1 mg/dL (8.4-10.2); Carbon Dioxide 32 mmol/L (22-32); Chloride 104 mmol/L (98-107); Estimated Glomerular Filt Rate > 60 mL/min (>60); Globulin 4.1 g/dL (1.7-4.1); Glucose 171 mg/dL (70-99); HEMOLYSIS < 15 (0-50); Sodium 140 mmol/L (137-145); Total Protein 6.8 g/dL (6.3-8.2)
--- NOTE | 2024-11-08 20:00 | PC.NURSE ---
SHift summary: Patient alert and oriented, pleasant and cooperative. Patient denies pain. States she slept a little better last night, and is starting to feel better. 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 Noted at upper 80's by GANTRY CRANE OPERATOR when patient was back in bed and this RN was notified and saw patient, patient required 5L NC for a few minutes for recovery breathing and then back to 2L NC at 92% o2 sat. Patient encouraged to use the BSC with assistance for less work at this time. Patient wears brief for urinary stress incontinence. Patient tolerated her meals, though states she does not have much appetite, denies sore throat. Patient had intermittent dry cough, though at end of the shift states her cough is now much productive, sputum noted as garza with a blood streak. Bed alarm on for safety, with call light withi nreach. Patient has been calling appropriately and able to make needs known.
[2024-11-08] MEDS: SODIUM CHLORIDE 0.9% FLUSH 10 ML IV ×2 (20:45→22:22)
--- NOTE | 2024-11-08 23:55 | PC.NURSE ---
Patient is alert and oriented. Breath sounds with inspiratory/expiratory crackles in right LL. Oxygen at 2L/min per NC with sat of 91% at start of shift. Gotten up to BSC and sat dropped to 80% with the activity and is slow to recover once back in bed but states she felt less SOB than upon admission. At rest her sat varies 91-93%. She does have a sometimes productive cough and expectorated small amount of yellow sputum with blood tinge. HRR w/rate of 57. Denied nausea. BT present and reports having had BM earlier today. Has been incontinent of urine due to coughing but also urinates when up to BSC. Is assisted out of bed with use of walker and 1 assist to get feet out/back into bed. Declines use of SCD's at night as she finds it difficult to sleep with them on; reminded to ankle wave when awake. Denied any pain. Is on droplet precautions due to RSV diagnosis. Fall risk score is high and bed alarm is activated.
[2024-11-09] VITALS: BP 130/71; PULSE 62; RESP 20; TEMP 36.8; O2SAT 91
[2024-11-09] MEDS: CEFEPIME 2 GM in SODIUM CHLORIDE 0.9% 100 ML IV ×2 (04:06→18:28)
[2024-11-09] MEDS: SODIUM CHLORIDE 0.9% FLUSH 10 ML IV ×5 (04:07→22:17)
[2024-11-09 06:00] VITALS: BP 120/74; PULSE 82; RESP 22; TEMP 36.4; O2SAT 90
--- NOTE | 2024-11-09 08:15 | P.PN_ITS ---
Subjective Subjective Date Patient Seen: 11/09/24 Interval history: Chief complaint: Cough dyspnea on exertion and hypoxic respiratory failure secondary to right- sided pneumonia, RSV positive and possible superinfection bacteria with lactic acidosis History of present illness: 11/05: 69-year-old female history of depression denies any other medical issues states for the past week and a half developed initially little bit of a cough that has been nonproductive and then became increasingly short of breath initially with exertion and now even at rest. Patient states no chest pain but it was has a little tightness. She states cough has not become productive. No hemoptysis. She was felt flushed at times but no fevers that she was aware. She states little bit of nasal congestion. Denies any abdominal back or flank pain. No issues with bowel movements such as diarrhea or constipation. No new swelling in extremities. No new urinary symptoms. Patient states he takes medication for depression and sometimes CBD pills for pain secondary to a prior knee replacement. States no hypertension, no diabetes, no dyslipidemia no prior strokes or heart attacks. States her knee surgery was a year and a half ago. No tobacco, has a 1 or 2 beers daily, no recreational drugs. Dr. Menezes is her primary care physician. Patient states no long distance travel. No estrogen. Hospital course: 11/06: Patient is slept fairly well still feeling short of breath and not feeling quite well still coughing sputum is nonproductive poor appetite oxygen requirement as unchanged 11/07: RSV screening came back positive. Patient is feeling better less short of breath slept well overnight no fevers or chills lungs have better air movement today and better vesicular breath sounds bilaterally placed on droplet and contact precautions 11/08: Patient is still having significant respiratory symptoms nonproductive cough dyspnea with any type of activity she is still having mildly labored respirations today 11/09: Feeling somewhat better today better air movement and more airway sounds today than yesterday CT of the chest: Lungs and Pleura: Relative decrease in volume of the right hemithorax. Multifocal infiltrates throughout the right lung, both peripherally and in a central bronchovascular distribution. Ground-glass opacity and air bronchograms are present throughout the remainder of the right lung. There is circumferential right apical pleural thickening. Trace right pleural effusion or dependent posterior pleural thickening. Airways remain patent. No visible mucous plugging. No significant bronchial wall thickening. Minimal peripheral posterior upper lobe ground-glass opacities in the left lung, most likely gravitational. Left lung is otherwise clear. 11/09: Sputum culture positive for Staphylococcus aureus sensitivity to follow vancomycin added discussed with pharmacy Review of systems: No headache diplopia blurred vision No chest pains palpitations No nausea vomiting diarrhea No urinary symptoms Physical exam: Elderly female very pleasant HEENT unremarkable Lungs shortened inspiratory and expiratory phases with tight wheezing with light rales throughout right lung with better air movement field left is clear Heart sounds distant no murmurs appreciated Abdomen nondistended nontender Extremities no edema Neuro nonfocal Objective lab and imaging please see bottom of the note Assessment and plan: Extensive right-sided pneumonia RSV positive and possible superinfection with bacteria with leukocytosis and lactic acidosis and acute hypoxic respiratory failure * Blood culture negative, sputum culture, positive for Staphylococcus aureus initial antibiotics Zosyn 11/07 deescalated to high-dose ceftriaxone and azithromycin 11/07 * Vancomycin added discussed with pharmacy until sensitivities back * Supplemental oxygen * Pulmonary toilet * IV fluid resuscitation and serial lactic acid completed and resolved * Droplet and contact precautions * Solu-Medrol 125 x 1 and 40 mg IV Q 8 hours DVT prophylaxis * Subcutaneous heparin Code status: * Full code Time-Based Coding :: 35 minutes spent with patient and on the chart (including review of chart, obtaining history, exam, reviewing outside data, placing orders, documenting exam and treatment plan, and counseling patient). Exam Vital Signs (past 8 hours): - 11/09/24 06:00 Temperature 97.5 F L Pulse Rate 82 Respiratory Rate 22 Blood Pressure 120/74 Pulse Oximetry 90 L Oxygen Flow Rate 2 Fraction of Inspired Oxygen 28 SaO2/FiO2 Ratio 350 Oxygen Delivery Method Nasal Cannula Oxygen Flow Rate 2 Objective Labs 11/09/24 09:16 11/09/24 09:16 Labs: Laboratory Results - last 24 hr 11/08/24 11/08/24 08:21 18:20 WBC 8.5 8.8 RBC 4.05 4.15 Hgb 13.0 13.5 Hct 38.7 39.3 MCV 95.5 94.6 MCH 32.1 32.6 MCHC 33.6 34.5 RDW 15.5 H 15.5 H Plt Count 255 266 Neut % (Auto) 68.7 81.0 H Lymph % (Auto) 18.5 L 10.3 L Mcmullen % (Auto) 10.5 6.5 Eos % (Auto) 1.5 L 1.4 L Baso % (Auto) 0.8 0.8 Neut # (Auto) 5900 7100 H Lymph # (Auto) 1600 900 L Mcmullen # (Auto) 900 600 Eos # (Auto) 100 100 Baso # (Auto) 100 100 Sodium 140 Potassium 4.0 Chloride 104 Carbon Dioxide 32 BUN 9 Creatinine 0.49 L Estimated GFR > 60 BUN/Creatinine Ratio 18.4 Glucose 171 H Calcium 8.1 L Total Bilirubin 0.5 AST 51 H ALT 24 Alkaline Phosphatase 281 H Total Protein 6.8 Albumin 2.7 L Globulin 4.1 Albumin/Globulin Ratio 0.7 L PFSH Medical History History of COVID-19 (~09/2022) Osteoarthritis Facet arthropathy, lumbar Herniated nucleus pulposus, L4-5 Degenerative joint disease of knee Lumbar radiculopathy Lumbar spinal stenosis Elevated liver enzymes Neuroforaminal stenosis of lumbar spine Lumbar spondylosis Leg numbness Chronic cough Asthma Shoulder bursitis Chronic back pain Carpal tunnel syndrome Ankle pain Measles Chicken pox Vertigo Painful menstrual periods Heavy menstrual period Diabetes insipidus Hypertension Ectopic breast tissue Depression Surgical History History of surgery (10/29/18) Anesthesia Hx of Achilles tendon repair (~2004) History of Family History Father Gallstones Diabetes mellitus Mother Diabetes mellitus Hyperlipidemia Hypertension Mental health problem Sister Diabetes mellitus Heart disease Mental health problem Grandfather Heart disease Grandmother Heart disease Brother Heart disease Diabetes mellitus Hyperlipidemia Hypertension Family/Other Colorectal cancer Brother Cirrhosis Social History marital status: household members: spouse and children occupational status: previously employed Smoking Status: Never smoker alcohol intake: current substance use type: does not use Assessment & Plan Time-Based Coding :: [TOTAL MINUTES] spent with patient and on the chart (including review of chart, obtaining history, exam, reviewing outside data, placing orders, documenting exam and treatment plan, and counseling patient) on [DATE]. Quality VTE Deep Vein Thrombosis/Pulmonary Embolism Present on Admission: No
--- NOTE | 2024-11-09 08:20 | DI.CT.S_ITS ---
PROCEDURE: CT CHEST WO CON INDICATIONS: Pneumonia TECHNIQUE: Noncontrast 5 mm thick sections acquired from the pulmonary apices to the posterior costophrenic angles. 1 mm lung window, 5 mm thick coronal and sagittal and 7 mm axial MIP reformats were then acquired. For radiation dose reduction, the following was used: automated exposure control, adjustment of mA and/or kV according to patient size. COMPARISON: [facility], CR, XR CHEST 1V, 11/08/2024, 14:56. [facility], CR, XR CHEST 1V, 11/05/2024, 13:32. FINDINGS: Image quality: Diagnostic. Lungs and Pleura: Relative decrease in volume of the right hemithorax. Multifocal infiltrates throughout the right lung, both peripherally and in a central bronchovascular distribution. Ground-glass opacity and air bronchograms are present throughout the remainder of the right lung. There is circumferential right apical pleural thickening. Trace right pleural effusion or dependent posterior pleural thickening. Airways remain patent. No visible mucous plugging. No significant bronchial wall thickening. Minimal peripheral posterior upper lobe ground-glass opacities in the left lung, most likely gravitational. Left lung is otherwise clear. Lower Neck: Right lower neck enlarged lymph node. Thyroid: Diminutive. Axillae: No enlarged lymph nodes. Chest Wall: Mild body wall anasarca in the lower chest. Bones: No suspicious bone lesion. Mild degenerative changes in the spine. Thoracic Vessels: Ectatic ascending thoracic aorta. Pulmonary arteries are normal caliber. Mediastinum and Adelita: There is bulky mediastinal adenopathy, predominantly right-sided. A right paratracheal lymph node measures 1.7 cm short axis. Right hilar nodes are not well seen due to lack of IV contrast. Heart: Heart size is normal. No pericardial effusion. Esophagus: No wall thickening. No hiatal hernia. Upper Abdomen: Visualized upper abdomen solid organs and bowel loops appear normal. IMPRESSION: Extensive airspace disease with mixed ground-glass and consolidative changes throughout the right lung. There is pleural thickening without a significant pleural effusion. Reactive adenopathy is noted. Dictated by: Donna Rojas M.D. on 11/09/2024 at 9:40 Approved by: Donna Rojas M.D. on 11/09/2024 at 9:49
[2024-11-09] MEDS: AZITHROMYCIN 250 MG TABLET 500 MG PO (08:57)
[2024-11-09] MEDS: SERTRALINE 50 MG TABLET 75 MG PO (08:57)
[2024-11-09] MEDS: HEPARIN 5,000 UNIT/ML VIAL 5000 UNIT SUBCUT ×2 (08:58→22:17)
[2024-11-09] MEDS: CHOLECALCIFEROL (VITAMIN D3) 5,000 UNIT TABLET 5000 UNIT PO (09:00)
[2024-11-09 09:31] LABS: Add Manual Diff / Slide Review NO; Basophils Absolute Auto 0 /uL (0-100); Basophils Percent Auto 0.5 % (0-2); Eosinophils Absolute Auto 0 /uL (0-450); Hematocrit 40.9 % (36-46); Hemoglobin 13.7 g/dL (12.0-16.0); Lymphocytes Absolute Auto 800 /uL (1100-4500); Lymphocytes Percent Auto 14.2 % (25-40); Mean Corpuscular HGB Conc 33.5 % (30-36); Mean Corpuscular Hemoglobin 31.9 PG (26-34); Mean Corpuscular Volume 95.3 fL (80-100); Monocytes Absolute Auto 100 /uL (0-900); Neutrophils Absolute Auto 5000 /uL (1500-7000); Neutrophils Percent Auto 83.3 % (50-75); Platelet Count 272 X10^3/uL (150-400); Red Cell Distribution Width 15.3 % (11.6-14.8); White Blood Cell Count 5.9 X10^3/uL (4.5-11.0)
[2024-11-09 09:47] LABS: Alanine Aminotransferase 26 IU/L (<35); Albumin 2.7 g/dL (3.5-5.0); Albumin Globulin Ratio 0.7 (1.0-2.8); Alkaline Phosphatase 294 U/L (38-126); Aspartate Aminotransferase 44 IU/L (14-36); BUN Creatinine Ratio 23.4 (6-22); Bilirubin Total 0.6 mg/dL (0.2-1.3); Blood Urea Nitrogen 11 mg/dL (7-17); Calcium 8.4 mg/dL (8.4-10.2); Carbon Dioxide 31 mmol/L (22-32); Chloride 105 mmol/L (98-107); Estimated Glomerular Filt Rate > 60 mL/min (>60); Globulin 3.7 g/dL (1.7-4.1); Glucose 198 mg/dL (70-99); HEMOLYSIS < 15 (0-50); Lactate (Lactic Acid) 1.9 mmol/L (0.7-2.1); Potassium 4.2 mmol/L (3.4-5.1); Sodium 141 mmol/L (137-145); Total Protein 6.4 g/dL (6.3-8.2)
[2024-11-09 09:52] VITALS: BP 114/86; PULSE 66; RESP 26; TEMP 36.2; O2SAT 91
[2024-11-09 10:01] LABS: Base Excess VBG 7.2 mmol/L (0-4); HCO3 VBG 33 mmol/L (24-28); Oxygen Saturation VBG 55 % (70-75); PCO2 VBG 51.3 mmHg (45-50); PO2 VBG 29 mmHg (35-45); Total CO2 VBG 32 mmol/L (24-29); pH VBG 7.42 (7.33-7.43)
--- NOTE | 2024-11-09 12:15 | CM.DPC ---
DCP Cont. Reviewed EMR and team rounds for pt's medical status and updates. Per Hospitalist, pt's pneumonia has worsened. He will start additional breathing and steroid treatments today, likely another 3-days before she will be medically stable for home d/c. Monitoring for any further evolving needs.
[2024-11-09] MEDS: ALBUTEROL 2.5 MG/3 ML NEB (ADULT) INH ×2 (14:20→20:31)
[2024-11-09 14:25] VITALS: O2SAT 91
[2024-11-09] MEDS: VANCOMYCIN 2,000 MG/400 ML PIGGYBACK 200 MG IV (16:09)
[2024-11-09 17:30] LABS: MRSA (Nasal) PCR NOT DETECTED (Not Detect)
[2024-11-09 18:00] VITALS: BP 120/70; PULSE 69; RESP 26; TEMP 36.6; O2SAT 90
[2024-11-09 18:15] LABS: Add Manual Diff / Slide Review NO; Basophils Absolute Auto 0 /uL (0-100); Basophils Percent Auto 0.4 % (0-2); Eosinophils Absolute Auto 0 /uL (0-450); Eosinophils Percent Auto 0.1 % (2-4); Hematocrit 38.8 % (36-46); Hemoglobin 13.1 g/dL (12.0-16.0); Lymphocytes Absolute Auto 800 /uL (1100-4500); Lymphocytes Percent Auto 8.9 % (25-40); Mean Corpuscular HGB Conc 33.7 % (30-36); Mean Corpuscular Hemoglobin 32.1 PG (26-34); Mean Corpuscular Volume 95.3 fL (80-100); Monocytes Absolute Auto 600 /uL (0-900); Monocytes Percent Auto 6.7 % (3-14); Neutrophils Absolute Auto 7700 /uL (1500-7000); Neutrophils Percent Auto 83.9 % (50-75); Platelet Count 248 X10^3/uL (150-400); Red Blood Cell Count 4.07 X10^6/uL (4.0-5.2); Red Cell Distribution Width 15.1 % (11.6-14.8); White Blood Cell Count 9.1 X10^3/uL (4.5-11.0)
[2024-11-09 18:39] LABS: Alanine Aminotransferase 26 IU/L (<35); Albumin 2.8 g/dL (3.5-5.0); Albumin Globulin Ratio 0.7 (1.0-2.8); Alkaline Phosphatase 245 U/L (38-126); Aspartate Aminotransferase 43 IU/L (14-36); Bilirubin Total 0.5 mg/dL (0.2-1.3); Blood Urea Nitrogen 13 mg/dL (7-17); Calcium 8.5 mg/dL (8.4-10.2); Carbon Dioxide 30 mmol/L (22-32); Chloride 105 mmol/L (98-107); Estimated Glomerular Filt Rate > 60 mL/min (>60); Globulin 3.8 g/dL (1.7-4.1); Glucose 213 mg/dL (70-99); HEMOLYSIS 43 (0-50); Sodium 138 mmol/L (137-145); Total Protein 6.6 g/dL (6.3-8.2)
[2024-11-09 20:31] VITALS: PULSE 60; RESP 20; O2SAT 93
[2024-11-10] VITALS: BP 161/83; PULSE 71; RESP 24; TEMP 36.8; O2SAT 91
[2024-11-10] MEDS: VANCOMYCIN 1,500 MG/300 ML PIGGYBACK 200 MG IV (04:26)
[2024-11-10 06:00] VITALS: BP 126/72; PULSE 72; RESP 20; TEMP 36.6; O2SAT 93
[2024-11-10] MEDS: CEFEPIME 2 GM in SODIUM CHLORIDE 0.9% 100 ML IV ×2 (06:42→18:33)
[2024-11-10 08:36] VITALS: BP 142/79; PULSE 68; RESP 22; TEMP 36.1; O2SAT 90
[2024-11-10] MEDS: ALBUTEROL 2.5 MG/3 ML NEB (ADULT) INH ×3 (09:24→20:18)
[2024-11-10 09:29] VITALS: O2SAT 92
[2024-11-10] MEDS: SODIUM CHLORIDE 0.9% FLUSH 10 ML IV ×2 (10:00→21:58)
[2024-11-10 12:00] VITALS: BP 111/47; PULSE 66; RESP 24; TEMP 36.2; O2SAT 92
[2024-11-10] MEDS: HEPARIN 5,000 UNIT/ML VIAL 5000 UNIT SUBCUT ×2 (12:03→21:58)
[2024-11-10] MEDS: SERTRALINE 50 MG TABLET 75 MG PO (12:05)
[2024-11-10] MEDS: CHOLECALCIFEROL (VITAMIN D3) 5,000 UNIT TABLET 5000 UNIT PO (12:06)
--- NOTE | 2024-11-10 13:22 | DIET.CONS ---
Dietary Consultation Note Admission Date: 11/05/2024 15:27 Assessment: 69 y F admitted for pneumonia. Dietitian screened for LOS. Met with pt at bedside who reports a decrease in appetite for about a week before admission, eating only around 25% of 3 meals daily. The smell of meat has been making patient feel sick since admission, so has been avoiding meat. Appetite is improving now and started get protein smoothie 1x/day yesterday to support protein intake without meat/chk at meals. Reviewed other non-meat protein options on menu. Reports stable weight within last 6 months. Ht: 152.4 cm Wt: 86.183 kg BMI: 37.0 UBW: 190 lb (86kg) per pt in last 6 months Last BM: 11/10/24 (11/10/24 11:34) MNA: Alonso Score: 20 Diet: 11/05/24 Dinner General (Regular) Diet Diet Modifications: Nutrition Percent Meal Consumed 100% 11/09/24 18:01 Percent Meal Consumed 100% 11/09/24 13:50 Percent Meal Consumed 50% 11/09/24 09:32 Percent Meal Consumed 50% 11/08/24 18:01 Labs: RBC 4.07 X10^6/uL (4.0-5.2) 11/09/24 18:05 Hgb 13.1 g/dL (12.0-16.0) 11/09/24 18:05 Hct 38.8 % (36-46) 11/09/24 18:05 Creatinine 0.42 mg/dL (0.52-1.04) L 11/09/24 18:05 Lactate 1.9 mmol/L (0.7-2.1) 11/09/24 09:16 NT-Pro-B Natriuret Pep 465 pg/mL (<125) H 11/05/24 13:47 Nutrition Diagnosis: Resolved: Inadequate oral intakes r/t decreased appetite aeb <25% PO intakes for 1 weeks before admission Improved recent PO intakes, getting non-meat protein source. Monitoring/Evaluations: PO intakes Electronically Signed by: Nell Edmond 11/10/24 13:22 Clinical Dietitian [address] [id number]
--- NOTE | 2024-11-10 13:38 | P.PN_ITS ---
Subjective Subjective Date Patient Seen: 11/09/24 Interval history: Chief complaint: Cough dyspnea on exertion and hypoxic respiratory failure secondary to right- sided pneumonia, RSV positive and possible superinfection bacteria with lactic acidosis History of present illness: 11/05: 69-year-old female history of depression denies any other medical issues states for the past week and a half developed initially little bit of a cough that has been nonproductive and then became increasingly short of breath initially with exertion and now even at rest. Patient states no chest pain but it was has a little tightness. She states cough has not become productive. No hemoptysis. She was felt flushed at times but no fevers that she was aware. She states little bit of nasal congestion. Denies any abdominal back or flank pain. No issues with bowel movements such as diarrhea or constipation. No new swelling in extremities. No new urinary symptoms. Patient states he takes medication for depression and sometimes CBD pills for pain secondary to a prior knee replacement. States no hypertension, no diabetes, no dyslipidemia no prior strokes or heart attacks. States her knee surgery was a year and a half ago. No tobacco, has a 1 or 2 beers daily, no recreational drugs. Dr. Menezes is her primary care physician. Patient states no long distance travel. No estrogen. Hospital course: 11/06: Patient is slept fairly well still feeling short of breath and not feeling quite well still coughing sputum is nonproductive poor appetite oxygen requirement as unchanged 11/07: RSV screening came back positive. Patient is feeling better less short of breath slept well overnight no fevers or chills lungs have better air movement today and better vesicular breath sounds bilaterally placed on droplet and contact precautions 11/08: Patient is still having significant respiratory symptoms nonproductive cough dyspnea with any type of activity she is still having mildly labored respirations today 11/09: Feeling somewhat better today better air movement and more airway sounds today than yesterday CT of the chest: Lungs and Pleura: Relative decrease in volume of the right hemithorax. Multifocal infiltrates throughout the right lung, both peripherally and in a central bronchovascular distribution. Ground-glass opacity and air bronchograms are present throughout the remainder of the right lung. There is circumferential right apical pleural thickening. Trace right pleural effusion or dependent posterior pleural thickening. Airways remain patent. No visible mucous plugging. No significant bronchial wall thickening. Minimal peripheral posterior upper lobe ground-glass opacities in the left lung, most likely gravitational. Left lung is otherwise clear. 11/09: Sputum culture positive for Staphylococcus aureus sensitivity to follow vancomycin added discussed with pharmacy 11/10: Sputum culture with MSSA, vancomycin discontinued. Patient feels improved but still remains on 3-4 L of O2 today. Exam Vital Signs (past 8 hours): - 11/10/24 06:00 11/10/24 08:36 11/10/24 09:29 Temperature 97.9 F 97.0 F L Pulse Rate 72 68 Respiratory Rate 20 22 Blood Pressure 126/72 142/79 H Pulse Oximetry 93 90 L 92 Oxygen Delivery Method Nasal Cannula Oxygen Flow Rate 3.5 3.5 4.5 Fraction of Inspired Oxygen 38 11/10/24 12:00 Temperature 97.1 F L Pulse Rate 66 Respiratory Rate 24 Blood Pressure 111/47 L Pulse Oximetry 92 Oxygen Delivery Method Oxygen Flow Rate 3.5 Fraction of Inspired Oxygen Fraction of Inspired Oxygen 38 SaO2/FiO2 Ratio 242 Oxygen Delivery Method Nasal Cannula Oxygen Flow Rate 3.5 Narrative Exam Narrative: Elderly female very pleasant, mildly ill appearing, obese BMI 37.1 HEENT unremarkable Lungs shortened inspiratory and expiratory phases with tight wheezing with light rales throughout right lung with better air movement field left is clear Heart sounds distant no murmurs appreciated Abdomen nondistended nontender Extremities no edema Neuro nonfocal Objective Labs 11/09/24 18:05 11/09/24 18:05 Labs: Laboratory Results - last 24 hr 11/09/24 11/09/24 16:11 18:05 WBC 9.1 D RBC 4.07 Hgb 13.1 Hct 38.8 MCV 95.3 MCH 32.1 MCHC 33.7 RDW 15.1 H Plt Count 248 Neut % (Auto) 83.9 H Lymph % (Auto) 8.9 L [place] % (Auto) 6.7 Eos % (Auto) 0.1 L Baso % (Auto) 0.4 Neut # (Auto) 7700 H Lymph # (Auto) 800 L [place] # (Auto) 600 Eos # (Auto) 0 Baso # (Auto) 0 Sodium 138 Potassium 4.0 Chloride 105 Carbon Dioxide 30 BUN 13 Creatinine 0.42 L Estimated GFR > 60 BUN/Creatinine Ratio 31.0 H Glucose 213 H Calcium 8.5 Total Bilirubin 0.5 AST 43 H ALT 26 Alkaline Phosphatase 245 H Total Protein 6.6 Albumin 2.8 L Globulin 3.8 Albumin/Globulin Ratio 0.7 L Nasal Screen MRSA (PCR) Not detected [facility] Medical History History of COVID-19 (~09/2022) Osteoarthritis Facet arthropathy, lumbar Herniated nucleus pulposus, L4-5 Degenerative joint disease of knee Lumbar radiculopathy Lumbar spinal stenosis Elevated liver enzymes Neuroforaminal stenosis of lumbar spine Lumbar spondylosis Leg numbness Chronic cough Asthma Shoulder bursitis Chronic back pain Carpal tunnel syndrome Ankle pain Measles Chicken pox Vertigo Painful menstrual periods Heavy menstrual period Diabetes insipidus Hypertension Ectopic breast tissue Depression Surgical History History of surgery (10/29/18) Anesthesia Hx of Achilles tendon repair (~2004) History of Family History Father Gallstones Diabetes mellitus Mother Diabetes mellitus Hyperlipidemia Hypertension Mental health problem Sister Diabetes mellitus Heart disease Mental health problem Grandfather Heart disease Grandmother Heart disease Brother Heart disease Diabetes mellitus Hyperlipidemia Hypertension Family/Other Colorectal cancer Brother Cirrhosis Social History marital status: household members: spouse and children occupational status: previously employed Smoking Status: Never smoker alcohol intake: current substance use type: does not use Assessment & Plan Assessment & Plan narrative: Extensive right-sided pneumonia RSV positive and superinfection with MSSA, acute respiratory failure with hypoxia. * Blood culture negative, sputum culture positive for Staphylococcus aureus initial antibiotics Zosyn 11/07 deescalated to high-dose ceftriaxone and azithromycin 11/07. Then changed to cefepime and vancomycin. * Discontinue vanco, continue cefepime. Monitor WBC now to 9.1 today * Wean O2 as tolerated, goal O2 89-96% while on supplemental therapy. * Pulmonary toilet * Droplet and contact precautions * Started on steroids, reduce to prednisone 40 mg daily. DVT prophylaxis * Subcutaneous heparin Code status: * Full code Dispo: Pending resolution of hypoxia, will likely discharge home if improved. Time-Based Coding :: [TOTAL MINUTES] spent with patient and on the chart (including review of chart, obtaining history, exam, reviewing outside data, placing orders, documenting exam and treatment plan, and counseling patient) on [DATE]. Quality VTE Deep Vein Thrombosis/Pulmonary Embolism Present on Admission: No
--- NOTE | 2024-11-10 16:45 | PC.NURSE ---
Pt resting T/O day. SOB w/ excertion Lungs w/ wheezes T/O, SpO2 94% 3L Independent to BR Denies any issues. Call light w/in reach,pt calls appropriately for needs. Continue w/plan of care.
[2024-11-10 20:22] VITALS: O2SAT 94
[2024-11-11] VITALS (8 sets, daily range): BP systolic 100–148; BP diastolic 55–77; PULSE 53–88; RESP 16–22; TEMP 36.4–37.3; O2SAT 91–97
[2024-11-11 06:12] LABS: Add Manual Diff / Slide Review NO; Basophils Absolute Auto 0 /uL (0-100); Basophils Percent Auto 0.4 % (0-2); Eosinophils Absolute Auto 0 /uL (0-450); Eosinophils Percent Auto 0.4 % (2-4); Hematocrit 39.4 % (36-46); Hemoglobin 13.3 g/dL (12.0-16.0); Lymphocytes Absolute Auto 1300 /uL (1100-4500); Lymphocytes Percent Auto 11.3 % (25-40); Mean Corpuscular HGB Conc 33.8 % (30-36); Mean Corpuscular Hemoglobin 32.6 PG (26-34); Mean Corpuscular Volume 96.6 fL (80-100); Monocytes Absolute Auto 1300 /uL (0-900); Monocytes Percent Auto 11.3 % (3-14); Neutrophils Absolute Auto 9000 /uL (1500-7000); Neutrophils Percent Auto 76.6 % (50-75); Platelet Count 256 X10^3/uL (150-400); Red Blood Cell Count 4.08 X10^6/uL (4.0-5.2); Red Cell Distribution Width 14.9 % (11.6-14.8); White Blood Cell Count 11.7 X10^3/uL (4.5-11.0)
[2024-11-11] MEDS: CEFEPIME 2 GM in SODIUM CHLORIDE 0.9% 100 ML IV ×2 (06:14→18:33)
[2024-11-11 06:17] LABS: BUN Creatinine Ratio 31.9 (6-22); Blood Urea Nitrogen 15 mg/dL (7-17); Calcium 8.3 mg/dL (8.4-10.2); Carbon Dioxide 31 mmol/L (22-32); Chloride 108 mmol/L (98-107); Estimated Glomerular Filt Rate > 60 mL/min (>60); Glucose 98 mg/dL (70-99); HEMOLYSIS 18 (0-50); Potassium 4.1 mmol/L (3.4-5.1); Sodium 140 mmol/L (137-145)
[2024-11-11] MEDS: ACETAMINOPHEN 325 MG TABLET 650 MG PO (06:20)
[2024-11-11] MEDS: ALBUTEROL 2.5 MG/3 ML NEB (ADULT) INH ×3 (08:43→21:07)
[2024-11-11] MEDS: HEPARIN 5,000 UNIT/ML VIAL 5000 UNIT SUBCUT ×2 (09:22→22:02)
[2024-11-11] MEDS: predniSONE 20 MG TABLET 40 MG PO (09:23)
[2024-11-11] MEDS: SERTRALINE 50 MG TABLET 75 MG PO (09:23)
[2024-11-11] MEDS: CHOLECALCIFEROL (VITAMIN D3) 5,000 UNIT TABLET 5000 UNIT PO (09:23)
--- NOTE | 2024-11-11 09:42 | DI.ECHO.S_ITS ---
[facility] : : [id number] [place] : : [id number] : : Phone: [phone] Echocardiogram Report + + :Name: SAE NAGEL Study Date: 11/11/2024 Height: 60 in : :Hospital ReadingLocation: Weight: 190 lb : : Gender: Female BSA: 1.8 m2 : :: 1955 Age: 69 yrs BP: 148/66 mmHg: :Reason For Study: SHORTNESS OF BREATH, PNEUMONIA, RSV : :Ordering Physician: SAMI, : :SALONI BUTLER Performed By: Michele Fritz : :Referring: SALONI GALLARDO : + + Interpretation Summary Technically difficult study with limited visualization. 1) Normal left ventricular thickness and size with low normal systolic function (EF 50-55%). 2) The right ventricle is not well visualized. Grossly, mildly enlarged right ventricle with normal function. 3) No significant valvular abnormalities. 4) Compared to the Echo done 01/17/2022, no significant change. Procedure: A two-dimensional transthoracic echocardiogram with color flow and Doppler was performed. A contrast injection of Definity was performed to improve assessment of LV function. The study quality was technically difficult. There is no prior echocardiogram noted for this patient. The patient was in normal sinus rhythm during the exam. Left Ventricle: The left ventricle is normal in size. There is normal left ventricular wall thickness. There is no ventricular septal defect visualized. The ejection fraction is estimated to be 50-55%. There are no focal wall motion abnormalities. Diastolic parameters suggest a relaxation abnormality of the left ventricle, consistent with probable normal filling pressures. Right Ventricle: The right ventricle is not well visualized. Grossly, mildly enlarged right ventricle with normal function. Atria: The left atrial size is normal. Right atrium not well visualized. There is no Doppler evidence for an interatrial shunt. Mitral Valve: There is mild mitral annular calcification. The mitral valve leaflets are slightly calcified. There is trace mitral regurgitation. Aortic Valve: The aortic valve is trileaflet. The aortic valve opens well. There is no aortic valve stenosis. No aortic regurgitation is present. Tricuspid Valve: The tricuspid valve is not well visualized. There is a trace or physiologic amount of tricuspid regurgitation. Pulmonary artery pressures cannot be estimated because of the lack of a measurable TR jet velocity. Pulmonic Valve: The pulmonic valve is not well visualized. There is trace pulmonic regurgitation. Great Vessels: The aortic root is normal size. The dimensions of the ascending aorta are normal. The pulmonary artery is normal size. The IVC is of normal diameter and collapses greater than 50% with a sniff. This suggests a low right atrial pressure of 3 mm Hg. Pericardium/ Pleura There is no pericardial effusion. There is no pleural effusion. MMode/2D Measurements & Calculations LVIDd: 5.7 cm LVOT diam: 1.9 cm LVIDs: 3.8 cm Ao root diam: 3.1 cm FS: 33.6 % asc Aorta Diam: 3.6 cm EPSS: 0.58 cm Ao Arch Diam (Prox Trans): 2.3 cm IVSd: 0.91 cm LVPWd: 0.80 cm LV guerrero. diameter/BSA (cm/m^2): 3.1 LV sys. diameter/BSA (cm/m^2): 2.1 LA A2 area: 19.9 cm2 IVC diam: 1.9 cm LA A4 area: 23.5 cm2 LA length (vol): 6.2 cm LA vol: 64.3 ml LA vol index: 35.2 ml/m2 TAPSE: 2.7 cm Doppler Measurements & Calculations Ao V2 max: 201.6 cm/sec LVOT Max Mirza: 127.1 cm/sec Ao V2 mean: 142.1 cm/sec LV V1 max P.5 mmHg Ao max P.2 mmHg LV V1 VTI: 30.2 cm Ao mean P.1 mmHg KATY(I,D): 2.0 cm2 Ao V2 VTI: 44.4 cm KATY(V,D): 1.8 cm2 sev ratio: 0.68 KATY indexed to BSA (cm^2/m^2): 1.1 MV E max mirza: 77.3 cm/sec TR max mirza: 235.4 cm/sec MV A max mirza: 90.2 cm/sec TR max P.2 mmHg MV E/A: 0.86 PA V2 max: 107.3 cm/sec Med Peak E' Mirza: 8.0 cm/sec PA V2 mean: 79.1 cm/sec E/E' med: 9.7 PA mean P.7 mmHg Lat Peak E' Mirza: 9.8 cm/sec PA pr(Accel): 61.9 mmHg E/E' lat: 7.9 E/e' average: 8.8 MV dec time: 0.19 sec SV(LVOT): 87.3 ml Reading Physician:05:55 PM
[2024-11-11] MEDS: SODIUM CHLORIDE 0.9% FLUSH 10 ML IV ×2 (09:44→22:03)
--- NOTE | 2024-11-11 10:27 | CM.DPC ---
DCP Cont: Per MD, pt not improving much and now on 4LO2 and to get an Echo today to r/o any further medical conditions impacting her progress. Not yet stable for discharge today. Per Rn, pt remains independent in room with most ADLs and pleasant. ISA Tee
--- NOTE | 2024-11-11 11:21 | P.PN_ITS ---
Subjective Subjective Date Patient Seen: 11/09/24 Interval history: Chief complaint: Cough dyspnea on exertion and hypoxic respiratory failure secondary to right- sided pneumonia, RSV positive and possible superinfection bacteria with lactic acidosis History of present illness: 11/05: 69-year-old female history of depression denies any other medical issues states for the past week and a half developed initially little bit of a cough that has been nonproductive and then became increasingly short of breath initially with exertion and now even at rest. Patient states no chest pain but it was has a little tightness. She states cough has not become productive. No hemoptysis. She was felt flushed at times but no fevers that she was aware. She states little bit of nasal congestion. Denies any abdominal back or flank pain. No issues with bowel movements such as diarrhea or constipation. No new swelling in extremities. No new urinary symptoms. Patient states he takes medication for depression and sometimes CBD pills for pain secondary to a prior knee replacement. States no hypertension, no diabetes, no dyslipidemia no prior strokes or heart attacks. States her knee surgery was a year and a half ago. No tobacco, has a 1 or 2 beers daily, no recreational drugs. Dr. Menezes is her primary care physician. Patient states no long distance travel. No estrogen. Hospital course: 11/06: Patient is slept fairly well still feeling short of breath and not feeling quite well still coughing sputum is nonproductive poor appetite oxygen requirement as unchanged 11/07: RSV screening came back positive. Patient is feeling better less short of breath slept well overnight no fevers or chills lungs have better air movement today and better vesicular breath sounds bilaterally placed on droplet and contact precautions 11/08: Patient is still having significant respiratory symptoms nonproductive cough dyspnea with any type of activity she is still having mildly labored respirations today 11/09: Feeling somewhat better today better air movement and more airway sounds today than yesterday CT of the chest: Lungs and Pleura: Relative decrease in volume of the right hemithorax. Multifocal infiltrates throughout the right lung, both peripherally and in a central bronchovascular distribution. Ground-glass opacity and air bronchograms are present throughout the remainder of the right lung. There is circumferential right apical pleural thickening. Trace right pleural effusion or dependent posterior pleural thickening. Airways remain patent. No visible mucous plugging. No significant bronchial wall thickening. Minimal peripheral posterior upper lobe ground-glass opacities in the left lung, most likely gravitational. Left lung is otherwise clear. 11/09: Sputum culture positive for Staphylococcus aureus sensitivity to follow vancomycin added discussed with pharmacy 11/10: Sputum culture with MSSA, vancomycin discontinued. Patient feels improved but still remains on 3-4 L of O2 today. 11/11: Remains hypoxic and dyspnic with minimal exertion in her room. No significant change in symptoms compared to yesterday. Desaturation overnight again improved after breathing treatment. TTE ordered Exam Vital Signs (past 8 hours): - 11/11/24 06:00 11/11/24 07:00 11/11/24 08:43 Temperature 97.6 F Pulse Rate 55 L 76 Respiratory Rate 20 16 Blood Pressure 116/57 L Pulse Oximetry 91 93 Oxygen Delivery Method Nasal Cannula Nasal Cannula Oxygen Flow Rate 4 4 Fraction of Inspired Oxygen 38 SaO2/FiO2 Ratio 242 Oxygen Delivery Method Nasal Cannula Oxygen Flow Rate 4 Narrative Exam Narrative: Elderly female very pleasant, mildly ill appearing, obese BMI 37.1 HEENT unremarkable Lungs shortened inspiratory and expiratory phases with tight wheezing, bibasilar rales Heart sounds distant no murmurs appreciated Abdomen nondistended nontender Extremities no edema Neuro nonfocal Objective Labs 11/11/24 05:43 11/11/24 05:43 Labs: Laboratory Results - last 24 hr 11/11/24 05:43 WBC 11.7 H RBC 4.08 Hgb 13.3 Hct 39.4 MCV 96.6 MCH 32.6 MCHC 33.8 RDW 14.9 H Plt Count 256 Neut % (Auto) 76.6 H Lymph % (Auto) 11.3 L [place] % (Auto) 11.3 Eos % (Auto) 0.4 L Baso % (Auto) 0.4 Neut # (Auto) 9000 H Lymph # (Auto) 1300 [place] # (Auto) 1300 H Eos # (Auto) 0 Baso # (Auto) 0 Sodium 140 Potassium 4.1 Chloride 108 H Carbon Dioxide 31 BUN 15 Creatinine 0.47 L Estimated GFR > 60 BUN/Creatinine Ratio 31.9 H Glucose 98 D Calcium 8.3 L PFSH Medical History History of COVID-19 (~09/2022) Osteoarthritis Facet arthropathy, lumbar Herniated nucleus pulposus, L4-5 Degenerative joint disease of knee Lumbar radiculopathy Lumbar spinal stenosis Elevated liver enzymes Neuroforaminal stenosis of lumbar spine Lumbar spondylosis Leg numbness Chronic cough Asthma Shoulder bursitis Chronic back pain Carpal tunnel syndrome Ankle pain Measles Chicken pox Vertigo Painful menstrual periods Heavy menstrual period Diabetes insipidus Hypertension Ectopic breast tissue Depression Surgical History History of surgery (10/29/18) Anesthesia Hx of Achilles tendon repair (~2004) History of Family History Father Gallstones Diabetes mellitus Mother Diabetes mellitus Hyperlipidemia Hypertension Mental health problem Sister Diabetes mellitus Heart disease Mental health problem Grandfather Heart disease Grandmother Heart disease Brother Heart disease Diabetes mellitus Hyperlipidemia Hypertension Family/Other Colorectal cancer Brother Cirrhosis Social History marital status: household members: spouse and children occupational status: previously employed Smoking Status: Never smoker alcohol intake: current substance use type: does not use Assessment & Plan Assessment & Plan narrative: Extensive right-sided pneumonia RSV positive and superinfection with MSSA, acute respiratory failure with hypoxia. * Blood culture negative, sputum culture positive for Staphylococcus aureus. * Initial antibiotics Zosyn, deescalated to high-dose ceftriaxone and azithromycin 11/07. Then changed to cefepime and vancomycin. * Discontinued vanco 11/10 with MSSA cultures, continuing cefepime. Monitor WBC now to rising today to 11.7 (? steroid related) * Wean O2 as tolerated, goal O2 89-96% while on supplemental therapy. * Pulmonary toilet * Droplet and contact precautions * Started on steroids, reduced to prednisone 40 mg daily on 11/10 * TTE ordered 11/11 to see if cardiac etiology contributing to continued hypoxia. Last imaging 11/09 without significant change since. Consider repeat CXR in 1-2 days depending on TTE results today and clinical progress. DVT prophylaxis * Subcutaneous heparin Code status: * Full code Dispo: Pending resolution of hypoxia, will likely discharge home if improved. Time-Based Coding :: [TOTAL MINUTES] spent with patient and on the chart (including review of chart, obtaining history, exam, reviewing outside data, placing orders, documenting exam and treatment plan, and counseling patient) on [DATE]. Quality VTE Deep Vein Thrombosis/Pulmonary Embolism Present on Admission: No
[2024-11-12] VITALS (7 sets, daily range): BP systolic 114–140; BP diastolic 53–80; PULSE 49–74; RESP 18–22; TEMP 36.6–37; O2SAT 91–96
[2024-11-12 06:24] LABS: Add Manual Diff / Slide Review NO; Basophils Absolute Auto 0 /uL (0-100); Basophils Percent Auto 0.4 % (0-2); Eosinophils Absolute Auto 100 /uL (0-450); Hematocrit 39.8 % (36-46); Hemoglobin 13.3 g/dL (12.0-16.0); Lymphocytes Absolute Auto 1300 /uL (1100-4500); Lymphocytes Percent Auto 14.1 % (25-40); Mean Corpuscular HGB Conc 33.3 % (30-36); Mean Corpuscular Hemoglobin 32.1 PG (26-34); Mean Corpuscular Volume 96.1 fL (80-100); Monocytes Absolute Auto 1100 /uL (0-900); Monocytes Percent Auto 11.7 % (3-14); Neutrophils Absolute Auto 6600 /uL (1500-7000); Neutrophils Percent Auto 72.8 % (50-75); Platelet Count 236 X10^3/uL (150-400); Red Blood Cell Count 4.14 X10^6/uL (4.0-5.2); Red Cell Distribution Width 15.3 % (11.6-14.8)
[2024-11-12 06:26] LABS: BUN Creatinine Ratio 27.9 (6-22); Blood Urea Nitrogen 12 mg/dL (7-17); Calcium 8.3 mg/dL (8.4-10.2); Carbon Dioxide 33 mmol/L (22-32); Chloride 106 mmol/L (98-107); Estimated Glomerular Filt Rate > 60 mL/min (>60); Glucose 103 mg/dL (70-99); HEMOLYSIS < 15 (0-50); Sodium 140 mmol/L (137-145)
[2024-11-12] MEDS: CEFEPIME 2 GM in SODIUM CHLORIDE 0.9% 100 ML IV (06:44)
[2024-11-12] MEDS: ACETAMINOPHEN 325 MG TABLET 650 MG PO ×2 (06:44→20:27)
[2024-11-12] MEDS: HEPARIN 5,000 UNIT/ML VIAL 5000 UNIT SUBCUT ×2 (09:22→20:27)
[2024-11-12] MEDS: SERTRALINE 50 MG TABLET 75 MG PO (09:22)
[2024-11-12] MEDS: SODIUM CHLORIDE 0.9% FLUSH 10 ML IV ×3 (09:23→21:00)
[2024-11-12] MEDS: predniSONE 20 MG TABLET 40 MG PO (09:23)
[2024-11-12] MEDS: CHOLECALCIFEROL (VITAMIN D3) 5,000 UNIT TABLET 5000 UNIT PO (09:23)
[2024-11-12] MEDS: ALBUTEROL 2.5 MG/3 ML NEB (ADULT) INH ×3 (10:50→20:56)
--- NOTE | 2024-11-12 11:19 | CM.DPNOTE ---
DCP Continued: Reviewed EMR and team rounds for pt?s medical status. Per hospitalist, recommending SNF if PT/OT evaluations agree. Pt is medically cleared to discharge to SNF when available. Per PT/OT evaluations, recommending SNF. Pt preference is [facility], DCP spoke with Admissions at [facility]. It is reported that pt will be reviewed if all clinicals sent - will need insurance authorization from pt [employer]. DCP sent all appropriate clinicals to [facility]. Pt slotted for transfer on Friday, 11/13 at 1330 via their facility van. DCP called [facility] [place] [employer] for authorization, left a message for both. Also re-sent PT/OT evaluations to [facility] via fax. DCP notified hospitalist of possible transport time and noted on patient status board. PASRR initated, need MD signature for hospital exempt discharge for Paxil 20mg daily Rx managed by PCP. Plan: Anticipating dc to [facility] on 11/13 at 1130 via their facility van (still pending [place] authorization). CM Team will continue to follow for coordination of discharge plans. JOSE Constantino
--- NOTE | 2024-11-12 12:05 | P.PN_ITS ---
Subjective Subjective Date Patient Seen: 11/12/24 Time Patient Seen: 09:45 Interval history: Chief complaint: Cough dyspnea on exertion and hypoxic respiratory failure secondary to right- sided pneumonia, RSV positive and possible superinfection bacteria with lactic acidosis History of present illness: 11/05: 69-year-old female history of depression denies any other medical issues states for the past week and a half developed initially little bit of a cough that has been nonproductive and then became increasingly short of breath initially with exertion and now even at rest. Patient states no chest pain but it was has a little tightness. She states cough has not become productive. No hemoptysis. She was felt flushed at times but no fevers that she was aware. She states little bit of nasal congestion. Denies any abdominal back or flank pain. No issues with bowel movements such as diarrhea or constipation. No new swelling in extremities. No new urinary symptoms. Patient states he takes medication for depression and sometimes CBD pills for pain secondary to a prior knee replacement. States no hypertension, no diabetes, no dyslipidemia no prior strokes or heart attacks. States her knee surgery was a year and a half ago. No tobacco, has a 1 or 2 beers daily, no recreational drugs. Dr. Menezes is her primary care physician. Patient states no long distance travel. No estrogen. Hospital course: 11/06: Patient is slept fairly well still feeling short of breath and not feeling quite well still coughing sputum is nonproductive poor appetite oxygen requirement as unchanged 11/07: RSV screening came back positive. Patient is feeling better less short of breath slept well overnight no fevers or chills lungs have better air movement today and better vesicular breath sounds bilaterally placed on droplet and contact precautions 11/08: Patient is still having significant respiratory symptoms nonproductive cough dyspnea with any type of activity she is still having mildly labored respirations today 11/09: Feeling somewhat better today better air movement and more airway sounds today than yesterday CT of the chest: Lungs and Pleura: Relative decrease in volume of the right hemithorax. Multifocal infiltrates throughout the right lung, both peripherally and in a central bronchovascular distribution. Ground-glass opacity and air bronchograms are present throughout the remainder of the right lung. There is circumferential right apical pleural thickening. Trace right pleural effusion or dependent posterior pleural thickening. Airways remain patent. No visible mucous plugging. No significant bronchial wall thickening. Minimal peripheral posterior upper lobe ground-glass opacities in the left lung, most likely gravitational. Left lung is otherwise clear. 11/09: Sputum culture positive for Staphylococcus aureus sensitivity to follow vancomycin added discussed with pharmacy 11/10: Sputum culture with MSSA, vancomycin discontinued. Patient feels improved but still remains on 3-4 L of O2 today. 11/11: Remains hypoxic and dyspnic with minimal exertion in her room. No significant change in symptoms compared to yesterday. Desaturation overnight again improved after breathing treatment. TTE ordered 11/12: The patient reports she feels tired today, stating she had not sleep well last night. She is persistently hypoxic but stable on 4 L oxygen nasal cannula. Exam Vital Signs (past 8 hours): - 11/12/24 04:55 11/12/24 08:00 11/12/24 10:54 Temperature 98.0 F Pulse Rate 74 50 L 49 L Respiratory Rate 19 22 18 Blood Pressure 136/80 Pulse Oximetry 96 93 92 Oxygen Delivery Method Nasal Cannula Oxygen Flow Rate 2 3.5 3 Fraction of Inspired Oxygen 32 Fraction of Inspired Oxygen 32 SaO2/FiO2 Ratio 287 Oxygen Delivery Method Nasal Cannula Oxygen Flow Rate 3 Narrative Exam Narrative: Elderly female very pleasant, mildly ill appearing, obese BMI 37.1 HEENT unremarkable Lungs shortened inspiratory and expiratory phases with mild wheezing, bibasilar rales Heart sounds distant no murmurs appreciated Abdomen nondistended nontender Extremities no edema Neuro nonfocal Objective Imaging *: Radiologist's impression: 1. Chest x-ray 11/05/2024: Finding is suggestive of extensive right-sided pulmonary infiltrates and small right pleural effusion. No pneumothorax. 2. Chest x-ray 11/08/2024: Finding is suggestive of moderate right pleural effusion and extensive right- sided pulmonary infiltrates. No pneumothorax. Left lung is clear. 3. Chest CT 11/09/2024: Extensive airspace disease with mixed ground-glass and consolidative changes throughout the right lung. There is pleural thickening without a significant pleural effusion. Reactive adenopathy is noted. 4. Echocardiogram 11/11/2024: Technically difficult study with limited visualization. 1) Normal left ventricular thickness and size with low normal systolic function (EF 50-55%). 2) The right ventricle is not well visualized. Grossly, mildly enlarged right ventricle with normal function. 3) No significant valvular abnormalities. 4) Compared to the Echo done 01/17/2022, no significant change. Labs 11/12/24 05:59 11/12/24 05:59 Labs: Laboratory Results - last 24 hr 11/12/24 05:59 WBC 9.0 RBC 4.14 Hgb 13.3 Hct 39.8 MCV 96.1 MCH 32.1 MCHC 33.3 RDW 15.3 H Plt Count 236 Neut % (Auto) 72.8 Lymph % (Auto) 14.1 L [place] % (Auto) 11.7 Eos % (Auto) 1.0 L Baso % (Auto) 0.4 Neut # (Auto) 6600 Lymph # (Auto) 1300 [place] # (Auto) 1100 H Eos # (Auto) 100 Baso # (Auto) 0 Sodium 140 Potassium 4.0 Chloride 106 Carbon Dioxide 33 H BUN 12 Creatinine 0.43 L Estimated GFR > 60 BUN/Creatinine Ratio 27.9 H Glucose 103 H Calcium 8.3 L PFSH Medical History Ankle pain Asthma Carpal tunnel syndrome Chicken pox Chronic back pain Chronic cough Degenerative joint disease of knee Depression Diabetes insipidus Ectopic breast tissue Elevated liver enzymes Facet arthropathy, lumbar Heavy menstrual period Herniated nucleus pulposus, L4-5 History of COVID-19 (~09/2022) Hypertension Leg numbness Lumbar radiculopathy Lumbar spinal stenosis Lumbar spondylosis Measles Neuroforaminal stenosis of lumbar spine Osteoarthritis Painful menstrual periods Shoulder bursitis Vertigo Surgical History Anesthesia History of History of surgery (10/29/18) Hx of Achilles tendon repair (~2004) Family History Father Gallstones Diabetes mellitus Mother Diabetes mellitus Hyperlipidemia Hypertension Mental health problem Sister Diabetes mellitus Heart disease Mental health problem Grandfather Heart disease Grandmother Heart disease Brother Heart disease Diabetes mellitus Hyperlipidemia Hypertension Family/Other Colorectal cancer Brother Cirrhosis Social History marital status: household members: spouse and children occupational status: previously employed Smoking Status: Never smoker alcohol intake: current substance use type: does not use Assessment & Plan Assessment & Plan narrative: 1. Extensive right-sided pneumonia RSV positive and superinfection with MSSA, acute respiratory failure with hypoxia. * Blood culture negative, sputum culture positive for Staphylococcus aureus. * Initial antibiotics Zosyn, deescalated to high-dose ceftriaxone and azithromycin 11/07. Then changed to cefepime and vancomycin. * Discontinued vanco 11/10 with MSSA cultures, continuing cefepime. Monitor WBC now to rising today to 11.7 (? steroid related) * Change cefepime to cefazolin 1g IV q8h on 11/12 * Wean O2 as tolerated, goal O2 89-96% while on supplemental therapy. * Pulmonary toilet * Droplet and contact precautions * Started on steroids, reduced to prednisone 40 mg daily on 11/10 * TTE 11/11 unremarkable. DVT prophylaxis * Subcutaneous heparin Code status: * Full code Dispo: Slow to resolve hypoxemia, plan SNF 11/13 Quality VTE Deep Vein Thrombosis/Pulmonary Embolism Present on Admission: No [facility] [employer] Rec[employer]iter Document charge(s): No Charge Codes Subsequent inpatient/observation care: [id number]
[2024-11-12] MEDS: CEFAZOLIN VIAL 1 GM in SODIUM CHLORIDE 0.9% 100 ML IV ×2 (13:07→20:26)
--- NOTE | 2024-11-12 13:47 | PT.IIE ---
Current Diagnoses Pneumonia, unspecified organism (11/05/24) Surgical History (Last Reviewed 11/12/24 @ 12:08 by Blaine Lambert MD) Anesthesia History of History of surgery (10/29/18) Hx of Achilles tendon repair (~2004) Medical History (Last Reviewed 11/12/24 @ 12:08 by Blaine Lambert MD) Ankle pain Asthma Carpal tunnel syndrome Chicken pox Chronic back pain Chronic cough Degenerative joint disease of knee Depression Diabetes insipidus Ectopic breast tissue Elevated liver enzymes Facet arthropathy, lumbar Heavy menstrual period Herniated nucleus pulposus, L4-5 History of COVID-19 (~09/2022) Hypertension Leg numbness Lumbar radiculopathy Lumbar spinal stenosis Lumbar spondylosis Measles Neuroforaminal stenosis of lumbar spine Osteoarthritis Painful menstrual periods Shoulder bursitis Vertigo Physical Therapy Inpatient Evaluation/Re-Eval M1 PT/OT-IP Prior Functional Status Start: 11/12/24 16:09 Freq: NEEDED Status: Active Protocol: Document 11/12/24 13:47 AB (Rec: 11/12/24 16:23 AB [id number]) Medical Review Prior Functional Status Medical History Yes Reviewed Communication able to make needs known Mobility and Gait pt stated that she was modified independent with all mobilities and ambulation using between a 4WW and a SPC . pt stated that she usually uses a 4WW first thing in the morning and when she has to cook but as the day goes, uses a SPC when she feels more stable. Activities of Daily Pt states her does meds and $, and she assist Living and IADL's with cooking while use of 4ww. Social History Household Members spouse,children Living Arrangements House Number of Floors ( Two Floors Floors) Number of Stairs To pt stays on the main level of the house Enter/Railing? Has 2 steps with bilateral rail to enter Home Environment Standard Height Toilet,Walk in Shower Home Equipment Four Wheel Walker,Straight Cane,Shower Seat without Backrest,Bed Rails,Grab Bars Near Toilet,Grab Bars In Shower Additional Social pt lives with her spouse and 2 daughters that can History Comment assist her if needed M2 PT-IP Current Condition Start: 11/12/24 16:09 Freq: NEEDED Status: Active Protocol: Document 11/12/24 13:47 AB (Rec: 11/12/24 16:23 AB [id number]) Physical Therapy Current Condition Current Condition Evaluation Date 11/12/24 Treatment Diagnosis PNA; RSV; difficulty in walking Onset Date 11/05/24 M3 PT-IP Subjective Start: 11/12/24 16:09 Freq: NEEDED Status: Active Protocol: Document 11/12/24 13:47 AB (Rec: 11/12/24 16:23 AB [id number]) Subjective Physical Therapy Visit Type Type Initial Evaluation Visit Start Time 13:47 Visit Stop Time 14:15 Number of ICE PLANT OPERATOR Visits 0 Physical Therapy Visit Comments Patient Comments agreeable to do PT M4 PT-IP Mobility and Gait Start: 11/12/24 16:09 Freq: NEEDED Status: Active Protocol: Document 11/12/24 13:47 AB (Rec: 11/12/24 16:23 AB [id number]) PT-Bed Mobility Assessment Supine to Sit Supine to Sit Standby Assistance PT-Transfer Assessment Sit to and From Stand Sit to and from Contact Guard Assistance,1 Person Assistance,Use of Stand Upper Extremities Equipment Transfer Assistive Gait Belt,4 Wheeled Walker Device Orthotic/Prosthetic No Devices or Brace: Transfers Transfer Destination Toilet Transfer Technique ambulated Transfer Ability Level of Assist Standby Assistance,Contact Guard Assistance,1 Person Assistance,Use of Upper Extremities Comments Mobility Comments pt in bed and agreeable to do PT. obtained PLOF and home set up. pt on 3L/min O2 and O2 sat: 90-94%. pt completed supine to sit SBA. able to sit on EOB SBA. O2 sat: 87-88%. O2 increased to 4L/min. pt's O2 sat increased to 91% in >3min. pt requested to use the toilet. sit to stand CGA and ambulated to the toilet using 4WW SBA to CGA and cues ~ 12 ft. O2 sat: 84-86%. cued for deep breathing. pt needing to use the toilet for a while. Left pt with OT. Gait Assessment Gait Gait Assistance Standby Assistance,Contact Guard Assist Required: Distance (Feet) 12 Able to Maintain Yes Weight Bearing Status During Gait Assistive Devices Assistive Device Gait Belt,4 Wheeled Walker Orthotic/Prosthetic No Devices or Brace: Gait Deviations General Gait Pattern Decreased Stride Length,Decreased Feet Clearance Factors Limiting Gait Function Factors Limiting Decreased Activity Tolerance,Decreased Strength,Poor Gait Function Balance,Poor Safety Awareness,Respiratory Distress PT-Balance Assessment Sitting Balance and Reactions Static Sitting Normal Balance Ability Dynamic Sitting Good Balance Ability Standing Balance and Reactions Static Standing Fair Balance Ability Dynamic Standing Fair Balance Ability Device Used 4WW M5 PT-IP Objective Assessments Start: 11/12/24 16:09 Freq: NEEDED Status: Active Protocol: Document 11/12/24 13:47 AB (Rec: 11/12/24 16:23 AB [id number]) Orientation Orientation/Cognition Level of Alertness Alert Orientation Name,Place,Situation Language Function No Deficits Noted Ability Safety Awareness Decreased Safety Awareness Memory Description No Deficits Noted Gross Range of Motion Lower Extremity ROM Assessment Within Functional Limits Strength Lower Extremity Strength Assessment Within Functional Limits Sensation Assessment Sensation Gross Sensation WNL Muscle Tone Muscle Tone WNL Yes M6 PT-IP Treatment Start: 11/12/24 16:09 Freq: NEEDED Status: Active Protocol: Document 11/12/24 13:47 AB (Rec: 11/12/24 16:23 AB [id number]) Physical Therapy Treatment Education Education Provided Safety M7 PT-IP Assessment and Plan Start: 11/12/24 16:09 Freq: NEEDED Status: Active Protocol: Document 11/12/24 13:47 AB (Rec: 11/12/24 16:23 AB [id number]) PT Summary Assessment and Plan Potential Rehabilitation Fair Potential Status of Condition Unstable at Evaluation Summary Impairments Pain,ROM,Strength,Balance,Coordination,Sensation,Tone, Cognition,Bed Mobility,Transfers,Gait,Activity Tolerance Assessment Summary pt is a 69y/o F who is admitted for PNA; RSV. pt requiring SBA to CGA with mobility using FWW but with decrease in O2 sat to ~ 84-85% with 4L/min O2 with short distance ambulation using 4WW. pt needed increase time to recover O2 sat to 91%. d/c plan depending on progress: SNF vs home with assist and HHPT. will continue to assess. Goals Bed Mobility Goal Independent Transfer Goal Independent,Four Wheeled Walker Gait Goal Independent,Four Wheel Walker Gait Distance 75 Other Goals improve transfers, ambulation using LRAD ~ 150 ft mod I up/down 2 steps B rails SBA Days to Meet Goals 10 Frequency of Treatment Frequency Of Once a Day Treatment Treatment Plan Physical Therapy Bed Mobility Training,Transfer Training,Gait Training, Treatment Plan Therapeutic Exercise,Balance Retraining,Discharge Planning,Hot or Cold Pack,Neuromuscular Re-ed, Coordination Retraining Precautions Other Precautions O2 sat Recommendations To Nursing Amount of Assist 1 Person Assist Needed Discharge Recommendations PT Discharge Home with Assistance,Home Health,SNF Rehab,Home vs SNF Recommendations Transportation Needs Private Vehicle,Wheelchair/Cabulance at Discharge - PT assist 1
--- NOTE | 2024-11-12 14:29 | OT.IP.TRT ---
Current Diagnoses Pneumonia, unspecified organism (11/05/24) Occupational Therapy Treatment Note M2 OT-IP Current Condition Start: 11/12/24 14:35 Freq: Status: Active Protocol: Document 11/12/24 14:35 [facility] (Rec: 11/12/24 15:13 [facility] Desktop) Occupational Therapy Current Condition Current Condition Evaluation Date 11/12/24 Treatment Diagnosis PNA, hypoxia, RSV Diagnosis Onset Date 11/05/24 M3 OT- IP Subjective and Pain Start: 11/12/24 14:35 Freq: Status: Active Protocol: Document 11/12/24 14:35 [facility] (Rec: 11/12/24 15:13 [facility] Desktop) OT- Subjective Occupational Therapy Visit Type Type Initial Evaluation Occupational Therapy Visit Comments Patient Comments Pt agreed to get up to the bathroom and sponge off. Patient/Caregiver Pt is adamant to go home. Goals OT Pain Assessment Pain When Pain Assessed At Rest Pain Present Pain Present Denied Pain M4 OT- IP ADL's Start: 11/12/24 14:35 Freq: Status: Active Protocol: Document 11/12/24 14:35 [facility] (Rec: 11/12/24 15:13 [facility] Desktop) OT [id number] Comments OT Self-Feeding Not at meal time. Comments OT ADL-Grooming Comments OT Grooming Comments Not observed. OT ADL-Oral Care Comments Oral Care Comments Not observed. OT ADL-Dressing General Eval Lower Body Dressing Maximum Assistance Ability Areas Needing Underpants/Brief,Socks Assistance Comments OT Dressing Comments Assist for socks and brief management needs. OT ADL-Toileting General Evaluation Toileting Ability Moderate Assistance Areas Needing Manage Clothing,Perform Perineal Hygiene Assistance Comments OT Toileting Assist to help wipe for completeness. Educated pt use Comments possible getting toilet paper aid or bidet. Pt was brief was very wet. Pt states ay home uses pads/brief. OT ADL-Bathing Bathing Type Bathing Type Sponge Bath General Evaluation Bathing Ability Maximal Assistance Areas Needing Wash/Dry Back,Wash/Dry Perineal Area,Wash/Dry Lower Assistance Extremities Comments OT Bathing Comments Pt was very fatigued and needing assist to help sponge off at this time. Pt will benefit from assist at home and getting a HHSP. M5 OT- IP IADL's Start: 11/12/24 14:35 Freq: Status: Active Protocol: Document 11/12/24 14:35 [facility] (Rec: 11/12/24 15:13 [facility] Desktop) OT-Instrumental Activities of Daily Living Deficits IADL Deficits Deficits Identified Home Safety Awareness Awareness of Need Good Awareness for Assistance at Home Home Safety Comments Due to SOB, hypoxia, pt will need assist for IADL needs . Medication Management Medication Caregiver Administers Management Money Management Money Management Caregiver Provides Assistance Meal Preparation Meal Preparation Pt will need assist. Comments Steamer Tender Steamer Tender Pt will need assist. Comments M6 OT- IP Functional Cognition Start: 11/12/24 14:35 Freq: Status: Active Protocol: Document 11/12/24 14:35 [facility] (Rec: 11/12/24 15:13 [facility] Desktop) Cognitive Factors Limiting Selfcare Function Cognitive Ability Level of Alertness Alert Patient Orientation Name,Age,Birthday,Month,Date,Year,Day of Week,Place, Situation Attention Span Capable of Focused Attention,Capable of Sustained Ability Attention Ability to Follow Able to Follow One Step Commands Commands Safety Awareness Underestimates Need for Assistance Cognitive Comments Cognitive Assessment Pt able to follow commands for ADL and mobility needs. Comments Pt needing reminders to push up from surfaces versus push on her 4ww to stand. Also cues to reach back to sit down or hold onto grab bar as weel. OT- Vision and Hearing OT- Hearing Assessment OT- Hearing WFL Assessment OT- Vision Assessment Visual Acuity WFL Visual Attentiveness WFL Occular Pursuits WFL M7 OT- IP Mobility and Balance Start: 11/12/24 14:35 Freq: Status: Active Protocol: Document 11/12/24 14:35 [facility] (Rec: 11/12/24 15:13 [facility] Desktop) OT- Bed Mobility Assessment Supine to Sit Supine to Sit Assist Standby Assistance,Bedrails OT-Transfer Assessment Sit to and From Stand Sit to and from Standby Assistance,Contact Guard Assistance Stand Transfers Transfer Ability Contact Guard Assistance Technique Transfer Destination Bed,Chair,Toilet Transfer Technique Stand Step Pivot Devices Transfer Assistive Gait Belt,Front Wheeled Walker Devices Comments Mobility Comments CGA/close SBA with 4ww and assist to help manage the O2 tubing. Pt gets very SOB. On 3L Pt from 88-93% and able to get ok to increase to 4L to be able to get into the bathroom. After use of toilet and sponge off, pt at 82% on 4L after sitting to the recliner and able to get to 88% after several minutes. Left pt with nursing . OT- Balance Assessment Sitting Balance and Reactions Static Sitting Normal Balance Ability Dynamic Sitting Good Balance Ability Standing Balance and Reactions Static Standing Good Balance Ability Dynamic Standing Fair Balance Ability M8 OT- IP Objective Assessments Start: 11/12/24 14:35 Freq: Status: Active Protocol: Document 11/12/24 14:35 [facility] (Rec: 11/12/24 15:13 [facility] Desktop) OT Gross Range of Motion Upper Extremity Range of Motion Assessment Within Functional Limits OT Strength Upper Extremity Strength Assessment Within Functional Limits M9 OT- IP Assessment and Plan Start: 11/12/24 14:35 Freq: Status: Active Protocol: Document 11/12/24 14:35 [facility] (Rec: 11/12/24 15:13 [facility] Desktop) OT Summary Assessment and Plan Potential Rehabilitation Good Potential Analytic Complexity Moderate at Evaluation Summary OT Impairments Balance,Functional Mobility,Grooming,Dressing,Toileting ,Bathing,Toilet Transfers,Shower Transfers,Activity Tolerance Progress Towards Slow Progress due to Medical Issues,Slow Progress due Goals to Activity Tolerance Assessment Summary Pt MOD complexity and main barriers are steps, decreased activity tolerance due to SOB - O2 on 4L decreased from 92% to 82% after use of the bathroom. Able to give pt energy conservation information. Pt is insistent on going home. However pending assist at home and medical needs, pt may benefit from short skilled rehab versus home with 24/7 available assist. Goals Self-Feeding Goal Independent Grooming Goal Independent Dressing Goal Independent Toileting Goal Independent Bathing Goal Independent Toilet Transfer Goal Independent Shower Transfer Goal Independent Patient/Caregiver Demonstrate Energy Conservation and Pacing Education Goal Days to Meet Goals 10 Frequency of Treatment Other frequency 5x/week Treatment Plan OT Treatment Plan ADL Training,Functional Mobility,Patient/Family Education,Discharge Planning Discharge Recommendations OT Discharge Home with 24/7 Assist Available,SNF Rehab,Home vs SNF Recommendations Home Equipment Needs HHPS
--- NOTE | 2024-11-12 16:15 | CM.DPNOTE ---
DCP Continued: Reviewed EMR and team rounds for pt?s medical status. Per hospitalist, pt's oxygenation still being monitored as she is at 4L O2 currently. Gave verbal orders for this VIRTUAL OFFICE ASSISTANT to place orders for PT/OT eval and treat. Per PT/OT, pt would benefit from SNF Rehab due to exertion with minimal movement but could also go home with family assistance if tolerating well. DCP entered room, introduced self and role. Provided Medicare Choice List for pt review, discussed PT/OT recommendations. Pt states she wants to review this decision with her family, states if she did decide to go to SNF, Only in [place] is her preference. Considerations: Will need [employer] authorization if pt agrees with SNF Rehab. Plan: Pending pt preference for discharge to SNF vs. home, CM Team will continue to follow for coordination of discharge plans. JOSE Constantino
[2024-11-12] MEDS: IBUPROFEN 600 MG TABLET PO (20:28)
[2024-11-13] VITALS (7 sets, daily range): BP systolic 111–139; BP diastolic 53–73; PULSE 56–68; RESP 18–21; TEMP 36.1–36.5; O2SAT 91–95
[2024-11-13 07:05] LABS: Add Manual Diff / Slide Review NO; Basophils Absolute Auto 100 /uL (0-100); Basophils Percent Auto 1.2 % (0-2); Eosinophils Absolute Auto 300 /uL (0-450); Eosinophils Percent Auto 4.3 % (2-4); Hematocrit 38.8 % (36-46); Hemoglobin 12.9 g/dL (12.0-16.0); Lymphocytes Absolute Auto 1400 /uL (1100-4500); Lymphocytes Percent Auto 18.6 % (25-40); Mean Corpuscular HGB Conc 33.2 % (30-36); Mean Corpuscular Volume 96.5 fL (80-100); Monocytes Absolute Auto 700 /uL (0-900); Monocytes Percent Auto 9.3 % (3-14); Neutrophils Absolute Auto 5200 /uL (1500-7000); Neutrophils Percent Auto 66.6 % (50-75); Platelet Count 208 X10^3/uL (150-400); Red Blood Cell Count 4.03 X10^6/uL (4.0-5.2); Red Cell Distribution Width 15.3 % (11.6-14.8); White Blood Cell Count 7.8 X10^3/uL (4.5-11.0)
[2024-11-13 07:23] LABS: BUN Creatinine Ratio 26.1 (6-22); Blood Urea Nitrogen 12 mg/dL (7-17); Calcium 8.3 mg/dL (8.4-10.2); Carbon Dioxide 34 mmol/L (22-32); Chloride 106 mmol/L (98-107); Estimated Glomerular Filt Rate > 60 mL/min (>60); Glucose 87 mg/dL (70-99); HEMOLYSIS < 15 (0-50); Potassium 4.1 mmol/L (3.4-5.1); Sodium 140 mmol/L (137-145)
[2024-11-13] MEDS: HEPARIN 5,000 UNIT/ML VIAL 5000 UNIT SUBCUT ×2 (09:08→20:20)
[2024-11-13] MEDS: SODIUM CHLORIDE 0.9% FLUSH 10 ML IV (09:09)
[2024-11-13] MEDS: CHOLECALCIFEROL (VITAMIN D3) 5,000 UNIT TABLET 5000 UNIT PO (09:09)
[2024-11-13] MEDS: SERTRALINE 50 MG TABLET 75 MG PO (09:09)
[2024-11-13] MEDS: predniSONE 20 MG TABLET 40 MG PO (09:09)
[2024-11-13] MEDS: ALBUTEROL 2.5 MG/3 ML NEB (ADULT) INH ×3 (09:36→19:47)
--- NOTE | 2024-11-13 10:49 | PM.PN.1 ---
Subjective Subjective Interval history: 69-year-old female with underlying history of depression but no other significant medical history who was admitted November 05 with acute respiratory failure, dyspnea on exertion, RSV, and MSSA superinfection. Yesterday she required 4 L of oxygen for saturations at 91%. She states she slept pretty well overnight. She reports she has been using her flutter valve and has been expectorating well. She has been expectorating clear/green phlegm. She is eating but notes the smell of meat is still something she can not tolerate. She has been drinking protein shakes and eating vegetables. She is less dyspneic with exertion. She notes she recovers faster than she has been during previous days. Exam Vital Signs (past 8 hours): - 11/13/24 06:00 11/13/24 08:00 11/13/24 09:51 Temperature 96.9 F L 97.7 F Pulse Rate 59 L 62 65 Respiratory Rate 19 19 18 Blood Pressure 125/69 139/73 Pulse Oximetry 94 94 95 Oxygen Delivery Method Nasal Cannula Oxygen Flow Rate 3 2 Fraction of Inspired Oxygen 28 Fraction of Inspired Oxygen 28 SaO2/FiO2 Ratio 339 Oxygen Delivery Method Nasal Cannula Oxygen Flow Rate 2 Narrative Exam Narrative: GEN: Very pleasant middle-aged female, Alert and oriented x 3, NAD HEENT:NC, Face symmetric CHEST: Respiratory excursions symmetric, CTA on the left, diffuse crackles and rhonchi on the right CV: RRR, no M/R/G ABD: Soft, obese, NT/ND, BT present in all 4 quadrants, body habitus limits exam EXTR: warm, well perfused, no C/C/E SKIN: warm and dry, no rash NEURO: Alert and oriented x 3, nonfocal Objective Labs 11/13/24 06:47 11/13/24 06:47 Labs: Laboratory Results - last 24 hr 11/13/24 06:47 WBC 7.8 RBC 4.03 Hgb 12.9 Hct 38.8 MCV 96.5 MCH 32.0 MCHC 33.2 RDW 15.3 H Plt Count 208 Neut % (Auto) 66.6 Lymph % (Auto) 18.6 L [place] % (Auto) 9.3 Eos % (Auto) 4.3 H Baso % (Auto) 1.2 Neut # (Auto) 5200 Lymph # (Auto) 1400 [place] # (Auto) 700 Eos # (Auto) 300 Baso # (Auto) 100 Sodium 140 Potassium 4.1 Chloride 106 Carbon Dioxide 34 H BUN 12 Creatinine 0.46 L Estimated GFR > 60 BUN/Creatinine Ratio 26.1 H Glucose 87 Calcium 8.3 L PFSH Medical History Ankle pain Asthma Carpal tunnel syndrome Chicken pox Chronic back pain Chronic cough Degenerative joint disease of knee Depression Diabetes insipidus Ectopic breast tissue Elevated liver enzymes Facet arthropathy, lumbar Heavy menstrual period Herniated nucleus pulposus, L4-5 History of COVID-19 (~09/2022) Hypertension Leg numbness Lumbar radiculopathy Lumbar spinal stenosis Lumbar spondylosis Measles Neuroforaminal stenosis of lumbar spine Osteoarthritis Painful menstrual periods Shoulder bursitis Vertigo Surgical History Anesthesia History of History of surgery (10/29/18) Hx of Achilles tendon repair (~2004) Family History Father Gallstones Diabetes mellitus Mother Diabetes mellitus Hyperlipidemia Hypertension Mental health problem Sister Diabetes mellitus Heart disease Mental health problem Grandfather Heart disease Grandmother Heart disease Brother Heart disease Diabetes mellitus Hyperlipidemia Hypertension Family/Other Colorectal cancer Brother Cirrhosis Social History marital status: household members: spouse and children occupational status: previously employed Smoking Status: Never smoker alcohol intake: current substance use type: does not use Assessment & Plan Assessment & Plan narrative: 1. RSV and MSSA extensive right sided pneumonia Patient received 8 days of IV antibiotics. These have been discontinued. She has received a full course of antibiotics. She continues on supportive therapies. 2. Acute hypoxic respiratory failure O2 need is down from 4 liters/minute yesterday to 3 liters/minute today. She reports faster recovery when she is up and moving. She remains on prednisone 40 mg daily. Continue albuterol nebulizers. Ongoing slow improvement. 3. Class 3 obesity Her nutrition is not optimized presently. However, once she fully recovers from her illness, she would benefit from weight reduction. Code status Full Prophylaxis On heparin Disposition Possible discharge home if she has adequate help versus discharge to halfway Time-Based Coding :: [TOTAL MINUTES] spent with patient and on the chart (including review of chart, obtaining history, exam, reviewing outside data, placing orders, documenting exam and treatment plan, and counseling patient) on [DATE]. Quality VTE Deep Vein Thrombosis/Pulmonary Embolism Present on Admission: No
--- NOTE | 2024-11-13 14:50 | PT.IPTN ---
Current Diagnoses Pneumonia, unspecified organism (11/05/24) Physical Therapy Treatment Note M2 PT-IP Current Condition Start: 11/12/24 16:09 Freq: NEEDED Status: Active Protocol: Document 11/12/24 13:47 AB (Rec: 11/12/24 16:23 AB [id number]) Physical Therapy Current Condition Current Condition Evaluation Date 11/12/24 Treatment Diagnosis PNA; RSV; difficulty in walking Onset Date 11/05/24 M3 PT-IP Subjective Start: 11/12/24 16:09 Freq: NEEDED Status: Active Protocol: Document 11/13/24 14:50 AB (Rec: 11/13/24 15:38 AB Desktop) Subjective Physical Therapy Visit Type Type Treatment Note Visit Start Time 14:50 Visit Stop Time 15:20 Number of CHEMICAL DEPENDENCY PROFESSIONAL Visits 0 Physical Therapy Visit Comments Patient Comments agreeable to do PT M4 PT-IP Mobility and Gait Start: 11/12/24 16:09 Freq: NEEDED Status: Active Protocol: Document 11/13/24 14:50 AB (Rec: 11/13/24 15:38 AB Desktop) PT-Transfer Assessment Sit to and From Stand Sit to and from Standby Assistance,1 Person Assistance,Use of Upper Stand Extremities Equipment Transfer Assistive Gait Belt,4 Wheeled Walker Device Orthotic/Prosthetic No Devices or Brace: Comments Mobility Comments pt sitting on the chair and agreeable to do PT. O2 sat monitored. pt with 3L/min O2 and saturation at 91%. completed sit to stand SBA and ambulated in room using 4WW ~ 30 ft SBA. cued for deep breathing in between activities. pt sat back on chair. O2 sat at 86%. O2 sat increased to 88% in ~ 30 sec. O2 sat returned to 90 -91% after 1-2 min. pt rested. ambulated again using 4WW SBA 30 ft. O2 sat after ambulation seated on chair 85%. increased to 88~ in ~ 1min. positioned pt on chair. call light and table placed within reach. O2 sat stayed at 87-88% until end of PT session. informed nurse. Gait Assessment Gait Gait Assistance Standby Assistance Required: Distance (Feet) 30 Able to Maintain Yes Weight Bearing Status During Gait Assistive Devices Assistive Device Gait Belt,4 Wheeled Walker Orthotic/Prosthetic No Devices or Brace: Gait Deviations General Gait Pattern Decreased Stride Length Factors Limiting Gait Function Factors Limiting Decreased Activity Tolerance,Poor Balance,Respiratory Gait Function Distress M5 PT-IP Objective Assessments Start: 11/12/24 16:09 Freq: NEEDED Status: Active Protocol: Document 11/12/24 13:47 AB (Rec: 11/12/24 16:23 AB [id number]) Orientation Orientation/Cognition Level of Alertness Alert Orientation Name,Place,Situation Language Function No Deficits Noted Ability Safety Awareness Decreased Safety Awareness Memory Description No Deficits Noted Gross Range of Motion Lower Extremity ROM Assessment Within Functional Limits Strength Lower Extremity Strength Assessment Within Functional Limits Sensation Assessment Sensation Gross Sensation WNL Muscle Tone Muscle Tone WNL Yes M6 PT-IP Treatment Start: 11/12/24 16:09 Freq: NEEDED Status: Active Protocol: Document 11/13/24 14:50 AB (Rec: 11/13/24 15:38 AB Desktop) Physical Therapy Treatment Education Education Provided Safety M7 PT-IP Assessment and Plan Start: 11/12/24 16:09 Freq: NEEDED Status: Active Protocol: Document 11/13/24 14:50 AB (Rec: 11/13/24 15:38 AB Desktop) PT Summary Assessment and Plan Potential Rehabilitation Fair Potential Summary Impairments Pain,ROM,Strength,Balance,Coordination,Sensation,Tone, Cognition,Bed Mobility,Transfers,Gait,Activity Tolerance Progress Towards Slow Progress due to Medical Issues,Slow Progress due Goals to Activity Tolerance Assessment Summary pt requiring SBA with mobility but with decrease activity tolerance with decrease in O2 sat to 85-86% with 3L/min O2 after 30 ft of ambulation using 4WW. pt will benefit from SNF rehab to improve overall strength and mobility independence. Goals Bed Mobility Goal Independent Transfer Goal Independent,Four Wheeled Walker Gait Goal Independent,Four Wheel Walker Gait Distance 75 Other Goals improve transfers, ambulation using LRAD ~ 150 ft mod I up/down 2 steps B rails SBA Days to Meet Goals 10 Frequency of Treatment Frequency Of Once a Day Treatment Treatment Plan Physical Therapy Bed Mobility Training,Transfer Training,Gait Training, Treatment Plan Therapeutic Exercise,Balance Retraining,Discharge Planning,Hot or Cold Pack,Neuromuscular Re-ed, Coordination Retraining Precautions Other Precautions O2 sat Recommendations To Nursing Amount of Assist 1 Person Assist Needed Discharge Recommendations PT Discharge SNF Rehab Recommendations Transportation Needs Private Vehicle,Wheelchair/Cabulance at Discharge - PT assist 1
--- NOTE | 2024-11-13 15:50 | CM.DPC ---
DCP SNF Planning: Per MD, pt improving but to work with PT/OT more and remains on oxygen with some desats. Per PT, pt not needing lots of assist but poor endurance and fatigue and pt does desat with exertion and remains on 3LO2 and does not have oxygen at baseline. Recommending SNF and pt agreeable as her spouse is frail and her two adult Dtrs work during the week. SW made initial referral to [facility] to review to determine bed availabilty and confirm they can accept her [facility] insurance. Plan: SW to follow for [facility] review and will need PASRR if SNF at d/c. ISA Tee
[2024-11-13] MEDS: IBUPROFEN 600 MG TABLET PO (20:19)
[2024-11-13] MEDS: ACETAMINOPHEN 325 MG TABLET 650 MG PO (20:20)
[2024-11-14] VITALS (7 sets, daily range): BP systolic 110–145; BP diastolic 67–75; PULSE 52–75; RESP 16–18; TEMP 36.2–36.8; O2SAT 91–95
[2024-11-14 07:15] LABS: Add Manual Diff / Slide Review NO; Basophils Absolute Auto 100 /uL (0-100); Basophils Percent Auto 1.3 % (0-2); Eosinophils Absolute Auto 300 /uL (0-450); Hematocrit 38.3 % (36-46); Hemoglobin 12.7 g/dL (12.0-16.0); Lymphocytes Absolute Auto 1600 /uL (1100-4500); Lymphocytes Percent Auto 21.1 % (25-40); Mean Corpuscular HGB Conc 33.2 % (30-36); Mean Corpuscular Hemoglobin 32.1 PG (26-34); Mean Corpuscular Volume 96.5 fL (80-100); Monocytes Absolute Auto 900 /uL (0-900); Monocytes Percent Auto 12.3 % (3-14); Neutrophils Absolute Auto 4600 /uL (1500-7000); Neutrophils Percent Auto 61.3 % (50-75); Platelet Count 219 X10^3/uL (150-400); Red Blood Cell Count 3.97 X10^6/uL (4.0-5.2); Red Cell Distribution Width 15.2 % (11.6-14.8); White Blood Cell Count 7.5 X10^3/uL (4.5-11.0)
[2024-11-14 07:25] LABS: BUN Creatinine Ratio 26.1 (6-22); Blood Urea Nitrogen 12 mg/dL (7-17); Calcium 8.3 mg/dL (8.4-10.2); Carbon Dioxide 34 mmol/L (22-32); Chloride 105 mmol/L (98-107); Estimated Glomerular Filt Rate > 60 mL/min (>60); Glucose 84 mg/dL (70-99); HEMOLYSIS < 15 (0-50); Potassium 3.9 mmol/L (3.4-5.1); Sodium 140 mmol/L (137-145)
[2024-11-14] MEDS: ALBUTEROL 2.5 MG/3 ML NEB (ADULT) INH ×2 (09:06→17:45)
[2024-11-14] MEDS: predniSONE 20 MG TABLET 40 MG PO (09:29)
[2024-11-14] MEDS: SERTRALINE 50 MG TABLET 75 MG PO (09:29)
[2024-11-14] MEDS: CHOLECALCIFEROL (VITAMIN D3) 5,000 UNIT TABLET 5000 UNIT PO (09:29)
[2024-11-14] MEDS: HEPARIN 5,000 UNIT/ML VIAL 5000 UNIT SUBCUT ×2 (09:30→20:31)
[2024-11-14] MEDS: SODIUM CHLORIDE 0.9% FLUSH 10 ML IV ×2 (09:30→20:31)
--- NOTE | 2024-11-14 10:35 | PT.IPTN ---
Current Diagnoses Pneumonia, unspecified organism (11/05/24) Physical Therapy Treatment Note M2 PT-IP Current Condition Start: 11/12/24 16:09 Freq: NEEDED Status: Active Protocol: Document 11/12/24 13:47 AB (Rec: 11/12/24 16:23 AB [id number]) Physical Therapy Current Condition Current Condition Evaluation Date 11/12/24 Treatment Diagnosis PNA; RSV; difficulty in walking Onset Date 11/05/24 M3 PT-IP Subjective Start: 11/12/24 16:09 Freq: NEEDED Status: Active Protocol: Document 11/14/24 10:17 KS (Rec: 11/14/24 12:49 KS [id number]) Subjective Physical Therapy Visit Type Type Treatment Note Visit Start Time 10:17 Visit Stop Time 10:35 Number of SPANISH LECTURER Visits 1 Physical Therapy Visit Comments Patient Comments Agreeable to do PT M4 PT-IP Mobility and Gait Start: 11/12/24 16:09 Freq: NEEDED Status: Active Protocol: Document 11/14/24 10:17 KS (Rec: 11/14/24 12:49 KS [id number]) PT-Transfer Assessment Sit to and From Stand Sit to and from Standby Assistance,1 Person Assistance,Use of Upper Stand Extremities Equipment Transfer Assistive Gait Belt,4 Wheeled Walker Device Orthotic/Prosthetic No Devices or Brace: Transfers Transfer Destination Chair,Toilet Transfer Technique ambulated Transfer Ability Level of Assist Standby Assistance,Contact Guard Assistance,1 Person Assistance,Use of Upper Extremities Comments Mobility Comments Pt in bathroom upon arrival on 1.5L O2 and wanting to go back to chair. SBA for sit<>stand w/ FWW. Pt ambulated !15 ft back to chair SBA. O2 checked and 81% pt c/o SOB. Increased O2 to 2.5L and O2 increased to 86 % ~2min. Pt denies SOB. Able to complete ankle pumps, quad sets, heel slides, SLR, and seated marching however does desat to 83% and reports some SOB during exercise. Pt recovered to 86% ~1 min. O2 decreased back to 1.5L and pt remains at 86% denies SOB. RN notified. Pt left in chair w/ all needs in reach. Gait Assessment Gait Gait Assistance Standby Assistance Required: Distance (Feet) 15 Able to Maintain Yes Weight Bearing Status During Gait Assistive Devices Assistive Device Gait Belt,4 Wheeled Walker Orthotic/Prosthetic No Devices or Brace: Factors Limiting Gait Function Factors Limiting Decreased Activity Tolerance,Poor Balance,Respiratory Gait Function Distress PT-Balance Assessment Sitting Balance and Reactions Static Sitting Normal Balance Ability Dynamic Sitting Good Balance Ability Standing Balance and Reactions Static Standing Fair Balance Ability Dynamic Standing Fair Balance Ability Device Used 4WW M5 PT-IP Objective Assessments Start: 11/12/24 16:09 Freq: NEEDED Status: Active Protocol: Document 11/12/24 13:47 AB (Rec: 11/12/24 16:23 AB [id number]) Orientation Orientation/Cognition Level of Alertness Alert Orientation Name,Place,Situation Language Function No Deficits Noted Ability Safety Awareness Decreased Safety Awareness Memory Description No Deficits Noted Gross Range of Motion Lower Extremity ROM Assessment Within Functional Limits Strength Lower Extremity Strength Assessment Within Functional Limits Sensation Assessment Sensation Gross Sensation WNL Muscle Tone Muscle Tone WNL Yes M6 PT-IP Treatment Start: 11/12/24 16:09 Freq: NEEDED Status: Active Protocol: Document 11/14/24 10:17 KS (Rec: 11/14/24 12:49 KS [id number]) Physical Therapy Treatment Exercises Exercises Ankle Pumps,Gluteal Sets,Quad Sets,Heel Slides,Straight Leg Raises Education Education Provided Safety Other Treatments Other Treatment seated marching Performed M7 PT-IP Assessment and Plan Start: 11/12/24 16:09 Freq: NEEDED Status: Active Protocol: Document 11/14/24 10:17 KS (Rec: 11/14/24 12:49 KS [id number]) PT Summary Assessment and Plan Potential Rehabilitation Fair Potential Summary Impairments Pain,ROM,Strength,Balance,Coordination,Sensation,Tone, Cognition,Bed Mobility,Transfers,Gait,Activity Tolerance Progress Towards Slow Progress due to Medical Issues,Slow Progress due Goals to Activity Tolerance Assessment Summary Pt continues to require SNA for mobility but is limited by SOB and decreased activity tolerance. Pt required 2 .5L O2 during ther ex, 1.5L at rest. Pt will require SNF to improve strength and functional mobility independence. Goals Bed Mobility Goal Independent Transfer Goal Independent,Four Wheeled Walker Gait Goal Independent,Four Wheel Walker Gait Distance 75 Other Goals improve transfers, ambulation using LRAD ~ 150 ft mod I up/down 2 steps B rails SBA Days to Meet Goals 10 Frequency of Treatment Frequency Of Once a Day Treatment Treatment Plan Physical Therapy Bed Mobility Training,Transfer Training,Gait Training, Treatment Plan Therapeutic Exercise,Balance Retraining,Discharge Planning,Hot or Cold Pack,Neuromuscular Re-ed, Coordination Retraining Precautions Other Precautions O2 sat Recommendations To Nursing Amount of Assist 1 Person Assist Needed Discharge Recommendations PT Discharge SNF Rehab Recommendations Transportation Needs Private Vehicle,Wheelchair/Cabulance at Discharge - PT assist 1
--- NOTE | 2024-11-14 13:01 | CM.DPC ---
DCP SNF Planning: Per MD, confirmed that pt's RSV+ results were actually from May 2024 during office visit. Ordered respiratory panel to determine any additional medical tx needs today. SW updated [facility] and they will follow for respiratory panel to determine if iso bed needed or not since RSV was May. [facility] confirms they can accept and submitted insurance auth with [employer]. SW met bedside with pt and spouse and updated on acceptance at [facility] and waiting for SNF auth and they confirm they remain in agreement with d/c to [facility]. Pt states she is starting to finally feel better but definitely not at baseline and feels SNF still needed before home. MADH[facility] call and signed for exempted hospital discharge due to depression and Zoloft. Kiera Chappell MSW
[2024-11-14 13:34] LABS: Adenovirus Not Detected (Not Detect); B. parapertussis Not Detected (Not Detecte); Bordetella pertussis Not Detected (Not Detect); Chlamydophila pneumoniae Not Detected (Not Detect); Coronavirus 229E Not Detected (Not Detect); Coronavirus HKU1 Not Detected (Not Detect); Coronavirus NL 63 Not Detected (Not Detect); Coronavirus OC43 Not Detected (Not Detect); Human Metapneumovirus Not Detected (Not Detect); Human Rhinovirus/Enterovirus Not Detected (Not Detect); Influenza A Not Detected (Not Detect); Influenza B Not Detected (Not Detect); Mycoplasma pneumoniae Not Detected (Not Detect); Parainfluenza Virus 1 Not Detected (Not Detect); Parainfluenza Virus 2 Not Detected (Not Detect); Parainfluenza Virus 3 Detected (Not Detect); Parainfluenza Virus 4 Not Detected (Not Detect); Respiratory Syncytial Virus Not Detected (Not Detect); SARS- CoV-2 Not Detected (Not Detecte)
--- NOTE | 2024-11-14 19:45 | P.PN_ITS ---
Subjective Subjective Interval history: 69-year-old female with underlying history of depression but no other significant medical history who was admitted November 05 with acute respiratory failure, dyspnea on exertion, viral infection, and MSSA superinfection. Two days ago, she required 4 L of oxygen for saturations at 91%. Yesterday she would weaned down to 3 liters/minute. She is now expectorating clear or yellow phlegm. She continues to struggle with the smell of meat, but is drinking her protein shakes. She has now been weaned to 2 L. she has slept well both last night and the night before. Exam Vital Signs (past 8 hours): - 11/14/24 12:00 11/14/24 16:00 11/14/24 18:09 Temperature 97.9 F 98.3 F Pulse Rate 66 61 75 Respiratory Rate 16 16 18 Blood Pressure 125/71 137/75 Pulse Oximetry 92 92 95 Oxygen Delivery Method Nasal Cannula Oxygen Flow Rate 2 2 Fraction of Inspired Oxygen 28 Fraction of Inspired Oxygen 28 SaO2/FiO2 Ratio 332 Oxygen Delivery Method Nasal Cannula Oxygen Flow Rate 2 Narrative Exam Narrative: GEN: Very pleasant middle-aged female, Alert and oriented x 3, NAD HEENT:NC, Face symmetric CHEST: Respiratory excursions symmetric, diffuse bilateral wheezes throughout CV: RRR, no M/R/G ABD: Soft, obese, NT/ND, BT present in all 4 quadrants, body habitus limits exam EXTR: warm, well perfused, no C/C/E SKIN: warm and dry, no rash NEURO: Alert and oriented x 3, nonfocal Objective Labs 11/14/24 06:45 11/14/24 06:45 Labs: Laboratory Results - last 24 hr 11/14/24 11/14/24 06:45 12:30 WBC 7.5 RBC 3.97 L Hgb 12.7 Hct 38.3 MCV 96.5 MCH 32.1 MCHC 33.2 RDW 15.2 H Plt Count 219 Neut % (Auto) 61.3 Lymph % (Auto) 21.1 L Day % (Auto) 12.3 Eos % (Auto) 4.0 Baso % (Auto) 1.3 Neut # (Auto) 4600 Lymph # (Auto) 1600 Day # (Auto) 900 Eos # (Auto) 300 Baso # (Auto) 100 Sodium 140 Potassium 3.9 Chloride 105 Carbon Dioxide 34 H BUN 12 Creatinine 0.46 L Estimated GFR > 60 BUN/Creatinine Ratio 26.1 H Glucose 84 Calcium 8.3 L Chlamy pneumoniae PCR Not detected Adenovirus (PCR) Not detected B. pertussis DNA (PCR) Not detected B.parapertussis DNA PCR Not detected Coronavirus OC43 (PCR) Not detected Coronavirus HKU1 (PCR) Not detected Coronavirus 229E (PCR) Not detected SARS-CoV-2 (PCR) Not detected Coronavirus NL63 (PCR) Not detected Human Metapneumovir PCR Not detected Influenza Type A (PCR) Not detected Influenza Type B (PCR) Not detected M. pneumoniae (PCR) Not detected Parainfluenza 1 (PCR) Not detected Parainfluenza 2 (PCR) Not detected Parainfluenza 3 (PCR) Detected H Parainfluenza 4 (PCR) Not detected RSV (PCR) Not detected Entero/Rhino (PCR) Not detected PFSH Medical History Ankle pain Asthma Carpal tunnel syndrome Chicken pox Chronic back pain Chronic cough Degenerative joint disease of knee Depression Diabetes insipidus Ectopic breast tissue Elevated liver enzymes Facet arthropathy, lumbar Heavy menstrual period Herniated nucleus pulposus, L4-5 History of COVID-19 (~09/2022) Hypertension Leg numbness Lumbar radiculopathy Lumbar spinal stenosis Lumbar spondylosis Measles Neuroforaminal stenosis of lumbar spine Osteoarthritis Painful menstrual periods Shoulder bursitis Vertigo Surgical History Anesthesia History of History of surgery (10/29/18) Hx of Achilles tendon repair (~2004) Family History Father Gallstones Diabetes mellitus Mother Diabetes mellitus Hyperlipidemia Hypertension Mental health problem Sister Diabetes mellitus Heart disease Mental health problem Grandfather Heart disease Grandmother Heart disease Brother Heart disease Diabetes mellitus Hyperlipidemia Hypertension Family/Other Colorectal cancer Brother Cirrhosis Social History marital status: household members: spouse and children occupational status: previously employed Smoking Status: Never smoker alcohol intake: current substance use type: does not use Assessment & Plan Assessment & Plan narrative: 1. Viral and MSSA extensive right sided pneumonia Patient received 8 days of IV antibiotics, which was a full course. They were discontinued yesterday. As mentioned, her RSV testing was miss interpreted. The testing had been done in May of this year, not this hospitalization. As such, patient had a respiratory panel performed this morning, which was positive for parainfluenza 3. This was likely the etiology of her viral pneumonia. She remained in precautions for now, although it is likely she is no longer contagious as her symptoms started well over a week ago. She continues on supportive therapies. 2. Acute hypoxic respiratory failure O2 need is down from 3 L/minute yesterday to 2 liters/minute today. She reports faster recovery when she is up and moving. She remains on prednisone 40 mg daily, which will be complete on 11/16/2024. Continue albuterol nebulizers. She is wheezy today, but notes ongoing improvement. 3. Class 3 obesity Her nutrition is not optimized presently. However, once she fully recovers from her illness, she would benefit from weight reduction. Code status Full Prophylaxis On heparin Disposition [facility] as she is quite deconditioned. She will not require isolation precautions upon discharge. Time-Based Coding :: [TOTAL MINUTES] spent with patient and on the chart (including review of chart, obtaining history, exam, reviewing outside data, placing orders, documenting exam and treatment plan, and counseling patient) on [DATE]. Quality VTE Deep Vein Thrombosis/Pulmonary Embolism Present on Admission: No
[2024-11-15 02:00] VITALS: BP 143/55; PULSE 54; RESP 18; TEMP 36.5; O2SAT 91
[2024-11-15 08:00] VITALS: BP 157/62; PULSE 62; RESP 18; TEMP 36.4; O2SAT 95
--- NOTE | 2024-11-15 09:09 | DIET.PN1 ---
Dietary Progress Note Assessment: RD f/u Recorded PO intakes 75-100%. DFM reviewed. Meal composition includes meat and non-meat protein sources at each meal and is adequate in other macros. Ht: 152.4 cm Wt: 86.183 kg BMI: 37.0 UBW: 190 lb (86kg) per pt in last 6 months Last BM: 11/14/24 (11/14/24 15:00) MNA: Alonso Score: 21 Diet: 11/05/24 Dinner General (Regular) Diet Diet Modifications: Nutrition Percent Meal Consumed 100% 11/15/24 08:00 Percent Meal Consumed 75% 11/14/24 16:00 Percent Meal Consumed 100% 11/14/24 15:00 Percent Meal Consumed 75% 11/14/24 08:00 Labs: RBC 3.97 X10^6/uL (4.0-5.2) L 11/14/24 06:45 Hgb 12.7 g/dL (12.0-16.0) 11/14/24 06:45 Hct 38.3 % (36-46) 11/14/24 06:45 Creatinine 0.46 mg/dL (0.52-1.04) L 11/14/24 06:45 Lactate 1.9 mmol/L (0.7-2.1) 11/09/24 09:16 NT-Pro-B Natriuret Pep 465 pg/mL (<125) H 11/05/24 13:47 Nutrition Diagnosis: no further dx Monitoring/Evaluations: no interventions needed, f/u in 5 days to review PO intakes. Electronically Signed by: Nell Edmond 11/15/24 09:09 Clinical Dietitian [address] [id number]
[2024-11-15 10:00] VITALS: O2SAT 92
[2024-11-15] MEDS: predniSONE 20 MG TABLET 40 MG PO (10:00)
[2024-11-15] MEDS: SERTRALINE 50 MG TABLET 75 MG PO (10:00)
[2024-11-15] MEDS: HEPARIN 5,000 UNIT/ML VIAL 5000 UNIT SUBCUT (10:00)
[2024-11-15] MEDS: SODIUM CHLORIDE 0.9% FLUSH 10 ML IV (10:01)
[2024-11-15] MEDS: CHOLECALCIFEROL (VITAMIN D3) 5,000 UNIT TABLET 5000 UNIT PO (10:05)
--- NOTE | 2024-11-15 10:19 | CM.DPC ---
Addendum entered by ISA Tee 11/15/24 12:37: ADD: Per [facility], they obtained insurance auth for SNF and can accept pt this afternoon and will work on time for transport. kindly completed discharge and signed med list and CC Margaret sending d/c packet to [facility] to review and will help to confirm time of transport to let RN and ORDERLY know. ISA Tee Original Note: DCP COnt: Per MD, pt down to 2LO2 and respiratory panel came back RSV negative but parainfluenza 3 positive but pt already admitted for 10 days and treatment provided and will not need isolation precautions at discharge and MD feels pt stable for d/c to SNF once secured. SW called [facility] and confirms still waiting on [employer] auth for SNF. Will continue to follow for auth today. ISA Tee
--- NOTE | 2024-11-15 12:12 | PM.DS.1 ---
History of Present Illness History of Present Illness Date Patient Seen: 11/15/24 Time Patient Seen: 12:12 Chief complaint: SOB low oxygen cough sent by walk in Narrative: Per admitting provider, Chief complaint: Cough dyspnea on exertion and hypoxic respiratory failure secondary to right-sided pneumonia with lactic acidosis History of present illness: 11/05: 69-year-old female history of depression denies any other medical issues states for the past week and a half developed initially little bit of a cough that has been nonproductive and then became increasingly short of breath initially with exertion and now even at rest. Patient states no chest pain but it was has a little tightness. She states cough has not become productive. No hemoptysis. She was felt flushed at times but no fevers that she was aware. She states little bit of nasal congestion. Denies any abdominal back or flank pain. No issues with bowel movements such as diarrhea or constipation. No new swelling in extremities. No new urinary symptoms. Patient states he takes medication for depression and sometimes CBD pills for pain secondary to a prior knee replacement. States no hypertension, no diabetes, no dyslipidemia no prior strokes or heart attacks. States her knee surgery was a year and a half ago. No tobacco, has a 1 or 2 beers daily, no recreational drugs. Dr. Menezes is her primary care physician. Patient states no long distance travel. No estrogen. Past medical, past surgical, family, social history, medications please see bottom of the note Review of systems: No headache diplopia blurred vision No chest pains palpitations No nausea vomiting diarrhea No urinary symptoms Discharge Providers Provider Date of admission: 11/05/24 15:27 Discharge Date: 11/15/24 Primary care physician: Fletcher Menezes MD Consults: 11/12/24 11:45 Consult to Occupational Therapy Evaluate & Treat Comment: Physician Instructions: Evaluate and treat Consult to Physical Therapy Evaluate & Treat Comment: Physician Instructions: Evaluate and Treat Discharge provider: Enzo Kwan DO Summary Hospital Course Discharge Diagnosis: 1. Viral and MSSA extensive right sided pneumonia 2. Acute hypoxic respiratory failure 3. Class 3 obesity Hospital Course: This is a 69-year-old female with a past medical history of obesity who was admitted with acute hypoxic respiratory failure secondary to a viral and post viral emesis a pneumonia. She completed a course of 8 days of IV antibiotics while here in the hospital, repeat respiratory panel showed a parainfluenza infection. She remained on supplemental oxygen and had been started on steroids as well as inhalers while here in the hospital. She had slow steady improvement but was unable to wean from 2 L of oxygen, though she was recommended for retirement facility for additional therapies prior to return home. She was discharged on 11/15 still on 2 L of oxygen to retirement. She will complete another 2 days of steroids after discharge. No other changes to her home medications were recommended the time of discharge. Time Spent with Patient Time spent: Greater than 30 minutes Exam Vital Signs (past 8 hours): - 11/15/24 08:00 Temperature 97.6 F Pulse Rate 62 Respiratory Rate 18 Blood Pressure 157/62 H Pulse Oximetry 95 Oxygen Flow Rate 2 Fraction of Inspired Oxygen 28 SaO2/FiO2 Ratio 332 Oxygen Delivery Method Nasal Cannula Oxygen Flow Rate 2 Narrative Exam Narrative: GEN: Very pleasant middle-aged female, Alert and oriented x 3, NAD HEENT:NC, Face symmetric CHEST: Respiratory excursions symmetric, diffuse bilateral wheezes throughout CV: RRR, no M/R/G ABD: Soft, obese, NT/ND, BT present in all 4 quadrants, body habitus limits exam EXTR: warm, well perfused, no C/C/E SKIN: warm and dry, no rash NEURO: Alert and oriented x 3, nonfocal Objective Labs 11/14/24 06:45 11/14/24 06:45 Labs: Laboratory Results - last 24 hr 11/14/24 12:30 Chlamy pneumoniae PCR Not detected Adenovirus (PCR) Not detected B. pertussis DNA (PCR) Not detected B.parapertussis DNA PCR Not detected Coronavirus OC43 (PCR) Not detected Coronavirus HKU1 (PCR) Not detected Coronavirus 229E (PCR) Not detected SARS-CoV-2 (PCR) Not detected Coronavirus NL63 (PCR) Not detected Human Metapneumovir PCR Not detected Influenza Type A (PCR) Not detected Influenza Type B (PCR) Not detected M. pneumoniae (PCR) Not detected Parainfluenza 1 (PCR) Not detected Parainfluenza 2 (PCR) Not detected Parainfluenza 3 (PCR) Detected H Parainfluenza 4 (PCR) Not detected RSV (PCR) Not detected Entero/Rhino (PCR) Not detected PFSH Medical History Ankle pain Asthma Carpal tunnel syndrome Chicken pox Chronic back pain Chronic cough Degenerative joint disease of knee Depression Diabetes insipidus Ectopic breast tissue Elevated liver enzymes Facet arthropathy, lumbar Heavy menstrual period Herniated nucleus pulposus, L4-5 History of COVID-19 (~09/2022) Hypertension Leg numbness Lumbar radiculopathy Lumbar spinal stenosis Lumbar spondylosis Measles Neuroforaminal stenosis of lumbar spine Osteoarthritis Painful menstrual periods Shoulder bursitis Vertigo Surgical History Anesthesia History of History of surgery (10/29/18) Hx of Achilles tendon repair (~2004) Family History Father Gallstones Diabetes mellitus Mother Diabetes mellitus Hyperlipidemia Hypertension Mental health problem Sister Diabetes mellitus Heart disease Mental health problem Grandfather Heart disease Grandmother Heart disease Brother Heart disease Diabetes mellitus Hyperlipidemia Hypertension Family/Other Colorectal cancer Brother Cirrhosis Social History marital status: household members: spouse and children occupational status: previously employed Smoking Status: Never smoker alcohol intake: current substance use type: does not use Discharge Plan Discharge Plan Patient Disposition: SNF Transfer to: [facility] Rehabilitation and Healthcare Provider Discharge Comment: 69 F with parainfluenza infection, acute respiratory failure with probable bacterial MSSA PNA. Evaluation with therapies recommending SNF rehab prior to return home. Discharge orders & Medications Prescriptions: New prednisone 20 mg Tablet 40 mg PO DAILY 2 Days Qty: 4 0RF albuterol sulfate 90 mcg/actuation HFA aerosol inhaler 1 inh inhalation QID PRN (Reason: shortness of breath or wheezing) 30 Days Qty: 8.5 0RF Continued cholecalciferol (vitamin D3) 125 mcg (5,000 unit) tablet 125 mcg PO DAILY Qty: 90 2RF sertraline [Zoloft] 50 mg tablet 75 mg PO DAILY Qty: 135 1RF Rx Instructions: Take 1-1/2 tablets once daily for depression ibuprofen [IBU] 600 mg tablet 600 mg PO Q6-8H PRN (Reason: fever or pain) Follow up/Referrals: Fletcher Menezes MD [Primary Care Provider, Family Practice] Discharge Health Status Multidrug resistant organism: No MDRO Precautions: [place] Diet/Activity/Treatments Diet: Diet as Tolerated and Regular Liquid consistency: Normal/Thin Food texture: Regular Activity: As tolerated, no restrictions Oxygen: Continue as needed goal O2 89-96% while on supplemental therapy. Special Rehabilitation Services Reason for rehabilitation: Recovery r/t decondition Rehab type: Physical therapy and Occupational therapy Visit Report/Discharge Packet Instructions: DI for Influenza -- Adult Stand Alone Forms: Patient Portal/API Discharge Data Primary Care Provider: Fletcher Menezes VTE Deep Vein Thrombosis/Pulmonary Embolism Present on Admission: No
--- NOTE | 2024-11-15 13:22 | OT.IPNOTE ---
Pt sitting up in chair on entrance of OT. Pt reports she is getting ready to d/c to [facility] and asks not to have OT at this time. Pt reports that she is tired from taking a shower this morning and would like to rest prior to d/c.
--- NOTE | 2024-11-15 14:28 | PC.NURSE ---
Patient alert and oriented, denies pain, took a shower today with assistance of BUS STEWARD. Patient fatigued after taking a shower, noted at 85% on 2L after her exertion and quickly recovered back in bed to 92% on 2L. Patient has no further complaints today, she is excited to get out of her hospital room and transfer to SNF. Report called to Kyle at [facility] ([phone]). Patient picked up by facility transport via wheelchair will all her belongings. IV removed intact. is at her bedside.
--- NOTE | 2024-11-15 14:44 | PT-IP ANOTE ---
Pt declined treatment, states transportation should be here any minute to take her to SNF and will get her daily tx there. She states is eager to work with PT in SNF for strength before returning home.
== END 2024-11-15 15:02 | DRG 177 ==
LOC: ED 15:25 → AC 15:27
PROVIDERS: Family Medicine; Internal Medicine; Admitting Provider Internal Medicine; Emergency Provider Emergency Medicine; Family Provider Family Medicine; PCP Family Medicine; Referring Provider Emergency Medicine; Visit Provider Internal Medicine
DX: J15.211 Pneumonia due to Methicillin susceptible Staphylococcus aureus (principal); J96.01 Acute respiratory failure with hypoxia; E66.813 Obesity, class 3; J12.2 Parainfluenza virus pneumonia; F32.A Depression, unspecified; Z68.37 Body mass index [BMI] 37.0-37.9, adult
CPT/HCPCS: 36415; 71045; 71250; 80048; 80053; 82805; 83605; 83880; 84484; 85025; 85610; 87040; 87070; 87077; 87147; 87186; 87205; 87633; 87797; 93005; 93010; 94640; 94667; 94668; 94760; 94762; 96365; 96367; 97110; 97116; 97162; 97166; 97530; 99285; C8929; J0690; J0692; J0696; J1644; J1938; J2543; J2919; J7613; Q9957

== ENCOUNTER → 2025-02-03 13:36 | Outpatient (CLI) | payer MEDICARE, SELFPAY ==
[2024-11-05 17:11] VITALS: BMI 37.0
--- NOTE | 2025-02-03 13:40 | DI.RAD.S_ITS ---
PROCEDURE: XR CHEST 2V INDICATIONS: pneumonia follow up TECHNIQUE: 2 views of the chest were acquired. COMPARISON: Located Within [facility], CT, CT CHEST WO CON, 11/09/2024, 8:31. Located Within [facility], CR, XR CHEST 1V, 11/08/2024, 14:56. Located Within [facility], CR, XR CHEST 1V, 11/05/2024, 13:32. FINDINGS: Surgical changes and devices: None. Lungs and pleura: Decreased but persistent, right lung airspace opacities with lateral predominant pleural thickening. Event attrition of the right hemidiaphragm. Mediastinum: Mediastinal contours are normal. Heart size is normal. Bones and chest wall: No suspicious bony abnormalities. Soft tissues appear unremarkable. IMPRESSION: Persistent but decreased right lung airspace opacities and right lateral pleural thickening. Recommend continued follow-up. Dictated by: Otoniel Dickerson M.D. on 02/03/2025 at 14:23 Approved by: Otoniel Dickerson M.D. on 02/03/2025 at 14:27
== END ==
PROVIDERS: Family Provider Family Medicine; PCP Family Medicine; Referring Provider Family Medicine; Visit Provider Family Medicine
DX: J18.9 Pneumonia, unspecified organism (principal); J21.0 Acute bronchiolitis due to respiratory syncytial virus; E66.01 Morbid (severe) obesity due to excess calories
CPT/HCPCS: 71046

== ENCOUNTER → 2025-03-16 13:21 | Outpatient (CLI) | payer MEDICARE, OTHER, SELFPAY ==
[2024-11-05 17:11] VITALS: BMI 37.0
--- NOTE | 2025-03-16 13:23 | DI.RAD.S_ITS ---
PROCEDURE: XR KNEE LT 3V INDICATIONS: bilateral knee pain TECHNIQUE: 3 views of the knee were acquired. COMPARISON: [facility], CR, XR KNEE LT 1TO2V, 04/18/2023, 10:18. [facility], CR, XR KNEE LT 3V, 11/11/2022, 14:02. FINDINGS: Bones: No fractures or dislocations. No suspicious bony lesions. 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 No hardware loosening or failure. Soft tissues: No joint effusion. Heterotopic calcification along the quadriceps tendon, which may represent postsurgical change. No radiopaque retained foreign body. IMPRESSION: No acute bony abnormality or significant effusion. Changes of left total knee arthroplasty without acute hardware complication. Possible heterotopic calcification about the distal quadriceps tendon. Dictated by: Otoniel Dickerson M.D. on 03/16/2025 at 13:39 Approved by: Otoniel Dickerson M.D. on 03/16/2025 at 13:40
--- NOTE | 2025-03-16 13:23 | DI.RAD.S_ITS ---
PROCEDURE: XR KNEE RT 3V INDICATIONS: bilateral knee pain TECHNIQUE: 3 views of the knee were acquired. COMPARISON: [facility], CR, XR KNEE LT 1TO2V, 04/18/2023, 10:18. [facility], CR, XR KNEE LT 3V, 11/11/2022, 14:02. FINDINGS: Bones: No fractures or dislocations. No suspicious bony lesions. Moderate medial compartment and patellofemoral compartment joint space narrowing small peripheral osteophytes. Soft tissues: No joint effusion. No suspicious soft tissue calcifications. IMPRESSION: No acute bony abnormality or significant effusion. Right knee medial compartment predominant grade 3 degenerative arthrosis. Dictated by: Otoniel Dickerson M.D. on 03/16/2025 at 13:38 Approved by: Otoniel Dickerson M.D. on 03/16/2025 at 13:39
== END ==
PROVIDERS: Family Provider Family Medicine; PCP Family Medicine; Referring Provider Family Medicine; Visit Provider Family Medicine
DX: E66.01 Morbid (severe) obesity due to excess calories (principal); M25.561 Pain in right knee; M25.562 Pain in left knee; Z96.652 Presence of left artificial knee joint; M17.11 Unilateral primary osteoarthritis, right knee
CPT/HCPCS: 73562

== ENCOUNTER → 2025-04-05 08:47 | Outpatient (CLI) | payer MEDICARE, OTHER, SELFPAY ==
[2025-03-23 13:40] VITALS: BMI 37.0
--- NOTE | 2025-04-05 08:48 | DI.RAD.S_ITS ---
PROCEDURE: XR CHEST 2V
[2025-04-05 09:48] LABS: Add Manual Diff / Slide Review NO; Hematocrit 41.4 % (36-46); Hemoglobin 14.0 g/dL (12.0-16.0); Lymphocytes Absolute Auto 2500 /uL (1100-4500); Mean Corpuscular HGB Conc 33.9 % (30-36); Mean Corpuscular Hemoglobin 30.7 PG (26-34); Mean Corpuscular Volume 90.7 fL (80-100); Platelet Count 444 X10^3/uL (150-400)
[2025-04-05 09:57] LABS: Hemoglobin A1C% w Est Avg Glu 5.9 % (4.0-6.0)
[2025-04-05 10:13] LABS: Alanine Aminotransferase 25 IU/L (<35); Albumin 3.1 g/dL (3.5-5.0); Albumin Globulin Ratio 0.8 (1.0-2.8); Alkaline Phosphatase 167 U/L (38-126); Blood Urea Nitrogen 12 mg/dL (7-17); Calcium 9.1 mg/dL (8.4-10.2); Carbon Dioxide 27 mmol/L (22-32); Chloride 109 mmol/L (98-107); Cholesterol 199 mg/dL (140-199); Estimated Glomerular Filt Rate > 60 mL/min (>60); Globulin 3.9 g/dL (1.7-4.1); Glucose 116 mg/dL (70-99); HDL Cholesterol 43 mg/dL (40-60); HEMOLYSIS < 15 (0-50); Potassium 4.9 mmol/L (3.4-5.1); Sodium 144 mmol/L (137-145); Total Protein 7.0 g/dL (6.3-8.2); Triglycerides 153 mg/dL (35-150)
[2025-04-05 10:41] LABS: TSH w/ Reflex to FT4 3.64 uIU/mL (0.47-4.68)
[2025-04-05 11:08] LABS: Microalbumi Creatinin Ratio Ur 107.0 ug/mg CR (<30)
== END ==
PROVIDERS: Family Provider Family Medicine; PCP Family Medicine; Referring Provider Family Medicine; Visit Provider Family Medicine
DX: R06.02 Shortness of breath (principal); E66.01 Morbid (severe) obesity due to excess calories; J96.01 Acute respiratory failure with hypoxia; J18.9 Pneumonia, unspecified organism; E55.9 Vitamin D deficiency, unspecified; R74.8 Abnormal levels of other serum enzymes; I10 Essential (primary) hypertension
CPT/HCPCS: 36415; 71046; 80053; 80061; 82043; 82570; 83036; 84443; 85025